=== PATIENT | male | born 1950 | race Caucasian/White ===

== ENCOUNTER 2022-08-19 10:56 | Inpatient (IN) | payer MEDICARE, OTHER, SELFPAY ==
[2022-08-19] VITALS (10 sets, daily range): BP systolic 89–125; BP diastolic 50–84; PULSE 59–83; RESP 6–23; TEMP 36.6–36.7; O2SAT 89–95; BMI 33.5; BMI 33.0
--- NOTE | 2022-08-19 11:04 | XR_ITS ---
The [address] [address] Patient Name: KYLIE RUEDA MRN: [id number] date: 1950 Sex: M Assigned Patient Location: ER Current Patient Location: ER Accession/Order Number: [id number] Exam Date: 08/19/2022 11:10 Report Date: 08/19/2022 11:40 At the request of: DAVON ORTIZ Procedure: XR chest 1V EXAM: XR chest 1V HISTORY: possible CVA COMPARISON: None. TECHNIQUE: Chest X-ray AP, 1 view FINDINGS: Support devices: None. Lungs/pleura: No consolidation, effusion, or pneumothorax. Heart and mediastinum: Normal contours. Bones: No acute abnormality identified. Impression: No radiographic evidence of acute cardiopulmonary process. Electronically authenticated by: XAVIER SLOAN Date: 08/19/2022 11:40
--- NOTE | 2022-08-19 11:04 | ECG_ITS ---
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
--- NOTE | 2022-08-19 11:04 | CT_ITS ---
The [address] [address] Patient Name: KYLIE RUEDA MRN: [id number] date: 1950 Sex: M Assigned Patient Location: ER Current Patient Location: ED.MAIN Accession/Order Number: [id number] Exam Date: 08/19/2022 11:10 Report Date: 08/19/2022 11:32 At the request of: DAVON ORTIZ Procedure: CT stroke head/brain wo con EXAM: CT stroke head/brain wo con HISTORY: speech difficulty since last night COMPARISON: 01/24/2022 TECHNIQUE: CT images were obtained of the head without intravenous contrast. Images were reformatted in the coronal and sagittal planes. FINDINGS: No acute intracranial hemorrhage. No acute loss of alanis/white differentiation. The ventricles and sulci are normal in appearance. The osseous structures are unremarkable. No soft tissue abnormality identified. There is a small amount of mucus in the right sphenoid sinus. Otherwise the paranasal sinuses are clear. IMPRESSION: 1. No acute intracranial abnormality. 2. Mild acute sphenoid sinusitis. Findings were reported to Dr. Ortiz at 1131 hours on 08/19/2022. Electronically authenticated by: BHARAT NEGRON Date: 08/19/2022 11:32
--- NOTE | 2022-08-19 11:06 | ED.NEUROSD1 ---
HPI - Neuro Symptoms/Deficit General Chief Complaint: Neuro Symptoms/Deficit Stated Complaint: STROKE LIKE SYMPTOMS Time Seen by Provider: 08/19/22 10:57 Source: patient and family Mode of arrival: Wheelchair History of Present Illness HPI Narrative: 71-year-old male presents for weakness. Since last night he's been dropping things with both hands and he's had trouble with his speech. He had a headache on the way here but not now. He had a stroke years ago. He fell apparently last night and hit his head. Related Data Home Medications Medication Instructions Recorded Confirmed albuterol sulfate 90 mcg/actuation inhalation 08/19/22 aerosol inhaler atorvastatin 40 mg tablet 40 mg PO DAILY 08/19/22 08/19/22 baclofen 10 mg tablet 10 mg PO TID 08/19/22 08/19/22 carbamazepine 400 mg 400 mg PO Q12H 08/19/22 08/19/22 tablet,extended release,12 hr clopidogrel 75 mg tablet 75 mg PO DAILY 08/19/22 08/19/22 diazepam 5 mg tablet 5 mg PO Q8H PRN anxiety 08/19/22 08/19/22 duloxetine 60 mg capsule,delayed 120 mg PO DAILY 08/19/22 08/19/22 release fluticasone propionate 50 1 spray intranasal DAILY 08/19/22 08/19/22 mcg/actuation nasal spray,suspension furosemide 40 mg tablet 40 mg PO DAILY 08/19/22 08/19/22 levalbuterol tartrate 45 2 puff inhalation Q6H 08/19/22 08/19/22 mcg/actuation aerosol inhaler lisinopril 10 mg tablet 10 mg PO DAILY 08/19/22 08/19/22 loratidine 10 mg PO .morning 08/19/22 08/19/22 magnesium hydroxide 400 mg/5 mL 30 ml PO DAILY PRN constipation 08/19/22 08/19/22 oral suspension montelukast 10 mg tablet 10 mg PO DAILY 08/19/22 08/19/22 omeprazole 40 mg capsule,delayed 40 mg PO DAILY 08/19/22 08/19/22 release oxycodone 5 mg capsule 5 mg PO Q8H 08/19/22 08/19/22 pregabalin 100 mg capsule 100 mg PO Q12H 08/19/22 08/19/22 terazosin 2 mg capsule 2 mg PO Q12H 08/19/22 08/19/22 verapamil 240 mg tablet,extended 240 mg PO DAILY 08/19/22 08/19/22 release Allergies Allergy/AdvReac Type Severity Reaction Status Date / Time contrast AdvReac Unknown Uncoded 08/19/22 11:04 Review of Systems ROS Narrative A ten point review of systems is negative except as noted above. Exam Narrative Exam Narrative: Nurses note and vital signs reviewed and patient is not hypoxic. General: The patient appears in no apparent distress. Patient is resting comfortably on cart. Skin: Warm, dry, no pallor noted. There is no rash noted. Head: Normocephalic, atraumatic Eye: Normal conjunctiva, no drainage, EOMI. PERRL Ears, Nose, Mouth, and Throat: oral mucosa is moist. Nares patent. Cardiovascular: Regular Rate and Rhythm Respiratory: Patient is in no distress, no accessory muscle use, lungs are clear to auscultation, no wheezing, rales or rhonchi Back: non-tender GI: nontender. Morphine pain pump present in the left lower quadrant Musculoskeletal: The patient has no evidence of calf tenderness, no pitting edema, symmetrical pulses noted bilaterally Neurological: A&O x4, speech is slightly slurred. Cranial nerves II through XII intact. Upper and lower extremity strength is symmetric. Psychiatric: Cooperative Constitutional Vital Signs - 24 hr 08/19/22 10:59 08/19/22 11:00 08/19/22 11:00 Temperature 98 F Pulse Rate 62 Pulse Rate [Monitor] 83 Respiratory Rate 22 16 Blood Pressure 123/67 H Blood Pressure [Right Arm] 123/67 H Pulse Oximetry 91 L 92 L 91 L Oxygen Delivery Method Room Air 08/19/22 11:00 Temperature Pulse Rate 59 L Pulse Rate [Monitor] Respiratory Rate 10 L Blood Pressure 123/67 H Blood Pressure [Right Arm] Pulse Oximetry 89 L Oxygen Delivery Method Course Vital Signs Vital signs: Vital Signs Temperature 98 F 08/19/22 10:59 Pulse Rate 83 08/19/22 10:59 Respiratory Rate 22 08/19/22 10:59 Blood Pressure 123/67 H 08/19/22 10:59 Pulse Oximetry 91 L 08/19/22 10:59 Oxygen Delivery Method Room Air 08/19/22 10:59 Temperature 98 F 08/19/22 10:59 Pulse Rate 61 08/19/22 12:39 Respiratory Rate 8 L 08/19/22 12:39 Blood Pressure 91/54 L 08/19/22 12:39 Pulse Oximetry 92 L 08/19/22 12:39 Oxygen Delivery Method Room Air 08/19/22 10:59 MDM - Neuro Symptoms/Deficit MDM Narrative Medical decision making narrative: patient is found to have acute kidney injury with a creatinine of 2.5. It was 1.09 in January. He is given gentle IV fluids and will be admitted. Clinically I do not suspect a stroke. Findings are discussed with the patient and his daughter. Differential Diagnosis Differential diagnosis: Likely other (stroke, electrolyte imbalance, acute kidney injury, hypoglycemia) Lab Data Attestation: I reviewed the patient's lab results. Labs: Lab Results 08/19/22 08/19/22 Range/Units 11:05 11:49 WBC 8.8 (4.0-11.0) 10^3/uL RBC 3.83 L (4.70-6.10) 10^6/uL Hgb 11.6 L (14.0-18.0) g/dL Hct 34.9 L (42.0-54.0) % MCV 91.1 (80.0-94.0) fL MCH 30.3 (25.9-34.0) pg MCHC 33.2 (29.9-35.2) g/dL RDW 13.6 (11.0-15.0) % Plt Count 295 (150-450) 10^3/uL MPV 9.0 L (9.5-13.5) fL Neut % (Auto) 56.2 (43.0-75.0) % Lymph % (Auto) 30.7 (20.5-60.0) % [place] % (Auto) 9.4 (1.7-12.0) % Eos % (Auto) 2.8 (0.9-7.0) % Baso % (Auto) 0.6 (0.2-2.0) % Neut # (Auto) 4.9 (1.4-6.5) 10^3/uL Lymph # (Auto) 2.7 (1.2-3.8) 10^3/uL [place] # (Auto) 0.8 (0.3-0.8) 10^3/uL Eos # (Auto) 0.3 (0.0-0.7) 10^3/uL Baso # (Auto) 0.1 (0.0-0.1) 10^3/uL Abs Immat Gran (auto) 0.03 (0.00-0.03) 10^3/uL Imm/Tot Granulo (auto) 0.3 (0.0-0.5) % PT 10.3 (9.0-11.6) sec INR 0.97 APTT 21.6 L (22.3-36.2) sec Sodium 140 (136-145) mmol/L Potassium 3.6 (3.5-5.1) mmol/L Chloride 101 (98-107) mmol/L Carbon Dioxide 29.8 (21.0-32.0) mmol/L Anion Gap 12.8 BUN 27.0 H (7.0-18.0) mg/dL Creatinine 2.50 H (0.70-1.30) mg/dL Est GFR ( Amer) 31 L (>=60) Est GFR (Non-Af Amer) 25 L (>=60) BUN/Creatinine Ratio 10.8 Glucose 126 H (74-106) mg/dL Calcium 8.9 (8.5-10.1) mg/dL Total Bilirubin 0.4 (0.2-1.0) mg/dL AST 18 (15-37) U/L ALT 24 (16-63) U/L Alkaline Phosphatase 90 (46-116) U/L Total Protein 7.5 (6.4-8.2) g/dL Albumin 3.8 (3.4-5.0) g/dL Globulin 3.7 g/dL Albumin/Globulin Ratio 1.0 POC Glucose 124 H (74-106) mg/dL ECG Data Attestation: I personally reviewed and interpreted this ECG as follows: (EKG on my interpretation shows sinus rhythm with a rate of 74) Discharge Plan Discharge Chief Complaint: Neuro Symptoms/Deficit Clinical Impression: Acute kidney injury Patient Disposition: Admitted as Observation Time of Disposition Decision: 12:32 Condition: Good
[2022-08-19 11:26] LABS: Basophils Absolute Auto 0.1 10^3/uL (0.0-0.1); Basophils Percent Auto 0.6 % (0.2-2.0); Eosinophils Absolute Auto 0.3 10^3/uL (0.0-0.7); Eosinophils Percent Auto 2.8 % (0.9-7.0); Hematocrit 34.9 % (42.0-54.0); Hemoglobin 11.6 g/dL (14.0-18.0); Immature Granulocytes Abs Auto 0.03 10^3/uL (0.00-0.03); Immature Granulocytes Pct Auto 0.3 % (0.0-0.5); Lymphocytes Absolute Auto 2.7 10^3/uL (1.2-3.8); Lymphocytes Percent Auto 30.7 % (20.5-60.0); Mean Corpuscular HGB Conc 33.2 g/dL (29.9-35.2); Mean Corpuscular Hemoglobin 30.3 pg (25.9-34.0); Mean Corpuscular Volume 91.1 fL (80.0-94.0); Monocytes Absolute Auto 0.8 10^3/uL (0.3-0.8); Monocytes Percent Auto 9.4 % (1.7-12.0); Neutrophils Absolute Auto 4.9 10^3/uL (1.4-6.5); Neutrophils Percent Auto 56.2 % (43.0-75.0); Platelet Count 295 10^3/uL (150-450); Red Blood Count 3.83 10^6/uL (4.70-6.10); Red Cell Distribution Width 13.6 % (11.0-15.0); White Blood Count 8.8 10^3/uL (4.0-11.0)
[2022-08-19 11:39] LABS: Alanine Aminotransferase 24 U/L (16-63); Albumin Level 3.8 g/dL (3.4-5.0); Alkaline Phosphatase 90 U/L (46-116); Anion Gap 12.8; Aspartate Amino Transferase 18 U/L (15-37); BUN Creatinine Ratio 10.8; Bilirubin Total 0.4 mg/dL (0.2-1.0); Calcium 8.9 mg/dL (8.5-10.1); Carbon Dioxide 29.8 mmol/L (21.0-32.0); Chloride 101 mmol/L (98-107); Estimated GFR (African America 31 (>=60); Estimated GFR (Non-African Ame 25 (>=60); Globulin 3.7 g/dL; Glucose 126 mg/dL (74-106); Potassium 3.6 mmol/L (3.5-5.1); Sodium 140 mmol/L (136-145); Total Protein 7.5 g/dL (6.4-8.2)
[2022-08-19 11:49] LABS: INR 0.97; Partial Thromboplastin Time 21.6 sec (22.3-36.2); Prothrombin Time 10.3 sec (9.0-11.6)
[2022-08-19 11:50] LABS: Glucometer 124 mg/dL (74-106)
[2022-08-19] MEDS: 0.9 % SODIUM CHLORIDE 1,000 ML 100 ML IV ×2 (13:02→21:05)
[2022-08-19] MEDS: ENOXAPARIN SODIUM 30 MG/0.3 ML SYRINGE SUBQ (18:27)
[2022-08-19] MEDS: DIAZEPAM 5 MG TABLET PO ×2 (18:27→23:37)
[2022-08-19] MEDS: OXYCODONE HCL 5 MG TABLET PO (18:27)
[2022-08-19] MEDS: PREGABALIN 100 MG CAPSULE PO (18:27)
[2022-08-19] MEDS: MONTELUKAST SODIUM 10 MG TABLET PO (19:47)
[2022-08-19] MEDS: ATORVASTATIN CALCIUM 40 MG TABLET PO (19:47)
[2022-08-19] MEDS: BACLOFEN 10 MG TABLET PO (21:04)
[2022-08-19] MEDS: TERAZOSIN HCL 1 MG CAPSULE 2 MG PO (21:04)
[2022-08-19] MEDS: CARBAMAZEPINE 200 MG TABLET 400 MG PO (21:04)
[2022-08-19] MEDS: LEVALBUTEROL HCL 1.25 MG/3 ML VIAL NEB IH (22:38)
[2022-08-20] VITALS (8 sets, daily range): BP systolic 102–143; BP diastolic 60–72; PULSE 59–71; RESP 16–18; TEMP 36.6–36.8; O2SAT 92–97; BMI 33.0
[2022-08-20] MEDS: LEVALBUTEROL HCL 1.25 MG/3 ML VIAL NEB IH (04:20)
[2022-08-20] MEDS: BACLOFEN 10 MG TABLET PO ×3 (05:11→21:34)
[2022-08-20] MEDS: OXYCODONE HCL 5 MG TABLET PO ×3 (05:11→21:34)
[2022-08-20] MEDS: DIAZEPAM 5 MG TABLET PO ×3 (05:11→19:50)
[2022-08-20] MEDS: OMEPRAZOLE 40 MG CAPSULE.DR PO (05:11)
[2022-08-20] MEDS: PREGABALIN 100 MG CAPSULE PO ×2 (05:12→21:34)
[2022-08-20] MEDS: 0.9 % SODIUM CHLORIDE 1,000 ML 100 ML IV (05:13)
[2022-08-20 05:55] LABS: Anion Gap 13.7; BUN Creatinine Ratio 14.7; Calcium 8.3 mg/dL (8.5-10.1); Carbon Dioxide 26.6 mmol/L (21.0-32.0); Chloride 105 mmol/L (98-107); Estimated GFR (African America 51 (>=60); Estimated GFR (Non-African Ame 42 (>=60); Glucose 126 mg/dL (74-106); Potassium 3.3 mmol/L (3.5-5.1); Sodium 142 mmol/L (136-145)
--- NOTE | 2022-08-20 08:38 | SWNOTE1 ---
SW met with pt to discuss dc needs. Pt live at home by himself. His daughter does stop and check on him as needed. Pt has walker, wheelchair, and cane at home. He will use whatever device he needs. Pt does still drive and go to grocery store, but stated it depends how he feels. He did voice he has some depression and anxiety. He does take medication for it. SW asked if he spoke with his PCP about adjusting his meds, he stated no. SW asked if he went to any kind of counseling? Pt stated he does not, but he would take resources. SW to give pt list of counseling in area. Pt let SW know that his daughter would like him to have home health come in to do medication education. SW did show pt star rating list from medicare.gov, pt does not have a preference. SW to send referral to [facility]. HEBERT did ask permission to call pt's daughter as well. SW to call daughter to see if she has preference on home health company.
[2022-08-20] MEDS: CARBAMAZEPINE 200 MG TABLET 400 MG PO ×2 (08:58→21:41)
[2022-08-20] MEDS: VERAPAMIL HCL ER 240 MG TABLET PO (08:59)
[2022-08-20] MEDS: DULOXETINE HCL 60 MG CAPSULE.DR PO (08:59)
[2022-08-20] MEDS: CLOPIDOGREL BISULFATE 75 MG TABLET PO (08:59)
[2022-08-20] MEDS: CETIRIZINE HCL 10 MG TABLET PO (09:01)
[2022-08-20] MEDS: FLUTICASONE PROPIONATE 50 MCG NASAL SPRAY 1 SPRAY NS (09:02)
--- NOTE | 2022-08-20 09:02 | SWNOTE1 ---
HEBERT spoke with pt's daughter, Kathy, about dc plans for pt. She did voice that pt does not take his meds and also has a fall once a week at home. SW let her know we will see how he does with therapy and what their recommendations are. HEBERT asked daughter about home health and if she had a preference, she stated they would like [facility] as he has had them in past. HEBERT to send referral.
--- NOTE | 2022-08-20 11:32 | CM.NOTE ---
Rounds made with Dr. Black, no discharge today. PT and OT will evaluate pt and we will follow for discharg needs.
--- NOTE | 2022-08-20 12:27 | PM.HP ---
H&P: HPI History of Present Illness Chief complaint: Weakness Narrative: 71 y/o male to ER with weakness x 2 days. Reports decreased appetite and not eating or drinking much. Started to drop things and had a fall. Continued to have weakness and to ER. Afebrile and normal WBC. No focal deficits in ER and urine normal. Labs showed acute renal failure with estimated GFR 25. Review of records show normal GFR >60 in January of 2022. Admitted for treatment. Started IV fluids. Labs improved overnight but still abnormal. Strength improved but continues to have weakness. Review of Systems ROS Constitutional Denies: fever, chills or night sweats Cardiovascular Denies: chest pain, palpitations or edema Respiratory Denies: shortness of breath, cough or wheezing Gastrointestinal Denies: abdominal pain, nausea, vomiting or diarrhea Genitourinary Denies: painful urination [facility] Medical History (Updated 08/20/22 @ 12:32 by Phan Black MD) Surgical History (Updated 08/19/22 @ 14:33 by Sandra Brooks RN) Family History (Updated 08/19/22 @ 14:16 by Sandra Brooks RN) Sister Family history of cancer Social History (Updated 08/19/22 @ 14:18 by Sandra Brooks RN) Within the past year, how often did you have a drink containing alcohol: never Score interpretation: A score less than 4 is consistent with normal alcohol consumption. Smoking status: Never smoker Non-prescribed substance use: denies use Little interest or pleasure in doing things: several days Feeling down, depressed, or hopeless: several days Feel stressed/tense/nervous/anxious/difficulty sleeping: to some extent Gender Identity: male Meds Home Medications and Allergies Home Medications Medication Instructions Recorded Confirmed Type albuterol sulfate 90 mcg/actuation 1 inh inhalation Q4H PRN shortness 08/19/22 08/19/22 History aerosol inhaler of breath or wheezing atorvastatin 40 mg tablet 40 mg PO DAILY 08/19/22 08/19/22 History baclofen 10 mg tablet 10 mg PO TID 08/19/22 08/19/22 History carbamazepine 400 mg 400 mg PO Q12H 08/19/22 08/19/22 History tablet,extended release,12 hr clopidogrel 75 mg tablet 75 mg PO DAILY 08/19/22 08/19/22 History diazepam 5 mg tablet 5 mg PO Q6H anxiety 08/19/22 08/19/22 History duloxetine 60 mg capsule,delayed 60 mg PO DAILY 08/19/22 08/19/22 History release fluticasone propionate 50 1 spray intranasal DAILY 08/19/22 08/19/22 History mcg/actuation nasal spray,suspension furosemide 40 mg tablet 40 mg PO DAILY 08/19/22 08/19/22 History levalbuterol tartrate 45 2 puff inhalation Q6H 08/19/22 08/19/22 History mcg/actuation aerosol inhaler lisinopril 10 mg tablet 10 mg PO DAILY 08/19/22 08/19/22 History loratadine 10 mg PO DAILY 08/19/22 08/19/22 History magnesium hydroxide 400 mg/5 mL 30 ml PO DAILY PRN constipation 08/19/22 08/19/22 History oral suspension montelukast 10 mg tablet 10 mg PO DAILY 08/19/22 08/19/22 History omeprazole 40 mg capsule,delayed 40 mg PO DAILY 08/19/22 08/19/22 History release oxycodone 5 mg capsule 5 mg PO Q8H PRN pain 08/19/22 08/19/22 History pregabalin 100 mg capsule 100 mg PO Q12H 08/19/22 08/19/22 History terazosin 2 mg capsule 2 mg PO DAILY 08/19/22 08/19/22 History verapamil 240 mg tablet,extended 240 mg PO DAILY 08/19/22 08/19/22 History release Allergies Allergy/AdvReac Type Severity Reaction Status Date / Time contrast AdvReac Unknown Uncoded 08/19/22 11:04 Exam Constitutional Vital Signs - 24 hr 08/19/22 12:39 08/19/22 12:39 08/19/22 13:00 Temperature Pulse Rate 61 59 L 61 Pulse Rate [Monitor] Respiratory Rate 8 L 6 L 21 Blood Pressure 91/54 L 91/54 L 89/50 L Blood Pressure [Right Arm] Pulse Oximetry 92 L 95 95 Oxygen Delivery Method 08/19/22 13:31 08/19/22 14:27 08/19/22 14:43 Temperature 98.1 F Pulse Rate 60 60 Pulse Rate [Monitor] Respiratory Rate 23 18 Blood Pressure 98/52 L Blood Pressure [Right Arm] 125/84 H Pulse Oximetry 93 L 93 L Oxygen Delivery Method Room Air Room Air 08/19/22 19:33 08/19/22 21:03 08/19/22 22:38 Temperature 98.0 F Pulse Rate 70 62 Pulse Rate [Monitor] 83 Respiratory Rate 18 18 18 Blood Pressure Blood Pressure [Right Arm] 118/61 Pulse Oximetry 90 L 92 L Oxygen Delivery Method Room Air 08/19/22 22:50 08/20/22 04:20 08/20/22 04:33 Temperature Pulse Rate 60 59 L 63 Pulse Rate [Monitor] Respiratory Rate 18 18 18 Blood Pressure Blood Pressure [Right Arm] Pulse Oximetry 95 92 L 95 Oxygen Delivery Method Room Air Room Air 08/20/22 04:20 08/20/22 05:02 08/20/22 08:00 Temperature 98.0 F Pulse Rate 59 L 70 Pulse Rate [Monitor] Respiratory Rate 18 18 16 Blood Pressure Blood Pressure [Right Arm] Pulse Oximetry 92 L 97 Oxygen Delivery Method Room Air Room Air 08/20/22 08:59 Temperature Pulse Rate Pulse Rate [Monitor] Respiratory Rate Blood Pressure 102/60 Blood Pressure [Right Arm] Pulse Oximetry Oxygen Delivery Method Documenting provider has reviewed patient's vital signs: yes Common normals: no apparent distress, oriented x3 and alert HENMT Common normals: normocephalic Eye Common normals: PERRL and EOMs intact bilaterally Respiratory Common normals: clear to auscultation bilaterally Cardio Common normals: regular rate, regular rhythm, no gallops, no murmurs and no rub Extremity General: no edema Results Labs Labs: [facility] 08/20/22 05:10 Sodium 142 Potassium 3.3 L Chloride 105 Carbon Dioxide 26.6 BUN 24.0 H Creatinine 1.63 H Glucose 126 H Calcium 8.3 L Assessment and Plan Assessment and Plan (1) Acute renal failure: (2) Dehydration: (3) Generalized weakness: (4) Hypertension: (5) Paroxysmal atrial fibrillation: (6) COPD (chronic obstructive pulmonary disease): Plan Presented with acute renal failure as evidenced by reduction of GFR >50% from baseline. Continue IV fluids and monitor labs. Resume home medication. Start PT/OT for weakness. Patient will need at least 2 midnights in the hospital.
--- NOTE | 2022-08-20 14:37 | SWNOTE1 ---
HEBERT called and spoke with Nilda at [facility] health and they are able to accept. SW let her know he may need to go to SNF, but if he does not and is discharged, SW will leave information for nursing to fax dc orders.
[2022-08-20] MEDS: 0.9 % SODIUM CHLORIDE 1,000 ML 1000 ML IV (16:31)
[2022-08-20] MEDS: ENOXAPARIN SODIUM 30 MG/0.3 ML SYRINGE SUBQ (17:52)
[2022-08-20] MEDS: ATORVASTATIN CALCIUM 40 MG TABLET PO (19:50)
[2022-08-20] MEDS: MONTELUKAST SODIUM 10 MG TABLET PO (19:50)
[2022-08-20 20:40] LABS: Glucometer 123 mg/dL (74-106)
[2022-08-20] MEDS: TERAZOSIN HCL 1 MG CAPSULE 2 MG PO (21:34)
[2022-08-21] MEDS: DIAZEPAM 5 MG TABLET PO ×3 (00:57→19:56)
[2022-08-21] MEDS: 0.9 % SODIUM CHLORIDE 1,000 ML 100 ML IV ×3 (00:57→22:53)
[2022-08-21] MEDS: ACETAMINOPHEN 500 MG TABLET 1000 MG PO ×2 (00:57→19:51)
[2022-08-21] MEDS: BACLOFEN 10 MG TABLET PO ×3 (05:49→21:12)
[2022-08-21] MEDS: OMEPRAZOLE 40 MG CAPSULE.DR PO (05:49)
[2022-08-21] MEDS: PREGABALIN 100 MG CAPSULE PO ×2 (05:53→17:49)
[2022-08-21 06:00] VITALS: BP 91/53; PULSE 56; RESP 18; TEMP 36.7; O2SAT 93
[2022-08-21 06:21] LABS: Anion Gap 7.8; BUN Creatinine Ratio 16.1; Carbon Dioxide 28.3 mmol/L (21.0-32.0); Chloride 112 mmol/L (98-107); Estimated GFR (African America >60 (>=60); Estimated GFR (Non-African Ame >60 (>=60); Glucose 137 mg/dL (74-106); Potassium 4.1 mmol/L (3.5-5.1); Sodium 144 mmol/L (136-145)
[2022-08-21 06:22] LABS: Calcium 8.1 mg/dL (8.5-10.1)
[2022-08-21] MEDS: CARBAMAZEPINE 200 MG TABLET 400 MG PO ×2 (08:57→20:47)
[2022-08-21] MEDS: FLUTICASONE PROPIONATE 50 MCG NASAL SPRAY 1 SPRAY NS (08:57)
[2022-08-21] MEDS: CLOPIDOGREL BISULFATE 75 MG TABLET PO (08:57)
[2022-08-21] MEDS: VERAPAMIL HCL ER 240 MG TABLET PO (08:57)
[2022-08-21] MEDS: CETIRIZINE HCL 10 MG TABLET PO (08:58)
[2022-08-21] MEDS: DULOXETINE HCL 60 MG CAPSULE.DR PO (08:59)
[2022-08-21] MEDS: OXYCODONE HCL 5 MG TABLET PO ×2 (09:04→17:46)
[2022-08-21 09:38] LABS: Basophils Absolute Auto 0.1 10^3/uL (0.0-0.1); Basophils Percent Auto 0.9 % (0.2-2.0); Eosinophils Absolute Auto 0.3 10^3/uL (0.0-0.7); Eosinophils Percent Auto 5.9 % (0.9-7.0); Hematocrit 34.8 % (42.0-54.0); Hemoglobin 10.8 g/dL (14.0-18.0); Immature Granulocytes Abs Auto 0.01 10^3/uL (0.00-0.03); Immature Granulocytes Pct Auto 0.2 % (0.0-0.5); Lymphocytes Absolute Auto 2.4 10^3/uL (1.2-3.8); Lymphocytes Percent Auto 45.6 % (20.5-60.0); Mean Corpuscular Hemoglobin 29.8 pg (25.9-34.0); Mean Corpuscular Volume 95.9 fL (80.0-94.0); Mean Platelet Volume 9.3 fL (9.5-13.5); Monocytes Absolute Auto 0.5 10^3/uL (0.3-0.8); Monocytes Percent Auto 10.2 % (1.7-12.0); Neutrophils Percent Auto 37.2 % (43.0-75.0); Platelet Count 248 10^3/uL (150-450); Red Blood Count 3.63 10^6/uL (4.70-6.10); Red Cell Distribution Width 13.5 % (11.0-15.0); White Blood Count 5.3 10^3/uL (4.0-11.0)
--- NOTE | 2022-08-21 10:12 | P.DS_ITS ---
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 Reason for consult:: Home health 08/19/22 17:37 Occupational Therapy Eval and Treat Routine Physical Therapy Eval and Treat Routine DS: Diagnosis Discharge Diagnosis (1) Acute renal failure: (2) Dehydration: (3) Generalized weakness: (4) Hypertension: (5) Paroxysmal atrial fibrillation: (6) COPD (chronic obstructive pulmonary disease): DS: Summary Time Spent with Patient Time attestation: Total time spent providing and/or coordinating discharge services: Exam Constitutional Vital Signs, click to edit/add: Last Vital Signs Temp 98.1 F 08/21/22 06:00 Pulse 56 L 08/21/22 06:00 Resp 18 08/21/22 06:00 BP 91/53 L 08/21/22 06:00 Pulse Ox 93 L 08/21/22 06:00 O2 Del Method Room Air 08/21/22 06:00 DS: Data Data Completed and Pending Labs on day of discharge: Labs from last 24 hours 08/21/22 08/21/22 08/20/22 09:23 04:00 20:16 WBC 5.3 RBC 3.63 L Hgb 10.8 L Hct 34.8 L MCV 95.9 H MCH 29.8 MCHC 31.0 RDW 13.5 Plt Count 248 MPV 9.3 L Neut % (Auto) 37.2 L Lymph % (Auto) 45.6 [place] % (Auto) 10.2 Eos % (Auto) 5.9 Baso % (Auto) 0.9 Neut # (Auto) 2.0 Lymph # (Auto) 2.4 [place] # (Auto) 0.5 Eos # (Auto) 0.3 Baso # (Auto) 0.1 Abs Immat Gran (auto) 0.01 Imm/Tot Granulo (auto) 0.2 Sodium 144 Potassium 4.1 Chloride 112 H Carbon Dioxide 28.3 Anion Gap 7.8 BUN 18.0 Creatinine 1.12 Est GFR ( Amer) >60 Est GFR (Non-Af Amer) >60 BUN/Creatinine Ratio 16.1 Glucose 137 H Calcium 8.1 L POC Glucose 123 H Discharge Plan Discharge Condition: Good Discharge Medications: No Action atorvastatin 40 mg tablet 40 mg PO DAILY baclofen 10 mg tablet 10 mg PO TID carbamazepine 400 mg tablet extended release 12 hr 400 mg PO Q12H clopidogrel 75 mg tablet 75 mg PO DAILY diazepam 5 mg tablet 5 mg PO Q6H duloxetine 60 mg capsule,delayed release(DR/EC) 60 mg PO DAILY furosemide 40 mg tablet 40 mg PO DAILY levalbuterol tartrate 45 mcg/actuation HFA aerosol inhaler 2 puff INHALATION Q6H lisinopril 10 mg tablet 10 mg PO DAILY montelukast 10 mg tablet 10 mg PO DAILY pregabalin 100 mg capsule 100 mg PO Q12H terazosin 2 mg capsule 2 mg PO DAILY albuterol sulfate 90 mcg/actuation HFA aerosol inhaler 1 inh INHALATION Q4H PRN (Reason: shortness of breath or wheezing) fluticasone propionate 50 mcg/actuation spray,suspension 1 spray INTRANASAL DAILY loratadine 10 mg PO DAILY magnesium hydroxide 400 mg/5 mL suspension 30 ml PO DAILY PRN (Reason: constipation) omeprazole 40 mg capsule,delayed release(DR/EC) 40 mg PO DAILY oxycodone 5 mg capsule 5 mg PO Q8H PRN (Reason: pain) verapamil 240 mg tablet extended release 240 mg PO DAILY
[2022-08-21 11:30] LABS: Glucometer 166 mg/dL (74-106)
--- NOTE | 2022-08-21 11:31 | PT.DAILY ---
Physical Therapy Daily Note PT Daily Note/Assess Start: 08/21/22 11:25 Freq: Status: Active Protocol: Document 08/21/22 10:25 GABRIEL (Rec: 08/21/22 11:31 GABRIEL [id number]) Physical Therapy Daily Note/Assessment Time In/Time Out Time In 10:26 Time Out 10:50 Pain In Pain N/A Pain Out Pain N/A Subjective Subjective Patient reports feeling better today, not as shaky. On fence if we wants to go home with home health or to SNF. Therapeutic Exercise Time Therapeutic Exercise Minutes (minutes) 10 Therapeutic Exercise Units 1 Therapeutic Exercise Treatment Therapeutic Exercise Treatment Seated exercises B LE with AROM sitting EOB 15 reps each plane to promote improved strength. Therapeutic Activity Time Therapeutic Activity Minutes (minutes) 14 Therapeutic Activity Units 1 Therapeutic Activity Treatment Bed Mobility Ability Modified Independent Chair Transfer Ability Standby Assistance Therapeutic Activity Comments Patient also ambulates 50 ft. with RW SBA. Cues for safety. Total Physical Therapy Time Total Therapy Minutes 24 Total Physical Therapy Units 2 Summary Daily Note Summary Patient does demonstrate improved ability with transfers and gait today. Does get dizzy post RX requiring patient to lay down. Patient does requires cues for safety and continues to demonstrate B LE weakness. Would benefit more from short SNF stay vs HH at this time. This was discussed with patient and he agrees.
[2022-08-21 13:16] VITALS: BP 158/89; PULSE 59; RESP 20; TEMP 36.7; O2SAT 94
--- NOTE | 2022-08-21 15:09 | P.PN_ITS ---
Progress Note: Subjective Subjective Interval history: Patient is ambulating somewhat better. But when working with physical therapy he had a near syncopal episode Exam Constitutional Vital Signs, click to edit/add: Last Vital Signs Temp 98.1 F 08/21/22 13:16 Pulse 59 L 08/21/22 13:16 Resp 20 08/21/22 13:16 BP 158/89 H 08/21/22 13:16 Pulse Ox 94 L 08/21/22 13:16 O2 Del Method Room Air 08/21/22 13:16 [facility] Common normals: normocephalic Chest Common normals: inspection of chest normal Respiratory Common normals: normal respiratory effort, no retractions and clear to auscultation bilaterally Cardio Common normals: regular rate, regular rhythm and no murmurs GI Common normals: Normal to inspection, nondistended, normoactive bowel sounds present, soft to palpation, non-tender and no masses Progress Note: Objective Labs Labs: Short CBC 08/21/22 Range/Units 09:23 WBC 5.3 (4.0-11.0) 10^3/uL Hgb 10.8 L (14.0-18.0) g/dL Hct 34.8 L (42.0-54.0) % Plt Count 248 (150-450) 10^3/uL BMP 08/21/22 04:00 Sodium 144 Potassium 4.1 Chloride 112 H Carbon Dioxide 28.3 BUN 18.0 Creatinine 1.12 Glucose 137 H Calcium 8.1 L Progress Note: A&P Assessment and Plan (1) Acute renal failure: (2) Dehydration: (3) Generalized weakness: (4) Hypertension: (5) Paroxysmal atrial fibrillation: (6) COPD (chronic obstructive pulmonary disease): Plan Patient was admitted with significant weakness. Hypotension. Hypokalemia. Acute kidney injury. Although symptoms are overall improved today. When he tried ambulating with physical therapy had a near syncopal episode. We will maintain current treatment plan as overall he is better. When maintain patient as an inpatient status. Unable to improve patient's overall physical condition within the first 24 hours. We will required maintaining current medical managementAnd continuous medical management for the next 2 to 3 days.
[2022-08-21] MEDS: ENOXAPARIN SODIUM 30 MG/0.3 ML SYRINGE SUBQ (16:07)
[2022-08-21 16:24] LABS: Glucometer 273 mg/dL (74-106)
[2022-08-21] MEDS: MONTELUKAST SODIUM 10 MG TABLET PO (19:56)
[2022-08-21] MEDS: ATORVASTATIN CALCIUM 40 MG TABLET PO (19:56)
[2022-08-21 19:59] VITALS: RESP 16
[2022-08-21 20:00] VITALS: RESP 16
[2022-08-21 20:15] LABS: Glucometer 127 mg/dL (74-106)
[2022-08-21 21:46] VITALS: BP 172/97; PULSE 75; RESP 18; TEMP 36.7; O2SAT 92
[2022-08-21] MEDS: TERAZOSIN HCL 1 MG CAPSULE 2 MG PO (22:56)
[2022-08-22] VITALS (8 sets, daily range): BP systolic 143–204; BP diastolic 85–112; PULSE 55–66; RESP 12–20; TEMP 36.5–37.1; O2SAT 93–96
[2022-08-22 05:04] LABS: Basophils Absolute Auto 0.1 10^3/uL (0.0-0.1); Basophils Percent Auto 0.9 % (0.2-2.0); Eosinophils Absolute Auto 0.5 10^3/uL (0.0-0.7); Eosinophils Percent Auto 7.6 % (0.9-7.0); Hematocrit 32.9 % (42.0-54.0); Hemoglobin 10.6 g/dL (14.0-18.0); Immature Granulocytes Abs Auto 0.01 10^3/uL (0.00-0.03); Immature Granulocytes Pct Auto 0.1 % (0.0-0.5); Lymphocytes Percent Auto 44.4 % (20.5-60.0); Mean Corpuscular HGB Conc 32.2 g/dL (29.9-35.2); Mean Corpuscular Hemoglobin 29.9 pg (25.9-34.0); Mean Corpuscular Volume 92.9 fL (80.0-94.0); Mean Platelet Volume 9.2 fL (9.5-13.5); Monocytes Absolute Auto 0.7 10^3/uL (0.3-0.8); Neutrophils Absolute Auto 2.5 10^3/uL (1.4-6.5); Platelet Count 260 10^3/uL (150-450); Red Blood Count 3.54 10^6/uL (4.70-6.10); Red Cell Distribution Width 13.3 % (11.0-15.0); White Blood Count 6.8 10^3/uL (4.0-11.0)
[2022-08-22] MEDS: BACLOFEN 10 MG TABLET PO ×3 (05:06→21:33)
[2022-08-22 05:30] LABS: BUN Creatinine Ratio 11.8; Calcium 8.6 mg/dL (8.5-10.1); Carbon Dioxide 26.8 mmol/L (21.0-32.0); Chloride 110 mmol/L (98-107); Estimated GFR (African America >60 (>=60); Estimated GFR (Non-African Ame >60 (>=60); Glucose 143 mg/dL (74-106); Potassium 4.8 mmol/L (3.5-5.1); Sodium 141 mmol/L (136-145)
[2022-08-22] MEDS: OMEPRAZOLE 40 MG CAPSULE.DR PO (05:36)
[2022-08-22] MEDS: PREGABALIN 100 MG CAPSULE PO ×2 (05:37→19:18)
[2022-08-22] MEDS: LEVALBUTEROL HCL 1.25 MG/3 ML VIAL NEB IH ×2 (06:39→22:01)
[2022-08-22] MEDS: DULOXETINE HCL 60 MG CAPSULE.DR PO (08:31)
[2022-08-22] MEDS: CLOPIDOGREL BISULFATE 75 MG TABLET PO (08:31)
[2022-08-22] MEDS: FLUTICASONE PROPIONATE 50 MCG NASAL SPRAY 1 SPRAY NS (08:31)
[2022-08-22] MEDS: CARBAMAZEPINE 200 MG TABLET 400 MG PO ×2 (08:31→21:33)
[2022-08-22] MEDS: OXYCODONE HCL 5 MG TABLET PO ×2 (08:31→19:53)
[2022-08-22] MEDS: CETIRIZINE HCL 10 MG TABLET PO (08:32)
[2022-08-22] MEDS: VERAPAMIL HCL ER 240 MG TABLET PO (08:32)
--- NOTE | 2022-08-22 11:09 | P.PN_ITS ---
Progress Note: Subjective Subjective Interval history: Still light headed with ambulation and walkin just in the room - bp stable - some Dyspnea as well wiht ambulation Exam Constitutional Vital Signs, click to edit/add: Last Vital Signs Temp 97.7 F 08/22/22 06:00 Pulse 55 L 08/22/22 06:40 Resp 12 08/22/22 06:40 BP 158/92 H 08/22/22 06:00 Pulse Ox 96 08/22/22 06:40 O2 Del Method Room Air 08/22/22 06:40 [facility] Common normals: normocephalic Chest Common normals: inspection of chest normal Respiratory Common normals: normal respiratory effort, no retractions and clear to auscultation bilaterally Cardio Common normals: regular rate, regular rhythm and no murmurs GI Common normals: Normal to inspection, nondistended, normoactive bowel sounds present, soft to palpation, non-tender and no masses Progress Note: Objective Labs Labs: Short CBC 08/22/22 Range/Units 04:45 WBC 6.8 (4.0-11.0) 10^3/uL Hgb 10.6 L (14.0-18.0) g/dL Hct 32.9 L (42.0-54.0) % Plt Count 260 (150-450) 10^3/uL BMP 08/22/22 04:45 Sodium 141 Potassium 4.8 Chloride 110 H Carbon Dioxide 26.8 BUN 11.0 Creatinine 0.93 Glucose 143 H Calcium 8.6 Progress Note: A&P Assessment and Plan (1) Acute renal failure: (2) Dehydration: (3) Generalized weakness: (4) Hypertension: (5) Paroxysmal atrial fibrillation: (6) COPD (chronic obstructive pulmonary disease): Plan Patient was admitted with significant weakness. Hypotension. Hypokalemia. [place] kidney injury. Although symptoms are overall again improved today. When he tried ambulating with physical therapy had a near syncopal episode. We will maintain current treatment plan as overall he is better. When maintain patient as an inpatient status. may need rehab - eval by PT recommended rehab
[2022-08-22] MEDS: ACETAMINOPHEN 500 MG TABLET 1000 MG PO (11:39)
[2022-08-22] MEDS: ENOXAPARIN SODIUM 30 MG/0.3 ML SYRINGE SUBQ (16:10)
[2022-08-22 16:13] LABS: Glucometer 162 mg/dL (74-106)
[2022-08-22 16:55] LABS: Glucometer 212 mg/dL (74-106)
[2022-08-22] MEDS: ATORVASTATIN CALCIUM 40 MG TABLET PO (19:53)
[2022-08-22] MEDS: MONTELUKAST SODIUM 10 MG TABLET PO (19:53)
[2022-08-22] MEDS: TERAZOSIN HCL 1 MG CAPSULE 2 MG PO (21:33)
[2022-08-23 02:16] LABS: Glucometer 147 mg/dL (74-106)
[2022-08-23 04:09] VITALS: BP 169/93; PULSE 75; RESP 18; TEMP 37; O2SAT 92
--- NOTE | 2022-08-23 06:05 | PC.NURSE ---
estimated amount, bloody
[2022-08-23] MEDS: PREGABALIN 100 MG CAPSULE PO (06:24)
[2022-08-23] MEDS: BACLOFEN 10 MG TABLET PO ×2 (06:24→14:00)
[2022-08-23] MEDS: OMEPRAZOLE 40 MG CAPSULE.DR PO (06:24)
[2022-08-23 07:50] LABS: Glucometer 140 mg/dL (74-106)
[2022-08-23] MEDS: DULOXETINE HCL 60 MG CAPSULE.DR PO (09:11)
[2022-08-23] MEDS: VERAPAMIL HCL ER 240 MG TABLET PO (09:11)
[2022-08-23] MEDS: FLUTICASONE PROPIONATE 50 MCG NASAL SPRAY 1 SPRAY NS (09:11)
[2022-08-23] MEDS: CLOPIDOGREL BISULFATE 75 MG TABLET PO (09:11)
[2022-08-23] MEDS: LISINOPRIL 10 MG TABLET 20 MG PO (09:11)
[2022-08-23] MEDS: CETIRIZINE HCL 10 MG TABLET PO (09:11)
[2022-08-23] MEDS: CARBAMAZEPINE 200 MG TABLET 400 MG PO (09:13)
--- NOTE | 2022-08-23 09:26 | P.DS_ITS ---
DS: Providers Provider Date of admission: 08/20/22 11:14 Primary care physician: NU HERNANDEZ Consults: 08/19/22 Consult to Loss Prevention Associate Routine Reason for consult:: Home health 08/19/22 17:37 Occupational Therapy Eval and Treat Routine Physical Therapy Eval and Treat Routine DS: Diagnosis Discharge Diagnosis (1) Acute renal failure: (2) Dehydration: (3) Generalized weakness: (4) Hypertension: (5) Paroxysmal atrial fibrillation: (6) COPD (chronic obstructive pulmonary disease): Plan Patient was admitted with significant weakness.? Hypotension.? Hypokalemia.? Acute kidney injury.? Although symptoms are overall again improved today.? When he tried ambulating with physical therapy had a near syncopal episode.? We will maintain current treatment plan as overall he is better.? When maintain patient as an inpatient status.? may need rehab - eval by PT recommended rehab DS: Summary Hospital Course Hospital Course: Pt admited with increawsing weakness, dehydration, near syncope - Hydrated the pt, weakness and near syncope persisted, recommended short rehab stay. Cleared for transfer to rehab, meds see list - follow up with [facility] at [place] from [facility] Status at Discharge Functional status at discharge: uses cane/walker Time Spent with Patient Time attestation: Total time spent providing and/or coordinating discharge services: Exam Constitutional Vital Signs, click to edit/add: Last Vital Signs Temp 98.6 F 08/23/22 04:09 Pulse 75 08/23/22 04:09 Resp 18 08/23/22 04:09 BP 169/93 H 08/23/22 04:09 Pulse Ox 92 L 08/23/22 04:09 O2 Del Method Room Air 08/23/22 04:09 Chest Common normals: inspection of chest normal Respiratory Common normals: normal respiratory effort and no retractions Cardio Common normals: no JVD, regular rate and regular rhythm GI Common normals: Normal to inspection, nondistended, normoactive bowel sounds present Neuro Common normals: oriented x3 and CN's II-XII intact bilaterally DS: Data Data Completed and Pending Labs on day of discharge: Labs from last 24 hours 08/23/22 08/22/22 08/22/22 07:34 20:37 16:54 POC Glucose 140 H 147 H 212 H 08/22/22 11:34 POC Glucose 162 H Discharge Plan Discharge Disposition: er SNF Condition: Good Discharge Medications: Continued atorvastatin 40 mg tablet 40 mg PO DAILY baclofen 10 mg tablet 10 mg PO TID carbamazepine 400 mg tablet extended release 12 hr 400 mg PO Q12H clopidogrel 75 mg tablet 75 mg PO DAILY diazepam 5 mg tablet 5 mg PO Q6H duloxetine 60 mg capsule,delayed release(DR/EC) 60 mg PO DAILY levalbuterol tartrate 45 mcg/actuation HFA aerosol inhaler 2 puff INHALATION Q6H lisinopril 10 mg tablet 10 mg PO DAILY montelukast 10 mg tablet 10 mg PO DAILY pregabalin 100 mg capsule 100 mg PO Q12H terazosin 2 mg capsule 2 mg PO DAILY albuterol sulfate 90 mcg/actuation HFA aerosol inhaler 1 inh INHALATION Q4H PRN (Reason: shortness of breath or wheezing) fluticasone propionate 50 mcg/actuation spray,suspension 1 spray INTRANASAL DAILY loratadine 10 mg PO DAILY magnesium hydroxide 400 mg/5 mL suspension 30 ml PO DAILY PRN (Reason: constipation) omeprazole 40 mg capsule,delayed release(DR/EC) 40 mg PO DAILY oxycodone 5 mg capsule 5 mg PO Q8H PRN (Reason: pain) verapamil 240 mg tablet extended release 240 mg PO DAILY Discontinued furosemide 40 mg tablet 40 mg PO DAILY 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 Forms: Portal Instructions Discharge Date/Time: 08/23/22 16:15
--- NOTE | 2022-08-23 09:32 | CM.NOTE ---
Rounds made with Dr. Fair, discussed with pt about skilled rehab. Pt in agreement for skilled rehab and wishes are to go to [place], will see how pt does with PT today. Notified SW of pt's wishes.
--- NOTE | 2022-08-23 09:38 | CM.NOTE ---
Important Message From Medicare discussed with pt, pt verbalizes understanding and signs paper. Original given to pt and copy placed on pt's chart.
--- NOTE | 2022-08-23 10:39 | SWNOTE1 ---
SW spoke with case management and pt/family would like him to go to rehab at SNF. SW spoke with pt and he is agreeable. Pt would like [facility] first choice and [facility] as second choice. SW sent referral. SW called and spoke with daughter and she is in agreement with plan.
[2022-08-23 11:25] VITALS: PULSE 88; O2SAT 96
[2022-08-23] MEDS: LEVALBUTEROL HCL 1.25 MG/3 ML VIAL NEB IH (11:25)
[2022-08-23 11:26] LABS: Glucometer 139 mg/dL (74-106)
--- NOTE | 2022-08-23 12:54 | SWNOTE1 ---
HEBERT received a call from [facility] and they are able to accept. HEBERT sent message to doctor to make sure pt is medically stable for dc.
--- NOTE | 2022-08-23 14:00 | SWNOTE1 ---
Pt is medically stable for dc. SW sent dc orders to [facility] and completed HENS. SW spoke with daughter, Kathy, and she is able to transport. She gets off work at 3:30 and will be here after to transport. HEBERT notified nursing, pt, and [facility] of time. Pt is going to [facility] skilled.
[2022-08-23 14:01] VITALS: BP 144/73; PULSE 79; RESP 18; TEMP 37.3; O2SAT 90
== END 2022-08-23 16:15 | DRG 684 ==
LOC: ER 12:32 → MS 12:39
PROVIDERS: Family Medicine; Admitting Provider Family Medicine; Emergency Provider Emergency Medicine; PCP Family Medicine; Visit Provider Family Medicine
DX: N17.9 Acute kidney failure, unspecified (principal); E86.0 Dehydration; R53.1 Weakness; I10 Essential (primary) hypertension; I48.0 Paroxysmal atrial fibrillation; J44.9 Chronic obstructive pulmonary disease, unspecified; E87.6 Hypokalemia; I95.9 Hypotension, unspecified; Z86.73 Personal history of transient ischemic attack (TIA), and cerebral infarction without residual deficits; W19.XXXA Unspecified fall, initial encounter; Z79.02 Long term (current) use of antithrombotics/antiplatelets; Z79.899 Other long term (current) drug therapy; Z91.041 Radiographic dye allergy status; Z80.9 Family history of malignant neoplasm, unspecified
CPT/HCPCS: 36415; 70450; 71045; 80048; 80053; 81003; 82948; 85025; 85610; 85730; 93005; 94640; 96360; 96361; 96372; 97110; 97163; 97165; 97530; 97535; 99285; G0378

== ENCOUNTER 2022-11-01 06:00 | Outpatient (OUT) | payer MEDICARE, OTHER, SELFPAY ==
--- NOTE | 2022-11-01 11:51 | RESP.RT ---
Patients heart rate 69 blood pressure 150/92
--- NOTE | 2022-11-01 12:45 | W.PM.PROCNOT ---
Date of procedure: 11/01/22 Procedure: 6-Minute Walk Test Indication: Hypoxemia Baseline data: Initial blood pressure: 143/82 Initial heart rate: 89 Initial oxygenation: SpO2 94% on room air. Initial Eliseo score: 2 MMRC: Not provided Procedure: A 6-Minute Walk Test was initiated according to standard protocol. The patient ambulated with the assistance of a walker for a total of 4 minutes with the lowest documented SpO2 measured at 92% on room air with a maximum heart rate of 74. The maximum Eliseo score was 5. The patient voiced he could not continue after 4 minutes and the study was aborted. Symptoms reported: Dizziness followed by severe dyspnea. The patient was seated, and the patient claimed that his vision blacked out. Vitals obtained at the end of testing included a blood pressure of 150/92 with a heart rate of 69. SpO2 was 94% on room air, with Eliseo score 5. Total number of stops: 1. Total distance walked was 122m, which was 36.6% of predicted walk distance. Impressions: No ambulatory desaturates noted. Decreased walk distance despite only ambulating for 4 minutes. Symptomatic with dyspnea and dizziness despite adequate saturations and normal heart rate on room air. Recommendations: No supplemental oxygen required. Clinical correlation required. Note: Due to the patient's severe dyspnea and episode of vision blacking out , he was transported to the ER for further examination.
== END 2022-11-01 16:06 | disposition home or self-care (01) ==
LOC: CARD 01-05 16:05
PROVIDERS: PCP Family Medicine; Visit Provider Internal Medicine
DX: R09.02 Hypoxemia (principal); Z53.8 Procedure and treatment not carried out for other reasons

== ENCOUNTER 2022-11-01 07:00 | Outpatient (OUT) | payer MEDICARE, OTHER, SELFPAY | END 2022-11-01 07:01 | disposition home or self-care (01) | LOC: CARD 01-05 16:03 | PROVIDERS: PCP Family Medicine; Visit Provider Internal Medicine | DX: Z53.9 Procedure and treatment not carried out, unspecified reason (principal) ==

== ENCOUNTER 2022-11-01 11:24 | Emergency (ER) | payer MEDICARE, OTHER, SELFPAY ==
[2022-11-01 11:33] VITALS: BP 164/82; PULSE 83; RESP 16; TEMP 36.9; O2SAT 92; BMI 33.9
--- NOTE | 2022-11-01 11:40 | XR_ITS ---
The [address] [address] Patient Name: KYLIE RUEDA MRN: [id number] date: 1950 Sex: M Assigned Patient Location: ER Current Patient Location: CARD Accession/Order Number: [id number] Exam Date: 11/01/2022 11:45 Report Date: 11/01/2022 12:07 At the request of: DAVON ORTIZ Procedure: XR chest 1V EXAM: XR chest 1V HISTORY: Shortness of breath. COMPARISON: 08/19/2022. TECHNIQUE: AP erect portable chest radiograph performed. FINDINGS: The trachea is midline. The cardiac mediastinal silhouette and hilar shadows are unremarkable. There is no consolidation or infiltrates. There is no pleural effusion or pulmonary vascular congestion. There is no pneumothorax. The bony structures are osteopenic. There is no acute osseous abnormality. Partially imaged spinal fixation hardware cervical spine. XR/XR chest 1V IMPRESSION: There is no acute cardiopulmonary process. Electronically authenticated by: ROSALIO GRIGGS Date: 11/01/2022 12:07
--- NOTE | 2022-11-01 11:40 | ECG_ITS ---
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
[2022-11-01 11:43] LABS: Glucometer 106 mg/dL (74-106)
[2022-11-01 11:51] LABS: Basophils Absolute Auto 0.1 10^3/uL (0.0-0.1); Eosinophils Absolute Auto 0.4 10^3/uL (0.0-0.7); Eosinophils Percent Auto 4.9 % (0.9-7.0); Hematocrit 34.1 % (42.0-54.0); Hemoglobin 11.4 g/dL (14.0-18.0); Immature Granulocytes Abs Auto 0.01 10^3/uL (0.00-0.03); Immature Granulocytes Pct Auto 0.1 % (0.0-0.5); Lymphocytes Absolute Auto 2.3 10^3/uL (1.2-3.8); Lymphocytes Percent Auto 32.7 % (20.5-60.0); Mean Corpuscular HGB Conc 33.4 g/dL (29.9-35.2); Mean Corpuscular Volume 89.7 fL (80.0-94.0); Mean Platelet Volume 9.1 fL (9.5-13.5); Monocytes Absolute Auto 0.7 10^3/uL (0.3-0.8); Monocytes Percent Auto 10.4 % (1.7-12.0); Neutrophils Absolute Auto 3.6 10^3/uL (1.4-6.5); Neutrophils Percent Auto 50.9 % (43.0-75.0); Platelet Count 256 10^3/uL (150-450); Red Cell Distribution Width 12.7 % (11.0-15.0); White Blood Count 7.1 10^3/uL (4.0-11.0)
--- NOTE | 2022-11-01 11:55 | ED.SYNCOPE1 ---
HPI - Syncope General Chief Complaint: Dizziness Stated Complaint: DIZZY Time Seen by Provider: 11/01/22 11:55 Source: patient Mode of arrival: Wheelchair Limitations: no limitations History of Present Illness HPI narrative: 72-year-old male presents for near syncopal episode. He was having an outpatient oxygen test just before coming into the emergency department to determine his need for home oxygen. He became dizzy and lightheaded and sat down in his vision started going dark. He didn't pass out completely. She feels a little bit short of breath now. No chest pain or palpitations. He states he had a heart catheterization told him everything was okay. No fever or productive cough recently. Related Data Home Medications Medication Instructions Recorded Confirmed albuterol sulfate 90 mcg/actuation 1 inh inhalation Q4H PRN shortness 08/19/22 08/19/22 aerosol inhaler of breath or wheezing atorvastatin 40 mg tablet 40 mg PO DAILY 08/19/22 08/19/22 baclofen 10 mg tablet 10 mg PO TID 08/19/22 08/19/22 carbamazepine 400 mg 400 mg PO Q12H 08/19/22 08/19/22 tablet,extended release,12 hr clopidogrel 75 mg tablet 75 mg PO DAILY 08/19/22 08/19/22 diazepam 5 mg tablet 5 mg PO Q6H anxiety 08/19/22 08/19/22 duloxetine 60 mg capsule,delayed 60 mg PO DAILY 08/19/22 08/19/22 release fluticasone propionate 50 1 spray intranasal DAILY 08/19/22 08/19/22 mcg/actuation nasal spray,suspension levalbuterol tartrate 45 2 puff inhalation Q6H 08/19/22 08/19/22 mcg/actuation aerosol inhaler lisinopril 10 mg tablet 10 mg PO DAILY 08/19/22 08/19/22 loratadine 10 mg PO DAILY 08/19/22 08/19/22 magnesium hydroxide 400 mg/5 mL 30 ml PO DAILY PRN constipation 08/19/22 08/19/22 oral suspension montelukast 10 mg tablet 10 mg PO DAILY 08/19/22 08/19/22 omeprazole 40 mg capsule,delayed 40 mg PO DAILY 08/19/22 08/19/22 release oxycodone 5 mg capsule 5 mg PO Q8H PRN pain 08/19/22 08/19/22 pregabalin 100 mg capsule 100 mg PO Q12H 08/19/22 08/19/22 terazosin 2 mg capsule 2 mg PO DAILY 08/19/22 08/19/22 verapamil 240 mg tablet,extended 240 mg PO DAILY 08/19/22 08/19/22 release Allergies Allergy/AdvReac Type Severity Reaction Status Date / Time contrast AdvReac Unknown Uncoded 08/19/22 11:04 Review of Systems ROS Narrative A ten point review of systems is negative except as noted above. [facility] Medical History (Updated 11/01/22 @ 13:52 by Arturo Álvarez MD) Surgical History (Updated 08/19/22 @ 14:33 by Sandra Brooks, RN) Family History (Updated 08/19/22 @ 14:16 by Sandra Brooks RN) Sister Family history of cancer Social History (Updated 08/19/22 @ 14:18 by Sandra Brooks RN) Within the past year, how often did you have a drink containing alcohol: never Score interpretation: A score less than 4 is consistent with normal alcohol consumption. Smoking status: Former smoker Non-prescribed substance use: denies use Little interest or pleasure in doing things: several days Feeling down, depressed, or hopeless: several days Feel stressed/tense/nervous/anxious/difficulty sleeping: to some extent Gender Identity: male Exam Narrative Exam Narrative: Nurses note and vital signs reviewed and patient is not hypoxic. General: The patient appears well and in no apparent distress. Patient is resting comfortably on cart. Skin: Warm, dry, no pallor noted. There is no rash noted. Head: Normocephalic, atraumatic Eye: Normal conjunctiva, no drainage Ears, Nose, Mouth, and Throat: oral mucosa is moist. Nares patent. Cardiovascular: Regular Rate and Rhythm Respiratory: Patient is in no distress, no accessory muscle use, lungs are clear to auscultation, no wheezing, rales or rhonchi Back: non-tender GI: Normal bowel sounds, no tenderness to palpation, no masses appreciated. No rebound, guarding, or rigidity noted. Musculoskeletal: The patient has no evidence of calf tenderness, symmetrical pulses noted bilaterally Neurological: A&O, normal speech Psychiatric: Cooperative Constitutional Vital Signs, click to edit/add: Last Vital Signs Temp 98.4 F 11/01/22 11:33 Pulse 83 11/01/22 11:33 Resp 16 11/01/22 11:33 BP 164/82 H 11/01/22 11:33 Pulse Ox 95 11/01/22 11:57 O2 Del Method Nasal Cannula 11/01/22 11:57 O2 Flow Rate 2 11/01/22 11:57 Course Vital Signs Vital signs: Vital Signs Temperature 98.4 F 11/01/22 11:33 Pulse Rate 83 11/01/22 11:33 Respiratory Rate 16 11/01/22 11:33 Blood Pressure 164/82 H 11/01/22 11:33 Pulse Oximetry 92 L 11/01/22 11:33 Oxygen Delivery Method Room Air 11/01/22 11:33 Temperature 98.4 F 11/01/22 11:33 Pulse Rate 83 11/01/22 11:33 Respiratory Rate 16 11/01/22 11:33 Blood Pressure 164/82 H 11/01/22 11:33 Pulse Oximetry 95 11/01/22 11:57 Oxygen Delivery Method Nasal Cannula 11/01/22 11:57 Oxygen Delivery Flow Rate 2 11/01/22 11:57 MDM - Syncope MDM Narrative Medical decision making narrative: the patient had a near syncopal event. He feels fine now and is asymptomatic. He's been ambulatory without symptoms and is able to be discharged home. Case discussed with Dr. Johnson. the patient has had no dysrhythmia here. Differential Diagnosis Differential diagnosis: Likely syncope due to orthostatic hypotension, vasovagal syncope and dehydration Lab Data Attestation: I reviewed the patient's lab results. Labs: Lab Results 11/01/22 11/01/22 Range/Units 11:40 11:43 WBC 7.1 (4.0-11.0) 10^3/uL RBC 3.80 L (4.70-6.10) 10^6/uL Hgb 11.4 L (14.0-18.0) g/dL Hct 34.1 L (42.0-54.0) % MCV 89.7 (80.0-94.0) fL MCH 30.0 (25.9-34.0) pg MCHC 33.4 (29.9-35.2) g/dL RDW 12.7 (11.0-15.0) % Plt Count 256 (150-450) 10^3/uL MPV 9.1 L (9.5-13.5) fL Neut % (Auto) 50.9 (43.0-75.0) % Lymph % (Auto) 32.7 (20.5-60.0) % [place] % (Auto) 10.4 (1.7-12.0) % Eos % (Auto) 4.9 (0.9-7.0) % Baso % (Auto) 1.0 (0.2-2.0) % Neut # (Auto) 3.6 (1.4-6.5) 10^3/uL Lymph # (Auto) 2.3 (1.2-3.8) 10^3/uL [place] # (Auto) 0.7 (0.3-0.8) 10^3/uL Eos # (Auto) 0.4 (0.0-0.7) 10^3/uL Baso # (Auto) 0.1 (0.0-0.1) 10^3/uL Abs Immat Gran (auto) 0.01 (0.00-0.03) 10^3/uL Imm/Tot Granulo (auto) 0.1 (0.0-0.5) % Sodium 137 (136-145) mmol/L Potassium 4.1 (3.5-5.1) mmol/L Chloride 100 (98-107) mmol/L Carbon Dioxide 28.1 (21.0-32.0) mmol/L Anion Gap 13.0 BUN 10.0 (7.0-18.0) mg/dL Creatinine 1.07 (0.70-1.30) mg/dL Est GFR ( Amer) >60 (>=60) Est GFR (Non-Af Amer) >60 (>=60) BUN/Creatinine Ratio 9.3 Glucose 102 (74-106) mg/dL Calcium 8.8 (8.5-10.1) mg/dL Total Bilirubin 0.2 (0.2-1.0) mg/dL AST 18 (15-37) U/L ALT 27 (16-63) U/L Alkaline Phosphatase 73 (46-116) U/L Troponin I High Sens 6.2 (4.0-76.1) pg/mL NT-Pro-B Natriuret Pep 165.0 (<=900.0) pg/mL Total Protein 6.9 (6.4-8.2) g/dL Albumin 3.3 L (3.4-5.0) g/dL Globulin 3.6 g/dL Albumin/Globulin Ratio 0.9 POC Glucose 106 (74-106) mg/dL Imaging Data Chest x-ray: Radiologist's impression: Procedure: XR chest 1V EXAM: XR chest 1V HISTORY: Shortness of breath. COMPARISON: 08/19/2022. TECHNIQUE: AP erect portable chest radiograph performed. FINDINGS: The trachea is midline. The cardiac mediastinal silhouette and hilar shadows are unremarkable. There is no consolidation or infiltrates. There is no pleural effusion or pulmonary vascular congestion. There is no pneumothorax. The bony structures are osteopenic. There is no acute osseous abnormality. Partially imaged spinal fixation hardware cervical spine. IMPRESSION: There is no acute cardiopulmonary process. Electronically authenticated by: ROSALIO GRIGGS Date: 11/01/2022 ECG Data Attestation: I personally reviewed and interpreted this ECG as follows: (EKG on my interpretation shows sinus rhythm with a rate of eighty-two) Discharge Plan Discharge Chief Complaint: Dizziness Clinical Impression: Near syncope Time of Disposition Decision: 13:52 Condition: Good Mode of Transportation: Private Vehicle Prescriptions / Home Meds: No Action atorvastatin 40 mg tablet 40 mg PO DAILY baclofen 10 mg tablet 10 mg PO TID carbamazepine 400 mg tablet extended release 12 hr 400 mg PO Q12H clopidogrel 75 mg tablet 75 mg PO DAILY diazepam 5 mg tablet 5 mg PO Q6H duloxetine 60 mg capsule,delayed release(DR/EC) 60 mg PO DAILY levalbuterol tartrate 45 mcg/actuation HFA aerosol inhaler 2 puff INHALATION Q6H lisinopril 10 mg tablet 10 mg PO DAILY montelukast 10 mg tablet 10 mg PO DAILY pregabalin 100 mg capsule 100 mg PO Q12H terazosin 2 mg capsule 2 mg PO DAILY albuterol sulfate 90 mcg/actuation HFA aerosol inhaler 1 inh INHALATION Q4H PRN (Reason: shortness of breath or wheezing) fluticasone propionate 50 mcg/actuation spray,suspension 1 spray INTRANASAL DAILY loratadine 10 mg PO DAILY magnesium hydroxide 400 mg/5 mL suspension 30 ml PO DAILY PRN (Reason: constipation) omeprazole 40 mg capsule,delayed release(DR/EC) 40 mg PO DAILY oxycodone 5 mg capsule 5 mg PO Q8H PRN (Reason: pain) verapamil 240 mg tablet extended release 240 mg PO DAILY Instructions: Near Syncope (ED) Stand Alone Forms: Portal Instructions Referrals: NU HERNANDEZ [Primary Care Provider] - 1 week
[2022-11-01 11:57] VITALS: O2SAT 95
--- NOTE | 2022-11-01 11:57 | PC.NURSE ---
patien t86% on room air. patient placed on 2 l Nc
[2022-11-01 12:09] LABS: Alanine Aminotransferase 27 U/L (16-63); Albumin Globulin Ratio 0.9; Albumin Level 3.3 g/dL (3.4-5.0); Alkaline Phosphatase 73 U/L (46-116); Aspartate Amino Transferase 18 U/L (15-37); BUN Creatinine Ratio 9.3; Bilirubin Total 0.2 mg/dL (0.2-1.0); Calcium 8.8 mg/dL (8.5-10.1); Carbon Dioxide 28.1 mmol/L (21.0-32.0); Chloride 100 mmol/L (98-107); Estimated GFR (African America >60 (>=60); Estimated GFR (Non-African Ame >60 (>=60); Globulin 3.6 g/dL; Glucose 102 mg/dL (74-106); Potassium 4.1 mmol/L (3.5-5.1); Sodium 137 mmol/L (136-145); Total Protein 6.9 g/dL (6.4-8.2)
[2022-11-01 12:15] LABS: Troponin I High Sensitivity 6.2 pg/mL (4.0-76.1)
== END 2022-11-01 14:28 | disposition home or self-care (01) ==
PROVIDERS: Emergency Provider Emergency Medicine; PCP Family Medicine
DX: R55 Syncope and collapse (principal); R06.02 Shortness of breath; Z79.899 Other long term (current) drug therapy; Z87.891 Personal history of nicotine dependence
CPT/HCPCS: 36415; 71045; 80053; 83880; 84484; 85025; 93005; 99285

== ENCOUNTER 2022-12-14 08:43 | Outpatient (OUT) | payer MEDICARE, OTHER, SELFPAY ==
[2022-12-14 08:51] LABS: Hemoglobin 11.9 g/dL (14.0-18.0)
[2022-12-14 10:03] LABS: Allen Test POSITIVE (POSITIVE); Oxygen Saturation ABG 90.9 %; PO2 ABG 60.2 mmHg (80.0-100.0); pH ABG 7.381 (7.350-7.450)
[2022-12-14 10:04] LABS: O2 Mode ROOM AIR; Puncture Site L RADIAL
[2022-12-14 10:10] LABS: ABG PCO2 50.7 mmHg (35.0-45.0)
--- NOTE | 2022-12-14 10:18 | RT_ITS ---
The [facility] Test Date: 2022-12-14 Pat Name: KYLIE RUEDA Department: Room: - Gender: Male Prison Guard: Angel Adkins RRT : 1950 Requested By: Parker Johnson Order Number: [id number] Reading MD: Parker Johnson Interpretive Statements Pulmonary function testing was completed according to ATS criteria. Findings were considered accurate and reproducible. Both pre- and post-bronchodilator values utilized for spirometry. Due to software limitations, no prior studies (if performed previously) are currently available for comparison. Spirometry (based on pre-bronchodilator values): -FEV1/FVC: Normal @ 75% -FEV1: Normal @ 105% -FVC: Normal @ 101% -There is no significant bronchodilator response. Lung volumes by plethysmography (based on pre-bronchodilator values): -RV: Normal @ 117% -TLC: Normal @ 107% Diffusion capacity: -DLCO: Mild reduction @ 75% Flow-volume loop: -Normal shape Impressions: -Essentially normal spirometry without a bronchodilator response, normal lung volumes, and mild diffusion impairment. This pattern can be seen in, but not restricted to, cardiopulmonary vascular disorders, early interstitial lung disease, and early emphysema. Clinical correlation required. Electronically Signed On 12-14-2022 11:09:51 EDT by Parker Johnson
[2022-12-14] MEDS: ALBUTEROL SULFATE 2.5 MG/3 ML VIAL NEB IH (10:20)
== END 2022-12-14 08:44 | disposition home or self-care (01) ==
LOC: CARD 08:43
PROVIDERS: PCP Family Medicine; Visit Provider Internal Medicine
DX: R09.02 Hypoxemia (principal); J44.9 Chronic obstructive pulmonary disease, unspecified
CPT/HCPCS: 36415; 36600; 82805; 85018; 94060; 94726; 94729

== ENCOUNTER 2023-03-14 07:55 | Inpatient (IN) | payer MEDICARE, OTHER, SELFPAY ==
[2023-03-14] VITALS (30 sets, daily range): BP systolic 95–150; BP diastolic 49–93; PULSE 54–78; RESP 11–25; TEMP 36.6–36.9; O2SAT 85–99; BMI 32.5; BMI 33.3
--- OUTSIDE RECORDS SUMMARY | 2023-03-14 08:02 | XMS_ITS | CCD ---
Author Name Unknown Address [address] [facility] [address] [place] [address] Organization [facility] Care Team Providers Care Software Security Consultant Name Role Phone CARLOS EVANS Admitting Unavailable CARLOS EVANS Attending Unavailable CAST, JENNY Referring Unavailable CAST, JENNY Primary Care Unavailable CARLOS EVANS Admitting Unavailable CARLOS EVANS Attending Unavailable CAST, JENNY Referring Unavailable CAST, JENNY Primary Care Unavailable Maira Shah Admitting Unavailable Maira Shah Attending Unavailable CAST, JENNY Referring Unavailable CAST, JENNY Primary Care Unavailable TONJA HERNANDEZ Admitting Unavailable TONJA HERNANDEZ Attending Unavailable CAST, JENNY Referring Unavailable CAST, JENNY Primary Care Unavailable JAYESH LAZO Admitting Unavailable JAYESH LAZO Attending Unavailable CAST, JENNY Referring Unavailable CAST, JENNY Primary Care Unavailable CARLOS EVANS Admitting Unavailable CARLOS EVANS Attending Unavailable CAST, JENNY Referring Unavailable CAST, JENNY Primary Care Unavailable CARLOS EVANS Admitting Unavailable CARLOS EVANS Attending Unavailable CARLOS EVANS Referring Unavailable CAST, JENNY Primary Care Unavailable EBRAHEIM, KRISHNA Admitting Unavailable EBRAHEIM, KRISHNA Attending Unavailable CAST, JENNY Referring Unavailable CAST, JENNY Primary Care Unavailable OR Procedure Practitioner Unavailab SHELLI AmosIL Surgeon Unavailable OR Procedure Practitioner Unavailab JOANNA Rose Surgeon Unavailable HEMA VILCHIS Admitting Unavailable HEMA VILCHIS Attending Unavailable CAST, JENNY Referring Unavailable CAST, JENNY Primary Care Unavailable Cast, Jenny A Primary Care Provider [phone] AZUCENA EVANS Referring Unavailable CAST, JENNY A Primary Care Unavailable AZUCENA EVANS Referring Unavailable CAST, JENNY A Primary Care Unavailable JENNY CAST Primary Care Unavailable AZUCENA EVANS Referring Unavailable JENNY CAST Primary Care Physician Cintia Alves Attending Unavailable Alves, Cintia L Attending Unavailable Alves, Cintia L Attending Unavailable Alves, Cintia L Attending Unavailable Alves, Cintia L Attending Unavailable Alves, Cintia L Referring Unavailable Alves, Cintia L Admitting Unavailable Alves, Cintia L Attending Unavailable Alves, Cintia L Admitting Unavailable Alves, Cintia L Attending Unavailable Alves, Cintia L Referring Unavailable SAMSA, VERNELL P Admitting Unavailable SAMSA, VERNELL P Attending Unavailable Alves, Cintia L Admitting Unavailable Alves, Cintia L Attending Unavailable Alves, Cintia L Referring Unavailable LETTY, DR BECK Waddell Admitting Unavailabl e DAVID, DR JENNY Young Primary Care Unavailable LETTY, DR BECK Waddell Attending Unavailabl e LETTY, DR BECK Waddell Consulting Unavailabl e LALITO SHOOK Consulting Unavaila beau CAST, DR JENNY Young Primary Care Unavailable BRAYDEN ., SELENA ADAMS Consulting Unavailabl e DAVON ORTIZ Attending Unavailable DAVON ORTIZ Admitting Unavailable JESSA ADAM Consulting Unavailable ZIEBER, DR KAY Baltazar Consulting Unavailable DAVID, DR JENNY Young Primary Care Unavailable SAMSA ., VERNELL Admitting Unavailable SAMSA ., VERNELL Attending Unavailable SAMSA ., VERNELL Consulting Unavailable SAMSA ., VERNELL Attending Unavailable SAMSA ., VERNELL Consulting Unavailable DAVID, DR JENNY Young Primary Care Unavailable SAMSA ., VERNELL Admitting Unavailable SHAWN Banuelos, DR CINTIA eHrnandez Admitting Unavaila beau CAST, DR JENNY Young Primary Care Unavailable SHAWN Banuelos, DR CINTIA Hernandez Attending Unavailmaria d Banuelos, DR CINTIA Hernandez Consulting Unavaila JESSA Sena Consulting Unavailable JENNY CAST Referring Unavailable JENNY CAST Primary Care Unavailable Allergies Allergy Classification Reported Allergen(s) Allergy Type Date of Onset Reaction(s) Facility (3 sources) Barium-Containin g Compounds Propensity to adverse reactions to drug 0 [place] (5 sources) Contrast media; Translations: [contrast media (iodine-based)] Drug allergy Anaphylaxis (disorder) [facility] (1 source) Iodine (And Iodine Containting Drugs) Drug allergy (disorder) [facility] (1 source) Pneumovax 23 Drug allergy (disorder) 5 [facility] (1 source) Sulfonamides (Antibiotic); Translations: [SULFA (SULFONAMIDE ANTIBIOTICS)] Propensity to adverse reactions to drug (disorder) 0 [facility] (1 source) IODINATED CONTRAST MEDIA; Translations: [IODINATED CONTRAST MEDIA] Propensity to adverse reactions to drug (disorder) 8 [facility] Medications Current Medications Medication Drug Class(es) Dates Sig (Normalized) Sig (Original) Acetaminophen (3 sources) Start: 12-03-2019 acetaminophen (TYLENOL) tablet 650 mg take 1 tablet by caio th every six hours as needed for pain acetaminophen (TYLENOL) 500 MG tablet Ta ke 500 mg by mouth every 6 hours as needed for Pain 0 Suspended acetaminophen 325 mg / oxyCODONE hydrochloride 5 mg oral tablet (4 sources) Opioid Agonist Start: 05-21-2021 take 1 tablet by mouth every six hours Percocet 5 mg-325 mg oral tablet 1 tab(s), Oral, q6hr Pain 8-10, 210 tab(s), Refill(s) 0, [facility] [facility] [address] [address], 175.5, cm, 05/12/21 9:10:00 EDT, Height/Length Dosing, 107.6, kg, 05/12/21 9:10:00 EDT, Weight Dosing Start Date: 05/21/21 Status: Ordered End: 12-04-2019 take 1 tablet by mouth every eight hours oxyCODONE-acetaminophen (PERCOCET) 5-325 MG per tablet Take 1 tablet by mouth every 8 hours. 0 12/04/2019 Discontinued (Stop Taking at Discharge) Albuterol (Eqv-ProAir HFA) 90 mcg/inh inhalation aerosol (4 sources) Start: 04-28-2021 take 1 puff(s) by inhalation every six hours as needed for wheezing Albuterol (Eqv-ProAir HFA) 90 mcg/inh inhalation aerosol 1 puff(s), Inhalation, q6hr as needed for wheezing, Refill(s) 0 Start Date: 04/28/21 Status: Ordered albuterol 0.833 mg/ml / ipratropium bromide 0.167 mg/ml inhalant solution (4 sources) Anticholinergic, beta2-Adrenergic Agonist Start: 12-03-2019 take 3 mL by inhalation every four hours as needed 3 mL (1 vial), Inhalation, EVERY 4 HOURS PRN, Shortness of Breath, Starting Tue12/03/19 at 1717 atorvastatin 40 mg oral tablet (8 sources) HMG-CoA Reductase Inhibitor Start: 02-24-2021 take 1 tablet by mouth once daily atorvastatin 40 mg Tab 40 mg = 1 tab(s), Oral, Daily, Refills(s) 0, High cholesterol Start Date: 02/24/21 Status: Ordered Start: 12-03-2019 take 40 mg by mouth once daily 40 mg, Oral, DAILY, First dose on Tue12/03/19 at 1745 baclofen 10 mg oral tablet (8 sources) gamma-Aminobutyric Acid-ergic Agonist Start: 02-24-2021 take 1 tablet by mouth three times daily baclofen 10 mg Tab 10 mg = 1 tab(s), Oral, TID, Refills(s) 0, Other (see comment) Start Date: 02/24/21 Status: Ordered Start: 12-03-2019 take 10 mg by mouth three times daily 10 mg, Oral, 3 TIMES DAILY, First dose on Tue12/03/19 at 2100 calcium chloride 0.0014 meq/ml / potassium chloride 0.004 meq/ml / sodium chloride 0.103 meq/ml / sodium lactate 0.028 meq/ml injectable solution (1 source) Start: 12-03-2019 lactated ringe rs infusion carBAMazepine 100 mg chewable tablet (8 sources) Mood Stabilizer Start: 02-24-2021 carBAMazepine 100 mg Chew Tab 100 mg = 1 tab(s), Chewed, BID, Refills(s) 0 Start Date: 02/24/21 Status: Ordered Start: 12-03-2019 take 400 mg by mouth twice daily 400 mg, Oral, 2 TIMES DAILY, First dose on Tue12/03/19 at 2100 Do not crush or break. take 1 tablet by caio th twice daily carBAMazepine (TEGRETOL XR) 400 MG extended release tablet Take 400 mg by mouth 2 times daily 0 Suspended ceFAZolin (ANCEF) 1 g in dextrose 5 % 50 mL IVPB (mini-bag) (1 source) Start: 12-03-2019 ceFAZolin (ANC EF) 1 g in dextrose 5 % 50 mL IVPB (mini-bag) clopidogrel 75 mg oral tablet (6 sources) P2Y12 Platelet Inhibitor Start: 02-24-2021 take 75 mg by mouth once daily clopidogrel 75 mg, Oral, Daily, Refills(s) 0, Blood Thinner Start Date: 02/24/21 Status: Ordered take 1 tablet by mouth once ramin y clopidogrel (PLAVIX) 75 MG tablet Take 75 mg by mouth daily 0 Suspended diazePAM 5 mg oral tablet (8 sources) Benzodiazepine Start: 02-24-2021 take 1 tablet by mouth four times daily diazepam 5 mg Tab 5 mg = 1 tab(s), Oral, QID, Refills(s) 0, Anxiety Start Date: 02/24/21 Status: Ordered Start: 12-03-2019 take 5 mg by mouth f our times daily 5 mg, Oral, 4 TIMES DAILY, First dose on Tue12/03/19 at 2100 doxazosin 1 mg oral tablet (1 source) alpha-Adrenergic Laura Start: 12-03-2019 take 2 mg by mouth once daily 2 mg, Oral, DAILY, First dose on Tue12/03/19 at 1745 Substituted for Terazosin (HYTRIN). doxycycline hyclate 100 mg oral tablet (4 sources) Tetracycline-class Drug Start: 02-24-2021 take 100 mg by mouth twice daily doxycycline 100 mg, Oral, BID, for 10 days for sinuses, Refills(s) 0, Infection or prophylaxis for antibiotics Start Date: 02/24/21 Status: Ordered DULoxetine 30 mg delayed release oral capsule (6 sources) Serotonin and Norepinephrine Reuptake Inhibitor Start: 02-24-2021 take 1 capsule by mouth once daily duloxetine 30 mg Cap-DR 30 mg, Oral, Daily, Refills(s) 0, Depression Start Date: 02/24/21 Status: Ordered Start: 12-03-2019 take 1 capsule by [facility] once daily 30 mg, Oral, DAILY, First dose on Tue12/03/19 at 1745 Do not crush or break. May add contents of capsule to apple juice or apple sauce, but not chocolate. duloxetine 30 mg Cap-DR (2 sources) Start: 02-24-2021 take 1 capsule by mouth once daily duloxetine 30 mg Cap-DR 30 mg, Oral, Daily, Refills(s) 0, Depression Start Date: 02/24/21 Status: Ordered famotidine 20 mg oral tablet (4 sources) Histamine-2 Receptor Antagonist Start: 02-24-2021 take 1 tablet by mouth twice daily famotidine 20 mg Tab 20 mg = 1 tab(s), Oral, BID, Refills(s) 0, Control of stomach acid Start Date: 02/24/21 Status: Ordered fluticasone (8 sources) Corticosteroid Start: 02-24-2021 take 50 ug by inhalation at bedtime fluticasone propionate 50 mcg, Inhalation, Bedtime, Refills(s) 0, Allergy symptoms Start Date: 02/24/21 Status: Ordered Start: 12-03-2019 take 1 spray(s) nasa l route once daily 1 spray, Each Nostril, DAILY, First dose on 12/03/19 at 1745 take 1 spray(s) nasa l route once daily fluticasone (FLONASE) 50 MCG/ACT nasal spray 1 spray by Each Nostril route daily 0 Suspended furosemide 20 mg oral tablet (4 sources) Loop Diuretic Start: 02-24-2021 take 1 tablet by mouth once daily furosemide 20 mg Tab 20 mg = 1 tab(s), Oral, Daily, Refills(s) 0, diuretic/water pill Start Date: 02/24/21 Status: Ordered 0.5 ml HYDROmorphone hydrochloride 1 mg/ml prefilled syringe (1 source) Opioid Agonist Start: 12-03-2019 HYDROmorphone HCl PF (DILAUDID) injection 1 mg lisinopril 10 mg oral tablet (4 sources) Angiotensin Converting Enzyme Inhibitor Start: 05-12-2021 take 1 tablet by mouth once daily as needed lisinopril 10 mg Tab 10 mg = 1 tab(s), Oral, Daily, PRN Other (see comment), Refills(s) 0 Start Date: 05/12/21 Status: Ordered loratadine 10 mg oral tablet (7 sources) Start: 02-24-2021 take 10 mg by mouth once daily Claritin 10 mg, Oral, Daily, Refills(s) 0, Allergy symptoms Start Date: 02/24/21 Status: Ordered take 1 capsule by mouth once skyler ly loratadine (CLARITIN) 10 MG capsule Take 10 mg by mouth daily 0 Suspended 100 ml magnesium sulfate 10 mg/ml injection (1 source) Start: 12-03-2019 magnesium sulf ate 1 g in dextrose 5% 100 mL IVPB montelukast 10 mg oral tablet (8 sources) Leukotriene Receptor Antagonist Start: 04-28-2021 take 10 mg by mouth once daily montelukast 10 mg, Oral, Daily, Refills(s) 0, Allergy symptoms Start Date: 04/28/21 Status: Ordered Start: 12-03-2019 take 10 mg by mouth once daily 10 mg, Oral, NIGHTLY, First dose on Tue12/03/19 at 2100 24 hr nicotine 0.875 mg/hr transdermal system (1 source) Cholinergic Nicotinic Agonist Start: 12-03-2019 nicotine (NICODERM CQ) 21 MG/24HR 1 patch omeprazole 40 mg delayed release oral capsule (5 sources) Proton Pump Inhibitor Start: 04-28-2021 omeprazo le 40 mg Cap-DR 40 mg = 1 cap(s), Oral, Daily, Refills(s) 0, Control of stomach acid Start Date: 04/28/21 Status: Ordered take 1 capsule by [facility] once daily as needed omeprazole (PRILOSEC) 40 MG delayed rele ase capsule Take 40 mg by mouth daily as needed 0 Suspended omeprazole 40 mg Cap-DR (2 sources) Start: 04-28-2021 omeprazole 40 mg Cap-DR 40 mg = 1 cap(s), Oral, Daily, Refills(s) 0, Control of stomach acid Start Date: 04/28/21 Status: Ordered oxyCODONE hydrochloride 5 mg oral capsule (5 sources) Opioid Agonist Start: 02-24-2021 take 1 capsule by mouth three times daily oxyCODONE 5 mg Cap 5 mg = 1 cap(s), Oral, TID, Refills(s) 0, Pain Start Date: 02/24/21 Status: Ordered Start: 12-03-2019 oxyCODONE (AMARI ICODONE) immediate release tablet 10 mg polyethylene glycol 3350 [id number] mg powder for oral solution (1 source) Osmotic Laxative Start: 12-03-2019 polyethylene glycol (GLYCOLAX) packet 17 g Potassium Chloride (1 source) Start: 12-03-2019 potassium chlo ride (KLOR-CON M) extended release tablet 40 mEq pregabalin 100 mg oral capsule (8 sources) Start: 02-24-2021 take 100 mg by mouth twice daily Lyrica 100 mg, Oral, BID, Refills(s) 0, Pain Start Date: 02/24/21 Status: Ordered Start: 12-03-2019 take 100 mg by mouth twice skyler ly 100 mg, Oral, 2 TIMES DAILY, First dose on Tue12/03/19 at 2100 Promethazine (1 source) Phenothiazine Start: 12-03-2019 promethazine (PHENERGAN) tablet 12.5 mg 3 ml sodium chloride 9 mg/ml injection (2 sources) Start: 12-03-2019 sodium chloride flush 0.9 % injection 10 mL Spiriva Respimat 60 ACT 2.5 mcg/inh inhalation aerosol (2 sources) Start: 05-12-2021 take 2 puff(s) by inhalation once daily as needed for wheezing Spiriva Respimat 60 ACT 2.5 mcg/inh inhalation aerosol = 2 puff(s), Inhalation, Daily, PRN Shortness of breath or wheezing, Refills(s) 0 Start Date: 05/12/21 Status: Ordered spironolactone 25 mg oral tablet (8 sources) Aldosterone Antagonist Start: 04-28-2021 take 1 tablet by mouth once daily spironolactone 25 mg Tab 25 mg = 1 tab(s), Oral, Daily, Refills(s) 0, diuretic/water pill Start Date: 04/28/21 Status: Ordered Start: 12-03-2019 take 25 mg by mouth once daily 25 mg, Oral, DAILY, First dose on Tue12/03/19 at 1745 terazosin 5 mg oral capsule (6 sources) alpha-Adrenergic Laura Start: 04-28-2021 take 1 capsule by mouth once daily at bedtime terazosin 5 mg Cap 5 mg = 1 cap(s), Oral, Once a day (at bedtime), # 30 cap(s), Refills(s) 6, Pharmacy: [address], 181, cm, 04/28/21 12:55:00 EDT, Height/Length Dosing, 115, kg, 04/28/21 12:55:00 EDT, Weight Dosing Start Date: 04/28/21 Status: Ordered take 1 capsule by mouth once skyler ly terazosin (HYTRIN) 2 MG capsule Take 2 mg by mouth nightly 0 Suspended 60 actuat tiotropium 0.0025 mg/actuat inhalation spray (2 sources) Anticholinergic Start: 05-12-2021 take 2 puff(s) by inhalation once daily as needed for wheezing Spiriva Respimat 60 ACT 2.5 mcg/inh inhalation aerosol = 2 puff(s), Inhalation, Daily, PRN Shortness of breath or wheezing, Refills(s) 0 Start Date: 05/12/21 Status: Ordered verapamil hydrochloride 240 mg extended release oral tablet (8 sources) Calcium Channel Laura Start: 04-28-2021 take 1 tablet by mouth once daily in the morning verapamil 240 mg ER Tab 240 mg = 1 tab(s), Oral, qAM, Refills(s) 0, Other (see comment) Start Date: 04/28/21 Status: Ordered Start: 12-03-2019 take 240 mg by mouth once ramin y 240 mg, Oral, NIGHTLY, First dose on 12/03/19 at 2100 Do not crush or break. take 1 capsule by mo uth once daily verapamil (VERELAN) 240 MG extended release capsule Take 240 mg by mouth nightly 0 Suspended Completed/Discontinued Medications Medication Drug Class(es) Dates Sig (Normalized) Sig (Original) Magnesium Hydroxide (3 sources) Magnesium Hydrox nohelia (MILK OF MAGNESIA PO) Take by mouth every other day 0 Suspended Magnesium Hydrox nohelia (MILK OF MAGNESIA PO) Take by mouth every other day 0 Active predniSONE 20 mg oral tablet (3 sources) predniSONE (DELT ASONE) 20 MG tablet Take 20 mg by mouth as needed 0 Suspended Problems Active Problems Problem Classification Problem Date Documented Date Episodic/Chronic Abdominal hernia (1 source) Diaphragmatic hernia without obstruction or gangrene; Translations: [DIAPH HERNIA W/O OBST/GANGRENE] Onset: 04-20-2022 Episodic Acute cerebrovascular disease (4 sources) Cerebrovascular accident 05-12-2021 Chronic Anxiety disorders (1 source) Anxiety disorder, unspecified; Translations: [ANXIETY DISORDER UNSPECIFIED] Onset: 04-20-2022 Chronic Calculus of urinary tract (1 source) Personal history of urinary calculi; Translations: [PERSONAL HISTORY OF URINARY CALCULI] Onset: 04-20-2022 Episodic Cardiac dysrhythmias (1 source) Unspecified atrial fibrillation; Translations: [UNSPECIFIED ATRIAL FIBRILLATION] Onset: 04-20-2022 Chronic Chronic obstructive pulmonary disease and bronchiectasis (3 sources) Chronic obstructive lung disease; Translations: [COPD (chronic obstructive pulmonary disease)] 12-03-2019 Chronic Disorders of lipid metabolism (5 sources) Hypercholesterolemia; Translations: [Pure hypercholesterolemia, unspecified] Onset: 04-20-2022 05-12-2021 Chronic Disorders of lipid metabolism (1 source) Pure hypercholesterolemia, unspecified; Translations: [PURE HYPERCHOLESTEROLEMIA, UNSPECIFIED] Onset: 11-18-2017 E Codes: Fall (1 source) Fall from bed, initial encounter; Translations: [FALL FROM BED INITIAL ENCOUNTER] Onset: 04-20-2022 Episodic Esophageal disorders (6 sources) Gastro-esophageal reflux disease without esophagitis; Translations: [Gastroesophageal reflux disease] Onset: 11-18-2017 05-12-2021 Chronic Essential hypertension (2 sources) Essential (primary) hypertension; Translations: [ESSENTIAL (PRIMARY) HYPERTENSION] Onset: 11-18-2017 Chronic External cause codes: Fall (2 sources) Unspecified fall, subsequent encounter; Translations: [Unspecified fall, initial encounter] Onset: 11-18-2017 Fracture of upper limb (9 sources) Other intraarticular fracture of lower end of right radius, initial encounter for closed fracture; Translations: [Alves's fracture of right radius, subsequent encounter for closed fracture with routine healing] Onset: 11-18-2017 Episodic Genitourinary symptoms and ill-defined conditions (7 sources) Urge incontinence of urine; Translations: [Urge incontinence] Onset: 05-20-2021 02-24-2021 Chronic Hyperplasia of prostate (9 sources) Benign prostatic hyperplasia without lower urinary tract symptoms; Translations: [Benign prostatic hypertrophy with outflow obstruction] Onset: 11-18-2017 02-24-2021 Chronic Mood disorders (1 source) Mood disorders; Translations: [DEPRESSION UNSPECIFIED] Onset: 04-20-2022 Osteoarthritis (2 sources) Polyosteoarthritis, unspecified; Translations: [Unspecified osteoarthritis, unspecified site] Onset: 01-26-2018 Chronic Osteoporosis (1 source) Age-related osteoporosis without current pathological fracture; Translations: [AGE-RELATED OSTEOPOROSIS W/O CURRENT PATHOLOGICAL FRACTURE] Onset: 01-26-2018 Chronic Other aftercare (1 source) 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 terminal (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) drug therapy; Translations: [OTH HALFWAY CURRENT DRUG THERAPY] Onset: 04-20-2022 Episodic Other aftercare (1 source) custodial (current) use of antithrombotics/antip latelets; Translations: [HALFWAY ANTITHROMBOT/ANTIPLAT LETS] Onset: 04-20-2022 Episodic Other aftercare (1 source) supervisor intermediates (current) use of aspirin; Translations: [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 OF ASPIRIN] Onset: 04-20-2022 Episodic Other circulatory disease (1 source) Personal history of transient ischemic attack (TIA), and cerebral infarction without residual deficits; Translations: [PERS HX TIA AND CI NO RESID DEFICIT] Onset: 03-01-2022 Episodic Other connective tissue disease (1 source) Arthrodesis status; Translations: [ARTHRODESIS STATUS] Onset: 04-20-2022 Episodic Other diseases of kidney and ureters (1 source) Urinary tract obstruction; Translations: [Other obstructive and reflux uropathy] Onset: 06-09-2021 Episodic Other hereditary and degenerative nervous system conditions (1 source) Restless legs syndrome; Translations: [RESTLESS LEGS SYNDROME] Onset: 04-20-2022 Chronic Other hereditary and degenerative nervous system conditions (1 source) Blepharospasm; 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] Onset: 09-27-2019 Chronic Other male genital disorders (1 source) Secondary erectile dysfunction; Translations: [Erectile dysfunction due to diseases classified elsewhere] Onset: 08-18-2021 Chronic Other male genital disorders (6 sources) Phimosis; Translations: [Phimosis] Onset: 06-09-2021 02-24-2021 Episodic Other nervous system disorders (1 source) Polyneuropathy, unspecified; Translations: [POLYNEUROPATHY, UNSPECIFIED] Onset: 11-18-2017 Chronic Other nervous system disorders (3 sources) Postoperative pain ; Translations: [Post-op pain] Onset: 12-03-2019 12-03-2019 Episodic Other non-traumatic joint disorders (3 sources) Pain in left knee; Translations: [PAIN IN LEFT KNEE] Onset: 04-19-2022 Episodic Other screening for suspected conditions (not mental disorders or infectious disease) (4 sources) Abnormal findings on diagnostic imaging of other specified body structures; Translations: [ABNORML FIND DX IMG OTH BODY STRUC] Onset: 11-09-2021 Chronic Pulmonary heart disease (3 sources) Pulmonary hypertension, unspecified; Translations: [Mild pulmonary hypertension] 12-03-2019 Residual codes; unclassified (1 source) Presence of other specified functional implants; Translations: [PRESENCE OF OTHER SPECIFIED FUNCTIONAL IMPLANTS] Onset: 11-18-2017 Chronic Residual codes; unclassified (1 source) Sleep apnea, unspecified; Translations: [SLEEP APNEA UNSPECIFIED] Onset: 04-20-2022 Chronic Residual codes; unclassified (4 sources) Insomnia 05-12-2021 Episodic Residual codes; unclassified (3 sources) Disorientation, unspecified; Translations: [DISORIENTATION UNSPECIFIED] Onset: 01-24-2022 Episodic Screening and history of mental health and substance abuse codes (2 sources) Personal history of nicotine dependence; Translations: [PERSONAL HISTORY OF NICOTINE DEPENDENCE] Onset: 11-18-2017 Episodic Sprains and strains (2 sources) Sprain of unspecified site of left knee, initial encounter; Translations: [Sprain of unspecified ligament of left ankle, initial encounter] Onset: 04-20-2022 Episodic Superficial injury; contusion (1 source) Contusion of left upper arm, initial encounter; Translations: [CONTUSION LEFT UPPER ARM INITIAL] Onset: 04-20-2022 Episodic Transient cerebral ischemia (5 sources) Amaurosis fugax; Translations: [Transient cerebral ischemic attack, unspecified] Onset: 05-27-2017 Chronic Unclassified (2 sources) DX Onset: 12-29-2017 Unclassified (3 sources) Patient encounter status; Translations: [Pain management] Onset: 12-03-2019 12-03-2019 Unclassified (3 sources) Injury of back of trunk 05-21-2021 Past or Other Problems Problem Classification Problem Date Documented Da te Episodic/Chronic Other aftercare (2 sources) custodial (current) use of anticoagulants; Translations: [HALFWAY (CURRENT) USE OF ANTICOAGULANTS] Onset: 11-15-2017 Episodic Other aftercare (1 source) Encounter for therapeutic drug level monitoring; Translations: [ENCOUNTER FOR THERAPEUTIC DRUG LEVEL MONITORING] Onset: 11-15-2017 Episodic Other connective tissue disease (1 source) Other specified soft tissue disorders; Translations: [OTHER SPECIFIED SOFT TISSUE DISORDERS] Onset: 12-01-2017 Episodic Other lower respiratory disease (5 sources) Shortness of breath; Translations: [SHORTNESS OF BREATH] Onset: 11-11-2021 Episodic Other male genital disorders (4 sources) Phimosis; Translations: [PHIMOSIS] Onset: 05-16-2021 Episodic Other nervous system disorders (1 source) Clonic hemifacial spasm, bilateral; Translations: [Clonic hemifacial spasm, bilateral] Onset: 03-06-2018 Episodic Rehabilitation care; fitting of prostheses; and adjustment of devices (4 sources) Encounter for adjustment and management of infusion pump; Translations: [ENCOUNTER FOR ADJUSTMENT AND MANAGEMENT OF INFUSION PUMP] Onset: 07-25-2017 Episodic Spondylosis; intervertebral disc disorders; other back problems (5 sources) Radiculopathy, lumbosacral region; Translations: [Radiculopathy, lumbar region] Onset: 05-04-2017 Episodic Unclassified (4 sources) History of clinical finding in subject 05-12-2021 Results Test Name Value Interpretation Reference Range Facility FERRITINon 01-31-2023 Ferritin [Mass/Vol] 74 ng/mL Normal 24-336 [facility] Comment on above: Performed By: #### F EPR, 75079-9, 2857-1, 2276-4, 2284-8, 2131-10 #### [facility] ([id number]) [address], [address] [place] [address] Folate [Mass/Vol]on 02-01-20 23 FOLIC ACID 6.9 ng/mL Normal >5.[address] [facility] Comment on above: Result Comment: NEW REFERENCE RANGE Performed By: #### F EPR, 73724-2, 2857-1, 2276-4, 2284-8, 2131-10 #### [facility] ([id number]) [address], [address] [place] [address] IRON PROFILEon 01-31-2023 Iron [Mass/Vol] 64 ug/dL Normal 50-[address] [facility] Comment on above: Performed By: #### F EPR, 14361-0, 2857-1, 2276-4, 2284-8, 2131-10 #### [facility] ([id number]) [address], [address] [place] [address] IRON BINDING 290 ug/dL Normal 250-[address] [facility] Comment on above: Performed By: #### F EPR, 33308-8, 2857-1, 2276-4, 2284-8, 9 #### [facility] ([id number]) [address], [address] [place] [address] IRON SATURATION 22 % SATURATION Normal 20-50 [facility] Comment on above: Performed By: #### F EPR, 50659-6, 2857-1, 2276-4, 2284-8, 2131-10 #### [facility] ([id number]) [address], [address] [place] [address] Lipid 1996 panelon 3 Cholesterol [Mass/Vol] 144 mg/dL Low 150-[address] [facility] Comment on above: Performed By: #### F EPR, 76985-6, 2857-1, 2276-4, 2284-8, 9 #### [facility] ([id number]) [address], [address] [place] [address] Cholesterol in HDL [Mass/Vol] 58 mg/dL Normal >[address] [facility] Comment on above: Result Comment: HDL <40 mg/dL - High Risk HDL > or = 40mg/dL- Desirable HDL >60 mg/dL - Negative Risk Performed By: #### F EPR, 92551-4, 2857-1, 2276-4, 2284-8, 9 #### [facility] ([id number]) [address], [address] [place] [address] Cholesterol in LDL [Mass/Vol] 57 mg/dL Normal <[address] [facility] Comment on above: Result Comment: LDL <100 mg/dL - Desirable LDL >160 mg/dL - High Risk Performed By: #### F EPR, 91617-6, 2857-1, 2276-4, 2284-8, 9 #### [facility] ([id number]) [address] [place] [address] Cholesterol in VLDL [Mass/Vol] 29 mg/dL Normal 0-[address] [facility] Comment on above: Performed By: #### F EPR, 28935-8, 2857-1, 2276-4, 2284-8, 2131-9 #### [facility] ([id number]) [address] [place] [address] CHOLESTEROL:HDL 2.5 Normal 1.0-5.[address] [facility] Comment on above: Performed By: #### F EPR, 79400-4, 2857-1, 2276-4, 2284-8, 9 #### [facility] ([id number]) [address] [place] [address] Triglyceride [Mass/Vol] 147 mg/dL Normal 27-[address] [facility] Comment on above: Performed By: #### F EPR, 24079-3, 2857-1, 2276-4, 2284-8, 9 #### [facility] ([id number]) [address] [place] [address] Prostate specific Ag [Mass/V ol]on 01-31-2023 PSA SCREEN 0.17 ng/mL Normal 0.00-4.[address] [facility] Comment on above: Result Comment: The method used for this test is Camron Cecile DXI chemiluminescent immunoassay. Values obtained by different assay methods cannot be used interchangeably. Performed By: #### F EPR, 48831-0, 2857-1, 2276-4, 2284-8, 2131-9 #### [facility] ([id number]) [address] [place] [address] VITAMIN B12on 01-31-2023 Cobalamin (Vitamin B12) [Mass/Vol] 273 pg/mL Normal 180-[address] [facility] Comment on above: Performed By: #### F EPR, 50416-9, 2857-1, 2276-4, 2284-8, 2132-9 #### [facility] ([id number]) [address], [address] [place] [address] DRUG SCREEN, UR-RFLEX CONFIR 09-29-2022 ALCOHOL, UR. Negative Normal (< 10 - Cut[facility]) [facility] Comment on above: Order Comment: FACIL ITY: [facility] [id number] Performed By: #### D S-M+ #### [facility] [address] [facility], [address] AMPHETAMINES, UR. Negative Normal (< 500 - Cutof) [facility] Comment on above: Order Comment: FACIL ITY: [facility] [id number] Performed By: #### D S-M+ #### [facility] [address] [facility], [address] BARBITURATES, UR. Negative Normal (< 300 - Cutof) [facility] Comment on above: Order Comment: FACIL ITY: [facility] [id number] Performed By: #### D S-M+ #### [facility] [address] [facility], [address] BENZODIAZEPINES, UR. Positive High (< 100 - Cutof) [facility] Comment on above: Order Comment: FACIL ITY: [facility] [id number] Result Comment: DAMIR ODIAZEPINES URINE SCREEN = POSITIVE Specimen sent for confirmation testing for benzodiazepines - [facility] test # [id number] Performed By: #### D S-M+ #### [facility] [address] [facility], [address] COCAINE METAB. UR. Negative Normal (< 150 - Cutof) [facility] Comment on above: Order Comment: FACIL ITY: [facility] [id number] Performed By: #### D S-M+ #### [facility] [address] [facility], [address] CREAT, URINE 120.53 MG/DL Normal (20.00 - 370.0) [facility] Comment on above: Order Comment: FACIL ITY: [facility] [id number] Performed By: #### D S-M+ #### [facility] [address] [facility], [address] FENTANYL, UR SCREEN Negative Normal (< 1.0 - Cutof) [facility] Comment on above: Order Comment: FACIL ITY: [facility] [id number] Performed By: #### Emmanuel S-M+ #### [facility] [address] [facility], [address] HEROIN METAB. UR. Negative Normal (< 10 - Cutof) [facility] Comment on above: Order Comment: FACIL ITY: [facility] [id number] Performed By: #### Emmanuel S-M+ #### [facility] [address] [facility], [address] METHADONE METAB. UR. Negative Normal (< 100 - Cutof) [facility] Comment on above: Order Comment: FACIL ITY: [facility] [id number] Performed By: #### D S-M+ #### [facility] [address] [facility], [address] OPIATES, UR. Positive High (< 100 - Cutof) [facility] Comment on above: Order Comment: FACIL ITY: [facility] [id number] Result Comment: OPIA UDAY URINE SCREEN = POSITIVE Specimen sent for confirmation testing for opiates to include oxycodone - [facility] test # [id number] Performed By: #### D S-M+ #### [facility] [address] [place], [address] OXYCODONE, UR. Positive High (< 100 - Cutof) [facility] Comment on above: Order Comment: FACIL ITY: [facility] [id number] Result Comment: OXYC ODONE URINE SCREEN = POSITIVE Specimen sent for confirmation testing for opiates to include oxycodone - [facility] test # [id number] Performed By: #### D S-M+ #### [facility] [address] [facility], [address] pH (U) 5.0 [pH] Normal (5.0 - 9.0) [facility] Comment on above: Order Comment: FACIL ITY: [facility] [id number] Performed By: #### D S-M+ #### [facility] [address] [facility], [address] PHENCYCLIDINE, UR. Negative Normal (< 25 - Cutof) [facility] Comment on above: Order Comment: FACIL ITY: [facility] [id number] Performed By: #### D S-M+ #### [facility] [address] [facility], [address] THC METABOLITE, UR. Negative Normal (< 20 - Cutof) [facility] Comment on above: Order Comment: FACIL ITY: [facility] [id number] Performed By: #### D S-M+ #### [facility] [address] [place], [address] TRAMADOL, UR SCREEN Negative Normal (< 200 - Cutof) [facility] Comment on above: Order Comment: FACIL ITY: [facility] [id number] Result Comment: This drug testing is for medical treatment only. Analysis was performed as non-forensic testing and the results should be used only by healthcare providers to render diagnosis or treatment, or to monitor the progress of medical conditions. Performed By: #### D S-M+ #### [facility] [address] [place], [address] BASIC MET PANEL W/GFRon 07-3 Calcium [Mass/Vol] 8.8 mg/dL Normal (8.6 - 10.6) [facility] Comment on above: Performed By: #### C BC/D, CHEM-B #### [facility] [address] [place], [address] Chloride [Moles/Vol] 98 mmol/L Normal (98 - 107) [facility] Comment on above: Performed By: #### C BC/D, CHEM-B #### [facility] [address] [place], [address] CO2 [Moles/Vol] 34 mmol/L High (22 - 30) [facility] Comment on above: Performed By: #### C BC/D, CHEM-B #### [facility] [address] [place], [address] Creatinine [Mass/Vol] 0.75 mg/dL Normal (0.66 - 1.25) [facility] Comment on above: Performed By: #### C BC/D, CHEM-B #### [facility] [address] [place], [address] GFR- AMER 123.2 ML/M1.7 Normal (60.0 - 161.8) [facility] Comment on above: Performed By: #### C BC/D, CHEM-B #### [facility] [address] [place], [address] GFR-NON AFRIC-AMER 101.8 ML/M1.7 Normal (60.0 - 133.8) [facility] Comment on above: Performed By: #### C BC/D, CHEM-B #### [facility] [address] [place], [address] Glucose [Mass/Vol] 132 mg/dL High (74 - 106) [facility] Comment on above: Performed By: #### C BC/D, CHEM-B #### [place] [facility] [address] [place], [address] Potassium [Moles/Vol] 4.1 mmol/L Normal (3.5 - 5.1) [facility] Comment on above: Performed By: #### C BC/D, CHEM-B #### [facility] [address] [place], [address] Sodium [Moles/Vol] 140 mmol/L Normal (137 - 145) [facility] Comment on above: Performed By: #### C BC/D, CHEM-B #### [facility] [address] [place], [address] Urea nitrogen [Mass/Vol] 13 mg/dL Normal (9 - 20) [facility] Comment on above: Performed By: #### Aries BC/D, CHEM-B #### [facility] [address] [place], [address] CBC WITH DIFFon 09-13-2022 ABS BASOPHIL 0.07 x10^3ul Normal (0.00 - 0.16) [facility] Comment on above: Order Comment: FACIL ITY: DR CAST - OFFICE [id number] Performed By: #### C BC/Emmanuel, CHEM-B #### [facility] [facility] [address] [place], [address] ABS EOSINOPHIL 0.23 x10^3ul Normal (0.00 - 0.40) [facility] Comment on above: Order Comment: FACIL ITY: DR CAST - OFFICE [id number] Performed By: #### C BC/D, CHEM-B #### [facility] [address] [place], [address] ABS IMMATURE GRANS 0.02 x10^3ul Normal (0.00 - 0.11) [facility] Comment on above: Order Comment: FACIL ITY: DR CAST - OFFICE [id number] Performed By: #### C BC/D, CHEM-B #### [facility] [address] [place], [address] ABS LYMPHOCYTE 1.95 x10^3ul Normal (0.96 - 5.40) [facility] Comment on above: Order Comment: FACIL ITY: DR CAST - OFFICE [id number] Performed By: #### C BC/D, CHEM-B #### [facility] [address] [place], [address] ABS MONOCYTE 0.63 x10^3ul Normal (0.10 - 1.00) [facility] Comment on above: Order Comment: FACIL ITY: DR CAST - OFFICE [id number] Performed By: #### C BC/D, CHEM-B #### [place] [facility] [address] [place], [address] ABS NEUTROPHIL 2.41 x10^3ul Normal (1.50 - 7.00) [facility] Comment on above: Order Comment: FACIL ITY: DR CAST - OFFICE [id number] Performed By: #### C BC/D, CHEM-B #### [facility] [address] [place], [address] Basophils/100 WBC (Bld) 1.3 % Normal () [facility] Comment on above: Order Comment: FACIL ITY: DR CAST - OFFICE [id number] Performed By: #### C BC/D, CHEM-B #### [facility] [address] [place], [address] Eosinophils/100 WBC (Bld) 4.3 % Normal () [facility] Comment on above: Order Comment: FACIL ITY: DR CAST - OFFICE [id number] Performed By: #### C BC/D, CHEM-B #### [place] [facility] [address] [place], [address] Hematocrit (Bld) [Volume fraction] 33.1 % Low (42.0 - 52.0) [facility] Comment on above: Order Comment: FACIL ITY: DR CAST - OFFICE [id number] Performed By: #### C BC/D, CHEM-B #### [facility] [address] [place], [address] Hemoglobin (Bld) [Mass/Vol] 10.6 g/dL Low (14.0 - 18.0) [facility] Comment on above: Order Comment: FACIL ITY: DR CAST - OFFICE [id number] Performed By: #### C BC/D, CHEM-B #### [place] [facility] [address] [place], [address] IMMATURE GRANS (IG) 0.4 % Normal () [facility] Comment on above: Order Comment: FACIL ITY: DR CAST - OFFICE [id number] Performed By: #### C BC/D, CHEM-B #### [facility] [address] [place], [address] LYMPS 36.7 % Normal () [facility] Comment on above: Order Comment: FACIL ITY: DR CAST - OFFICE [id number] Performed By: #### C BC/D, CHEM-B #### [place] [facility] [address] [place], [address] MCH (RBC) [Entitic mass] 29.8 pg Normal (27.0 - 33.0) [facility] Comment on above: Order Comment: FACIL ITY: DR CAST - OFFICE [id number] Performed By: #### C BC/D, CHEM-B #### [place] [facility] [address] [place], [address] MCHC (RBC) [Mass/Vol] 32.0 g/dL Normal (30.0 - 37.0) [facility] Comment on above: Order Comment: FACIL ITY: DR CAST - OFFICE [id number] Performed By: #### C BC/D, CHEM-B #### [place] [facility] [address] [place], [address] MCV (RBC) [Entitic vol] 93.0 fL Normal (80.0 - 94.0) [facility] Comment on above: Order Comment: FACIL ITY: DR CAST - OFFICE [id number] Performed By: #### C BC/D, CHEM-B #### [place] [facility] [address] [place], [address] MONOS 11.9 % Normal () [facility] Comment on above: Order Comment: FACIL ITY: DR CAST - OFFICE [id number] Performed By: #### C BC/D, CHEM-B #### [place] [facility] [address] [place], [address] PLT 292 x10^3ul Normal (130 - 400) [facility] Comment on above: Order Comment: FACIL ITY: DR CAST - OFFICE [id number] Performed By: #### C BC/D, CHEM-B #### [place] [facility] [address] [place], [address] RBC 3.56 x10^6ul Low (4.70 - 6.10) [facility] Comment on above: Order Comment: FACIL ITY: DR CAST - OFFICE [id number] Performed By: #### C BC/D, CHEM-B #### [place] [facility] [address] [place], [address] RDW-SD 45.2 fl Normal (37.0 - 49.0) [facility] Comment on above: Order Comment: FACIL ITY: DR CAST - OFFICE [id number] Performed By: #### C BC/D, CHEM-B #### [place] [facility] [address] [place], [address] SEGS 45.4 % Normal () [facility] Comment on above: Order Comment: FACIL ITY: DR CAST - OFFICE [id number] Performed By: #### C BC/D, CHEM-B #### [place] [facility] [address] [place], [address] WBC 5.31 x10^3ul Normal (3.80 - 10.60) [facility] Comment on above: Order Comment: FACIL ITY: DR CAST - OFFICE [id number] Performed By: #### C BC/D, CHEM-B #### [facility] [address] [facility], [address] DRUG SCREEN, UR-RFLEX CONFIR 06-29-2022 ALCOHOL, UR. Negative Normal (< 10 - Cutof) [facility] Comment on above: Order Comment: FACIL ITY: [facility] [id number] Performed By: #### D S-M+ #### [facility] [address] [facility], [address] AMPHETAMINES, UR. Negative Normal (< 500 - Cutof) [facility] Comment on above: Order Comment: FACIL ITY: [facility] [id number] Performed By: #### D S-M+ #### [facility] [address] [facility], [address] BARBITURATES, UR. Negative Normal (< 300 - Cutof) [facility] Comment on above: Order Comment: FACIL ITY: [facility] [id number] Performed By: #### D S-M+ #### [facility] [address] [facility], [address] BENZODIAZEPINES, UR. Positive High (< 100 - Cutof) [facility] Comment on above: Order Comment: FACIL ITY: [facility] [id number] Result Comment: DAMIR ODIAZEPINES URINE SCREEN = POSITIVE Specimen sent for confirmation testing for benzodiazepines - [facility] test # [id number] Performed By: #### D S-M+ #### [facility] [address] [facility], [address] COCAINE METAB. UR. Negative Normal (< 150 - Cutof) [facility] Comment on above: Order Comment: FACIL ITY: [facility] [id number] Performed By: #### D S-M+ #### [place] [facility] [address] [place], [address] CREAT, URINE 75.27 MG/DL Normal (20.00 - 370.0) [facility] Comment on above: Order Comment: FACIL ITY: [facility] [id number] Performed By: #### D S-M+ #### [place] [facility] [address] [place], [address] FENTANYL, UR SCREEN Negative Normal (< 1.0 - Cutof) [facility] Comment on above: Order Comment: FACIL ITY: [facility] [id number] Performed By: #### D S-M+ #### [facility] [address] [place], [address] HEROIN METAB. UR. Negative Normal (< 10 - Cutof) [facility] Comment on above: Order Comment: FACIL ITY: [facility] [id number] Performed By: #### D S-M+ #### [facility] [address] [place], [address] METHADONE METAB. UR. Negative Normal (< 100 - Cutof) [facility] Comment on above: Order Comment: FACIL ITY: [facility] [id number] Performed By: #### D S-M+ #### [facility] [address] [place], [address] OPIATES, UR. Positive High (< 100 - Cutof) [facility] Comment on above: Order Comment: FACIL ITY: [facility] [id number] Result Comment: OPIA UDAY URINE SCREEN = POSITIVE Specimen sent for confirmation testing for opiates to include oxycodone - [facility] test # [id number] Performed By: #### D S-M+ #### [facility] [facility] [address] [place], [address] OXYCODONE, UR. Positive High (< 100 - Cutof) [facility] Comment on above: Order Comment: FACIL ITY: [facility] [id number] Result Comment: OXYC ODONE URINE SCREEN = POSITIVE Specimen sent for confirmation testing for opiates to include oxycodone - [facility] test # [id number] Performed By: #### D S-M+ #### [facility] [address] [facility], [address] pH (U) 6.0 [pH] Normal (5.0 - 9.0) [facility] Comment on above: Order Comment: FACIL ITY: [facility] [id number] Performed By: #### D S-M+ #### [facility] [address] [facility], [address] PHENCYCLIDINE, UR. Negative Normal (< 25 - Cutof) [facility] Comment on above: Order Comment: FACIL ITY: [facility] [id number] Performed By: #### D S-M+ #### [facility] [address] [facility], [address] THC METABOLITE, UR. Negative Normal (< 20 - Cutof) [facility] Comment on above: Order Comment: FACIL ITY: [facility] [id number] Performed By: #### D S-M+ #### [facility] [address] [place], [address] TRAMADOL, UR SCREEN Negative Normal (< 200 - Cutof) [facility] Comment on above: Order Comment: FACIL ITY: [facility] [id number] Result Comment: This drug testing is for medical treatment only. Analysis was performed as non-forensic testing and the results should be used only by healthcare providers to render diagnosis or treatment, or to monitor the progress of medical conditions. Performed By: #### D S-M+ #### [facility] [address] [place], [address] XR FOOT LT MIN 3 VIEWSon XR FOOT LT MIN 3 VIEWS EXAM: XR FOOT LT MIN 3 VIEWS Please see tibia-fibula x-rays of same day Electronically authenticated by: JESSA ADAM Date: 2022-04-19 17:08 Normal [facility] XR HUMERUS LT MIN 2Von 04-19 XR HUMERUS LT MIN 2V EXAM: XR HUMERUS LT MIN 2V, XR FOREARM LT 2 VIEWS HISTORY: Pain following fall COMPARISON: None. TECHNIQUE: 2 views of the humerus and 2 views of the forearm. FINDINGS: No osseous lesion, fracture, dislocation or subluxation. Age-related changes of the acromioclavicular, glenohumeral, elbow and wrist joints. No visualized effusion. No visualized soft tissue edema. IMPRESSION: No acute irregularity Electronically authenticated by: JESSA ADAM Date: 2022-04-19 16:58 Normal [facility] XR TIB_FIB LT 2Von 3 XR TIB_FIB LT 2V EXAM: XR TIB_FIB LT 2V, XR FEMUR LT HISTORY: Unspecified fall COMPARISON: None. TECHNIQUE: 5 views of the lower leg 4 views of the femur and 3 views of the foot FINDINGS: No fracture, dislocation, subluxation or osseous lesion. However, evaluation of the lateral malleolus is nondiagnostic on this study. Joint spaces are unremarkable for patient's age. Scattered vascular calcifications. Soft tissue edema of the dorsal aspect of the foot and surrounding the ankle. IMPRESSION: Soft tissue edema. No gross visualized osseous abnormality, however, evaluation of the ankle joint is limited on these images Electronically authenticated by: JESSA ADAM Date: 2022-04-19 17:07 Normal [facility] CBC AUTO DIFFon 01-24-2022 BASO # 0.1 103/ul Normal 0.0-0.1 [facility] Comment on above: Performed By: #### C BC #### [facility] [address] [place] [address] Dr. Terence Hilario Basophils/100 WBC (Bld) 0.5 % Normal 0.2-2.0 [facility] Comment on above: Performed By: #### C BC #### [facility] [address] [place] [address] Dr. Terence Hilario EO # 0.2 103/ul Normal 0.0-0.7 [facility] Comment on above: Performed By: #### C BC #### [facility] [address] [place] [address] Dr. Terence Hilario Eosinophils/100 WBC (Bld) 1.8 % Normal 0.9-7.0 [facility] Comment on above: Performed By: #### C BC #### [facility] [address] [place] [address] Dr. Terence Hilario Erythrocyte distribution width (RBC) [Ratio] 13.4 % Normal 11.0-15.0 [facility] Comment on above: Performed By: #### C BC #### [facility] [address] [place] [address] Dr. Terence Hilario Hematocrit (Bld) [Volume fraction] 34.4 % Critically low 42.0-54.0 [facility] Comment on above: Performed By: #### C BC #### [facility] [address] [place] [address] Dr. Terence Hilario Hemoglobin (Bld) [Mass/Vol] 11.4 g/dL Critically low 14.0-18.0 [facility] Comment on above: Performed By: #### C BC #### [facility] [address] [place] [address] Dr. Terence Hilario IG # 0.04 10e3/ul Critically high 0.00-0.03 [facility] Comment on above: Performed By: #### C BC #### [facility] [address] [place] [address] Dr. Terence Hilario IG % 0.3 % Normal 0.0-0.5 [facility] Comment on above: Performed By: #### C BC #### [facility] [address] [place] [address] Dr. Terence Hilario LYMPH # 1.6 103/ul Normal 1.2-3.8 [facility] Comment on above: Performed By: #### C BC #### [facility] [address] [place] [address] Dr. Terence Hilario Lymphocytes/100 WBC (Bld) 12.6 % Critically low 20.5-60.0 [facility] Comment on above: Performed By: #### C BC #### [facility] [address] [place] [address] Dr. Terence Hilario MANUAL DIFF REQ NO Normal [facility] Comment on above: Performed By: #### C BC #### [facility] [address] [place] [address] Dr. Terence Hilario MCH (RBC) [Entitic mass] 30.5 pg Normal 25.9-34.0 [facility] Comment on above: Performed By: #### C BC #### [facility] [address] [place] [address] Dr. Terence Hilario MCHC (RBC) [Mass/Vol] 33.1 g/dL Normal 29.9-35.2 [facility] Comment on above: Performed By: #### C BC #### [facility] [address] [place] [address] Dr. Terence Hilario MCV (RBC) [Entitic vol] 92.0 fL Normal 80.0-94.0 [facility] Comment on above: Performed By: #### C BC #### [facility] [address] [place] [address] Dr. Terence Hilario MONO # 1.0 103/ul Critically high 0.3-0.8 [facility] Comment on above: Performed By: #### C BC #### [facility] [address] [place] [address] Dr. Terence Hilario Monocytes/100 WBC (Bld) 7.7 % Normal 1.7-12.0 [facility] Comment on above: Performed By: #### C BC #### [facility] [address] [place] [address] Dr. Terence Hilario NEUT # 9.5 103/ul Critically high 1.4-6.5 [facility] Comment on above: Performed By: #### C BC #### [facility] [address] [place] [address] Dr. Terence Hilario Neutrophils/100 WBC (Bld) 77.1 % Critically high 43.0-75.0 [facility] Comment on above: Performed By: #### C BC #### [facility] [address] [address] [address] Terence Hilario Platelet mean volume (Bld) [Entitic vol] 8.6 fL Critically low 9.5-13.5 [facility] Comment on above: Performed By: #### C BC #### [facility] [id number] Terence Hilario PLT 241 103/ul Normal 150-450 [facility] Comment on above: Performed By: #### C BC #### [facility] [address] [address] [address] Terence Hilario RBC 3.74 106/ul Critically low 4.70-6.10 [facility] Comment on above: Performed By: #### C BC #### [facility] [address] [address] [address] Terence Hilario WBC 12.3 103/ul Critically high 4.0-11.0 [facility] Comment on above: Performed By: #### C BC #### [facility] [address] [place], [place] [address] HEAD WO CONon 01-24-2022 CT HEAD WO CON EXAMINATION: CT HEAD WO CON HISTORY: Confusion, dizziness COMPARISON: CT of head 05/18/2013. TECHNIQUE: CT examination of the head without IV contrast. Dose reduction techniques were achieved by using automated exposure control and/or adjustment of mA and/or kV according to patient size and/or use of iterative reconstruction technique. FINDINGS: Calvarium/skull base: No evidence of acute fracture or destructive lesion. Mastoids and middle ears demonstrate no substantial mucosal disease. Paranasal sinuses: Mild paranasal sinus mucosal thickening with mucosal retention cysts involving the bilateral maxillary sinus. Brain: No acute intracranial hemorrhage. Query extremely subtle hypodensity involving the cortical left frontal white matter anteriorly with questionable loss of alanis-white differentiation concerning for recent left frontal lobe infarct. No mass lesion or mass effect. No hydrocephalus. IMPRESSION: 1. No acute intracranial hemorrhage. 2. Questionable extremely subtle hypodensity involving the cortical left frontal white matter anteriorly with questionable loss of alanis-white differentiation concerning for recent left frontal lobe infarct. Notification of Results Provider/Agent notified: Dr. Beck Saenz Time/Date notified: 01/24/2022 8:19 AM MST Notifying Staff: Dr. Shook Electronically authenticated by: LALITO SHOOK Date: 2022-01-24 10:20 Normal [facility] PROF 14(COMP METB)on 022 Albumin [Mass/Vol] 3.4 g/dL Normal 3.4-5.0 [facility] Comment on above: Performed By: #### H GB #### [facility] [address] [place] [address] Dr. Terence Hilario Albumin/Globulin [Mass ratio] 0.9 {ratio} Normal [facility] Comment on above: Performed By: #### H GB #### [facility] [address] [place] [address] Dr. Terence Hilario ALP [Catalytic activity/Vol] 73 U/L Normal 46-116 [facility] Comment on above: Performed By: #### H GB #### [facility] [address] [address] [address] Terence Hilario ALT [Catalytic activity/Vol] 24 U/L Normal 16-63 [facility] Comment on above: Performed By: #### H GB #### [facility] [address] [place] [address] Dr. Terenec Hilario Anion gap [Moles/Vol] 12.4 mmol/L Normal [facility] Comment on above: Performed By: #### H GB #### [facility] [address] [address] [address] Terence Hilario AST [Catalytic activity/Vol] 21 U/L Normal 15-37 [facility] Comment on above: Performed By: #### H GB #### [facility] [address] [address] [address] Terence Hilario Bilirubin [Mass/Vol] 0.3 mg/dL Normal 0.2-1.0 [facility] Comment on above: Performed By: #### H GB #### [facility] [address] [address] [address] Terence Hilario Calcium [Mass/Vol] 8.7 mg/dL Normal 8.5-10.1 [facility] Comment on above: Performed By: #### H GB #### [facility] [address] [address] [address] Terence Hilario Chloride [Moles/Vol] 102 mmol/L Normal 98-107 [facility] Comment on above: Performed By: #### H GB #### [facility] [address] [address] [address] Terence Hilario CO2 [Moles/Vol] 31.5 mmol/L Normal 21.0-32.0 [facility] Comment on above: Performed By: #### H GB #### [facility] [address] [place] [address] Dr. Terence Hilario Creatinine [Mass/Vol] 1.09 mg/dL Normal 0.70-1.30 [facility] Comment on above: Performed By: #### H GB #### [facility] [address] [place] [address] Dr. Terence Hilario EGFR-AF POLISH >60 Normal >=60 [facility] Comment on above: Performed By: #### H GB #### [facility] [address] [place] [address] Dr. Terence Hilario EGFR-NON AF POLISH >60 Normal >=60 [facility] Comment on above: Performed By: #### H GB #### [facility] [address] [address] [address] Terence Hilario Globulin (S) [Mass/Vol] 3.8 g/dL Normal [facility] Comment on above: Performed By: #### H GB #### [facility] [address] [place] [address] Dr. Terence Hilario Glucose [Mass/Vol] 158 mg/dL Critically high 74-106 [facility] Comment on above: Performed By: #### H GB #### [facility] [address] [address] [address] Terence Hilario Potassium [Moles/Vol] 3.9 mmol/L Normal 3.5-5.1 [facility] Comment on above: Performed By: #### H GB #### [facility] [address] [address] [address] Terence Hilario Protein [Mass/Vol] 7.2 g/dL Normal 6.4-8.2 [facility] Comment on above: Performed By: #### H GB #### [facility] [address] [address] [address] Terence Hilario Sodium [Moles/Vol] 142 mmol/L Normal 136-145 [facility] Comment on above: Performed By: #### H GB #### [facility] [address] [place] [address] Dr. Terence Hilario Urea nitrogen [Mass/Vol] 12.0 mg/dL Normal 7.0-18.0 [facility] Comment on above: Performed By: #### H GB #### [facility] [address] [place] [address] Dr. Terence Hilario Urea nitrogen/Creatinine [Mass ratio] 11.0 mg/mg Normal [facility] Comment on above: Performed By: #### H GB #### [facility] [address] [place] [address] Dr. Terence Hilario DRUG SCREEN, UR-RFLEX CONFIR [facility] 12-30-2021 ALCOHOL, UR. Negative Normal (< 10 - Cutof) [facility] Comment on above: Order Comment: FACIL ITY: [facility] [id number] Performed By: #### D S-M+ #### [facility] [address] [place], [address] AMPHETAMINES, UR. Negative Normal (< 500 - Cutof) [facility] Comment on above: Order Comment: FACIL ITY: [facility] [id number] Performed By: #### D S-M+ #### [facility] [address] [place], [address] BARBITURATES, UR. Negative Normal (< 300 - Cutof) [facility] Comment on above: Order Comment: [facility]IL [facility]Y: [facility] [id number] Performed By: #### D S-M+ #### [facility] [address] [place], [address] BENZODIAZEPINES, UR. Positive High (< 100 - Cutof) [facility] Comment on above: Order Comment: FACIL ITY: [facility] [id number] Result Comment: DAMIR ODIAZEPINES URINE SCREEN = POSITIVE Specimen sent for confirmation testing for benzodiazepines - [facility] test # [id number] Performed By: #### D S-M+ #### [facility] [address] [place], [address] COCAINE METAB. UR. Negative Normal (< 150 - Cutof) [facility] Comment on above: Order Comment: FACIL ITY: [facility] [id number] Performed By: #### D S-M+ #### [facility] [address] [facility], [address] CREAT, URINE 80.50 MG/DL Normal (20.00 - 370.0) [facility] Comment on above: Order Comment: FACIL ITY: [facility] [id number] Performed By: #### D S-M+ #### [facility] [address] [place], [address] FENTANYL, UR SCREEN Negative Normal (< 1.0 - Cutof) [facility] Comment on above: Order Comment: FACIL ITY: [facility] [id number] Performed By: #### D S-M+ #### [facility] [address] [place], [address] HEROIN METAB. UR. Negative Normal (< 10 - Cutof) [facility] Comment on above: Order Comment: FACIL ITY: [facility] [id number] Performed By: #### D S-M+ #### [facility] [address] [place], [address] METHADONE METAB. UR. Negative Normal (< 100 - Cutof) [facility] Comment on above: Order Comment: FACIL ITY: [facility] [id number] Performed By: #### D S-M+ #### [facility] [address] [facility], [address] OPIATES, UR. Positive High (< 100 - Cutof) [facility] Comment on above: Order Comment: FACIL ITY: [facility] [id number] Result Comment: OPIA UDAY URINE SCREEN = POSITIVE Specimen sent for confirmation testing for opiates to include oxycodone - [facility] test # [id number] Performed By: #### D S-M+ #### [facility] [address] [place] [address] Rd. [facility], [address] OXYCODONE, UR. Positive High (< 100 - Cutof) [facility] Comment on above: Order Comment: FACIL ITY: [facility] [id number] Result Comment: OXYC ODONE URINE SCREEN = POSITIVE Specimen sent for confirmation testing for opiates to include oxycodone - [facility] test # [id number] Performed By: #### D S-M+ #### [facility] [address] [place] [address] Rd. [facility], [address] pH (U) 5.0 [pH] Normal (5.0 - 9.0) [facility] Comment on above: Order Comment: FACIL ITY: [facility] [id number] Performed By: #### D S-M+ #### [facility] [address] [place], [place] [address]or Rd. [facility], [address] PHENCYCLIDINE, UR. Negative Normal (< 25 - Cutof) [facility] Comment on above: Order Comment: FACIL ITY: [facility] [id number] Performed By: #### D S-M+ #### [facility] [place], [address] THC METABOLITE, UR. Negative Normal (< 20 - Cutof) [facility] Comment on above: Order Comment: FACIL ITY: [facility] [id number] Performed By: #### D S-M+ #### [facility] [address] [facility], [address] TRAMADOL, UR SCREEN Negative Normal (< 200 - Cutof) [facility] Comment on above: Order Comment: FACIL ITY: [facility] [id number] Result Comment: This drug testing is for medical treatment only. Analysis was performed as non-forensic testing and the results should be used only by healthcare providers to render diagnosis or treatment, or to monitor the progress of medical conditions. Performed By: #### D S-M+ #### [facility] [address] [facility], [address] Coding Summary.on 12-09-2021 Coding Summary. CD:[id number] Gh 0bWw+PGhlYWQ+SL9BMAQtU 96hnSQsoQ9ZI8yEPL8IAUB EJREXKR9CWV1pzXP9CLxkJ 2VybiAv TduegTJnWM07IQu5QJD5zC keASiwbS6ewSUyL5v3KqNf NK29uV14ULevSVDkSlU7Ed ZpbjsgbWFy X5zxCdLctSSoCxz+PHRhYm xlIHdpZHRoPScxMDAlJyBz pBdeAK1sDh8dGFZeGNPpkF xhcHNlOiBj m8piNKMeUBlhZS6bcZtlV6 CpsYZ9XKCxz2v2Hm07uAC+ GDLmLPT3aOsyJXmyn771Cv Bfe3udZYN2 iEYpFAqiBJG1G76dw3Z7QD KgVRWsHNV0oVU2wF5zuVbu whotO1FuvKZqXwS0IUA7pU BtpM8sfRdw wqrorQ7zXhj+Q52NSJ3LHF YNGN3IMvj4G1NxFxrzuVJ+ WE52YPVqTI47nMOalOUau7 jcaDl8XxOb QTBeBRM7dIaqVZshk9UuOP ZgB69yaMSgh1N2LOVfpXgs lHPmZrAmnQO0fU4qVVfguj wje6mcyqkz Uklzi7wmie19qI83V36wQF vlTDMcEYZ6RYWjIPBrcWug kq1gwE0vKb2+RRgtu7bpk9 chsQb1KnNl MXHtvfTqyGqiZJK1j6GlLt 11R9UxjHpzq6KmRlt5nl81 uAIhp0F6fMJ9VSgxIQGwlT 7eHEfrNrI8 TNXgUvHrsC68tNYuMLfhXm 5zyYgyrIkwTY1nWTRfwzuj JBDmwS9xZELvjLUycFctVX 4wNTBpbjtm s800QqHqOOI0YYTnqAXrU5 ZumV3aPjUkXNFxZNEvW2Mv kPZeNYjcZ900GNbrFlX7ZD FivxXjX0An ECTlnFiwCvU0w7R9Gt6Vs7 UzvafxPES6PHxuRGMbSpX2 XkVsNaG7W1YcTga8XGZnqV hkLN9sC1Xm LFYvsrhxnhboaJN0RJRlUM VmvB46yBUrZJyhRy6pq9E1 b574IQRlVGUocN77Hg2ykX ogMTBwdCBU uR0ptngal6adbuocJjKiUT CtIRe4LUa1MNAfeLjfFqRv IQT8BjY0YFK7kHJurM9avL uugwdocO6e Oyc+C02yjE7mYMV1VEZ3uf clAJGmddFrIY93NB15Z9Bp PjwvdGFibGU+PGRpdiBzdH brTH5mPtXq i8qbc9VsYRksJ5LcGNJpVD lyMup1ZCIqLBK1bSU7qX8o UCOwTShgh3S1yIA9Y0Yonx Kbng6tp2gq ZGTgNBnsQ64vzCYtl9U3TB AyjKV6XJCikWfdCaGrqV01 Oyc+KALvhZlty6NqAubpc5 myl6wxtRe1 LpYySKHnttEndXqnHPW0f2 ElZo85M41cLZtuVPZmGOBj LWSzAMBigChely8rzP4qOh 8+PGNvbCB3 wKH7rF6bBMDgLhE3KUmhO3 21XqLnlLSzMjrpk0gbg0ob vIq3CzOlAGAksiMyhFskCV J0h3UgXj61 O76gHDfxILWjPENaTHKxMA KhkXduqn7fqO0sQd2+PC9j q2pims08hA08sES+PHRkIH X6aKdmATcj EBVysU1kAQsfUoK5GLGhMf AtjO63wHJgJBoqYp0clJhm yRumBF0eEZFodtrll351Sr Zah1gdVYIj xOTyHRkdWQM6A54yu6A3BI SjUHUtLKT8kOI8gE6bwCnp bjogbGVmdDsgdmVydGljYW dkYEsxI527 IHRvcDsnPlBhdGllbnQgTm YfUKi7O8OiAan1AWEdmFsr WE4ktWNvVHmsZg4kzGqhxC jaGX8tGYVz lxmla892WcArv7cnLVOeeC UlJVjmCLW9K54uh7K4SVQz KWNwTXI2tTU2mN3feXerun ogbGVmdDsg lcRjjUhyZIbzECgcF646YB RvcDsnPkJpcnRoIERhdGU6 PT17VL33xIGzi8H0oOJ8A7 BhZGRpbmct ugahpZF9BUOgRODuyD51Of 7naVdyXn0pBWDxXTS3DVZx eQAaP4MtqJ5jXzEoABHdWW MmL1FpiSXq AUymD321QYgqJtF7JWHxxa ZsC3NaQIWktGziNoD5t2S7 Xr4BK0D3KB86MZ79eLNlp4 E0cAF4X4Aa CSIjezvwnhbibYQ7CJRgWQ UqpY52Al4gaKgkRn3vHQLv HPM9MYUnyGGoM0JmhR9fOi AjMDAwMDAw T0IknUGsBHmxN115ZVabMz F7VHKetxYrP0HrILAidUqp RqJ3x5D5Kg8YTHn8SP81LK 92nAIox1G9 rTF4K5KeTMBvkwrkpigyvZ V5GWDoIFTijW38Jn3owPqt Sy9sUDWeHUZ8HJQzuBZcU6 SnsT9sWsTj DFLwGSSoJ0NtuIPoUYyaG8 32IYerSqM5CYZojhPnI8Dn PTHjePjmNbU2a6S4Yr7FQI KrJG58OLB2 wAV2NO63WI12D8UpZkngyW FibGU+PHRhYmxlIHdpZHRo SVwwZRJcBdZmcIioOJ1oUi 9yZGVyLWNv yXjssOUzIoPuo0rtFJToJK mnCE9yjMdwH3BsdBG0RYOv k9q5Uu84J63uM1VrrOO+PG ItjOX9mBO1 sZ3nLmRlTuH1AZakN708Oj GttXVxSdkuz3nuf5ijaGp1 CqD1GGRansViyHucQHU8x7 IcKb95O62z IHdpZHRoPSIxNSUiIHZhbG zlhw7xyG6lNe1+PGNvbCB3 dAK4iP6hVbSqNdJ3OSjtZ2 49InRvcCIv Fjyjn2hkv9laxPy6EsRnPG LcvvWdgTteOEG0p9WeJo93 C7SesMsta2PpBml1ov81fK Lan8B3aIJ2 U1WiRBFqfctgbSQqcLhqRN 1uPHPvvlhbPGSkvN1oFSSs F0h8DkBuFeI1OZhsY2Cwjh K7SLDgbGWy CQmgTJA6Y21cr5Q8HCKcWX VqSRC8gAL0jP1xlShozvce bGVmdDsgdmVydGljYWwtYW voE139HRYj fFpfGPLyoG3wROSkcIYczH doRL9hQGKmhppvVkIHAdvV HhSzNJJUEa3PUM12OB75lV Fcl5N5dRJ6 A2YsWGOdodgyjlgmaEY2XM JpUMXmhH59qMWsYTdsYm4v u5Q6o593ROBsRBAdzC55Lx 9udDogMTBw aOVWqT0lhesyp8bjuszyIw HgFCBwXCj5LGb4UIRaxNjr PiPoVZV3YlF5TXN4pHWtnC 1hbGlnbjog sE7mQft+ZSjiKPLyLNy9HW wvdGQ+CHTbNPW1qVquURzj YHMfsY2tKJCzK8j5SuUwEn M6DSsfQ8Ne OBYwioatZt13dV8oIwRlYd J2MTwlE0EmamC1RLHooHRo KXbiFOW0I81du7Z8BRCwIF NmZPI3cHA5 bP8vtEccwubvhZJegBnpim BfzLlzAHyjOPslU268CNPl lOhpCwfaYEwqSKJjOQ28SV 47rSIyy2K9 qFI9W5IqVQSobxrmhfydfN R1TGWyHURqfG80lTWrQXli Lw1nv3A8b195UWSgSLFfqL 05Mu8khTyv AIYutISWbD7bqvcpb6ljng qiPtMsOYQwRSe9DVn9HJRo yJjzRpTjDPX7QgX5NSG5qU WtnI4fvXdl jaecsK4fOje+TWFsZTwvdG Q+TDKlSHK0rTlbHDjhRYLq jW9yMEVyP8g0HzGeBaU7WA jhP3VaXLKj zjcqEe65kG7wVjJeVvN1WN pbQ7JgjbS4KRTxnNCiTSdz AVS6U31hw0Q8IRUuUFAxOH I6pUA1iG5c bGlnbjogbGVmdDsgdmVydG osKEodJRlxC958QGXomBtx GrzwMeOFfw1pRW9jShahxU Q+ZW49mi68 I9NvEtaoWjv3AMJmDPL4nP J6vG8wPEOuIRcik0M2bTI0 A7ClucJsmn5bv5xyYKVnLI evG75uzSMz a2W3GOAhlHN9RFGhaYrhNj NfmS80Ibj+YGEdxPpmn1Ho Yaozj8joo3cibAr8DwNsED IgdmFsaWdu ZSZ6q9TxOb52L23hYYvaTA UjSGSqMZDyJDDchTilaq5u nG9vNk7+PWJjmSN7rRJ8vT 6bBoPzTyO5 UPceK778PxMxsBBiLkpmo6 kvo6eafBj2KtMoTUMughHf nPklQOE3n9UjFl26L9VmfJ wvt8GgJbp7 dd16kVOjr1W9sAS0J1KnLZ VrgqjelSFfoIjgNR8aWKMx umzdIRZcgQ1iABJeM5l0Za VlSbO3NEqm K0AbrfB1TXVagCTrPALkwT ILsO0yuhyjw0ougdmqPlGa PUSfJOf8UNh9LGYibXjcBv OiDCK9MbQ2 MRT6cZFczG8ohNhvbfzmaM 9wOyc+JIc9k6qgaZEkYV3a gTH8HC59FB42jUJuc9Z6iZ K2V6HdIXNr htgwmxqdmZE3FQOwEDBpqN 26Ba9kbWliYq2vPDIzZNJ5 WLDczMXsB5SovN9gReJcYV QyUGHeT8Ia uEWdHXipG204WUdsMrS9YG GhntLiI5HjJMBotCwzDpT0 p9H2Fu6SIK57JH75TQ74qB Vfo4C7zQQ2 U9EfAPQvoefbrqrndPR7YD XyZCUwrC34Ow7jtWzwOi3f LDLeCOG0UNBerAOrF8CarP 9yOiAjMDAw NGAgI3MmvTKjUEprR291HO ncAuI4AIIyfiEkM9NiAOIu aJvmWaA1y1T3Nl6LSy77PI 69BO11tHUa a1P9cVI6P2JeTUTmxtwtju mvqLO0NDRlYDSlhE94Uq0q sBtnXk0aKSNwGHH7SXZuwI UzB7CpbE0x XsFfHUNbSXMtH4WvtZEoZO lmO476BCsgLvX9HIUmspGe D5DgFUMuyVjcQbA6u9A1Sz 3RTIqygmu2 R6YeNdwklWG+SV62VOJhMU 49lCCtsDTlg8fptQu3SwYj LYDtJBT0rAtgEFfew3VlZH OyV91xyZCw c2U6 (more content not included)... Normal [facility] Blood Gas Art, with Lytes, G joseline, [place] 12-01-2021 a/A Ratio Art 64.70 % Normal >=0.80 [facility] Comment on above: Performed By: #### 4 [id number] ####[facility] [address] [place] [address] AaDO2 Art 30.4 mmHg High 5.0-15.0 [facility] Comment on above: Performed By: #### 4 [id number] ####[facility] [address] [place] [address] Allens Test Not Applicable Normal [facility] Comment on above: Performed By: #### 4 [id number] ####[facility] [address] [place] [address] Base Excess Arterial 2.8 mmol/L Normal >=2.8 [facility] Comment on above: Performed By: #### 4 [id number] ####[facility] [address] [place] [address] cCa2+ Art 4.83 mg/dL Normal 4.40-5.30 [facility] Comment on above: Performed By: #### 4 [id number] ####[facility] [address] [place] [address] cCl- Art 103.0 mmol/L Normal 101.0-111.0 [facility] Comment on above: Performed By: #### 4 [id number] ####[facility] [address] [place] [address] cGlu Art 110 mg/dL High 55-99 [facility] Comment on above: Performed By: #### 4 [id number] ####[address] [address] cK+ Art 4.3 mmol/L Normal 3.5-5.3 [facility] Comment on above: Performed By: #### 4 [id number] ####[address] [address] cLac Art 1.6 mmol/L Normal .5-2.2 [facility] Comment on above: Performed By: #### 4 [id number] ####[address] [place] [address] paper roller+ Art 140.0 mmol/L Normal 135.0-145.0 [facility] Comment on above: Performed By: #### 4 [id number] ####[facility] [address] [place] [address] Drawn by MAGALIE Invalid Interpretation Code [facility] Comment on above: Performed By: #### 4 [id number] ####[facility] [address] [place] [address] FCOHb Art 1.1 % Low 1.5-4.9 [facility] Comment on above: Result Comment: Refe rence range Nonsmoker <1.5% Smoker <5.0% Heavy Smoker <9.0% Performed By: #### 4 [id number] ####[address] [place] [address] FIO2 BG 21 Invalid Interpretation Code [facility] Comment on above: Performed By: #### [id number] ####[address] [place] [address] FMetHb Art 0.2 % Normal 0.0-1.9 [facility] Comment on above: Performed By: #### 4 [id number] ####[address] [address] FO2Hb Art 88.7 % Low 93.0-100.0 [facility] Comment on above: Performed By: #### 4 [id number] ####[address] [address] HCO3 (Bld) [Moles/Vol] 26.7 mmol/L High 22.0-26.0 [facility] Comment on above: Performed By: #### 4 [id number] ####[address] [address] Hemoglobin (Bld) [Mass/Vol] 11.1 g/dL Low 12.0-17.0 [facility] Comment on above: Performed By: #### 4 [id number] ####[address] [address] Oxygen saturation in Blood 89.9 % Low 95.0-100.0 [facility] Comment on above: Performed By: #### 4 [id number] ####[address] [address] P CO2 Arterial 51.4 mmHg High 35.0-45.0 [facility] Comment on above: Performed By: #### 4 [id number] ####[address] [address] P O2 Arterial 55.7 mmHg Low 80.0-100.0 [facility] Comment on above: Performed By: #### 4 [id number] ####[facility] [address] [place] [address] pH Arterial 7.361 Normal 7.350-7.450 [facility] Comment on above: Performed By: #### 4 [id number] ####[facility] [address] [place] [address] Sample Site R Radial Normal [facility] Comment on above: Performed By: #### 4 [id number] ####[facility] [address] [place] [address] Sample Type Arterial Draw Normal [facility] Comment on above: Performed By: #### 4 [id number] ####[facility] [address] [place] [address] FT Blood GasesOrdered By: Ra eliseo Herrera on 12-01-2021 a/A Ratio Art 64.70 % Normal >=0.80% [facility] Resp Auto SS AaDO2 Art 30.4 mm[Hg] High 5.0 - 15.0 mmHg [facility] Resp Auto SS Allens Test Not Applicable (12/01/21 2:28 PM) Normal [facility] Resp Auto SS Base Excess Arterial 2.8 mmol/L Normal >=2.8mmol/L [facility] C Resp Auto SS cCa2+ Art 4.83 mg/dL Normal 4.40 - 5.30 mg/dL [facility] Resp Auto SS cCl- Art 103.0 mmol/L Normal 101.0 - 111.0 mmol/L [facility] Resp Auto SS cGlu Art 110 mg/dL High 55 - 99 mg/dL [facility] Resp Auto SS cK+ Art 4.3 mmol/L Normal 3.5 - 5.3 mmol/L [facility] Resp Auto SS cLac Art 1.6 mmol/L Normal 0.5 - 2.2 mmol/L [facility] Resp Auto SS paper roller+ Art 140.0 mmol/L Normal 135.0 - 145.0 mmol/L [facility] Resp Auto SS Drawn by MAGALIE Invalid Interpretation Code [facility] Resp Auto SS FCOHb Art 1.1 % Low 1.5 - 4.9 % [facility] Resp Auto SS FIO2 BG 21 Invalid Interpretation Code [facility] Resp Auto SS FMetHb Art 0.2 % Normal 0.0 - 1.9 % [facility] [place] FO2Hb Art 88.7 % Low 93.0 - 100.0 % [facility] [place] SS HCO3 (Bld) [Moles/Vol] 26.7 mmol/L High 22.0 - 26.0 mmol/L [facility] [place] Auto SS Hemoglobin (Bld) [Mass/Vol] 11.1 g/dL Low 12.0 - 17.0 gm/dL [facility] [place] Auto SS P CO2 Arterial 51.4 mm[Hg] High 35.0 - 45.0 mmHg [facility] [place] Auto SS P O2 Arterial 55.7 mm[Hg] Low 80.0 - 100.0 mmHg [facility] [place] Auto SS pH Arterial 7.361 Normal 7.350 - 7.450 [facility] [place] Auto [place] Sample Site R Radial (12/01/21 2:28 PM) Normal [facility] [facility] [place] Auto SS Sample Type Arterial Draw (12/01/21 2:28 PM) Normal [facility] [place] SS HEMOGLOBINon 12-01-2021 Hemoglobin (Bld) [Mass/Vol] 11.1 g/dL Critically low 14.0-18.0 [facility] Comment on above: Performed By: #### H GB #### [facility] [address] [place] [address] Dr. Terence Hilario LAB TESTINGon 12-01-2021 RECV HEADER SEE SCANNED REPORT I N HPF [facility] Comment on above: Performed By: #### H GB #### [facility] [address] [place] [address] Dr. Terence Hilario REV FROM REF LAB 12/01/21 [facility] Comment on above: Performed By: #### H GB #### [facility] [address] [place] [address] Dr. Terence Hilario SENT TO REF LAB 12/01/21 [facility] Comment on above: Performed By: #### H GB #### [facility] [address] [place] [address] Dr. Terence Hilario Physician Orderon 12-01-2021 Physician Order [id number] Normal [facility] CT CHEST WO CONon 11-11-2021 CT CHEST WO CON EXAMINATION: CT CHES T WO CON HISTORY: Imaging result abnormal ; chronic shortness breath, cough, follow-up infiltrates COMPARISON: CT chest 05/16/2021, 04/15/2015 TECHNIQUE: Axial, Coronal, and Sagittal images were created without the administration of IV contrast material. Dose reduction techniques were achieved by using automated exposure control and/or adjustment of mA and/or kV according to patient size and/or use of iterative reconstruction technique. FINDINGS: LUNGS: Clearing of previously seen infiltrates. Trace amount of atelectasis, or less likely infiltrates, within left posterior costophrenic angle which are new since prior study. Stable chronic calcified granuloma within posterior right lung base, and small 5 mm nodule within posterior lateral left lung base. PLEURA: No mass, effusion, or pneumothorax. VASCULATURE: No abnormality. LINO: Calcified lymph nodes. MEDIASTINUM: Calcified lymph nodes compatible with chronic granulomatous disease. CARDIAC: No enlargement or pericardial thickening. AORTA: No aneurysm or dissection. CHEST WALL: No mass or axillary adenopathy. BONES: No bone lesion or fracture. LIMITED ABDOMEN: No suspicious findings. Limited images of the upper abdomen. OTHER: Negative. IMPRESSION: 1. Clearing of previously seen pulmonary infiltrates. 2. No suspicious lymphadenopathy. 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 Phimosis Urge incontinence Your Care Team Attending Physician - Shawn Allen MD, Cinita Hernandez Primary Care Physician - JENNY CAST MD This Is Your Medications List Contact prescribing physician if questions or concerns albuterol (Albuterol (Eqv-ProAir HFA) 90 mcg/inh inhalation aerosol) atorvastatin (atorvastatin 40 mg Tab) baclofen (baclofen 10 mg Tab) carbamazepine (carBAMazepine 100 mg Chew Tab) clopidogrel diazepam (diazepam 5 mg Tab) doxycycline duloxetine (duloxetine 30 mg Cap-DR) famotidine (famotidine 20 mg Tab) fluticasone (fluticasone propionate) furosemide (furosemide 20 mg Tab) lisinopril (lisinopril 10 mg Tab) loratadine (Claritin) montelukast omeprazole (omeprazole 40 mg Cap-DR) oxycodone (oxyCODONE 5 mg Cap) pregabalin (Lyrica) spironolactone (spironolactone 25 mg Tab) terazosin (terazosin 5 mg Cap) tiotropium (Spiriva Respimat 60 ACT 2.5 mcg/inh inhalation aerosol) verapamil (verapamil 240 mg ER Tab) Procedures Performed Circumcision (05/21/2021), Arthroscopy of knee, Cardiac catheterization, combined right and left heart, Complex reconstruction operations on wrist and hand(excluding arthroplasty), History of hernia repair, Pain management medication delivery system pump. Discharge Vitals Height 175.0 cm Height 175 cm Weight 107.0 kg Weight 107 kg BMI 34.94 What to do next Scheduled Follow-Up Appointments Tuesday 10:45 AM EDT With: Shawn Allen MD, Cintia Hernandez Where: [facility] Patient Educationon 08-19-19 Patient Education Urology Benign Prostatic Hyperplasia Benign prostatic hyperplasia (BPH) is an enlarged prostate gland that is caused by the normal aging process and not by cancer. The prostate is a walnut-sized gland that is involved in the production of semen. It is located in front of the rectum and below the bladder. The bladder stores urine and the urethra is the tube that carries the urine out of the body. The prostate may get bigger as a man gets older. An enlarged prostate can press on the urethra. This can make it harder to pass urine. The build-up of urine in the bladder can cause infection. Back pressure and infection may progress to bladder damage and kidney (renal) failure. What are the causes? This condition is part of a normal aging process. However, not all men develop problems from this condition. If the prostate enlarges away from the urethra, urine flow will not be blocked. If it enlarges toward the urethra and compresses it, there will be problems passing urine. What increases the risk? This condition is more likely to develop in men over the age of 50 years. What are the signs or symptoms? Symptoms of this condition include: ? Getting up often during the night to urinate. ? Needing to urinate frequently during the day. ? Difficulty starting urine flow. ? Decrease in size and strength of your urine stream. ? Leaking (dribbling) after urinating. ? Inability to pass urine. This needs immediate treatment. ? Inability to completely empty your bladder. ? Pain when you pass urine. This is more common if there is also an infection. ? Urinary tract infection (UTI). How is this diagnosed? This condition is diagnosed based on your medical history, a physical exam, and your symptoms. Tests will also be done, such as: ? A post-void bladder scan. This measures any amount of urine that may remain in your bladder after you finish urinating. ? A digital rectal exam. In a rectal exam, your health care provider checks your prostate by putting a lubricated, gloved finger into your rectum to feel the back of your prostate gland. This exam detects the size of your gland and any abnormal lumps or growths. ? An exam of your urine (urinalysis). ? A prostate specific antigen (PSA) screening. This is a blood test used to screen for prostate cancer. ? An ultrasound. This test uses sound waves to electronically produce a picture of your prostate gland. Your health care provider may refer you to a specialist in kidney and prostate diseases (urologist). How is this treated? Once symptoms begin, your health care provider will monitor your condition (active surveillance or watchful waiting). Treatment for this condition will depend on the severity of your condition. Treatment may include: ? Observation and yearly exams. This may be the only treatment needed if your condition and symptoms are mild. ? Medicines to relieve your symptoms, including: ? Medicines to shrink the prostate. ? Medicines to relax the muscle of the prostate. ? Surgery in severe cases. Surgery may include: ? Prostatectomy. In this procedure, the prostate tissue is removed completely through an open incision or with a laparoscope or robotics. ? Transurethral resection of the prostate (TURP). In this procedure, a tool is inserted through the opening at the tip of the penis (urethra). It is used to cut away tissue of the inner core of the prostate. The pieces are removed through the same opening of the penis. This removes the blockage. ? Transurethral incision (TUIP). In this procedure, small cuts are made in the prostate. This lessens the prostate's pressure on the urethra. ? Transurethral microwave thermotherapy (TUMT). This procedure uses microwaves to create heat. The heat destroys and removes a small amount of prostate tissue. ? Transurethral needle ablation (TUNA). This procedure uses radio frequencies to destroy and remove a small amount of prostate tissue. ? Interstitial laser coagulation (ILC). This procedure uses a laser to destroy and remove a small amount of prostate tissue. ? Transurethral electrovaporization (TUVP). This procedure uses electrodes to destroy and remove a small amount of prostate tissue. ? Prostatic urethral lift. This procedure inserts an implant to push the lobes of the prostate away from the urethra. Follow these instructions at home: ? Take [id number] and prescription medicines only as told by your health care provider. ? Monitor your symptoms for any changes. Contact your health care provider with any changes. ? Avoid drinking large amounts of liquid before going to bed or out in public. ? Avoid or reduce how much caffeine or alcohol you drink. ? Give yourself time when you urinate. ? Keep all follow-up visits as told by your health care provider. This is important. Contact a health care provider if: ? You have unexplained back pain. ? Your symptoms do not get better with treatment. ? You d (more content not included)... Normal [facility] Urology Office/Clinic Noteon 08-18-2021 Urology Office/Clinic Note Chief Complaint Pt is here for 2 month follow up to circumcision HPI Staff Kylie is a 70 y.o. male here for 2 month follow up. Previous Dx: BPH w/ urinary obstruction, phimosis, urge incontinence. S/P circumcision done on 05/21/21, cysto/UD done on 04/02/21. Pt states he notices skin going over the top again. Dysuria: denies Incomplete bladder emptying: denies Hematuria: denies Frequency: yes every 1-2 hours Urgency: denies Nocturia: denies Stream: steady stream Leaking: denies Post void dripping: denies Wearing pads/ Depends: denies Urge incontinence: denies Stress incontinence: denies Incontinence without Sensory Awareness: denies Abdominal pain: denies Flank pain: denies Sexual complaints: _ History of Present Illness I have reviewed and verified the staff HPI to be accurate for this encounter. Review of Systems PHQ Score Initial Depression Screen Score: 0 ROS - Provider Constitutional: denies weight loss, denies hot flashes. Eyes: denies eye problems. Gastrointestinal: denies nausea, denies vomiting. Cardiovascular: denies chest pain or angina. Integumentary: no dryness Musculoskeletal: denies musculoskeletal symptoms. ENMT: denies otolaryngeal symptoms. Respiratory: no shortness of breath. Heme/Lymph: denies easy bleeding tendency, denies easy bruising tendency. Psychiatric: no confusion, no anxiety. Genitourinary: denies dysuria, denies hematuria, denies discharge, denies urinary frequency, denies urinary hesitancy, denies nocturia, denies incontinence, denies genital sores, denies decreased libido, and denies erectile dysfunction. Physical Exam Vitals & Measurements HT: 175.0 cm HT: 175 cm WT: 107.0 kg WT: 107 kg BMI: 34.94 General Appearance: alert, no distress, well nourished, well developed male. Genitourinary: normal scrotum, normal testes, normal urethra, normal epididymis, normal vas deferens/spermatic cord. Flank Pain: none. Bladder: nonpalpable. Penis is healed nicely. No evidence of infection. All stitches are now gone. Complete resolution of phimosis. Assessment/Plan Patient status post circumcision. He is healed nicely. He does complain of erectile dysfunction and wants information about a vacuum erection device. This device in the past but states that the device he has now is malfunctioning. We will collect information and for the main information to the patient so he may order a new device. At the follow-up visit in 1 year with PSA blood test. 1. BPH with urinary obstruction (N40.1: Benign prostatic hyperplasia with lower urinary tract symptoms) Patient is taking Terazosin 2mg therapy. Ordered: PSA Total 2. Erectile disorder due to medical condition in male (N52.1: Erectile dysfunction due to diseases classified elsewhere) Patient would like to try another vacuum erection device. We will plan to send him any information we have related to this and order a device if he like. 3. Phimosis (N47.1: Phimosis) Pt had a circumcision on 05/21/21. No urinary complaints at this time. Ordered: PSA Total 4. Urge incontinence (N39.41: Urge incontinence) Mild, Patient does take a diuretic Ordered: PSA Total Orders: acetaminophen-oxycodon e, 1 tab(s), Oral, q6hr Pain 8-10, 210 tab(s), Refill(s) 0, [facility] 175.5, cm, 05/12/21 9:10:00 EDT, Height/Length Dosing, 107.6, kg, 05/12/21 9:10:00 EDT, Weight Dosing Follow-up With When Contact Information Shawn Allen MD, Cintia Hernandez, [facility] [address], [place] [address]- [phone] Additional Instructions: Patient Education Benign Prostatic Hyperplasia I, Liliane Blake _, personally scribed for Dr. Alves on 08/18/2021 11:54:11. . Documentation recorded by the scribe, Liliane Blake, accurately reflects the services(s) I performed and decisions made by me. Authenticated by Dr. Alves on 08/18/2021 12:02:11. Problem List/Past Medical History Ongoing BPH with urinary obstruction Phimosis Urge incontinence Historical No qualifying data Procedure/Surgical History Circumcision (05/21/2021), Arthroscopy of knee, Cardiac catheterization, combined right and left heart, Complex reconstruction operations on wrist and hand(excluding arthroplasty), History of hernia repair, Pain management medication delivery system pump. Medications Albuterol (Eqv-ProAir HFA) 90 mcg/inh inhalation aerosol, 1 puff(s), Inhalation, q6hr, PRN atorvastatin 40 mg Tab, 40 mg= 1 tab(s), Oral, Daily baclofen 10 mg Tab, 10 mg= 1 tab(s), Oral, TID carBAMazepine 100 mg Chew Tab, 100 mg= 1 tab(s), Chewed, BID Claritin, 10 mg, Oral, Daily clopidogrel, 75 mg, Oral, Daily diazepam 5 mg Tab, 5 mg= 1 tab(s), Oral, QID doxycycline, 100 mg, Oral, BID duloxetine 30 mg Cap-DR, 30 mg, Oral, Daily famotidine 20 mg Tab, 20 mg= 1 tab(s), Oral, BID fluticasone propionate, 50 mcg, Inhalation, Bedtime furosemide 20 mg Tab, 20 mg= 1 tab(s), Oral (more content not included)... Normal [facility] Comment on above: Result Comment: Elec tronically Signed By: Cintia Alves Jr., MD\.br\Date and Time Signed: 08/18/21 12:02 EDT\.br\Electronically Co-Signed By: Liliane Blake MA\.br\Date and Time Co-Signed: 08/18/21 11:54 EDT Main OR Intraoperative Recor don 06-10-2021 Main OR Intraoperative Record IntraOp Document Type FT Summary Primary Physician: Cintia Alves Jr., MD Finalized Date/Time: 06/10/21 11:39:18 Pt. Name: KYLIE RUEDA./Sex: 1950 Male Med Rec #: [id number] Physician: Cintia Alves Jr., MD Financial #: [id number] Pt. Type: A Room/Bed: [place] [address] Admit/Disch: 05/21/21 08:27:49 - 05/21/21 13:00:00 Institution: Case Times FT Entry 1 Patient Times In Room 05/21/21 10:02:00 Out Room 05/21/21 10:47:00 Procedure Times Start 05/21/21 10:19:00 Stop 05/21/21 10:44:00 Anesthesia Times Start 05/21/21 10:02:00 Stop 05/21/21 10:47:00 Last Modified By: Marifer Rodriguez RN 05/21/21 10:47:51 General Comments: 05/22/21 Chart opened to review and send charges [facility]oth CSFA Case Attendance FT Entry 1 Entry 2 Entry 3 Case Attendee Darian JOE, Tommy Alves Jr., MD, Cintia Rangel RN, Maira Salazar Role Performed HEATH Surgeon - Primary Bending Shed Worker - Primary Time In 05/21/21 10:02:00 05/21/21 10:02:00 05/21/21 10:02:00 Time Out 05/21/21 10:47:00 05/21/21 10:45:00 05/21/21 10:47:00 Procedure CIRCUMCISION ADULT(.) CIRCUMCISION ADULT(.) CIRCUMCISION ADULT(.) Comments DR SALAZAR SUPERVISING Last Modified By: Michael RN, Marifer Rodriguez RN, Marifer Rodriguez RN, Marifer Young 05/21/21 10:47:53 05/21/21 10:47:53 05/21/21 10:47:53 Entry 4 Entry 5 Entry 6 Case Attendee Michael REED, Marifer Esteves CST, Mimi Alicea CST, Merlyn Baltazar Role Performed Bending Shed Worker - Primary Staff - Other Scrub - Primary Time In 05/21/21 10:02:00 05/21/21 10:02:00 05/21/21 10:02:00 Time Out 05/21/21 10:47:00 05/21/21 10:47:00 05/21/21 10:47:00 Procedure CIRCUMCISION ADULT(.) CIRCUMCISION ADULT(.) CIRCUMCISION ADULT(.) Comments 2nd scrub Last Modified By: Michael RN, Marifer Rodriguez RN, Marifer Rodriguez RN, Marifer Young 05/21/21 10:47:53 05/21/21 10:47:53 05/21/21 10:47:53 Perioperative Protocols FT Pre-Care Text: Implements protective measures prior to operative or invasive procedure, confirms identity before the operative or invasive procedure, verifies operative procedure, surgical site, and laterality Entry 1 Procedure(s) CIRCUMCISION ADULT(.) Patient Identity Birthday, ID Band Verified (select at Check, Patient least 2): Participation Consents / H and P Anesthesia Consent, Operative Site N/A Verified HandP, Surgery/Procedure Marking Verified Consent Surgical Site Yes Laterality Verified n/a Verified Procedure Verified Yes Correct Patient Yes Position Verified Availability Equipment, Medication Prep Dry n/a Verified (If Applicable) PreOp Antibiotic Yes Time Out Tommy Farmer CRNA, Given Participants Shawn Allen MD, Juan Carlos Mccabe RN, Michael Paniagua RN, Danielito Shelton CST, Nixon Leija CST, Merlyn R Time Out Complete 05/21/21 10:08:00 Outcomes Met? Yes Last Modified By: Marifer Rodriguez RN 05/21/21 10:15:31 Post-Care Text: The patient is free from signs and symptoms of injury caused by extraneous objects Allergy Information FT Pre-Care Text: Verifies allergies Entry 1 Allergies Reviewed? Yes Allergies Reviewed Self/Patient With Outcomes Met? Yes Last Modified By: Marifer Rodriguez RN 05/21/21 09:43:31 Post-Care Text: The patient received appropriate medication(s) safely administered during the perioperative period Surgical Procedures FT Entry 1 Procedure Description Procedure CIRCUMCISION ADULT Modifiers . Surgeon Description CIRCUMCISION ADULT Primary Procedure Yes Primary Surgeon Shawn Allen MD, Cintia Hernandez Start 05/21/21 10:19:00 Stop 05/21/21 10:44:00 Anesthesia Type General Surgical Service Urology Wound Class 2 - Clean-Contaminated Last Modified By: Marifer Rodriguez RN 05/21/21 10:47:52 General Case Data FT Pre-Care Text: Classifies surgical wound, implements aseptic technique, initiates traffic control Entry 1 Case Information OR OR 5 FT Case Level Level 2 Wound Class 2 - Clean-Contaminated Specialty Urology ASA Class 3 Preop Diagnosis PHIMOSIS Postop Same As Preop Yes Postop Diagnosis PHIMOSIS Outcomes Met? Yes Last Modified By: Alize Rush CST 05/22/21 09:08:20 Post-Care Text: The patient is free from signs and symptoms of infection Skin Assessment (Pre Procedure) FT Pre-Care Text: Implements protective measures to prevent skin/ tissue injury due to thermal or mechanical sources Evaluates for signs and symptoms of physical injury to skin and tissue Entry 1 Skin Integrity Intact, [place], Warm, and Skin Abnormality No Dry Outcomes Met? Yes Last Modified By: Marifer Rodriguez RN 05/21/21 10:15:51 Post-Care Text: The patient is free from signs and symptoms of injury caused by extraneous objects Patient Positioning FT Pre-Care Text: Identifies physical alterations that require additional precautions for procedure-specific positioning, verifies presence of prosthetics or corrective devices, positions the patient, evaluates the patient for signs and symptoms of injury as a result of positioning Entry 1 Procedure CIRCUMCISION A (more content not included)... Normal [facility] Patient Educationon 06-10-19 Patient Education Urology Circumcision Information Boys are born with a fold of skin that covers the head of the penis (foreskin). This fold of skin is often removed shortly after with a surgery that is called circumcision. A circumcision may be done by health care providers who are involved in care. It may also be done by a specialist who cares for the urinary tract (urologist). Who should be circumcised? The decision to leave the foreskin on or to have it removed is a personal one. It is often based on congregation, social, or cultural beliefs. Circumcision is most often done in the first few days of life, but it may also be done later in life. In general: ? All healthy boys with a normal penis formation can be circumcised in the first few days after . ? Boys who are born early (prematurely) or who are ill should not be circumcised until they are older and stronger. ? Boys with certain deformities of the penis or deformities of the opening of the penis (urethra) should not be circumcised. How is circumcision done? ? The penis and the area around it are cleansed well. ? An injection is given to numb the area. A numbing cream may be applied to the area. ? A special clamp or ring is attached to the penis and used to remove the foreskin. ? The area is then cleansed well again. ? Medicine and gauze are applied to it. What are the benefits of circumcision? When the foreskin is removed: ? The head of the penis is easier to wash. This lowers the risk for odors, swelling, and infection. ? Some men are less likely to: ? Carry the virus that causes genital warts (human papillomavirus or HPV). ? Contract HIV (human immunodeficiency virus). ? Develop cancer of the penis. ? Get urinary infections. ? Develop inflammation of the penis. What are the risks of circumcision? Circumcision is a safe procedure. However, problems may occur, including: ? Infection. ? Bleeding. ? Removal of too much or too little foreskin. This affects the appearance of the penis. ? Irritation and narrowing of the urinary opening. This is usually temporary. ? Scarring of the penis. This may affect the way the penis functions. Summary ? Boys are born with a fold of skin that covers the head of the penis (foreskin). This fold of skin is often removed shortly after with a surgery that is called circumcision. ? When the foreskin is removed, the head of the penis is easier to wash and keep clean. ? Some men who are circumcised are less likely to carry viruses, get urinary infections, or develop cancer of the penis. ? Circumcision is a safe procedure. However, problems may occur, including infection, bleeding, scarring, and irritation and narrowing of the opening of the penis. This information is not intended to replace advice given to you by your health care provider. Make sure you discuss any questions you have with your health care provider. Document Released: 01/28/2001 Document Revised: 07/17/2018 Document Reviewed: 07/17/2018 [employer] Patient Education ? 2019 [employer] [facility] Urology Office/Clinic Noteon 06-09-2021 Urology Office/Clinic Note Chief Complaint 70-year-old male status post recent circumcision on 05/21/2021. He had no postoperative complications and states he is doing quite well at this point. HPI Staff Kylie is here today for a follow up to circumcision done on 05/21/21. Previous DX: BPH with urinary obstruction,Phimosis, urge incontinence. Pt states he has had no problem. Pt is currently taking terazosin 5mg qd. Dysuria: _Denies Incomplete bladder emptying: _Denies Hematuria: _Denies Frequency: _1-2 hours Urgency: _varies on water intake Nocturia: _Denies Stream: _steady stream Leaking: _Yes Post void dripping: _Denies Wearing pads/ Depends: _Not at the moment Urge incontinence: _yes sometimes Stress incontinence: _Denies Incontinence without Sensory Awareness: _Denies Abdominal pain: _Denies Flank pain: _Denies Sexual complaints: _ History of Present Illness I have reviewed and verified the staff HPI to be accurate for this encounter. Review of Systems PHQ Score Initial Depression Screen Score: 0 ROS - Provider Constitutional: denies weight loss, denies hot flashes. Eyes: denies eye problems. Gastrointestinal: denies nausea, denies vomiting. Cardiovascular: denies chest pain or angina. Integumentary: no dryness Musculoskeletal: denies musculoskeletal symptoms. ENMT: denies otolaryngeal symptoms. Respiratory: no shortness of breath. Heme/Lymph: denies easy bleeding tendency, denies easy bruising tendency. Psychiatric: no confusion, no anxiety. Genitourinary: denies dysuria, denies hematuria, denies discharge, denies urinary frequency, denies urinary hesitancy, denies nocturia, denies incontinence, denies genital sores, denies decreased libido, and denies erectile dysfunction. Physical Exam Vitals & Measurements HR: 63(Peripheral) RR: 16 BP: 120/76 HT: 175.5 cm HT: 175.5 cm WT: 107.6 kg WT: 107.6 kg BMI: 34.93 General Appearance: alert, no distress, well nourished, well developed male. Genitourinary: normal scrotum, normal testes, normal urethra, normal epididymis, normal vas deferens/spermatic cord. The circumcision is healing nicely. The foreskin pulled back easily. There is a stitch is in place. There is no evidence of infection, drainage or dehiscence. Flank Pain: none. Bladder: nonpalpable. Assessment/Plan Postoperative circumcision doing well. No evidence of infection is noted. The foreskin retracts easily. The stitches are still in place. There is no erythema, drainage or evidence of infection. Patient has been instructed continue with showers or he may use a tub bath if he prefers. We will plan to see him back in the office in 2 months. He has been instructed to contact office if he has any problems healing in this area. 1. Phimosis (N47.1: Phimosis) Pt had a circumcision on 05/21/21. No urinary complaints at this time. 2. BPH with urinary obstruction (N40.1: Benign prostatic hyperplasia with lower urinary tract symptoms) Patient is taking Terazosin 2mg therapy. Patient unable to give UA sample today. 3. Urge incontinence (N39.41: Urge incontinence) Mild, Patient does take a diuretic. 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 Alves on 06/09/2021 11:48:51. . Documentation recorded by the Billy qureshi, accurately reflects the services(s) I performed and decisions made by me. Authenticated by Dr. Alves on 06/09/2021 11:51:34. Problem List/Past Medical History Ongoing BPH with urinary obstruction Phimosis Urge incontinence Historical No qualifying data Procedure/Surgical History Circumcision (05/21/2021), Arthroscopy of knee, Cardiac catheterization, combined right and left heart, Complex reconstruction operations on wrist and hand(excluding arthroplasty), History of hernia repair, Pain management medication delivery system pump. Medications Albuterol (Eqv-ProAir HFA) 90 mcg/inh inhalation aerosol, 1 puff(s), Inhalation, q6hr, PRN atorvastatin 40 mg Tab, 40 mg= 1 tab(s), Oral, Daily baclofen 10 mg Tab, 10 mg= 1 tab(s), Oral, TID carBAMazepine 100 mg Chew Tab, 100 mg= 1 tab(s), Chewed, BID Claritin, 10 mg, Oral, Daily clopidogrel, 75 mg, Oral, Daily diazepam 5 mg Tab, 5 mg= 1 tab(s), Oral, QID doxycycline, 100 mg, Oral, BID duloxetine 30 mg Cap-DR, 30 mg, Oral, Daily famotidine 20 mg Tab, 20 mg= 1 tab(s), Oral, BID fluticasone propionate, 50 mcg, Inhalation, Bedtime furosemide 20 mg Tab, 20 mg= 1 tab(s), Oral, Daily lisinopril 10 mg Tab, 10 mg= 1 tab(s), Oral, Daily, PRN Lyrica, 100 mg, Oral, BID montelukast, 10 mg, Oral, Daily omeprazole 40 mg Cap-DR, 40 mg= 1 cap(s), Oral, Daily o (more content not included)... Normal [facility] Comment on above: Result Comment: Elec tronically Signed By: Shawn Allen MD, Cintia Hernandez\.br\Date and Time Signed: 06/09/21 11:51 EDT\.br\Electronically Co-Signed By: Billy Bell\.br\Date and Time Co-Signed: 06/09/21 11:49 EDT IntraOperative Documentson 0 06-02-2021 IntraOperative Documents [id number] 0CD:127 Normal [facility] Coding Summary.on 05-28-2021 Coding Summary. CD:[id number] Gh 0bWw+PGhlYWQ+PV9VVISgM 42uaOZfuF8KK0jWBY6GYMK VPZXHWC4PXJ8uzVS0JDsjR 2VybiAv XbrztWFuLG69VOa0VXA3cE igVHdifP4yxFFkR0i6ZqTs LU13vB39PCxoFRWyYqX1Ky ZpbjsgbWFy Z8nyEeMhhBSyDzx+PHRhYm xlIHdpZHRoPScxMDAlJyBz iMcrWL2sVq2qFWFaRSSwkQ xhcHNlOiBj k5kyKNGiCYssSN1eoUfjD3 TkxGC2IVClf3p5Jl65ySK+ VXWrHKB7gQxbPBkir159Lu Vdx7jbAQA5 bKLoAOywANB8T12xb2F6LV XbBXAhCEC9wOA9bD0mtQvs viblO6WpkIJhTeY4LYP7tG BzbH5hxJiz myxnuA4eNqw+I64LBO7EDS ILAI6QNrh5R9ZgLrnqrZK+ JB19KMIlSL46bSEkgPWxp0 dtbMz6OdRm DTThNKG0fQqgUTepi1VoZU YhP88hmUYiz0E4RBNduVmn sCMfPmBgvRQ3dW8qJNvrpl mjo4gjoigc Cnhey4jrqb86iA11Y75lWR huQNNnXAM9HZQsQROchRaa fq4cjA1cAn0+XCskp9kif5 oyqQi7VhSk RDZfgiBsjQnoQNA8y4XzNd 16J4CzdCqfn6XvUzt5iz63 wXTyt1W8bCJ5ULovUATuqM 7oGVtiJiP0 HYGfWdGbwK97rJRcKAjoFb 8yaQnvoKmgMM1cQTVvxwbw QEKzmP1dIIAfzNYuvPkpGP 4wNTBpbjtm a188BkBsOBU7HNIceITbH6 XbjY1jNzXlQBQxLEZkM7Lg bDApNGhcY137MQjpHpG2SW KqpwWzB8Ez BAAhjGlzZwK5k7B6Lt6Kn1 NytdnqOPY2UJjaCBS3DmY5 WyEnOfB7L8RzHon7VIYfsJ viRJ6xW8Et KGTuxocgafuqnDM2ILFnVN FipQ90oZTsYTjsXt9mk4F8 r055TNCcGHTlgA69Gy0qpE ogMTBwdCBU tT7cpzaqs6aicteaAdZrLC WoJIy3IFt6WJFwvFyiTvMp EPA1LqJ1EAD9kQLnhQ0dlZ zivllryJ0b Oyc+G29kjZ7bJQE6AVA7uf gxPYDurhLkNG71VT52R2Br PjwvdGFibGU+PGRpdiBzdH rlFZ6nCiTy q6jtg2XeQKtaU3QrAYXrLT qpKtf1HPWvWTA3hFG0qA4o KALtPDcii7H7hZA3V1Vfxf Ktsi6hg9bb EWOcFNubC78naRGsk3R6JF CekIH2KUOiwSvaLcTxrN62 Oyc+TXWqqXyor8TiRqdsn1 tfh0vcsOm7 ZsWrNOPbjbLrdJghVOB7q3 IxLm42P90ePFnxBJDeVRZe JNHwFHTqhKjket9pxR6dRl 8+PGNvbCB3 kUY6dQ4iJWBcQjH0AVyzS7 88RgBtaRZvNyvua0cam5es bDo2LcJzNSXnygGhwEisCU B5j6PfNs11 F70wPMukOOPsINYcEHNlRD DqhNpuip0wkC2cIj7+PC9j g9uyml31gN82tZR+PHRkIH C8zEmrRYgb TXTxoD3gNOajVlW5OVGhCa BuaE22nZEqJDstMh2npEuv mBofKF4lCDZohilgw029Qt Amn2ykFERz hUNtKUunTFX8K99iu3B0BW XqCTAqMSZ2rIJ1dD2cnJnl bjogbGVmdDsgdmVydGljYW zhEMuhJ205 IHRvcDsnPlBhdGllbnQgTm PaVAd7H5PzRgo6FYMpeTqv OD7gsUHaZCocWp5djOmobS peOK2uHUZu ftayf758PaDfy5wnKQOftK ZgUNtwHQM0Y11wf3W0FWYr PPBfTOH0sGY8cA5faNebjg ogbGVmdDsg ekGihKynMZrkQWgvD308YH RvcDsnPkJpcnRoIERhdGU6 AU93KL37cOEsc3U1hIH5P5 BhZGRpbmct esjpgJH1ANLeVCFtiY98Vz 3evAnhKh4oBOLpZOW3KAXi yTUxI5OphC0fTuHvCLRdFB CzB1DipRGv TJwcI933XTuwAmC2WWUqbu WcV4PnDZQnlBlsEgT2x7P0 Pe4NE4K7VS51HH06wWQfb9 O9ePM4C5Mc ZWMtdvlbnigabXE9KJUjQL IvsX48Sp3hpKsgCo7xMVRx USJ6PWJtlIYsQ2NzwG0rKu AjMDAwMDAw P5ObdCWcAVygR783GZqxLh S4KGNubbInJ7ZoSQPyqPjd RgJ5f1R4Ur1LEVm0IM11NQ 92hFZte5I1 wMW1N8FhMXNzuanamnccjF P5AHDzIAOnmC19Ki9epBnt Sq2lNDPrMYF9DKQwyAKhP8 ZgxM0kUtTp TFKyWFOaY7HwkCBsCUohB7 67NByuWhF3THQdleDbM4Zx PMXytBmsEeT4t4G8Gw1HAH HzQZ09SHZ6 rEV6PV47JT07Y6KbJkopdK FibGU+PHRhYmxlIHdpZHRo HBduOGDbRrHcfOpvQB2jLc 9yZGVyLWNv zPkhtMYjIcHlr2idNCYpTD wyPP5dcEwtJ3KkcGF8BUSh n1g2Es04Z52cD6ZtyPC+PG UjbRM9rEX3 mM4gKcOqVeJ9CCltX255Ly DnvSLbWyfbx1evc0ehpCx5 VqJ6XQVzgwAogYfdKTT2b1 MkDh08I82q IHdpZHRoPSIxNSUiIHZhbG fkwn4pxE0jMl5+PGNvbCB3 tNZ5kH4fVoFeOcR9ZUtmX5 49InRvcCIv Mrtof7mdy1bwsMl7NxDkOQ MghiXflYzsOBM6i8AmSh70 G4IcwOohk5EvFed6gc02cI Xvk5X0tLD2 C5IuLHGdepnikCVowPovDK 6uFYYoiciyAWHtzQ8oYDGt W7w4GpJgYkB1YEneI7Ajya G9ZVLhhCPe GPfnCRH9E65cz1X1MMPdSF IsKKD6zFQ0hH8teXxmuxsk bGVmdDsgdmVydGljYWwtYW gjA969YIHa jSnrWLMxpN7wJYIaqQJnpQ aaML4yIYAmoajnFbFPNknK LhAgEPAKKn2FNS29HD15kH Fci2G7yUA9 G4MwAXQzdliiqfkqvCJ6MA MgUUSxyS48mUIqPNxgAt8j e2F0h758RVHaXLTkiC39Mk 9udDogMTBw kZUIlD0eiqgwt0cvfmstGu AuNBGwFOa2MSp3UJBbiEsh WcIzAKX2UbG7ZXM7lOFsiU 1hbGlnbjog uC2yDhd+EMuqJPKfTZo8QR wvdGQ+RYWnKXS0cEwgZEqk WMKluO1uYOSiB8n7FhOiWl S2MEsfK2Ho KSXsvobgPc10lU0zGsJmZt O3XBnsO2HumcJ5FXJhwOYs YEbaAYP4S50vy1S4FUTeGG EgGLX6xUU4 uL5fwMagpjywdPAbuXoxyz SzwFnbBOmfLZyuE364CCMr xCdkIccvOLlfSXHbRL52SE 96kNJkv2Q8 wZM4N0OjOURtitogrjuzpA Y5KABzXPCeaF36dMBjBSkg Cg9gu3Q8t567OLGxFUAwtN 01Am3tmPne QFMmvGTPoU4cwyorf1ziqe cbMlSpEYNyWNe0QBe0NKVx jUekCrEoNYI3JfJ6QCZ0fX FgtD7ghWum ivhbxO9jNxz+TWFsZTwvdG Q+VFDiBNA5sCfgQYryDSIa dT6rSWBaS0n2JhOkJaX0GO fjV8WbEKVl lpyxNu33mL6mOkVuQxT1HG hgK0MkuuB7PKZsxUBcJTwd CVH5Q02ad1G5SASvGKCoSP A1sCU6nS2g bGlnbjogbGVmdDsgdmVydG ylHDrgHSbtT680WQJrlUxw MtEnXyAnKWPmxukxP3WtPQ ZBUBurG9Fl R6XbwCxkeZR+EU14ls05A1 TiUbvtNqy8JXScMMH9gBL3 sP7gSLVuCGnsf6E2eVB5A9 SvvaUykb7v f3gqDWEgNFbdQ96ysGFir9 O5DLJbpOE9TCDcyTmgIzYr bU41Uch+GPHrwXrec0TxRk dsy9ycz7xn iSe2CdAoEPSvcaUjjIgwUD Y6k6QuBz33Y86tXWhbMXVe IGBxUGYfFUCckNfmez9wnJ 9wIi8+PGNv rCU6zNC0yR5rHeQsRqJ2AD vyP802LdSbsJMpWabxg1gp a4uetGa5IuUmGTRrwqHjjE haUJJ9l9Ie It49O1ZafEudv9TfPle7by 95eFVmk5G3bKM9L3RyXMAv zzkngOBaaGreLU9bTFSfgo byKDLifY7d UACvE6y9DeIzWeW3LQikR1 GrzbM4GGZmcZIwWFDleQAO gW6gxvgml0jrvaqgEdVcAM MuDIc6LOv5 SFIqiEdqVrXxTUQ7JjU5JC H2mYOynI8qnLrgfdvxmJ6g Oyc+IZb7j2txsFHqXG3ngO Q7VR20FN46 wUIjv8S3gTZ1I2XuAWVuud vexqdovCZ8TCIwADSzwP30 Yz9ntOmwVo9iGPHqWIV3RJ DdcQDdR3Ne pW7lJzJqZDRcWCBeQ9EyiX EdBPwyL328ZXjiWvS4JMNz ayOlU3UvEWAyvBerXhX1x4 Q2Sy9FRQ84 ZX64JN03yMQvz7U1tUQ2B9 LcTNZwzmbwpjqxkFD6HXJt ZUEvzR28Tx0diWvlUa1xNL IfESD4XZLo kAMwJ0IczS0uKqCgNNJeNK AlD5CctJBlGYjfW760MLfh OxA5LLTsrvNeB6XlOEMduE rgSwJ6r1F4 Ol7ZCj94HH91XT37fFRnr2 S4yZJ8C1MxLIVkdricqtzj aOQ6DLFqFCXdxZ32Nl3olF mbBr0rCSVv KUJ7LVGmaEQzG6HnqZ1wGs GxXZEyXKQpD3ItxRJyMGwm W765KTwfVeU7VBBtknPiZ0 FsLWFsaWdu HqP8k7G1Gf4YNOwxgny4H4 RkPjwvdHI+MU46CLGtNU58 cDSbhHRcv3mheGb3HyMaMB YsIEL1hQiz PSdi (more content not included)... Normal [facility] Progress Note-Physicianon Progress Note-Physician Patient: KYLIE RUEDA Age: 70 years Sex: Male : 1950 Associated Diagnoses: None Author: Rhys Salazar Jr, DO Postoperative Information Post Operative Note: Post Anesthesia Care Unit. Anesthetic utilized: General. Health Status Allergies: Allergic Reactions (Selected) Severity Not Documented Contrast media (iodine-based)- Anaphylaxis. Problem list: All Problems BPH with urinary obstruction / SNOMED CT 4329109790 / Confirmed Back injury / SNOMED CT 8555795354 / Confirmed Complaint of insomnia / SNOMED CT 712246080 / Confirmed Phimosis / SNOMED CT 7164885849 / Confirmed Urge incontinence / SNOMED CT 455929043 / Confirmed Resolved: CVA (cerebrovascular accident) / SNOMED CT 150548458 Resolved: Acid reflux / SNOMED CT 855184106 Resolved: Hx of shortness of breath / SNOMED CT 7324082434 Resolved: High blood cholesterol level / SNOMED CT 09727610 Physical Examination Vital Signs 05/21/2021 11:25 EDT Heart Rate Monitored 73 bpm Respiratory Rate 18 br/min Systolic Blood Pressure 147 mmHg HI Diastolic Blood Pressure 74 mmHg Blood Pressure Location Right arm Mean Arterial Pressure, Monitered 99 mmHg SpO2 95 % BP/Pulse Patient Position Supine 05/21/2021 11:14 EDT Temperature Axillary In Error DegC (In Error) Temperature Temporal Artery 36.8 DegC Heart Rate Monitored 74 bpm Respiratory Rate Monitored 14 br/min Systolic Blood Pressure 142 mmHg HI Diastolic Blood Pressure 85 mmHg Blood Pressure Location Right arm SpO2 94 % 05/21/2021 11:04 EDT Heart Rate Monitored 78 bpm Respiratory Rate Monitored 12 br/min Systolic Blood Pressure 146 mmHg HI Diastolic Blood Pressure 80 mmHg Blood Pressure Location Right arm SpO2 93 % 05/21/2021 10:59 EDT Heart Rate Monitored 80 bpm Respiratory Rate Monitored 15 br/min Systolic Blood Pressure 146 mmHg HI Diastolic Blood Pressure 80 mmHg Blood Pressure Location Right arm SpO2 95 % 05/21/2021 10:54 EDT Heart Rate Monitored 80 bpm Respiratory Rate Monitored 13 br/min Systolic Blood Pressure 137 mmHg Diastolic Blood Pressure 85 mmHg Blood Pressure Location Right arm SpO2 95 % 05/21/2021 10:49 EDT Temperature Axillary 36.4 DegC Heart Rate Monitored 74 bpm Respiratory Rate Monitored 15 br/min Systolic Blood Pressure 138 mmHg Diastolic Blood Pressure 77 mmHg Blood Pressure Location Right arm SpO2 99 % 05/21/2021 10:45 EDT Heart Rate Monitored 76 bpm bpm Respiratory Rate 17 br/min br/min SpO2 100 % % 05/21/2021 10:44 EDT Systolic Blood Pressure 121 mmHg mmHg Diastolic Blood Pressure 77 mmHg mmHg 05/21/2021 10:40 EDT Heart Rate Monitored 62 bpm bpm Respiratory Rate 11 br/min br/min Systolic Blood Pressure 104 mmHg mmHg Diastolic Blood Pressure 61 mmHg mmHg SpO2 99 % % 05/21/2021 10:36 EDT Systolic Blood Pressure 103 mmHg mmHg Diastolic Blood Pressure 62 mmHg mmHg 05/21/2021 10:35 EDT Heart Rate Monitored 59 bpm bpm Respiratory Rate 11 br/min br/min SpO2 99 % % 05/21/2021 10:32 EDT Systolic Blood Pressure 100 mmHg mmHg Diastolic Blood Pressure 61 mmHg mmHg 05/21/2021 10:30 EDT Heart Rate Monitored 58 bpm bpm Respiratory Rate 11 br/min br/min SpO2 99 % % 05/21/2021 10:28 EDT Systolic Blood Pressure 101 mmHg mmHg Diastolic Blood Pressure 61 mmHg mmHg 05/21/2021 10:25 EDT Heart Rate Monitored 56 bpm bpm Respiratory Rate 12 br/min br/min SpO2 99 % % 05/21/2021 10:24 EDT Systolic Blood Pressure 105 mmHg mmHg Diastolic Blood Pressure 62 mmHg mmHg 05/21/2021 10:20 EDT Heart Rate Monitored 55 bpm bpm Respiratory Rate 12 br/min br/min Systolic Blood Pressure 101 mmHg mmHg Diastolic Blood Pressure 62 mmHg mmHg SpO2 99 % % 05/21/2021 10:16 EDT Systolic Blood Pressure 90 mmHg mmHg Diastolic Blood Pressure 56 mmHg mmHg 05/21/2021 10:15 EDT Heart Rate Monitored 50 bpm bpm Respiratory Rate 11 br/min br/min SpO2 99 % % 05/21/2021 10:12 EDT Systolic Blood Pressure 90 mmHg mmHg Diastolic Blood Pressure 56 mmHg mmHg 05/21/2021 10:10 EDT Heart Rate Monitored 53 bpm bpm Respiratory Rate 7 br/min br/min SpO2 94 % % 05/21/2021 10:08 EDT Systolic Blood Pressure 105 mmHg mmHg Diastolic Blood Pressure 70 mmHg mmHg 05/21/2021 10:05 EDT Heart Rate Monitored 66 bpm bpm Respiratory Rate 1 br/min br/min SpO2 93 % % 05/21/2021 10:03 EDT Systolic Blood Pressure 147 mmHg mmHg Diastolic Blood Pressure 82 mmHg mmHg 05/21/2021 9:50 EDT Respiratory Rate 2 br/min br/min 05/21/2021 8:47 EDT Temperature Oral 36.8 DegC Heart Rate Monitored 80 bpm Systolic Blood Pressure 153 mmHg HI Diastolic Blood Pressure 77 mmHg Mean Arterial Pressure, Monitered 102 mmHg SpO2 99 % 05/21/2021 8:47 EDT Apical Heart Rate 84 bpm 05/21/2021 8:45 EDT Heart Rate Monitored 80 bpm Respiratory Rate 18 br/min Systolic Blood Pressure 172 mmHg HI Diastolic Blood Pressure 89 mmHg Blood Pressure Location Right arm Mean Arterial Pressure, Monitered 116 mmHg SpO2 99 % BP/Pulse Patient Position Supine Vital Signs (last 24 hr (more content not included)... Normal [facility] Comment on above: Result Comment: Elec tronically Signed By: Rhys Slaazar Jr, DO\.br\Date and Time Signed: 05/27/21 09:35 EDT Progress Note-Physician Patient: KYLIE RUEDA Age: 70 years Sex: Male : 1950 Associated Diagnoses: None Author: Rhys Salazar Jr, DO Preoperative Information Time patient last ate or drank:=== (npo 8 hours) Anesthesia history: Patient history: No prior anesthesia problems. Re-evaluation prior to induction: Completed, Initial evaluation reviewed. Review of Systems Respiratory: No shortness of breath. Cardiovascular: No chest pain. Hematology/Lymphatics: No bruising tendency, No bleeding tendency. Health Status Allergies: Allergic Reactions (All) Severity Not Documented Contrast media (iodine-based)- Anaphylaxis. Current medications: (Selected) Inpatient Medications Ordered Lactated Ringers IV Abbey 1000 mL 1,000 mL: 1,000 mL, IV, 150 mL/hr, Routine, Start date 05/21/21 9:00:00 EDT, 6.7 hour(s), Total volume (mL): 1,000, 107.6 kg, 2.29, m2 cefazolin additive + premix generic diluent 100 mL: 2 gram = 100 mL, Soln-IV, IV Piggyback, Once, Stop date 05/21/21 9:00:00 EDT, Routine, Start date 05/21/21 9:00:00 EDT, 200 mL/hr, Infuse over 30 minute(s) Prescriptions Prescribed terazosin 5 mg Cap: 5 mg = 1 cap(s), Oral, Once a day (at bedtime), # 30 cap(s), Refills(s) 6, Pharmacy: [facility], 181, cm, 04/28/21 12:55:00 EDT, Height/Length Dosing, 115, kg, 04/28/21 12:55:00 EDT, Weight Dosing Documented Medications Documented Albuterol (Eqv-ProAir HFA) 90 mcg/inh inhalation aerosol: 1 puff(s), Inhalation, q6hr as needed for wheezing, Refill(s) 0 Claritin: 10 mg, Oral, Daily, Refills(s) 0, Allergy symptoms Lyrica: 100 mg, Oral, BID, Refills(s) 0, Pain Spiriva Respimat 60 ACT 2.5 mcg/inh inhalation aerosol: = 2 puff(s), Inhalation, Daily, PRN Shortness of breath or wheezing, Refills(s) 0 atorvastatin 40 mg Tab: 40 mg = 1 tab(s), Oral, Daily, Refills(s) 0, High cholesterol baclofen 10 mg Tab: 10 mg = 1 tab(s), Oral, TID, Refills(s) 0, Other (see comment) carBAMazepine 100 mg Chew Tab: 100 mg = 1 tab(s), Chewed, BID, Refills(s) 0 clopidogrel: 75 mg, Oral, Daily, Refills(s) 0, Blood Thinner diazepam 5 mg Tab: 5 mg = 1 tab(s), Oral, QID, Refills(s) 0, Anxiety doxycycline: 100 mg, Oral, BID, for 10 days for sinuses, Refills(s) 0, Infection or prophylaxis for antibiotics duloxetine 30 mg Cap-DR: 30 mg, Oral, Daily, Refills(s) 0, Depression famotidine 20 mg Tab: 20 mg = 1 tab(s), Oral, BID, Refills(s) 0, Control of stomach acid fluticasone propionate: 50 mcg, Inhalation, Bedtime, Refills(s) 0, Allergy symptoms furosemide 20 mg Tab: 20 mg = 1 tab(s), Oral, Daily, Refills(s) 0, diuretic/water pill lisinopril 10 mg Tab: 10 mg = 1 tab(s), Oral, Daily, PRN Other (see comment), Refills(s) 0 montelukast: 10 mg, Oral, Daily, Refills(s) 0, Allergy symptoms omeprazole 40 mg Cap-DR: 40 mg = 1 cap(s), Oral, Daily, Refills(s) 0, Control of stomach acid oxyCODONE 5 mg Cap: 5 mg = 1 cap(s), Oral, TID, Refills(s) 0, Pain spironolactone 25 mg Tab: 25 mg = 1 tab(s), Oral, Daily, Refills(s) 0, diuretic/water pill verapamil 240 mg ER Tab: 240 mg = 1 tab(s), Oral, qAM, Refills(s) 0, Other (see comment) Problem list: All Problems BPH with urinary obstruction / SNOMED CT 7996988339 / Confirmed Back injury / SNOMED CT 8727378786 / Confirmed Complaint of insomnia / SNOMED CT 988529402 / Confirmed Phimosis / SNOMED CT 9958565989 / Confirmed Urge incontinence / SNOMED CT 315406421 / Confirmed Resolved: CVA (cerebrovascular accident) / SNOMED CT 613479640 Resolved: Acid reflux / SNOMED CT 410173844 Resolved: Hx of shortness of breath / SNOMED CT 6063820802 Resolved: High blood cholesterol level / SNOMED CT 20351608 Histories Past Medical History: No active or resolved past medical history items have been selected or recorded. Family History: No family history items have been selected or recorded. Procedure history: History of hernia repair (4794311697). Arthroscopy of knee (549474624). Complex reconstruction operations on wrist and hand(excluding arthroplasty) (221170229). Cardiac catheterization, combined right and left heart (91960644). Pain management medication delivery system pump (3814646557). Social History Social & Psychosocial Habits Alcohol 05/12/2021 Risk Assessment: Denies Alcohol Use Substance Abuse 05/12/2021 Risk Assessment: Denies Substance Abuse Tobacco 02/24/2021 Tobacco Use: Former smoker, quit more Type: Cigarettes 05/12/2021 Risk Assessment: Denies Tobacco Use . Physical Examination Vital Signs 05/21/2021 8:47 EDT Temperature Oral 36.8 DegC Heart Rate Monitored 80 bpm Systolic Blood Pressure 153 mmHg HI Diastolic Blood Pressure 77 mmHg Mean Arterial Pressure, Monitered 102 mmHg SpO2 99 % 05/21/2021 8:47 EDT Apical Heart Rate 84 bpm 05/21/2021 8:45 EDT Heart Rate Monitored 80 bpm Respiratory Rate 18 br/min Systolic Blood Pressure 172 mmHg HI Diastolic Blood Pressure 89 mmHg Blood Pressure Location Right arm Mean Arterial (more content not included)... [facility] Comment on above: Result Comment: Elec tronically Signed By: Rhys Salazar Jr, DO\.br\Date and Time Signed: 05/27/21 09:32 EDT Postoperative Documentson Postoperative Documents [id number]#1. 00CD:127 [facility] Consent for Anesthesiaon Consent for Anesthesia [id number]#1. 00CD:127 [facility] Consent for Procedure/Surger yon 05-22-2021 Consent for Procedure/Surgery [id number]#1. 00CD:127 [facility] Discharge Instructionson Discharge Instructions [id number]#1. 00CD:127 [facility] IntraOperative Documentson 0 05-22-2021 IntraOperative Documents [id number]#1. 00CD:127 [facility] IntraOperative Documents [id number]#1. 00CD:127 Normal [facility] Preoperative Documentson Preoperative Documents [id number]#1. 00CD:127 Normal [facility] Preoperative Documents [id number]#1. 00CD:127 [facility] Consent for Treatmenton Consent for Treatment [id number]#1.0 0CD:127 Normal [facility] H&P Updateon 05-21-2021 H&P Update [id number]#1 .00CD:127 Normal [facility] Inpatient Patient Summaryon 05-21-2021 Inpatient Patient Summary [address] [address] [facility] Clinical Discharge Instructions PERSON INFORMATION Name: KYLIE RUEDA PHYSICIANS Admitting Physician: Shawn Allen MD, Cintia Hernandez Attending Physician: Cintia Alves Jr., MD PCP: DAVID GARCIA, JENNY Discharge Diagnosis: Phimosis Comment: PATIENT EDUCATION INFORMATION Instructions: Circumcision, Adult, Care After, Bfib-ul-Ogcx; Post Op Patient Instructions - FT (Custom) (CUSTOM) Medication Leaflets: Follow up: With: Address: When: MAURICE MEDINA [address] [place] [address] Qing Haynes. [place], [place] [id number] [facility] () Within 2 to 4 weeks Comments: Postop visit wound check. MEDICATION LIST New Medications [facility], [address] [place], [place] [id number], [phone] acetaminophen-oxycodon e (Percocet 5 mg-325 mg oral tablet) 1 Tablets By Mouth every 6 hours as needed Pain 8-10. Refills: 0. cephalexin (Keflex 500 mg Cap) 1 Capsules By Mouth every 12 hours for 5 Days. Refills: 0. Medications to Continue with No Changes Other Medications albuterol (Albuterol (Eqv-ProAir HFA) 90 mcg/inh inhalation aerosol) 1 Puffs Inhalation every 6 hours as needed as needed for wheezing. atorvastatin (atorvastatin 40 mg Tab) 1 Tablets By Mouth every day. baclofen (baclofen 10 mg Tab) 1 Tablets By Mouth 3 times a day., muscle relaxer carbamazepine (carBAMazepine 100 mg Chew Tab) 1 Tablets Chewed 2 times a day. clopidogrel 75 Milligram By Mouth every day. diazepam (diazepam 5 mg Tab) 1 Tablets By Mouth 4 times a day. doxycycline 100 Milligram By Mouth 2 times a day. for 10 days for sinuses. duloxetine (duloxetine 30 mg Cap-DR) 30 Milligram By Mouth every day. famotidine (famotidine 20 mg Tab) 1 Tablets By Mouth 2 times a day. fluticasone (fluticasone propionate) 50 Microgram Inhalation at bedtime. furosemide (furosemide 20 mg Tab) 1 Tablets By Mouth every day. lisinopril (lisinopril 10 mg Tab) 1 Tablets By Mouth every day as needed Other (see comment)., bp loratadine (Claritin) 10 Milligram By Mouth every day. montelukast 10 Milligram By Mouth every day. omeprazole (omeprazole 40 mg Cap-DR) 1 Capsules By Mouth every day. oxycodone (oxyCODONE 5 mg Cap) 1 Capsules By Mouth 3 times a day. pregabalin (Lyrica) 100 Milligram By Mouth 2 times a day. spironolactone (spironolactone 25 mg Tab) 1 Tablets By Mouth every day. terazosin (terazosin 5 mg Cap) 1 Capsules By Mouth once a day (at bedtime). Refills: 6. tiotropium (Spiriva Respimat 60 ACT 2.5 mcg/inh inhalation aerosol) 2 Puffs Inhalation every day as needed Shortness of breath or wheezing. verapamil (verapamil 240 mg ER Tab) 1 Tablets By Mouth once a day (in the morning)., heart Comment: Normal [facility] Main OR PACU I Recordon 040 Main OR PACU I Record PACU Phase I Docum ent Type FT Summary Primary Physician: Shawn Allen MD, Cintia Hernandez Finalized Date/Time: 05/21/21 11:29:49 Pt. Name: KYLIE RUEDA /Sex: 1950 Male Med Rec #: [id number] Physician: Cintia Alves Jr., MD Financial #: [id number] Pt. Type: A Room/Bed: [place] [address] Admit/Disch: 05/21/21 08:27:49 - Institution: Case Times PACU I FT Pre-Care Text: Identifies barriers to communication and implements measures to provide psychological support Develops individualized plan of care, and ensures continuity of care Maintains patient's dignity and privacy, and maintains patient confidentiality Identifies and reports philosophical, cultural, and spiritual beliefs and values Identifies individual values and wishes concerning care Implements aseptic technique, and administers prescribed antibiotic therapy and immunizing agents as ordered Evaluates postoperative tissue perfusion Implements thermoregulation measures, and monitors body temperature Evaluates postoperative respiratory status Evaluates postoperative cardiac status Evaluates postoperative neurological status Assesses pain control, collaborated in initiating patient-controlled analgesia and implements alternative methods of pain control Verifies allergies, administers prescribed medications and solutions, evaluates response to medications Entry 1 In PACU I 05/21/21 10:49:00 Discharge from PACU 05/21/21 11:19:00 I Outcomes Met? Yes Last Modified By: Tonja Gómez RN 05/21/21 11:29:28 Post-Care Text: The patient demonstrates knowledge of the expected response to the operative or invasive procedure The patient's care is consistent with the individualized perioperative plan of care The patient's right to privacy is maintained The patient's value system, lifestyle, ethnicity, and culture are considered, respected, and incorporated into the perioperative plan of care The patient participates in decisions affecting his or her perioperative plan of care The patient is free from signs and symptoms of infection The patient has wound/tissue perfusion consistent with or improved from baseline levels established preoperatively The patient is at or returning to normothermia at the conclusion of the immediate postoperative period The patient's respiratory function is consistent with or improved from baseline levels established preoperatively The patient's cardiovascular status is consistent with or improved from baseline levels established preoperatively The patient's cardiovascular status is consistent with or improved from baseline levels established preoperatively The patient demonstrates and/or reports adequate pain control throughout the perioperative period The patient received appropriate medication(s), safely administered during the perioperative period Acuity Level PACU I FT Entry 1 Start Time 05/21/21 10:49:00 Stop Time 05/21/21 11:19:00 Acuity Level Acuity Level I Last Modified By: Tonja Gómez RN 05/21/21 11:29:45 Finalized By: Tonja Gómez RN Document Signatures Signed By: Tonja Gómze RN 05/21/21 11:29 Normal [facility] Main OR PACU II Recordon Main OR PACU II Record PACU Phase II Document Type FT Summary Primary Physician: Cintia Alves Jr., MD Finalized Date/Time: 05/21/21 12:59:05 Pt. Name: RUEDAKYLIE/Sex: 1950 Male Med Rec #: [id number] Physician: Cintia Alves Jr., MD Financial #: [id number] Pt. Type: A Room/Bed: [facility] Admit/Disch: 05/21/21 08:27:49 - Institution: Case Times PACU II FT Pre-Care Text: Identifies barriers to communication and implements measures to provide psychological support and determines knowledge level Develops individualized plan of care, and ensures continuity of care Maintains patient's dignity and privacy, and maintains patient confidentiality Identifies and reports philosophical, cultural, and spiritual beliefs and values Identifies individual values and wishes concerning care administers prescribed antibiotic therapy and immunizing agents as ordered, Evaluates postoperative tissue perfusion Implements thermoregulation measures, and monitors body temperature Evaluates postoperative respiratory status Evaluates postoperative cardiac status Evaluates postoperative neurological status Assesses pain control, collaborated in initiating patient-controlled analgesia and implements alternative methods of pain control Verifies allergies, administers prescribed medications and solutions, evaluates response to medications Entry 1 In PACU II 05/21/21 11:25:00 Discharge from PACU 05/21/21 13:00:00 II Outcomes Met? Yes Last Modified By: Iesha Majano RN 05/21/21 12:59:03 Post-Care Text: The patient demonstrates knowledge of the expected response to the operative or invasive procedure The patient's care is consistent with the individualized perioperative plan of care The patient's right to privacy is maintained The patient's value system, lifestyle, ethnicity, and culture are considered, respected, and incorporated into the perioperative plan of care The patient participates in decisions affecting his or her perioperative plan of care. The patient is free from signs and symptoms of infection The patient has wound/tissue perfusion consistent with or improved from baseline levels established preoperatively The patient is at or returning to normothermia at the conclusion of the immediate postoperative period The patient's respiratory function is consistent with or improved from baseline levels established preoperatively The patient's cardiovascular status is consistent with or improved from baseline levels established preoperatively The patient's neurological status is consistent with or improved from baseline levels established preoperatively The patient demonstrates and/or reports adequate pain control throughout the perioperative period The patient received appropriate medication(s), safely administered during the perioperative period Finalized By: Iesha Majano RN Document Signatures Signed By: Iesha Majano RN 05/21/21 12:59 Normal [facility] Main OR Preoperative Recordo n 05-21-2021 Main OR Preoperative Record PreOp Document Type FT Summary Primary Physician: Cintia Alves Jr., MD Finalized Date/Time: 05/21/21 10:19:02 Pt. Name: KYLIE RUEDA/Sex: 1950 Male Med Rec #: [id number] Physician: Cintia Alves Jr., MD Financial #: [id number] Pt. Type: A Room/Bed: [place] [address] Admit/Disch: 05/21/21 08:27:49 - Institution: Case Times PreOp FT Pre-Care Text: Verifies consent for planned procedure, identifies individual values and wishes concerning care, includes family members in perioperative teaching Entry 1 Patient Times. In Pre Surgery 05/21/21 08:30:00 Out Pre Surgery 05/21/21 10:00:00 Outcomes Met? Yes Last Modified By: Marifer Rodriguez RN 05/21/21 10:18:58 Post-Care Text: The patient participates in decisions affecting his or her perioperative plan of care Finalized By: Marifer Rodriguez RN Document Signatures Signed By: Marifer Rodriguez RN 05/21/21 10:19 [facility] Monitor Recordon 05-21-2021 Monitor Record [id number]#1. 00CD:127 Normal [facility] Monitor Record [id number]#1. 00CD:127 Normal [facility] Operative Reporton 2 Operative Report Patient: KYLIE RUEDA Age: 70 years Sex: Male : 1950 Associated Diagnoses: None Author: Cintia Alves Jr., MD Postoperative Information Procedure: Elective circumcision Date/ Time: 05/21/2021 10:55:00 Preoperative Diagnosis: Phimosis (EKF47-NQ N47.1, Discharge, Medical). Postoperative Diagnosis: Phimosis (QHG10-GQ N47.1, Discharge, Medical). Performed by: Cintia Alves Jr., MD. Findings: This patient is a 70-year-old male with a history of phimosis. He is being brought to the operating suite today for elective circumcision. The procedure, risk, alternatives and potential complications have been discussed with the patient preoperatively. These include but are not limited to bleeding, pain, infection, swelling, anesthetic or cardiovascular problems among others. This patient was brought to the operating suite where he was placed under general anesthesia. He was carefully positioned in the supine manner on the operating table. All pressure points were padded. SCDs were in place and were used throughout the case. After routine prep and drape the base of the penis was infiltrated with a 1% Xylocaine solution for local anesthesia. A marking pen was used to demarcate the line of incision on the shaft of the penis with the foreskin extended. A Bovie with the needle tip was used to make a circumscribing incision. The foreskin was then retracted and another circumscribing incision was made below the berkowitz of the glans on the shaft. Sleeve of skin was raised with both blunt and sharp dissection. The cut ends within reapproximated using simple 3-0 Vicryl stitches. At the conclusion the skin edges were approximated properly. There was minimal bleeding. Dressing consisted of bacitracin ointment Telfa pad and a Anny dressing with tape. Patient was aroused from anesthesia and transported to recovery in good condition. He will be discharged home with instructions to limit his physical activity for the next 2 to 3 days. He may resume his normal activities after that. He may shower but not take a bath for the next week. Home-going medications will include an oral antibiotic and oral pain medication. He will follow up in the office for postop visit in 2 to 4 weeks. Final diagnosis: Phimosis Procedure: Elective circumcision Estimated blood loss: 0 cc Complications: None Cintia Alves Jr., MD, FACS. . Specimens Removed: Foreskin. Estimated Blood Loss: 00 ml. Complications Anesthesia type: General. Normal [facility] Comment on above: Result Comment: Elec tronically Signed By: Shawn Allen MD, Cinita Hernandez\.br\Date and Time Signed: 05/21/21 11:00 EDT Outpatient Surgery Discharge Instructionon 05-21-2021 Outpatient Surgery Discharge Instruction [place] [id number] Patient Discharge Instructions PERSON INFORMATION Name: KYLIE RUEDA Date of : 1950 Current Date: 05/21/2021 10:56:51 PHYSICIANS Admitting Physician: Shawn Allen MD, Cintia Hernandez Discharge Diagnosis: Phimosis KYLIE RUEDA has been given the following list of follow-up instructions, prescriptions, and patient education materials: PATIENT FOLLOW-UP INFORMATION Diet: Regular Discharge Activity: Ambulate as tolerated, Expect mild pain, Activity as tolerated Discharge Restrictions: No driving for 24 hrs Call Your Doctor For: Persistent or heavy bleeding Wound Care Instructions: Remove dressing as instructed Remove Your Dressing In 24 Days Additional Instructions: Use antibiotic ointment at the incision twice a day for the next 3 days. Patient may shower. No tub baths for 1 week. IF UNABLE TO CONTACT YOUR PHYSICIAN AND YOU FEEL IT IS AN EMERGENCY, GO TO THE NEAREST EMERGENCY ROOM OR CALL 911 I MOHIT KYLIE, have received the attached patient education materials/instructions and have verbalized understanding: May we do a follow up call? Yes No I was present when discharge instructions were given Patient Signature Date Clinican/Nurse Signature ___ Date Follow up: With: Address: When: MAUR[facility] [address] [place], [place] [id number] [facility] (1) Within 2 to 4 weeks Comments: Postop visit wound check. Pharmacy Information: You may receive a survey from [employer] asking you to rate your care experience. Your feedback is important and will help us understand what we do well and how we can improve the quality of care we provide to you, your loved ones and our community. It?s an honor to serve you. Thank you for choosing [facility] HERE ARE THE MEDICATION CHANGES THAT OCCURRED DURING YOUR HOSPITAL STAY New Medications [facility], [address] [facility], [place] [id number], [phone] acetaminophen-oxycodon e (Percocet 5 mg-325 mg oral tablet) 1 Tablets By Mouth every 6 hours as needed Pain 8-10. Refills: 0. cephalexin (Keflex 500 mg Cap) 1 Capsules By Mouth every 12 hours for 5 Days. Refills: 0. Medications to Continue with No Changes Other Medications albuterol (Albuterol (Eqv-ProAir HFA) 90 mcg/inh inhalation aerosol) 1 Puffs Inhalation every 6 hours as needed as needed for wheezing. atorvastatin (atorvastatin 40 mg Tab) 1 Tablets By Mouth every day. baclofen (baclofen 10 mg Tab) 1 Tablets By Mouth 3 times a day., muscle relaxer carbamazepine (carBAMazepine 100 mg Chew Tab) 1 Tablets Chewed 2 times a day. clopidogrel 75 Milligram By Mouth every day. diazepam (diazepam 5 mg Tab) 1 Tablets By Mouth 4 times a day. doxycycline 100 Milligram By Mouth 2 times a day. for 10 days for sinuses. duloxetine (duloxetine 30 mg Cap-DR) 30 Milligram By Mouth every day. famotidine (famotidine 20 mg Tab) 1 Tablets By Mouth 2 times a day. fluticasone (fluticasone propionate) 50 Microgram Inhalation at bedtime. furosemide (furosemide 20 mg Tab) 1 Tablets By Mouth every day. lisinopril (lisinopril 10 mg Tab) 1 Tablets By Mouth every day as needed Other (see comment)., bp loratadine (Claritin) 10 Milligram By Mouth every day. montelukast 10 Milligram By Mouth every day. omeprazole (omeprazole 40 mg Cap-DR) 1 Capsules By Mouth every day. oxycodone (oxyCODONE 5 mg Cap) 1 Capsules By Mouth 3 times a day. pregabalin (Lyrica) 100 Milligram By Mouth 2 times a day. spironolactone (spironolactone 25 mg Tab) 1 Tablets By Mouth every day. terazosin (terazosin 5 mg Cap) 1 Capsules By Mouth once a day (at bedtime). Refills: 6. tiotropium (Spiriva Respimat 60 ACT 2.5 mcg/inh inhalation aerosol) 2 Puffs Inhalation every day as needed Shortness of breath or wheezing. verapamil (verapamil 240 mg ER Tab) 1 Tablets By Mouth once a day (in the morning)., heart PATIENT EDUCATION INFORMATION Instructions: Circumcision, Adult, Care After This sheet gives you information about how to care for yourself after your procedure. Your doctor may also give you more specific instructions. If you have problems or questions, contact your doctor. Follow these instructions at home: Cut care ? Follow instructions from your doctor about how to take care of your cut from surgery (incision). Make sure you: ? Wash your hands with soap and water before you change your bandage (dressing). If you cannot use soap and water, use hand signalman. ? Change your bandage as told by your doctor. ? Leave stitches (sutures), s (more content not included)... Normal [facility] Patient Education - Texton 0 05-21-2021 Patient Education - Text Urology Circumcision, Adult, Care After This sheet gives you information about how to care for yourself after your procedure. Your doctor may also give you more specific instructions. If you have problems or questions, contact your doctor. Follow these instructions at home: Cut care ? Follow instructions from your doctor about how to take care of your cut from surgery (incision). Make sure you: ? Wash your hands with soap and water before you change your bandage (dressing). If you cannot use soap and water, use hand signalman. ? Change your bandage as told by your doctor. ? Leave stitches (sutures), skin glue, or skin tape (adhesive) strips in place. They may need to stay in place for 2 weeks or longer. If tape strips get loose and curl up, you may trim the loose edges. Do not remove tape strips completely unless your doctor says it is okay ? Check your cut area every day for signs of infection. Check for: ? More redness, swelling, or pain. ? More fluid or blood. ? Warmth. ? Pus or a bad smell. Bathing ? Do not take baths, swim, or use a hot tub until your doctor says it is okay. Ask your doctor if you can take showers. You may only be allowed to take sponge baths for bathing. ? Do not get your cut area wet during the 24 hours after the procedure, or as long as told by your doctor. ? When you can shower, do not rub the cut area. Gently pat it dry. General instructions ? Avoid heavy lifting, contact sports, biking, or swimming until your doctor says it is okay. ? Do not have sex until your doctor says it is okay. ? Take or apply xmfn-rbj-fbkhjpt and prescription medicines only as told by your doctor. ? Keep all follow-up visits as told by your doctor. This is important. Contact a doctor if: ? Medicine does not help your pain. ? You have more redness, swelling, or pain around your cut. ? You have more fluid or blood coming from your cut. ? Your cut feels warm to the touch. ? You have pus or a bad smell coming from your cut. ? You have a fever. Get help right away if: ? You cannot pee (urinate). ? It hurts to pee. ? Your pain is not helped by medicines. ? There is redness, swelling, and soreness that spreads up the shaft of your penis, your thighs, or your lower belly (abdomen). ? You have bleeding that does not stop when you press on it. Summary ? Follow instructions from your doctor about how to take care of your cut from surgery (incision). ? Check your cut area every day for signs of infection. ? Do not have sex until your doctor says it is okay. This information is not intended to replace advice given to you by your health care provider. Make sure you discuss any questions you have with your health care provider. Document Released: 07/19/2008 Document Revised: 01/13/2018 Document Reviewed: 02/08/2017 [employer] Patient Education ? 2019 [employer] [facility] Consultation Noteon 05-21-19 22 Consultation Note [id number]#1.00 CD:127 [facility] Outside Recordson 05-20-2021 Outside Records [id number]#1. 00CD:127 [facility] RAD - CT Reporton 05-19-2021 RAD - CT Report [id number]#1.00 CD:127 [facility] Coding Summary.on 05-14-2021 Coding Summary. CD:[id number] Gh 0bWw+PGhlYWQ+BU2YXJFoK 75xpJLekF8OQ5pDXY5RHCE LBERQVM2VAK9xlHN6AShyV 2VybiAv AfmyfKWfEK22HWx8WIS6oS leNDcszA6pnWDvM4p2PtRb GQ40mS32CEbeZYQfXwZ6Ca ZpbjsgbWFy A2gwXwMbpRBbYyb+PHRhYm xlIHdpZHRoPScxMDAlJyBz sPdbNL1aWj3nOUGnUVSuuZ xhcHNlOiBj n1htCVIaDVqwGH5xmMmjH8 XywOM3PCUne0i9Wi57wQV+ MKZwMZG7dTnjETtdf513Ba Nuo5mdFVY1 cXCgUNcmBMY0V39fw2H1CJ VgBXGjXLW5nOF9kP6jrQni xrwhP0BysQVkYnA0GDR2nG SzbO9uxZkm uhxoiY0qHyx+Q25XGV7YZJ MFGT9TLwk6G5VtBgaztSH+ ZH31VFLaME94nNHyrMAcs1 oodRu1CiDv WYVwUCX0iFiiCEsor1NdCQ MgP45hoWNlf9N7HDGctNnl hLJbBhCtlFM0lD8hCNfscq tpe5njqbkw Blggg8ddom35aM98B43cGM qtKDJfGGU9FQQuNRWcnNga ff2leE3pSa7+LEutw5ttz4 ettIf8QqEq GBKfqcDolEolPAX0h8WcKr 86R7IfvJzci6OcLla8nc89 pMFho4Z0eSV4LMeiMFKnwN 2dGMwoWdB2 BEJaFqXexP73jFXbUZmcBr 7aeNezsEtyVK2dYPSuliyi XKQlhW2zOUGcbJQreRfvKQ 4wNTBpbjtm u258JhLrKKI4ABNjcMJuT1 GdoW0tQrVyATRkNDJwZ9On wADrTEooV302KQjuCuQ9SV HmgyKgT9Yp KPFnrYtnZxL0a2W6Jl2Qd5 UjyzpaGRH4IGjsVXUvNcMc LeSdBmN2S7CoAaq0PQGcxK kaMG0hB6Cq CYWphissgyqogIF4GOOyRM BjdM63gEAcKRqvHv4iu5V8 r945UGHyNVFceG12Nt6vxG ogMTBwdCBU lY6lvxfnc7kujhirClNyDT NpZMd5UOn7NGOhhIlvObKm POZ6SsH0VKP5zPDyfZ8awG vyrsyatL7u Oyc+V67auC7oCGJ4VYF1wo uoHENdnpPpDE30HZ58F9Vl PjwvdGFibGU+PGRpdiBzdH odAA8sSfOr o0ijf8OfJHriI0QvRUGtYL uiAzx8IABcPKL6mIF5qS1x LLGvZOuzu7Z3jWF9U5Uddh Wdug1wz3ku OZZgMXdbV85blWEfa9L3SB JghPB1XOUnkIogKtWdbL06 Oyc+BFGadVmhq0JgNwlds8 hmb2ggwWo3 DdQhTTJhfzVdjGlhZOT4o2 AsZa29U24gKQjcNRRyGEUc IXBzPKUmvUsfit1npF0xGu 8+PGNvbCB3 jCW7jR4rNBIyBtD9ONyqH0 67MjVmxIJiKjoaf8uqn6vt qNb2ZlCbSPKjphMtsDbaOU S4i7XrSv68 G73lMRavRIBbTOPpVKMrFQ IldWowxw3xiP7lIz9+PC9j y6tnue21hK33bIX+PHRkIH Z7rSsrYYog ITXfaI8sUGueHtC4JRLaBy PlnW04iWVvCCrmTo7cuEiv aKonUA9lHQDoigubx679Wj Ugw6alGDJw fWOoWFdsCSL3E58de4T5MY FaQAHuRJS4bPU7hR9vkQce bjogbGVmdDsgdmVydGljYW qsQRgvE814 IHRvcDsnPlBhdGllbnQgTm ZgMVv9K6MtNql0ZVMbuYgz WF0zxFGqIOrnFv7anTjnvT ggDF9vMKZi kmctd882RvCdb0hqVXRsiF QwFBytHKP9F62mh5P4KIZo ZOUhTYT4dNY0dK1tpJkivf ogbGVmdDsg hoRldEruTEkuXUqnG450CW RvcDsnPkJpcnRoIERhdGU6 GI42MR90nUEdh5N0zCZ6J2 BhZGRpbmct kaygeHC8HWViHGSxjQ32Rl 1quAvbXj0hKAKlTAD3GDBz eJXkW6OjsY3yYiJqRROmML XzJ4KbaTLa DPftT301CGrrScQ2PJFohv AkE9BiTFNfyYedLvZ8c8Q0 Va9WL2Q6ZV44MI96jTEah5 N8nPI2L0Lb PBHeenqjldbgmXU0BPRuJV VffU15Ck7zkFteFu0kWRJi UNO8GUOtsDAiS9WpuR8xPe AjMDAwMDAw Z2RoxZLrNYnyU137TYeaQo N9IYYcsgGnG6FjUNRvzVfz IbY1s4P5Aa0JQVq6LM15LU 53hHYix7L8 dEJ0K6BdUSQrdfztlunlcI I8BPIiPSKeeL17Rc0tbNfs Rv3wIDTzXAP2MEHsaXWvQ6 DceK5qUaBr NKUcHUEdO6EzpPUsGOggT2 09FZnlTtL6MTImctRaJ8Eg MOTjeLhfIsL2z0T0Qm4RXW PgIX36OPU4 fXO4LW45YO93Q1VbEeeohV FibGU+PHRhYmxlIHdpZHRo LHfgEETgXiRzaMloES1xJr 9yZGVyLWNv cJzvaJPuGgVik8fxVKCcGI tcXL8olIxrA6KnyGT5JQEs e3u8Hy88B38eL8CchME+PG UvbCF7wXZ0 hQ5pGuMtCyP5NZlaQ936Vf OuePImPrsrx4vva0eliYf2 QbW9CICznuLbrVqdRHG7x8 AcKp98F75g IHdpZHRoPSIxNSUiIHZhbG osay7czF2lIb6+PGNvbCB3 rVV0oE7wNqLnHtR5LCrgA9 49InRvcCIv Ygqyy6rct1zsrSw0SlEkLX RkprDhzVonLVQ6d9DsUg14 G0YeeWhnx3AeNoc8al52dV Byj1N4dCR5 S3FkNMDqoxtxiSQmqLclXZ 6lNXHstkgtTDFznI3iGEMx K6s7KuBvMiQ3ELxdL4Vtoj I0RHUemTAt FMtoJUB9D10wv5L1SBSkPG LuYBG9lIH2aM8vvJrsjwzo bGVmdDsgdmVydGljYWwtYW leH016VJCj yKeiHWItcH7lNCFowCLpcO mdUO3lIOJvuaptUlKKQdsQ WaUdTRADQv5OPZ54DE36fA Jxv5L7uFQ6 J8QdKSLmwsehumhvdKO4CF WoFCDixB42dBAqYLiyCm9l c2M5d690UVTmIYQphX28Gz 9udDogMTBw fCTPhZ2ejpyix8yluqvkTe TuSSXzMSe9AOu1GFQxjMwj XqLdBVX4WxM6RNB8tKNugD 1hbGlnbjog eU0xXkt+QEumHRVjZJc0JC wvdGQ+HQQbBFA6vNhyXBuy FOUizI0eGTWnR2r3JdUrVh G5ROzpQ2Ql ZSGsbrjiVl98xR8kWhUoTb G9WOnyX3QqmsX9DJQfiXOg OTfvREF3K85tf0A4IXSgZG BxEJZ7aPY0 vQ7wuEvfalzzhIQukAbtgl DjaWtuWKzhYTiuN120GRBw sQfnXhrkUBdaSOHdDR77TT 29uNGqk4P2 uSF4K6CjYDDbmbfiddndlO U0EQIgATDkqL70iIQiYDmc Fc0dy2W1c518JZAtESPbzT 23Wd0trJaf LSXngMUSmO2xxwtgr5udvn rrJfDoWWIsDJp7NNo9YRGt pWymQvVnHHA4QmY6OIJ2xP LhaW3ebBwy gqcsxL4zTye+TWFsZTwvdG Q+SZSoLJJ7tKnvBPdqIKKp iW6gZYVmZ2n2BiAdHkQ6HL buH0RmPZGf mjypPl66sS7gIkZzKgZ4QE vwF1WbgqD4RJYscEZxGUsm KSF1Q86fw4G7OUMhLCJpGA K3jZJ7vC1d bGlnbjogbGVmdDsgdmVydG htCWbuAZmjH608KUDnkUlr Fg29yQXoiRremgK3L8VuIw wvdHI+PC90 AKYfYA47nCYvpOYym9pnvH p6HhAwHBCoKHP0wWdxVOkr z9RjALGaJ16rpVZus3P4KC NvbGxhcHNl MgUvmLA1tN3iKMbrfeucn3 qbwmsyRedzg0tlkz94tA79 L39oWOhcLOJhTMYnHNMzSL SpgDilyx6z kB3kHc3+AOAcaBH1bPV2bT 7kZfMrGsH4AEmqT416GaFh zMIqQrjyv3iiv2xqkOm8Xx IwJSIgdmFs dFdsBSU8h9RxOm78V61dTZ dpZHRoPSIyMCUiIHZhbGln zn2hzY8aDk8+RU7ed2fjrd 28yK43fHO+ RKEeMHR4nMguABfmTRDkxE 9rXPpdUsT2WEDwUnQkgS79 nFBiTLpmOw7atRdehHdxNS 4wNTBpbjtm a389PmAhc6ocJSTkpMSxDU soBWM7G53vj7U4AFHeVXKx TXA7cKJ8rY7fxOtozpcmjG VmdDsgdmVy bFlvIAcjGFibI455AFSxwC olMxHhnRZrG2unahXFFR1e OjwvdGQ+ITPgAIO4vQclPY wpTGTuoG9q FBSiU5c9NkUtXnY0VLauA0 JpujS7OUFykRNeWTYtjNFU iO2kdtwcl1nvwebgLfEgHM WdHNq0GOp5 WOZioRdtTpNtJCX9LgC9CD O0dHOrfN3itDbgxstuzH6z Oyc+RklOOjwvdGQ+PHRkIH P7oQmqSIpx TSNatC7rGMJiS3b8UxYyTn B9YUykA3WjvvC5LNPjhJOx GTWuaOQBoE5jlppnn2rtck ogIzAwMDAw VRd4NFt7MYUwzHfcEuGcDG K6UcE2HNE4hLZreF0smTuf ryziuO9iPbq+TVJOOjwvdG Q+PHRkIHN0 kBjgQVszBQBhfK0uBALpW9 a1SjWdJiC6POygJ5GuvyX6 DOCouCHuNNTaiOJBkC1aba bwo8icdudw IoKvLZVfJJh6XVw7UDQouI qgBfFuGVK6PvR1JUR3jNMt iM8hqCxmudmsxO2iFjn+UG E2KHP9FN37 AJ09N5DuEjvtaFWojUQ+PH RhYmxlIHdpZHRoPScxMDAl PqHhtQgdVF0vIo4zBISiCE NvbGxhcHNl OiBj (more content not included)... Normal [facility] XR Chest 2 Viewson XR Chest 2 Views Exam Date/Time: 05/12/2021 09:39 EDT Reason for Exam: PRE OP Report IMPRESSION: Patchy opacity right upper lobe. Recommend further evaluation with CT of the chest. EXAMINATION: XR Chest 2 Views Clinical History: PRE OP. Comparison: None RESULT: Patchy opacity in the right upper lobe. Bibasilar atelectasis. No pleural effusion. No pneumothorax. Normal pulmonary vascular pattern. Normal cardiomediastinal silhouette. No acute osseous findings. FINAL REPORT Dictated: 05/13/2021 10:08 am Hal Diggs MD Signed (Electronic Signature): 05/13/2021 10:08 am Signed by: Hal Diggs MD Transcribed by: SENA Technologist: WILFRIDO Normal [facility] Auto Diffon 05-12-2021 Basophils/100 WBC (Bld) 0.4 % Normal 0.0-2.0 [facility] Comment on above: Order Comment: Order Added by Discern Expert. Performed By: #### 1 [id number] ####[facility] [id number] [place] [address] Basophils/Leukocytes Auto (Bld) [Pure # fraction] 0.0 E9/L Normal 0.0-0.2 [facility] Comment on above: Order Comment: Order Added by Discern Expert. Performed By: #### 1 [id number] ####[facility] [id number] [place] [address] Eosinophils/100 WBC (Bld) 0.2 % Normal 0.0-8.0 [facility] Comment on above: Order Comment: Order Added by Discern Expert. Performed By: #### 1 [id number] ####[facility] [address] [place] [address] Eosinophils/Leukocyte s Auto (Bld) [Pure # fraction] 0.0 E9/L Normal 0.0-0.5 [facility] Comment on above: Order Comment: Order Added by Discern Expert. Performed By: #### 1 [id number] ####[id number] [place] [address] Lymphocytes/100 WBC (Bld) 15.1 % Normal 14.0-50.0 [facility] Comment on above: Order Comment: Order Added by Discern Expert. Performed By: #### 1 [id number] ####[address] [place] [address] Lymphocytes/Leukocyte s Auto (Bld) [Pure # fraction] 1.8 E9/L Normal 1.0-4.0 [facility] Comment on above: Order Comment: Order Added by Emma Expert. Performed By: #### 1 [id number], [id number] ####[address] [address] Monocytes/100 WBC (Bld) 11.7 % Normal 4.0-14.0 [facility] Comment on above: Order Comment: Order Added by Emma Expert. Performed By: #### 1 [id number], 5901188, 7143511, 2990580, [id number] ####[address] [place] [address] Monocytes/Leukocytes Auto (Bld) [Pure # fraction] 1.4 E9/L High 0.2-1.0 [facility] Comment on above: Order Comment: Order Added by Emma Expert. Performed By: #### 1 [id number], 0364519, 1765911, 8068551, [id number] ####[address] [place] [address] Neutrophils/100 WBC (Bld) 72.6 % Normal 36.0-75.0 [facility] Comment on above: Order Comment: Order Added by Emma Expert. Performed By: #### 1 [id number], 7158177, 8708876, 0762199, [id number] ####[facility] [address] [place] [address] Neutrophils/Leukocyte s Auto (Bld) [Pure # fraction] 8.8 E9/L High 2.0-7.5 [facility] Comment on above: Order Comment: Order Added by Discern Expert. Performed By: #### 1 [id number], 4828974, 5119646, 1164126, 38806231 ####[facility] [address] [place] [address] BMPon 05-12-2021 Anion gap [Moles/Vol] 12 mmol/L Normal 6-16 [facility] Comment on above: Performed By: #### 1 2726228, 9730962, 2768087, 5268601, 28076831 ####[facility] [address] [place] [address] Calcium [Mass/Vol] 9.0 mg/dL Normal 8.9-11.1 [facility] Comment on above: Performed By: #### 1 8156672, 7077288, 5385411, 5935749, 27300846 ####[facility] [address] [place] [address] Chloride [Moles/Vol] 101 mmol/L Normal 101-111 [facility] Comment on above: Performed By: #### 1 7573005, 6560132, 5440006, 0544519, 00936316 ####[facility] [address] [place] [address] CO2 [Moles/Vol] 27 mmol/L Normal 21-31 [facility] Comment on above: Performed By: #### 1 4459532, 7756157, 6924466, 3558760, 44514838 ####[facility] [address] [place] [address] Creatinine [Mass/Vol] 0.9 mg/dL Normal 0.5-1.3 [facility] Comment on above: Performed By: #### 1 8993791, 2872649, 7775769, 4032569, 21838972 ####[facility] [address] [place] [address] Glucose [Mass/Vol] 140 mg/dL Normal 55-199 [facility] Comment on above: Result Comment: If t his glucose result represents a fasting glucose, interpretation should refer to the following reference range: 55-99 mg/dL Performed By: #### 1 3272589, 3693213, 2837311, 5891939, 28206409 ####[facility] [address] [place] [address] Potassium [Moles/Vol] 3.8 mmol/L Normal 3.5-5.3 [facility] Comment on above: Performed By: #### 1 7459659, 5417231, 1026822, 3277417, 13473383 ####[facility] [address] [place] [address] Sodium [Moles/Vol] 136 mmol/L Normal 135-145 [facility] Comment on above: Performed By: #### 1 6382779, 4147608, 5538112, 1442868, 16185737 ####[facility] [address] [place] [address] Urea nitrogen [Mass/Vol] 13 mg/dL Normal 5-21 [facility] Comment on above: Performed By: #### 1 7393979, 2357625, 1146795, 1663331, 43091506 ####[facility] [address] [place] [address] Urea nitrogen/Creatinine [Mass ratio] 14 No Units Normal 10-20 [facility] Comment on above: Performed By: #### 1 4668334, 1998498, 7099615, 8068856, 53319891 ####[facility] [address] [place] [address] CBC w/ Auto Diffon 2 Erythrocyte distribution width (RBC) [Ratio] 13.3 % Normal 10.9-14.2 [facility] Comment on above: Performed By: #### 1 7690660, 1574830, 9470620, 0842773, 85047507 ####[facility] [address] [place] [address] Hematocrit (Bld) [Volume fraction] 31.7 % Low 37.7-49.0 [facility] Comment on above: Performed By: #### 1 4499526, 1951048, 0408184, 5415661, 60853379 ####[address] [place] [address] Hemoglobin (Bld) [Mass/Vol] 11.1 g/dL Low 13.5-17.5 [facility] Comment on above: Performed By: #### 1 7146827, 4532566, 4569132, 1917933, 56482887 ####[address] [address] MCH (RBC) [Entitic mass] 29.9 pg Normal 27.0-34.0 [facility] Comment on above: Performed By: #### 1 5531951, 9636107, 8490811, 2218431, 21107019 ####[address] [address] MCHC (RBC) [Mass/Vol] 34.9 g/dL Normal 31.4-36.0 [facility] Comment on above: Performed By: #### 1 1394783, 2924383, 6002791, 4997049, 57427907 ####[address] [address] MCV (RBC) [Entitic vol] 85.5 fL Normal 80.0-100.0 [facility] Comment on above: Performed By: #### 1 8115192, 0030903, 7055463, 6789675, 67669081 ####[address] [address] Platelet mean volume (Bld) [Entitic vol] 7.5 fL Normal 6.4-10.8 [facility] Comment on above: Performed By: #### 1 1960283, 9289616, 8248563, 8986179, 39466968 ####[facility] [address] [place] [address] Platelets (Bld) [#/Vol] 295.0 E9/L Normal 150.0-500.0 [facility] Comment on above: Performed By: #### 1 6155899, 0096669, 5326901, 0645685, 14724615 ####[facility] [address] [place] [address] RBC (Bld) [#/Vol] 3.7 E12/L Low 4.3-5.9 [facility] Comment on above: Performed By: #### 1 2579494, 9313184, 2074818, 7977894, 96187477 ####[facility] [address] [place] [address] WBC corrected for nucl RBC Auto (Bld) [#/Vol] 12.2 E9/L High 4.0-11.0 [facility] Comment on above: Performed By: #### 1 0932446, 9951448, 2532990, 7869634, 61931819 ####[facility] [address] [place] [address] CHEMISTRYOrdered By: SYSTEM SYSTEM on 05-12-2021 Anion gap [Moles/Vol] 12 mmol/L Normal 6 - 16 mEq/L [facility] Calcium [Mass/Vol] 9.0 mg/dL Normal 8.9 - 11. 1 mg/dL [facility] Chloride [Moles/Vol] 101 mmol/L Normal 101 - 1 11 mmol/L [facility] CO2 [Moles/Vol] 27 mmol/L Normal 21 - 31 mmol/L [facility] Creatinine [Mass/Vol] 0.9 mg/dL Normal 0.5 - 1.3 mg/dL [facility] GFR/1.73 sq M.predicted among blacks MDRD (S/P/Bld) [Vol rate/Area] mL/min/1.73 m2 Normal >=59mL/min/1. 73 m2 [facility] Chem S GFR/1.73 sq M.predicted among non-blacks MDRD (S/P/Bld) [Vol rate/Area] mL/min/1.73 m2 Normal >=59mL/min/1. 73 m2 [facility] [place] S Glucose [Mass/Vol] 140 mg/dL Normal 55 - 199 mg/dL [facility] Potassium [Moles/Vol] 3.8 mmol/L Normal 3.5 - 5.3 mmol/L [facility] Sodium [Moles/Vol] 136 mmol/L Normal 135 - 145 mmol/L [facility] Urea nitrogen [Mass/Vol] 13 mg/dL Normal 5 - 21 mg/dL [facility] Urea nitrogen/Creatinine [Mass ratio] 14 mg/mg Normal 10 - 20 [facility] COAGULATIONOrdered By: Ravi Eric on 05-12-2021 aPTT Coag (PPP) [Time] 31.1 s Normal 25.1 - 36.5 second(s) [facility] [place] Coag INR Coag (PPP) [Relative time] 1.2 {INR} Invalid Interpretation Code [facility] Auto Coag PT Coag (PPP) [Time] 14.9 s High 10.2 - 12.9 second(s) [facility] [place] Coag Consent for Treatmenton 04-15 Consent for Treatment [id number] 0CD:127 Normal [facility] HEMATOLOGYOrdered By: SYSTEM SYSTEM on 05-12-2021 Basophils/100 WBC (Bld) 0.4 % Normal 0.0 - 2.0 % [facility] HemeAutoSS Basophils/Leukocytes Auto (Bld) [Pure # fraction] 0.0 E9/L Normal 0.0 - 0.2 E9/L [facility] HemeAutoSS Eosinophils/100 WBC (Bld) 0.2 % Normal 0.0 - 8.0 % [facility] HemeAutoSS Eosinophils/Leukocyte s Auto (Bld) [Pure # fraction] 0.0 E9/L Normal 0.0 - 0.5 E9/L [facility] HemeAutoSS Lymphocytes/100 WBC (Bld) 15.1 % Normal 14.0 - 50.0 % [facility] HemeAutoSS Lymphocytes/Leukocyte s Auto (Bld) [Pure # fraction] 1.8 E9/L Normal 1.0 - 4.0 E9/L [facility] HemeAutoSS Monocytes/100 WBC (Bld) 11.7 % Normal 4.0 - 14.0 % [facility] HemeAutoSS Monocytes/Leukocytes Auto (Bld) [Pure # fraction] 1.4 E9/L High 0.2 - 1.0 E9/L [facility] HemeAutoSS Neutrophils/100 WBC (Bld) 72.6 % Normal 36.0 - 75.0 % [facility] HemeAutoSS Neutrophils/Leukocyte s Auto (Bld) [Pure # fraction] 8.8 E9/L High 2.0 - 7.5 E9/L [facility] HemeAutoSS HEMATOLOGYOrdered By: Whitley pires on 05-12-2021 Erythrocyte distribution width (RBC) [Ratio] 13.3 % Normal 10.9 - 14.2 % [facility] HemeAutoSS Hematocrit (Bld) [Volume fraction] 31.7 % Low 37.7 - 49.0 % [facility] HemeAutoSS Hemoglobin (Bld) [Mass/Vol] 11.1 g/dL Low 13.5 - 17.5 gm/dL [facility] HemeAutoSS MCH (RBC) [Entitic mass] 29.9 pg Normal 27.0 - 34.0 pg [facility] HemeAutoSS MCHC (RBC) [Mass/Vol] 34.9 g/dL Normal 31.4 - 36.0 gm/dL [facility] HemeAutoSS MCV (RBC) [Entitic vol] 85.5 fL Normal 80.0 - 100.0 fL [facility] HemeAutoSS Platelet mean volume (Bld) [Entitic vol] 7.5 fL Normal 6.4 - 10.8 fL [facility] HemeAutoSS Platelets (Bld) [#/Vol] 295.0 E9/L Normal 150.0 - 500.0 E9/L [facility] HemeAutoSS RBC (Bld) [#/Vol] 3.7 E12/L Low 4.3 - 5.9 E12/L [facility] HemeAutoSS WBC corrected for nucl RBC Auto (Bld) [#/Vol] 12.2 E9/L High 4.0 - 11.0 E9/L [facility] HemeAutoSS PT & PTTon 05-12-2021 aPTT Coag (PPP) [Time] 31.1 second(s) Normal 25.1-36.5 [facility] Comment on above: Result Comment: Hepa rin therapeutic range (represented by Anti-Factor Xa activity of 0.2 - 0.4 U/mL) corresponds to PTT of 56.6 - 109.0 sec. Performed By: #### 1 [id number], 9154588, 9872306, 6519670, 96025641 ####[facility] [address] [place] [address] INR Coag (PPP) [Relative time] 1.2 {INR} Invalid Interpretation Code [facility] Comment on above: Result Comment: INR results are specifically intended to assess patients stabilized on long-term Anticoagulation therapy suggested INR?s ?Less Intensive Anticoagulation? 2.0 ? 3.0 Conventional Range 3.0 ? 4.5 Performed By: #### 1 [id number], 7450223, 9891050, 5255124, 00938965 ####[facility] [address] [place] [address] PT Coag (PPP) [Time] 14.9 second(s) High 10.2-12.9 [facility] Comment on above: Performed By: #### 1 4670346, 8864052, 0373297, 7769228, 56099795 ####[facility] [address] [place] [address] eGFRon 05-12-2021 GFR/1.73 sq M.predicted among blacks MDRD (S/P/Bld) [Vol rate/Area] mL/min/{1.73_m2} Normal >=59 [facility] Comment on above: Order Comment: Order added by Discern Expert. Result Comment: eGFR is race adjusted. AA=. Performed By: #### 1 1333699, 8111822, 5833552, 2831931, 48424078 ####[facility] [address] [place] [address] GFR/1.73 sq M.predicted among non-blacks MDRD (S/P/Bld) [Vol rate/Area] mL/min/{1.73_m2} Normal >=59 [facility] Comment on above: Order Comment: Order added by Discern Expert. Result Comment: Software Integration Developer theron kidney disease could be indicated at eGFR's of less than 60 mL/min/1.73m2. Kidney failure is indicated at less than 15 mL/min/1.73m2. Performed By: #### 1 5121766, 7863295, 2397925, 7990856, 24983527 ####[facility] [address] [place] [address] Ambulatory Visit Summaryon 0 04-28-2021 Ambulatory Visit Summary KYLIE RUEDA :1950 Visit Date:04/28/2021 Ambulatory Visit Instructions Your Diagnosis BPH with urinary obstruction Phimosis Urge incontinence Other obstructive and reflux uropathy Your Care Team Attending Physician - Shawn Allen MD, Cintia Hernandez Primary Care Physician - JENNY CAST MD This Is Your Medications List tamsulosin (tamsulosin 0.4 mg Cap) terazosin (terazosin 2 mg Cap) Contact prescribing physician if questions or concerns albuterol (Albuterol (Eqv-ProAir HFA) 90 mcg/inh inhalation aerosol) atorvastatin (atorvastatin 40 mg Tab) baclofen (baclofen 10 mg Tab) carbamazepine (carBAMazepine 100 mg Chew Tab) ciprofloxacin (Cipro 500 mg Tab) clopidogrel diazepam (diazepam 5 mg Tab) doxycycline duloxetine (duloxetine 30 mg Cap-DR) famotidine (famotidine 20 mg Tab) fluticasone (fluticasone propionate) furosemide (furosemide 20 mg Tab) influenza virus vaccine, inactivated (Fluad Quadrivalent PF ) loratadine (Claritin) montelukast omeprazole (omeprazole 40 mg Cap-DR) oxycodone (oxyCODONE 5 mg Cap) pregabalin (Lyrica) spironolactone (spironolactone 25 mg Tab) tetanus/diphtheria/per tussis, acel (Tdap) (Boostrix (Tdap)) verapamil (verapamil 240 mg ER Tab) Procedures Performed Arthroscopy of knee, History of hernia repair. Discharge Vitals Heart Rate (Peripheral) 82 Respiratory Rate 16 Blood Pressure 130/79 Height 181 cm Height 181.0 cm Weight 115 kg Weight 115.0 kg BMI 35.1 What to do next You Need to Schedule the Following Appointments Follow Up with Shawn Allen MD, Cintia Hernandez, URO When: Why: Will schedule Circumcision Where: [facility] [address], [place] [address]- Medications What How Much When Instructions Unchanged tamsulosin (tamsulosin 0.4 mg Cap) 1 Capsules By Mouth Every day Unchanged terazosin (terazosin 2 mg Cap) By Mouth Once a day (at bedtime) Unchanged albuterol (Albuterol (Eqv-ProAir HFA) 90 mcg/ inh inhalation aerosol) Inhalation Every 6 hours Contact prescribing physician if questions or concerns Unchanged atorvastatin (atorvastatin 40 mg Tab) By Mouth Every day Contact prescribing physician if questions or concerns Unchanged baclofen (baclofen 10 mg Tab) By Mouth 3 times a day Contact prescribing physician if questions or concerns Unchanged carbamazepine (carBAMazepine 100 mg Chew Tab) Chewed 4 times a day Contact prescribing physician if questions or concerns Unchanged ciprofloxacin (Cipro 500 mg Tab) 1 Tablets By Mouth As Directed Contact prescribing physician if questions or concerns Unchanged clopidogrel By Mouth Contact prescribing physician if questions or concerns Unchanged diazepam (diazepam 5 mg Tab) By Mouth 3 times a day Contact prescribing physician if questions or concerns Unchanged doxycycline Contact prescribing physician if questions or concerns Unchanged duloxetine (duloxetine 30 mg Cap-DR) By Mouth 2 times a day Contact prescribing physician if questions or concerns Unchanged famotidine (famotidine 20 mg Tab) By Mouth 2 times a day Contact prescribing physician if questions or concerns Unchanged fluticasone (fluticasone propionate) Inhalation Contact prescribing physician if questions or concerns Unchanged furosemide (furosemide 20 mg Tab) By Mouth Every day Contact prescribing physician if questions or concerns Unchanged influenza virus vaccine, inactivated (Fluad Quadrivalent PF [id number]) Intramuscular Once Contact prescribing physician if questions or concerns Unchanged loratadine (Claritin) Every day Contact prescribing physician if questions or concerns Unchanged montelukast Every day Contact prescribing physician if questions or concerns Unchanged omeprazole (omeprazole 40 mg Cap-DR) By Mouth Every day Contact prescribing physician if questions or concerns Unchanged oxycodone (oxyCODONE 5 mg Cap) By Mouth Every 6 hours Contact prescribing physician if questions or concerns Unchanged pregabalin (Lyrica) By Mouth Contact prescribing physician if questions or concerns Unchanged spironolactone (spironolactone 25 mg Tab) By Mouth Every day Contact prescribing physician if questions or concerns Unchanged tetanus/ diphtheria/ pertussis, acel (Tdap) (Boostrix (Tdap)) Intramuscular Once Contact prescribing physician if questions or concerns Unchanged verapamil (verapamil 240 mg ER Tab) By Mouth Once a day (in the morning) Contact prescribing physician if questions or concerns Allergies contrast media (iodine-based) (Anaphylaxis) Problems Ongoing - Any problem that you are currently receiving treatment for. BPH with urinary obstruction Phimosis Urge incontinence Education Materials Calorie Counting for Weight Loss Calories are units of energy. Your body needs a certain amount of calories from food to keep you going throughout the day. When you eat more calories than your body needs, your body store (more content not included)... Normal [facility] Patient Educationon 04-29-19 Patient Education Nutrition Calorie Counting for Weight Loss Calories are units of energy. Your body needs a certain amount of calories from food to keep you going throughout the day. When you eat more calories than your body needs, your body stores the extra calories as fat. When you eat fewer calories than your body needs, your body german fat to get the energy it needs. Calorie counting means keeping track of how many calories you eat and drink each day. Calorie counting can be helpful if you need to lose weight. If you make sure to eat fewer calories than your body needs, you should lose weight. Ask your health care provider what a healthy weight is for you. For calorie counting to work, you will need to eat the right number of calories in a day in order to lose a healthy amount of weight per week. A dietitian can help you determine how many calories you need in a day and will give you suggestions on how to reach your calorie goal. ? A healthy amount of weight to lose per week is usually 1?2 lb (0.5?0.9 kg). This usually means that your daily calorie intake should be reduced by 500?750 calories. ? Eating 1,200 ? 1,500 calories per day can help most women lose weight. ? Eating 1,500 ? 1,800 calories per day can help most men lose weight. What is my plan? My goal is to have calories per day. If I have this many calories per day, I should lose around pounds per week. What do I need to know about calorie counting? In order to meet your daily calorie goal, you will need to: ? Find out how many calories are in each food you would like to eat. Try to do this before you eat. ? Decide how much of the food you plan to eat. ? Write down what you ate and how many calories it had. Doing this is called keeping a food log. To successfully lose weight, it is important to balance calorie counting with a healthy lifestyle that includes regular activity. Aim for 150 minutes of moderate exercise (such as walking) or 75 minutes of vigorous exercise (such as running) each week. Where do I find calorie information? The number of calories in a food can be found on a Nutrition Facts label. If a food does not have a Nutrition Facts label, try to look up the calories online or ask your dietitian for help. Remember that calories are listed per serving. If you choose to have more than one serving of a food, you will have to multiply the calories per serving by the amount of servings you plan to eat. For example, the label on a package of bread might say that a serving size is 1 slice and that there are 90 calories in a serving. If you eat 1 slice, you will have eaten 90 calories. If you eat 2 slices, you will have eaten 180 calories. How do I keep a food log? Immediately after each meal, record the following information in your food log: ? What you ate. Don't forget to include toppings, sauces, and other extras on the food. ? How much you ate. This can be measured in cups, ounces, or number of items. ? How many calories each food and drink had. ? The total number of calories in the meal. Keep your food log near you, such as in a small notebook in your pocket, or use a mobile santy or website. Some programs will calculate calories for you and show you how many calories you have left for the day to meet your goal. What are some calorie counting tips? ? Use your calories on foods and drinks that will fill you up and not leave you hungry: ? Some examples of foods that fill you up are nuts and nut butters, vegetables, lean proteins, and high-fiber foods like whole grains. High-fiber foods are foods with more than 5 g fiber per serving. ? Drinks such as sodas, specialty coffee drinks, alcohol, and juices have a lot of calories, yet do not fill you up. ? Eat nutritious foods and avoid empty calories. Empty calories are calories you get from foods or beverages that do not have many vitamins or protein, such as candy, sweets, and soda. It is better to have a nutritious high-calorie food (such as an avocado) than a food with few nutrients (such as a bag of chips). ? Know how many calories are in the foods you eat most often. This will help you calculate calorie counts faster. ? Pay attention to calories in drinks. Low-calorie drinks include water and unsweetened drinks. ? Pay attention to nutrition labels for low fat or fat free foods. These foods sometimes have the same amount of calories or more calories than the full fat versions. They also often have added sugar, starch, or salt, to make up for flavor that was removed with the fat. ? Find a way of tracking calories that works for you. Get creative. Try different apps or programs if writing down calories does not work for you. What are some portion control tips? ? Know how many calories are in a serving. This will help you know how many servings of a certain food you can have. ? Use a measuring cup to measure serving sizes. You could (more content not included)... Normal [facility] Urology Office/Clinic Noteon 04-28-2021 Urology Office/Clinic Note Chief Complaint Bph with obstruction. This 70-year-old male has a history of phimosis. He wants to discuss circumcision. He had noted that his voiding pattern has stabilized but not significantly improved on Terazosin. He wants to know if we can increase the dose. HPI Staff Kylie is a 70 year old male here today for BPH with obstruction 1 month follow up cystoscopy done on 04/02/21. Previous DX: BPH with urinary obstruction, urge incontinence, phimosis. Pt could not give UA sample. Dysuria: _Denies Incomplete bladder emptying: _Denies Hematuria: _Denies Frequency: 1-2 hours Urgency: _varies on water intake Nocturia: _Denies Stream: _Steady stream Leaking: _Yes Post void dripping: _Denies Wearing pads/ Depends: _Yes Urge incontinence: _Yes Stress incontinence: _Denies Incontinence without Sensory Awareness: _Denies Abdominal pain: _Denies Flank pain: _Denies Sexual complaints: _ History of Present Illness I have reviewed and verified the staff HPI to be accurate for this encounter. Review of Systems PHQ Score Initial Depression Screen Score: 0 ROS - Provider Constitutional: denies weight loss, denies hot flashes. Eyes: denies eye problems. Gastrointestinal: denies nausea, denies vomiting. Cardiovascular: denies chest pain or angina. Integumentary: no dryness Musculoskeletal: denies musculoskeletal symptoms. ENMT: denies otolaryngeal symptoms. Respiratory: no shortness of breath. Heme/Lymph: denies easy bleeding tendency, denies easy bruising tendency. Psychiatric: no confusion, no anxiety. Genitourinary: denies dysuria, denies hematuria, denies discharge, denies urinary frequency, denies urinary hesitancy, denies nocturia, denies incontinence, denies genital sores, denies decreased libido, and denies erectile dysfunction. Physical Exam Vitals & Measurements HR: 82(Peripheral) RR: 16 BP: 130/79 HT: 181 cm HT: 181.0 cm WT: 115 kg WT: 115.0 kg BMI: 35.1 General Appearance: alert, no distress, well nourished, well developed male. Head: normocephalic . Eyes: normal orbit and globe. ENMT: normal examination of external ears. Chest: Lungs CTA, respirations non labored. Cardiovascular: regular rate and rhythm. Abdomen: soft, non distended, no tenderness, no mass or organomegaly, no hernia. Genitourinary: normal scrotum, normal testes, normal urethra, normal epididymis, normal vas deferens/spermatic cord. Flank Pain: none. Bladder: nonpalpable. Penis: normal shaft, normal glans. Phimosis is noted. I was unable to retract the foreskin. Prostate: normal prostate, estimated weight 45 gms, no hard nodule observed. Lymph Nodes: unremarkable palpation of the cervical area. Skin: warm, dry, no bruising. Psychiatric: cooperative, affect appropriate for age, normal judgement, euthymic mood. Assessment/Plan This patient is being scheduled for elective circumcision. The procedure, risk, alternatives and potential complications have been discussed with the patient. All of his questions were answered. Informed consent has been obtained. We did increase the dose of Terazosin from 2 mg to 5 mg nightly. A new prescription has been sent. We discussed the increased dose and the potential complications from doing this. Has been instructed to take it once a day and to stop the medication if he has any unexpected effects from this medication. 1. Phimosis (N47.1: Phimosis) Patient is still having problems with foreskin. Patient discussed with his daughters having circumcision done at his age. Patient wishes to have circumcision done. Will schedule Circumcision. The procedure risks, benefits, and details have been discussed with the patient. These include bleeding, infection, potential separation of the skin edges (which will heal in), change in penile sensation which may affect sexual intercourse and erections, as well as the need for additional procedures, among others. Full informed consent has been obtained. Will order General anesthesia. Ordered: Urology Procedure Order 2. BPH with urinary obstruction (N40.1: Benign prostatic hyperplasia with lower urinary tract symptoms) Good stream. Patient is taking Terazosin 2mg therapy. Patient unable to give UA sample today. Cysto/UD done 04/02/21, shows prostate obstruction. Patient will increase Terazosin from 2mg to 5 mg. New script is sent today with refills. Will continue to monitor BPH after Circumcision is completed. Will reevaluate if pt needs prostate procedure. Ordered: Urology Procedure Order 3. Urge incontinence (N39.41: Urge incontinence) Mild, Patient does take a diuretic. Ordered: Urology Procedure Order Other obstructive and reflux uropathy (N13.8: Other obstructive and reflux uropathy) Orders: terazosin, 5 mg = 1 cap(s), Oral, Once a day (at bedtime), # 30 cap(s), Refills(s) 6, Pharmacy: [address], 181, cm, 04/28/21 12:55:00 EDT, Height/Length Dosing, 115, kg, 04/28/21 12:55:00 EDT, Weight Dosing Efrem (more content not included)... Normal [facility] Comment on above: Result Comment: Elec tronically Signed By: Shawn Allen MD, Cintia Hernandez\.br\Date and Time Signed: 04/28/21 13:54 EDT\.br\Electronically Co-Signed By: Mayra Orta\.br\Date and Time Co-Signed: 04/28/21 13:09 EDT MRI LUMBAR SPINE WO CONTRAST on 04-10-2021 MRI LUMBAR SPINE WO CONTRAST EXAMINATION: MRI OF THE LUMBAR SPINE WITHOUT CONTRAST, 04/10/2021 11:35 am TECHNIQUE: Multiplanar multisequence MRI of the lumbar spine was performed without the administration of intravenous contrast. COMPARISON: None. HISTORY: ORDERING SYSTEM PROVIDED HISTORY: Lumbosacral radiculopathy TECHNOLOGIST PROVIDED HISTORY: Reason for Exam: chronic and worsening low back pain Additional signs and symptoms: pain after injury 1979 with two surgeries to follow-1979 and 1980 Relevant Medical/Surgical History: bilateral king leg pain and numbness FINDINGS: BONES/ALIGNMENT: The vertebral body heights are maintained. There is age-appropriate bone marrow signal. There is multilevel degenerative disc disease with loss of disc signal. There is disc space narrowing at L5-S1. There is no significant spondylolisthesis. SPINAL CORD: The conus is normal in caliber and signal and terminates at L1. The cauda equina is unremarkable. SOFT TISSUES: The posterior paraspinal soft tissues are unremarkable. The visualized abdominal structures are unremarkable. L1-L2: There is a mild circumferential disc bulge with facet hypertrophy. There is no canal stenosis or foraminal narrowing. L2-L3: There is a circumferential disc bulge. There is no canal stenosis or foraminal narrowing. L3-L4: There is a circumferential disc bulge with facet and ligamentous hypertrophy. There is no canal stenosis or foraminal narrowing. L4-L5: There is a circumferential disc bulge with facet and ligamentous hypertrophy. There is canal stenosis measuring 8 mm in AP dimension. There is mild right foraminal narrowing and no significant left foraminal narrowing. L5-S1: There is evidence of prior discectomy and posterior laminectomy. There is no canal stenosis or significant foraminal narrowing. IMPRESSION: Multilevel degenerative disc disease with associated facet and ligamentous hypertrophy with canal stenosis at L4-5. Mild right foraminal narrowing at L4-5. Interpreted by: Charlie Farmer MD Signed by: Charlie Farmer MD 04/10/21 Final result Normal [facility] Coding Summary.on 04-06-2021 Coding Summary. CD:[id number] Gh 0bWw+PGhlYWQ+ZK6PEELwK 67ufXHxcH5XS8fCRW7LRAZ VHZDHRE6FHF1urIR2LBwsM 2VybiAv DldqnZCmJS83KTb8TPC1sF uwMJduyT0dyTMlW7u1VhAr EA32nJ14BAsvJSDyWfR4Ps ZpbjsgbWFy J6xvLiPlbHRjItg+PHRhYm xlIHdpZHRoPScxMDAlJyBz jGpeXE7eSh6mMLCsNHOtyF xhcHNlOiBj p6upOWNvCFwkXS3jkZwrW0 JwgIC3CDZmn6k7Wa11mJU+ EKGpCFX0iYyrLXriw385Dn Xyb7fbQZB6 cHMhRRzjWTR9N41jz3U3QU OcWIQlTLV0fCI0vD0uhTcz cdmsE0XngPScPlN8ALL3sK GzcX4qkFho lfwraQ4sQgl+M25NCQ9GTU UFBY5WMjl4S0UsMgaprRY+ HC36CGBvFS96mSXnmYNov8 dgyWt9FpHc SBWiMAB9oMnqJJelh5VnII DgX08mxEVgk6V6EZRpmAfz uSCjTsUkaLX2rT4aDLhbnn hcp2vzlruq Rrznq3yzhg69dP50F50cAC vxCSUeLZR7EGMcHAWauLvq ms5nlC8qOn2+MAhmh8uzv8 fpdLj8YoHt CXIpdrVpdIxeTPW9e2UiRy 93G7SfaLpbi4JlYyl3vj66 sOUjs5Z6aEK6ANztYLQfdL 8cKAslGpL5 TGInZwPmsR26uTTgDKtbKg 2ckPrjoXkqXZ9sIXKqqdaa QQGjuF4jNQYrsUTlpGyoGX 4wNTBpbjtm x718CfHsSCC1HIDjfZPkY6 DayA9tGmVpDDTuLPXpM7Wa pDIlQHglA997VNwgNmH3UO CawiFkE3Th ECJjlPabHfT4e0W0Gx9Qd5 CctcfpGSH6MJzjWYFyOlWu RoNrHzL2Y7MzCey2ETGmhK upBZ9hU2Aj USZomfxpmclvqKW3TMWzXI LduN69qWGwOOdzOm9ig5M8 b932RPQnYCEchW65Oy5icT ogMTBwdCBU gY2wknvsc1askinkHjYfXP JuKRx6LDq3YGKiqDtqNzXb QHV2WwA2NRJ2tTSoxK6fiI jkcdpoyW4p Oyc+Q51cnB5vEID2TVT0eo wqNSDhwyIuXA66LX86B1Mc PjwvdGFibGU+PGRpdiBzdH zdMV6eEsDt y2ygi7McHQxhE4QuSFQbEB uoMob8TLUsGME2tSS8pF1r XNPtRGyjs8Y7iQN9F1Getq Nlia3ic5nu PPFyFAzdU99qxOCog1D9OH DlpQC8PRRwdRflYoAqvK59 Oyc+HPKloLevs3KuLwvvm0 ihg4jrxMe3 XjSnMBWdpdArzQmlFLI4m6 VfBl38G89pNAdsPFHrMPAd BODtPTTobNjsia4pxO4oSq 8+PGNvbCB3 bDG4fB1tSJGsKjG1ACevO0 00RaVuiCBqHndcy2aai8yp aXk0FcAaQEMqmgHqmRysZK C4m5QmGt11 S23kRXyoCRGxORQsIEQcLB NfjXaijj0ltI2nWh6+PC9j p4grsk12xO59cPL+PHRkIH W3sOnkUJrn RUAbrS8qPZlhGsF9OWOyJv IiuD23aRQuIFlsZh3fjGux pEjeTZ5jCJBorohan790Ay Puw9xxGVGh xVFwQBzzRSW5P14ge8A8AT GfKNYhEXE4fSQ0dR0agEbn bjogbGVmdDsgdmVydGljYW xxOAimU156 IHRvcDsnPlBhdGllbnQgTm HfARj5S1VaCbz2CZQbqDwo EJ2frYLtFCplId8vsOeyrZ siJH3eMFAt yyzeu111FzUhw8nyNYKucO IwRVjkVPR9K13rx7I1SQVk GSIcXLD5nZC5eR0tkLtlnd ogbGVmdDsg ktAllXcjHOsmWZmmK757FX RvcDsnPkJpcnRoIERhdGU6 UC58AF05eHUah8P6eHD0U8 BhZGRpbmct oepmpUE0PNHkSVDlqY56Jp 0sqYytUj3aAPWfSUA0VOWc mZJhA8AgmJ4zSeRfTCFuHB HaI8NezHLd KPuoY687LYrlZgS4IVPsgd LgY7UvABXiuZlpZrO6w4R8 Bg9TY4V4JJ68LU21yOWuv9 Y3eNL5B9Ev OIQmjdnpyurgnEL8QZPzFB HuxM95Wo7ipEzuZj0gSLKe BVX9QOEqjPXrP7JlbM0uJz AjMDAwMDAw W4DtiFCdCXrnN308AMryKp J7UEIyofFqF7HtASWsqSgz LoJ4y3L2Ez5YSWj7YJ10DQ 03jMWpr4L4 aIM1L0QvRFGrbnltcngeeK Z4CRMsWZEgfS30Po4kdNht Kk2pGLEtBRA4CSStzVYkY5 WzaT2wSxIa OCZnYUOvT5NljZVcTOihT1 24WJedHpR8TMCbsqNtC5Bq FRSshPqfTsR4p9Q3Dz2SRR EvFZ96QKN0 tIH4BC74WH10A3SpBowhvO FibGU+PHRhYmxlIHdpZHRo KNvnJPCcAdXnlCtvFN5gEg 9yZGVyLWNv lVbkyLBrIqQnd4leTKDnSD ifFK4kyIopC4WjvED5IFWm q8m2Fr30U35eU8UwjYD+PG AysGK9wUM3 jG1hCoObUdC3TIhiV451Ri LigJTuGpqlm4pak6mjnXg4 JzC2UZEykgQdbOsnCRR2u0 BfCm48H04a IHdpZHRoPSIxNSUiIHZhbG gdqs9owK3vGr2+PGNvbCB3 fXP6fR8cVqYcGwM3HVkmQ6 49InRvcCIv Fhwdf3ang6nfwUr4HjFfXC MbwpXcgGxrXZV0h8JlRh03 U6LebJmpi9ZbIei4fq18xV Sny0F6eJS2 K6IrSIZszcuscTSwbBdnPG 4iSDYchgecTBTlzI6cMRAp N9d0SuXsIyH1UAnhF0Rpjr E0UZEtuJWi GFzaIRH6Y56ob1Y2QAJrHE VbOAE1tYA2aO3pcNaxcvux bGVmdDsgdmVydGljYWwtYW lkL955OHVv tOidNOJifH3kBHSqwLMvcX atFT6iIXYaxehxFpPNVwiQ EmGvKEFAQu2IPI31YV19qG Wnt3K7iEY5 U9FbFPDfrjxoiggwzHO7EU KiNBExbA58sCLjTMvuEr0j s3I3j533JHEzJPBajB04Hg 9udDogMTBw uTOOeI9lcqrzq7rpjovnKf ImPPHvNFl9IJz2RUXetYyg XjZpRBD1DxQ0TFR7eHCjzA 1hbGlnbjog lZ4xTjy+TEusDWQwHJc8JW wvdGQ+SNYvNEY0xAxzLOms KHAibH2oWPZvA9d8FyUqRy X6TAoxA4Sy TCMzxcsyCh62uE3hAzAjSb O3WZwkM9MhipI5AJAhzYFp WZpeEPD2V80bq4T6SFIrSH QxPYS5bKP6 vS0mxXqamkuagZHldEbgnz IepGrrGNhtWWgsG554EKWw gLxnRlvkEDrgHLQjHQ18QE 32lYWpy8Y2 hEW3H3MhHMTosqqqfurpbD V7KZYwLVJelY72qLRyVWnr Cp6yq2V3e644IPUbHHEkuM 68Rm3icEdj CPWvdMVLcX0zzynvd4syjl fqRmBuIAHhFOz9BGj5CAZl lAgnDvCcYSY1GcG2NPF9uA BmdN4jmYqe qgjmwA5kUoa+TWFsZTwvdG Q+USLoKFN8dKlwTJnpVGMf oV4mWZWpP0j6LdSzIqX3PO mtU9WoWMCh zlqyRj92uN2mRlLiSzY0WS aaJ2RlauH1EXBjyAJdAAfi AUE3R50lr8A2YWGhPEFfXP Z6bGQ3xU8l bGlnbjogbGVmdDsgdmVydG qzWNfuREsoE950QHMswOly Mq14sIIscLqyjgL4Q2GrBw wvdHI+PC90 IUDhYC54iAZjuMEkc5yjjM g8RfVkJWNmTMP5qMuaYVet e6EsGCMhY40apSXko2M7UG NvbGxhcHNl LmLuwMT6cH6eAGcscoawj9 gsvkxbAvqai5rhpw79jP85 X40eWUhuQESnFFHuPFHvTZ IjcVjurc4k uJ3yPc1+FLThiEW7hST7uN 8bIaInZaE4OUasW115QrNb oQYpUisqt2zyx5izbIa9Nv IwJSIgdmFs vSptKOZ5b7SdHe64X73wPQ dpZHRoPSIyMCUiIHZhbGln zf3vuJ7iSq7+MV3ba4qfdm 39tS45oNW+ KASrABB6jXdzOUkmTODdgO 8cUXcaMjT1ROTvOdVsbZ63 vDIgLNsjXe4egGdkhLylRL 4wNTBpbjtm i661GyVna2ozTPDloPHpQS otRYX1D11um9A9QHMsSNRu KAU3sPF4jM2wvNaipwpahZ VmdDsgdmVy lWpuWMafMOrjY001PNLjgU ecIyCpxKJiM3alkkHFCF5w OjwvdGQ+BXJsJEH5hFdtVA hxMQZskM5b XMVsM9l4AcHgEnL9QMfyE8 IhrhZ1DABraGAhYZUxeBZA aZ7cjqxtv1fosvjcBsUdCH SiDIa1IGu4 ZSEgiFbmWvAgUQP0HoS2VC Q8yIFteY6dpZsltogxuJ0d Oyc+RklOOjwvdGQ+PHRkIH Y3zVzrFVqc IURciC9kUOHoP1r7PoIgOz G5UIrxZ1VcdxZ5HLLogMBi XMYcvYJOhB5urpmrt4cgsi ogIzAwMDAw AOw8IHj1BILgdSikKiCePV H6MpZ1DEL4dIVmuS8muYnl hudxcI0nChs+TVJOOjwvdG Q+PHRkIHN0 dAizHKzrPWXzxW1yHMGvE6 h9RyKnKeK5SCibJ4IbviU0 UMOfaLCpAEWmcOYOoW6ntu rwc0ktyqxj PxRfPVXpUUd4DVy7QZYfnR eoQmAvVOG5BtA8IOW6fTLl rA0uqTsyfevshF1nKic+UG W4IHA7DD96 LX16H0WcKtbjoEIkeLT+PH RhYmxlIHdpZHRoPScxMDAl YzToqPukGA4tBq6pIHXbEV NvbGxhcHNl OiBj (more content not included)... Normal [facility] Consent for Procedure/Surger yon 04-06-2021 Consent for Procedure/Surgery [id number]. 00CD:127 Normal [facility] IntraOperative Documentson 0 04-06-2021 IntraOperative Documents [id number]#1. 00CD:127 [facility] Consent for Treatmenton 03-17 Consent for Treatment [id number]#1.0 0CD:127 [facility] Main OR Intraoperative Recor don 04-02-2021 Main OR Intraoperative Record IntraOp Document Type FTURO Summary Primary Physician: Cintia Alves Jr., MD Finalized Date/Time: 04/02/21 08:45:09 Pt. Name: KYLIE RUEDA/Sex: 1950 Male Med Rec #: [id number] Physician: Cintia Alves Jr., MD Financial #: [id number] Pt. Type: O Room/Bed: / Admit/Disch: 04/02/21 08:04:57 - Institution: Case Times FTURO Entry 1 Patient Times In Room 04/02/21 08:25:00 Out Room 04/02/21 08:49:00 Procedure Times Start 04/02/21 08:41:00 Stop 04/02/21 08:45:00 Anesthesia Times Last Modified By: Pankaj REED, Racquel MCKEON 04/02/21 08:44:58 Case Attendance FTURO Entry 1 Entry 2 Entry 3 Case Attendee Shawn Allen MD, Cintia Lira RN, BREANNOR, Marya Tidwell CST Role Performed Surgeon - Primary Bending Shed Worker - Primary Scrub - Primary Time In 04/02/21 08:25:00 04/02/21 08:25:00 04/02/21 08:25:00 Time Out 04/02/21 08:49:00 04/02/21 08:49:00 04/02/21 08:49:00 Procedure CYSTOSCOPY LOCAL WITH CYSTOSCOPY LOCAL WITH CYSTOSCOPY LOCAL WITH URETHRAL DILATION(.) URETHRAL DILATION(.) URETHRAL DILATION(.) Comments Last Modified By: Pankaj REED, BREANNOR, Pankaj REED, BREANNOR, Pankaj REED, BREANNOR, Racquel 04/02/21 Racquel 04/02/21 Racquel 04/02/21 08:45:00 08:45:00 08:45:00 General Comments: dannielle juarez res with dr alves in room for procedure Surgical Procedures FTURO Entry 1 Procedure Description Procedure CYSTOSCOPY LOCAL WITH Modifiers . URETHRAL DILATION Surgeon Description cysto with UD Primary Procedure Yes Primary Surgeon Shawn Allen MD, Cintia Hernandez Start 04/02/21 08:41:00 Stop 04/02/21 08:45:00 Anesthesia Type Local Surgical Service Urology Wound Class 2 - Clean-Contaminated Last Modified By: MIKE Lira RN, Racquel 04/02/21 08:45:01 General Case Data FTURO Pre-Care Text: Classifies surgical wound, implements aseptic technique, initiates traffic control Entry 1 Case Information OR URO 1 FT Case Level None Wound Class 2 - Clean-Contaminated Specialty Urology Preop Diagnosis BPH W URINARY Postop Same As Preop Yes OBSTRUCTION and urethral stricture Postop Diagnosis BPH W URINARY Outcomes Met? Yes OBSTRUCTION and urethral stricture Last Modified By: Pankaj REED, MIKE, Racquel 04/02/21 08:44:47 Post-Care Text: The patient is free from signs and symptoms of infection EU IntraOp - FTURO Pre-Care Text: Implements protective measures prior to operative or invasive procedure, confirms identity before the operative or invasive procedure, verifies operative procedure, surgical site, and laterality Entry 1 EU Perioperative Protocols Procedure(s) CYSTOSCOPY LOCAL WITH Patient Identity Birthday, ID Band URETHRAL DILATION(.) Verified (select at Check, Patient least 2): Participation Consents / H and P HandP, Surgery/Procedure Operative Site N/A Verified Consent Marking Verified Surgical Site Yes Laterality Verified n/a Verified Procedure Verified Yes Correct Patient Yes Position Verified Availability Equipment, Medication Time Out Shawn Allen MD, Cintia Hernandez, Verified (If Participants Pankaj REED, CNOR, Applicable) Diann Clement CST, Kimberly A Time Out Complete 04/02/21 08:30:00 Allergies Reviewed? Yes Allergies Reviewed Self/Patient With Body Position Supine Prep Area penis Prep Agents Betadine Solution Skin. Condition Unable to Visualize Additional None Specimens Collected Vitals - EU Blood Pressure 146/96 Pulse 66 bpm Respirations SPO2 EBL 0 IandO - EU Total Intake 0 mL Total Output 0 mL Outcomes Met? Yes Last Modified By: MIKE Lira RN, Ruthann 04/02/21 08:31:55 Post-Care Text: The patient is free from signs and symptoms of injury caused by extraneous objects Sign Out FTURO Entry 1 Before Patient Leaves OR Nurse verbally Yes Nurse verbally n/a confirms with the confirms with the team the name of team that the procedure(s) instrument, sponge, recorded and needle counts are correct (or N/A) Nurse verbally n/a Nurse verbally n/a confirms with the confirms with the team how the team whether there specimen is labeled are any equipment (including patient problems to be name), if applicable addressed Sign Out Complete 04/02/21 08:47:00 Last Modified By: MIKE Lira RN, Ruthann 04/02/21 08:45:06 Case Comments Finalized By: MIKE Lira RN, Ruthann Document Signatures Signed By: MIKE Lira RN, Ruthann 04/02/21 08:45 Normal [facility] Main OR Preoperative Recordo n 04-02-2021 Main OR Preoperative Record Holding Area Document Type FTURO Summary Primary Physician: Cintia Alves Jr., MD Finalized Date/Time: 04/02/21 08:26:32 Pt. Name: KYLIE RUEDA/Sex: 1950 Male Med Rec #: [id number] Physician: Cintia Alves Jr., MD Financial #: [id number] Pt. Type: O Room/Bed: / Admit/Disch: 04/02/21 08:04:57 - Institution: Case Times Holding FTURO Pre-Care Text: Verifies consent for planned procedure, identifies individual values and wishes concerning care, includes family members in perioperative teaching Secures patient's records' belongings, and valuables, maintains patient's dignity and privacy, and maintains patient confidentiality Entry 1 In Holding 04/02/21 08:16:00 Outcomes Met? Yes Last Modified By: Arpan Campuzano LPN 04/02/21 08:16:18 Post-Care Text: The patient participates in decisions affecting his or her perioperative plan of care The patient's right to privacy is maintained Surgery Checklist FTURO Entry 1 Patient Birthday, ID Band Procedure History and Physical, Identification: Check, Patient Verification: Surgical Consent, With Participation Patient NPO after Midnight: n/a Personal Items: Glasses Limitations: uses cane Complaints of Pain: No Skin Integrity Unable to Visualize Vitals - EU Blood Pressure 146/96 Pulse 66 bpm Respirations 16 br/min SPO2 RN Reviewed Yes Last Modified By: MIKE Lira RN, Ruthann 04/02/21 08:26:30 General Comments: Temp 36.1 Finalized By: MIKE Lira RN, Ruthann Document Signatures Signed By: Arpan Campuzano LPN 04/02/21 08:18 Arpan Campuzano LPN 04/02/21 08:18 MIKE Lira RN, Ruthann 04/02/21 08:26 Normal [facility] Operative Reporton 2 Operative Report Patient: KYLIE RUEDA Age: 70 years Sex: Male : 1950 Associated Diagnoses: None Author: Shawn Allen MD, Cintia Julian This patient is a 70-year-old male with a history of outlet obstruction symptoms. He underwent cystoscopic examination today. Initially was concerned about phimosis but that is not the case. He does have evidence of an enlarging prostate. Cystoscopic evidence showed prostatic hyperplasia with outlet obstruction. Health Status Allergies: Allergic Reactions (Selected) Severity Not Documented Contrast media (iodine-based)- Anaphylaxis. Current medications: (Selected) Prescriptions Prescribed Cipro 500 mg Tab: 500 mg = 1 tab(s), Oral, As Directed, # 2 tab(s), Refills(s) 0, Pharmacy: [facility], 181, cm, 03/26/21 9:56:00 EST, Height/Length Dosing, 115, kg, 02/24/21 11:35:00 EST, Weight Dosing tamsulosin 0.4 mg Cap: 0.4 mg = 1 cap(s), Oral, Daily, # 30 cap(s), Refills(s) 1, Pharmacy: [facility], 181, cm, 03/26/21 9:56:00 EST, Height/Length Dosing, 115, kg, 02/24/21 11:35:00 EST, Weight Dosing Documented Medications Documented Boostrix (Tdap): IntraMuscular, Once, Refill(s) 0 Claritin: Daily, Refills(s) 0 Fluad Quadrivalent PF : IntraMuscular, Once, Refill(s) 0 Lyrica: Oral, Refills(s) 0 atorvastatin 40 mg Tab: mg tab(s), Oral, Daily, Refills(s) 0 baclofen 10 mg Tab: mg tab(s), Oral, TID, Refills(s) 0 carBAMazepine 100 mg Chew Tab: mg tab(s), Chewed, QID, Refills(s) 0 clopidogrel: Oral, Refills(s) 0 diazepam 5 mg Tab: mg tab(s), Oral, TID, Refills(s) 0 doxycycline: Refills(s) 0 duloxetine 30 mg Cap-DR: mg, Oral, BID, Refills(s) 0 famotidine 20 mg Tab: mg tab(s), Oral, BID, Refills(s) 0 fluticasone propionate: Inhalation, Refills(s) 0 furosemide 20 mg Tab: mg tab(s), Oral, Daily, Refills(s) 0 oxyCODONE 5 mg Cap: mg cap(s), Oral, q6hr, Refills(s) 0 Problem list: All Problems BPH with urinary obstruction / SNOMED CT 8732462376 / Confirmed Phimosis / SNOMED CT 6095309150 / Confirmed Urge incontinence / SNOMED CT 407104183 / Confirmed, Active Problems (3) BPH with urinary obstruction Phimosis Urge incontinence History of Present Illness Cystoscopy shows evidence of prostatic hyperplasia with bladder outlet obstruction. The bladder shows trabeculation with cellule formation. Also noted was a mid urethral stricture which has been dilated. Objective Prostatic hyperplasia with bladder outlet obstruction. Impression and Plan This patient will be started on tamsulosin 0.4 mg a day. He has a prescription for 30 tablets with 1 refill. He did undergo urethral dilation in the office today. He will follow up in the office for PVR in 1 month. Is been instructed to contact our office if he has any problems using this medication. He may stop it at any time. Normal [facility] Comment on above: Result Comment: Elec tronically Signed By: Cintia Alves Jr., MD\.br\Date and Time Signed: 04/02/21 08:56 EST Operative Report Patient: KYLIE RUEDA Age: 70 years Sex: Male : 1950 Associated Diagnoses: None Author: Cintia Alves Jr., MD Procedure Operative Information Details: Date/ Time: 04/02/2021 08:51:00. Pre-Op Dx: BPH w/ LUTS - N40.1, Urethral Stricture - Male Post Trauma Membranous - N35.012. Post-Op Dx: Same. Anesthesia Type: Local. Procedure: Local Cystoscopy with Urethral Dilation. Complications: None. Risks/Benefits/Informe d Consent: Surgical risks, benefits, details of the procedure have been explained to the patient, Full informed consent has been obtained. Intraoperative Information Prepped: Patient is brought back to the endoscopy suite, Patient is placed in supine position, Patient prepped in the usual fashion with Betadine solution, 2% Xylocaine Jelly is placed per Urethra, After waiting several minutes the Cystoscope is introduced. The Urethra is: Tight. The Prostatic Urethra is: Obstructed, The prostate was enlarged and obstructing. The lateral lobes met in the midline. There was no specific enlargement of the middle lobe.. The Bladder is: Abnormal, Trabeculated (Severe (3), Cellule formation was noted with severe trabeculation. No mucosal lesions were identified. There were no diverticuli. ). The ureteral orifices: Show efflux of clear urine. The Urethra was dilated to: 24 Greenlandic w/ sounds. Devices Implanted: None. Removal: Cystoscope is removed, The patient tolerated it well. Postoperative Information Discharge: Patient is discharged home with antibiotic coverage, Follow up arranged, This patient was started on a trial of tamsulosin 0.4 mg daily. A new prescription was sent to the pharmacy. We will plan follow-up with PVR in the office in 1 month.. [facility] Comment on above: Result Comment: Elec tronically Signed By: Cintia Alves Jr., MD\.br\Date and Time Signed: 04/02/21 08:52 EST [employer] 02-24-2021 Forms [id number] 0CD:127 Normal [facility] Patient Educationon 02-24-19 Patient Education BMI for Adults Body mass index (BMI) is a number that is calculated from a person's weight and height. BMI may help to estimate how much of a person's weight is composed of fat. BMI can help identify those who may be at higher risk for certain medical problems. How is BMI used with adults? BMI is used as a screening tool to identify possible weight problems. It is used to check whether a person is obese, overweight, healthy weight, or underweight. How is BMI calculated? BMI measures your weight and compares it to your height. This can be done either in [place] or metric measurements. Note that charts are available to help you find your BMI quickly and easily without having to do these calculations yourself. To calculate your BMI in [place] measurements, your health care provider will: 1. Measure your weight in pounds (lb). 2. Multiply the number of pounds by 703. ? For example, for a person who weighs 180 lb, multiply that number by 703, which equals 126,540. 3. Measure your height in inches (in). Then multiply that number by itself to get a measurement called inches squared. ? For example, for a person who is 70 in tall, the inches squared measurement is 70 in x 70 in, which equals 4900 inches squared. 4. Divide the total from Step 2 (number of lb x 703) by the total from Step 3 (inches squared): 126,540 ? 4900 = 25.8. This is your BMI. To calculate your BMI in metric measurements, your health care provider will: 1. Measure your weight in kilograms (kg). 2. Measure your height in meters (m). Then multiply that number by itself to get a measurement called meters squared. ? For example, for a person who is 1.75 m tall, the meters squared measurement is 1.75 m x 1.75 m, which is equal to 3.1 meters squared. 3. Divide the number of kilograms (your weight) by the meters squared number. In this example: 70 ? 3.1 = 22.6. This is your BMI. How is BMI interpreted? To interpret your results, your health care provider will use BMI charts to identify whether you are underweight, normal weight, overweight, or obese. The following guidelines will be used: ? Underweight: BMI less than 18.5. ? Normal weight: BMI between 18.5 and 24.9. ? Overweight: BMI between 25 and 29.9. ? Obese: BMI of 30 and above. Please note: ? Weight includes both fat and muscle, so someone with a muscular build, such as an athlete, may have a BMI that is higher than 24.9. In cases like these, BMI is not an accurate measure of body fat. ? To determine if excess body fat is the cause of a BMI of 25 or higher, further assessments may need to be done by a health care provider. ? BMI is usually interpreted in the same way for men and women. Why is BMI a useful tool? BMI is useful in two ways: ? Identifying a weight problem that may be related to a medical condition, or that may increase the risk for medical problems. ? Promoting lifestyle and diet changes in order to reach a healthy weight. Summary ? Body mass index (BMI) is a number that is calculated from a person's weight and height. ? BMI may help to estimate how much of a person's weight is composed of fat. BMI can help identify those who may be at higher risk for certain medical problems. ? BMI can be measured using [place] measurements or metric measurements. ? To interpret your results, your health care provider will use BMI charts to identify whether you are underweight, normal weight, overweight, or obese. This information is not intended to replace advice given to you by your health care provider. Make sure you discuss any questions you have with your health care provider. Document Released: 10/12/2004 Document Revised: 01/13/2018 Document Reviewed: 12/14/2017 [employer] Patient Education ? 2020 [employer] Nutrition BMI for Adults Body mass index (BMI) is a number that is calculated from a person's weight and height. BMI may help to estimate how much of a person's weight is composed of fat. BMI can help identify those who may be at higher risk for certain medical problems. How is BMI used with adults? BMI is used as a screening tool to identify possible weight problems. It is used to check whether a person is obese, overweight, healthy weight, or underweight. How is BMI calculated? BMI measures your weight and compares it to your height. This can be done either in [place] or metric measurements. Note that charts are available to help you find your BMI quickly and easily without having to do these calculations yourself. To calculate your BMI in [place] measurements, your health care provider will: 1. Measure your weight in pounds (lb). 2. Multiply the number of pounds by 703. ? For example, for a person who weighs 180 lb, multiply that number by 703, which equals 126,540. 3. Measure your height in inches (in). Then multiply that number by itself to get a measurement called inches sq (more content not included)... Normal [facility] Urology Office/Clinic Noteon 02-24-2021 Urology Office/Clinic Note Chief Complaint Tuan smith for foreskin issues HPI Staff Kylie is a 70 y/o male here for foreskin problems Dysuria: _denies Incomplete bladder emptying: _yes Hematuria: _denies Frequency: _yes Urgency: _yes Nocturia: _x2-3 Stream: _sprays Leaking: _yes Post void dripping: _yes Wearing pads/ Depends: _yes Urge incontinence: _yes Stress incontinence: _denies Incontinence without Sensory Awareness: _denies Abdominal pain: _denies Flank pain: _denies Sexual complaints: _ History of Present Illness Tests Reviewed: Reviewed UA. I have reviewed the previous health record information and history for this patient from Dr. Jenny Cast I have reviewed and verified the staff HPI to be accurate for this encounter. There have been no associated fever, chills, flank pain, or blood in the urine. Denies any urinary infections since last encounter. Review of Systems ROS - Provider Constitutional: denies weight loss, denies hot flashes. Eyes: denies eye problems. Gastrointestinal: denies nausea, denies vomiting. Cardiovascular: denies chest pain or angina. Integumentary: no dryness Musculoskeletal: denies musculoskeletal symptoms. ENMT: denies otolaryngeal symptoms. Respiratory: no shortness of breath. Heme/Lymph: denies easy bleeding tendency, denies easy bruising tendency. Psychiatric: no confusion, no anxiety. Genitourinary: denies dysuria, denies hematuria, denies discharge, denies urinary frequency, denies urinary hesitancy, denies nocturia, denies incontinence, denies genital sores, denies decreased libido, and denies erectile dysfunction. Physical Exam Vitals & Measurements HR: 83(Peripheral) BP: 132/76 HT: 181.0 cm HT: 181 cm WT: 115.0 kg WT: 115 kg BMI: 35.1 General Appearance: alert, no distress, well nourished, well developed male. Head: normocephalic . Eyes: normal orbit and globe. ENMT: normal examination of external ears. Chest: Lungs CTA, respirations non labored. Cardiovascular: regular rate and rhythm. Abdomen: soft, non distended, no tenderness, no mass or organomegaly, no hernia. Genitourinary: normal scrotum, normal testes, normal urethra, normal epididymis, normal vas deferens/spermatic cord. Flank Pain: none. Bladder: nonpalpable. Penis: normal shaft, normal glans. The foreskin was examined. There is actually no phimosis present. It retracts easily. There are no adhesions. Prostate: normal prostate, estimated weight 40 gms, no hard nodule observed. Lymph Nodes: unremarkable palpation of the cervical area. Skin: warm, dry, no bruising. Psychiatric: cooperative, affect appropriate for age, normal judgement, euthymic mood. Assessment/Plan This 70-year-old gentleman has a multitude of medical problems including anxiety, hypertension, congestive heart failure and presents today because of urinary frequency, urgency and some urgency incontinence. He relates some of these issues to having to retract the foreskin but on closer questioning he really has urgency with urgency incontinence. He has been scheduled for cystoscopy and dilation of a suspected urethral stricture. We will also get a plan to begin management with avoiding any additional oral medications if possible. Presently takes Terazosin 2 mg nightly. Although this is not a very big dose I do not want to increase it given the polypharmacy that he is already dealing with. The cystoscopic examination should hopefully improve our ability to suggest treatment options. I did be happy if he was a candidate for UroLift or resume office-based procedure. We will discuss this in more detail after his cystoscopic exam. The procedure, risk, alternatives and potential complications have been discussed with the patient. Preop antibiotics have been ordered and informed consent has been obtained. 1. Phimosis (N47.1: Phimosis) New patient referred by Dr. Jenny Cast. Suspected Phimosis Uncircumcised. He doesn't have difficulty to pull back foreskin. Exam is normal no 2. BPH with urinary obstruction (N40.1: Benign prostatic hyperplasia with lower urinary tract symptoms) No BPH medication. He does have bothersome night time awakenings to void, stream sprays, leaking. CATARINA is 40 gms and benign. Discussed cystoscopy. Patient is agreeable. The risks and benefits for cystoscopy have been discussed. The risks include bleeding, infection, and irritation of the bladder and urinary channel, among others. The patient, after being informed of procedural details and after questions have been answered, wishes to proceed. Full informed consent has been obtained. Will order Local anesthesia. 3. Urge incontinence (N39.41: Urge incontinence) He does take an diuretic. Other obstructive and reflux uropathy (N13.8: Other obstructive and reflux uropathy) Orders: ciprofloxacin, 500 mg = 1 tab(s), Oral, Daily, Take 1 tab day prior to cysto and 1 tab after cysto, X 2 day(s), # 2 tab(s), Refills(s) 0, Pharmacy: [facility], 02/24 (more content not included)... Normal [facility] Comment on above: Result Comment: Elec tronically Signed By: Shawn Allen MD, Cintia Hernandez\.br\Date and Time Signed: 02/24/21 12:54 EST\.br\Electronically Co-Signed By: Vanessa Herring MA\.br\Date and Time Co-Signed: 02/24/21 12:11 EST Basic Metabolic Panel w/ Ref gee to MGon 12-04-2019 Anion gap [Moles/Vol] 7 mmol/L Low 9 - 17 mmol/L [place] Bun/Cre Ratio 12 [place] Calcium [Mass/Vol] 8.8 mg/dL 8.6 - 10. 4 mg/dL [place] Chloride [Moles/Vol] 100 mmol/L 98 - 10 7 mmol/L [place] CO2 [Moles/Vol] 28 mmol/L 20 - 31 mmol/L [place] Creatinine [Mass/Vol] 0.68 mg/dL Low 0.7 - 1.2 mg/dL [place] GFR >60 >60 mL/min [place] GFR Non- >60 >60 mL/min [place] GFR/1.73 sq M predicted among non-blacks MDRD (S/P/Bld) [Vol rate/Area] NOT REPORTED [place] GFR/1.73 sq M predicted among non-blacks MDRD (S/P/Bld) [Vol rate/Area] [place] Comment on above: Average GFR for 70 o r more years old: 75 mL/min/1.73sq m Chronic Kidney Disease: <60 mL/min/1.73sq m Kidney failure: <15 mL/min/1.73sq m eGFR calculated using average adult body mass. Additional eGFR calculator available at: http://www.AVA.ai/multiple_crcl_2012.htm Glucose [Mass/Vol] 120 mg/dL High 70 - 99 mg/dL [place] Interpretation and review of laboratory results Abnormal [place] Potassium [Moles/Vol] 4.0 mmol/L 3.7 - 5.3 mmol/L [place] Sodium [Moles/Vol] 135 mmol/L 135 - 144 mmol/L [place] Urea nitrogen [Mass/Vol] 8 mg/dL 8 - 23 mg/dL [place] CBCon 12-04-2019 Erythrocyte distribution width (RBC) [Ratio] 12.1 % 11.8 - 14.4 % [place] Hematocrit (Bld) [Volume fraction] 33.1 % Low 40.7 - 50.3 % [place] Hemoglobin (Bld) [Mass/Vol] 10.9 g/dL Low 13 - 17 g/dL [place] Interpretation and review of laboratory results Abnormal [place] MCH (RBC) [Entitic mass] 29.5 pg 25.2 - 33.5 pg [place] MCHC (RBC) [Mass/Vol] 32.9 g/dL 28.4 - 34.8 g/dL [place] MCV (RBC) [Entitic vol] 89.5 fL 82.6 - 102.9 fL [place] Platelet mean volume (Bld) [Entitic vol] 8.7 fL 8.1 - 13.5 fL [place] Platelets (Bld) [#/Vol] 253 10*3/uL [place] RBC (Bld) [#/Vol] 3.70 10*6/uL Low 4.21 - 5.7 7 m/uL [place] WBC (Bld) [#/Vol] 7.9 10*3/uL [place] WBC (Bld) [#/Vol] 0.0 10*3/uL 0.0 per 10 0 WBC [place] Protime-INRon 12-04-2019 INR Coag (PPP) [Relative time] 1.1 {INR} [place] Comment on above: Non-therapeutic Range: INR = 0.9-1.2 Therapeutic Range: Moderate Anticoagulant Intensity: INR = 2.0-3.0 High Anticoagulant Intensity: INR = 2.5-3.5 PT Coag (PPP) [Time] 13.8 s [place] FLUORO FOR SURGICAL PROCEDUR ESon 12-03-2019 Radiology exam is complete. No Radiologist dictation. Please follow up with ordering provider. [place] XR LUMBAR SPINE (2-3 VIEWS)o n 12-03-2019 [place], [facility] Incoming Radiant Results From [facility] - 12/03/2019 8:59 AM EDT EXAMINATION: SPOT FLUOROSCOPIC IMAGES 12/03/2019 8:39 am TECHNIQUE: Fluoroscopy was provided by the radiology department for procedure. Radiologist was not present during examination. FLUOROSCOPY DOSE AND TYPE OR TIME AND EXPOSURES: 4 images 44.2 seconds 13.37 mGy COMPARISON: None HISTORY: Intraprocedural imaging. Pain pump placement. FINDINGS: 4 spot images of the lumbar spine were obtained. Intraoperative fluoroscopy demonstrates pain pump catheter projecting over spine.. IMPRESSION: Intraprocedural fluoroscopic spot images as above. See separate procedure report for more information. [facility] spot images as above. See separate procedure report for more information. [facility]: SPOT FLUOROSCOPIC IMAGES 12/03/2019 8:39 am TECHNIQUE: Fluoroscopy was provided by the radiology department for procedure. Radiologist was not present during examination. FLUOROSCOPY DOSE AND TYPE OR TIME AND EXPOSURES: 4 images 44.2 seconds 13.37 mGy COMPARISON: None HISTORY: Intraprocedural imaging. Pain pump placement. FINDINGS: 4 spot images of the lumbar spine were obtained. Intraoperative fluoroscopy demonstrates pain pump catheter projecting over spine.. [facility] 2019 SARS-CoV-2, [place] Not Detected Not Detected [facility] [place] Comment on above: (NOTE) This nucleic acid amplification test was developed and its performance characteristics determined by [employer]. Nucleic acid amplification tests include PCR and TMA. This test has not been FDA cleared or approved. This test has been authorized by FDA under an Emergency Use Authorization (EUA). This test is only authorized for the duration of time the declaration that circumstances exist justifying the authorization of the emergency use of in vitro diagnostic tests for detection of SARS-CoV-2 virus and/or diagnosis of COVID-19 infection under section 564(b)(1) of the Act, 21 U.S.C. 360bbb-3(b) (1), unless the authorization is terminated or revoked sooner. When diagnostic testing is negative, the possibility of a false negative result should be considered in the context of a patient's recent exposures and the presence of clinical signs and symptoms consistent with COVID-19. An individual without symptoms of COVID- 19 and who is not shedding SARS-CoV-2 virus would expect to have a negative (not detected) result in this assay. Performed At: [facility] [address] [facility], [place] [id number] Carlos Young MD Ph:[phone] MRSA DNA Probe, Nasalon MRSA, DNA, Nasal NEGATIVE: MRSA DNA n ot detected by nucleic acid amplification. NEGATIVE: MRSA DNA not detected by nucleic acid amplificati [place] Comment on above: Results should be used as an adjunct to nosocomial control efforts to identify patients needing enhanced precautions. The test is not intended to identify patients with staphylococcal infections. Results should not be used to guide or monitor treatment for MRSA infections. Specimen Description .NASAL SWAB [place] APTTon 11-19-2019 aPTT Coag (Bld) [Time] 26.3 s [place] Comment on above: IV Heparin Therapy Range: 62.0-94.0 Hemoglobin A1Con 11-19-2019 Glucose [Mass/Vol] 114 mg/dL [place] Comment on above: The ADA and AACC rec ommend providing the estimated average glucose result to permit better patient understanding of their HBA1c result. HbA1c (Bld) [Mass fraction] 5.6 % 4 - 6 % [place] PTon 11-19-2019 INR Coag (PPP) [Relative time] 1.0 {INR} [place] Comment on above: Non-therapeutic Range: INR = 0.9-1.2 Therapeutic Range: Moderate Anticoagulant Intensity: INR = 2.0-3.0 High Anticoagulant Intensity: INR = 2.5-3.5 PT Coag (PPP) [Time] 12.7 s [place] URINALYSISon 11-19-2019 Bilirubin Urine Negative NEGATIVE [place] Color, UA YELLOW YELLOW [place] Glucose, Ur Negative NEGATIVE [place] Ketones Ql (U) Negative NEGATIVE [place] Leukocyte esterase Test strip Ql (U) Negative NEGATIVE [place] Nitrite, Urine Negative NEGATIVE [place] pH, UA 6.5 [place] Protein (U) [Mass/Vol] Negative NEGATIVE [place] Specific [place], UA 1.010 [place] Turbidity UA CLEAR CLEAR [place] Urinalysis Comments Microscopic exam not performed based on chemical results unless requested in original order. [place] Urine Hgb Negative NEGATIVE [place] Urobilinogen, Urine Normal Normal [place] WRIST RIGHT 3 VWSon 03-09-19 19 WRIST RIGHT 3 VWS [facility] Department of Radiology [address] [place] [address] ======== Patient Name: KYLIE RUEDA : 1950 Sex: M Age: Race: White Pt. Location: Patient Status: O Ordered Date: 03/09/2018 12:55:00 PM Completed Date: 03/09/2018 12:54 PM Requesting Provider: CARLOS EVANS Attending Provider: CARLOS EVANS Report Copy To: JENNY CAST Signs & Symptoms: S52.541D Alves's fracture of r radius, subs for clos fx w routn heal I10 History: Stephanie Comments: , , , Ordering Provider - CARLOS EVANS PA-C , Exam: WRIST RIGHT 3 [facility] ======== WRIST RIGHT 3 S 03/09/2018 12:54 PM EST SIGNS AND SYMPTOMS: S52.541D Alves's fracture of r radius, subs for clos fx w routn heal I10 TECHNOLOGIST COMMENTS: right wrist surgery x 3 months ago follow up QUESTION FOR THE RADIOLOGIST: , , , Ordering Provider - CARLOS EVANS PA-C , PROTOCOL: AP,Lateral and Oblique views were obtained. COMPARISON: January 26, 2018 FINDINGS: Soft tissues: No change Bones: No change Joints: No change IMPRESSION: Healing or healed distal radial fracture with volar plate in good alignment, superimposed upon osteoporotic skeleton with minor degenerative change similar to prior study Electronically signed by:Savannah Mark. Transcribed by: [email or web address], User Resident: Electronically Signed by: SAVANNAH MARK @ 03/09/2018 02:08 PM Normal [facility] Comment on above: Order Comment: , , = ========= , Ordering Provider - CARLOS EVANS PA-C , WRIST RIGHT 2 VWSon 01-27-20 18 WRIST RIGHT 2 VWS [facility] Department of Radiology [address] [place] [id number] ======== Patient Name: KYLIE RUEDA : 1950 Sex: M Age: Race: White Pt. Location: Patient Status: Ordered Date: 01/26/2018 1:00:00 PM Completed Date: 01/26/2018 01:02 PM Requesting Provider: CARLOS EVANS Attending Provider: Report Copy To: Signs & Symptoms: S52.541A Alves's fracture of right radius, init for clos fx I10 History: Stephanie Comments: , Views (X-RAY, WRIST): PA, Lateral , Views (X-RAY, WRIST): PA, Lateral , , , Ordering Provider - CARLOS EVANS PA-C , Exam: WRIST RIGHT 2 VWS ======== WRIST RIGHT 2 VWS 01/26/2018 1:02 PM EST SIGNS AND SYMPTOMS: S52.546O Alves's fracture of right radius, init for clos fx I10 TECHNOLOGIST COMMENTS: follow/up surgery 11/18/17 to right wrist QUESTION FOR THE RADIOLOGIST: , Views (X-RAY, WRIST): PA, Lateral , Views (X-RAY, WRIST): PA, Lateral , , , Ordering Alisha EVANS PA-C , PROTOCOL: AP,Lateral and Oblique views were obtained. COMPARISON: December 29, 2017 FINDINGS: Soft tissues: Splint removed with improved swelling Bones: Fall plating of healing distal radial fracture superimposed upon osteoporotic bone Joints: Mild wrist and thumb arthritis IMPRESSION: Healing distal radial fracture Electronically signed by:Savannah Mark. Transcribed by: [email or web address], User Resident: Electronically Signed by: SAVANNAH MARK @ 01/26/2018 01:07 PM Normal [facility] Comment on above: Order Comment: , Yany ws (X-RAY, WRIST): PA, Lateral , Views (X-RAY, WRIST): PA, Lateral , , , Ordering Provider Kathie EVANS PA-C , WRIST RIGHT 3 [facility] 12-30-19 18 WRIST RIGHT 3 S [facility] Department of Radiology [address] [place] [id number] ======== Patient Name: KYLIE RUEDA : 1950 Sex: M Age: Race: White Pt. Location: Patient Status: O Ordered Date: 12/29/2017 12:55:00 PM Completed Date: 12/29/2017 12:53 PM Requesting Provider: CARLOS EVANS Attending Provider: CARLOS EVANS Report Copy To: JENNY CAST Signs & Symptoms: S52.541A Alves's fracture of right radius, init for clos fx I10 History: Stephanie Comments: , Views (X-RAY, WRIST): PA, Lateral , Views (X-RAY, WRIST): PA, Lateral , , , Ordering Alisha EVANS PA-C , Exam: WRIST RIGHT 3 [facility] ======== WRIST RIGHT 3 [facility] 12/29/2017 12:53 PM EST SIGNS AND SYMPTOMS: S52.541A Alves's fracture of right radius, init for clos fx I10 TECHNOLOGIST COMMENTS: surgery Nov 18 2017 ortho check right wrist QUESTION FOR THE RADIOLOGIST: , Views (X-RAY, WRIST): PA, Lateral , Views (X-RAY, WRIST): PA, Lateral , , , Ordering Alisha - CARLOS EVANS PA-C , PROTOCOL: AP,Lateral and Oblique views were obtained. COMPARISON: December 01, 2017 FINDINGS: Soft tissues: Overlying volar splint Bones: Volar plating of slightly volar impacted distal radial fracture Joints: Minor scattered arthritis IMPRESSION: Healing distal radial fracture with volar plating in good alignment Electronically signed by:Savannah Mark. Transcribed by: [email or web address], User Resident: Electronically Signed by: SAVANNAH MARK @ 12/29/2017 02:02 PM Normal [facility] Comment on above: Order Comment: , Yany ws (X-RAY, WRIST): PA, Lateral , Views (X-RAY, WRIST): PA, Lateral , , , Ordering Alisha - CARLOS EVANS PA-C , WRIST RIGHT 3 [facility] 12-02-19 18 WRIST RIGHT 3 [facility] Department of Radiology [address] [place] [id number] ======== Patient Name: KYLIE RUEDA : 1950 Sex: M Age: Race: White Pt. Location: Patient Status: O Ordered Date: 12/01/2017 10:20:00 AM Completed Date: 12/01/2017 10:20 AM Requesting Provider: HEMA VILCHIS Attending Provider: HEMA VILCHIS Report Copy To: JENNY CAST Signs & Symptoms: S52.578B Oth intartic fracture of lower end of right radius, init I10 History: Stephanie Comments: , Views (X-RAY, WRIST): Radiologic Protocol , Weight Bearing?: N , With or Without Brace/Cast/Collar: With , Views (X-RAY, WRIST): Radiologic Protocol , Weight Bearing?: N , With or Without Brace/Cast/Collar: With , , , Ordering Provider - HEMA VILCHIS PA-C , Exam: WRIST RIGHT 3 VWS ======== WRIST RIGHT 3 VWS 12/01/2017 10:20 AM EDT SIGNS AND SYMPTOMS: S52.571A Oth intartic fracture of lower end of right radius, init I10 TECHNOLOGIST COMMENTS: fx 3 weeks ago from fall, surgery 2 weeks ago QUESTION FOR THE RADIOLOGIST: , Views (X-RAY, WRIST): Radiologic Protocol , Weight Bearing?: N , With or Without Brace/Cast/Collar: With , Views (X-RAY, WRIST): Radiologic Protocol , Weight Bearing?: N , ...More In Sending System PROTOCOL: AP,Lateral and Oblique views were obtained. COMPARISON: November 18, 2017 FINDINGS: Soft tissues: Swelling and volar splint Bones: Volar plating of distal radial fracture in good alignment Joints: Minor arthritis IMPRESSION: Volar plate fixation of distal radial fracture in good alignment Electronically signed by:Savannah Mark. Transcribed by: [email or web address], User Resident: Electronically Signed by: SAVANNAH MARK @ 12/01/2017 04:09 PM Normal [facility] Comment on above: Order Comment: , Vie ws (X-RAY, WRIST): Radiologic Protocol , Weight Bearing?: N , With or Without Brace/Cast/Collar: With , Views (X-RAY, WRIST): Radiologic Protocol , Weight Bearing?: N , With or Without Brace/Cast/Collar: With , , , Ordering Provider - HEMA VILCHIS PA-C , Operative Reporton 8 Operative Report MR#: [id number] S [facility] Pt. Name: Kylie Rueda Room #: 0C Discharge Date: Birthdate: 1950 OPERATIVE REPORT DATE OF SURGERY: 11/18/2017 SURGEON: Krishna Christian M.D. ASSISTANTS: Mian Colón M.D.; Robin Beatty M.D. PREOPERATIVE DIAGNOSIS: Right comminuted displaced 3 part intra-articular distal radius fracture. POSTOPERATIVE DIAGNOSIS: Right comminuted displaced 3 part intra-articular distal radius fracture. PROCEDURE PERFORMED: Open reduction and internal fixation of right distal radius fracture. SPECIMENS: None. BLOOD LOSS: Minimal. IMPLANTS: One standard Synthes distal radius volar plate with 6 distal locking screws and 1 proximal locking screw with 2 proximal cortical screws. TOURNIQUET: Applied during the case. X-RAYS: Intraoperative fluoroscopy was used throughout the case to confirm fracture reduction and hardware placement. ANESTHESIA: General. INDICATIONS FOR PROCEDURE: Mr. Rueda is a 67-year-old male, who fell 2-3 days ago while visiting his daughter. He reported immediate severe pain in the right wrist. X-rays at the outside facility demonstrated displaced distal radius fracture. He was closed reduced and placed in a sugar-tong splint. Upon outpatient followup, there was noted to be unacceptable volar angulation and radial shortening. He was therefore offered surgical intervention. DESCRIPTION OF PROCEDURE: The patient was met in the preoperative holding area. Informed consent was reviewed. He was transferred to the operating room in stable condition. He was placed supine on the table. Preoperative antibiotics were given per protocol. A surgical time-out was performed confirming the correct patient and correct site after the right upper extremity had been sterilely prepped and draped. A standard volar approach to the distal radius was used. A longitudinal incision was made over the FCR tendon. Blunt dissection was carried out using Danny scissors. The tendon sheath was incised longitudinally. The tendon was then retracted ulnarly and the dissection was carried out bluntly through the floor of the FCR tendon sheath. The FPL and FDS tendons were then gently retracted revealing a robust pronator quadratus muscle. The pronator quadratus was then incised sharply off the radial aspect of the radius. A holliday elevator was used to further peel back the pronator quadratus. Once the fracture was well visualized, both proximally and distally. A curette was used to remove any fracture hematoma as well as a [place]. Irrigation was then used. The fracture was then reduced and noted to be in acceptable alignment on fluoroscopy. We then applied the Synthes volar distal radius plate. Once we achieved excellent positioning, we fastened the plate to the bone using a single cortical screw in the shaft. We then sequentially drilled, measured and filled the distal locking screws in standard fashion, confirming screw placement on x-ray. The fracture reduction was maintained and we returned to the shaft to place 1 additional locking and 1 additional cortical screw for a total of 3 proximal screws. The wound was then copiously irrigated with Betadine, normal saline followed by plain normal saline and closed the subcutaneous tissue with 3-0 Vicryl followed by 3-0 Novafil in horizontal mattress fashion. A sterile dressing was applied. A well-padded volar slab splint was applied. The patient was then awoken from general anesthesia. The patient will be nonweightbearing on the right upper extremity. He will follow up with Dr. Christian in 10-14 days. He was provided a prescription for [place] to be taken for pain. He may resume all other home medications. All questions and concerns were addressed with the patient and his family prior to their discharge from PACU. There were no complications during this case. Dr. Christian was present for all critical portions of the case and made all decisions regarding this patient's care. Electronically Signed by: Krishna Christian M.D. 11/20/2017 11:09 A Krishna Christian M.D. I was present for the holliday and critical portions and I was otherwise immediately available to assist. Date Dict: 11/18/2017/10:54 A/Mian Colón MD Date Trans: 11/18/2017 09:15 P/imanio [id number] cc: Jenny Cast M.D. [address] [facility] [address] Normal [facility] POC GLUCOSE LABon 11-18-2017 Glucose mass conc 118 mg/dL High 70-100 [facility] Comment on above: Performed By: #### 8 [id number] #### [address] WRIST RIGHT 2 VWSon 11-19-19 18 WRIST RIGHT 2 S [facility] Department of Radiology [address] [place] [id number] ======== Patient Name: KYLIE RUEDA : 1950 Sex: M Age: Race: White Pt. Location: OUTP Patient Status: O Ordered Date: 11/18/2017 10:15:00 AM Completed Date: 11/18/2017 10:52 AM Requesting Provider: KRISHNA CHRISTIAN Attending Provider: KRISHNA CHRISTIAN Report Copy To: Signs & Symptoms: ORIF RIGHT DISTAL RADIUS History: ORIF RIGHT DISTAL RADIUS Comments: ORIF RIGHT DISTAL RADIUS Exam: WRIST RIGHT 2 VWS ======== WRIST RIGHT 2 VWS 11/18/2017 10:52 AM EDT SIGNS AND SYMPTOMS: ORIF RIGHT DISTAL RADIUS TECHNOLOGIST COMMENTS: RT WRIST ORIF 29 SECS OF FLUORO USED BY DR CHRISTIAN QUESTION FOR THE RADIOLOGIST: ORIF RIGHT DISTAL RADIUS PROTOCOL: AP(PA) and Lateral views were obtained. COMPARISON: None FINDINGS: Soft tissues: Bones: Joints: IMPRESSION: Documentation Electronically signed by:Savannah Mark. Transcribed by: [email or web address], User Resident: Electronically Signed by: SAVANNAH MARK @ 11/18/2017 12:08 PM Normal [facility] Comment on above: Order Comment: ORIF RIGHT DISTAL RADIUS APTTon 11-15-2017 aPTT Coag time (Bld) 29.2 s Normal 25.0-35.0 [facility] Comment on above: Order Comment: patie nt made aware may not be covered by insurance patient made aware may not be covered by insurance patient made aware may not be covered by insurance patient made aware may not be covered by insurance patient made aware may not be covered by insurance patient made aware may not be covered by insurance Result Comment: ALL RESULTS MUST BE INTERPRETED WITH RESPECT TO BLOOD DRAWING ARTIFACT OR DILUTION ERROR OF ANTICOAGULANT AT THE TIME OF SAMPLING. THE APTT SHOULD NOT BE USED TO MONITOR UNFRACTIONATED HEPARIN THERAPY, THIS LABORATORY NO LONGER HAS AN ESTABLISHED THERAPEUTIC RANGE BASED ON THE APTT. IT IS RECOMMENDED THAT THE [facility] - HEPARIN ASSAY (ANTI-XA ACTIVITY) BE USED FOR THIS PURPOSE. Performed By: #### 5 6101, [id number] #### [facility] [address] BASIC METABOLIC PANELon 10-0 Calcium mass conc 9.4 mg/dL Normal 8.6-10.3 [facility] Comment on above: Performed By: #### 0 0071 #### [facility] [address] [place] [address], [facility] Chloride molar conc 99 mmol/L Normal 98-107 [facility] Comment on above: Performed By: #### 0 0071 #### [facility] [address] [place] [address], [place] CO2 molar conc 32 mmol/L High 21-31 [facility] Comment on above: Performed By: #### 0 0071 #### [facility] [address] [place] [address], [facility] Creatinine mass conc 0.88 mg/dL Normal 0.70-1.30 [facility] Comment on above: Performed By: #### 0 0071 #### [facility] [address] [place] [address], [place] GFR/1.73 sq M predicted among blacks MDRD vol rate/area (S/P/Bld) mL/min/{1.73_m2} Normal >60 [facility] Comment on above: Performed By: #### 0 0071 #### [facility] [address] [place] [address], [facility] GFR/1.73 sq M predicted among non-blacks MDRD vol rate/area (S/P/Bld) mL/min/{1.73_m2} Normal >60 [facility] Comment on above: Performed By: #### 0 0071 #### [facility] [address] [place] [address], [place] Glucose mass conc 109 mg/dL High 70-100 [facility] Comment on above: Performed By: #### 0 0071 #### [facility] [address] [place] [address], [place] Potassium molar conc 4.7 mmol/L Normal 3.5-5.1 [facility] Comment on above: Performed By: #### 0 0071 #### [facility] [address] Sodium molar conc 136 mmol/L Normal 136-145 [facility] Comment on above: Performed By: #### 0 0071 #### [facility] [address] Urea nitrogen mass conc 14 mg/dL Normal 7-25 [facility] Comment on above: Performed By: #### 0 0071 #### [facility] [address] CBC W/DIFFon 11-15-2017 ABS BASOPHILS 0.1 10*3/uL Normal 0.0-0.2 [facility] Comment on above: Performed By: #### 5 0103 #### [facility] [address] ABS IMM GRANS 0.0 10*3/uL Normal 0.0-0.2 [facility] Comment on above: Performed By: #### 5 0103 #### [facility] [address] ABS NEUTROPHILS 4.6 10*3/uL Normal 1.6-7.6 [facility] Comment on above: Performed By: #### 5 0103 #### [facility] [address] Basophils #/vol (Bld) 0.7 % Normal 0.0-1.0 [facility] Comment on above: Performed By: #### 5 0103 #### [facility] [address] Eosinophils #/vol (Bld) 0.4 10*3/uL Normal 0.0-0.5 [facility] Comment on above: Performed By: #### 5 0103 #### [facility] [address] Eosinophils/100 WBC (Bld) 4.1 % Normal 0.0-6.0 [facility] Comment on above: Performed By: #### 5 0103 #### [facility] [address] Erythrocyte distribution width Ratio (RBC) 12.3 % Normal 11.5-15.0 [facility] Comment on above: Performed By: #### 5 0103 #### [facility] [address] Hematocrit Volume Fraction (Bld) 34.9 % Low 39.0-50.0 [facility] Comment on above: Performed By: #### 5 0103 #### [facility] [address] Hemoglobin mass conc (Bld) 11.7 g/dL Low 13.0-17.0 [facility] Comment on above: Performed By: #### 5 0103 #### [facility] [address] IMMATURE GRANS 0.2 % Normal 0.0-1.0 [facility] Comment on above: Performed By: #### 5 0103 #### [facility] [address] Lymphocytes #/vol (Bld) 2.5 10*3/uL Normal 1.2-4.0 [facility] Comment on above: Performed By: #### 5 0103 #### [facility] [address] Lymphocytes/100 WBC (Bld) 29.0 % Normal 20.0-45.0 [facility] Comment on above: Performed By: #### 5 3 #### [facility] [address] MCH Entitic mass (RBC) 29.3 pg Normal 27.0-33.0 [facility] Comment on above: Performed By: #### 5 0103 #### [facility] [address] MCHC mass conc (RBC) 33.5 g/dL Normal 32.0-35.0 [facility] Comment on above: Performed By: #### 102 #### [facility] [address] MCV Entitic volume (RBC) 87.3 fL Normal 82.0-98.0 [facility] Comment on above: Performed By: #### 102 #### [facility] [address] Monocytes #/vol (Bld) 1.0 10*3/uL Normal 0.1-1.0 Th [facility] Comment on above: Performed By: #### 102 #### [facility] [address] MONOS 12.0 % Normal 5.0-12.0 [facility] Comment on above: Performed By: #### 102 #### [facility] [address] Neutrophils/100 WBC (Bld) 54.0 % Normal 40.0-72.0 [facility] Comment on above: Performed By: #### 102 #### [facility] [address] Nucleated RBC/100 WBC Ratio (Bld) 0 % Normal 0-0 [facility] Comment on above: Performed By: #### 5 3 #### [facility] [address] PLAT CNT 288 10*3/uL Normal 150-400 [facility] Comment on above: Performed By: #### 102 #### [facility] [address] [place] [address], [place] RBC #/vol (Bld) 4.00 10*6/uL Low 4.20-5.70 [facility] Comment on above: Performed By: #### 5 0103 #### [facility] [address] [facility]. [address] WBC #/vol (Bld) 8.53 10*3/uL Normal 4.00-10.60 [facility] Comment on above: Performed By: #### 5 0103 #### [facility] [address] PROTHROMBIN TIMEon 8 INR Coag RelTime (PPP) 1.01 {INR} Normal 0.91-1.16 [facility] Comment on above: Order Comment: Patie nt made aware may not be covered by insurance Patient made aware may not be covered by insurance Patient made aware may not be covered by insurance Patient made aware may not be covered by insurance Patient made aware may not be covered by insurance Patient made aware may not be covered by insurance Result Comment: ACCC P RECOMMENDED INR FOR WARFARIN THERAPY -------- ------- CONDITION INR PROPHYLAXIS OF VENOUS THROMBOSIS 2-3 (HIGH-RISK SURGERY) TREATMENT OF VENOUS THROMBOSIS 2-3 TREATMENT OF PULMONARY EMBOLISM 2-3 PREVENTION OF SYSTEMIC EMBOLISM: 2-3 ACUTE MYOCARDIAL INFARCTION TISSUE HEART VALVES VALVULAR HEART DISEASE ATRIAL FIBRILLATION RECURRENT SYSTEMIC EMBOLISM MECHANICAL HEART VALVE 2.5-3.5 FROM: ORAL ANTICOAGULANTS. MECHANISM OF ACTION, CLINICAL EFFECTIVENESS, AND OPTIMAL THERAPEUTIC RANGE. CHEST 1995;108:[id number]. Performed By: #### 5 6101, [id number] #### [facility] [address] [place] [address], [facility] Prothrombin time (PT) Coag time (PPP) 13.3 s Normal 12.3-14.8 [facility] Comment on above: Order Comment: Patie nt made aware may not be covered by insurance Patient made aware may not be covered by insurance Patient made aware may not be covered by insurance Patient made aware may not be covered by insurance Patient made aware may not be covered by insurance Patient made aware may not be covered by insurance Result Comment: ALL RESULTS MUST BE INTERPRETED WITH RESPECT TO BLOOD DRAWING ARTIFACT OR DILUTION ERROR OF ANTICOAGULANT AT THE TIME OF SAMPLING. Performed By: #### 5 6101, [address]6086 #### [facility] [address] PAIN MANAGEMENT DRUG PANEL 2 [id number] 05-04-2017 6-ACETYLMORPHINE Not Detected Normal [facility] Comment on above: Order Comment: Please call [facility] at [phone] for Supervisor Electronic Coils consultation or assistance with interpretation if needed. 7-AMINOCLONAZEPAM Not Detected Normal [facility] Comment on above: Order Comment: Please call [facility] at [phone] for Supervisor Electronic Coils consultation or assistance with interpretation if needed. ALPRAZOLAM Not Detected Normal [facility] Comment on above: Order Comment: Please call [facility] at [phone] for Supervisor [employer] consultation or assistance with interpretation if needed. AMPHETAMINE Not Detected Normal [facility] Comment on above: Order Comment: Please call [facility] at [phone] for Supervisor Electronic Coils consultation or assistance with interpretation if needed. XZGKL-QF-PAITIFFTZY Not Detected Normal [facility] Comment on above: Order Comment: Please call [facility] at [phone] for Supervisor Electronic Coils consultation or assistance with interpretation if needed. BARITURATES Not Detected Normal [facility] Comment on above: Order Comment: Please call [facility] at [phone] for Supervisor Electronic Coils consultation or assistance with interpretation if needed. Benzoylecgonine Ql (U) Not Detected Normal [facility] Comment on above: Order Comment: Please call [facility] at [phone] for Supervisor Electronic Coils consultation or assistance with interpretation if needed. BUPRENORPHINE Not Detected Normal [facility] Comment on above: Order Comment: Please call [facility] at [phone] for Supervisor Electronic Coils consultation or assistance with interpretation if needed. CLONAZEPAM Not Detected Normal [facility] Comment on above: Order Comment: Please call [facility] at [phone] for Supervisor Electronic Coils consultation or assistance with interpretation if needed. CODEINE URINE Not Detected Normal [facility] Comment on above: Order Comment: Please call [facility] at [phone] for Supervisor Electronic Coils consultation or assistance with interpretation if needed. CREATININE URINE 102.9 mg/dL Normal 20.0-400.0 [facility] Comment on above: Order Comment: Please call [facility] at [phone] for Supervisor Electronic Coils consultation or assistance with interpretation if needed. DIAZEPAM Not Detected Normal [facility] Comment on above: Order Comment: Please call [facility] at [phone] for Supervisor Electronic Coils consultation or assistance with interpretation if needed. EER PAIN MGT DRUG PANEL, HIGH RES See Note Normal [facility] Comment on above: Order Comment: Please call [facility] at [phone] for Supervisor Electronic Coils consultation or assistance with interpretation if needed. Result Comment: Acce ss [employer] Enhanced Report using either link below: -Direct access: [email or web address] -Enter Username, Password: [email or web address] Username: [email or web address] Password: [email or web address] Performed by [facility] [employer] [facility], [address] [place] [id number] [email or web address], Vinayak Marin MD - Lab. Director ETHYL GLUCURONIDE Not Detected Normal [facility] Comment on above: Order Comment: Please call [facility] [employer] [facility] [facility] at [phone] for Supervisor Electronic Coils consultation or assistance with interpretation if needed. FENTANYL Not Detected Normal [facility] Comment on above: Order Comment: Please call [facility] at [phone] for Supervisor Electronic Coils consultation or assistance with interpretation if needed. HYDROCODONE Not Detected Normal [facility] Comment on above: Order Comment: Please call [facility] at [phone] for Supervisor Electronic Coils consultation or assistance with interpretation if needed. HYDROMORPHONE Present Normal [facility] Comment on above: Order Comment: Please call [facility] at [phone] for Supervisor Electronic Coils consultation or assistance with interpretation if needed. LORAZEPAM Not Detected Normal [facility] Comment on above: Order Comment: Please call [facility] at [phone] for Supervisor Electronic Co[employer] consultation or assistance with interpretation if needed. MARIJUANA METABOLITE Not Detected Normal e [facility] Comment on above: Order Comment: Please call [facility] at [phone] for Supervisor Electronic Co[employer] consultation or assistance with interpretation if needed. MDA Not Detected Normal [facility] Comment on above: Order Comment: Please call [facility] at [phone] for Supervisor Electronic Coils consultation or assistance with interpretation if needed. MDEA- SHEEBA Not Detected Normal [facility] Comment on above: Order Comment: Please call [facility] at [phone] for Supervisor Electronic Coils consultation or assistance with interpretation if needed. MDMA- ECSTASY Not Detected Normal [facility] Comment on above: Order Comment: Please call [facility] at [phone] for Supervisor Electronic Coils consultation or assistance with interpretation if needed. MEPERIDINE Not Detected Normal [facility] Comment on above: Order Comment: Please call [facility] at [phone] for Supervisor Electronic Coils consultation or assistance with interpretation if needed. Methadone Ql (U) Not Detected Normal [facility] Comment on above: Order Comment: Please call [facility] at [phone] for Supervisor Electronic Coils consultation or assistance with interpretation if needed. METHAMPHETAMINE Not Detected Normal [facility] Comment on above: Order Comment: Please call [facility] at [phone] for Supervisor Electronic Coils consultation or assistance with interpretation if needed. METHYLPHENIDATE Not Detected Normal [facility] Comment on above: Order Comment: Please call [facility] at [phone] for Supervisor Electronic Coils consultation or assistance with interpretation if needed. MIDAZOLAM Not Detected Normal [facility] Comment on above: Order Comment: Please call [facility] at [phone] for Supervisor Electronic Coils consultation or assistance with interpretation if needed. MORPHINE Not Detected Normal [facility] Comment on above: Order Comment: Please call [facility] at [phone] for Supervisor Electronic Co[employer] consultation or assistance with interpretation if needed. NORBUPRENORPHINE Not Detected Normal [facility] Comment on above: Order Comment: Please call [facility] at [phone] for Supervisor Electronic Coils consultation or assistance with interpretation if needed. NORDIAZEPAM Present Normal [facility] Comment on above: Order Comment: Please call [facility] at [phone] for Supervisor Electronic Co[employer] consultation or assistance with interpretation if needed. NORFENTANYL Not Detected Normal [facility] Comment on above: Order Comment: Please call [facility] at [phone] for Supervisor Electronic Coils consultation or assistance with interpretation if needed. NORHYDROCODONE Not Detected Normal [facility] Comment on above: Order Comment: Please call [facility] at [phone] for Supervisor Electronic Coils consultation or assistance with interpretation if needed. NOROXYCODONE Present Normal [facility] Comment on above: Order Comment: Please call [facility] at [phone] for Supervisor Electronic Coils consultation or assistance with interpretation if needed. NOROXYMORPHONE Not Detected Normal [facility] Comment on above: Order Comment: Please call [facility] at [phone] for Supervisor Electronic Coils consultation or assistance with interpretation if needed. OXAZEPAM Present Normal [facility] Comment on above: Order Comment: Please call [facility] at [phone] for Supervisor Electronic Coils consultation or assistance with interpretation if needed. OXYCODONE Present Normal [facility] Comment on above: Order Comment: Please call [facility] at [phone] for Supervisor Electronic Coils consultation or assistance with interpretation if needed. OXYMORPHONE Not Detected Normal [facility] Comment on above: Order Comment: Please call [facility] at [phone] for Supervisor Electronic Coils consultation or assistance with interpretation if needed. PAIN MANAGEMENT DRUG PANEL See Below Normal [facility] Comment on above: Order Comment: Please call [facility] at [phone] for Supervisor Electronic Coils consultation or assistance with interpretation if needed. Result Comment: Meth odology: Qualitative Enzyme Immunoassay and Qualitative Liquid Chromatography-Time of Flight-Mass Spectrometry or Tandem Mass Spectrometry, Quantitative Spectrophotometry The absence of expected drug(s) and/or drug metabolite(s) may indicate non-compliance, inappropriate timing of specimen collection relative to drug administration, poor drug absorption, diluted/adulterated urine, or limitations of testing. The concentration must be greater than or equal to the cutoff to be reported as present. If specific drug concentrations are required, contact the laboratory within two weeks of specimen collection to request quantification by a second analytical technique. Interpretive questions should be directed to the laboratory. Results based on immunoassay detection that do not match clinical expectations should be interpreted with caution. Confirmatory testing by mass spectrometry for immunoassay-based results is available, if ordered within two weeks of specimen collection. Additional charges apply. For medical purposes only; not valid for forensic use. This test was developed and its performance characteristics determined by [facility] [employer] [facility]. The U.S. Food and Drug Administration has not approved or cleared this test; however, FDA clearance or approval is not currently required for clinical use. The results are not intended to be used as the sole means for clinical diagnosis or patient management decisions. PCP Not Detected Normal [facility] Comment on above: Order Comment: Please call [facility] at [phone] for Supervisor Electronic Coils consultation or assistance with interpretation if needed. PHENTERMINE Not Detected Normal [facility] Comment on above: Order Comment: Please call [facility] at [phone] for Supervisor Electronic Coils consultation or assistance with interpretation if needed. Protein mass conc Not Detected Normal [facility] Comment on above: Order Comment: Please call [facility] at [phone] for Supervisor Electronic Coils consultation or assistance with interpretation if needed. Result Comment: The carisoprodol immunoassay has cross-reactivity to carisoprodol and meprobamate. TAPENTADOL Not Detected Normal [facility] Comment on above: Order Comment: Please call [facility] at [phone] for Supervisor Electronic Coils consultation or assistance with interpretation if needed. VUXHYOLCIT-Y-WRXM Not Detected Normal [facility] Comment on above: Order Comment: Please call [facility] at [phone] for Supervisor Electronic Coils consultation or assistance with interpretation if needed. TEMAZEPAM Present Normal [facility] Comment on above: Order Comment: Please call [facility] at [phone] for Supervisor Electronic Coils consultation or assistance with interpretation if needed. TRAMADOL Not Detected Normal [facility] Comment on above: Order Comment: Please call [facility] at [phone] for Supervisor Electronic Coils consultation or assistance with interpretation if needed. ZOLPIDEM Not Detected Normal [facility] Comment on above: Order Comment: Please call [facility] at [phone] for [employer]visor [employer] consultation or assistance with interpretation if needed. Vital Signs Date Time Vital Sign Value Performing Clinician Facility 12-01-2021 14:28-0400 SaO2% (BldA) [Mass fraction] 89.9 % [facility] [place] Auto SS 06-09-2021 11:04-0400 Blood Pressure Location Cintia Alves Jr. [facility] 06-09-2021 11:04-0400 Diastolic blood pressure 76 mm[Hg] Cintia Alves Jr. [facility] 06-09-2021 11:04-0400 Heart rate 63 /min Cintia Alves Jr. [facility] 06-09-2021 11:04-0400 Respiratory rate 16 /min Cintia Alves Jr. [facility] 06-09-2021 11:04-0400 Systolic blood pressure 120 mm[Hg] Cintia Alves Jr. [facility] [place] 05-12-2021 08:37-0400 Blood Pressure Location Cintia Alves Jr. [facility] 05-12-2021 08:37-0400 Body temperature 97.52 [degF] Cintia Alves Jr. [facility] 05-12-2021 08:37-0400 Diastolic blood pressure 73 mm[Hg] Cintia Alves Jr. [facility] 05-12-2021 08:37-0400 Heart rate 79 /min Cintia Alves Jr. [facility] 05-12-2021 08:37-0400 Mean blood pressure 87 mm[Hg] Cintia Alves Jr. [facility] 05-12-2021 08:37-0400 Systolic blood pressure 115 mm[Hg] Cintia Alves Jr. [facility] 05-12-2021 08:36-0400 Blood Pressure Location Cintia Alves Jr. [facility] 05-12-2021 08:36-0400 Diastolic blood pressure 74 mm[Hg] Cintia Alves Jr. [facility] 05-12-2021 08:36-0400 Heart rate 78 /min Cintia Alves Jr. [facility] 05-12-2021 08:36-0400 Mean blood pressure 93 mm[Hg] Cintia Alves Jr. [facility] 05-12-2021 08:36-0400 Respiratory rate 18 /min Cintia Alves Jr. [facility] 05-12-2021 08:36-0400 SaO2% (BldA) [Mass fraction] 94 % Cintia Alves Jr. [facility] 05-12-2021 08:36-0400 Systolic blood pressure 132 mm[Hg] Cintia Alves Jr. [facility] 12-04-2019 07:25-0400 Body Temperature 98.6 [degF] [facility], [place] 12-04-2019 07:25-0400 BP Diastolic 86 mm[Hg] [facility] [place] 12-04-2019 07:25-0400 BP Systolic 158 mm[Hg] [facility] [place] 12-04-2019 07:25-0400 Pulse (Heart Rate) 63 /min [facility] 12-04-2019 07:25-0400 Pulse Oximetry 94 % [facility] [place] 12-04-2019 07:25-0400 Respiratory Rate 16 /min [facility] 12-04-2019 04:00-0400 BMI (Body Mass Index) 34.07 kg/m2 [facility], [place] 12-04-2019 04:00-0400 Body weight 110.81 kg [facility] [place] 12-03-2019 06:32-0400 Height 180.3 cm [facility] [place] 11-19-2019 13:41-0400 BP Diastolic 95 mm[Hg] [address] , [place] 11-19-2019 13:41-0400 BP Systolic 151 mm[Hg] [address] , [place] 11-19-2019 12:18-0400 BMI (Body Mass Index) 32.62 kg/m2 [address], [place] 11-19-2019 12:18-0400 Body Temperature 98.1 [degF] [address], [place] 11-19-2019 12:18-0400 Body weight 106.[address] , [place] 11-19-2019 12:18-0400 Height 180.[address]- [place] , [place] 11-19-2019 12:18-0400 Pulse (Heart Rate) 67 /min [facility] [place], [place] 11-19-2019 12:18-0400 Pulse Oximetry 98 % [facility] [place] , [place] 11-19-2019 12:18-0400 Respiratory Rate 18 /min [facility] [place] Encounters Encounter Date Encounter Type Care Provider Facility Start: 02-10-2023 End: 02-11-2023 ambulatory JENNY CAST [facility] Start: 04-19-2022 End: 04-19-[address] JENNY CAST Facility:[facility] Start: 01-24-2022 End: 01-24-[address] BECK SAENZ Facility: Start: 12-01-2021 End: 12-02-2021 ambulatory VERNELL WILKERSON [facility] Start: 12-01-2021 End: 12-02-2021 ambulatory VERNELL WILKERSON . Facility: Start: 12-01-2021 End: 12-01-2021 Lab Drop off VERNELL WILKERSON [facility] Start: 11-09-2021 End: 11-10-[address] KAY MARROQUIN Facility: Start: 08-18-2021 End: 08-19-2021 ambulatory Cintia Alves Facility:[facility] Start: 08-18-2021 End: 08-18-2021 Patient encounter procedure Cintia Alves Jr. [facility] Start: 06-09-2021 ambulatory Cintia Alves Facility:[facility] Start: 06-09-2021 End: 06-10-2021 ambulatory Cintia Alves Facility:[facility] Start: 06-09-2021 End: 06-09-2021 Patient encounter procedure Cintia Alves Jr. [facility] Start: 05-21-2021 End: 05-21-2021 ambulatory Cintia Alves [facility] Start: 05-20-2021 Encounter for preprocedural cardiovascular examination DR CINTIA Banuelos [facility] Start: 05-16-2021 End: 05-17-[address] CINTIA Banuelos Facility: Start: 05-15-2021 ambulatory Cintia Alves Facility:[facility] Start: 05-12-2021 End: 05-13-2021 ambulatory Cintia Alves [facility] Start: 05-12-2021 End: 05-12-2021 Patient encounter procedure Cintia Alves Jr. [facility] Start: 04-30-2021 ambulatory Cintia Alves Facility:[facility] Start: 04-28-2021 End: 04-29-2021 ambulatory Cintia Alves Facility:[facility] Start: 04-10-2021 End: 04-13-2021 ambulatory JENNY Young [facility] Start: 04-02-2021 End: 04-03-2021 ambulatory Cintia Alves Facility:[facility] Start: 03-31-2021 End: 04-03-2021 ambulatory AZUCENA EVANS [facility] Start: 02-25-2021 ambulatory Cintia Alves Facility:[facility] Start: 02-24-2021 End: 02-25-2021 ambulatory Cintia Alves Facility:[facility] Start: 01-13-2021 ambulatory Cintia Alves Facility:[facility] Start: 12-03-2019 End: 12-04-2019 Subsequent hospital visit by physician Boy Polk Work Phone: [facility] Start: 11-29-2019 End: 12-03-2019 Subsequent hospital visit by physician Kathya Hurley Rm 4 [facility] PRE[facility]ADMIT [facility] Start: 11-19-2019 End: 11-23-2019 Subsequent hospital visit by physician Kathya Hurley Rm 1 [facility] Start: 03-09-2018 End: 03-10-2018 Patient encounter procedure CARLOS EVANS Facility:[facility] Start: 01-26-2018 End: 01-27-2018 Patient encounter procedure CARLOS EVANS Facility:[facility] Start: 12-29-2017 End: 12-30-2017 Patient encounter procedure CARLOS EVANS Facility:[facility] Start: 12-01-2017 End: 12-02-2017 Patient encounter procedure HEMA VILCHIS Facility:[facility] Start: 11-18-2017 End: 11-19-2017 Patient encounter procedure KRISHNA CHRISTIAN Facility:[facility] Start: 11-15-2017 Encounter for other specified special examinations CARLOS EVANS [facility] Start: 11-15-2017 End: 11-16-2017 Patient encounter procedure CARLOS EVANS Facility:[facility] Start: 07-25-2017 End: 07-26-2017 Patient encounter procedure JAYESH LAZO Facility:[facility] Start: 05-27-2017 End: 05-28-2017 Patient encounter procedure TONJA MARY Facility:[facility] Start: 05-04-2017 End: 05-05-2017 Patient encounter procedure Maira Alyssa Facility:[facility] Encounter for other specified special examinations CARLOS EVANS [facility] Procedures Date Procedure Procedure Detail Performing Clinician Start: 05-21-2021 Circumcision Cintia tomlin Jr. Start: 12-04-2019 BASIC METABOLIC PANE L W/ REFLEX TO MG FOR LOW K Showkat Ahmad Start: 12-04-2019 Blood count complete automated Showkat Ahmad Start: 12-04-2019 Prothrombin time Showka t Ahmad Start: 12-03-2019 Radex spine lumbosac ral 2/3 views Boy Polk Work Phone: Start: 12-03-2019 Fluoroscopy during operation Boy Polk Work Phone: Start: 12-03-2019 End: 12-03-2019 Njx dx/ther sbst intrlmnr crv/thrc w/img gdn Boy Polk Work Phone: Start: 11-29-2019 COVID-19 AMBULATORY Andi s E Bishop Work Phone: Start: 11-19-2019 Hemoglobin glycosylated a1c Boy Polk Work Phone: Start: 11-19-2019 Prothrombin time Boy Polk Work Phone: Start: 11-19-2019 Thromboplastin time partial plasma/whole blood Boy Buffy Polk Work Phone: Start: 11-19-2019 Urnls dip stick/tabl et rgnt auto w/o microscopy Boy Buffy Polk Work Phone: Start: 11-19-2019 Iadna s aureus methi cillin resist amp probe tq Boy Buffy Polk Work Phone: Start: 11-18-2017 ANESTH LOWER ARM SURGERY JOANNA KELLY Start: 11-18-2017 TREAT FX RAD EXTRA-ARTICUL KRISHNA EBRAHEIM Arthroscopy of knee Cintia ashby Jr. Catheterization of b oth left and right heart Cintia Alves Jr. Complex reconstructi on operations on wrist and hand(excluding arthroplasty) Cintia Alves Jr. History of hernia repair Mahesh Alves Jr. Pain management medi cation delivery system pump (physical object) Cintia Alves Jr. Plan of Treatment Date Care Activity Detail Author Start: 10-31-2029 DTaP/Tdap/Td vaccine (2 - Td) DTaP/Tdap/Td vaccine (2 - Td) [place] Start: 08-24-2022 ambulatory Ambulatory Facility:[facility] Start: 12-03-2019 End: 12-03-2019 Hospital Encounter [facility] Comment on above: INTRATHECAL PUMP REP LACEMENT AND CATHETER REVISION Start: 11-29-2019 End: 11-29-2019 Appointment 11/29/2019 Appointment Pre-Admission Testing [facility] PRE[facility]MIT [facility] Start: 11-19-2019 Annual Wellness Visi t (AWV) Annual Wellness Visit (AWV) [place] Start: 10-16-2019 Influenza vaccination Flu vaccine (# 1) [place] Start: 1998 Screening for malign ant neoplasm of colon Colon cancer screen colonoscopy [place] Start: 08-29-1967 DTaP/Tdap/Td vaccine (1 - Tdap) DTaP/Tdap/Td vaccine (1 - Tdap) [place] Start: 1958 Lipid panel Lipid screen [place], [place] Start: 1948 Abdominal aortic aneurysm screening AAA screen [place], [place] Start: 1948 Creatinine measurement Creatinine mo nitoring [place], [place] Start: 1948 Hepatitis C screening Hepatitis C sc reen [place], [place] Start: 1948 Potassium monitoring Potassium monit oring [place] Continuous pulse oximetry Pulse oximetry, continuous Respiratory Care Routine Every 4hr until discontinued starting 12/03/2019 [place] Comment on above: Every 4hr until disc ontinued starting 12/03/2019 End: 11-29-2019 COVID- COVID-19 Lab Routine One Time for 1 Occurrences starting 11/29/2019 until 11/29/2019 [place] Comment on above: One Time for 1 Occur rences starting 11/29/2019 until 11/29/2019 Intermittent pulse oximetry Pulse Oximetry Spot Check Respiratory Care Routine As Needed until discontinued starting 12/03/2019 [place] Comment on above: As Needed until disc ontinued starting 12/03/2019 Oxygen therapy [[facility] Data Set] Initiate Oxygen Therapy Protocol Respiratory Care Routine Daily until discontinued starting 12/03/2019 [place] Comment on above: Daily until disconti nued starting 12/03/2019 Immunizations Immunization Date Immunization Notes Care Provider Hallie nixon 07-16-2020 SARS-CoV-2 (COVID-19 ) Ad26 vaccine, recombinant Cintia Alves Jr. [facility] 06-18-2020 SARS-CoV-2 (COVID-19 ) Ad26 vaccine, recombinant Cintia Alves Jr. [facility] 11-01-2019 Influenza, Quadv, adjuvanted, 65 yrs +, IM, PF (Fluad) [address] 11-01-2019 tetanus toxoid, redu rich diphtheria toxoid, and acellular pertussis vaccine, adsorbed [address] 10-26-2017 Seasonal trivalent influenza vaccine, adjuvanted, preservative free [address], [place] 10-26-2017 zoster vaccine recombinant [address], [place] 06-22-2017 zoster vaccine recombinant [address], [place] 09-27-2016 Seasonal trivalent influenza vaccine, adjuvanted, preservative free [address], [place] 11-06-2015 influenza, high dose seasonal, preservative-free [address], [place] 11-06-2015 pneumococcal conjuga te vaccine, [address], [place] 10-31-2015 pneumococcal conjuga te vaccine, [address], [place] 10-28-2014 influenza, high dose seasonal, preservative-free [address], [place] 10-18-2013 pneumococcal polysaccharide vaccine, [address], [place] Payers Date Payer Category Payer Medicare [id number] 1959 Unknown [id number] 1948 Unknown [id number] 2.16.8 40.1.133365.3.579.2. 1948 Unknown [id number] 2.16.8 40.1.034284.3.579.2.647 1948 Unknown [id number] 2.16.8 40.1.148761.3.579.2.647 1948 Unknown [id number] 2.16.8 40.1.016809.3.579.2.647 1948 Unknown [id number] 2.16.8 40.1.898336.3.579.2.647 1948 Unknown [id number] 2.16.8 40.1.982103.3.579.2.647 1948 Unknown [id number] 2.16.8 40.1.731467.3.579.2.647 1948 Unknown [id number] 2.16.8 40.1.099341.3.579.2.647 1948 Unknown [id number] 2.16.8 40.1.530882.3.579.2.647 1948 Unknown [id number] 2.16.8 40.1.896956.3.579.2.177 1948 Unknown [id number] 2.16.8 40.1.272490.3.579.2.177 1948 Unknown [id number] 2.16.8 40.1.733990.3.579.2.177 1948 Unknown [id number] 2.16.8 40.1.564232.3.579.2. 1948 Unknown [id number] 2.16.8 40.1.471330.3.579.2.72 1948 Unknown [id number] 2.16.8 40.1.898781.3.579.2.72 1948 Unknown [id number] 2.16.8 40.1.844534.3.579.2.72 1948 Unknown [id number] 2.16.8 40.1.376168.3.579.2.727 1948 Unknown [id number] 2.16.8 40.1.953283.3.579.2.727 1948 Unknown [id number] 2.16.8 40.1.176052.3.579.2.72 1948 Unknown [id number] 2.16.8 40.1.292457.3.579.2.727 1948 Unknown [id number] 2.16.8 40.1.307233.3.579.2.72 1948 Unknown [id number] 2.16.8 40.1.947192.3.579.2.72 1948 Unknown [id number] 2.16.8 40.1.159714.3.579.2.727 1948 Unknown [id number] 2.16.8 40.1.936625.3.579.2.727 1948 Unknown [id number] 2.16.8 40.1.591825.3.579.2.727 1948 Unknown [id number] 2.16.84 0.1.823967.3.579.2.593 1948 Unknown [id number] 2.16.84 0.1.983754.3.579.2.593 1948 Unknown [id number] 2.16.84 0.1.754848.3.579.2.593 1948 Unknown [id number] 2.16.84 0.1.796896.3.579.2.593 1948 Unknown [id number] 2.16.84 0.1.727059.3.579.2.593 1948 Unknown [id number] 2.16.84 0.1.410348.3.579.2.1286 Medicare [id number] Social History Date Type Detail Facility Start: 11-19-2019 End: 06-09-2021 Tobacco smoking status NHIS Former smoker [place], [place] History of tobacco use Cigarette Smoker M [place], [place] Start: 11-19-2019 End: 12-03-2019 Tobacco use and exposure Never used [place] Start: 11-19-2019 End: 12-03-2019 Alcohol intake Ex-drinker (finding) [facility] Start: 11-19-2019 Tobacco Comment quit smoking 1 2 years ago (written 11/19/2019) [place] Sex Assigned At Not on file [place] Exposure to SARS-CoV -2 (event) Not sure [place] Sex Assigned At Male [facility] Medical Equipment Procedure Code Equipment Code Equipment Origin al Text Equipment Identifier Dates Pump Infuse Pain Synchromed Ii 40ml - [id number] Start: 12-03-2019 Cath Ascenda 114cm [id number] Start: 12-03-2019 Functional Status Date Assessment Result Facility 08-18-2021 Functional Status N/A [facility] Clinical Notes 04-02-2021 to 08-18-2021 Note Date & Type Note Facility 08-18-2021 Hospital Discharge instructions Patient Education 08/18/2021 11:50:12 Benign Prostatic Hyperplasia Benign Prostatic Hyperplasia Benign prostatic hyperplasia (BPH) is an enlarged prostate gland that is caused by the normal aging process and not by cancer. The prostate is a walnut-sized gland that is involved in the production of semen. It is located in front of the rectum and below the bladder. The bladder stores urine and the urethra is the tube that carries the urine out of the body. The prostate may get bigger as a man gets older. An enlarged prostate can press on the urethra. This can make it harder to pass urine. The build-up of urine in the bladder can cause infection. Back pressure and infection may progress to bladder damage and kidney (renal) failure. What are the causes? This condition is part of a normal aging process. However, not all men develop problems from this condition. If the prostate enlarges away from the urethra, urine flow will not be blocked. If it enlarges toward the urethra and compresses it, there will be problems passing urine. What increases the risk? This condition is more likely to develop in men over the age of 50 years. What are the signs or symptoms?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 Neurological: Negative for dizziness, weakness, light-headedness and headaches. Hematological: Does not bruise/bleed easily. Psychiatric/Behavioral: Negative for agitation, behavioral problems, confusion, self-injury, sleep disturbance and suicidal ideas. Objective : Current Vitals : Temp: 98.6 F (37 C), Pulse: 63, Resp: 16, BP: (!) 158/86, SpO2: 94 % Last 24 Hrs Vitals Patient Vitals for the past 24 hrs: BP Temp Temp src Pulse Resp SpO2 Weight 12/04/19 0725 (!) 158/86 98.6 F (37 C) Oral 63 16 94 % 12/04/19 0400 244 lb 4.8 oz (110.8 kg) 12/04/19 0353 (!) 141/77 98.2 F (36.8 C) Oral 69 18 93 % 12/04/19 0020 126/62 98.1 F (36.7 C) Oral 56 18 93 % 12/03/19 2207 (!) 152/86 71 17 12/03/19 1838 (!) 163/81 98.5 F (36.9 C) Oral 68 18 97 % 12/03/19 1656 126/60 59 12/03/19 1532 (!) 175/81 98.5 F (36.9 C) Oral 63 16 97 % 12/03/19 1058 138/74 98.1 F (36.7 C) Oral 57 17 95 % 12/03/19 1030 113/77 98.1 F (36.7 C) Temporal 56 8 94 % 12/03/19 1015 131/71 58 13 97 % 12/03/19 1000 130/81 59 11 95 % 12/03/19 0945 (!) 149/89 67 16 93 % 12/03/19 0930 134/86 60 11 96 % 12/03/19 0915 137/77 65 10 94 % 12/03/19 0900 122/77 70 9 95 % 12/03/19 0859 122/77 97.3 F (36.3 C) Temporal 70 10 95 % Intake / output 12/02 0701 - 12/03 0700 In: 1149 [P.O.:100; I.V.:1049] Out: - Physical Exam: Physical Exam Vitals signs and nursing note reviewed. Constitutional: General: He is not in acute distress. Appearance: He is not diaphoretic. HENT: Head: Normocephalic and atraumatic. Nose: Right Sinus: No maxillary sinus tenderness or frontal sinus tenderness. Left Sinus: No maxillary sinus tenderness or frontal sinus tenderness. Mouth/Throat: Pharynx: No oropharyngeal exudate. Eyes: General: No scleral icterus. Conjunctiva/sclera: Conjunctivae normal. Pupils: Pupils are equal, round, and reactive to light. Neck: Musculoskeletal: Full passive range of motion without pain and neck supple. Thyroid: No thyromegaly. Vascular: No JVD. Cardiovascular: Rate and Rhythm: Normal rate and regular rhythm. Pulses: Dorsalis pedis pulses are 2+ on the right side and 2+ on the left side. Heart sounds: Normal heart sounds. No murmur. Pulmonary: Effort: Pulmonary effort is normal. Breath sounds: Normal breath sounds. No wheezing or rales. Abdominal: Palpations: Abdomen is soft. There is no mass. Tenderness: There is no abdominal tenderness. Lymphadenopathy: Head: Right side of head: No submandibular adenopathy. Left side of head: No submandibular adenopathy. Cervical: No cervical adenopathy. Skin: General: Skin is warm. Neurological: Mental Status: He is alert and oriented to person, place, and time. Motor: No tremor. Psychiatric: Behavior: Behavior is cooperative. Laboratory findings: Recent Labs 12/04/19 0541 WBC 7.9 HGB 10.9* HCT 33.1* PLT 253 INR 1.1 Recent Labs 12/04/19 0541 NA 135 K 4.0 CL 100 CO2 28 GLUCOSE 120* BUN 8 CREATININE 0.68* CALCIUM 8.8 No results for input(s): PROT, LABALBU, LABA1C, G5RADCV, N7OFVMG, FT4, TSH, AST, ALT, LDH, GGT, ALKPHOS, BILITOT, BILIDIR, AMMONIA, AMYLASE, LIPASE, LACTATE, CHOL, HDL, LDLCHOLESTEROL, CHOLHDLRATIO, TRIG, VLDL, BNP, TROPONINI, CKTOTAL, CKMB, CKMBINDEX, RF, WICHO in the last 72 hours. Specific [place], UA Date Value Ref Range Status 11/19/2019 1.010 1.005 - 1.030 Final Protein, UA Date Value Ref Range Status 11/19/2019 NEGATIVE NEGATIVE Final Nitrite, Urine Date Value Ref Range Status 11/19/2019 NEGATIVE NEGATIVE Final Leukocyte Esterase, Urine Date Value Ref Range Status 11/19/2019 NEGATIVE NEGATIVE Final Imaging / Clinical Data :- Xr Lumbar Spine (2-3 Views) Result Date: 12/03/2019 Intraprocedural fluoroscopic spot images as above. See separate procedure report for more information. Clinical Course : stable Assessment and Plan : 1. Chronic back pain secondary DJD -dependent on opioids. Dilated dose has been decreased from 13 mg/h to 4 mg/h. No withdrawal symptoms observed. Percocet every 4 hours as needed. 2. Chronic opioid continuous use- 3. Intrathecal pump malfunction s/p replacement. Monitor for CSF leak. Received Ancef 1 gm every 8 hours prophylactically. Resume Plavix. Discharge home Plan and updates discussed with patient , answers explained to satisfaction. Plan discussed with Staff Di REED (Please note that portions of this note were completed with a voice recognition program. Efforts were made to edit the dictations but occasionally words are mis-transcribed.) Jennifer Nava MD 12/04/2019 * Boy Polk MD - 12/04/2019 6:55 AM EDT No C/O Mild sweating Pain 5-6 S/P intrathecal pump replacement No headache No fever No new weakness Moving both lower legs Dressing on both sites clean and dry No signs of CSF No signs of withdrawal Will D/C home today I will prescribe antibiotic and oral pain medications upon D/C * Sammie Appiah RN - 12/03/2019 1:52 PM EDT Pt sleeping in bed. No distress noted. Continuous pulse 95% on RA. Daughter at bedside. * Tonja Kessler RN - 12/03/2019 10:50 AM EDT transported per cart to room. Pt with personal belongings. No complaints voided. Report to Sammie reed * Tonja Kessler RN - 12/03/2019 10:[address] Mcdowell called. Informed that patient remains very sleepy but will follow commands. Informed pt will be staying the night. New orders received. * Sammie Chilel RN - 12/03/2019 8:37 AM EDT ABDOMINAL BINDER APPLIED TO PT documented in this encounter Assessments Diagnosis Pain management Other specified rehabilitation procedure Mild pulmonary hypertension (HCC) Other chronic pulmonary heart diseases COPD (chronic obstructive pulmonary disease) (HCC) Chronic airway obstruction, not elsewhere classified Post-op pain Other acute postoperative pain Additional Source Comments (unrecognized sect ion and content) No Status Records FoundNo Status Records FoundNo Status Records FoundNo Status Records FoundNo Status Records FoundNo Status Records FoundNo Status Records Found INFORMATION SOURCE (unrecogn ized section and content) DATE CREATED AUTHOR 03/28/2018 [facility] DATE CREATED AUTHOR AUTHOR'S ORGANIZ ATION 04/12/2021 [facility] DATE CREATED AUTHOR AUTHOR'S ORGANIZ ATION 12/10/2021 [facility] DATE CREATED AUTHOR AUTHOR'S ORGANIZ ATION 05/05/2022 [facility] DATE CREATED AUTHOR AUTHOR'S ORGANIZ ATION 09/30/2022 [facility] DATE CREATED AUTHOR AUTHOR'S ORGANIZ ATION 02/04/2023 [facility] DATE CREATED AUTHOR AUTHOR'S ORGANIZ ATION 02/14/2023 [facility] Reason for Visit (unrecogniz ed section and content) Status Reason Specialty Diagnoses / Procedures Referre d By Contact Referred To Contact Diagnoses Lumbar radiculopathy DX LUMBAR RADICULOPATHY Procedures OR NJX DX/THER SBST INTRLMNR CRV/THRC W/IMG GDN INSERT/ REPLACE INFUSN PUMP,PROGRAMMABLE INTRATHECAL PUMP REPLACEMENT AND CATHETER REVISION Boy Polk MD [address] [place] [address] [facility] Care Team (unrecognized sect ion and content) Personnel Name: JENNY CAST MD Address: [address] [place] [address] Personnel Name: JENNY CAST MD Address: Address: [address] [place] [address] FOR RECORDS PERTAINING TO PATIENTS WHO ARE OR HAVE BEEN ENROLLED IN A CHEMICAL DEPENDENCY/SUBSTANCEABUSE PROGRAM, SOME INFORMATION MAY BE OMITTED. This clinical summary was aggregated from multiple sources. Caution should be exercised in using it in the provision of clinical care. This summary normalizes information from multiple sources, and as a consequence, information in this document may materially change the coding, format and clinical context of patient data. In addition, data may be omitted in some cases. CLINICAL DECISIONS SHOULD BE BASED ON THE PRIMARY CLINICAL RECORDS. [facility] [employer] [facility]. provides no warranty or guarantee of the accuracy or completeness of information in this document.
--- NOTE | 2023-03-14 08:10 | ECG_ITS ---
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
--- NOTE | 2023-03-14 08:12 | ED_ITS ---
HPI - General Adult General Chief complaint: Weakness Stated complaint: GENERAL WEAKNESS Time Seen by Provider: 03/14/23 07:59 Source: patient Mode of arrival: ambulance History of Present Illness HPI narrative: 72-year-old male presents to the emergency department for generalized weakness. He would not speak for me but he did speak to the nurses. It's not clear how long he's been feeling this way. There is no history of trauma. He did not have a fever at triage. History is obtained from the paramedics primarily. Related Data Home Medications Medication Instructions Recorded Confirmed albuterol sulfate 90 mcg/actuation 1 inh inhalation Q4H PRN shortness 08/19/22 08/19/22 aerosol inhaler of breath or wheezing atorvastatin 40 mg tablet 40 mg PO DAILY 08/19/22 03/14/23 baclofen 10 mg tablet 10 mg PO TID 08/19/22 03/14/23 carbamazepine 400 mg 400 mg PO Q12H 08/19/22 03/14/23 tablet,extended release,12 hr clopidogrel 75 mg tablet 75 mg PO DAILY 08/19/22 03/14/23 diazepam 5 mg tablet 5 mg PO Q6H anxiety 08/19/22 08/19/22 duloxetine 60 mg capsule,delayed 60 mg PO DAILY 08/19/22 03/14/23 release fluticasone propionate 50 1 spray intranasal DAILY 08/19/22 03/14/23 mcg/actuation nasal spray,suspension levalbuterol tartrate 45 2 puff inhalation Q6H 08/19/22 08/19/22 mcg/actuation aerosol inhaler lisinopril 10 mg tablet 10 mg PO DAILY 08/19/22 03/14/23 loratadine 10 mg PO DAILY 08/19/22 08/19/22 magnesium hydroxide 400 mg/5 mL 30 ml PO DAILY PRN constipation 08/19/22 08/19/22 oral suspension montelukast 10 mg tablet 10 mg PO DAILY 08/19/22 03/14/23 omeprazole 40 mg capsule,delayed 40 mg PO DAILY 08/19/22 03/14/23 release oxycodone 5 mg capsule 5 mg PO Q8H PRN pain 08/19/22 03/14/23 pregabalin 100 mg capsule 100 mg PO Q12H 08/19/22 03/14/23 terazosin 2 mg capsule 2 mg PO DAILY 08/19/22 03/14/23 verapamil 240 mg tablet,extended 240 mg PO DAILY 08/19/22 03/14/23 release aspirin 81 mg tablet,delayed 81 mg PO DAILY 03/14/23 03/14/23 release Allergies Allergy/AdvReac Type Severity Reaction Status Date / Time Iodinated Contrast Media AdvReac Intermediate Verified 12/14/22 10:17 Review of Systems ROS Narrative not obtainable, altered mental status PFSH PFSH Medical History (Updated 03/14/23 @ 10:54 by ) Dehydration ?E86.0 - Dehydration (ICD-10) Acute renal failure ?N17.9 - Acute kidney failure, unspecified (ICD-10) BPH (benign prostatic hyperplasia) ?N40.0 - Benign prostatic hyperplasia without lower urinary tract symptoms (ICD-10) Lumbar degenerative disc disease ?M51.36 - Other intervertebral disc degeneration, lumbar region (ICD-10) Hyperlipidemia ?E78.5 - Hyperlipidemia, unspecified (ICD-10) Congestive heart failure ?I50.9 - Heart failure, unspecified (ICD-10) Neuropathy ?G62.9 - Polyneuropathy, unspecified (ICD-10) Acute kidney injury ?N17.9 - Acute kidney failure, unspecified (ICD-10) Surgical History (Updated 08/19/22 @ 14:33 by Mario Brooks RN) H/O lumbosacral spine surgery ?Z98.890 - Other specified postprocedural states (ICD-10) H/O cervical spine surgery ?Z98.890 - Other specified postprocedural states (ICD-10) Family History (Updated 08/19/22 @ 14:16 by Mario Brooks RN) Sister Family history of cancer Social History (Updated 08/19/22 @ 14:18 by Mario Brooks RN) Within the past year, how often did you have a drink containing alcohol: never Score interpretation: A score less than 4 is consistent with normal alcohol consumption. Smoking status: Former smoker Non-prescribed substance use: denies use Little interest or pleasure in doing things: several days Feeling down, depressed, or hopeless: several days Feel stressed/tense/nervous/anxious/difficulty sleeping: to some extent Gender Identity: male Exam Narrative Exam Narrative: Nurses note and vital signs reviewed and patient is not hypoxic. General: The patient appears in no apparent respiratory distress. Skin: Warm, dry, no pallor noted. There is no rash noted. Head: Normocephalic, atraumatic Eye: Normal conjunctiva, no drainage, EOMI. PERRL Ears, Nose, Mouth, and Throat: oral mucosa is moist. Nares patent. Cardiovascular: Regular Rate and Rhythm Respiratory: Patient is in no distress, no accessory muscle use, lungs are clear to auscultation, no wheezing, rales or rhonchi Back: non-tender, no CVA tenderness bilaterally to percussion. GI: soft and not apparently tender Musculoskeletal: The patient has no evidence of calf tenderness, no pitting edema, symmetrical pulses noted bilaterally Neurological: nonverbal for me but he followed simple commands such as opening his eyes and wiggling his toes Psychiatric: Cooperative Constitutional Vital Signs, click to edit/add: Last Vital Signs Temp 97.9 F 03/14/23 08:00 Pulse 68 03/14/23 10:45 Resp 15 03/14/23 10:45 BP 97/57 03/14/23 10:45 Pulse Ox 96 03/14/23 10:45 O2 Del Method Nasal Cannula 03/14/23 08:00 O2 Flow Rate 4 03/14/23 08:00 Course Vital Signs Vital signs: Vital Signs Blood Pressure 130/74 03/14/23 07:58 Temperature 97.9 F 03/14/23 08:00 Pulse Rate 68 03/14/23 10:45 Respiratory Rate 15 03/14/23 10:45 Blood Pressure 97/57 03/14/23 10:45 Pulse Oximetry 96 03/14/23 10:45 Oxygen Delivery Method Nasal Cannula 03/14/23 08:00 Oxygen Delivery Flow Rate 4 03/14/23 08:[address] [facility] Narrative Medical decision making narrative: the patient's workup including CAT scan of the head is negative. Consideration is given to overmedication. He is on oxycodone and the pain pump. No obvious evidence of stroke on his CAT scan. Findings are discussed with his family and he is being admitted. Differential Diagnosis Differential Diagnosis: stroke, urinary tract infection, pneumonia, dehydration Lab Data Lab results reviewed: Yes I reviewed the patient's lab results Labs: Lab Results 03/14/23 03/14/23 03/14/23 Range/Units 08:28 08:38 09:07 WBC 7.7 (4.0-11.0) 10^3/uL RBC 3.54 L (4.70-6.10) 10^6/uL Hgb 10.4 L (14.0-18.0) g/dL Hct 32.0 L (42.0-54.0) % MCV 90.4 (80.0-94.0) fL MCH 29.4 (25.9-34.0) pg MCHC 32.5 (29.9-35.2) g/dL RDW 12.8 (11.0-15.0) % Plt Count 284 (150-450) 10^3/uL MPV 9.1 L (9.5-13.5) fL Neut % (Auto) 58.3 (43.0-75.0) % Lymph % (Auto) 27.6 (20.5-60.0) % Cassia % (Auto) 8.6 (1.7-12.0) % Eos % (Auto) 4.8 (0.9-7.0) % Baso % (Auto) 0.6 (0.2-2.0) % Neut # (Auto) 4.5 (1.4-6.5) 10^3/uL Lymph # (Auto) 2.1 (1.2-3.8) 10^3/uL Cassia # (Auto) 0.7 (0.3-0.8) 10^3/uL Eos # (Auto) 0.4 (0.0-0.7) 10^3/uL Baso # (Auto) 0.1 (0.0-0.1) 10^3/uL Abs Immat Gran (auto) 0.01 (0.00-0.03) 10^3/uL Imm/Tot Granulo (auto) 0.1 (0.0-0.5) % Sodium 140 (136-145) mmol/L Potassium 4.7 (3.5-5.1) mmol/L Chloride 105 (98-107) mmol/L Carbon Dioxide 27.8 (21.0-32.0) mmol/L Anion Gap 11.9 BUN 25.0 H (7.0-18.0) mg/dL Creatinine 1.34 H (0.70-1.30) mg/dL Est GFR ( Amer) >60 (>=60) Est GFR (Non-Af Amer) 52 L (>=60) BUN/Creatinine Ratio 18.7 Glucose 110 H (74-106) mg/dL Calcium 8.8 (8.5-10.1) mg/dL Troponin I High Sens 7.4 (4.0-76.1) pg/mL Urine Color Lt. yellow (YELLOW) Urine Clarity Clear (CLEAR) Urine pH 6.0 (5.0-9.0) Ur Specific [place] 1.020 (1.005-1.025) Urine Protein Negative (NEG/TRACE) mg/dL Urine Glucose (UA) Negative (NEGATIVE) mg/dL Urine Ketones Negative (NEGATIVE) mg/dL Urine Occult Blood Negative (NEGATIVE) Urine Nitrite Negative (NEGATIVE) Urine Bilirubin Negative (NEGATIVE) Urine Urobilinogen 0.2 (0.2-1.0) EU/dL Ur Leukocyte Esterase Negative (NEGATIVE) Urine RBC None seen (0-2) #/HPF Urine WBC None seen (NONE SEEN) #/HPF Ur Squamous Epith Cells Few A (NONE/RARE) #/LPF Urine Crystals None seen (None Seen) #/HPF Urine Bacteria None seen (NONE SEEN) #/HPF Urine Casts Seen A (NONE SEEN) #/LPF Hyaline Casts Few Urine Mucus None seen (NONE SEEN) Influenza Type A Ag Negative Influenza Type B Ag Negative SARS-CoV-2 Ag (CV2AG) Negative (NEGATIVE) Imaging Data Chest x-ray: Radiologist's impression: ITS Impressions Chest X-Ray 03/14/23 09:00 IMPRESSION: No acute process seen in the chest. Electronically authenticated by: GORDY GAYTAN Date: 03/14/2023 09:[address] 03/14/23 09:00 IMPRESSION: No acute intracranial process. No substantial change since 08/19/2022. Electronically authenticated by: MARIO MATUTE Date: 03/14/2023 09:08 ECG Data Attestation: I personally reviewed and interpreted this ECG as follows: Discharge Plan Discharge Chief Complaint: Weakness Clinical Impression: Altered mental status Patient Disposition: Admitted as Observation Time of Disposition Decision: 10:53 Condition: Fair Prescriptions / Home Meds: No Action atorvastatin 40 mg tablet 40 mg PO DAILY baclofen 10 mg tablet 10 mg PO TID carbamazepine 400 mg tablet extended release 12 hr 400 mg PO Q12H clopidogrel 75 mg tablet 75 mg PO DAILY diazepam 5 mg tablet 5 mg PO Q6H duloxetine 60 mg capsule,delayed release(DR/EC) 60 mg PO DAILY levalbuterol tartrate 45 mcg/actuation HFA aerosol inhaler 2 puff INHALATION Q6H lisinopril 10 mg tablet 10 mg PO DAILY montelukast 10 mg tablet 10 mg PO DAILY pregabalin 100 mg capsule 100 mg PO Q12H terazosin 2 mg capsule 2 mg PO DAILY albuterol sulfate 90 mcg/actuation HFA aerosol inhaler 1 inh INHALATION Q4H PRN (Reason: shortness of breath or wheezing) fluticasone propionate 50 mcg/actuation spray,suspension 1 spray INTRANASAL DAILY loratadine 10 mg PO DAILY magnesium hydroxide 400 mg/5 mL suspension 30 ml PO DAILY PRN (Reason: constipation) omeprazole 40 mg capsule,delayed release(DR/EC) 40 mg PO DAILY oxycodone 5 mg capsule 5 mg PO Q8H PRN (Reason: pain) verapamil 240 mg tablet extended release 240 mg PO DAILY aspirin 81 mg tablet,delayed release (DR/EC) 81 mg PO DAILY Referrals: NU HERNANDEZ [Primary Care Provider] - 1 week
[2023-03-14 08:37] LABS: Basophils Absolute Auto 0.1 10^3/uL (0.0-0.1); Basophils Percent Auto 0.6 % (0.2-2.0); Eosinophils Absolute Auto 0.4 10^3/uL (0.0-0.7); Eosinophils Percent Auto 4.8 % (0.9-7.0); Hemoglobin 10.4 g/dL (14.0-18.0); Immature Granulocytes Abs Auto 0.01 10^3/uL (0.00-0.03); Immature Granulocytes Pct Auto 0.1 % (0.0-0.5); Lymphocytes Absolute Auto 2.1 10^3/uL (1.2-3.8); Lymphocytes Percent Auto 27.6 % (20.5-60.0); Mean Corpuscular HGB Conc 32.5 g/dL (29.9-35.2); Mean Corpuscular Hemoglobin 29.4 pg (25.9-34.0); Mean Corpuscular Volume 90.4 fL (80.0-94.0); Mean Platelet Volume 9.1 fL (9.5-13.5); Monocytes Absolute Auto 0.7 10^3/uL (0.3-0.8); Monocytes Percent Auto 8.6 % (1.7-12.0); Neutrophils Absolute Auto 4.5 10^3/uL (1.4-6.5); Neutrophils Percent Auto 58.3 % (43.0-75.0); Platelet Count 284 10^3/uL (150-450); Red Blood Count 3.54 10^6/uL (4.70-6.10); Red Cell Distribution Width 12.8 % (11.0-15.0); White Blood Count 7.7 10^3/uL (4.0-11.0)
[2023-03-14 08:54] LABS: Anion Gap 11.9; BUN Creatinine Ratio 18.7; Calcium 8.8 mg/dL (8.5-10.1); Carbon Dioxide 27.8 mmol/L (21.0-32.0); Chloride 105 mmol/L (98-107); Estimated GFR (African America >60 (>=60); Estimated GFR (Non-African Ame 52 (>=60); Glucose 110 mg/dL (74-106); Potassium 4.7 mmol/L (3.5-5.1); Sodium 140 mmol/L (136-145); Troponin I High Sensitivity 7.4 pg/mL (4.0-76.1)
--- NOTE | 2023-03-14 09:00 | CT_ITS ---
The [address] [address] Patient Name: KYLIE RUEDA MRN: [id number] date: 1950 Sex: M Assigned Patient Location: ED.MAIN Current Patient Location: ER Accession/Order Number: [id number] Exam Date: 03/14/2023 08:43 Report Date: 03/14/2023 09:08 At the request of: DAVON ORTIZ Procedure: CT head/brain wo con EXAM: CT head/brain wo con CLINICAL INDICATION: altered MS COMPARISON: CT head 08/19/2022 TECHNIQUE: Axial CT images of the brain were obtained without contrast. Coronal and sagittal reformats were obtained. Dose reduction techniques were achieved by using automated exposure control and/or adjustment of mA and/or kV according to patient size and/or use of iterative reconstruction technique. FINDINGS: No intracranial hemorrhage, extra-axial fluid collection, hydrocephalus, midline shift, or acute large vessel territory infarction. No other mass effect. Minimal periventricular hypoattenuation is likely on the basis of chronic microvascular angiopathic changes. Mild to moderate symmetric global volume loss without lobar predominance. Commensurate prominence of the ventricular system. Basal cisterns are patent. No calvarial fracture. Normal soft tissues. Mild scattered paranasal sinus mucosal thickening. Mastoid air cells are well aerated. CT/CT head/brain wo con IMPRESSION: No acute intracranial process. No substantial change since 08/19/2022. Electronically authenticated by: MARIO MATUTE Date: 03/14/2023 09:08
--- NOTE | 2023-03-14 09:00 | XR_ITS ---
The [address] [address] Patient Name: KYLIE RUEDA MRN: [id number] date: 1950 Sex: M Assigned Patient Location: ED.MAIN Current Patient Location: ER Accession/Order Number: [id number] Exam Date: 03/14/2023 08:43 Report Date: 03/14/2023 09:07 At the request of: DAVON ORTIZ Procedure: XR chest 1V EXAM: XR chest 1V HISTORY: altered MS COMPARISON: Chest study dated 11/01/2022 TECHNIQUE: AP view of the chest was obtained with portable technique at 0846 hours. FINDINGS: Heart and mediastinal contours are unremarkable in appearance. No acute infiltrate or consolidations are seen. Mild elevation right hemidiaphragm. No obvious pneumothorax. Mild convexity of the dorsal spine to the right. Stabilizing opacities partially visualized at the cervical level. XR/XR chest 1V IMPRESSION: No acute process seen in the chest. Electronically authenticated by: GORDY GAYTAN Date: 03/14/2023 09:07
[2023-03-14] MEDS: MORPHINE SULFATE 4 MG/ML VIAL IV (09:12)
[2023-03-14 09:26] LABS: Bilirubin Urine NEGATIVE (NEGATIVE); Blood Urine NEGATIVE (NEGATIVE); Clarity Urine CLEAR (CLEAR); Color Urine LT. YELLOW (YELLOW); Glucose Urine UA NEGATIVE (NEGATIVE); Ketones Urine NEGATIVE (NEGATIVE); Leukocyte Esterase Urine NEGATIVE (NEGATIVE); Nitrite Urine NEGATIVE (NEGATIVE); Protein Urine NEGATIVE (NEG/TRACE); Urobilinogen Urine 0.2 EU/dL (0.2-1.0)
--- NOTE | 2023-03-14 09:30 | ECG_ITS ---
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
[2023-03-14 09:34] LABS: Influenza Virus A Antigen Negative; Influenza Virus B Antigen Negative; Internal Control Within Normal Limits; SARS-CoV-2 Ag NEGATIVE (NEGATIVE)
[2023-03-14 09:45] LABS: Bacteria Urine NONE SEEN #/HPF (NONE SEEN); Cast Seen? SEEN #/LPF (NONE SEEN); Crystals Seen? None Seen #/HPF (None Seen); Hyaline Casts Urine FEW; Mucus Urine NONE SEEN (NONE SEEN); RBC Urine NONE SEEN #/HPF (0-2); Squamous Epithelial Cell Urine FEW #/LPF (NONE/RARE); WBC Urine NONE SEEN #/HPF (NONE SEEN)
--- NOTE | 2023-03-14 11:05 | CA_ITS ---
Patient Name: KYLIE RUEDA MR#: [id number] : 1950 Exam Date: 03/14/2023 Ordering Doctor: RITA MILLER . ECHOCARDIOGRAM REPORT PROCEDURE: CA ECHO DOPPLER COMPLETE INDICATIONS: CVA/AMS COMPARISON: None. DESCRIPTION: COMPLETE ECHOCARDIOGRAM Real-time transthoracic echocardiography with 2D, M-mode, spectral and color flow Doppler performed. QUALITY: Technical quality was good. LEFT VENTRICLE: Normal chamber size. Normal left ventricular wall thickness. Global left ventricular systolic function is normal. LV EF: Visual estimation of left ventricular ejection fraction is 65-70% DIASTOLIC: ATRIAL SEPTUM: LEFT ATRIUM: Moderate dilatation. RIGHT ATRIUM: Moderate dilatation. RIGHT VENTRICLE: Mild dilatation. Normal right ventricular systolic function. TRICUSPID VALVE: Normal mobility and thickness. No stenosis with mild regurgitation. No evidence of pulmonary hypertension. RVSP 27 mmHg MITRAL VALVE: Normal mobility and thickness. No evidence of mitral valve stenosis. There is no mitral annular calcification. Mild mitral regurgitation. AORTIC VALVE: Normal trileaflet appearance. Mildly calcified aortic valve. Normal leaflet mobility. No evidence of aortic valve stenosis. Trivial aortic regurgitation. AORTIC ROOT: Normal diameter and appearance. Mild dilatation of the aortic arch measuring 3.7cm. PULMONIC VALVE: Normal thickness and mobility. No stenosis. Trivial regurgitation. PERICARDIUM: No evidence of pericardial effusion. IVC: Collapses with inspirations. Normal size. PLEURA: CONCLUSION: 1. Normal left ventricular systolic function. Estimated LVEF is 65 to 70%. 2. Mildly dilated right ventricle with normal systolic function. 3. Moderate biatrial dilatation. 4. Mild mitral and tricuspid regurgitation. 5. Normal right-sided pressures. Adult Echocardiography Procedure Report Left Ventricle LVEDD (3.7 - 5.6 cm): 4.72 cm LVESD (2.2 - 4.0 cm): 3.20 cm LVIVS thickness (0.6 - 1.2 cm): 1.01 cm LVPW thickness (0.5 - 1.0 cm): 0.94 cm LVOT Max Gradient: 6.39 mm[Hg] LVOT Area (cm2): 1.26 m/s Peak Velocity (LVOT): 1.26 m/s Mean Velocity (LVOT): 0.80 m/s LVOT Diameter 2.24 cm Left Ventricular Ejection Fraction: 65-70 % Left Atrium LA Volume Index (2D A2C): 52.21 ml/m2 Left Atrium Systolic Dimension: 4.17 cm Mitral Valve MV E to A Ratio: 1.08 Mitral Valve A-Wave Peak Velocity: 0.57 m/s Mitral Valve E-Wave Peak Velocity: 0.61 m/s Right Ventricle RV Internal Diastolic Dimension: 4.23 cm Aorta AO Root Diam: 3.36 cm Ascending Ao Diam: 3.24 cm Aortic Valve AoV Area (Peak Ryan): 3.41 cm2, 3.41 cm2 AoV Area (VTI): 3.10 cm2, 3.10 cm2 Peak Velocity(Antegrade Flow): 1.46 m/s Peak Gradient(Antegrade Flow): 8.54 mm[Hg] Mean Velocity(Antegrade Flow): 0.97 m/s Mean Gradient(Antegrade Flow): 4.36 mm[Hg] Velocity Time Integral: 33.36 cm Tricuspid Valve Peak Velocity (Regurgitant Flow): 1.93 m/s, 2.44 m/s, 2.14 m/s Pulmonic Valve Mean Gradient: 5.39 mm[Hg] Mean Velocity: 1.10 m/s Peak Velocity: 1.56 m/s, 1.83 m/s Peak Gradient: 9.69 mm[Hg], 13.33 mm[Hg] Right Atrium Right Atrium Systolic Pressure: 150.03 ml, 150.03 ml Dictated by: James Arthur M.D. on 03/15/2023 at 18:30 Approved by: James Arthur M.D. on 03/15/2023 at 18:34
--- OUTSIDE RECORDS SUMMARY | 2023-03-14 11:05 | XMS_ITS | CCD ---
Author Name Unknown Address [address] [place] [address] Organization [facility] Care Team Providers Care Biomedical Equipment Support Specialist Name Role Phone CARLOS EVANS Admitting Unavailable [...] Referring Unavailable CAST, JENNY Primary Care Unavailable [place] Procedure Practitioner Unavailab SHELLI AmosIL Surgeon Unavailable MO Procedure Practitioner Unavailab JOANNA Rose Surgeon Unavailable HEMA VILCHIS Admitting Unavailable HEMA VILCHIS Attending Unavailable CAST, JENNY Referring Unavailable CAST, JENNY Primary Care Unavailable Cast, Jenny A Primary Care Provider AZUCENA EVANS Referring Unavailable CAST, JENNY A Primary Care Unavailable AZUCENA VEANS Referring Unavailable CAST, JENNY A Primary Care Unavailable JENNY CAST Primary Care Unavailable AZUCENA EAVNS Referring Unavailable JENNY CAST Primary Care Physician [phone] Cintia Alves Attending Unavailable Alves, Cintia L Attending Unavailable Alves, Cintia L Attending Unavailable Alves, Cintia L Attending Unavailable Alves, Cintia L Attending Unavailable Alves, Cintia L Referring Unavailable Alves, Cintia L Admitting Unavailable Alves, Cintia L Attending Unavailable Alves, Cintia L Admitting Unavailable Alves, Cintia L Attending Unavailable Alves, Cintia L Referring Unavailable SAMSA, EVRNELL P Admitting Unavailable SAMSA, VERNELL P Attending [...] VERNELL Admitting Unavailable SHAWN Banuelos, DR CINTIA Hernandez Admitting Unavaila beau CAST, DR JENNY Young Primary Care Unavailable SHAWN Banuelos, DR CINTIA Hernandez Attending Unavailmaria d Banuelos, DR CINTIA Hernandez Consulting Unavaila JESSA Sena Consulting Unavailable JENNY CAST Referring Unavailable JENNY CAST Primary Care Unavailable Allergies Allergy Classification Reported Allergen(s) Allergy Type Date of Onset Reaction(s) Facility (3 sources) Barium-Containin g Compounds Propensity to adverse reactions to drug 0 [place], [place] (5 sources) Contrast media; Translations: [contrast media (iodine-based)] Drug allergy Anaphylaxis (disorder) [facility] (1 source) Iodine (And Iodine Containting Drugs) Drug allergy (disorder) [facility] (1 source) Pneumovax 23 Drug allergy (disorder) 5 [facility] (1 source) Sulfonamides (Antibiotic); Translations: [SULFA [...] 210 tab(s), Refill(s) 0, [facility], 175.5, cm, 05/12/21 9:10:00 EDT, Height/Length [...] Ordered Start: 12-03-2019 take 1 capsule by [facility] once daily 30 mg, Oral, DAILY, First [...] 04/28/21 Status: Ordered take 1 capsule by [facility] once daily as needed omeprazole (PRILOSEC) 40 [...] release tablet 10 mg polyethylene glycol 3350 26785 mg powder for oral solution (1 source) [...] bedtime), # 30 cap(s), Refills(s) 6, Pharmacy: [address], 181, cm, 04/28/21 12:55:00 EDT, Height/Length [...] 01-26-2018 Chronic Other aftercare (1 source) 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; Translations: [OTH RESIDENTIAL CURRENT DRUG THERAPY] Onset: 04-20-2022 Episodic Other aftercare (1 source) retirement (current) use of antithrombotics/antip latelets; Translations: [RESIDENTIAL ANTITHROMBOT/ANTIPLAT LETS] Onset: 04-20-2022 Episodic Other aftercare (1 source) 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; Translations: [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 CURRENT USE OF ASPIRIN] Onset: 04-20-2022 Episodic [...] Da te Episodic/Chronic Other aftercare (2 sources) retirement (current) use of anticoagulants; Translations: [RESIDENTIAL (CURRENT) USE OF ANTICOAGULANTS] Onset: 11-15-2017 Episodic [...] 01-31-2023 Ferritin [Mass/Vol] 74 ng/mL Normal 24-336 [facility] Comment on above: Performed By: #### F EPR, 31894-6, 2857-1, 2276-4, 2284-8, 2131-10 #### [facility] ([id number]) [address] [place] [address] Folate [Mass/Vol]on 02-01-20 23 FOLIC ACID 6.9 ng/mL Normal >5.8 [facility] Comment on above: Result Comment: NEW REFERENCE RANGE Performed By: #### F EPR, 13484-2, 2857-1, 2276-4, 2284-8, 2131-10 #### [facility] ([id number]) [address], [address] [place] [address] IRON PROFILEon 01-31-2023 Iron [Mass/Vol] 64 ug/dL Normal 50-212 [facility] Comment on above: Performed By: #### F EPR, 28903-1, 2857-1, 2276-4, 2284-8, 2131-10 #### [facility] ([id number]) [address] [place] [address] IRON BINDING 290 ug/dL Normal 250-425 [facility] Comment on above: Performed By: #### F EPR, 43211-6, 2857-1, 2276-4, 2284-8, 9 #### [facility] ([id number]) [address] [place] [address] IRON SATURATION 22 % SATURATION Normal 20-[address] [facility] Comment on above: Performed By: #### F EPR, 10634-6, 2857-1, 2276-4, 2284-8, 2131-10 #### [facility] ([id number]) [address] [place] [address] Lipid 1996 panelon 3 Cholesterol [Mass/Vol] 144 mg/dL Low 150-200 [facility] Comment on above: Performed By: #### F EPR, 19955-6, 2857-1, 2276-4, 2284-8, 9 #### [facility] ([id number]) [address] [place] [address] Cholesterol in HDL [Mass/Vol] 58 mg/dL Normal >39 [facility] Comment on above: Result Comment: HDL <40 mg/dL - High Risk HDL > or = 40mg/dL- Desirable HDL >60 mg/dL - Negative Risk Performed By: #### F EPR, 54889-4, 2857-1, 2276-4, 2284-8, 9 #### [facility] ([id number]) [address] [place] [address] Cholesterol in LDL [Mass/Vol] 57 mg/dL Normal <130 [facility] Comment on above: Result Comment: LDL <100 mg/dL - Desirable LDL >160 mg/dL - High Risk Performed By: #### F EPR, 44279-5, 2857-1, 2276-4, 2284-8, 9 #### [facility] ([id number]) [address] [place] [address] Cholesterol in VLDL [Mass/Vol] 29 mg/dL Normal 0-30 [facility] Comment on above: Performed By: #### F EPR, 83201-5, 2857-1, 2276-4, 2284-8, 2131-9 #### [facility] ([id number]) [address] [place] [address] CHOLESTEROL:HDL 2.5 Normal 1.0-5.0 [facility] Comment on above: Performed By: #### F EPR, 90795-4, 2857-1, 2276-4, 2284-8, 9 #### [facility] ([id number]) [address] [place] [address] Triglyceride [Mass/Vol] 147 mg/dL Normal 27-150 [facility] Comment on above: Performed By: #### F EPR, 55870-4, 2857-1, 2276-4, 2284-8, 9 #### [facility] ([id number]) [address] [place] [address] Prostate specific Ag [Mass/V ol]on 01-31-2023 PSA SCREEN 0.17 ng/mL Normal 0.00-4.00 [facility] Comment on above: Result Comment: The method used for this test is Camron Cecile DXI chemiluminescent immunoassay. Values obtained by different assay methods cannot be used interchangeably. Performed By: #### F EPR, 30098-7, 2857-1, 2276-4, 2284-8, 2131-9 #### [facility] ([id number]) [address] [address] [place] [address] VITAMIN B12on 01-31-2023 Cobalamin (Vitamin B12) [Mass/Vol] 273 pg/mL Normal 180-914 [facility] Comment on above: Performed By: #### F EPR, 12829-7, 2857-1, 2276-4, 2284-8, 2132-9 #### [facility] ([id number]) [address] [place] [address] DRUG SCREEN, UR-RFLEX CONFIR 09-29-2022 ALCOHOL, UR. Negative Normal (< 10 - Cutof) [facility] Comment on above: Order Comment: FACIL ITY: [facility] [id number] Performed By: #### D S-M+ #### [facility] [address] [facility], [address] AMPHETAMINES, UR. Negative Normal (< 500 - Cutof) [facility] Comment on above: Order Comment: FACIL ITY: [facility] [id number] Performed By: #### D S-M+ #### [facility] [address] [facility], [address] BARBITURATES, UR. Negative Normal (< 300 - Cutof) [facility] Comment on above: Order Comment: FACIL ITY: [facility] [id number] Performed By: #### D S-M+ #### [facility] [address] [facility], [address] BENZODIAZEPINES, UR. Positive High (< 100 - Cutof) [facility] Comment on above: Order Comment: FACIL ITY: [facility] [id number] Result Comment: DAMIR ODIAZEPINES URINE SCREEN = POSITIVE Specimen sent for confirmation testing for benzodiazepines - [facility] test # [id number] Performed By: #### D S-M+ #### [facility] [address] [facility], [address] COCAINE METAB. UR. Negative Normal (< 150 - Cutof) [facility] Comment on above: Order Comment: FACIL ITY: [facility] [id number] Performed By: #### D S-M+ #### [facility] [address] [facility], [address] CREAT, URINE 120.53 MG/DL Normal (20.00 - 370.0) [facility] Comment on above: Order Comment: FACIL ITY: [facility] [id number] Performed By: #### D S-M+ #### [facility] [address] [facility], [address] FENTANYL, UR SCREEN Negative Normal (< 1.0 - Cutof) [facility] Comment on above: Order Comment: FACIL ITY: [facility] [id number] Performed By: #### Emmanuel S-M+ #### [facility] [address] [facility], [address] HEROIN METAB. UR. Negative Normal (< 10 - Cutof) [facility] Comment on above: Order Comment: FACIL ITY: [facility] [id number] Performed By: #### Emmanuel S-M+ #### [facility] [address] [facility], [address] METHADONE METAB. UR. Negative Normal (< 100 - Cutof) [facility] Comment on above: Order Comment: FACIL ITY: [facility] [id number] Performed By: #### D S-M+ #### [facility] [address] [facility], [address] OPIATES, UR. Positive High (< 100 - Cutof) [facility] Comment on above: Order Comment: FACIL ITY: [facility] [id number] Result Comment: OPIA UDAY URINE SCREEN = POSITIVE Specimen sent for confirmation testing for opiates to include oxycodone - [facility] test # [id number] Performed By: #### D S-M+ #### [facility] [address] [place], [address] OXYCODONE, UR. Positive High (< 100 - Cutof) [facility] Comment on above: Order Comment: FACIL ITY: [facility] [id number] Result Comment: OXYC ODONE URINE SCREEN = POSITIVE Specimen sent for confirmation testing for opiates to include oxycodone - [facility] test # [id number] Performed By: #### D S-M+ #### [facility] [address] [facility], [address] pH (U) 5.0 [pH] Normal (5.0 - 9.0) [facility] Comment on above: Order Comment: FACIL ITY: [facility] [id number] Performed By: #### D S-M+ #### [facility] [address] [facility], [address] PHENCYCLIDINE, UR. Negative Normal (< 25 - Cutof) [facility] Comment on above: Order Comment: FACIL ITY: [facility] [id number] Performed By: #### D S-M+ #### [facility] [address] [facility], [address] THC METABOLITE, UR. Negative Normal (< 20 - Cutof) [facility] Comment on above: Order Comment: FACIL ITY: [facility] [id number] Performed By: #### D S-M+ #### [facility] [address] [place], [address] TRAMADOL, UR SCREEN Negative Normal (< 200 - Cutof) [facility] Comment on above: Order Comment: FACIL ITY: [facility] [id number] Result Comment: This drug testing is for medical treatment only. Analysis was performed as non-forensic testing and the results should be used only by healthcare providers to render diagnosis or treatment, or to monitor the progress of medical conditions. Performed By: #### D S-M+ #### [facility] [address] [place], [address] BASIC MET PANEL W/GFRon 07-3 Calcium [Mass/Vol] 8.8 mg/dL Normal (8.6 - 10.6) [facility] Comment on above: Performed By: #### C BC/D, CHEM-B #### [facility] [address] [place], [address] Chloride [Moles/Vol] 98 mmol/L Normal (98 - 107) [facility] Comment on above: Performed By: #### C BC/D, CHEM-B #### [facility] [address] [place], [address] CO2 [Moles/Vol] 34 mmol/L High (22 - 30) [facility] Comment on above: Performed By: #### C BC/D, CHEM-B #### [facility] [address] [place], [address] Creatinine [Mass/Vol] 0.75 mg/dL Normal (0.66 - 1.25) [facility] Comment on above: Performed By: #### C BC/D, CHEM-B #### [facility] [address] [place], [address] GFR- AMER 123.2 ML/M1.7 Normal (60.0 - 161.8) [facility] Comment on above: Performed By: #### C BC/D, CHEM-B #### [facility] [address] [place], [address] GFR-NON AFRIC-AMER 101.8 ML/M1.7 Normal (60.0 - 133.8) [facility] Comment on above: Performed By: #### C BC/D, CHEM-B #### [facility] [address] [place], [address] Glucose [Mass/Vol] 132 mg/dL High (74 - 106) [facility] Comment on above: Performed By: #### C BC/D, CHEM-B #### [facility] [address] [place], [address] Potassium [Moles/Vol] 4.1 mmol/L Normal (3.5 - 5.1) [facility] Comment on above: Performed By: #### C BC/D, CHEM-B #### [facility] [address] [place], [address] Sodium [Moles/Vol] 140 mmol/L Normal (137 - 145) [facility] Comment on above: Performed By: #### C BC/D, CHEM-B #### [facility] [address] [place], [address] Urea nitrogen [Mass/Vol] 13 mg/dL Normal (9 - 20) [facility] Comment on above: Performed By: #### Aries BC/D, CHEM-B #### [facility] [address] [place], [address] CBC WITH DIFFon 09-13-2022 ABS BASOPHIL 0.07 x10^3ul Normal (0.00 - 0.16) [facility] Comment on above: Order Comment: FACIL ITY: DR CAST - OFFICE [id number] Performed By: #### C BC/Emmanuel, CHEM-B #### [facility] [address] [place], [address] ABS EOSINOPHIL 0.23 x10^3ul Normal (0.00 - 0.40) [facility] Comment on above: Order Comment: FACIL ITY: DR CAST - OFFICE [id number] Performed By: #### C BC/D, CHEM-B #### [facility] [address] [place], [address] ABS IMMATURE GRANS 0.02 x10^3ul Normal (0.00 - 0.11) [facility] Comment on above: Order Comment: FACIL ITY: DR CAST - OFFICE [id number] Performed By: #### C BC/D, CHEM-B #### [facility] [address] [place], [address] ABS LYMPHOCYTE 1.95 x10^3ul Normal (0.96 - 5.40) [facility] Comment on above: Order Comment: FACIL ITY: DR CAST - OFFICE [id number] Performed By: #### C BC/D, CHEM-B #### [facility] [address] [place], [address] ABS MONOCYTE 0.63 x10^3ul Normal (0.10 - 1.00) [facility] Comment on above: Order Comment: FACIL ITY: DR CAST - OFFICE [id number] Performed By: #### C BC/D, CHEM-B #### [facility] [address] [place], [address] ABS NEUTROPHIL 2.41 x10^3ul Normal (1.50 - 7.00) [facility] Comment on above: Order Comment: FACIL ITY: DR CAST - OFFICE [id number] Performed By: #### C BC/D, CHEM-B #### [facility] [address] [place], [address] Basophils/100 WBC (Bld) 1.3 % Normal () [facility] Comment on above: Order Comment: FACIL ITY: DR CAST - OFFICE [id number] Performed By: #### C BC/D, CHEM-B #### [facility] [address] [place], [address] Eosinophils/100 WBC (Bld) 4.3 % Normal () [facility] Comment on above: Order Comment: FACIL ITY: DR CAST - OFFICE [id number] Performed By: #### C BC/D, CHEM-B #### [place] [facility] [address] [place], [address] Hematocrit (Bld) [Volume fraction] 33.1 % Low (42.0 - 52.0) [facility] Comment on above: Order Comment: FACIL ITY: DR CAST - OFFICE [id number] Performed By: #### C BC/D, CHEM-B #### [facility] [address] [place], [address] Hemoglobin (Bld) [Mass/Vol] 10.6 g/dL Low (14.0 - 18.0) [facility] Comment on above: Order Comment: FACIL ITY: DR CAST - OFFICE [id number] Performed By: #### C BC/D, CHEM-B #### [facility] [address] [place], [address] IMMATURE GRANS (IG) 0.4 % Normal () [facility] Comment on above: Order Comment: FACIL ITY: DR CAST - OFFICE [id number] Performed By: #### C BC/D, CHEM-B #### [facility] [address] [place], [address] LYMPS 36.7 % Normal () [facility] Comment on above: Order Comment: FACIL ITY: DR CAST - OFFICE [id number] Performed By: #### C BC/D, CHEM-B #### [place] [facility] [address] [place], [address] MCH (RBC) [Entitic mass] 29.8 pg Normal (27.0 - 33.0) [facility] Comment on above: Order Comment: FACIL ITY: DR CAST - OFFICE [id number] Performed By: #### C BC/D, CHEM-B #### [facility] [facility] [address] [place], [address] MCHC (RBC) [Mass/Vol] 32.0 g/dL Normal (30.0 - 37.0) [facility] Comment on above: Order Comment: FACIL ITY: DR CAST - OFFICE [id number] Performed By: #### C BC/D, CHEM-B #### [place] [facility] [address] [place], [address] MCV (RBC) [Entitic vol] 93.0 fL Normal (80.0 - 94.0) [facility] Comment on above: Order Comment: FACIL ITY: DR CAST - OFFICE [id number] Performed By: #### C BC/D, CHEM-B #### [place] [facility] [address] [place], [address] MONOS 11.9 % Normal () [facility] Comment on above: Order Comment: FACIL ITY: DR CAST - OFFICE [id number] Performed By: #### C BC/D, CHEM-B #### [place] [facility] [address] [place], [address] PLT 292 x10^3ul Normal (130 - 400) [facility] Comment on above: Order Comment: FACIL ITY: DR CAST - OFFICE [id number] Performed By: #### C BC/D, CHEM-B #### [place] [facility] [address] [place], [address] RBC 3.56 x10^6ul Low (4.70 - 6.10) [facility] Comment on above: Order Comment: FACIL ITY: DR CAST - OFFICE [id number] Performed By: #### C BC/D, CHEM-B #### [place] [facility] [address] [place], [address] RDW-SD 45.2 fl Normal (37.0 - 49.0) [facility] Comment on above: Order Comment: FACIL ITY: DR CAST - OFFICE [id number] Performed By: #### C BC/D, CHEM-B #### [place] [facility] [address] [place], [address] SEGS 45.4 % Normal () [facility] Comment on above: Order Comment: FACIL ITY: DR CAST - OFFICE [id number] Performed By: #### C BC/D, CHEM-B #### [place] [facility] [address] [place], [address] WBC 5.31 x10^3ul Normal (3.80 - 10.60) [facility] Comment on above: Order Comment: FACIL ITY: DR CAST - OFFICE [id number] Performed By: #### C BC/D, CHEM-B #### [facility] [address] [facility], [address] DRUG SCREEN, UR-RFLEX CONFIR 06-29-2022 ALCOHOL, UR. Negative Normal (< 10 - Cutof) [facility] Comment on above: Order Comment: FACIL ITY: [facility] [id number] Performed By: #### D S-M+ #### [facility] [address] [facility], [address] AMPHETAMINES, UR. Negative Normal (< 500 - Cutof) [facility] Comment on above: Order Comment: FACIL ITY: [facility] [id number] Performed By: #### D S-M+ #### [facility] [address] [facility], [address] BARBITURATES, UR. Negative Normal (< 300 - Cutof) [facility] Comment on above: Order Comment: FACIL ITY: [facility] [id number] Performed By: #### D S-M+ #### [facility] [address] [facility], [address] BENZODIAZEPINES, UR. Positive High (< 100 - Cutof) [facility] Comment on above: Order Comment: FACIL ITY: [facility] [id number] Result Comment: DAMIR ODIAZEPINES URINE SCREEN = POSITIVE Specimen sent for confirmation testing for benzodiazepines - [facility] test # [id number] Performed By: #### D S-M+ #### [facility] [address] [facility], [address] COCAINE METAB. UR. Negative Normal (< 150 - Cutof) [facility] Comment on above: Order Comment: FACIL ITY: [facility] [id number] Performed By: #### D S-M+ #### [place] [facility] [address] [place], [address] CREAT, URINE 75.27 MG/DL Normal (20.00 - 370.0) [facility] Comment on above: Order Comment: FACIL ITY: [facility] [id number] Performed By: #### D S-M+ #### [facility] [facility] [address] [place], [address] FENTANYL, UR SCREEN Negative Normal (< 1.0 - Cutof) [facility] Comment on above: Order Comment: FACIL ITY: [facility] [id number] Performed By: #### D S-M+ #### [facility] [address] [place], [address] HEROIN METAB. UR. Negative Normal (< 10 - Cutof) [facility] Comment on above: Order Comment: FACIL ITY: [facility] [id number] Performed By: #### D S-M+ #### [facility] [address] [place], [address] METHADONE METAB. UR. Negative Normal (< 100 - Cutof) [facility] Comment on above: Order Comment: FACIL ITY: [facility] [id number] Performed By: #### D S-M+ #### [facility] [address] [place], [address] OPIATES, UR. Positive High (< 100 - Cutof) [facility] Comment on above: Order Comment: FACIL ITY: [facility] [id number] Result Comment: OPIA UDAY URINE SCREEN = POSITIVE Specimen sent for confirmation testing for opiates to include oxycodone - [facility] test # [id number] Performed By: #### D S-M+ #### [facility] [facility] [address] [place], [address] OXYCODONE, UR. Positive High (< 100 - Cutof) [facility] Comment on above: Order Comment: FACIL ITY: [facility] [id number] Result Comment: OXYC ODONE URINE SCREEN = POSITIVE Specimen sent for confirmation testing for opiates to include oxycodone - [facility] test # [id number] Performed By: #### D S-M+ #### [facility] [address] [facility], [address] pH (U) 6.0 [pH] Normal (5.0 - 9.0) [facility] Comment on above: Order Comment: FACIL ITY: [facility] [id number] Performed By: #### D S-M+ #### [facility] [address] [facility], [address] PHENCYCLIDINE, UR. Negative Normal (< 25 - Cutof) [facility] Comment on above: Order Comment: FACIL ITY: [facility] [id number] Performed By: #### D S-M+ #### [facility] [address] [facility], [address] THC METABOLITE, UR. Negative Normal (< 20 - Cutof) [facility] Comment on above: Order Comment: FACIL ITY: [facility] [id number] Performed By: #### D S-M+ #### [facility] [address] [place], [address] TRAMADOL, UR SCREEN Negative Normal (< 200 - Cutof) [facility] Comment on above: Order Comment: FACIL ITY: [facility] [id number] Result Comment: This drug testing is for medical treatment only. Analysis was performed as non-forensic testing and the results should be used only by healthcare providers to render diagnosis or treatment, or to monitor the progress of medical conditions. Performed By: #### D S-M+ #### [facility] [facility] [address] [place], [address] XR FOOT LT MIN 3 VIEWSon XR FOOT LT MIN 3 VIEWS EXAM: XR FOOT LT MIN 3 VIEWS Please see tibia-fibula x-rays of same day Electronically authenticated by: JESSA ADAM Date: 2022-04-19 17:08 Normal [facility] XR HUMERUS LT MIN 2Von 04-19 XR [...] by: JESSA ADAM Date: 2022-04-19 16:58 Normal [facility] XR TIB_FIB LT 2Von 3 XR [...] JESSA ADAM Date: 2022-04-19 17:07 Normal [facility] CBC AUTO DIFFon 01-24-2022 BASO # 0.1 103/ul Normal 0.0-0.1 [facility] Comment on above: Performed By: #### C BC #### [facility] [address] [place] [address] Dr. Terence Hilario Basophils/100 WBC (Bld) 0.5 % Normal 0.2-2.0 [facility] Comment on above: Performed By: #### C BC #### [facility] [address] [place] [address] Dr. Terence Hilario EO # 0.2 103/ul Normal 0.0-0.7 [facility] Comment on above: Performed By: #### C BC #### [facility] [address] [place] [address] Dr. Terence Hilario Eosinophils/100 WBC (Bld) 1.8 % Normal 0.9-7.0 [facility] Comment on above: Performed By: #### C BC #### [facility] [address] [place] [address] Dr. Terence Hilario Erythrocyte distribution width (RBC) [Ratio] 13.4 % Normal 11.0-15.0 [facility] Comment on above: Performed By: #### C BC #### [facility] [address] [place] [address] Dr. Terence Hilario Hematocrit (Bld) [Volume fraction] 34.4 % Critically low 42.0-54.0 [facility] Comment on above: Performed By: #### C BC #### [facility] [address] [place] [address] Dr. Terence Hilario Hemoglobin (Bld) [Mass/Vol] 11.4 g/dL Critically low 14.0-18.0 [facility] Comment on above: Performed By: #### C BC #### [facility] [address] [place] [address] Dr. Terence Hilario IG # 0.04 10e3/ul Critically high 0.00-0.03 [facility] Comment on above: Performed By: #### C BC #### [facility] [address] [place] [address] Dr. Terence Hilario IG % 0.3 % Normal 0.0-0.5 [facility] Comment on above: Performed By: #### C BC #### [facility] [address] [place] [address] Dr. Terence Hilario LYMPH # 1.6 103/ul Normal 1.2-3.8 [facility] Comment on above: Performed By: #### C BC #### [facility] [address] [place] [address] Dr. Terence Hilario Lymphocytes/100 WBC (Bld) 12.6 % Critically low 20.5-60.0 [facility] Comment on above: Performed By: #### C BC #### [facility] [address] [place] [address] Dr. Terence Hilario MANUAL DIFF REQ NO Normal [facility] Comment on above: Performed By: #### C BC #### [facility] [address] [place] [address] Dr. Terence Hilario MCH (RBC) [Entitic mass] 30.5 pg Normal 25.9-34.0 [facility] Comment on above: Performed By: #### C BC #### [facility] [address] [place] [address] Dr. Terence Hilario MCHC (RBC) [Mass/Vol] 33.1 g/dL Normal 29.9-35.2 [facility] Comment on above: Performed By: #### C BC #### [facility] [address] [place] [address] Dr. Terence Hilario MCV (RBC) [Entitic vol] 92.0 fL Normal 80.0-94.0 [facility] Comment on above: Performed By: #### C BC #### [facility] [address] [place] [address] Dr. Terence Hilario MONO # 1.0 103/ul Critically high 0.3-0.8 [facility] Comment on above: Performed By: #### C BC #### [facility] [address] [place] [address] Dr. Terence Hilario Monocytes/100 WBC (Bld) 7.7 % Normal 1.7-12.0 [facility] Comment on above: Performed By: #### C BC #### [facility] [address] [place] [address] Dr. Terence Hilario NEUT # 9.5 103/ul Critically high 1.4-6.5 [facility] Comment on above: Performed By: #### C BC #### [facility] [address] [place] [address] Dr. Terence Hilario Neutrophils/100 WBC (Bld) 77.1 % Critically high 43.0-75.0 [facility] Comment on above: Performed By: #### C BC #### [facility] [address] [address] [address] Terence Hilario Platelet mean volume (Bld) [Entitic vol] 8.6 fL Critically low 9.5-13.5 [facility] Comment on above: Performed By: #### C BC #### [facility] [id number] Terence Hilario PLT 241 103/ul Normal 150-450 [facility] Comment on above: Performed By: #### C BC #### [facility] [address] [address] [address] Terence Hilario RBC 3.74 106/ul Critically low 4.70-6.10 [facility] Comment on above: Performed By: #### C BC #### [facility] [address] [address] [address] Terence Hilario WBC 12.3 103/ul Critically high 4.0-11.0 [facility] Comment on above: Performed By: #### C BC #### [facility] [address] [place], [place] [address] HEAD WO CONon [...] by: LALITO SHOOK Date: 2022-01-24 10:20 Normal [facility] PROF 14(COMP METB)on 022 Albumin [Mass/Vol] 3.4 g/dL Normal 3.4-5.0 [facility] Comment on above: Performed By: #### H GB #### [facility] [address] [place] [address] Dr. Terence Hilario Albumin/Globulin [Mass ratio] 0.9 {ratio} Normal [facility] Comment on above: Performed By: #### H GB #### [facility] [address] [place] [address] Dr. Terence Hilario ALP [Catalytic activity/Vol] 73 U/L Normal 46-116 [facility] Comment on above: Performed By: #### H GB #### [facility] [address] [address] [address] Terence Hilario ALT [Catalytic activity/Vol] 24 U/L Normal 16-63 [facility] Comment on above: Performed By: #### H GB #### [facility] [address] [place] [address] Dr. Terence Hilario Anion gap [Moles/Vol] 12.4 mmol/L Normal [facility] Comment on above: Performed By: #### H GB #### [facility] [address] [address] [address] Terence Hilario AST [Catalytic activity/Vol] 21 U/L Normal 15-37 [facility] Comment on above: Performed By: #### H GB #### [facility] [address] [address] [address] Terence Hilario Bilirubin [Mass/Vol] 0.3 mg/dL Normal 0.2-1.0 [facility] Comment on above: Performed By: #### H GB #### [facility] [address] [address] [address] Terence Hilario Calcium [Mass/Vol] 8.7 mg/dL Normal 8.5-10.1 [facility] Comment on above: Performed By: #### H GB #### [facility] [address] [address] [address] Terence Hilario Chloride [Moles/Vol] 102 mmol/L Normal 98-107 [facility] Comment on above: Performed By: #### H GB #### [facility] [address] [address] [address] Terence Hilario CO2 [Moles/Vol] 31.5 mmol/L Normal 21.0-32.0 [facility] Comment on above: Performed By: #### H GB #### [facility] [address] [place] [address] Dr. Terence Hilario Creatinine [Mass/Vol] 1.09 mg/dL Normal 0.70-1.30 [facility] Comment on above: Performed By: #### H GB #### [facility] [address] [place] [address] Dr. Terence Hilario EGFR-AF UGANDAN >60 Normal >=60 [facility] Comment on above: Performed By: #### H GB #### [facility] [address] [place] [address] Dr. Terence Hilario EGFR-NON AF UGANDAN >60 Normal >=60 [facility] Comment on above: Performed By: #### H GB #### [facility] [address] [address] [address] Terence Hilario Globulin (S) [Mass/Vol] 3.8 g/dL Normal [facility] Comment on above: Performed By: #### H GB #### [facility] [address] [place] [address] Dr. Terence Hilario Glucose [Mass/Vol] 158 mg/dL Critically high 74-106 [facility] Comment on above: Performed By: #### H GB #### [facility] [address] [address] [address] Terence Hilario Potassium [Moles/Vol] 3.9 mmol/L Normal 3.5-5.1 [facility] Comment on above: Performed By: #### H GB #### [facility] [address] [address] [address] Terence Hilario Protein [Mass/Vol] 7.2 g/dL Normal 6.4-8.2 [facility] Comment on above: Performed By: #### H GB #### [facility] [address] [address] [address] Terence Hilario Sodium [Moles/Vol] 142 mmol/L Normal 136-145 [facility] Comment on above: Performed By: #### H GB #### [facility] [address] [place] [address] Dr. Terence Hilario Urea nitrogen [Mass/Vol] 12.0 mg/dL Normal 7.0-18.0 [facility] Comment on above: Performed By: #### H GB #### [facility] [address] [place] [address] Dr. Terence Hilario Urea nitrogen/Creatinine [Mass ratio] 11.0 mg/mg Normal [facility] Comment on above: Performed By: #### H GB #### [facility] [address] [place] [address] Dr. Terence Hilario DRUG SCREEN, UR-RFLEX CONFIR [facility] 12-30-2021 ALCOHOL, UR. Negative Normal (< 10 - Cutof) [facility] Comment on above: Order Comment: FACIL ITY: [facility] [id number] Performed By: #### D S-M+ #### [facility] [facility] [address] [place], [address] AMPHETAMINES, UR. Negative Normal (< 500 - Cutof) [facility] Comment on above: Order Comment: FACIL ITY: [facility] [id number] Performed By: #### D S-M+ #### [facility] [address] [place], [address] BARBITURATES, UR. Negative Normal (< 300 - Cutof) [facility] Comment on above: Order Comment: FACIL ITY: [facility] [id number] Performed By: #### D S-M+ #### [facility] [address] [place], [address] BENZODIAZEPINES, UR. Positive High (< 100 - Cutof) [facility] Comment on above: Order Comment: FACIL ITY: [facility] [id number] Result Comment: DAMIR ODIAZEPINES URINE SCREEN = POSITIVE Specimen sent for confirmation testing for benzodiazepines - [facility] test # [id number] Performed By: #### D S-M+ #### [facility] [address] [place], [address] COCAINE METAB. UR. Negative Normal (< 150 - Cutof) [facility] Comment on above: Order Comment: FACIL ITY: [facility] [id number] Performed By: #### D S-M+ #### [facility] [address] [facility], [address] CREAT, URINE 80.50 MG/DL Normal (20.00 - 370.0) [facility] Comment on above: Order Comment: FACIL ITY: [facility] [id number] Performed By: #### D S-M+ #### [facility] [facility] [address] [place], [address] FENTANYL, UR SCREEN Negative Normal (< 1.0 - Cutof) [facility] Comment on above: Order Comment: FACIL ITY: [facility] [id number] Performed By: #### D S-M+ #### [facility] [address] [place], [address] HEROIN METAB. UR. Negative Normal (< 10 - Cutof) [facility] Comment on above: Order Comment: FACIL ITY: [facility] [id number] Performed By: #### D S-M+ #### [facility] [address] [place], [address] METHADONE METAB. UR. Negative Normal (< 100 - Cutof) [facility] Comment on above: Order Comment: FACIL ITY: [facility] [id number] Performed By: #### D S-M+ #### [facility] [address] [facility], [address] OPIATES, UR. Positive High (< 100 - Cutof) [facility] Comment on above: Order Comment: FACIL ITY: [facility] [id number] Result Comment: OPIA UDAY URINE SCREEN = POSITIVE Specimen sent for confirmation testing for opiates to include oxycodone - [facility] test # [id number] Performed By: #### D S-M+ #### [facility] [address] [place] [address] Rd. [facility], [address] OXYCODONE, UR. Positive High (< 100 - Cutof) [facility] Comment on above: Order Comment: FACIL ITY: [facility] [id number] Result Comment: OXYC ODONE URINE SCREEN = POSITIVE Specimen sent for confirmation testing for opiates to include oxycodone - [facility] test # [id number] Performed By: #### D S-M+ #### [facility] [address] [place] [address] Rd. [facility], [address] pH (U) 5.0 [pH] Normal (5.0 - 9.0) [facility] Comment on above: Order Comment: FACIL ITY: [facility] [id number] Performed By: #### D S-M+ #### [facility] [address] [place], [place] [address]or Rd. [facility], [address] PHENCYCLIDINE, UR. Negative Normal (< 25 - Cutof) [facility] Comment on above: Order Comment: FACIL ITY: [facility] [id number] Performed By: #### D S-M+ #### [facility] [place], [address] THC METABOLITE, UR. Negative Normal (< 20 - Cutof) [facility] Comment on above: Order Comment: FACIL ITY: [facility] [id number] Performed By: #### D S-M+ #### [facility] [address] [facility], [address] TRAMADOL, UR SCREEN Negative Normal (< 200 - Cutof) [facility] Comment on above: Order Comment: FACIL ITY: [facility] [id number] Result Comment: This drug testing is for medical treatment only. Analysis was performed as non-forensic testing and the results should be used only by healthcare providers to render diagnosis or treatment, or to monitor the progress of medical conditions. Performed By: #### D S-M+ #### [facility] [address] [facility], [address] Coding Summary.on 12-09-2021 Coding Summary. CD:[id number] Gh 0bWw+PGhlYWQ+YB7TJQWjU 79xxCKzeL4DA4jPLF1RJRT XTVHPWC8UVC6wyIN6LYbiR 2VybiAv EyeeqYEyPG09QFo8RCR3lW vpALwbiX3keBCqK8j6PxYp WU55tI43ADfbMFDnVbI7Kx ZpbjsgbWFy K1nrWcUqkSUzLxb+PHRhYm xlIHdpZHRoPScxMDAlJyBz nCquYU7wMr4fUXIkTRSwbE xhcHNlOiBj w3pmGDLqFIaiUP6krDklA4 ClaZP3RTCwn8n6Sj74gJK+ JZXsFEO9yCffQVdsf678Hf Boi5tpPRD3 gGVnVThnSAM4S61qr5W9WQ WwBNTxTXY7yYC0aM2yrSmk ncdwG7PhpZGmKcO9YWN1kE DaiS8fePfn kbgcoV0mDvm+X35JTN1BFH TWTV6YVpy0T2TwWbnisAY+ SS54SRRtFI49yHIpxKOlp9 rhjLi6WmEj LBLbJDX7yYyaLPmsr7HtMP BzN46yoVUeu9I3CZGvxUox nUTeOsDqnFJ7fG9iTLjnek lhw5jojewx Evfbc6teju51oL87A73eZO vyXAYtYUX9EUKfSHTwzTsb rd1lkW7vEg1+AEpcl8tlw7 hguUf8IuNk EXXtrvPijKfjNRT8n3DgZh 67V5PcnCuva8QlQkm0vg63 hJHus1R8rFT8IKtpTZQljR 3fKRmaPlF4 NOJcIdGmoB74kEPbROfaCw 1bpRsabSpdTP3jRCFqkdey GTAyhM1jXOXveLSkiIwoQL 4wNTBpbjtm h960JsAmVZX0CCUqySSwW7 QvbJ4kKlDcPKZtMVOfI1Nu oLQhVFrlF299ZAukFrT4FV IpsoLmY3Ho ZFAleNsxFoF0m9J8Wh6Uq6 QyptjyNKH3MLskHSUhIcC2 UfTkQwO8O2HoUux2TPDvcB ftRX7fF1Dm UBYfyovvrnxhiRA1RMXqSO RflL25aKHgMQgwSu3gl4Y7 h977DNNxXZQpuA43Fv4vjA ogMTBwdCBU oE5svitnp2gdberoRqBuCB RzCHl3CSz0VIQuoNimBzGn IPC8VrQ1UAW7uCIdqH0chC dydeboeR5b Oyc+C21woD0qTKN6POO2uq vqRUVrbfIzTU50BC42F4Mz PjwvdGFibGU+PGRpdiBzdH wxRA4vKyEm t8smb4MdNJlyG9VaYFDlRE mdLya5UYVhUDJ2vZK3cZ0n GOMxHUcsi2C0cPW5B1Oevd Dohb3jw0be EHHkUAajF17emWJic3F6WT TmyKF0IULmbShsZfXvpZ58 Oyc+LPGohPpcg3WwTspxu8 juf2wjoLq0 RgElEAXeytSsiSgyNFB8t6 NkBi82G92vQSjuEYNrNQPh PNNzXQXxgRhxrg0vmP0eNh 8+PGNvbCB3 gCX2bD9sAQYgIwG5KWkeZ5 62RmObpNJuEzsne0edl8ce aHq0HmSzBONucmEejHshIM V3b7MhXp24 F30dCArmMLEcGJGaTXOyFC TrxShmpm7xfD1gPm5+PC9j p4wdex96bV31yAM+PHRkIH Y3iYbtZNcp LBJswI8aJEugTeK9LTWqKw EduP91nRSaCIoaLe2kmMxb lQdqZR1eCLJeaweqi848Xz Ica6roJDRc uTGiWGapRGX6J38fn6O5CR LbQJObBVN3jER4mM2giRwa bjogbGVmdDsgdmVydGljYW vuFFiiE419 IHRvcDsnPlBhdGllbnQgTm WmKKu0H7AhNza8MWDnzLxk UC0bhBJaUPecFz0hhBjfkB waAV2tNNBg ftmin473CiWcx5onKTMhsC OfEShiQAV3I66rh6H1BCCn ZNHeWXD1qLD1xB2flCyvuu ogbGVmdDsg kgHilJbaWWckYEdeA279GP RvcDsnPkJpcnRoIERhdGU6 LU83XX38zEHnu6D7zMI7H2 BhZGRpbmct aywvdDW1ZXNtOZMydH65Og 7raKpxVi4eEKKmKRM1YMEd uTEyC5VylY2iPoNjTHQaNQ IjX5XsfEPr UPupS810MDkxRaG4SPOlcw JwC6WoBCIceZqaIpY5r6J1 Ow3HA3Q2MT80LI45eHJoq5 K1gCS6N5Pt AXYucjhngxhpbXR5QUUnLF AjtV15Cu9fdQuaGr5rWBUn UAO3LQQftUBdY6VlvZ2iCv AjMDAwMDAw Q6CjzLWcSTraY354JTglYd W5CJLuimJnW8CvMOVvqIkt DtW7q2J9Ll2RXOb8CY40CI 47uOVgq7B1 lCE4S4DlDNIouobuskxtdZ N5NJXyRLFmlO53Ph9sfSmc Mw4oHDXvWGS3BEMgkNNgN0 JfjI0vKaBf NXMaBBMlD4CzrHJnJUlpL1 76JTbrQoI9BXNuchSyB8Id FASktLscSuQ1r8S5Ua2CBH JwGL87DHK1 rWT3SM25DZ30B1HrXciwhF FibGU+PHRhYmxlIHdpZHRo VKwhQGEmEuNmaDvpKZ4jMq 9yZGVyLWNv eTjnjIGtNtDgz0ocHEKdXD lcZD3pzMimN7BkoHJ5YIMl w8k5Vv44R33gI4ZugOL+PG EdaLH5qYI8 bN2eJuKdEqW1ADpmM961Cs YmjBGlHepmo3wos4tmjOy4 UaF9JYCvwbMkaZsiBNZ2m4 NqIs65K28s IHdpZHRoPSIxNSUiIHZhbG yqvq0xzQ1lVo5+PGNvbCB3 qCH1rN8yVrSyYpR9PGphC3 49InRvcCIv Fvgvg4kws0bovMz1LtTtET QtrtPzeDuhKFP5f2NjWl29 L2GsrXund2RqOjk1vl27pU Eff2F7wNI3 H8PxWAAjfltucAGhgUilIE 0dINFwvamqAEPhvS0cWKNu A7w8YyXsMtM7RJnpE0Kpov C1ZKQrrHRv CWpiCEV4T76zl4T4JSNpMB TiLML9zNW0wG7taFwgumir bGVmdDsgdmVydGljYWwtYW uiL345WBCj cNdzARYcaL2lLFCufRQewO sbNJ4sKKAmfnxyZqWOZqcK FaIwLQZXId0YQV20AT18rL Uqd7J8uNK6 B6RoDCXdeqbpppkmzQA0EA StDCWyfN74kTScWBvqOg2l h6B4b426ZLZcDRBobL29Px 9udDogMTBw zSAIgL1gczrsc1mrwhndYt XiTMScYSb0ICx5PZMocWby JtKbFXB0VpZ6IRA1pJQbfJ 1hbGlnbjog cY2oFxy+ZXgkBLOsZZv5NP wvdGQ+SZEaOOV0nQzxTVog LQFymQ7wMBQpX3u4IxNaTs B5NIqjK7Pb HRMtuolqGc28pY6sJvMgGo T5NPdtG4HltgN7VKJmgBAm IDjxVNB0R29ae8U7GYZwBF UmRYI0zED5 zO6ktEsotishiUFxwMtuht RlrFxjWXboFVpvX699SKSn iXhoNmlaLQixCWOaAB61LG 52fXKwf3I2 xGN6F7ClFSOqohhgfowbfC C4JXYdXMOdxD38nGXtTCsf Js4mu7Z8h800NNTbPNHvcR 05Fl6lwAmy MDJvrIUVcV1qzlszg9dyys jsJcQdUABeUIk8VCy0CSQs oFmdQgIkPDA2TxG4SIO0jL ZmsY1meDav ulgokR1tDsf+TWFsZTwvdG Q+WVLaZXB9bEewDUzwEQDm rX3zXBAqE1w3DbWmCrE7EB nwL2FwXXRk hwayFg79sI6eBxZdLcZ2LB kbK0NnhbZ4QLJnmONeKRvt YRO9M33mt2T8DNHnKSIvVT T6iXI2gU7v bGlnbjogbGVmdDsgdmVydG lpRAeoRSmxZ663YPHrmWfm EzrgKtOVsx7cVJ0zXhhvwT Q+ON92sr01 E4ErLcptEhd7ZNUwJRR3pR M2pG0xPYQxAQsdb3Z2mYC7 Z7WihsDhbc3mn4uwNBQqUW obT74ajWJe s1D1ITZgxYH7ONTriGzbQa QysI58Ezo+IGHubFvmt4Uj Extdj8raz5cvhOu7FsNnNK IgdmFsaWdu TFF3a0JdNw33H22fUEfsSK ShABZiPZOnMSWbyGecku5d nV9kFy6+YUGzeBT8cLM2rP 4tVsHzFeO4 CRzsB751YcEbnUQwLzkzy6 kgr2watYs0YtEaWSOfdkLz iRbhNEP2l6ZzQy42M9ZcmW wcu4WwHhd9 pm29qOObe1C6tAC4X4RuME LfilrccVSapMtrBU3sFZZc myqoPKKcoG3iLAAaC2a6Vw KoFxC6AJnr X6JdzzJ0UVXsuSYyRRSdrH COcW0ubfjvg1jikgrxYhSt DXNqJLz8CVq2LYJnoOzwLw JoSCQ0EjM0 FIC7dZMriI3ysTvsuhuzuV 9wOyc+WIn8m2hhfOMmUT0d vLG7NV16PW18zOFtx8L2fE H3G6KfOVEf chrtpbyzwOS6GEVuQSJqkP 13Gr7xfEalOc5lBXTfUUM8 QTTbjAPbA7VxkL1fGsHjXO DiSKQoP9Do vFRxKZsqC028BFonWeC1JK KvlyPeI3FkQUTwcOldFoO9 a0D1Eo2FZH25DF74HI59sY Qaw3N1fCB2 P4ZfAFFhuxypczufaEN0JZ FkNMXbxR29Iq1ezMibDz5h CGUrWZV8WYRzcTObC0SdkL 9yOiAjMDAw ZLTmE3KxhUEhJQqeK907EY qkHyR9NOUktdTwN7ToDEQq zWjrIyC8k0K3Fh7FGn04TC 93TP57lKZn o7S2kXB8T7HwKCGufwcfgt lygPY2MCQaFSJlzF10Rd1u wHlcTk6yIIGyHMA0MJTkxX HkQ2NiqC8k OxYtXBJyBAVwJ3DsqUDyNW yuQ851TArhDmN3NXBgnmTn P0EtLSMqiCalZgQ3e9G6Wf 0VZCgxqjx9 R6SoRylcnES+EF69HKMaEN 46jJJbwYAyi8rqqCs5XtEm CSQaNHZ2bDxsPNzxd4KrNK WlO66coELb c2U6 (more content not included)... Normal [facility] Blood Gas Art, with Lytes, G joseline, [place] 12-01-2021 a/A Ratio Art 64.70 % Normal >=0.80 [facility] Comment on above: Performed By: #### 4 [id number] ####[facility] [id number] [place] [address] AaDO2 Art 30.4 mmHg High 5.0-15.0 [facility] Comment on above: Performed By: #### 4 [id number] ####[facility] [id number] [place] [address] Allens Test Not Applicable Normal [facility] Comment on above: Performed By: #### 4 [id number] ####[facility] [id number] [place] [address] Base Excess Arterial 2.8 mmol/L Normal >=2.8 [facility] Comment on above: Performed By: #### 4 [id number] ####[facility] [id number] [place] [address] cCa2+ Art 4.83 mg/dL Normal 4.40-5.30 [facility] Comment on above: Performed By: #### 4 [id number] ####[facility] [id number] [place] [address] cCl- Art 103.0 mmol/L Normal 101.0-111.0 [facility] Comment on above: Performed By: #### 4 [id number] ####[facility] [id number] [place] [address] cGlu Art 110 mg/dL High 55-99 [facility] Comment on above: Performed By: #### 4 [id number] ####[address] [address] cK+ Art 4.3 mmol/L Normal 3.5-5.3 [facility] Comment on above: Performed By: #### 4 [id number] ####[address] [address] cLac Art 1.6 mmol/L Normal .5-2.2 [facility] Comment on above: Performed By: #### 4 [id number] ####[id number] [place] [address] cat scan tech+ Art 140.0 mmol/L Normal 135.0-145.0 [facility] Comment on above: Performed By: #### 4 [id number] ####[facility] [address] [place] [address] Drawn by MAGALIE Invalid Interpretation Code [facility] Comment on above: Performed By: #### 4 [id number] ####[facility] [address] [place] [address] FCOHb Art 1.1 % Low 1.5-4.9 [facility] Comment on above: Result Comment: Refe rence range Nonsmoker <1.5% Smoker <5.0% Heavy Smoker <9.0% Performed By: #### 4 [id number] ####[id number] [place] [address] FIO2 BG 21 Invalid Interpretation Code [facility] Comment on above: Performed By: #### 4 [id number] ####[id number] [place] [address] FMetHb Art 0.2 % Normal 0.0-1.9 [facility] Comment on above: Performed By: #### 4 [id number] ####[address] [address] FO2Hb Art 88.7 % Low 93.0-100.0 [facility] Comment on above: Performed By: #### 4 [id number] ####[address] [address] HCO3 (Bld) [Moles/Vol] 26.7 mmol/L High 22.0-26.0 [facility] Comment on above: Performed By: #### 4 [id number] ####[address] [address] Hemoglobin (Bld) [Mass/Vol] 11.1 g/dL Low 12.0-17.0 [facility] Comment on above: Performed By: #### 4 [id number] ####[address] [address] Oxygen saturation in Blood 89.9 % Low 95.0-100.0 [facility] Comment on above: Performed By: #### 4 [id number] ####[address] [address] P CO2 Arterial 51.4 mmHg High 35.0-45.0 [facility] Comment on above: Performed By: #### 4 [id number] ####[address] [address] P O2 Arterial 55.7 mmHg Low 80.0-100.0 [facility] Comment on above: Performed By: #### 4 [id number] ####[facility] [address] [place] [address] pH Arterial 7.361 Normal 7.350-7.450 [facility] Comment on above: Performed By: #### [id number] ####[facility] [id number] [place] [address] Sample Site R Radial Normal [facility] Comment on above: Performed By: #### [id number] ####[facility] [id number] [place] [address] Sample Type Arterial Draw Normal [facility] Comment on above: Performed By: #### [id number] ####[facility] [id number] [place] [address] FT Blood GasesOrdered By: Ra eliseo Herrera [...] - 2.2 mmol/L [facility] Resp Auto SS cat scan tech+ Art 140.0 mmol/L Normal 135.0 - 145.0 mmol/L [facility] Resp Auto SS Drawn by MAGALIE Invalid Interpretation Code [facility] Resp Auto SS FCOHb Art 1.1 % Low 1.5 - 4.9 % [facility] Resp Auto SS FIO2 BG 21 Invalid Interpretation Code [facility] Resp Auto SS FMetHb Art 0.2 % Normal 0.0 - 1.9 % [facility] Resp Auto SS FO2Hb Art 88.7 % Low 93.0 - 100.0 % [facility] Resp Auto SS HCO3 (Bld) [Moles/Vol] 26.7 mmol/L High 22.0 - 26.0 mmol/L [facility] Resp Auto SS Hemoglobin (Bld) [Mass/Vol] 11.1 g/dL Low 12.0 - 17.0 gm/dL [facility] Resp Auto SS P CO2 Arterial 51.4 mm[Hg] High 35.0 - 45.0 mmHg [facility] Resp Auto SS P O2 Arterial 55.7 mm[Hg] Low 80.0 - 100.0 mmHg [facility] Resp Auto SS pH Arterial 7.361 Normal 7.350 - 7.450 [facility] Resp Auto SS Sample Site R Radial (12/01/21 2:28 PM) Normal [facility] Resp Auto SS Sample Type Arterial Draw (12/01/21 2:28 PM) Normal [facility] Resp Auto SS HEMOGLOBINon 12-01-2021 Hemoglobin (Bld) [Mass/Vol] 11.1 g/dL Critically low 14.0-18.0 [facility] Comment on above: Performed By: #### H GB #### [facility] [address] [place] [address] Dr. Terence Hilario LAB TESTINGon 12-01-2021 RECV HEADER SEE SCANNED REPORT I N [facility] Comment on above: Performed By: #### H GB #### [facility] [address] [place] [address] Dr. Terence Hilario REV FROM REF LAB 12/01/21 [facility] Comment on above: Performed By: #### H GB #### [facility] [address] [place] [address] Dr. Terence Hilario SENT TO REF LAB 12/01/21 [facility] Comment on above: Performed By: #### H GB #### [facility] [address] [place] [address] Dr. Terence Hilario Physician Orderon 12-01-2021 Physician Order [id number]#1.0 0CD:127 Normal [facility] CT CHEST WO CONon 11-11-2021 CT CHEST [...] by: KAY MARROQUIN Date: 2021-11-11 06:41 Normal [facility] Ambulatory Visit Summaryon 0 08-18-2021 Ambulatory [...] MD, Cintia Hernandez Where: [facility] Patient Educationon 08-19-19 Patient Education Urology Benign [...] Follow these instructions at home: ? Take vnnl-hln-yuuwnnc and prescription medicines only as told by [...] You d (more content not included)... Normal [facility] Urology Office/Clinic Noteon 08-18-2021 Urology Office/Clinic Note [...] [facility] [address], [place] [address] [phone] Additional Instructions: Patient Education Benign Prostatic Hyperplasia [...] tab(s), Oral (more content not included)... Normal [facility] Comment on above: Result Comment: Elec tronically [...] KYLIE RUEDA./Sex: 1950 Male Med Rec #: [id number] Physician: Cintia Alves Jr., MD Financial #: [id number] Pt. Type: A Room/Bed: [place] [address] Admit/Disch: 05/21/21 08:27:49 - 05/21/21 13:00:00 Institution: [...] Salazar Role Performed HEATH Surgeon - Primary Nursing Program Coordinator - Primary Time In 05/21/21 10:02:00 05/21/21 [...] Mimi Alicea CST, Merlyn Baltazar Role Performed Nursing Program Coordinator - Primary Staff - Other Scrub - Primary Time In 05/21/21 10:02:00 05/21/21 10:02:00 05/21/21 10:02:00 Time Out 05/21/21 10:47:00 05/21/21 10:47:00 05/21/21 10:47:00 Procedure CIRCUMCISION ADULT(.) CIRCUMCISION ADULT(.) CIRCUMCISION ADULT(.) Comments 2nd scrub Last Modified By: Michael RN, Marifer Rodriguez RN, Marfier Rodriguez RN, Marifer Young 05/21/21 10:47:53 05/21/21 [...] and tissue Entry 1 Skin Integrity Intact, Emily, Warm, and Skin Abnormality No Dry Outcomes [...] CIRCUMCISION A (more content not included)... Normal [facility] Patient Educationon 06-10-19 Patient Education Urology Circumcision [...] personal one. It is often based on mormonism, social, or cultural beliefs. Circumcision is most [...] 01/28/2001 Document Revised: 07/17/2018 Document Reviewed: 07/17/2018 [employer] Patient Education ? 2019 [employer]. [facility] Urology Office/Clinic Noteon 06-09-2021 Urology Office/Clinic Note [...] 08/09/2021 EDT [facility] [address] [place] [address]- Additional Instructions: Patient Education Circumcision Information Billy [...] Daily o (more content not included)... Normal [facility] Comment on above: Result Comment: Elec tronically Signed By: Shawn Allen MD, Cintia Hernandez\.br\Date and Time Signed: 06/09/21 11:51 EDT\.br\Electronically Co-Signed By: Billy Bell\.br\Date and Time Co-Signed: 06/09/21 11:49 EDT IntraOperative Documentson 0 06-02-2021 IntraOperative Documents [id number]#1.0 0CD:127 Normal [facility] Coding Summary.on 05-28-2021 Coding Summary. CD:[id number] Gh 0bWw+PGhlYWQ+FW8GELXcF 42reMEytW2TO2bVTD4RDPK DNXACNN9FIM2vhCS8NRfeJ 2VybiAv SpomiJBsCL64EUn0LSK9vH usVBxifG2vyKKzJ2c9ClPr PO41aL68MNzrHYYnNiH1Lf ZpbjsgbWFy H1pqXtDgkVUaNuf+PHRhYm xlIHdpZHRoPScxMDAlJyBz mOieCT2pQg2tUFIiAAIefO xhcHNlOiBj j9qySSHiHAyoGA7pxBwxI9 YdsGO8QCEmy1v0Sm41sMK+ QHToXWS6hRdvLGsqo891Mx Apy1ycNLI8 vURaAWxaHVL2E10kf1O3FX IoDWNmTSH6wKX0hM7wwQld qrbqW1HuzEQnWqL2VKU9tI VftV7lkWtd eugzkG4hHux+P09NTQ9QBJ AMPY7WZnk8P0WkOcqkoZF+ TV45PENuUP41kXSxaFDld8 kmkVw0BiZe MWZbRBK9nVruTIacz6NzDH EjJ53viCJtz2R5SPOmsOof hRVoSlLxhOT5sR6wWPpokh ttk3dwobyj Efjvy8fndt00qQ70S63vHU kjCLHbXKX6XVItRQCldXvx cs5owR3oXt6+JQsdf3nlc8 npmDa9XpLj JEEcxbFqbLeoUUL2c9CaZt 23I7WuiXhlt3ErQgw6er31 oRFhz7O6lBI7UZghAMSspJ 9jQTxiTlJ6 MINtSwOdvI52gTJfVOwiBm 3jgDuejYjjFG7lALPmwpdb BSWjpY5pTHNljAAsvJnbFU 4wNTBpbjtm f687ErFbGOK7KOFltQDzN6 XwlJ0bAkKtZADiNHDqM2Rm vEVvBZovD697UYgjYlM1OF JeqbThK9Cy KITxpUruMzC4h4S5Jk6Jx6 JavedjXNU6OZljCJZ0CiL8 LgLtOzU7Q3EwOye0VNRueI uyFM7lA8Bc WBQytcdwhsmblUR4QQLxIA CukA29yVRqVXewFd5ei7Z9 g324FEHuPTOauT36Pt2deD ogMTBwdCBU eZ0qewnxr9wpqlkqHoFyRS NdYKg2KAb6JYQwzRodSoDq XPB5PzD3GGY7bUWcjA4ijT ipkzzllU6g Oyc+U84wyS3pPDS9JUV0ns beBFRfgdLiRD90QP44X9Og PjwvdGFibGU+PGRpdiBzdH ngEQ8jGkUs g5qti0HsZFmuZ4SsDXWzOZ gbFap9MCJdFHE8uZZ4rF2b KNZrRFbqi0D8xZV0L0Fwjv Bwrw1yg1ge SVUgPCxiM42xyMZjg8B8NI JmjKN9YNTjpFlpPpWgcG18 Oyc+TIUknDvbn9IdDlzwv3 qbo3pvdOd1 QzWyBGIvioYhuJbeBDM6t9 RsOy50U43oDNamVUTfNXBz WQEuITSadSyeiz8vgU0mJg 8+PGNvbCB3 aWH4yU0iOHKeYvX0ZIucV4 34JkTizVIiHcmte6ots0wo yOb4FxTpAXXkyhBytDwjDA L4o8VhQt95 P02gEOfqEOKnWILsRNTiZA GayUpkik1tkU1oCz1+PC9j w8gykd58sM02sHU+PHRkIH H6bHumNRny MCMkgW8yVNviHsD3NZJsTs UmqD21gZZhWXunRh1vaYgr bDqmOB4eIPPemfzhw731Og Vcq5nkELRz vJFnEJjyVVL2P70gs1P1DC GkSLOtUID5aTX9zX1rmLyc bjogbGVmdDsgdmVydGljYW fvTLhsZ731 IHRvcDsnPlBhdGllbnQgTm IoNIt0V0KkBbt6AJQgaRik QJ9yhGVzNTuzIw4krCmgfN diNC7sQKHq baxdy595QdJpw3eeRIOhwL EuIKauAPG4J28gb2M6HMUy YHUuBQE1jPE8cG6gqTmemg ogbGVmdDsg yvIxnLoxYZxlKXmmY018NE RvcDsnPkJpcnRoIERhdGU6 VS01MW09tKVmg0K0gTF3Z0 BhZGRpbmct uzepoQN8DFBuULZpuJ52Vk 8pfKqmKw4cBBMkDCN8HVSm qRJpM7VgqF6ePoFfBQFqXD LqM5UerZCm TRtnL632CJtdYsZ3ADAkps NuQ5OeCERqwXquMrD0w9I0 Iv8NE1Z1UD78GA07sYRps8 B4tBD9S7Ma YJCaugfcvvaiwWL3WCBaAU WpqF26Vw0oqMpqRs4jLLWk BKR2AUQldDGrS9XetZ6iEy AjMDAwMDAw T2BbrCMpLYhtG006CFwtRt G3ZMGgcgAhQ3VxENIrfSmu GrH3e4K5Ek5JZRh1AX49NY 50rXDft5F0 dSD9S6CgJKKmiwjcleftnO G1PHNiWPSlzZ35Kl9hxQel Zn7fDHIqMUH0CAOsaSXxV3 RudO7mWcSe CVAqYGQvT3UzsWDpSAtpV4 82JZrePsJ4DQHahcLgQ5Zs ZEPoeXegBtD8h5U8Zx5DFG AmDT04BDN6 cTE1RY33IP92F2WfEskhbS FibGU+PHRhYmxlIHdpZHRo ZJdnXUKhOkHclVkpGE3hSp 9yZGVyLWNv bNoirAVkDdSsa4yxFGInSW raCC2ytWrhI1RplRT0PRXm w2m4Ld81Q08bR0DueEJ+PG FjuXP1fPF9 cU9kYaNnZkU2ZMsuB950Jb HitGRoLeurf8snn8amqWy6 TcH1JAEuluQgpJauURK6h4 GmAd38M92l IHdpZHRoPSIxNSUiIHZhbG ljhi9nnB4jEy3+PGNvbCB3 rXC8aG7zNcGwKeZ1MQfgL7 49InRvcCIv Ozfkh2xka4owpCb6ScYtIF VfgcKujCtjEAE2h8NxIl65 H4KznTght7BjDqh6ej66oC Qtv4Y0oIS2 W2LnZZVdneqvmKQbeKlzUE 3sUTWnxgscMHXniG8pYBNb P8o0MbCnGwC6HQfzH3Thnk R7BLApeZMv HKpgIZK1R40nf5U5QEBbSR NbZGL7aMG5zV1ogRmqouig bGVmdDsgdmVydGljYWwtYW odM006YOIu zBylRGHhnA0rWTGpsLRbiM tcTX3qGZUskqqpBtCOAjkT LaMcBSBGNg1BHN07GA86gD Pbs9P5dFV3 J2FzJUQpkufvpluwrAT4HK YtXIQlrB17jERkLIkeLr0q z7K6o767NELkNDXwpE24Km 9udDogMTBw qXZAhS0ezxfsr7agdklyIm BzRIPxUNz0BGd2TCIkeBvp GcMlKNS4JpF7NSK8fGPniT 1hbGlnbjog kR7hVma+JJwyPJBoTEu6CA wvdGQ+HEHnHGX9tNbtFXda ORAvzB6bMSAuI6m0VnTgRj S2YWmlH0Qb HJQytxnrUv37pC4iDbTeMp Y7HImzI9VwflO1AQFjaLDo YGpkRCV4P49az9O7VUDxVI JyDJI8ePZ9 wW3hxMeigfuvsPPiqPohqy OysFajCYcpCHcqV751HHHp yUeqAtmlOQhfAVLuNX61LO 99qZSyl4V0 nHJ2E6OhLIAzbwmjsgyqaU X3CBDmSRTqaW90nLKeDKwp Dz4lw9E7v072AAWcEACbkZ 69Uj6elDlr QWDtlUVHpS4rrobhg8lycs xmDzNsHHZvWBh4JDc3WSVg fSfrZkIkHEM5UrZ3YEU0vQ EeiS3etFhk fmhdoC3hBfr+TWFsZTwvdG Q+AQZrKKQ3zCqzRLkhQZGe vL4dPADpJ0e0DhXtOvF7JR pyJ3FaOXDf mpgeRx34uL8gOpBeLoQ7QN jrY4KbbtN9MHDmfOSdJCli IZS8O91ut2R2FLDjADMcOL K5vOZ8hO4a bGlnbjogbGVmdDsgdmVydG pfBBsxBHoiD187DMZcjUxb FyQdGtKfDPPargxsK8VhDP LIBXjzO4Ii Q0VsyXnrfRA+QG78gk26I1 MeHkyiHfk3IRAoSHU5eKW0 uA3tXTDeGDpwz0H6jFN4Z4 XldvRfip1n e0myXKLyKWyuM72itLHys9 G2CMCvwWT8TZBjwCqkRnQd dE02Hdy+RXQygAzov5NlUj sxk7zut9of hYm6WoTdMPFagaFtxTpzWN D6r2LoMs84H08oXYeoXAJa UBJbYVPvKIBpyRbcki3zwS 9wIi8+PGNv jMB2nOV0yA1iJyLfMhW4DI geB653GjAtuUTbTzecc2ij a3qxgZz3EvLhJBSwmoLntB viUMX1w6Fv Zx12T1NfbThsg0AqQml2qq 79tNFjv6B4oST4J5LhLXAa dzyqiQMmoAfpZI1pGDVget tvIZJswT4w MIRiM6u8XiTzAuU4WEuaS7 XhcuN0ROXgzWGeXGDvvPDO hA7uxzors5mvaeawCqAhHV LxPCw9FAm6 KNWddPofUkBkIKI0LwA9BU Q3iRCqaI0zlUlzzojhwC4y Oyc+LQo3x0pgkDKnNZ3hzH X2LZ77ZD44 cSMsw9X9lYS1S5OaVYIzbk jsnhhqqST5FZSvHGFayK59 Vx3vmGqwNi5rUQVkVDF4YG VdpURuG8Rn eD8cSeElIAWbJHEuS4LofX OqMSqsR016GPzeXmX4QMAo mlYsL6UwJVOxnCorEvA3k2 J4Ft7KMV28 ZC68NA44dQGmz9U5fET2O8 AkLRDlvyukqdshlWI0QZMo SPBkjC99Ce8xpYwoYd7gDC TaOIX4FXJt zDRtN3LrzG0jXfTtUIUhDY QuJ7WgsTIhXBqiP163XAug ThB2SPKjjdSeJ3FuITKoiK ntSyN5g0V8 Qg8IMu14AY98MV32jGCwd4 F8vMT5H3SnZYHkdiklltab xWU0FEOaPUKubV65Hh2neN cnYj0nVQFx YRK2JTAuyTXeJ1CmdD0kTm SuNWWgVWHjT4QmyCVrPNki L761PMgdYcR5VCUbdoAlY4 FsLWFsaWdu EkV2j7A1Gn1FFSdfiiy7X5 RkPjwvdHI+PK08CEOoZD71 nNGacIWby4bjrDs2SyCpZS JyOXJ3bIox PSdi (more content not included)... Normal [facility] Progress Note-Physicianon Progress Note-Physician Patient: KYLIE RUEDA Age: 70 years Sex: Male : 1950 Associated Diagnoses: None Author: Rhys Salazar Jr, DO Postoperative Information Post Operative Note: Post Anesthesia Care Unit. Anesthetic utilized: General. Health Status Allergies: Allergic Reactions (Selected) Severity Not Documented Contrast media (iodine-based)- Anaphylaxis. Problem list: All Problems BPH with urinary obstruction / SNOMED CT 7914424771 / Confirmed Back injury / SNOMED CT 8054812402 / Confirmed Complaint of insomnia / SNOMED CT 131863586 / Confirmed Phimosis / SNOMED CT 8830225775 / Confirmed Urge incontinence / SNOMED CT 902504953 / Confirmed Resolved: CVA (cerebrovascular accident) / SNOMED CT 067641653 Resolved: Acid reflux / SNOMED CT 818786155 Resolved: Hx of shortness of breath / SNOMED CT 6171764557 Resolved: High blood cholesterol level / SNOMED CT 25761695 Physical Examination Vital Signs 05/21/2021 11:25 EDT [...] 24 hr (more content not included)... Normal [facility] Comment on above: Result Comment: Elec tronically Signed By: Rhys Salazar Jr, DO\.br\Date and Time Signed: 05/27/21 09:35 [...] bedtime), # 30 cap(s), Refills(s) 6, Pharmacy: [facility], 181, cm, 04/28/21 12:55:00 EDT, Height/Length Dosing, [...] BPH with urinary obstruction / SNOMED CT 6470732493 / Confirmed Back injury / SNOMED CT 8146350584 / Confirmed Complaint of insomnia / SNOMED CT 648756003 / Confirmed Phimosis / SNOMED CT 0385505954 / Confirmed Urge incontinence / SNOMED CT 769109671 / Confirmed Resolved: CVA (cerebrovascular accident) / SNOMED CT 910268361 Resolved: Acid reflux / SNOMED CT 419894759 Resolved: Hx of shortness of breath / SNOMED CT 9686853612 Resolved: High blood cholesterol level / SNOMED CT 84988940 Histories Past Medical History: No active or resolved past medical history items have been selected or recorded. Family History: No family history items have been selected or recorded. Procedure history: History of hernia repair (8101291536). Arthroscopy of knee (307009812). Complex reconstruction operations on wrist and hand(excluding arthroplasty) (125788875). Cardiac catheterization, combined right and left heart (80742352). 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 Social History Social & Psychosocial Habits Alcohol [...] arm Mean Arterial (more content not included)... [facility] Comment on above: Result Comment: Elec tronically Signed By: Rhys Salazar Jr, DO\.br\Date and Time Signed: 05/27/21 09:32 EDT Postoperative Documentson Postoperative Documents [id number]#1. 00CD:127 [facility] Consent for Anesthesiaon Consent for Anesthesia [id number]#1. 00CD:127 [facility] Consent for Procedure/Surger yon 05-22-2021 Consent for Procedure/Surgery [id number]#1. 00CD:127 [facility] Discharge Instructionson Discharge Instructions [id number]#1. 00CD:127 [facility] IntraOperative Documentson 0 05-22-2021 IntraOperative Documents [id number]#1. 00CD:127 [facility] IntraOperative Documents [id number]#1. 00CD:127 Normal [facility] Preoperative Documentson Preoperative Documents [id number]#1. 00CD:127 Normal [facility] Preoperative Documents [id number]#1. 00CD:127 [facility] Consent for Treatmenton Consent for Treatment [id number]#1.0 0CD:127 Normal [facility] H&P Updateon 05-21-2021 H&P Update [id number]#1 .00CD:127 Normal [facility] Inpatient Patient Summaryon 05-21-2021 Inpatient Patient Summary [address] [address] [facility] Clinical Discharge Instructions PERSON INFORMATION Name: KYLIE RUEDA PHYSICIANS Admitting Physician: Shawn Allen MD, Cintia Hernandez Attending Physician: Cintia Alves Jr., MD PCP: DAVID GARCIA, JENNY Discharge Diagnosis: Phimosis Comment: PATIENT EDUCATION INFORMATION Instructions: Circumcision, Adult, Care After, Udlz-cl-Auwv; Post Op Patient Instructions - FT (Custom) (CUSTOM) Medication Leaflets: Follow up: With: Address: When: MAURICE MEDINA [address] [place] [address] [address]. [place], [place] [id number] [facility] () Within 2 to 4 weeks Comments: Postop visit wound check. MEDICATION LIST New Medications [facility], [address] [place], [place] [id number], [phone] acetaminophen-oxycodon e (Percocet 5 mg-325 mg oral [...] day (in the morning)., heart Comment: Normal [facility] Main OR PACU I Recordon 040 Main OR PACU I Record PACU Phase I Docum ent Type FT Summary Primary Physician: Shawn Allen MD, Cintia Hernandez Finalized Date/Time: 05/21/21 11:29:49 Pt. Name: KYLIE RUEDA /Sex: 1950 Male Med Rec #: [id number] Physician: Cintia Alves Jr., MD Financial #: [id number] Pt. Type: A Room/Bed: [place] [address] Admit/Disch: 05/21/21 08:27:49 - Institution: Case Times [...] Gómez RN Document Signatures Signed By: Tonja Gómez RN 05/21/21 11:29 Normal [facility] Main OR PACU II Recordon Main OR PACU II Record PACU Phase II Document Type FT Summary Primary Physician: Cintia Alves Jr., MD Finalized Date/Time: 05/21/21 12:59:05 Pt. Name: RUEDAKYLIE/Sex: 1950 Male Med Rec #: [id number] Physician: Cintia Alves Jr., MD Financial #: [id number] Pt. Type: A Room/Bed: [facility] Admit/Disch: 05/21/21 08:27:49 - Institution: Case Times [...] By: Iesha Majano RN 05/21/21 12:59 Normal [facility] Main OR Preoperative Recordo n 05-21-2021 Main OR Preoperative Record PreOp Document Type FT Summary Primary Physician: Cintia Alves Jr., MD Finalized Date/Time: 05/21/21 10:19:02 Pt. Name: KYLIE RUEDA/Sex: 1950 Male Med Rec #: [id number] Physician: Cintia Alves Jr., MD Financial #: [id number] Pt. Type: A Room/Bed: [place] [address] Admit/Disch: 05/21/21 08:27:49 - Institution: Case Times [...] Signed By: Marifer Rodriguez RN 05/21/21 10:19 [facility] Monitor Recordon 05-21-2021 Monitor Record [id number]#1. 00CD:127 Normal [facility] Monitor Record [id number]#1. 00CD:127 Normal [facility] Operative Reporton 2 Operative Report Patient: KYLIE RUEDA Age: 70 years Sex: Male : 1950 Associated Diagnoses: None Author: Cintia Alves Jr., MD Postoperative Information Procedure: Elective circumcision Date/ Time: 05/21/2021 10:55:00 Preoperative Diagnosis: Phimosis (CTG81-CX N47.1, Discharge, Medical). Postoperative Diagnosis: Phimosis (KHP09-DZ N47.1, Discharge, Medical). Performed by: Cintia Alves [...] 00 ml. Complications Anesthesia type: General. Normal [facility] Comment on above: Result Comment: Elec tronically Signed By: Shawn Allen MD, Cintia Hernandez\.br\Date and Time Signed: 05/21/21 11:00 EDT Outpatient Surgery Discharge Instructionon 05-21-2021 Outpatient Surgery Discharge Instruction [place] [id number] Patient Discharge Instructions PERSON INFORMATION Name: KYLIE [...] When: MAUR[facility] MEDINA [address] [place] [id number] [facility] (1) Within 2 to 4 [...] to serve you. 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 ? Change your bandage as told by your doctor. ? Leave stitches (sutures), s (more content not included)... 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 ? Change your bandage as told by [...] it is okay. ? Take or apply awzk-ctt-zrfutra and prescription medicines only as told by [...] 07/19/2008 Document Revised: 01/13/2018 Document Reviewed: 02/08/2017 [employer] Patient Education ? 2019 [employer] [facility] Consultation Noteon 05-21-19 22 Consultation Note [id number]#1.00 CD:127 [facility] Outside Recordson 05-20-2021 Outside Records [id number]#1. 00CD:127 [facility] RAD - CT Reporton 05-19-20[address] RAD - CT Report [id number]#1.00 CD:127 [facility] Coding Summary.on 05-14-2021 Coding Summary. CD:[id number] Gh 0bWw+PGhlYWQ+XK1BYHSzE 88ooRBuuJ7DE4qLYJ5AUSA ZSZQTYW3HLP2xkJS9UMpoV 2VybiAv VtvzvAWnTM62NZu1EZZ5nX dwSHyofQ9akFTnY2f1MwKk YG19hW57TTkqNOZwCdK8Jq ZpbjsgbWFy R2xvDeIpsZBfEht+PHRhYm xlIHdpZHRoPScxMDAlJyBz vLdrRQ8fUt4yNROsMSPxgK xhcHNlOiBj n6ewYHMlFPqkDO5isKhrY6 FnuJI3GXLds4d4Xp52wKR+ TPYkFFE6hKifXUwfw377Vw Zfe2wkBLN1 aRAwWBvoPSX2Q12gs8S1ES ShFASiNRR3oZH0aW1mwJgm bbesM2JewAXbPpJ5SWI0eD OmjD8zaYkf lwuesH5hSce+S13EMW0NHD RDHI3OUms9N7VgCdjpmLR+ GT73UTUcQM10qIKacWTtu1 ildNl9HaHo SGThQHH9iQttTYoku5NrCZ MxX47rhJTov0L3DRQpeJqn zTUwTsHfvPY6kZ7oYTvxlb wjt9wwstly Rulji9ftkc02dO52W80nVZ qlOHDoXRE6HTYoLQUucLgt cp1fiA6pWh9+AEcyf8tby4 banKl5RiSw ODDjboXqkDnxAZA9d7AaYx 04S2YkmKwqf7SjXan2vo43 aYUxf5A1sNL4YFfxOFDqpL 4sRRurDuX8 YXSyZgMexK47jWQiULupPy 8smGcfqDnsMJ3fWXHbqgwq LCKwrI9hLZNliQGdzIkzGA 4wNTBpbjtm j767DkQaXSY5BMPjxDMwE0 JguS5gTlFlJEKdIYRuU6Sg qMIbMOggT445TGsqVcQ5PF YafzVjF9Sm YSZedYxlItT2c0Z3Te0Vs0 KnljwsPTJ2NXxgBQTpTrJx RcEzVcE2Q1DkGtm7ZJFtiZ mwJS4vY4Yo UJKpusdoxxnvkQT7NGVpBK LvlT11fQNpWQtsHk1fi3C9 m362QTAiABLkeZ97Cn7caO ogMTBwdCBU tN5jxpoxq9kgpiviExHdEA RbGFx6CUa8QUMmkFzhWlMt SNG5FnS2CCD6lFHaaH0vhE kswpcadJ7u Oyc+U15nlW1dPOX4IYJ3it yuKUVekvBpQD77RG07V2Xq PjwvdGFibGU+PGRpdiBzdH hvKJ9vYeMf z7kfb6IeFTgiD0ElCJDcIS epKfg4FFLbYYY1jEW3iC5l YRFeLNvnt7B7iXE0N3Ifsm Zexx3ty7jc GLMhAVydI07kjQKfw6A4PI UehAI2QNJigMfkFfKepO73 Oyc+SLYjmLkxd1KxZgder0 vzq7jhkIz0 TyJsCTPqtgUftAzxNBN7m8 CwLw50B97iGOhmXQMaAVXp IDKoLGElvGgjdj8zyG0iIc 8+PGNvbCB3 zHI3fH0iLIEoZuF9VHiiG7 13DkDirRCyTewka3jql1ym eMf4BaNtURKvgzOhfTrsZZ L1v2PkAt94 H44nEOlhYCXtPTYdXSSmEQ NgrKynws0yiF2fIu2+PC9j a5jdzi88dI28yXE+PHRkIH S5aOydGNcr WASnqG6nUKnaNlK7RCXwNy RadM35aGLhZTsdVy7szKov uWrlXL8zSJWfresyt466Lw Jlp6obEUVp oDKmSLnuVXR0B21bn4I5MX NuTGBgSNO8xSG7zB0puQvc bjogbGVmdDsgdmVydGljYW xbCQkcH087 IHRvcDsnPlBhdGllbnQgTm MzOCe4E4AwEui4ODVokWxo ML2tfYJoBKkeKb1zuXkceD prRE2zTIJa ioyos696JzXav7zeSVDayR FmDWqtAIG9K00uu9X3YRSc KEXcXQT4wJC9hS6xsCdfpx ogbGVmdDsg wqYacSbrFMveUYnfI486QR RvcDsnPkJpcnRoIERhdGU6 HE41SL52wTUzk1O3rRP5R4 BhZGRpbmct tnivuMO1GVAhHHFoaY78Fb 6lyZsaUo8wEXLbARM0WIFm yFWrA7YpqQ0rYvTmVCWlFB BpG4TsiRUq SQueN530UOzpIoY4USMezo HqI8NgRVDqqNyqXnI1h1L6 Ab6CY4K5GY70PE87mIZvq9 Z5gTZ3T7Jt ZBXboduyruamoAG8QPKpBD MizC06Tf1kvJxmUq4bTLMs WBU9UBXauKXqD4EnrV2cMa AjMDAwMDAw F8IplUHoTReiP508XYtqAu M0HZXevnYkQ8HiPXNrhXgj GzT5q8W9Wi5EZZw3JH90BJ 09kSUhc9Z2 qWV7C7OoODWamcbvfphguI R8JNTvQCTszS18Tz5jnWre Im5hVTBcQYQ8BEYnuMJcU9 CaxF6yLmRh TYXgQFIvW4XchPMsXNesF1 86LVojWpR7WYJvbaXqO5Ds BSWtxOquUeE6l2B9Ou2JYH LsQX81BXJ2 iFV6VS87YA44X7QrZzsysI FibGU+PHRhYmxlIHdpZHRo HKqiOFIiOzZdmXtpYT4bJu 9yZGVyLWNv hOqhwICeKmMgy2ktLYBnQA huDQ9gvNyqG8SujGB1HPBg t0x9Ar98O39fK1AgcRQ+PG WdsUM0iVU9 gG9hBlYgOaK2TRqsZ922Ve EujHZrHpiue3mwv3uyzGw2 ZlO6CWEizeBrqAriPGG1n3 EiCs67W17o IHdpZHRoPSIxNSUiIHZhbG snoj2iwE0xMa2+PGNvbCB3 qIH0oD2yYpDjCuC4RUyeW6 49InRvcCIv Pxiod6ujc7afkGh6ScViMQ FowyQjtAwbMUC0h9GoYs38 V9JkfPivy3AbXed9xt54vN Dcv0V6yVG0 J5PdKPXpfjvleURgsEvlOO 4zZBAiggxzTLEtiW8tIJSj D1b3OrTnQbP9DCujI7Tvxy V4XPUpvSCb SIrbBPB6U57rz5E2WIVaZM QjRQQ7gBK3qL7fmZodipys bGVmdDsgdmVydGljYWwtYW vtP845OLRh nRdqIZEjuP6eAOUwkNRjlO zoSX7lOKToqixgAlKOHmuK VkPbJNEBRl0MIJ30HW51gC Vft0P3kJR7 D6KkGYUxzntjhhmetLO2TS ApLWVbpK16aNZbHLimLb7z u3Q5n195MAAoURRcaQ45Yg 9udDogMTBw gZVOmG9eibdfm7qiargsRc PxAISlBJz0ADg4WPGbpHbd EtSsSFP1PwL7OJU9hRTmtQ 1hbGlnbjog tT6qXou+YWiiOUYlVUy5RP wvdGQ+MWDlSBE0lGquHRnv CMEnfJ1fNQKoN3c6VqVaFa L3UOrdI7Zb DPNyhjtzIp26eC2mBsEhGf L1SMkrL4LquuH0IEWspGSh MIgoYKI4I10yy9F0NXAqRX GeHJR8wZB7 fB8egIqricgglRKbaFprzc BdfGjsSCodNOcoS407XGZc wYlhOkgmEXjuMNSqON23YE 00hDUiw4Q0 tBR4F3FvPPFsnmemgzhxaB W4VHIgENKnvI07sFFkBJkp Of6qx7C4l315PHUtEWUsyZ 65Tl9kjQby SWRcvLYNjK1fprdjt7yuxn tlYtBsKRBhMMa0WUn0WLRd eJxlSrBvSIX3JsD1XFH7vJ VwvV1hzInm fmixxP8aKkg+TWFsZTwvdG Q+QVDyJOG3eNozFQuxDXOq hB7dBBYeW5q4PiRaBlF1FI txQ9XjJAYv rrlwEo91tU9zCzZqJjM0IU tcC5PrawI8FITwfCXwUEzl UVJ0S18gy3W5NNNlDPQbNO M7rRF2tM6u bGlnbjogbGVmdDsgdmVydG vjPQwvJMsoI306WUMwtGub Jm76vATkvQelmcJ3S4JiWz wvdHI+PC90 GOHwJN01cZKarITjs0oqgB e3AzDqGGJhQVJ9aUnpOAgn y6DeDDSsF09dwVKzx3M1KU NvbGxhcHNl TeUyvOO6lG7iOTizlvxjy8 ycitffZssod9dwtw09vH95 O23gUEwtHSLnRFJmEUOcLN QwzWlfoe0q nR9xGj6+RSNkmTM3tAG1kB 8qEsTyXvI2CYueS753GwYs fDAuWpvpv7cdd0gniVa3Lo IwJSIgdmFs vDliIAT1d6BwZi16M41mZA dpZHRoPSIyMCUiIHZhbGln zd5pvN5wTt1+JW1gi1goti 97fD21vIG+ WYJtMVJ3xNrwARrrVRFfhH 5lMIjiDlX6CTQuCjBsrM47 yQOuPIrdPw2ylEtjrGgtXF 4wNTBpbjtm s531ZkSku7eyWACaxGTyUX pwSLC3X76nx1Z3XIOpYVQd LNQ0pZY1oZ3etFjxitmbfT VmdDsgdmVy tAwgDDmuBTikT437KWCcdK yxCvUkdXOhE2abltDDBV1e OjwvdGQ+DZHuEWU1iMnrNK xiEIUqeK5l XTVeR2j5HcUzQrW6FYtbQ6 NksvC8GQAdhNHwGRXqrOIW bU9iagdvj9ajkkrmCpPwTE LoYVp7SOm5 REMtlIcnDwVwQMW7FwJ5RQ L9nCWdkD8tvVlmldtivH9x Oyc+RklOOjwvdGQ+PHRkIH K4eArfGDez TQEvmX9cVGHgT5i0IwNvUx A4HUcdR3NaswV8KNLemWYt UNIpuUNVlP5vuolrq8yzjg ogIzAwMDAw DKp2IGw1ZUAksErlJpVtSW D6WlG1EZG0zQFxjJ6ohFwt haydxB6qMnp+TVJOOjwvdG Q+PHRkIHN0 kQupTCpbVANfaV7lMHAzI6 z1RpVhSgG3KMsbM9KhpbS5 GVZmoHQsDGKcdTXPaY2hpz oor3csveiw CzZrWKStTHf0BWd2JIQanH adDpArOXP5AiL3SAE6vWKk fX4pgFfnnrccqE2jRnv+UG O9QTM2NB94 RL80U5NuPxdeaYAzsQA+PH RhYmxlIHdpZHRoPScxMDAl YyDjfSglMK7dMc2pLCFkPY NvbGxhcHNl OiBj (more content not included)... Normal [facility] XR Chest 2 Viewson XR Chest 2 [...] MD Transcribed by: SENA Technologist: WILFRIDO Normal [facility] Auto Diffon 05-12-2021 Basophils/100 WBC (Bld) 0.4 % Normal 0.0-2.0 [facility] Comment on above: Order Comment: Order Added by Discern Expert. Performed By: #### 1 [id number], 4175818, 1457371, 6262166, [id number] ####[facility] [address] [place] [address] Basophils/Leukocytes Auto (Bld) [Pure # fraction] 0.0 E9/L Normal 0.0-0.2 [facility] Comment on above: Order Comment: Order Added by Discern Expert. Performed By: #### 1 [id number], 3258490, 6233332, 3689889, 35897892 ####[facility] [address] [place] [address] Eosinophils/100 WBC (Bld) 0.2 % Normal 0.0-8.0 [facility] Comment on above: Order Comment: Order Added by Discern Expert. Performed By: #### 1 [id number], 3501414, 9896012, 9233033, [id number] ####[facility] [address] [place] [address] Eosinophils/Leukocyte s Auto (Bld) [Pure # fraction] 0.0 E9/L Normal 0.0-0.5 [facility] Comment on above: Order Comment: Order Added by Discern Expert. Performed By: #### 1 0886946, 1149711, 0376254, 7353605, 40834442 ####[address] [place] [address] Lymphocytes/100 WBC (Bld) 15.1 % Normal 14.0-50.0 [facility] Comment on above: Order Comment: Order Added by Discern Expert. Performed By: #### 1 8920745, 7471631, 2864002, 7326287, 26375630 ####[address] [place] [address] Lymphocytes/Leukocyte s Auto (Bld) [Pure # fraction] 1.8 E9/L Normal 1.0-4.0 [facility] Comment on above: Order Comment: Order Added by Emma Expert. Performed By: #### 1 7502425, 6632438, 9385793, 7403334, 11406344 ####[address] [address] Monocytes/100 WBC (Bld) 11.7 % Normal 4.0-14.0 [facility] Comment on above: Order Comment: Order Added by Emma Expert. Performed By: #### 1 6785167, 6565341, 0370038, 1624689, 69341486 ####[address] [place] [address] Monocytes/Leukocytes Auto (Bld) [Pure # fraction] 1.4 E9/L High 0.2-1.0 [facility] Comment on above: Order Comment: Order Added by Emma Expert. Performed By: #### 1 6972057, 0457570, 3946488, 5391709, 14002419 ####[address] [place] [address] Neutrophils/100 WBC (Bld) 72.6 % Normal 36.0-75.0 [facility] Comment on above: Order Comment: Order Added by Emma Expert. Performed By: #### 1 1197502, 6606202, 2516433, 5289626, 46594865 ####[facility] [address] [place] [address] Neutrophils/Leukocyte s Auto (Bld) [Pure # fraction] 8.8 E9/L High 2.0-7.5 [facility] Comment on above: Order Comment: Order Added by Discern Expert. Performed By: #### 1 6426681, 6982620, 9114113, 7376165, 17048284 ####[facility] [address] [place] [address] BMPon 05-12-2021 Anion gap [Moles/Vol] 12 mmol/L Normal 6-16 [facility] Comment on above: Performed By: #### 1 1614859, 6590406, 0474559, 3747297, 89694678 ####[facility] [address] [place] [address] Calcium [Mass/Vol] 9.0 mg/dL Normal 8.9-11.1 [facility] Comment on above: Performed By: #### 1 3996506, 8496465, 6693234, 2509829, 47462135 ####[facility] [address] [place] [address] Chloride [Moles/Vol] 101 mmol/L Normal 101-111 [facility] Comment on above: Performed By: #### 1 1497078, 6014023, 2711258, 3149142, 75795897 ####[facility] [address] [place] [address] CO2 [Moles/Vol] 27 mmol/L Normal 21-31 [facility] Comment on above: Performed By: #### 1 2666010, 4406984, 6258433, 5036770, 20154234 ####[facility] [address] [place] [address] Creatinine [Mass/Vol] 0.9 mg/dL Normal 0.5-1.3 [facility] Comment on above: Performed By: #### 1 1095882, 3818455, 9119343, 9476803, 22180634 ####[facility] [address] [place] [address] Glucose [Mass/Vol] 140 mg/dL Normal 55-199 [facility] Comment on above: Result Comment: If t his glucose result represents a fasting glucose, interpretation should refer to the following reference range: 55-99 mg/dL Performed By: #### 1 7850831, 1765165, 1247121, 0176287, 04669246 ####[facility] [address] [place] [address] Potassium [Moles/Vol] 3.8 mmol/L Normal 3.5-5.3 [facility] Comment on above: Performed By: #### 1 7342599, 9533571, 6082805, 2787913, 84157701 ####[facility] [address] [place] [address] Sodium [Moles/Vol] 136 mmol/L Normal 135-145 [facility] Comment on above: Performed By: #### 1 1120541, 6502869, 5049840, 9190532, 52486485 ####[facility] [address] [place] [address] Urea nitrogen [Mass/Vol] 13 mg/dL Normal 5-21 [facility] Comment on above: Performed By: #### 1 7263671, 6319410, 2194290, 7501383, 36698437 ####[facility] [address] [place] [address] Urea nitrogen/Creatinine [Mass ratio] 14 No Units Normal 10-20 [facility] Comment on above: Performed By: #### 1 0918945, 8747053, 4374689, 0412764, 18765205 ####[facility] [address] [place] [address] CBC w/ Auto Diffon 2 Erythrocyte distribution width (RBC) [Ratio] 13.3 % Normal 10.9-14.2 [facility] Comment on above: Performed By: #### 1 3007260, 1161289, 2234477, 7332468, 52013706 ####[facility] [address] [place] [address] Hematocrit (Bld) [Volume fraction] 31.7 % Low 37.7-49.0 [facility] Comment on above: Performed By: #### 1 7329963, 1158809, 9263878, 5429166, 18897159 ####[address] [place] [address] Hemoglobin (Bld) [Mass/Vol] 11.1 g/dL Low 13.5-17.5 [facility] Comment on above: Performed By: #### 1 5934228, 0763727, 3011872, 5752378, 96390650 ####[address] [address] MCH (RBC) [Entitic mass] 29.9 pg Normal 27.0-34.0 [facility] Comment on above: Performed By: #### 1 0747166, 1947716, 9696851, 7437123, 19798685 ####[address] [address] MCHC (RBC) [Mass/Vol] 34.9 g/dL Normal 31.4-36.0 [facility] Comment on above: Performed By: #### 1 0249818, 8254761, 7897652, 1614843, 40203820 ####[address] [address] MCV (RBC) [Entitic vol] 85.5 fL Normal 80.0-100.0 [facility] Comment on above: Performed By: #### 1 5255678, 4508621, 8351544, 4184832, 90163805 ####[address] [address] Platelet mean volume (Bld) [Entitic vol] 7.5 fL Normal 6.4-10.8 [facility] Comment on above: Performed By: #### 1 2866230, 5557253, 7142574, 7373620, 46578242 ####[facility] [address] [place] [address] Platelets (Bld) [#/Vol] 295.0 E9/L Normal 150.0-500.0 [facility] Comment on above: Performed By: #### 1 4201224, 2939768, 0847402, 5532375, 34543827 ####[facility] [address] [place] [address] RBC (Bld) [#/Vol] 3.7 E12/L Low 4.3-5.9 [facility] Comment on above: Performed By: #### 1 9944610, 5741609, 4832952, 6917236, 04230994 ####[facility] [address] [place] [address] WBC corrected for nucl RBC Auto (Bld) [#/Vol] 12.2 E9/L High 4.0-11.0 [facility] Comment on above: Performed By: #### 1 6621733, 5946709, 3742922, 8458820, 37530795 ####[facility] [address] [place] [address] CHEMISTRYOrdered By: SYSTEM SYSTEM on 05-12-2021 Anion gap [Moles/Vol] 12 mmol/L Normal 6 - 16 mEq/L [facility] Remisol Calcium [Mass/Vol] 9.0 mg/dL Normal 8.9 [...] rate/Area] mL/min/1.73 m2 Normal >=59mL/min/1. 73 m2 [facility] Chem S Glucose [Mass/Vol] 140 mg/dL Normal [...] 31.1 s Normal 25.1 - 36.5 second(s) [facility] Auto Coag INR Coag (PPP) [Relative time] 1.2 {INR} Invalid Interpretation Code [facility] Auto Coag PT Coag (PPP) [Time] 14.9 s High 10.2 - 12.9 second(s) [facility] Auto Coag Consent for Treatmenton 04-15 Consent for Treatment [id number]#1.0 0CD:127 Normal [facility] HEMATOLOGYOrdered By: SYSTEM SYSTEM on 05-12-2021 Basophils/100 [...] Coag (PPP) [Time] 31.1 second(s) Normal 25.1-36.5 [facility] Comment on above: Result Comment: Hepa rin therapeutic range (represented by Anti-Factor Xa activity of 0.2 - 0.4 U/mL) corresponds to PTT of 56.6 - 109.0 sec. Performed By: #### 1 8467587, 5594303, 4810011, 9655500, 31660067 ####[facility] [address] [place] [address] INR Coag (PPP) [Relative time] 1.2 {INR} Invalid Interpretation Code [facility] Comment on above: Result Comment: INR results are specifically intended to assess patients stabilized on long-term Anticoagulation therapy suggested INR?s ?Less Intensive Anticoagulation? 2.0 ? 3.0 Conventional Range 3.0 ? 4.5 Performed By: #### 1 1773634, 3797701, 2026517, 1010173, 92197420 ####[facility] [address] [place] [address] PT Coag (PPP) [Time] 14.9 second(s) High 10.2-12.9 [facility] Comment on above: Performed By: #### 1 8070255, 6471696, 9642773, 2837529, 93474701 ####[facility] [address] [place] [address] eGFRon 05-12-2021 GFR/1.73 sq M.predicted among blacks MDRD (S/P/Bld) [Vol rate/Area] mL/min/{1.73_m2} Normal >=59 [facility] Comment on above: Order Comment: Order added by Discern Expert. Result Comment: eGFR is race adjusted. AA=. Performed By: #### 1 1206108, 0145506, 4226419, 0050759, 38946980 ####[facility] [address] [place] [address] GFR/1.73 sq M.predicted among non-blacks MDRD (S/P/Bld) [Vol rate/Area] mL/min/{1.73_m2} Normal >=59 [facility] Comment on above: Order Comment: Order added by Discern Expert. Result Comment: Utility Operator theron kidney disease could be indicated at eGFR's of less than 60 mL/min/1.73m2. Kidney failure is indicated at less than 15 mL/min/1.73m2. Performed By: #### 1 9144425, 1626474, 7309786, 9439181, 01516554 ####[facility] [address] [place] [address] Ambulatory Visit Summaryon 0 04-28-2021 Ambulatory Visit [...] [facility] [address], [place] [address]- Medications What How Much When Instructions Unchanged [...] influenza virus vaccine, inactivated (Fluad Quadrivalent PF [id number]) Intramuscular Once Contact prescribing physician if questions [...] body store (more content not included)... Normal [facility] Patient Educationon 04-29-19 Patient Education Nutrition Calorie [...] You could (more content not included)... Normal [facility] Urology Office/Clinic Noteon 04-28-2021 Urology Office/Clinic Note [...] bedtime), # 30 cap(s), Refills(s) 6, Pharmacy: [address], 181, cm, 04/28/21 12:55:00 EDT, Height/Length Dosing, 115, kg, 04/28/21 12:55:00 EDT, Weight Dosing Efrem (more content not included)... Normal [facility] Comment on above: Result Comment: Elec tronically [...] Charlie Farmer MD 04/10/21 Final result Normal [facility] Coding Summary.on 04-06-2021 Coding Summary. CD:[id number] Gh 0bWw+PGhlYWQ+YD9NYEXqQ 66elWKqjQ2HP1cETC0BAXA SWGDHUO9YSS4mrHH2IMimT 2VybiAv ZrkriDOjDU67LKr8JVC8pW tuUXwamY3slBMyF2m6JuUx JA37yS85FDcdHVYvAmD3Of ZpbjsgbWFy Q6cdHaDljQSyUzy+PHRhYm xlIHdpZHRoPScxMDAlJyBz bZgbJD5tUd0kHXOzCQRssV xhcHNlOiBj n7cxRDTkHWztNW4mlRgfN7 OmvQH2XFRxj8g7Cc33fTE+ FZMuZYN2lEpnPAqqw502Ha Kzm4hwNTT9 tMTaAJeeBOW6U71za7P2UW UdYMNvAKK2kGD5jW9uqKjx xeubN0PjoERvRdT3MXT7jI HgpJ3bjNio hyvbfK8tOub+O93RYW2XEV FAHH4RRpm9V6HvMfrtpFL+ BE12IIUdEC64bCLubTRwl9 vdwIb4IzXz YYUmAHS5eVgbTExjd2GvBS DoD22bsJLmv6Z3OYHaePcr tLNaUhPxqCQ2lV7rCNzyjr ejt4pnbnjr Wvgjk4kejc35yM08D25rTX ipYWUcFSV9DVVxOUKznArl pn7buK3gQj0+ERgsu6rsq0 sbaIp4BnNa VBAlqrPlkUqzROL8n4ToOn 33S3RmcPsmq7HrKkh2un95 nTZpp4G1wMY4EPigDMKcdK 7qQVkbDfJ1 UGSgAgLfkU19pGBbTIrzYm 4diSoqwGsrVO8eWEJjcynm PKRefD6cBLMkpWTayOxbIE 4wNTBpbjtm b960NtYwVPD4LUTqtDCgV3 NhfC2zIiHdTFTfPCSwR3Pi lWBcKKpuT340ZBksChG7FO UsgpItF1Pm TJXanYscWxW7i6J5Vj3Wy7 CwxowiSSS9TXxsYBIhYyYu GmXnLwF4V5AcThk2MIPklR dwEX4nE7Ao RSVhjxxhhvhehAE5YJUxOC UzkK16nJTfVRbhLj6zl1S5 o905VUDeYCPdkE79Vz0kdM ogMTBwdCBU aQ2ukblzm3czrivdLgPxFG KcFDs2WIl6PSQudSbzAhPu VGP8VbR9MCC9zSBzqL8vuL dwixwfnV1s Oyc+A54neL6sOQG2IEU1dy nbWGJkxrEoFT39VG11Z7Sm PjwvdGFibGU+PGRpdiBzdH qgOP5eXjSi i0pon0AbTCkaH2YaUEFwDU ewFsl6ZNHaTEH8vEA9hI5i FTJtOGtip0M0wGV1G7Luus Ynnk4ou5nl GMXqFCloQ98vaIWct2C9BR KdgZQ8NQAquVfeFxBwqK71 Oyc+WFRwcJsbs5VtSdkrg5 qeo4fszRl3 YzLjYJAuttKwnTseGHR1o8 HtMb42Y73dFKhzLKOlUPJx SYXmYPCmrKmjaf7juZ3vDe 8+PGNvbCB3 zDA0lP8uBDQfUvR3SJmoE9 77RkWrfNCdPloig2xak9af mZf4PmKaUELrwiWibKptFN Y0f6KlCm27 K59hPUizTBGcNPJaMOHsIY AxmLczkj4qsF3sIp8+PC9j j4xoxr61hR84yOA+PHRkIH W6mUieYGfd KXIraX1oURbuByQ6IHLpNx CqzI46lRXcTXpyTc1axWpe qZjmRT4uXHJherwve902Dz Wfi3hgOVXj yRAzDDdcPVO0D25cj6S8ZZ CnLQBbUKR0dVL1kS1ugGjn bjogbGVmdDsgdmVydGljYW xuCUlzA923 IHRvcDsnPlBhdGllbnQgTm KvUZn3W0QtHja5UEByqVie RH7xiKLmGJukFs0ioAuvhD djPK3aRWXc tscks413OnCyt8vtUVPsxR HkKPknKWM5D68cn5L4JQPp QWUyUEM6mYP7vH2yzLiknn ogbGVmdDsg lfHwuOfvMMycJRgvA842AV RvcDsnPkJpcnRoIERhdGU6 HE21IW15iIFcf9R2rRQ4O4 BhZGRpbmct zrhitXZ5NNCgXJTbvK50Cy 8wiJmuOj0rHOIzWFI7VNTk xODpQ0IliN4gWlDiSFRmGP XdS6OclKVk ACdeM542INcaQuE6EBWoub XsG9EjRKAyrDbeTuS4h6A5 Ah1BJ3Z7XF30FA09bTRuo7 F8hBL3Q7Am CFDcsobjtxpcvCI1TJLuRV MijP75To5mjPveNk5pONGo XRU9ZACxbTKlR2WzcF0dRu AjMDAwMDAw W4HhoOVqVPsiR026RKnpVv S5DNCqfwUfB5ZxLHHddPbv RqV1s8D0Pd9NUHo2CK49SD 22gFZmm9X1 wRT1L1DaOMObhmdcyrvcvX N1VUJjHMPewI77Lq0hkOiz Ys3tRTCsIKU7LVQljFDzK3 OqvB5yAvNf JXMrYQOmZ0HxkHAqVZxfB6 57ZZndRnM2RIDliwKfV4Cc AUWyyTrdXuX5o0T5Po1TIW ByJD15UHN8 iNA9PR27JU37Z2DeIaveuX FibGU+PHRhYmxlIHdpZHRo RRusDNUoZcHimVgkXT0iEn 9yZGVyLWNv dTxmnZWtJqFhn8hgJCSxZY qlBL3xrVdyL9AvyCZ5ICTl i5x4Tb70Z93wW6YpiPF+PG OcnQR8hEU2 hK7bLiWuEwI5UAqpY694Xj CwaSGqRdkxl7wzb3gboEk0 GfL3YBQsedCaqRewNWG8g3 YqYa01L21g IHdpZHRoPSIxNSUiIHZhbG xsdq2lmP4dXr1+PGNvbCB3 rXJ4wC4qPvEwNpZ9PHxdJ9 49InRvcCIv Lxuwl0ozj4xesRp6YcLaTP LbtoZcoAqaLSZ9b6ZgXx86 K5AhkQpki5LaPgg4mz14fI Gic3K7kHJ2 N8ErTKBwbukhaIOqtTjcJL 7rSGEvvyyhTZNbeW2jXHXn O8o4UgUoNvO0BJpuP1Etjg P0QPHfeLBg TRumOJT4V42zo6O2LKNvSV IzFFG2rYS1aQ2mfAmsyaqm bGVmdDsgdmVydGljYWwtYW njL162ZBEj tObyCQYinO6wCXZzzSUjpZ asSZ5sWDLjegggZvHUFjsT PyKqHDDYQz3FZX76CC53vT Ahp8K9gBX3 M4PvDFSnuojbeugfkBE9DV JuELFplB82wVMzZEzmBz5r a6D6t742THRqQWWnbL04Sj 9udDogMTBw dGIXyG1vvoviq2tjvnufVp XlWPLkSOs0CJl9TTWnfYul QwGePXH4CoK1WVS6mQMtiC 1hbGlnbjog bA0rLhj+NYnpJLDvBWe7BP wvdGQ+XYBwNTV4wTtbPMqw YSVmfT9lKDCfC6b8LsUkRc V0USdkY4Gz QVNlliiaWo23mP0cRuNfBb C6HSiiO4HfktB4BJRasMHw JSknQZN9K04gx9R4UIHhEW IbOZX9tKY5 fJ4dwUxydkhjuHZdpPzihv UwlIukZZlsPXmcV113GCSv cUyjNlsoGEvhIHNvDG74TV 61kVVnz9L4 iOF9Y7UnUDOiaqfwvoqrmC M6ILIqFUAkqZ95dXTiBGyv Zr0ic7N1f506DXNdVKPwxG 07Yz5toLya KUXlkREImU1brmgsu5aqqw izGjEhHWJrRLz7QRk3PRFj zHydQtLvZFK3MhW6UDY8gN VajP0ewNpy jyvqkI5uQjr+TWFsZTwvdG Q+OYSvEPO6kBnnQLaqFLKq yM9bVDUnL4s0BmGhOpW4UY wtA2PwZGHw mpbuSe87nS1eHlLeReG5KX yuW9QeqhY9JNCqrXFwRGzx FKA9A96rc4Y4HGXzVUEvCV T9bTN2rO2b bGlnbjogbGVmdDsgdmVydG tcTVqzTAluC424ZFHqyDna Bf11aNDhfBougzO4T9YcJg wvdHI+PC90 WMUaZM01lNEjvRNbl2yfsO m6IiZfHNRbXSH0ySzxYUgo y3EdYTKaT49wzEAse6K4AT NvbGxhcHNl GgEosLB5iN3uKQbfrpten0 tjbkvqQqfcl4vljc95tU40 V43jGJctOQBlNPQrIVDkVR BboAjdfj2v oT9hQc4+OFXiqVC5wMG3iC 2bIgVnLaE6WUahR746EvOn sYIgRgdkr1nus7ziiVx7Ty IwJSIgdmFs zRugSBJ3m2CsMw03H53bES dpZHRoPSIyMCUiIHZhbGln fk3ucD7iEq7+VK5vc6tbjb 20oN75yJK+ NVGaEZC1kIrhORzgURFjtO 3tEYhsLiH6ZTMoDnBfrO94 jJKkQTagJe2vdYujxJeaEX 4wNTBpbjtm h072MrMyd2sdARLrvEAnYR vdXTB4P76cd4N0BLBrTHGg XFI1aRC9dX6xhIatqumneU VmdDsgdmVy sQotINidAFnyT139XUIzfJ rsHlBygXZzW0rmtkMIEB5w OjwvdGQ+ZQOfRTO7oQsxOM srZZGwfA5y WAMkV7z4AyRhZoS0XLviC7 BgjnZ1KUBjaSXrMEHduYNJ vY8hsffoz0ypqeweUwPiBM KsNVe4AJe7 GAOzeMqqQjNyBRC0AmE5HR A2zNZcrE4eiSfvjazqkK9k Oyc+RklOOjwvdGQ+PHRkIH I4lQwrLVoh EPMvfG6aJWWzH3v3PxSxWz S6AZzuA6GtljM9WDTgqDKk AVLozHOAnQ7iijqwb9igjt ogIzAwMDAw YCx1RXn4QETikFwgJkImHV G8GoK9YTJ4cPFjjZ0taWcv brvylD1wRdn+TVJOOjwvdG Q+PHRkIHN0 eHhvEQsfIODebL9pQMZeT8 l4GyKmVmY7AMcqT4ZjboK4 XXBgiPOhIGGnyVGJxE0tpv aye5fgxohs YlXyFOTiAPv1RKh7QAIanC ttLvClDWB5XjU1FEC1hPSi nR6rkYrliwfjuP8eWme+UG G1BLJ7AP46 TA08U3MrMdwjrAPjfXP+PH RhYmxlIHdpZHRoPScxMDAl XuRzxJrdIL0aAn3mTZLeOX NvbGxhcHNl OiBj (more content not included)... Normal [facility] Consent for Procedure/Surger yon 04-06-2021 Consent for Procedure/Surgery [id number]#1. 00CD:127 Normal [facility] IntraOperative Documentson 0 04-06-2021 IntraOperative Documents [id number]. 00CD:127 [facility] Consent for Treatmenton 03-17 Consent for Treatment [id number] 0CD:127 [facility] Main OR Intraoperative Recor don 04-02-2021 Main OR Intraoperative Record IntraOp Document Type FTURO Summary Primary Physician: Cintia Alves Jr., MD Finalized Date/Time: 04/02/21 08:45:09 Pt. Name: KYLIE RUEDA/Sex: 1950 Male Med Rec #: [id number] Physician: Cintia Alves Jr., MD Financial #: [id number] Pt. Type: O Room/Bed: / Admit/Disch: 04/02/21 [...] [place] CST Role Performed Surgeon - Primary Nursing Program Coordinator - Primary Scrub - Primary Time In [...] MIKE Lira RN, Ruthann 04/02/21 08:45 Normal [facility] Main OR Preoperative Recordo n 04-02-2021 Main OR Preoperative Record Holding Area Document Type FTURO Summary Primary Physician: Cintia Alves Jr., MD Finalized Date/Time: 04/02/21 08:26:32 Pt. Name: KYLIE RUEDA/Sex: 1950 Male Med Rec #: [id number] Physician: Cintia Alves Jr., MD Financial #: [id number] Pt. 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 Normal [facility] Comment on above: Result Comment: Elec tronically [...] urine. The Urethra was dilated to: 24 Hebrew w/ sounds. Devices Implanted: None. Removal: Cystoscope is removed, The patient tolerated it well. Postoperative Information Discharge: Patient is discharged home with antibiotic coverage, Follow up arranged, This patient was started on a trial of tamsulosin 0.4 mg daily. A new prescription was sent to the pharmacy. We will plan follow-up with PVR in the office in 1 month.. [facility] Comment on above: Result Comment: Elec tronically Signed By: Cintia Alves Jr., MD\.br\Date and Time Signed: 04/02/21 08:52 EST [employer] 02-24-2021 Forms [id number] 0CD:127 Normal [facility] Patient Educationon 02-24-19 Patient Education BMI for [...] height. This can be done either in [place] or metric measurements. Note that charts are available to help you find your BMI quickly and easily without having to do these calculations yourself. To calculate your BMI in [place] measurements, your health care provider will: [...] problems. ? BMI can be measured using [place] measurements or metric measurements. ? To interpret [...] 10/12/2004 Document Revised: 01/13/2018 Document Reviewed: 12/14/2017 [employer] [place] Patient Education ? 2020 [employer]. Nutrition BMI for Adults Body mass index [...] height. This can be done either in [place] ([place] or metric measurements. Note that charts are available to help you find your BMI quickly and easily without having to do these calculations yourself. To calculate your BMI in [place] measurements, your health care provider will: [...] inches sq (more content not included)... Normal [facility] Urology Office/Clinic Noteon 02-24-2021 Urology Office/Clinic Note [...] day(s), # 2 tab(s), Refills(s) 0, Pharmacy: [facility], 02/24 (more content not included)... Normal [facility] Comment on above: Result Comment: Elec tronically Signed By: Shawn Allen MD, Cintia Hernandez\.br\Date and Time Signed: 02/24/21 12:54 EST\.br\Electronically Co-Signed By: Vanessa Herring MA\.br\Date and Time Co-Signed: 02/24/21 12:11 EST Basic Metabolic Panel w/ Ref gee to [facility] 12-04-2019 Anion gap [Moles/Vol] 7 mmol/L Low 9 - 17 mmol/L [place] Bun/Cre Ratio 12 [place] Calcium [Mass/Vol] 8.8 mg/dL 8.6 - 10. 4 mg/dL [place] Chloride [Moles/Vol] 100 mmol/L 98 - 10 7 mmol/L [place] CO2 [Moles/Vol] 28 mmol/L 20 - 31 mmol/L [place] Creatinine [Mass/Vol] 0.68 mg/dL Low 0.7 - 1.2 mg/dL [place] GFR >60 >60 mL/min [place] GFR Non- >60 >60 mL/min [place] GFR/1.73 sq M predicted among non-blacks MDRD (S/P/Bld) [Vol rate/Area] NOT REPORTED [place] GFR/1.73 sq M predicted among non-blacks MDRD (S/P/Bld) [Vol rate/Area] [place] Comment on above: Average GFR for 70 o r more years old: 75 mL/min/1.73sq m Chronic Kidney Disease: <60 mL/min/1.73sq m Kidney failure: <15 mL/min/1.73sq m eGFR calculated using average adult body mass. Additional eGFR calculator available at: http://www.[employer]/multiple_crcl_2012.htm Glucose [Mass/Vol] 120 mg/dL High 70 - 99 mg/dL [place], [place] Interpretation and review of laboratory results Abnormal [place] Potassium [Moles/Vol] 4.0 mmol/L 3.7 - 5.3 mmol/L [place] Sodium [Moles/Vol] 135 mmol/L 135 - 144 mmol/L [place] Urea nitrogen [Mass/Vol] 8 mg/dL 8 - 23 mg/dL [place] CBCon 12-04-2019 Erythrocyte distribution width (RBC) [Ratio] 12.1 % 11.8 - 14.4 % [place] Hematocrit (Bld) [Volume fraction] 33.1 % Low 40.7 - 50.3 % [place] Hemoglobin (Bld) [Mass/Vol] 10.9 g/dL Low 13 - 17 g/dL [place] Interpretation and review of laboratory results Abnormal [place] MCH (RBC) [Entitic mass] 29.5 pg 25.2 - 33.5 pg [place] MCHC (RBC) [Mass/Vol] 32.9 g/dL 28.4 - 34.8 g/dL [place] MCV (RBC) [Entitic vol] 89.5 fL 82.6 - 102.9 fL [place] Platelet mean volume (Bld) [Entitic vol] 8.7 fL 8.1 - 13.5 fL [place] Platelets (Bld) [#/Vol] 253 10*3/uL [place] RBC (Bld) [#/Vol] 3.70 10*6/uL Low 4.21 - 5.7 7 m/uL [place] WBC (Bld) [#/Vol] 7.9 10*3/uL [place] WBC (Bld) [#/Vol] 0.0 10*3/uL 0.0 per 10 0 WBC [place] Protime-INRon 12-04-2019 INR Coag (PPP) [Relative time] 1.1 {INR} [place] Comment on above: Non-therapeutic Range: INR = 0.9-1.2 Therapeutic Range: Moderate Anticoagulant Intensity: INR = 2.0-3.0 High Anticoagulant Intensity: INR = 2.5-3.5 PT Coag (PPP) [Time] 13.8 s [place] FLUORO FOR SURGICAL PROCEDUR ESon 12-03-2019 Radiology exam is complete. No Radiologist dictation. Please follow up with ordering provider. [place] XR LUMBAR SPINE (2-3 VIEWS)o n 12-03-2019 Yam[place], M[facility]pn Incoming Radiant Results From [facility] - 12/03/2019 8:59 AM EDT EXAMINATION: SPOT [...] See separate procedure report for more information. [facility] spot images as above. See separate procedure report for more information. [facility] EX[facility]INATION: SPOT FLUOROSCOPIC IMAGES 12/03/2019 8:39 [...] demonstrates pain pump catheter projecting over spine.. [facility] Cov[facility]-19 Ambulatoryon 2019 SARS-CoV-2, [place] Not Detected Not Detected [facility] [place] Comment on above: (NOTE) This nucleic acid amplification test was developed and its performance characteristics determined by [employer]. Nucleic acid amplification tests include PCR and [...] detected) result in this assay. Performed At: [facility] [address] [facility], [place] [id number] Carlos Young MD Ph:[phone] MRSA DNA Probe, Nasalon MRSA, DNA, Nasal NEGATIVE: MRSA DNA n ot detected by nucleic acid amplification. NEGATIVE: MRSA DNA not detected by nucleic acid amplificati [place], [place] Comment on above: Results should be used as an adjunct to nosocomial control efforts to identify patients needing enhanced precautions. The test is not intended to identify patients with staphylococcal infections. Results should not be used to guide or monitor treatment for MRSA infections. Specimen Description .NASAL SWAB [place] APTTon 11-19-2019 aPTT Coag (Bld) [Time] 26.3 s [place] Comment on above: IV Heparin Therapy Range: 62.0-94.0 Hemoglobin A1Con 11-19-2019 Glucose [Mass/Vol] 114 mg/dL [place], [place] Comment on above: The ADA and AACC rec ommend providing the estimated average glucose result to permit better patient understanding of their HBA1c result. HbA1c (Bld) [Mass fraction] 5.6 % 4 - 6 % [place] PTon 11-19-2019 INR Coag (PPP) [Relative time] 1.0 {INR} [place] Comment on above: Non-therapeutic Range: INR = 0.9-1.2 Therapeutic Range: Moderate Anticoagulant Intensity: INR = 2.0-3.0 High Anticoagulant Intensity: INR = 2.5-3.5 PT Coag (PPP) [Time] 12.7 s [place] URINALYSISon 11-19-2019 Bilirubin Urine Negative NEGATIVE [place] Color, UA YELLOW YELLOW [place] Glucose, Ur Negative NEGATIVE [place] Ketones Ql (U) Negative NEGATIVE [place] Leukocyte esterase Test strip Ql (U) Negative NEGATIVE [place] Nitrite, Urine Negative NEGATIVE [place] pH, UA 6.5 [place] Protein (U) [Mass/Vol] Negative NEGATIVE [place] Specific [place], UA 1.010 [place], [place] Turbidity UA CLEAR CLEAR [place] Urinalysis Comments Microscopic exam not performed based on chemical results unless requested in original order. [place] Urine Hgb Negative NEGATIVE [place] Urobilinogen, Urine Normal Normal [place] WRIST RIGHT 3 VWSon 03-09-19 19 WRIST RIGHT 3 VWS [facility] Department of Radiology [address] [place] [address] ======== Patient Name: KYLIE RUEDA [...] EVANS PA-C , Exam: WRIST RIGHT 3 [facility] ======== WRIST RIGHT 3 S 03/09/2018 12:54 [...] study Electronically signed by:Savannah Mark. Transcribed by: [email or web address], User Resident: Electronically Signed by: SAVANNAH MARK @ 03/09/2018 02:08 PM Normal [facility] Comment on above: Order Comment: , , = ========= , Ordering Provider - CARLOS EVANS PA-C , WRIST RIGHT 2 VWSon 01-27-20 18 WRIST RIGHT 2 VWS [facility] Department of Radiology [address] [place] [id number] ======== Patient Name: KYLIE RUEDA : [...] 01/26/2018 1:02 PM EST SIGNS AND SYMPTOMS: S52.540L Alves's fracture of right radius, init for [...] fracture Electronically signed by:Savannah Mark. Transcribed by: [email or web address], User Resident: Electronically Signed by: SAVANNAH MARK @ 01/26/2018 01:07 PM Normal [facility] Comment on above: Order Comment: , Yany ws (X-RAY, WRIST): PA, Lateral , Views (X-RAY, WRIST): PA, Lateral , , , Ordering Provider Kathie EVANS PA-C , WRIST RIGHT 3 [facility] 12-30-19 18 WRIST RIGHT 3 S [facility] Department of Radiology [address] [place] [id number] ======== Patient Name: KYLIE RUEDA : [...] EVANS PA-C , Exam: WRIST RIGHT 3 [facility] ======== WRIST RIGHT 3 [facility] 12/29/2017 12:53 PM EST SIGNS AND SYMPTOMS: [...] alignment Electronically signed by:Savannah Mark. Transcribed by: [email or web address], User Resident: Electronically Signed by: SAVANNAH MARK @ 12/29/2017 02:02 PM Normal [facility] Comment on above: Order Comment: , Yany ws (X-RAY, WRIST): PA, Lateral , Views (X-RAY, WRIST): PA, Lateral , , , Ordering Alisha - CARLOS EVANS PA-C , WRIST RIGHT 3 [facility] 12-02-19 18 WRIST RIGHT 3 [facility] Department of Radiology [address] [place] [id number] ======== Patient Name: KYLIE RUEDA : 1950 Sex: M Age: Race: White Pt. Location: Patient Status: O Ordered Date: 12/01/2017 10:20:00 AM Completed Date: 12/01/2017 10:20 AM Requesting Provider: HEMA VILCHIS Attending Provider: HEMA VILCHIS Report Copy To: JENNY CAST Signs & Symptoms: S52.574C Oth intartic fracture of lower end of [...] alignment Electronically signed by:Savannah Mark. Transcribed by: [email or web address], User Resident: Electronically Signed by: SAVANNAH MARK @ 12/01/2017 04:09 PM Normal [facility] Comment on above: Order Comment: , Vie ws (X-RAY, WRIST): Radiologic Protocol , Weight Bearing?: N , With or Without Brace/Cast/Collar: With , Views (X-RAY, WRIST): Radiologic Protocol , Weight Bearing?: N , With or Without Brace/Cast/Collar: With , , , Ordering Provider - HEMA VILCHIS PA-C , Operative Reporton 8 Operative Report MR#: [id number] S [facility] Pt. Name: Kylie Rueda Room #: 0C [...] any fracture hematoma as well as a [place]. Irrigation was then used. The fracture was [...] days. He was provided a prescription for [place] to be taken for pain. He may [...] Colón MD Date Trans: 11/18/2017 09:15 P/imanio [id number] cc: Jenny Cast M.D. [address] [facility] [address] Normal [facility] POC GLUCOSE LABon 11-18-2017 Glucose mass conc 118 mg/dL High 70-100 [facility] Comment on above: Performed By: #### 8 5499 #### [address] WRIST RIGHT 2 VWSon 11-19-19 18 WRIST RIGHT 2 S [facility] Department of Radiology [address] [place] [id number] ======== Patient Name: KYLIE RUEDA : [...] Documentation Electronically signed by:Savannah Mark. Transcribed by: [email or web address], User Resident: Electronically Signed by: SAVANNAH MARK @ 11/18/2017 12:08 PM Normal [facility] Comment on above: Order Comment: ORIF RIGHT DISTAL RADIUS APTTon 11-15-2017 aPTT Coag time (Bld) 29.2 s Normal 25.0-35.0 [facility] Comment on above: Order Comment: patie nt [...] THIS PURPOSE. Performed By: #### 5 6101, [id number] #### [facility] [address] BASIC METABOLIC PANELon 10-0 Calcium mass conc 9.4 mg/dL Normal 8.6-10.3 [facility] Comment on above: Performed By: #### 0 0071 #### [facility] [address] [place] [address], [facility] Chloride molar conc 99 mmol/L Normal 98-107 [facility] Comment on above: Performed By: #### 0 0071 #### [facility] [address] [place] [address], [place] CO2 molar conc 32 mmol/L High 21-31 [facility] Comment on above: Performed By: #### 0 0071 #### [facility] [address] [place] [address], [facility] Creatinine mass conc 0.88 mg/dL Normal 0.70-1.30 [facility] Comment on above: Performed By: #### 0 0071 #### [facility] [address] [place] [address], [place] GFR/1.73 sq M predicted among blacks MDRD vol rate/area (S/P/Bld) mL/min/{1.73_m2} Normal >60 [facility] Comment on above: Performed By: #### 0 0071 #### [facility] [address] [place] [address], [facility] GFR/1.73 sq M predicted among non-blacks MDRD vol rate/area (S/P/Bld) mL/min/{1.73_m2} Normal >60 [facility] Comment on above: Performed By: #### 0 0071 #### [facility] [address] [place] [address], [place] Glucose mass conc 109 mg/dL High 70-100 [facility] Comment on above: Performed By: #### 0 0071 #### [facility] [address] [place] [address], [place] Potassium molar conc 4.7 mmol/L Normal 3.5-5.1 [facility] Comment on above: Performed By: #### 0 0071 #### [facility] [address] Sodium molar conc 136 mmol/L Normal 136-145 [facility] Comment on above: Performed By: #### 0 0071 #### [facility] [address] Urea nitrogen mass conc 14 mg/dL Normal 7-25 [facility] Comment on above: Performed By: #### 0 0071 #### [facility] [address] CBC W/DIFFon 11-15-2017 ABS BASOPHILS 0.1 10*3/uL Normal 0.0-0.2 [facility] Comment on above: Performed By: #### 5 0103 #### [facility] [address] ABS IMM GRANS 0.0 10*3/uL Normal 0.0-0.2 [facility] Comment on above: Performed By: #### 5 0103 #### [facility] [address] ABS NEUTROPHILS 4.6 10*3/uL Normal 1.6-7.6 [facility] Comment on above: Performed By: #### 5 0103 #### [facility] [address] Basophils #/vol (Bld) 0.7 % Normal 0.0-1.0 [facility] Comment on above: Performed By: #### 5 0103 #### [facility] [address] Eosinophils #/vol (Bld) 0.4 10*3/uL Normal 0.0-0.5 [facility] Comment on above: Performed By: #### 5 0103 #### [facility] [address] Eosinophils/100 WBC (Bld) 4.1 % Normal 0.0-6.0 [facility] Comment on above: Performed By: #### 5 0103 #### [facility] [address] Erythrocyte distribution width Ratio (RBC) 12.3 % Normal 11.5-15.0 [facility] Comment on above: Performed By: #### 5 0103 #### [facility] [address] Hematocrit Volume Fraction (Bld) 34.9 % Low 39.0-50.0 [facility] Comment on above: Performed By: #### 5 0103 #### [facility] [address] Hemoglobin mass conc (Bld) 11.7 g/dL Low 13.0-17.0 [facility] Comment on above: Performed By: #### 5 0103 #### [facility] [address] IMMATURE GRANS 0.2 % Normal 0.0-1.0 [facility] Comment on above: Performed By: #### 5 0103 #### [facility] [address] Lymphocytes #/vol (Bld) 2.5 10*3/uL Normal 1.2-4.0 [facility] Comment on above: Performed By: #### 5 0103 #### [facility] [address] Lymphocytes/100 WBC (Bld) 29.0 % Normal 20.0-45.0 [facility] Comment on above: Performed By: #### 5 3 #### [facility] [address] MCH Entitic mass (RBC) 29.3 pg Normal 27.0-33.0 [facility] Comment on above: Performed By: #### 5 0103 #### [facility] [address] MCHC mass conc (RBC) 33.5 g/dL Normal 32.0-35.0 [facility] Comment on above: Performed By: #### 102 #### [facility] [address] MCV Entitic volume (RBC) 87.3 fL Normal 82.0-98.0 [facility] Comment on above: Performed By: #### 102 #### [facility] [address] Monocytes #/vol (Bld) 1.0 10*3/uL Normal 0.1-1.0 [facility] Comment on above: Performed By: #### 102 #### [facility] [address] MONOS 12.0 % Normal 5.0-12.0 [facility] Comment on above: Performed By: #### 102 #### [facility] [address] Neutrophils/100 WBC (Bld) 54.0 % Normal 40.0-72.0 [facility] Comment on above: Performed By: #### 102 #### [facility] [address] Nucleated RBC/100 WBC Ratio (Bld) 0 % Normal 0-0 [facility] Comment on above: Performed By: #### 5 3 #### [facility] [address] PLAT CNT 288 10*3/uL Normal 150-400 [facility] Comment on above: Performed By: #### 102 #### [facility] [address] [place] [address], [place] RBC #/vol (Bld) 4.00 10*6/uL Low 4.20-5.70 [facility] Comment on above: Performed By: #### 5 0103 #### [facility] [address] [facility]. [address] WBC #/vol (Bld) 8.53 10*3/uL Normal 4.00-10.60 [facility] Comment on above: Performed By: #### 5 0103 #### [facility] [address] PROTHROMBIN TIMEon 8 INR Coag RelTime (PPP) 1.01 {INR} Normal 0.91-1.16 [facility] Comment on above: Order Comment: Patie nt [...] CHEST 1995;108:231S-246S. Performed By: #### 5 6101, 08527 #### [facility] [address] [place] [address], [facility] Prothrombin time (PT) Coag time (PPP) 13.3 s Normal 12.3-14.8 [facility] Comment on above: Order Comment: Patie nt [...] OF SAMPLING. Performed By: #### 5 6101, 66269 #### [facility] [address] PAIN MANAGEMENT DRUG PANEL 2 [id number] 05-04-2017 6-ACETYLMORPHINE Not Detected Normal [facility] Comment on above: Order Comment: Please call [facility] at [phone] for Technical Document Writer consultation or assistance with interpretation if needed. 7-AMINOCLONAZEPAM Not Detected Normal [facility] Comment on above: Order Comment: Please call [facility] at [phone] for Technical Document Writer consultation or assistance with interpretation if needed. ALPRAZOLAM Not Detected Normal [facility] Comment on above: Order Comment: Please call [facility] at [phone] for Technical Document Writer consultation or assistance with interpretation if needed. AMPHETAMINE Not Detected Normal [facility] Comment on above: Order Comment: Please call [facility] at [phone] for Technical Document Writer consultation or assistance with interpretation if needed. [id number] Not Detected Normal [facility] Comment on above: Order Comment: Please call [facility] at [phone] for Technical Document Writer consultation or assistance with interpretation if needed. BARITURATES Not Detected Normal [facility] Comment on above: Order Comment: Please call [facility] at [phone] for Technical Document Writer consultation or assistance with interpretation if needed. Benzoylecgonine Ql (U) Not Detected Normal [facility] Comment on above: Order Comment: Please call [facility] at [phone] for Technical Document Writer consultation or assistance with interpretation if needed. BUPRENORPHINE Not Detected Normal [facility] Comment on above: Order Comment: Please call [facility] at [phone] for Technical Document Writer consultation or assistance with interpretation if needed. CLONAZEPAM Not Detected Normal [facility] Comment on above: Order Comment: Please call [facility] at [phone] for Technical Document Writer consultation or assistance with interpretation if needed. CODEINE URINE Not Detected Normal [facility] Comment on above: Order Comment: Please call [facility] at [phone] for Technical Document Writer consultation or assistance with interpretation if needed. CREATININE URINE 102.9 mg/dL Normal 20.0-400.0 [facility] Comment on above: Order Comment: Please call [facility] at [phone] for Technical Document Writer consultation or assistance with interpretation if needed. DIAZEPAM Not Detected Normal [facility] Comment on above: Order Comment: Please call [facility] at [phone] for Technical Document Writer consultation or assistance with interpretation if needed. EER PAIN MGT DRUG PANEL, HIGH RES See Note Normal [facility] Comment on above: Order Comment: Please call [facility] at [phone] for Technical Document Writer consultation or assistance with interpretation if needed. Result Comment: Acce ss [employer] Enhanced Report using either link below: -Direct access: [email or web address] -Enter Username, Password: https://Site Lock Username: [email or web address] Password: [email or web address] Performed by [employer], [address] [place] [id number] [email or web address], Vinayak Marin MD - Lab. Director ETHYL GLUCURONIDE Not Detected Normal [facility] Comment on above: Order Comment: Please call [employer] at [phone] for Technical Document Writer consultation or assistance with interpretation if needed. FENTANYL Not Detected Normal [facility] Comment on above: Order Comment: Please call [facility] at [phone] for Technical Document Writer consultation or assistance with interpretation if needed. HYDROCODONE Not Detected Normal [facility] Comment on above: Order Comment: Please call [facility] at [phone] for Technical Document Writer consultation or assistance with interpretation if needed. HYDROMORPHONE Present Normal [facility] Comment on above: Order Comment: Please call [facility] at [phone] for Technical Document Writer consultation or assistance with interpretation if needed. LORAZEPAM Not Detected Normal [facility] Comment on above: Order Comment: Please call [facility] at [phone] for Technical Document Writer consultation or assistance with interpretation if needed. MARIJUANA METABOLITE Not Detected Normal e [facility] Comment on above: Order Comment: Please call [facility] at [phone] for Technical Document Writer consultation or assistance with interpretation if needed. MDA Not Detected Normal [facility] Comment on above: Order Comment: Please call [facility] at [phone] for Technical Document Writer consultation or assistance with interpretation if needed. MDEA- SHEEBA Not Detected Normal [facility] Comment on above: Order Comment: Please call [facility] at [phone] for Technical Document Writer consultation or assistance with interpretation if needed. MDMA- ECSTASY Not Detected Normal [facility] Comment on above: Order Comment: Please call [facility] at [phone] for Technical Document Writer consultation or assistance with interpretation if needed. MEPERIDINE Not Detected Normal [facility] Comment on above: Order Comment: Please call [facility] at [phone] for Technical Document Writer consultation or assistance with interpretation if needed. Methadone Ql (U) Not Detected Normal [facility] Comment on above: Order Comment: Please call [facility] at [phone] for Technical Document Writer consultation or assistance with interpretation if needed. METHAMPHETAMINE Not Detected Normal [facility] Comment on above: Order Comment: Please call [facility] at [phone] for Technical Document Writer consultation or assistance with interpretation if needed. METHYLPHENIDATE Not Detected Normal [facility] Comment on above: Order Comment: Please call [facility] at [phone] for Technical Document Writer consultation or assistance with interpretation if needed. MIDAZOLAM Not Detected Normal [facility] Comment on above: Order Comment: Please call [facility] at [phone] for Technical Document Writer consultation or assistance with interpretation if needed. MORPHINE Not Detected Normal [facility] Comment on above: Order Comment: Please call [facility] at [phone] for Technical Document Writer consultation or assistance with interpretation if needed. NORBUPRENORPHINE Not Detected Normal [facility] Comment on above: Order Comment: Please call [facility] at [phone] for Technical Document Writer consultation or assistance with interpretation if needed. NORDIAZEPAM Present Normal [facility] Comment on above: Order Comment: Please call [facility] at [phone] for Technical Document Writer consultation or assistance with interpretation if needed. NORFENTANYL Not Detected Normal [facility] Comment on above: Order Comment: Please call [facility] at [phone] for Technical Document Writer consultation or assistance with interpretation if needed. NORHYDROCODONE Not Detected Normal [facility] Comment on above: Order Comment: Please call [facility] at [phone] for Technical Document Writer consultation or assistance with interpretation if needed. NOROXYCODONE Present Normal [facility] Comment on above: Order Comment: Please call [facility] at [phone] for Technical Document Writer consultation or assistance with interpretation if needed. NOROXYMORPHONE Not Detected Normal [facility] Comment on above: Order Comment: Please call [facility] at [phone] for Technical Document Writer consultation or assistance with interpretation if needed. OXAZEPAM Present Normal [facility] Comment on above: Order Comment: Please call [facility] at [phone] for Technical Document Writer consultation or assistance with interpretation if needed. OXYCODONE Present Normal [facility] Comment on above: Order Comment: Please call [facility] at [phone] for Technical Document Writer consultation or assistance with interpretation if needed. OXYMORPHONE Not Detected Normal [facility] Comment on above: Order Comment: Please call [facility] [employer] at [phone] for Technical Document Writer consultation or assistance with interpretation if needed. PAIN MANAGEMENT DRUG PANEL See Below Normal [facility] Comment on above: Order Comment: Please call [facility] [employer] at [phone] for Technical Document Writer consultation or assistance with interpretation if needed. [...] developed and its performance characteristics determined by [employer]. The U.S. Food and Drug Administration has not approved or cleared this test; however, FDA clearance or approval is not currently required for clinical use. The results are not intended to be used as the sole means for clinical diagnosis or patient management decisions. PCP Not Detected Normal [facility] Comment on above: Order Comment: Please call [facility] [employer] at [phone] for Technical Document Writer consultation or assistance with interpretation if needed. PHENTERMINE Not Detected Normal [facility] Comment on above: Order Comment: Please call [facility] [employer] at [phone] for Technical Document Writer consultation or assistance with interpretation if needed. Protein mass conc Not Detected Normal [facility] Comment on above: Order Comment: Please call [facility] [employer] at [phone] for Technical Document Writer consultation or assistance with interpretation if needed. Result Comment: The carisoprodol immunoassay has cross-reactivity to carisoprodol and meprobamate. TAPENTADOL Not Detected Normal [facility] Comment on above: Order Comment: Please call [facility] at [phone] for Technical Document Writer consultation or assistance with interpretation if needed. KEESJIJIXK-S-MVQY Not Detected Normal [facility] Comment on above: Order Comment: Please call [facility] at [phone] for Technical Document Writer consultation or assistance with interpretation if needed. TEMAZEPAM Present Normal [facility] Comment on above: Order Comment: Please call [facility] at [phone] for Technical Document Writer consultation or assistance with interpretation if needed. TRAMADOL Not Detected Normal [facility] Comment on above: Order Comment: Please call [facility] at [phone] for Technical Document Writer consultation or assistance with interpretation if needed. ZOLPIDEM Not Detected Normal [facility] Comment on above: Order Comment: Please call [facility] at [phone] for Technical Document Writer consultation or assistance with interpretation if needed. Vital Signs Date Time Vital Sign Value Performing Clinician Facility 12-01-2021 14:28-0400 SaO2% (BldA) [Mass fraction] 89.9 % [facility] Resp Auto SS 06-09-2021 11:04-0400 Blood Pressure Location Cintia Alves Jr. [facility] [place] 06-09-2021 11:04-0400 Diastolic blood pressure 76 mm[Hg] Cintia Alves Jr. [facility] [place] 06-09-2021 11:04-0400 Heart rate 63 /min Cintia Alves Jr. [facility] 06-09-2021 11:04-0400 Respiratory rate 16 /min Cintia Alves Jr. [facility] 06-09-2021 11:04-0400 Systolic blood pressure 120 mm[Hg] Cintia Alves Jr. [facility] [place] 05-12-2021 08:37-0400 Blood Pressure Location Cintia Alves Jr. [facility] 05-12-2021 08:37-0400 Body temperature 97.52 [degF] Cintia Alves Jr. [facility] 05-12-2021 08:37-0400 Diastolic blood pressure 73 mm[Hg] Cintia Alves Jr. [facility] 05-12-2021 08:37-0400 Heart rate 79 /min Cintia Alves Jr. [facility] 05-12-2021 08:37-0400 Mean blood pressure 87 mm[Hg] Cintia Alves Jr. [facility] 05-12-2021 08:37-0400 Systolic blood pressure 115 mm[Hg] Cintia Alves Jr. [facility] 05-12-2021 08:36-0400 Blood Pressure Location Cintia Alves Jr. [facility] 05-12-2021 08:36-0400 Diastolic blood pressure 74 mm[Hg] Cintia Alves Jr. [facility] 05-12-2021 08:36-0400 Heart rate 78 /min Cintia Alves Jr. [facility] 05-12-2021 08:36-0400 Mean blood pressure 93 mm[Hg] Cintia Alves Jr. [facility] 05-12-2021 08:36-0400 Respiratory rate 18 /min Cintia Alves Jr. [facility] 05-12-2021 08:36-0400 SaO2% (BldA) [Mass fraction] 94 % Cintia Alves Jr. [facility] 05-12-2021 08:36-0400 Systolic blood pressure 132 mm[Hg] Cintia Alves Jr. [facility] 12-04-2019 07:25-0400 Body Temperature 98.6 [degF] [facility] 12-04-2019 07:25-0400 BP Diastolic 86 mm[Hg] [facility] , [place] 12-04-2019 07:25-0400 BP Systolic 158 mm[Hg] [facility] [place] 12-04-2019 07:25-0400 Pulse (Heart Rate) 63 /min [facility] 12-04-2019 07:25-0400 Pulse Oximetry 94 % [facility] [place] 12-04-2019 07:25-0400 Respiratory Rate 16 /min [facility] 12-04-2019 04:00-0400 BMI (Body Mass Index) 34.07 kg/m2 [facility], [place] 12-04-2019 04:00-0400 Body weight 110.81 kg [facility] [place] 12-03-2019 06:32-0400 Height 180.3 cm [facility] [place] 11-19-2019 13:41-0400 BP Diastolic 95 mm[Hg] [address] , [place] 11-19-2019 13:41-0400 BP Systolic 151 mm[Hg] [address] , [place] 11-19-2019 12:18-0400 BMI (Body Mass Index) 32.62 kg/m2 [address], [place] 11-19-2019 12:18-0400 Body Temperature 98.1 [degF] [address], [place] 11-19-2019 12:18-0400 Body weight 106.[address] , [place] 11-19-2019 12:18-0400 Height 180.[address]- [place] , [place] 11-19-2019 12:18-0400 Pulse (Heart Rate) 67 /min Sta 1 [facility] [place], [place] 11-19-2019 12:18-0400 Pulse Oximetry 98 % Sta 1 [facility] [place] , [place] 11-19-2019 12:18-0400 Respiratory Rate 18 /min Sta 1 [facility] Encounters Encounter Date Encounter Type Care Provider Facility Start: 02-10-2023 End: 02-11-2023 ambulatory JENNY CAST [facility] Start: 04-19-2022 End: 04-19-[address] JENNY CAST Facility:[facility] Start: 01-24-2022 End: 01-24-[address] BECK SAENZ Facility: Start: 12-01-2021 End: 12-02-2021 ambulatory VERNELL WILKERSON Facility:[facility] Start: 12-01-2021 End: 12-02-2021 ambulatory VERNELL WILKERSON . Facility: Start: 12-01-2021 End: 12-01-2021 Lab Drop off VERNELL WILKERSON [facility] Start: 11-09-2021 End: 11-10-[address] KAY MARROQUIN Facility: Start: 08-18-2021 End: 08-19-2021 ambulatory Cintia Alves Facility:[facility] [place] Start: 08-18-2021 End: 08-18-2021 Patient encounter procedure Cintia Alves Jr. [facility] Start: 06-09-2021 ambulatory Cintia Alves Facility:[facility] Start: 06-09-2021 End: 06-10-2021 ambulatory Cintia Alves Facility:[facility] [place] Start: 06-09-2021 End: 06-09-2021 Patient encounter procedure Cintia Alves Jr. [facility] Start: 05-21-2021 End: 05-21-2021 ambulatory Cintia Alves Facility:[facility] Start: 05-20-2021 Encounter for preprocedural cardiovascular examination DR CINTIA Banuelos [facility] Start: 05-16-2021 End: 05-17-[address] CINTIA Banuleos Facility: Start: 05-15-2021 ambulatory Cintia Alves Facility:[facility] Start: 05-12-2021 End: 05-13-2021 ambulatory Cintia Alves Facility:[facility] Start: 05-12-2021 End: 05-12-2021 Patient encounter procedure Cintia Alves Jr. [facility] Start: 04-30-2021 ambulatory Cintia Alves Facility:[facility] Start: 04-28-2021 End: 04-29-2021 ambulatory Cintia Alves Facility:[facility] Start: 04-10-2021 End: 04-13-2021 ambulatory JENNY Young [facility] Start: 04-02-2021 End: 04-03-2021 ambulatory Cintia Alves Facility:[facility] Start: 03-31-2021 End: 04-03-2021 ambulatory AZUCENA EVANS [facility] Start: 02-25-2021 ambulatory Cintia Alves Facility:[facility] Start: 02-24-2021 End: 02-25-2021 ambulatory Cintia Alves Facility:[facility] Start: 01-13-2021 ambulatory Cintia Alves Facility:[facility] [place] Start: 12-03-2019 End: 12-04-2019 Subsequent hospital visit by physician Boy Polk Work Phone: [facility] Start: 11-29-2019 End: 12-03-2019 Subsequent hospital visit by physician Kathya Hurley Rm 4 [facility] Start: 11-19-2019 End: 11-23-2019 Subsequent hospital visit by physician Kathya Hurley Rm 1 [facility] Start: 03-09-2018 End: 03-10-2018 Patient encounter procedure CARLOS EVANS Facility:[facility] Start: 01-26-2018 End: 01-27-2018 Patient encounter procedure CARLOS EVANS Facility:[facility] Start: 12-29-2017 End: 12-30-2017 Patient encounter procedure CARLOS EVANS Facility:[facility] Start: 12-01-2017 End: 12-02-2017 Patient encounter procedure HEMA VILCHIS Facility:[facility] Start: 11-18-2017 End: 11-19-2017 Patient encounter procedure KRISHNA CHRISTIAN Facility:[facility] Start: 11-15-2017 Encounter for other specified special examinations CARLOS EVANS [facility] Start: 11-15-2017 End: 11-16-2017 Patient encounter procedure CARLOS EVANS Facility:[facility] Start: 07-25-2017 End: 07-26-2017 Patient encounter procedure JAYESH LAZO Facility:[facility] Start: 05-27-2017 End: 05-28-2017 Patient encounter procedure TONJA MARY Facility:[facility] Start: 05-04-2017 End: 05-05-2017 Patient encounter procedure Maira Alyssa Facility:[facility] Encounter for other specified special examinations CARLOS EVANS [facility] Procedures Date Procedure Procedure Detail Performing [...] - Td) DTaP/Tdap/Td vaccine (2 - Td) [place], [place] Start: 08-24-2022 ambulatory Ambulatory Facility:[facility] Start: 12-03-2019 End: 12-03-2019 Hospital Encounter [facility] Comment on above: INTRATHECAL PUMP REP LACEMENT AND CATHETER REVISION Start: 11-29-2019 End: 11-29-2019 Appointment 11/29/2019 Appointment Pre-Admission Testing [facility] Start: 11-19-2019 Annual Wellness Visi t (AWV) Annual Wellness Visit (AWV) [place], [place] Start: 10-16-2019 Influenza vaccination Flu vaccine (# 1) [place], [place] Start: 1998 Screening for malign ant neoplasm of colon Colon cancer screen colonoscopy [place], [place] Start: 08-29-1967 DTaP/Tdap/Td vaccine (1 - Tdap) DTaP/Tdap/Td vaccine (1 - Tdap) [place], [place] Start: 1958 Lipid panel Lipid screen [place], [place] Start: 1948 Abdominal aortic aneurysm screening AAA screen [place], [place] Start: 1948 Creatinine measurement Creatinine mo nitoring [place], [place] Start: 1948 Hepatitis C screening Hepatitis C sc reen [place], [place] Start: 1948 Potassium monitoring Potassium monit oring [place] Continuous pulse oximetry Pulse oximetry, continuous Respiratory Care Routine Every 4hr until discontinued starting 12/03/2019 [place] Comment on above: Every 4hr until disc ontinued starting 12/03/2019 End: 11-29-2019 COVID- COVID-19 Lab Routine One Time for 1 Occurrences starting 11/29/2019 until 11/29/2019 [place] Comment on above: One Time for 1 Occur rences starting 11/29/2019 until 11/29/2019 Intermittent pulse oximetry Pulse Oximetry Spot Check Respiratory Care Routine As Needed until discontinued starting 12/03/2019 [place] Comment on above: As Needed until disc ontinued starting 12/03/2019 Oxygen therapy [[facility] Data Set] Initiate Oxygen Therapy Protocol Respiratory Care Routine Daily until discontinued starting 12/03/2019 [place] Comment on above: Daily until disconti nued starting 12/03/2019 Immunizations Immunization Date Immunization Notes Care Provider Hallie nixon 07-16-2020 SARS-CoV-2 (COVID-19 ) Ad26 vaccine, recombinant Cintia Alves Jr. [facility] 06-18-2020 SARS-CoV-2 (COVID-19 ) Ad26 vaccine, recombinant Cintia Alves Jr. [facility] 11-01-2019 Influenza, Quadv, adjuvanted, 65 yrs +, IM, PF (Fluad) [address] 11-01-2019 tetanus toxoid, redu rich diphtheria toxoid, and acellular pertussis vaccine, adsorbed [address] 10-26-2017 Seasonal trivalent influenza vaccine, adjuvanted, preservative free [address], [place] 10-26-2017 zoster vaccine recombinant [address], [place] 06-22-2017 zoster vaccine recombinant [address] 09-27-2016 Seasonal trivalent influenza vaccine, adjuvanted, preservative free [address], [place] 11-06-2015 influenza, high dose seasonal, preservative-free [address], [place] 11-06-2015 pneumococcal conjuga te vaccine, [address], [place] 10-31-2015 pneumococcal conjuga te vaccine, [address] 10-28-2014 influenza, high dose seasonal, preservative-free [address], [place] 10-18-2013 pneumococcal polysaccharide vaccine, [address], [place] Payers Date Payer Category Payer Medicare [id number] 1959 Unknown [id number] 1948 Unknown [id number] 2.16.8 40.1.507480.3.579.2. 1948 Unknown [id number] 2.16.8 40.1.566836.3.579.2.647 1948 Unknown [id number] 2.16.8 40.1.289160.3.579.2.647 1948 Unknown [id number] 2.16.8 40.1.277098.3.579.2.647 1948 Unknown [id number] 2.16.8 40.1.488263.3.579.2.647 1948 Unknown [id number] 2.16.8 40.1.194446.3.579.2.647 1948 Unknown [id number] 2.16.8 40.1.371602.3.579.2.647 1948 Unknown [id number] 2.16.8 40.1.133877.3.579.2.647 1948 Unknown [id number] 2.16.8 40.1.198365.3.579.2.647 1948 Unknown [id number] 2.16.8 40.1.864078.3.579.2.177 1948 Unknown [id number] 2.16.8 40.1.146626.3.579.2.177 1948 Unknown [id number] 2.16.8 40.1.188926.3.579.2.177 1948 Unknown [id number] 2.16.8 40.1.943865.3.579.2. 1948 Unknown [id number] 2.16.8 40.1.041400.3.579.2.72 1948 Unknown [id number] 2.16.8 40.1.897140.3.579.2.72 1948 Unknown [id number] 2.16.8 40.1.760014.3.579.2.72 1948 Unknown [id number] 2.16.8 40.1.407734.3.579.2.727 1948 Unknown [id number] 2.16.8 40.1.563615.3.579.2.727 1948 Unknown [id number] 2.16.8 40.1.574562.3.579.2.72 1948 Unknown [id number] 2.16.8 40.1.906687.3.579.2.727 1948 Unknown [id number] 2.16.8 40.1.470193.3.579.2.72 1948 Unknown [id number] 2.16.8 40.1.113615.3.579.2.72 1948 Unknown [id number] 2.16.8 40.1.268287.3.579.2.727 1948 Unknown [id number] 2.16.8 40.1.224496.3.579.2.727 1948 Unknown [id number] 2.16.8 40.1.737104.3.579.2.727 1948 Unknown [id number] 2.16.84 0.1.402360.3.579.2.593 1948 Unknown [id number] 2.16.84 0.1.913725.3.579.2.593 1948 Unknown [id number] 2.16.84 0.1.392183.3.579.2.593 1948 Unknown [id number] 2.16.84 0.1.428188.3.579.2.593 1948 Unknown [id number] 2.16.84 0.1.995140.3.579.2.593 1948 Unknown [id number] 2.16.84 0.1.941794.3.579.2.1286 Medicare [id number] Social History Date Type Detail Facility Start: 11-19-2019 End: 06-09-2021 Tobacco smoking status NHIS Former smoker [place], [place] History of tobacco use Cigarette Smoker [place] Start: 11-19-2019 End: 12-03-2019 Tobacco use and exposure Never used [place], [place] Start: 11-19-2019 End: 12-03-2019 Alcohol intake Ex-drinker (finding) [facility] Start: 11-19-2019 Tobacco Comment quit smoking 1 2 years ago (written 11/19/2019) [place], [place] Sex Assigned At Not on file [place] Exposure to SARS-CoV -2 (event) Not sure [place] Sex Assigned At Male [facility] Medical Equipment Procedure Code Equipment Code Equipment Origin al Text Equipment Identifier Dates Pump Infuse Pain Synchromed Ii 40ml - [id number] Start: 12-03-2019 Cath Ascenda 114cm [id number] Start: 12-03-2019 Functional Status Date Assessment Result Facility 08-18-2021 Functional Status N/A [facility] Clinical Notes 04-02-2021 to 08-18-2021 Note [...] urethra. Follow these instructions at home: Take plhq-kpo-ciqvypy and prescription medicines only as told by [...] Document Reviewed: 03/07/2017 Elsevier Patient Education 2019 Emida. Follow Up Care 06/09/2021 11:49:23 With:Shawn Allen MD, SHAMA Mccabe Address: [facility] [address], [place] [address] [phone] When: Unknown [facility] 06-09-2021 Hospital Discharge instructions Patient Education 06/09/2021 [...] personal one. It is often based on mormonism, social, or cultural beliefs. Circumcision is most [...] 01/28/2001 Document Revised: 07/17/2018 Document Reviewed: 07/17/2018 [employer] [place] Patient Education 2020 Ambassador Follow Up Care 06/03/2021 11:02:25 With:Shawn Allen MD, Cintia Hernandez, URO Address: [facility] [address], [place] [address]- When:08/09/2021 [facility] 05-17-[address] CHEST WO CON CLINICAL: [...] authenticated by: JESSA FISHMAN Date: 2021-05-17 09:46 [facility] 05-01-2021 Note [id number]:127 [facility] 04-06-2021 Note [id number]:127 [facility] 04-02-2021 Note Cystoscopy ? Voiding after the [...] you have a fever over 100 degrees. [facility] Evaluation + Plan note Future Appointments Appointment Date:05/21/2021 11:00:00 AM Scheduled Provider: Location:[facility] Appointment Type:Surgery [facility] Evaluation + Plan note Future Appointments Appointment Date:08/18/2021 10:15:00 AM Scheduled Provider:Cintia Alves Jr., MD Location:[facility] Appointment Type:URO Office Visit [facility] [place] Evaluation + Plan note Future Appointments Appointment Date:08/24/2022 10:45:00 AM Scheduled Provider:Cintia Alves Jr., MD Location:[facility] Appointment Type:URO Office Visit Diagnostic Tests PendingPSA Total 08/18/21 [facility] Evaluation + Plan note Future Appointments Appointment Date:08/24/2022 10:45:00 AM Scheduled Provider:Shawn Allen MD, Cintia Hernandez Location:[facility] Appointment Type:URO Office Visit [facility] Hospital course Narrative No data available for this section [facility] Hospital Discharge instructions No data available for this section [facility] Progress note No data available for this section [facility] Summary Purpose Family History No Family [...] Nava MD - 12/04/2019 1:44 PM EDT [facility] Office: [phone] Segun Andino DO, Edvin Park DO, Durga [...] Shanks MD, Jorge Sauceda MD, Gina Gross OUTPATIENT CASE MANAGER, Vale Hazel OUTPATIENT CASE MANAGER, Susy Villalta OUTPATIENT CASE MANAGER, Marily Wade LINER INSTALLER, Ayo Mcnair OUTPATIENT CASE MANAGER, Joselito OUTPATIENT CASE MANAGER, Lulú Campa OUTPATIENT CASE MANAGER, Ruthie Lizarraga OUTPATIENT CASE MANAGER, Boy Craven OUTPATIENT CASE MANAGER, Paul Estrada PA-C, Florence Ni OUTPATIENT CASE MANAGER, Lyssa Rich OUTPATIENT CASE MANAGER, Lali Burciaga OUTPATIENT CASE MANAGER, Narcisa Benitez OUTPATIENT CASE MANAGER, Vanessa Isabel CNP, Reema Quintana CNP [facility] Discharge Summary Patient ID: Kylie Rueda : 1950 ACCOUNT: [id number] Patient Location : Patient's PCP: Jenny Cast [...] Home Physician Follow Up: Boy Polk MD [address] [facility] [address] Go on 12/10/2019 Appointment 12-10-19 at 1:45pm Jenny Cast [facility] [address] In 1 week Requiring Further Evaluation/Follow Up [...] Everywhere. * Acute Pain Management: General Info (Qatari) * Surgery Post-op: General Info (Qatari) documented in this encounter History of Present Illness * Sammie Appiah RN - 12/04/2019 2:02 PM EDT Pt discharged to home per wc with dgt. No scripts at this time. Pt to f/u with dr polk if pain continues or worsens on 12/04 * Jennifer Nava MD - 12/04/2019 8:04 AM EDT [facility] Office: [phone] Segun Andino DO, Edvin Park DO, Durga White DO, Yoan Kamara DO, Anjelica Cornelius MD, Luda Rm MD, Jennifer Nava MD, Jess Pollard MD, Mikal Stevens MD, Aria Fowler MD, MD [place], Valente Dawn MD, Chey Aceves MD, Yobany Zazueta DO, Jac Curiel MD, Ramo Gee MD, Gerardo Gates DO, Smita May MD, Carlos Early DO, Pietro Shanks MD, MD Christian, Gina Gross, OUTPATIENT CASE MANAGER, Vale Hazel, OUTPATIENT CASE MANAGER, Susy Villalta, OUTPATIENT CASE MANAGER, Marily Wade, [facility],Ayo Mcnair, OUTPATIENT CASE MANAGER, Claribel Salmon, OUTPATIENT CASE MANAGER, Lulú Campa, OUTPATIENT CASE MANAGER, Ruthie Lizarraga, OUTPATIENT CASE MANAGER, Boy [place], OUTPATIENT CASE MANAGER, Paul Estrada PA-C, Florence Ni, HERMELINDO, Lyssa Rich, OUTPATIENT CASE MANAGER, Lali Burciaga, OUTPATIENT CASE MANAGER, Narcisa Benitez, OUTPATIENT CASE MANAGER, Vanessa Isabel, OUTPATIENT CASE MANAGER, Reema Quintana, OUTPATIENT CASE MANAGER [facility] Daily Progress Note Admit Date: 12/03/2019 [...] TIA x 1) CHF (congestive heart failure) ([facility]) Chronic back pain COPD (chronic obstructive pulmonary disease) ([facility]) History of cardiac cath 09/21/2019 [...] No results for input(s): PROT, LABALBU, LABA1C, M4YXDON, U9UQSKB, FT4, TSH, AST, ALT, LDH, GGT, ALKPHOS, BILITOT, BILIDIR, AMMONIA, AMYLASE, LIPASE, LACTATE, CHOL, HDL, LDLCHOLESTEROL, CHOLHDLRATIO, TRIG, VLDL, BNP, TROPONINI, CKTOTAL, CKMB, CKMBINDEX, RF, WICHO in the last 72 hours. Specific [place], [place] Date Value Ref Range Status 11/19/2019 [...] section and content) DATE CREATED AUTHOR 03/28/2018 [facility] DATE CREATED AUTHOR AUTHOR'S ORGANIZ ATION 04/12/2021 [facility] DATE CREATED AUTHOR AUTHOR'S ORGANIZ ATION 12/10/2021 [facility] DATE CREATED AUTHOR AUTHOR'S ORGANIZ ATION 05/05/2022 [facility] DATE CREATED AUTHOR AUTHOR'S ORGANIZ ATION 09/30/[address] [facility] DATE CREATED AUTHOR AUTHOR'S ORGANIZ ATION 02/04/2023 [facility] DATE CREATED AUTHOR AUTHOR'S ORGANIZ ATION 02/14/2023 [facility] Reason for Visit (unrecogniz ed section and content) Status Reason Specialty Diagnoses / Procedures Referre d By Contact Referred To Contact Diagnoses Lumbar radiculopathy DX LUMBAR RADICULOPATHY Procedures MO NJX DX/THER SBST INTRLMNR CRV/THRC W/IMG GDN INSERT/ REPLACE INFUSN PUMP,PROGRAMMABLE INTRATHECAL PUMP REPLACEMENT AND CATHETER REVISION Boy Polk MD [address] [place] [address] [facility] Care Team (unrecognized sect ion and content) Personnel Name: JENNY CAST MD Address: [address] [place] [address] Personnel Name: JENNY CAST MD Address: Address: [address] [place] [address] FOR RECORDS PERTAINING TO PATIENTS WHO ARE [...] BE BASED ON THE PRIMARY CLINICAL RECORDS. [facility] [employer] [facility]. provides no warranty or guarantee of the accuracy or completeness of information in this document.
--- NOTE | 2023-03-14 11:12 | US_ITS ---
[place] [id number] Patient Name: KYLIE RUEDA MRN: [id number] date: 1950 Sex: M Assigned Patient Location: [place] Current Patient Location: [place] Accession/Order Number: [id number] Exam Date: 03/14/2023 13:20 Report Date: 03/14/2023 14:07 At the request of: RITA MILLER Procedure: US carotid duplex BI EXAMINATION: US carotid duplex BI HISTORY: cva/AMS COMPARISON: No relevant comparison available. TECHNIQUE: Duplex Doppler ultrasound analysis of carotid and vertebral arteries. . Bilateral carotid arterial duplex examination was performed using B-mode, color flow and spectral analysis. Carotid stenosis is reported according to validated velocity parameters, similar to NASCET criteria. FINDINGS: RIGHT CAROTID ARTERY Mild atherosclerotic plaque Subclavian: PSV: 106.2 cm/s cm/s EDV: 11.6 cm/s cm/s CCA: Prox: PSV: 106.8 cm/s cm/s EDV: 31.9 cm/s cm/s Mid: PSV: 87.1 cm/s cm/s EDV: 18.1 cm/s cm/s Distal: PSV: 62.4 cm/s cm/s EDV: 18.4 cm/s cm/s BULB: PSV: 61.1 cm/s cm/s EDV: 14.5 cm/s cm/s ICA: Prox: PSV: 65.0 cm/s cm/s EDV: 21.0 cm/s cm/s Mid: PSV: 90.5 cm/s cm/s EDV: 37.4 cm/s cm/s Distal: PSV: 81.4 cm/s cm/s EDV: 33.5 cm/s cm/s ECA: PSV: 85.5 cm/s cm/s EDV: 7.9 cm/s cm/s VERTEBRAL: PSV: 54.8 cm/s cm/s EDV: 15.3 cm/s cm/s, antegrade ICA/CCA ratio: PSV: 0.8 EDV: 1.2 LEFT CAROTID ARTERY Mild atherosclerotic plaque Subclavian: PSV: 150.7 cm/s cm/s EDV: 0.0 cm/s CCA: Prox: PSV: 129.8 cm/s cm/s EDV: 30.0 cm/s Mid: PSV: 106.6 cm/s cm/s EDV: 27.6 cm/s Distal: PSV: 81.1 cm/s cm/s EDV: 16.0 cm/s BULB: PSV: 63.3 cm/s cm/s EDV: 14.1 cm/s ICA: Prox: PSV: 67.2 cm/s cm/s EDV: 18.0 cm/s Mid: PSV: 62.0 cm/s cm/s EDV: 24.5 cm/s Distal: PSV: 69.8 cm/s cm/s EDV: 25.8 cm/s ECA: PSV: 104.8 cm/s cm/s EDV: 6.3 cm/s VERTEBRAL: PSV: 67.7 cm/s cm/s EDV: 22.4 cm/s , antegrade ICA/CCA ratio: PSV: 0.5 EDV: 0.9 Normal size normal morphology left neck lymph nodes measuring up to 1.9 x 1.2 x 0.6 cm US/US carotid duplex BI IMPRESSION: 0-49% flow stenosis bilateral internal carotid arteries Spectral Doppler US Thresholds (Reference: Iván EG, et al. Radiology 2000; 214:247-252) Stenosis (%) PSV (cm/sec) VICA/VCCA 0-49 <150 <2.5 50-69 150-225 2.5-4.0 >70 >225 >4.0 Electronically authenticated by: JESSA MIRANDA Date: 03/14/2023 14:07
--- NOTE | 2023-03-14 11:15 | PM.HP ---
H&P: HPI History of Present Illness Chief complaint: GENERAL WEAKNESS Narrative: patient is a 72-year-old male with past medical history of chronic back pain with a intrathecal Dilaudid pump, hypertension, depression, hypertension, GERD, hyperlipidemia, prior CVA, chronic obstructive pulmonary disease. Patient resides at a skilled nursing facility and [place]. He is accompanied today on admission exam by his three daughters. They note that yesterday he notified them that he wasn't feeling himself and fell out of his wheelchair and struck his head. He said to them he felt like he was having a stroke. He had been experiencing some right leg pain and overall weakness. At the time of admission exam he is not able to vocalize any concerns or answer questions. He will respond to some instructions such as gripping hands. Per his daughters he has had a CVA and 2015.he follows with Dr. Echavarria for his pain management and intrathecal pump needs.Emergency Department workup revealed a normal CBC, normal coagulations,normal electrolytes, hemoglobin A1c was 6.0, normal magnesium normal liver function tests, pro BNP and troponin are both normal and cholesterol panel was within normal limits as well as thyroid studies.CT of the brain without contrast showed no acute intracranial processes.chest x-ray and urinalysis were also within normal limits.carotid artery ultrasounds have resulted and showed no carotid artery stenosis. Discussions with daughters and a DNR CCA status was signed. We also discussed options since we don't have a neurologist on staff the need for transfer for MRI given his intrathecal pump. They're in agreement to transfer to the [facility].patient will not responding to any questions so is difficult to get any review of systems, or a good neurological exam. Review of Systems ROS Status of ROS unobtainable due to mental status [facility] Medical History Dehydration ?E86.0 - Dehydration (ICD-10) Acute renal failure ?N17.9 - Acute kidney failure, unspecified (ICD-10) BPH (benign prostatic hyperplasia) ?N40.0 - Benign prostatic hyperplasia without lower urinary tract symptoms (ICD-10) Lumbar degenerative disc disease ?M51.36 - Other intervertebral disc degeneration, lumbar region (ICD-10) Hyperlipidemia ?E78.5 - Hyperlipidemia, unspecified (ICD-10) Congestive heart failure ?I50.9 - Heart failure, unspecified (ICD-10) Neuropathy ?G62.9 - Polyneuropathy, unspecified (ICD-10) Acute kidney injury ?N17.9 - Acute kidney failure, unspecified (ICD-10) Surgical History H/O lumbosacral spine surgery ?Z98.890 - Other specified postprocedural states (ICD-10) H/O cervical spine surgery ?Z98.890 - Other specified postprocedural states (ICD-10) Family History Sister Family history of cancer Social History Within the past year, how often did you have a drink containing alcohol: never Within the past year, how often did you have six or more drinks on one occasion: never Score interpretation: A score less than 4 is consistent with normal alcohol consumption. Smoking status: Former smoker Second hand tobacco smoke exposure: No Non-prescribed substance use: denies use Previous occupational history: retired Known occupational exposures/hazards: No Highest level of school completed/degree received: high school graduate In a typical week, how many times do you talk on the telephone with family, friends, or neighbors: twice per week How often do you get together with friends or relatives: 3 or more times per week How often do you attend islam or adventism services: never Do you belong to any clubs or organizations such as islam groups unions, fraternal or athletic groups, or school groups: no Little interest or pleasure in doing things: several days Feeling down, depressed, or hopeless: several days Feel stressed/tense/nervous/anxious/difficulty sleeping: to some extent Due to disability, difficulty making decisions: No Do you think of yourself as: straight/heterosexual Gender Identity: male Meds Home Medications and Allergies Home Medications Medication Instructions Recorded Confirmed Type albuterol sulfate 90 mcg/actuation 1 inh inhalation Q4H PRN shortness 08/19/22 03/14/23 History aerosol inhaler of breath or wheezing atorvastatin 40 mg tablet 40 mg PO DAILY 08/19/22 03/14/23 History baclofen 10 mg tablet 10 mg PO TID 08/19/22 03/14/23 History carbamazepine 400 mg 400 mg PO Q12H 08/19/22 03/14/23 History tablet,extended release,12 hr clopidogrel 75 mg tablet 75 mg PO DAILY 08/19/22 03/14/23 History diazepam 5 mg tablet 5 mg PO Q6H anxiety 08/19/22 03/14/23 History duloxetine 60 mg capsule,delayed 60 mg PO DAILY 08/19/22 03/14/23 History release fluticasone propionate 50 1 spray intranasal DAILY 08/19/22 03/14/23 History mcg/actuation nasal spray,suspension levalbuterol tartrate 45 2 puff inhalation Q6H 08/19/22 03/14/23 History mcg/actuation aerosol inhaler lisinopril 10 mg tablet 10 mg PO DAILY 08/19/22 03/14/23 History loratadine 10 mg PO DAILY 08/19/22 03/14/23 History magnesium hydroxide 400 mg/5 mL 30 ml PO DAILY PRN constipation 08/19/22 03/14/23 History oral suspension montelukast 10 mg tablet 10 mg PO DAILY 08/19/22 03/14/23 History omeprazole 40 mg capsule,delayed 40 mg PO DAILY 08/19/22 03/14/23 History release oxycodone 5 mg capsule 5 mg PO Q8H PRN pain 08/19/22 03/14/23 History pregabalin 100 mg capsule 100 mg PO Q12H 08/19/22 03/14/23 History terazosin 2 mg capsule 2 mg PO DAILY 08/19/22 03/14/23 History verapamil 240 mg tablet,extended 240 mg PO DAILY 08/19/22 03/14/23 History release aspirin 81 mg tablet,delayed 81 mg PO DAILY 03/14/23 03/14/23 History release Allergies Allergy/AdvReac Type Severity Reaction Status Date / Time Iodinated Contrast Media AdvReac Intermediate Verified 12/14/22 10:17 Exam Narrative Exam Narrative: Skin: no visible rashes, or ulcers Head: atraumatic, acephalic Eyes: closed but PERRLA Heart: Normal rate and rhythm, no murmurs/rubs/gallops Lungs: no audible wheezes, crackles and normal breath sounds all lung floyd Abdomen: Normal audible bowel sounds, no distension, No palpable masses, no organomegaly, no rebound/guarding/ or rigidity Musculoskeletal: no swelling bilateral lower extremities Neuro: no noticeable facial droop, 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 Constitutional Vital Signs, click to edit/add: Last Vital Signs Temp 97.9 F 03/14/23 08:00 Pulse 68 03/14/23 10:45 Resp 15 03/14/23 10:45 BP 97/57 03/14/23 10:45 Pulse Ox 96 03/14/23 10:45 O2 Del Method Nasal Cannula 03/14/23 08:00 O2 Flow Rate 4 03/14/23 08:00 Exam limitations: altered mental status General appearance: ill appearing Nutritional appearance: obese Orientation/consciousness: Yes lethargic Results Labs Labs: Short CBC 03/14/23 Range/Units 08:28 WBC 7.7 (4.0-11.0) 10^3/uL Hgb 10.4 L (14.0-18.0) g/dL Hct 32.0 L (42.0-54.0) % Plt Count 284 (150-450) 10^3/uL BMP 03/14/23 08:28 Sodium 140 Potassium 4.7 Chloride 105 Carbon Dioxide 27.8 BUN 25.0 H Creatinine 1.34 H Glucose 110 H Calcium 8.8 Urine 03/14/23 Range/Units 09:07 Urine Color Lt. yellow (YELLOW) Urine Clarity Clear (CLEAR) Urine pH 6.0 (5.0-9.0) Ur Specific [place] 1.020 (1.005-1.025) Urine Protein Negative (NEG/TRACE) mg/dL Urine Glucose (UA) Negative (NEGATIVE) mg/dL Assessment and Plan Assessment and Plan (1) Altered mental status: Assessment and Plan: All work up so far has been negative; patient needs MRI of the brain and Neuro work up. Patient will be transferred to [facility] under the Neuro service once bed available, continue aspirin, plavix, statin incase acute stroke. Could also be faulty Pain pump or overmedication. Qualifiers: Altered mental status type: transient alteration of awareness Qualified Code(s): R40.4 - Transient alteration of awareness (2) Generalized weakness: Assessment and Plan: see #1 uncertain etiology (3) COPD (chronic obstructive pulmonary disease): Assessment and Plan: no acute exacerbation, continue prn meds (4) Lumbar degenerative disc disease: Assessment and Plan: hold pain meds, gets intrathecal dilaudid (5) Hyperlipidemia: Assessment and Plan: normal lipids, continue statin (6) Neuropathy: Assessment and Plan: Hold home meds for this Plan patient is a DNRCCA plan for transfer once bed available, Dr. Carrillo [facility], continue work up here until then, neuro checks, echo. patient is likely to surpass 2 midnights given current medical state.
[2023-03-14 11:31] LABS: Amphetamine Screen Urine NEGATIVE (NEGATIVE); Barbiturates Screen Urine NEGATIVE (NEGATIVE); Benzodiazepines Screen Urine POSITIVE (NEGATIVE); Buprenorphine Screen Urine NEGATIVE (NEGATIVE); Cannabinoid Screen Urine NEGATIVE (NEGATIVE); Cocaine Screen Urine NEGATIVE (NEGATIVE); Methadone Screen Urine NEGATIVE (NEGATIVE); Methamphetamines Screen Urine NEGATIVE (NEGATIVE); Opiate Screen Urine POSITIVE (NEGATIVE); Oxycodone Screen Urine POSITIVE (NEGATIVE); Phencyclidine Screen Urine NEGATIVE (NEGATIVE); Tricyclic Antidepressant Urine NEGATIVE (NEGATIVE)
[2023-03-14 11:32] LABS: Estimated Average Glucose 126 mg/dL
[2023-03-14 11:41] LABS: Chol HDL Ratio 2.8; Cholesterol 146 mg/dL (<=200); HDL Cholesterol 52 mg/dL (40-60); LDL Cholesterol Calculated 73.6 mg/dL; Thyroid Stimulating Hormone 0.821 uIU/mL (0.358-3.740); Triglycerides 102 mg/dL (<=150); VLDL CHOLESTEROL 20.4 mg/dL
[2023-03-14] MEDS: LACTATED RINGER'S SOLUTION 1,000 ML 50 ML IV (14:00)
[2023-03-14] MEDS: OXYCODONE HCL 5 MG TABLET PO (20:36)
[2023-03-14] MEDS: CARBAMAZEPINE 200 MG TABLET 400 MG PO (20:36)
[2023-03-14] MEDS: ATORVASTATIN CALCIUM 40 MG TABLET PO (20:36)
[2023-03-15] VITALS (14 sets, daily range): BP systolic 150–154; BP diastolic 75–81; PULSE 56–93; RESP 18; TEMP 37–37.2; O2SAT 92–96
--- NOTE | 2023-03-15 02:22 | PC.NURSE ---
Junie from [facility] called for an update on the patient and currently there is no bed available at this time.
[2023-03-15 05:53] LABS: Basophils Absolute Auto 0.1 10^3/uL (0.0-0.1); Basophils Percent Auto 0.9 % (0.2-2.0); Eosinophils Absolute Auto 0.4 10^3/uL (0.0-0.7); Eosinophils Percent Auto 5.4 % (0.9-7.0); Hematocrit 34.4 % (42.0-54.0); Hemoglobin 10.5 g/dL (14.0-18.0); Immature Granulocytes Abs Auto 0.01 10^3/uL (0.00-0.03); Immature Granulocytes Pct Auto 0.2 % (0.0-0.5); Lymphocytes Absolute Auto 2.1 10^3/uL (1.2-3.8); Lymphocytes Percent Auto 31.5 % (20.5-60.0); Mean Corpuscular HGB Conc 30.5 g/dL (29.9-35.2); Mean Corpuscular Hemoglobin 28.8 pg (25.9-34.0); Mean Corpuscular Volume 94.2 fL (80.0-94.0); Mean Platelet Volume 9.3 fL (9.5-13.5); Monocytes Absolute Auto 0.7 10^3/uL (0.3-0.8); Monocytes Percent Auto 10.9 % (1.7-12.0); Neutrophils Absolute Auto 3.4 10^3/uL (1.4-6.5); Neutrophils Percent Auto 51.1 % (43.0-75.0); Platelet Count 273 10^3/uL (150-450); Red Blood Count 3.65 10^6/uL (4.70-6.10); White Blood Count 6.5 10^3/uL (4.0-11.0)
--- NOTE | 2023-03-15 06:02 | PC.NURSE ---
Case Management Director unable to assess neuro status d/t patient being unresponsive and won't open eyes when asked. Patient will only moan to painful stimuli.
[2023-03-15 06:24] LABS: Alanine Aminotransferase 19 U/L (16-63); Albumin Globulin Ratio 0.7; Albumin Level 2.8 g/dL (3.4-5.0); Alkaline Phosphatase 71 U/L (46-116); Anion Gap 12.1; Aspartate Amino Transferase 30 U/L (15-37); BUN Creatinine Ratio 21.1; Bilirubin Total 0.3 mg/dL (0.2-1.0); Calcium 9.1 mg/dL (8.5-10.1); Carbon Dioxide 25.4 mmol/L (21.0-32.0); Chloride 106 mmol/L (98-107); Estimated GFR (African America >60 (>=60); Estimated GFR (Non-African Ame >60 (>=60); Globulin 3.8 g/dL; Glucose 90 mg/dL (74-106); Potassium 4.5 mmol/L (3.5-5.1); Sodium 139 mmol/L (136-145); Total Protein 6.6 g/dL (6.4-8.2)
[2023-03-15] MEDS: LACTATED RINGER'S SOLUTION 1,000 ML 50 ML IV (08:38)
--- NOTE | 2023-03-15 08:47 | P.PN_ITS ---
Progress Note: Subjective Subjective Interval history: daughter is at bedside and television neurology exam also being performed. I spoke with the neurologist and they recommended restarting home medications of the Valium and muscle relaxer. Still no rooms available [facility]. no acute overnight events. Patient is more alert today and is answering questions in a whisper. He appears to answer his daughter more than myself or nursing staff. He will take oral medications in applesauce today. This is an improvement. Ultrasounds of the carotids were negative for any stenosis. Still needs transferred to higher level of care for MRI of the head and spine. Also awaiting echocardiogram results. Exam Narrative Exam Narrative: Exam limitations: altered mental status General appearance: ill appearing Nutritional appearance: obese Orientation/consciousness: lethargic Skin: no visible rashes, or ulcers Head: atraumatic, acephalic Heart: Normal rate and rhythm, no murmurs/rubs/gallops Lungs: no audible wheezes, crackles and normal breath sounds all lung floyd Abdomen: Normal audible bowel sounds, no distension, No palpable masses, no organomegaly, no rebound/guarding/ or rigidity Musculoskeletal: no swelling bilateral lower extremities Neuro: no noticeable facial droop Constitutional Vital Signs, click to edit/add: Last Vital Signs Temp 98.6 F 03/15/23 08:28 Pulse 80 03/15/23 07:43 Resp 18 03/15/23 07:43 BP 150/81 H 03/15/23 07:43 Pulse Ox 94 L 03/15/23 07:43 O2 Del Method Room Air 03/14/23 20:31 O2 Flow Rate 2 03/14/23 11:53 Progress Note: Objective Labs Labs: Short CBC 03/15/23 Range/Units 04:28 WBC 6.5 (4.0-11.0) 10^3/uL Hgb 10.5 L (14.0-18.0) g/dL Hct 34.4 L (42.0-54.0) % Plt Count 273 (150-450) 10^3/uL BMP 03/14/23 03/15/23 08:28 04:28 Sodium 140 139 Potassium 4.7 4.5 Chloride 105 106 Carbon Dioxide 27.8 25.4 BUN 25.0 H 19.0 H Creatinine 1.34 H 0.90 Glucose 110 H 90 Calcium 8.8 9.1 Liver Function 03/15/23 Range/Units 04:28 Total Bilirubin 0.3 (0.2-1.0) mg/dL AST 30 (15-37) U/L ALT 19 (16-63) U/L Alkaline Phosphatase 71 (46-116) U/L Albumin 2.8 L (3.4-5.0) g/dL Urine 03/14/23 Range/Units 09:07 Urine Color Lt. yellow (YELLOW) Urine Clarity Clear (CLEAR) Urine pH 6.0 (5.0-9.0) Ur Specific [place] 1.020 (1.005-1.025) Urine Protein Negative (NEG/TRACE) mg/dL Urine Glucose (UA) Negative (NEGATIVE) mg/dL Progress Note: A&P Assessment and Plan (1) Altered mental status: Assessment and Plan: All work up so far has been negative; patient needs MRI of the brain and Neuro work up. Patient will be transferred to [facility] under the Neuro service once bed available, continue aspirin, plavix, statin incase acute stroke. Could also be faulty Pain pump or overmedication. Will need spine MRI. After discussion with Tele neurology will add back some medications of valium, baclof en, cymbalta and lyrica. Due to his Altered mental status yesterday I was afraid of over medicating him. Seems to respond much much better when daughter is present? Qualifiers: Altered mental status type: transient alteration of awareness Qualified Code(s): R40.4 - Transient alteration of awareness (2) Generalized weakness: Assessment and Plan: see #1 uncertain etiology (3) COPD (chronic obstructive pulmonary disease): Assessment and Plan: no acute exacerbation, continue prn meds Qualifiers: COPD type: unspecified COPD Qualified Code(s): J44.9 - Chronic obstructive pulmonary disease, unspecified (4) Lumbar degenerative disc disease: Assessment and Plan: continue oxycodone PRN and Valium, gets intrathecal dilaudid (5) Hyperlipidemia: Assessment and Plan: normal lipids, continue statin Qualifiers: Hyperlipidemia type: unspecified Qualified Code(s): E78.5 - Hyperlipidemia, unspecified (6) Neuropathy: Assessment and Plan: continue cymbalta and lyrica Plan patient is a DNRCCA plan for transfer once bed available, Dr. Carrillo accepting of [facility] neurology, continue work up here until then, neuro checks, echo. patient is likely to surpass 2 midnights given current medical state he is inpatient status Urinary Catheter Management Urinary Catheter Management Urethral: Cath placed during this visit: yes Urethral indwelling: No Insertion date: 03/14/23 Insertion time: 20:30
[2023-03-15] MEDS: FLUTICASONE PROPIONATE 50 MCG NASAL SPRAY 1 SPRAY NS (10:36)
[2023-03-15] MEDS: VERAPAMIL HCL ER 240 MG TABLET PO (10:37)
[2023-03-15] MEDS: TERAZOSIN HCL 1 MG CAPSULE 2 MG PO (10:37)
[2023-03-15] MEDS: OXYCODONE HCL 5 MG TABLET PO ×2 (10:37→18:04)
[2023-03-15] MEDS: ASPIRIN 81 MG TABLET.DR PO (10:38)
[2023-03-15] MEDS: CLOPIDOGREL BISULFATE 75 MG TABLET PO (10:38)
[2023-03-15] MEDS: LISINOPRIL 10 MG TABLET PO (10:38)
[2023-03-15] MEDS: CARBAMAZEPINE 200 MG TABLET 400 MG PO (10:40)
--- NOTE | 2023-03-15 12:23 | CM.NOTE ---
Rounds made with Dr. Phelan, teleneuro consult at time of rounding. Awaiting further recommendations from teleneuro and pt awaiting bed for transfer. Daniel from transfer team called and was connecting with trauma for possible transfer of pt d/t fall. Daniel called back and trauma denied pt, will continue as planned for transfer. No bed available at this time.
[2023-03-15] MEDS: PREGABALIN 100 MG CAPSULE PO (13:22)
[2023-03-15] MEDS: BACLOFEN 10 MG TABLET PO (13:22)
--- NOTE | 2023-03-15 17:06 | PC.NURSE ---
called report to amanda juarez at this time. superior machine operator picker @ [phone].
--- NOTE | 2023-03-15 17:23 | P.DS_ITS ---
DS: Providers Provider Date of admission: 03/15/23 12:41 Primary care physician: NU HERNANDEZ Admitting clinician: Lakshmi Phelan Consults: 03/14/23 11:05 Occupational Therapy Eval and Treat Routine Reason for consultation: weakness Has provider been notified: No Physical Therapy Eval and Treat Routine Reason for consultation: weakness Has provider been notified: No 03/14/23 12:22 Consult to Telestroke Routine Reason for consultation: weakness in lower ext, AMS Has provider been notified: No Discharging clinician: Lakshmi Phelan DS: Diagnosis Discharge Diagnosis (1) Altered mental status: Qualifiers: Altered mental status type: transient alteration of awareness Qualified Code(s): R40.4 - Transient alteration of awareness (2) Generalized weakness: (3) COPD (chronic obstructive pulmonary disease): Qualifiers: COPD type: unspecified COPD Qualified Code(s): J44.9 - Chronic obstructive pulmonary disease, unspecified (4) Lumbar degenerative disc disease: (5) Hyperlipidemia: Qualifiers: Hyperlipidemia type: unspecified Qualified Code(s): E78.5 - Hyperlipidemia, unspecified (6) Neuropathy: DS: Summary Hospital Course Hospital Course: please see progress note dated 03/15/23 Time Spent with Patient Time attestation: Total time spent providing and/or coordinating discharge services: Exam Narrative Exam Narrative: please see progress note dated 03/15/23 Constitutional Vital Signs, click to edit/add: Last Vital Signs Temp 98.9 F 03/15/23 13:28 Pulse 67 03/15/23 14:00 Resp 18 03/15/23 13:28 BP 154/75 H 03/15/23 13:28 Pulse Ox 94 L 03/15/23 14:00 O2 Del Method Nasal Cannula 03/15/23 13:28 O2 Flow Rate 2 03/15/23 13:28 DS: Data Data Completed and Pending Labs on day of discharge: Labs from last 24 hours 03/15/23 04:28 WBC 6.5 RBC 3.65 L Hgb 10.5 L Hct 34.4 L MCV 94.2 H MCH 28.8 MCHC 30.5 RDW 13.0 Plt Count 273 MPV 9.3 L Neut % (Auto) 51.1 Lymph % (Auto) 31.5 [place] % (Auto) 10.9 Eos % (Auto) 5.4 Baso % (Auto) 0.9 Neut # (Auto) 3.4 Lymph # (Auto) 2.1 [place] # (Auto) 0.7 Eos # (Auto) 0.4 Baso # (Auto) 0.1 Abs Immat Gran (auto) 0.01 Imm/Tot Granulo (auto) 0.2 Sodium 139 Potassium 4.5 Chloride 106 Carbon Dioxide 25.4 Anion Gap 12.1 BUN 19.0 H Creatinine 0.90 Est GFR ( Amer) >60 Est GFR (Non-Af Amer) >60 BUN/Creatinine Ratio 21.1 Glucose 90 Calcium 9.1 Total Bilirubin 0.3 AST 30 ALT 19 Alkaline Phosphatase 71 Total Protein 6.6 Albumin 2.8 L Globulin 3.8 Albumin/Globulin Ratio 0.7 Discharge Plan Discharge Disposition: [facility] Condition: Fair Discharge location: Transfer to [facility] Dr. Carrillo
== END 2023-03-15 18:23 | disposition short-term general hospital (02) | DRG 884 ==
LOC: ER 10:55 → MS 11:01
PROVIDERS: Admitting Provider Family Medicine; Emergency Provider Emergency Medicine; PCP Family Medicine; Visit Provider Family Medicine
DX: R40.4 Transient alteration of awareness (principal); Z66 Do not resuscitate; R53.1 Weakness; R29.6 Repeated falls; J44.9 Chronic obstructive pulmonary disease, unspecified; M51.36 Other intervertebral disc degeneration, lumbar region; E78.5 Hyperlipidemia, unspecified; G62.9 Polyneuropathy, unspecified; M54.9 Dorsalgia, unspecified; G89.29 Other chronic pain; I10 Essential (primary) hypertension; F32.A Depression, unspecified; K21.9 Gastro-esophageal reflux disease without esophagitis; W05.0XXA Fall from non-moving wheelchair, initial encounter; Y93.9 Activity, unspecified; Y92.129 Unspecified place in nursing home as the place of occurrence of the external cause; Y99.9 Unspecified external cause status; Z86.73 Personal history of transient ischemic attack (TIA), and cerebral infarction without residual deficits; Z97.8 Presence of other specified devices; Z87.891 Personal history of nicotine dependence; Z79.02 Long term (current) use of antithrombotics/antiplatelets; Z79.82 Long term (current) use of aspirin; Z79.899 Other long term (current) drug therapy; Z91.041 Radiographic dye allergy status
CPT/HCPCS: 36415; 51702; 51798; 70450; 71045; 80048; 80053; 80061; 80307; 81001; 83036; 83735; 84443; 84484; 85025; 87804; 87811; 93005; 93306; 93880; 94761; 96361; 96374; 97161; 97165; 99285; G0378; J2270; Q3014

== ENCOUNTER 2023-06-17 19:53 | Inpatient (IN) | payer MEDICARE, OTHER, SELFPAY ==
[2023-06-17] VITALS (15 sets, daily range): BP systolic 107–173; BP diastolic 57–94; PULSE 76–89; TEMP 36.8; O2SAT 92–98; BMI 33.9
--- OUTSIDE RECORDS SUMMARY | 2023-06-17 20:05 | XMS_ITS | CCD ---
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 Care Reconciliation Analyst Name Role Phone CARLOS EVANS Admitting Unavailable CARLOS EVANS Attending Unavailable CAST, JENNY Referring Unavailable CAST, JENNY Primary Care Unavailable CARLOS EVANS Admitting Unavailable CARLOS EVANS Attending Unavailable CAST, JENNY Referring Unavailable CAST, JENNY Primary Care Unavailable Maira Shah Admitting Unavailable Maira Shah Attending Unavailable CAST, JENNY Referring Unavailable CAST, JENNY Primary Care Unavailable TONJA COBURN Admitting Unavailable TONJA COBURN Attending Unavailable CAST, JENNY Referring Unavailable CAST, JENNY Primary Care Unavailable JAYESH LAZO Admitting Unavailable HETRISH MCMULLEND Attending Unavailable CAST, JENNY Referring Unavailable CAST, JENNY Primary Care Unavailable CARLOS EVANS Admitting Unavailable CARLOS EVANS Attending Unavailable CAST, JENNY Referring Unavailable CAST, JENNY Primary Care Unavailable CARLOS EVANS Admitting Unavailable CARLOS EVANS Attending Unavailable CARLOS EVANS Referring Unavailable CAST, JENNY Primary Care Unavailable EBRAHEIM, KRISHNA Admitting Unavailable EBRAHEIM, KRISHNA Attending Unavailable CAST, JENNY Referring Unavailable CAST, JENNY Primary Care Unavailable NH Procedure Practitioner Unavailab SHELLI AmosIL Surgeon Unavailable NH Procedure Practitioner Unavailab JOANNA Rose Surgeon Unavailable HEMA VILCHIS Admitting Unavailable HEMA VILCHIS Attending Unavailable CAST, JENNY Referring Unavailable CAST, JENNY Primary Care Unavailable Cast, Jenny A Primary Care Provider AZUCENA EVANS Referring Unavailable CAST, JENNY A Primary Care Unavailable CRISTINALISAL Referring Unavailable CAST, JENNY A Primary Care Unavailable CAST, JENNY A Primary Care Unavailable AZUCENA EVANS Referring Unavailable JENNY CAST Primary Care Physician [phone] Cintia Alves Attending Unavailable Shawn, Cintia Hernandez Attending Unavailable Alves, Cintia L Attending Unavailable [...] Alves, Cintia L Referring Unavailable LETTY, DR EBCK Waddell Admitting Unavailabl e DAVID, DR JENNY Young Primary Care Unavailable LETTY, DR BECK Waddell Attending Unavailabl e LETTY, DR BECK Waddell Consulting Unavailabl e LALITO SHOOK Consulting Unavaila beau CAST, DR JENNY Young Primary Care Unavailable BRAYDEN ., SELENA ADAMS Consulting Unavailabl DAVON Shi Attending Unavailable DAVON ORTIZ Admitting Unavailable JESSA ADAM Consulting Unavailable CARA, DR KAY Baltazar Consulting Unavailable DAVID, DR [...] Unavailable SHAWN Banuelos, DR CINTIA Hernandez Attending Unavaila beau Banuelos, DR CINTIA Hernandez Consulting Unavaila JESSA Sena Consulting Unavailable Jenny Cast MD Primary Care Provider ROSA MARIA ROME Attending Unavailab CLEVELAND Mcdermott Referring Unavailable JENNY CAST Primary Care Unavailable TONJA COBURN Attending Unavailable JENNY CAST Referring Unavailable JENNY CAST Primary Care Unavailable JENNY CAST Primary Care Unavailable MACIE TREJO Consulting Unavailab le INPATIENT, TELENEUROLOGY Consulting Unavail SOUMYA Milligan Attending Unavailable C[place]AND LINDO T Referring Unavailable CAST, JENNY A Primary Care Unavailable SOUMYA MARIE Referring Unavailable CAST, JENNY A Primary Care Unavailable BOY LANE Attending Unavailable BOY LANE Referring Unavailable CAST, JENNY A Primary Care Unavailable FRANK ROSA MARIA Referring Unavailab le CAST, JENNY A Primary Care Unavailable ANA CANO Attending Unavailable CAST, JENNY A Primary Care Unavailable ANA CANO Attending Unavailable ANA CANO Referring Unavailable CAST, JENNY A Primary Care Unavailable CAST, JENNY A Referring Unavailable CAST, JENNY A Primary Care Unavailable CAST, JENNY A Referring Unavailable CAST, JENNY A Primary Care Unavailable CAST, JENNY A Primary Care Unavailable WOLFGANG SHABAZZ Attending Unavailable JANETTE FLORENTINO Admitting Unavailable CAST, JENNY A Referring Unavailable CAST, JENNY A Primary Care Unavailable ANJELICA LLAMAS Referring Unavailable CAST, JENNY A Primary Care Unavailable IWONA GRANADO Attending Unavailable CAST, JENNY A Primary Care Unavailable CLAUDIA, ELEANOR Admitting Unavailable CLAUDIA, ELEANOR Attending Unavailable CAST, JENNY A Primary Care Unavailable MASSIEL LAUGHLIN Consulting Unavailable ZENON ALANIZ Consulting Unavailable NEELA CARTER Consulting Unavailable RADHA, MOHAMMAD MAHMOUD Referring Unavail able CAST, JENNY A Primary Care Unavailable RADHA, MOHAMNAD MAHMOUD Referring Unavail able CAST, JENNY A Primary Care Unavailable HASEEN, TORIBIO Referring Unavailable HASEEN, TORBIIO Referring Unavailable CAST, JENNY A Primary Care Unavailable LYSSA CARDENAS Referring Unavailable CAST, JENNY A Primary Care Unavailable CAST, JENNY A Referring Unavailable CAST, JENNY A Primary Care Unavailable RADHA, MOHAMNAD MAHMOUD Referring Unavail able HASEEN, TORIBIO Referring Unavailable CAST, JENNY A Primary Care Unavailable RADHA, PRIYANKAD MAHMOUD Referring Unavail able ANGELAWA, CLEVELAND T Referring Unavailable CAST, JENNY A Primary Care Unavailable KRISTIN CLEVELAND T Referring Unavailable CAST, JENNY A Primary Care Unavailable CLAUDIA, ELEANOR Referring Unavailable CAST, JENNY A Primary Care Unavailable Allergies Allergy Classification Reported Allergen(s) Allergy Type Date of Onset Reaction(s) Facility (3 sources) Barium-Containin g Compounds Propensity to adverse reactions to drug 0 [place], [place] (5 sources) Contrast media; Translations: [contrast media (iodine-based)] Drug allergy Anaphylaxis (disorder) [facility] (1 source) Iodine (And Iodine Containting Drugs) Drug allergy (disorder) [facility] (1 source) Pneumovax 23 Drug allergy (disorder) 5 [facility] (9 sources) Sulfonamides (Antibiotic); Translations: [SULFA (SULFONAMIDE ANTIBIOTICS)] Propensity to adverse reactions to drug 0 [employer] (9 sources) Iodinated Contrast Media; Translations: [IODINATED CONTRAST MEDIA] Propensity to adverse reactions to drug 8 Anaphylaxis [facility] Medications Current Medications Medication Drug Class(es) Dates Sig (Normalized) Sig (Original) Acetaminophen (9 sources) Start: 12-03-2019 acetaminophen (TYLENOL) tablet 650 mg take 1 tablet by caio th every four hours as needed acetaminophen (TYLENOL) 500 mg tablet Indications: back pain Take 1 tablet (500 mg total) by mouth every 4 (four) hours as needed Indications: backache. 0 Active take 1 tablet by caio th every [...] Shortness of Breath, Starting Tue12/03/19 at 1717 aspirin 81 mg delayed release oral tablet (4 sources) Platelet Aggregation Inhibitor, Nonsteroidal Anti-inflammatory Drug take 1 tablet by mouth in the morning aspirin 81 mg Take 1 tablet (81 mg total) by mouth in the morning. 0 Active atorvastatin 40 mg oral tablet (14 sources) HMG-CoA Reductase Inhibitor Start: 04-22-2017 take 1 tablet by mouth in the morning atorvastatin (LIPITOR) 40 mg tablet Take 1 tablet (40 mg total) by mouth in the morning. 0 04/22/2017 Active baclofen 10 mg oral tablet (14 sources) gamma-Aminobutyric Acid-ergic Agonist Start: 12-14-2020 take 1 tablet by mouth three times daily as needed for muscle spasms baclofen (LIORESAL) 10 mg tablet Indications: muscle spasticity of spinal origin Take 1 tablet (10 mg total) by mouth 3 (three) times a day as needed Indications: muscle spasms caused by a spinal disease. 0 12/14/2020 Active Start: 12-03-2019 take 10 mg by mouth three times daily 10 mg, Oral, 3 TIMES DAILY, First dose on Tue12/03/19 at 2100 calcium chloride 0.0014 meq/ml / potassium chloride 0.004 meq/ml / sodium chloride 0.103 meq/ml / sodium lactate 0.028 meq/ml injectable solution (1 source) Start: 12-03-2019 lactated ringe rs infusion 12 hr carBAMazepine 400 mg extended release oral tablet (15 sources) Mood Stabilizer Start: 02-02-2023 End: 03-18-2024 take 1 tablet by mouth twice daily carBAMazepine XR (TEGretol XR) 400 mg 12 hr tablet take 1 tablet by mouth twice a day 180 tablet 1 05/02/2023 Active Start: 02-24-2021 carBAMazepine 100 mg Chew Tab [...] dextrose 5 % 50 mL IVPB (mini-bag) cephalexin 500 mg oral capsule (4 sources) Cephalosporin Antibacterial take 1 capsule by mouth three times daily CEPHalexin (KEFLEX) 500 mg capsule Take 1 capsule (500 mg total) by mouth 3 (three) times a day. 0 Active clopidogrel 75 mg oral tablet (12 sources) P2Y12 Platelet Inhibitor Start: 04-02-2022 take 1 tablet by mouth in the morning clopidogreL (PLAVIX) 75 mg tablet Take 1 tablet (75 mg total) by mouth in the morning. 30 tablet 11 04/02/2022 Active Start: 02-24-2021 take 75 mg by mouth once daily clopidogrel 75 mg, Oral, Daily, Refills(s) 0, Blood Thinner Start Date: 02/24/21 Status: Ordered take 1 tablet by caio th once daily clopidogrel (PLAVIX) 75 MG tablet Take 75 mg by mouth daily 0 Suspended dextromethorphan hydrobromide 1.33 mg/ml oral solution (1 source) Uncompetitive E-lftvqj-C-aspartate Receptor Antagonist, Sigma-1 Agonist dextromethorphan HBr (CREOMULSION ADULT FORMULA) 20 mg/15 mL solution Take by mouth. As needed for cough. 0 Active diazePAM 5 mg oral tablet (14 sources) Benzodiazepine Start : 04-16 take 1 tablet by mouth four times daily as needed diazePAM (VALIUM) 5 mg tablet Take 1 tablet (5 mg total) by mouth 4 (four) times a day as needed. 0 04/16/2022 Active Start: 02-24-2021 take 1 tablet by caio four times daily diazepam 5 mg Tab [...] DULoxetine 30 mg delayed release oral capsule (12 sources) Serotonin and Norepinephrine Reuptake Inhibitor Start: 02-24-2021 take 1 capsule by mouth once daily duloxetine 30 mg Cap-DR 30 mg, Oral, Daily, Refills(s) 0, Depression Start Date: 02/24/21 Status: Ordered Start: 12-18-2020 take 2 capsules by m outh in the morning DULoxetine (CYMBALTA) 30 mg capsule Take 2 capsules (60 mg total) by mouth in the morning. 0 12/18/2020 Active Start: 12-03-2019 take 1 capsule by mo tnh once daily 30 mg, Oral, DAILY, First [...] tablet (4 sources) Histamine-2 Receptor Antagonist Start: 01-11-2022 take 1 tablet by mouth twice daily famotidine 20 mg Tab 20 mg = 1 tab(s), Oral, BID, Refills(s) 0, Control of stomach acid Start Date: 02/24/21 Status: Ordered fluticasone (14 sources) Corticosteroid Start: 02-24-2021 take 50 ug by inhalation at bedtime fluticasone propionate 50 mcg, Inhalation, Bedtime, Refills(s) 0, Allergy symptoms Start Date: 02/24/21 Status: Ordered Start: 12-03-2019 take 1 spray(s) nasa l route once daily 1 spray, Each Nostril, DAILY, First dose on 12/03/19 at 1745 Start: 07-27-2019 take 1 spray(s) nasa l route in the morning fluticasone propionate (FLONASE) 50 mcg/actuation nasal spray Administer 1 spray into each nostril in the morning. 0 07/27/2019 Active take 1 spray(s) nasa l route once daily fluticasone (FLONASE) 50 MCG/ACT nasal spray 1 spray by Each Nostril route daily 0 Suspended furosemide 20 mg oral tablet (8 sources) Loop Diuretic Start: 02-24-2021 take 1 tablet by mouth once daily furosemide 20 mg Tab 20 mg = 1 tab(s), Oral, Daily, Refills(s) 0, diuretic/water pill Start Date: 02/24/21 Status: Ordered take 1 tablet by caio th once daily as needed furosemide (LASIX) 40 mg tablet Take 1 tablet (40 mg total) by mouth daily as needed. 0 Active 0.5 ml HYDROmorphone hydrochloride 1 mg/ml prefilled syringe (1 source) Opioid Agonist Start: 12-03-2019 HYDROmorphone HCl PF (DILAUDID) injection 1 mg HYDROMORPHONE HCL/PF (DILAUDID, PF, INJ) (6 sources) HYDROMORPHONE HC L/PF (DILAUDID, PF, INJ) by continuous epidural route. 0 Active 200 actuat levalbuterol 0.045 mg/actuat metered dose inhaler (10 sources) beta2-Adrenergi c Agonist Start: 03-25-2022 take 2 puff(s) by mouth every four hours levalbuterol (XOPENEX HFA) 45 mcg/actuation inhaler inhale 2 puffs by mouth and INTO THE LUNGS every 4 hours if needed for shortness of breath 0 03/25/2022 Active Start: 03-23-2022 End: 04-15-2023 take 1 dose by mouth four times daily levalbuterol (XOPENEX) 0.63 mg/3 mL nebulizer solution inhale orally contents of 1 vial in nebulizer four times a day 0 03/23/2022 04/15/2023 Discontinued take 3 mL by inhalat ion three times daily levalbuterol (XOPENEX) 0.63 mg/3 mL nebulizer solution Inhale 3 mL (0.63 mg total) by nebulization 3 (three) times a day. 0 Active lisinopril 5 mg oral tablet (10 sources) Angiotensin Converting Enzyme Inhibitor Start: 03-22-2023 take 1 tablet by mouth in the morning lisinopriL (PRINIVIL,ZESTRIL) 5 mg tablet Take 1 tablet (5 mg total) by mouth in the morning. 90 tablet 2 03/22/2023 Active Start: 05-12-2021 take 1 tablet by caio th once daily as needed lisinopril 10 mg Tab 10 mg = 1 tab(s), Oral, Daily, PRN Other (see comment), Refills(s) 0 Start Date: 05/12/21 Status: Ordered loratadine 10 mg oral tablet (13 sources) Start: 06-10-2016 take 1 tablet by mouth in the morning loratadine (CLARITIN) 10 mg tablet Take 1 tablet (10 mg total) by mouth in the morning. 0 06/10/2016 Active take 1 capsule by mouth once skyler ly loratadine (CLARITIN) 10 MG capsule Take 10 mg by mouth daily 0 Suspended 100 ml magnesium sulfate 10 mg/ml injection (1 source) Start: 12-03-2019 magnesium sulf ate 1 g in dextrose 5% 100 mL IVPB montelukast 10 mg oral tablet (14 sources) Leukotriene Receptor Antagonist Start: 04-28-2021 take 1 tablet by mouth once daily montelukast (SINGULAIR) 10 mg tablet Indications: Allergic rhinitis, unspecified seasonality, unspecified trigger Take 1 tablet (10 mg total) by mouth nightly. 30 tablet 10 10/01/2021 Active Start: 12-03-2019 take 10 mg by mouth once daily 10 mg, Oral, NIGHTLY, First dose on 12/03/19 at 2100 24 hr nicotine 0.875 mg/hr transdermal system (1 source) Cholinergic Nicotinic Agonist Start: 12-03-2019 nicotine (NICODERM CQ) 21 MG/24HR 1 patch 10 actuat olodaterol 0.0025 mg/actuat / tiotropium 0.0025 mg/actuat inhalation spray (6 sources) Anticholinergic, beta2-Adrenergic Agonist Start: 03-23-2022 STIOLTO RESPIMAT 2.5-2.5 mcg/actuation mist Inhale 2 puffs in the morning. 0 03/23/2022 Active omeprazole 40 mg delayed release oral capsule (11 sources) Proton Pump Inhibitor Start: 02-29-2016 omeprazole (PriLOSEC) 40 mg capsule Take 1 capsule (40 mg total) by mouth as needed. 0 02/29/2016 Active omeprazole 40 mg Cap-DR (2 sources) Start: 04-28-2021 omeprazole 40 mg Cap-DR 40 mg = 1 cap(s), Oral, Daily, Refills(s) 0, Control of stomach acid Start Date: 04/28/21 Status: Ordered oxyCODONE hydrochloride 5 mg oral tablet (11 sources) Opioid Agonist Start: 06-03-2022 take 1 tablet by mouth every eight hours as needed oxyCODONE (ROXICODONE) 5 mg immediate release tablet Take 1 tablet (5 mg total) by mouth every 8 (eight) hours as needed. 0 06/03/2022 Active Start: 02-24-2021 take 1 capsule by [facility] three times daily oxyCODONE 5 mg Cap 5 mg = 1 cap(s), Oral, TID, Refills(s) 0, Pain Start Date: 02/24/21 Status: Ordered Start: 12-03-2019 oxyCODONE (AMARI ICODONE) immediate release tablet 10 mg polyethylene glycol 3350 84060 mg powder for oral solution (1 source) Osmotic Laxative Start: 12-03-2019 polyethylene glycol (GLYCOLAX) packet 17 g Polyethylene Glycols (1 source) polyethylene gly col 3350 (MIRALAX ORAL) Take by mouth. Dissolve 1 capful in liquid and give by mouth daily. 0 Active Potassium Chloride (1 source) Start: 12-03-2019 potassium chlo ride (KLOR-CON M) extended release tablet 40 mEq pregabalin 100 mg oral capsule (14 sources) Start: 03-25-2022 take 1 capsule by mouth in the morning, then take 1 capsule by mouth at bedtime pregabalin (LYRICA) 100 mg capsule Take 1 capsule (100 mg total) by mouth in the morning and 1 capsule (100 mg total) before bedtime. 0 03/25/2022 Active Start: 02-24-2021 take 100 mg by mouth twice daily Lyrica 100 mg, Oral, BID, Refills(s) 0, Pain Start Date: 02/24/21 Status: Ordered Start: 12-03-2019 take 100 mg by mouth twice daily 100 mg, Oral, 2 TIMES DAILY, First [...] at 1745 terazosin 5 mg oral capsule (12 sources) alpha-Adrenergic Laura Start: 04-28-2021 take 1 capsule by mouth once daily at bedtime terazosin 5 mg Cap 5 mg = 1 cap(s), Oral, Once a day (at bedtime), # 30 cap(s), Refills(s) 6, Pharmacy: [facility], [address], cm, 04/28/21 12:55:00 EDT, Height/Length Dosing, 115, kg, 04/28/21 12:55:00 EDT, Weight Dosing Start Date: 04/28/21 Status: Ordered Start: 02-12-2016 take 1 capsule by mo uth once daily terazosin (HYTRIN) 2 mg capsule Indications: benign prostatic hyperplasia with lower urinary tract sx Take 1 capsule (2 mg total) by mouth nightly Indications: enlarged prostate with urination problem. 0 02/12/2016 Active 60 actuat tiotropium 0.0025 mg/actuat inhalation spray (2 sources) Anticholinergic Start: 05-12-2021 take 2 puff(s) by inhalation once daily as needed for wheezing Spiriva Respimat 60 ACT 2.5 mcg/inh inhalation aerosol = 2 puff(s), Inhalation, Daily, PRN Shortness of breath or wheezing, Refills(s) 0 Start Date: 05/12/21 Status: Ordered Completed/Discontinued Medications Medication Drug Class(es) Dates Sig (Normalized) Sig (Original) [id number] 200 actuat albuterol 0.09 mg/actuat metered dose inhaler (6 sources) beta2-Adrenergic Agonist Start: 10-01-2021 End: 04-15-2023 take 2 puff(s) by inhalation every six hours as needed for wheezing albuterol (PROVENTIL HFA;VENTOLIN HFA) 90 mcg/actuation inhaler Indications: Chronic obstructive pulmonary disease, unspecified COPD type (CMS-HCC) Inhale 2 puffs every 6 (six) hours as needed for wheezing. 18 g 10/01/2021 04/15/2023 Discontinued Start: 07-11-2018 End: 04-15-2023 take 2.5 mg by inhalation every four hours as needed for wheezing and chronic obstructive pulmonary disease and chronic obstructive pulmonary disease albuterol (PROVENTIL,VENTOLIN) 2.5 mg /3 mL (0.083 %) nebulizer solution Indications: Chronic obstructive pulmonary disease, unspecified COPD type (CMS-HCC) Inhale 3 mL (2.5 mg total) by nebulization every 4 (four) hours as needed for wheezing. 360 mL 11 07/11/2018 04/15/2023 Discontinued magnesium hydroxide 80 mg/ml oral suspension (6 sources) End: 04-15-2023 take 30 mL by mouth once daily as needed magnesium hydroxide (MILK OF MAGNESIA) 400 mg/5 mL suspension Take 30 mL by mouth nightly as needed. 0 04/15/2023 Discontinued Magnesium Hydrox nohelia (MILK OF MAGNESIA PO) Take by mouth every other day 0 Suspended Magnesium Hydrox nohelia (MILK OF MAGNESIA PO) Take by mouth every other day 0 Active polymyxin b 89190 unt/ml / trimethoprim 1 mg/ml ophthalmic solution (3 sources) Dihydrofolate Reductase Inhibitor Antibacterial, Polymyxin-class Antibacterial Start: 05-12-2022 End: 04-15-2023 trimethoprim-polymyxin B (POLYTRIM) 10,000 unit- 1 mg/mL drops predniSONE 20 mg oral tablet (3 sources) predniSONE (DELT ASONE) 20 MG tablet Take 20 mg by mouth as needed 0 Suspended verapamil hydrochloride 180 mg extended release oral tablet (15 sources) Calcium Channel Laura Start: 03-21-2023 End: 04-15-2023 take 1 tablet by mouth in the morning verapamil SR (CALAN-SR) 180 mg CR tablet Take 1 tablet (180 mg total) by mouth in the morning. 90 tablet 2 03/21/2023 04/15/2023 Discontinued Start: 12-03-2019 take 1 tablet by caio th once daily in the morning verapamil 240 mg ER Tab 240 mg = 1 tab(s), Oral, qAM, Refills(s) 0, Other (see comment) Start Date: 04/28/21 Status: Ordered take 1 capsule by mo uth once daily verapamil (VERELAN) 240 MG extended release capsule Take 240 mg by mouth nightly 0 Suspended Problems Active Problems Problem Classification Problem Date Documented Date Episodic/Chronic Abdominal hernia (1 source) Diaphragmatic hernia without obstruction or gangrene; Translations: [DIAPH HERNIA W/O OBST/GANGRENE] Onset: 04-20-2022 Episodic Acute cerebrovascular disease (11 sources) Cerebrovascular accident; Translations: [Cerebral infarction, unspecified] Onset: 06-25-2016 05-12-2021 Chronic Anxiety disorders (13 sources) Anxiety disorder, unspecified; Translations: [Mixed anxiety and depressive disorder] Onset: 06-25-2016 06-25-2016 Chronic Calculus of urinary tract (1 source) Personal history of urinary calculi; Translations: [PERSONAL HISTORY OF URINARY CALCULI] Onset: 04-20-2022 Episodic Cardiac dysrhythmias (1 source) Unspecified atrial fibrillation; Translations: [UNSPECIFIED ATRIAL FIBRILLATION] Onset: 04-20-2022 Chronic Chronic obstructive pulmonary disease and bronchiectasis (15 sources) Chronic obstructive lung disease; Translations: [Chronic obstructive pulmonary disease, unspecified] Onset: 03-31-2016 Resolved: 07-13-2018 12-03-2019 Chronic Congestive heart failure; nonhypertensive (14 sources) Heart failure; Translations: [Unspecified diastolic (congestive) heart failure] Onset: 10-02-2019 Resolved: 08-11-2020 02-04-2022 Chronic Disorders of lipid metabolism (12 sources) Hypercholesterolemia; Translations: [Pure hypercholesterolemia, unspecified] Onset: 02-04-2022 05-12-2021 Chronic Disorders of lipid metabolism (1 source) Pure hypercholesterolemia, unspecified; Translations: [PURE HYPERCHOLESTEROLEMIA, UNSPECIFIED] Onset: 11-18-2017 E Codes: Fall (1 source) Fall from bed, initial encounter; Translations: [FALL FROM BED INITIAL ENCOUNTER] Onset: 04-20-2022 Episodic Esophageal disorders (6 sources) Gastro-esophageal reflux disease without esophagitis; Translations: [Gastroesophageal reflux disease] Onset: 11-18-2017 05-12-2021 Chronic Essential hypertension (10 sources) Essential (primary) hypertension; Translations: [Hypertensive disorder] Onset: 11-18-2017 02-04-2022 Chronic External cause codes: Fall (4 sources) Unspecified fall, subsequent encounter; Translations: [Unspecified fall, initial encounter] Onset: 11-18-2017 Fluid and electrolyte disorders (1 source) Hypo-osmolality and hyponatremia; Translations: [Hypo-osmolality and hyponatremia] Onset: 06-11-2023 Episodic Fracture of neck of femur (hip) (3 sources) Fracture of unspecified part of neck of left femur, initial encounter for closed fracture; Translations: [Fracture of unspecified part of neck of unspecified femur, initial encounter for closed fracture] Onset: 06-11-2023 Episodic Fracture of upper limb (9 sources) Other intraarticular fracture of lower end of right radius, initial encounter for closed fracture; Translations: [Alves's fracture of right radius, subsequent encounter for closed fracture with routine healing] Onset: 11-18-2017 Episodic Genitourinary symptoms and ill-defined conditions (7 sources) Urge incontinence of urine; Translations: [Urge incontinence] Onset: 05-20-2021 02-24-2021 Chronic Headache; including migraine (7 sources) Headache; Translations: [Mixed headache] Onset: 10-10-2017 06-25-2020 Episodic Headache; including migraine (1 source) Headache; including migraine; Translations: [Headache, unspecified] Onset: 06-25-2020 Hyperplasia of prostate (9 sources) Benign prostatic hyperplasia without lower urinary tract symptoms; Translations: [Benign prostatic hypertrophy with outflow obstruction] Onset: 11-18-2017 02-24-2021 Chronic 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; Translations: [Unspecified sequelae of unspecified cerebrovascular disease] Onset: 10-10-2017 10-10-2017 Chronic Mood disorders (6 sources) Depressive disorder; Translations: [Depressive disorder] Onset: 10-10-2017 10-10-2017 Chronic Osteoarthritis (2 sources) Polyosteoarthritis, unspecified; Translations: [Unspecified osteoarthritis, unspecified site] Onset: 01-26-2018 Chronic Osteoporosis (1 source) Age-related osteoporosis without current pathological fracture; Translations: [AGE-RELATED OSTEOPOROSIS W/O CURRENT PATHOLOGICAL FRACTURE] Onset: 01-26-2018 Chronic Other aftercare (1 source) Other half-way (current) drug therapy; Translations: [OTH CERTIFICATION AND SELECTION SPECIALIST CURRENT DRUG THERAPY] Onset: 04-20-2022 Episodic Other aftercare (1 source) house director (current) use of antithrombotics/antip latelets; Translations: [CERTIFICATION AND SELECTION SPECIALIST ANTITHROMBOT/ANTIPLAT LETS] Onset: 04-20-2022 Episodic Other aftercare (1 source) correction (current) use of aspirin; Translations: [CERTIFICATION AND SELECTION SPECIALIST CURRENT USE OF ASPIRIN] Onset: 04-20-2022 Episodic Other circulatory disease (1 source) Personal history of transient ischemic attack (TIA), and cerebral infarction without residual deficits; Translations: [PERS HX TIA AND CI NO RESID DEFICIT] Onset: 03-01-2022 Episodic Other circulatory disease (6 sources) Orthostatic hypotension; Translations: [Orthostatic hypotension] 09-27-2016 Episodic Other connective tissue disease (1 source) Arthrodesis status; Translations: [ARTHRODESIS STATUS] Onset: 04-20-2022 Episodic Other diseases of kidney and ureters (1 source) Urinary tract obstruction; Translations: [Other obstructive and reflux uropathy] Onset: 06-09-2021 Episodic Other endocrine disorders (1 source) Disorder of adrenal gland; Translations: [Disorder of adrenal gland, unspecified] 05-03-2023 Chronic Other endocrine disorders (2 sources) Disorder of adrenal gland, unspecified; Translations: [Disorder of adrenal gland, unspecified] Onset: 05-03-2023 Chronic Other hereditary and degenerative nervous system conditions (1 source) Restless legs syndrome; Translations: [RESTLESS LEGS SYNDROME] Onset: 04-20-2022 Chronic Other hereditary and degenerative nervous system conditions (6 sources) Myoclonus; Translations: [Myoclonus] Onset: 10-10-2017 10-10-2017 Chronic Other hereditary and degenerative nervous system conditions (6 sources) Blepharospasm; 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] Onset: 03-01-2018 03-01-2018 Chronic Other hereditary and degenerative nervous system conditions (7 sources) Blepharospasm of right eyelid; 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] Onset: 09-27-2019 09-27-2019 Chronic Other hereditary and degenerative nervous system conditions (1 source) Isolated cervical dystonia; Translations: [Spasmodic torticollis] Onset: 05-12-2023 05-12-2023 Chronic Other hereditary and degenerative nervous system conditions (1 source) Spasmodic torticollis; Translations: [Spasmodic torticollis] Onset: 05-12-2023 Chronic Other hereditary and degenerative nervous system [...] Onset: 11-18-2017 Chronic Other nervous system disorders (6 sources) Disorder of brain; Translations: [Encephalopathy, unspecified] Onset: 03-16-2023 03-16-2023 Chronic Other nervous system disorders (1 source) Encephalopathy, unspecified; Translations: [Encephalopathy, unspecified] Onset: 03-15-2023 Chronic Other nervous system disorders (3 sources) Postoperative pain ; Translations: [Post-op pain] Onset: 12-03-2019 12-03-2019 Episodic Other nervous system disorders (7 sources) Hemifacial spasm; Translations: [Clonic hemifacial spasm, unspecified] Onset: 03-01-2018 03-06-2018 Episodic Other non-traumatic joint disorders (3 sources) Pain in left knee; Translations: [PAIN IN LEFT KNEE] Onset: 04-19-2022 Episodic Other nutritional; endocrine; and metabolic disorders (6 sources) Severe obesity; Translations: [Morbid (severe) obesity due to excess calories] Onset: 07-02-2020 07-02-2020 Chronic Other nutritional; endocrine; and metabolic disorders (6 sources) Body mass index 30+ - obesity; Translations: [Obesity, unspecified] Onset: 08-11-2020 08-11-2020 Chronic Other screening for suspected conditions (not mental disorders or infectious disease) (4 sources) Abnormal findings on diagnostic imaging of other specified body structures; Translations: [ABNORML FIND DX IMG OTH BODY STRUC] Onset: 11-09-2021 Chronic Other upper respiratory disease (6 sources) Allergic rhinitis; Translations: [Allergic rhinitis, unspecified] Onset: 07-13-2018 07-13-2018 Chronic Pulmonary heart disease (3 sources) Pulmonary [...] unspecified; Translations: [DISORIENTATION UNSPECIFIED] Onset: 01-24-2022 Episodic Spondylosis; intervertebral disc disorders; other back problems (6 sources) Cervical spondylosis; Translations: [Other spondylosis with myelopathy, cervical region] Onset: 03-10-2022 03-10-2022 Chronic Sprains and strains (2 sources) Sprain of unspecified site of left knee, initial encounter; Translations: [Sprain of unspecified ligament of left ankle, initial encounter] Onset: 04-20-2022 Episodic Superficial injury; contusion (1 source) Contusion of left upper arm, initial encounter; Translations: [CONTUSION LEFT UPPER ARM INITIAL] Onset: 04-20-2022 Episodic Transient cerebral ischemia (11 sources) Amaurosis fugax; Translations: [Transient cerebral ischemic attack, unspecified] Onset: 05-27-2017 05-14-2018 Chronic Unclassified (2 sources) DX Onset: 12-29-2017 Unclassified (3 sources) Patient encounter status; Translations: [Pain management] Onset: 12-03-2019 12-03-2019 Unclassified (3 sources) Injury of back of trunk 05-21-2021 Unclassified (1 source) New Patient Onset: 05-03-2023 Unclassified (1 source) Teleneurology Consult [facility] Onset: 03-14-2023 Unclassified (1 source) Hip Injury Onset: 06-11-2023 Unclassified (1 source) Accepting: Dr Gan Onset: 06-11-2023 Past or Other Problems Problem Classification Problem Date Documented Da te Episodic/Chronic Blindness and vision defects (6 sources) Visual disturbance; Translations: [Unspecified visual disturbance] Onset: 10-10-2017 10-10-2017 Episodic Cardiac dysrhythmias (6 sources) Tachycardia; Translations: [Tachycardia, unspecified] Onset: 09-28-2016 09-28-2016 Episodic Coronary atherosclerosis and other heart disease (6 sources) Preinfarction syndrome; Translations: [Unstable angina] Onset: 09-12-2019 Resolved: 08-11-2020 08-11-2020 Chronic Deficiency and other anemia (1 source) Anemia, unspecified; Translations: [Anemia, unspecified] Onset: 01-31-2023 Episodic Mood disorders (7 sources) Mood disorders; Translations: [DEPRESSION UNSPECIFIED] Onset: 03-16-2023 Resolved: 05-11-2023 03-16-2023 Other aftercare (2 sources) correction (current) use of anticoagulants; Translations: [[facility] (CURRENT) USE OF ANTICOAGULANTS] Onset: 11-15-2017 Episodic Other aftercare (1 source) Encounter for therapeutic drug level monitoring; Translations: [ENCOUNTER FOR THERAPEUTIC DRUG LEVEL MONITORING] Onset: 11-15-2017 Episodic Other circulatory disease (6 sources) History of transient ischemic attack; Translations: [Personal history of transient ischemic attack (TIA), and cerebral infarction without residual deficits] Onset: 01-13-2015 09-27-2016 Episodic Other connective tissue disease (1 source) Other specified soft tissue disorders; Translations: [OTHER SPECIFIED SOFT TISSUE DISORDERS] Onset: 12-01-2017 Episodic Other connective tissue disease (6 sources) Neuralgia; Translations: [Neuralgia and neuritis, unspecified] Onset: 10-10-2017 10-10-2017 Episodic Other connective tissue disease (6 sources) Muscle weakness; Translations: [Other symptoms and signs involving the musculoskeletal system] Onset: 11-03-2021 11-03-2021 Episodic Other eye disorders (1 source) Unspecified ptosis of left eyelid; Translations: [Unspecified ptosis of left eyelid] Onset: 03-15-2023 Episodic Other gastrointestinal disorders (6 sources) Dysphagia; Translations: [Dysphagia, unspecified] Onset: 07-13-2018 07-13-2018 Episodic Other lower respiratory disease (5 sources) Shortness of breath; Translations: [SHORTNESS OF BREATH] Onset: 11-11-2021 Episodic Other lower respiratory disease (12 sources) Dyspnea; Translations: [Shortness of breath] Onset: 09-28-2016 Resolved: 07-13-2018 09-28-2016 Episodic Other lower respiratory disease (6 sources) Chronic cough; Translations: [Chronic cough] Onset: 03-31-2016 Resolved: 08-02-2019 08-02-2019 Episodic Other lower respiratory disease (6 sources) Nodule of lung; Translations: [Solitary pulmonary nodule] Onset: 03-31-2016 Resolved: 08-02-2019 08-02-2019 Episodic Other lower respiratory disease (6 sources) Radiologic infiltrate of lung ; Translations: [Other nonspecific abnormal finding of lung field] Onset: 03-01-2019 Resolved: 08-02-2019 08-02-2019 Episodic Other male genital disorders (4 sources) Phimosis; Translations: [PHIMOSIS] Onset: 05-16-2021 Episodic Other nervous system disorders (6 sources) Dysarthria; Translations: [Dysarthria and anarthria] Onset: 06-25-2016 06-25-2016 Episodic Other nervous system disorders (6 sources) Tremor; Translations: [Tremor, unspecified] Onset: 11-03-2021 11-03-2021 Episodic Other nervous system disorders (1 source) Clonic hemifacial spasm, bilateral; Translations: [Clonic hemifacial spasm, bilateral] Onset: 03-06-2018 Episodic Other screening for suspected conditions (not mental disorders or infectious disease) (1 source) Encounter for screening for malignant neoplasm of prostate; Translations: [Encounter for screening for malignant neoplasm of prostate] Onset: 01-31-2023 Episodic Rehabilitation care; fitting of prostheses; and adjustment of devices (4 sources) Encounter for adjustment and management of infusion pump; Translations: [ENCOUNTER FOR ADJUSTMENT AND MANAGEMENT OF INFUSION PUMP] Onset: 07-25-2017 Episodic Screening and history of mental health and substance abuse codes (8 sources) Personal history of nicotine dependence; Translations: [Tobacco use and exposure - finding] Onset: 03-31-2016 06-25-2016 Episodic Spondylosis; intervertebral disc disorders; other back problems (20 sources) Radiculopathy, lumbosacral region; Translations: [Radiculopathy, lumbar region] Onset: 11-15-2016 11-15-2016 Episodic Syncope (9 sources) Syncope and collapse; Translations: [Syncope and collapse] Onset: 03-15-2023 Resolved: 11-15-2017 11-15-2017 Episodic Unclassified (4 sources) History of clinical finding in subject 05-12-2021 Results Test Name Value Interpretation Reference Range Facility CBC AND AUTO DIFFon 06-16-19 24 ABSOLUTE BASOPHIL 0.1 X10E9/L Normal 0.0-0.2 [facility] Comment on above: Performed By: #### P INR, 95612-9, THYR, CMP, 2777-1, 22201-5 #### [facility] ([id number]) [address], [address] [place] [address] ABSOLUTE NEUTROPHIL 4.4 X10E9/L Normal 1.5-6.6 [facility] Comment on above: Performed By: #### P INR, 52201-7, THYR, CMP, 2776-02, #### [facility] ([id number]) [address] [address] Basophils/100 WBC (Bld) 1.1 % Normal [facility] Comment on above: Performed By: #### P INR, 33437-3, THYR, CMP, 2776-02, #### [facility] ([id number]) [address] [address] Eosinophils (Bld) [#/Vol] 0.3 10*3/uL Normal 0.0-0.4 [facility] Comment on above: Performed By: #### P INR, 74150-6, THYR, CMP, 2776-02, #### [facility] ([id number]) [address] [address] Eosinophils/100 WBC (Bld) 4.3 % Normal [facility] Comment on above: Performed By: #### P INR, 73839-0, THYR, CMP, 2776-02, #### [facility] ([id number]) [address] [address] Erythrocyte distribution width (RBC) [Ratio] 13.1 % Normal 11.5-15.0 [facility] Comment on above: Performed By: #### P INR, 06291-8, THYR, CMP, 2776-02, #### [facility] ([id number]) [address] [address] Hematocrit (Bld) [Volume fraction] 22.7 % Low 39-49 [facility] Comment on above: Performed By: #### P INR, 80766-8, THYR, CMP, 2776-02, #### [facility] ([id number]) [address] [address] Hemoglobin (Bld) [Mass/Vol] 7.8 g/dL Low 13.0-17.0 [facility] Comment on above: Performed By: #### P INR, 50685-6, THYR, CMP, 2776-02, #### [facility] ([id number]) [address] [address] Lymphocytes (Bld) [#/Vol] 2.1 10*3/uL Normal 1.0-3.5 [facility] Comment on above: Performed By: #### P INR, 58764-5, THYR, CMP, 2776-02, #### [facility] ([id number]) [address] [address] Lymphocytes/100 WBC (Bld) 26.2 % Normal [facility] Comment on above: Performed By: #### P INR, 63071-9, THYR, CMP, 2776-02, #### [facility] ([id number]) [address] [address] MCH (RBC) [Entitic mass] 30.9 pg Normal 27-34 [facility] Comment on above: Performed By: #### P INR, 90883-5, THYR, CMP, 2776-02, #### [facility] ([id number]) [address] [address] MCHC (RBC) [Mass/Vol] 34.6 g/dL Normal 32-36 [facility] Comment on above: Performed By: #### P INR, 59520-4, THYR, CMP, 2776-02, #### [facility] ([id number]) [address] [address] [place] [address] MCV (RBC) [Entitic vol] 89 fL Normal 80-100 [facility] Comment on above: Performed By: #### P INR, 39004-3, THYR, CMP, 2776-, #### [facility] ([id number]) [address], [address] [place] [address] Monocytes (Bld) [#/Vol] 0.9 10*3/uL Normal 0-0.9 [facility] Comment on above: Performed By: #### P INR, 78326-2, THYR, CMP, 2776-, #### [facility] ([id number]) [address], [address] [place] [address] Monocytes/100 WBC (Bld) 12.0 % Normal [facility] Comment on above: Performed By: #### P INR, 26335-6, THYR, CMP, 2776-, #### [facility] ([id number]) [address], [address] [place] [address] Neutrophils/100 WBC (Bld) 56.4 % Normal [facility] Comment on above: Performed By: #### P INR, 51321-5, THYR, CMP, 2776-02, #### [facility] ([id number]) [address], [address] [place] [address] Platelet mean volume (Bld) [Entitic vol] 7.5 fL Normal 7-12 [facility] Comment on above: Performed By: #### P INR, 80997-2, THYR, CMP, 2776-, #### [facility] ([id number]) [address], [address] [place] [address] Platelets (Bld) [#/Vol] 316 10*3/uL Normal 150-450 [facility] Comment on above: Performed By: #### P INR, 29527-1, THYR, CMP, 2776-, #### [facility] ([id number]) [address], [address] [place] [address] RBC COUNT 2.54 X10E12/L Low 4.10-5.70 [facility] Comment on above: Performed By: #### P INR, 58854-0, THYR, CMP, 2776-, #### [facility] ([id number]) [address], [address] [place] [address] WBC (Bld) [#/Vol] 7.9 10*3/uL Normal 4.0-11.0 [facility] Comment on above: Performed By: #### P INR, 71314-1, THYR, CMP, 2776-, #### [facility] ([id number]) [address], [address] [place] [address] COMPREHENSIVE METABOLIC PANE Reagan 06-16-2023 Albumin [Mass/Vol] 3.3 g/dL Normal 3.2-5.3 [facility] Comment on above: Performed By: #### P INR, 89833-7, THYR, CMP, 2776-, #### [facility] ([id number]) [address], [address] [place] [address] ALP [Catalytic activity/Vol] 56 U/L Normal 39-130 [facility] Comment on above: Performed By: #### P INR, 56247-9, THYR, CMP, 2776-, #### [facility] ([id number]) [address], [address] [place] [address] ALT [Catalytic activity/Vol] 23 U/L Normal 0-40 [facility] Comment on above: Performed By: #### P INR, 46044-9, THYR, CMP, 2776-, #### [facility] ([id number]) [address], [address] [place] [address] Anion gap [Moles/Vol] 7 mmol/L Normal 5-15 [facility] Comment on above: Performed By: #### P INR, 84120-0, THYR, CMP, 2776-02, #### [facility] ([id number]) [address], [address] [place] [address] AST [Catalytic activity/Vol] 35 U/L Normal 0-41 [facility] Comment on above: Performed By: #### P INR, 12293-6, THYR, CMP, 2776-02, #### [facility] ([id number]) [address], [address] [place] [address] Bilirubin [Mass/Vol] 0.4 mg/dL Normal 0.3-1.2 [facility] Comment on above: Performed By: #### P INR, 58099-8, THYR, CMP, 2776-02, #### [facility] ([id number]) [address], [address] [place] [address] Calcium [Mass/Vol] 9.1 mg/dL Normal 8.5-10.5 [facility] Comment on above: Performed By: #### P INR, 50528-0, THYR, CMP, 2776-02, #### [facility] ([id number]) [address], [address] [place] [address] Chloride [Moles/Vol] 101 mmol/L Normal 98-109 [facility] Comment on above: Performed By: #### P INR, 16443-0, THYR, CMP, 2776-02, #### [facility] ([id number]) [address], [address] [place] [address] CO2 [Moles/Vol] 28 mmol/L Normal 22-32 [facility] Comment on above: Performed By: #### P INR, 11342-5, THYR, CMP, 2776-02, #### [facility] ([id number]) [address], [address] [place] [address] Creatinine [Mass/Vol] 0.82 mg/dL Normal 0.60-1.30 [facility] Comment on above: Result Comment: METH OD TRACEABLE TO IDMS STANDARD Performed By: #### P INR, 39390-0, THYR, CMP, 2776-02, #### [facility] ([id number]) [address], [address] [place] [address] eGFR (CKD-EPI) NON-RACE DEPENDENT >90 Normal >59 [facility] Comment on above: Result Comment: Reported eGFR is based on the CKD-EPI 2020 equation that does not use a race coefficient. Performed By: #### P INR, 98945-6, THYR, CMP, 2776-02, #### [facility] ([id number]) [address], [address] [place] [address] Glucose [Mass/Vol] 127 mg/dL High 65-99 [facility] Comment on above: Performed By: #### P INR, 70517-4, THYR, CMP, 2776-02, #### [facility] ([id number]) [address] [address] [place] [address] Potassium [Moles/Vol] 4.6 mmol/L Normal 3.5-5.0 [facility] Comment on above: Performed By: #### P INR, 13006-3, THYR, CMP, 2776-02, #### [facility] ([id number]) [address] [address] [place] [address] Protein [Mass/Vol] 5.9 g/dL Low 6.0-8.0 [facility] Comment on above: Performed By: #### P INR, 62745-7, THYR, CMP, 2776-02, #### [facility] ([id number]) [address], [address] [place] [address] Sodium [Moles/Vol] 136 mmol/L Normal 134-146 [facility] Comment on above: Performed By: #### P INR, 61974-6, THYR, CMP, 2776-02, #### [facility] ([id number]) [address], [address] [place] [address] Urea nitrogen [Mass/Vol] 23 mg/dL Normal 5-27 [facility] Comment on above: Performed By: #### P INR, 54241-1, THYR, CMP, 2776-02, #### [facility] ([id number]) [address], [address] [place] [address] MAGNESIUMon 06-16-2023 Magnesium [Mass/Vol] 1.8 mg/dL Normal 1.8-2.6 [facility] Comment on above: Performed By: #### P INR, 42630-8, THYR, CMP, 2776-02, #### [facility] ([id number]) [address], [address] [place] [address] BASIC METABOLIC PANLon 06-13 Anion gap [Moles/Vol] 7 mmol/L Normal 5-15 [facility] Comment on above: Performed By: #### P INR, 58543-2, THYR, CMP, 2776-02, #### [facility] ([id number]) [address], [address] [place] [address] Calcium [Mass/Vol] 8.6 mg/dL Normal 8.5-10.5 [facility] Comment on above: Performed By: #### P INR, 37981-3, THYR, CMP, 2776-02, #### [facility] ([id number]) [address], [address] [place] [address] Chloride [Moles/Vol] 100 mmol/L Normal 98-109 [facility] Comment on above: Performed By: #### P INR, 34499-8, THYR, CMP, 2776-02, #### [facility] ([id number]) [address], [address] [place] [address] CO2 [Moles/Vol] 28 mmol/L Normal 22-32 [facility] Comment on above: Performed By: #### P INR, 52103-3, THYR, CMP, 2776-02, #### [facility] ([id number]) [address], [facility] [address] [place] [address] Creatinine [Mass/Vol] 0.88 mg/dL Normal 0.60-1.30 [facility] Comment on above: Result Comment: METH OD TRACEABLE TO IDMS STANDARD Performed By: #### P INR, 38742-0, THYR, CMP, 2776-02, #### [facility] ([id number]) [address], [facility] [address] [place] [address] eGFR (CKD-EPI) NON-RACE DEPENDENT >90 Normal >59 [facility] Comment on above: Result Comment: Reported eGFR is based on the CKD-EPI 2020 equation that does not use a race coefficient. Performed By: #### P INR, 88085-6, THYR, CMP, 2776-02, #### [facility] ([id number]) [address] [address] [place] [address] Glucose [Mass/Vol] 110 mg/dL High 65-99 [facility] Comment on above: Performed By: #### P INR, 00291-1, THYR, CMP, 2776-02, #### [facility] ([id number]) [address], [address] [place] [address] Potassium [Moles/Vol] 4.2 mmol/L Normal 3.5-5.0 [facility] Comment on above: Performed By: #### P INR, 56894-2, THYR, CMP, 2776-02, #### [facility] ([id number]) [address], [address] [place] [address] Sodium [Moles/Vol] 135 mmol/L Normal 134-146 [facility] Comment on above: Performed By: #### P INR, 44705-1, THYR, CMP, 2776-02, #### [facility] ([id number]) [address], [address] [place] [address] Urea nitrogen [Mass/Vol] 25 mg/dL Normal 5-27 [facility] Comment on above: Performed By: #### P INR, 15495-0, THYR, CMP, 2776-02, #### [facility] ([id number]) [address], [address] [place] [address] COMPLETE BLOOD COUNTon 06-13 Erythrocyte distribution width (RBC) [Ratio] 13.5 % Normal 11.5-15.0 [facility] Comment on above: Performed By: #### P INR, 04626-4, THYR, CMP, 2776-02, #### [facility] ([id number]) [address], [address] [place] [address] Hematocrit (Bld) [Volume fraction] 23.8 % Low 39-49 [facility] Comment on above: Performed By: #### P INR, 06941-1, THYR, CMP, 2776-02, #### [facility] ([id number]) [address], [address] [place] [address] Hemoglobin (Bld) [Mass/Vol] 8.2 g/dL Low 13.0-17.0 [facility] Comment on above: Performed By: #### P INR, 60301-0, THYR, CMP, 2776-, #### [facility] ([id number]) [address], [address] [place] [address] MCH (RBC) [Entitic mass] 30.8 pg Normal 27-34 [facility] Comment on above: Performed By: #### P INR, 33597-9, THYR, CMP, 2776-, #### [facility] ([id number]) [address], [address] [place] [address] MCHC (RBC) [Mass/Vol] 34.5 g/dL Normal 32-36 [facility] Comment on above: Performed By: #### P INR, 76874-8, THYR, CMP, 2776-, #### [facility] ([id number]) [address], [address] [place] [address] MCV (RBC) [Entitic vol] 89 fL Normal 80-100 [facility] Comment on above: Performed By: #### P INR, 41342-2, THYR, CMP, 2776-02, #### [facility] ([id number]) [address], [facility] [address] [place] [address] Platelet mean volume (Bld) [Entitic vol] 7.5 fL Normal 7-12 [facility] Comment on above: Performed By: #### P INR, 77590-0, THYR, CMP, 2776-, #### [facility] ([id number]) [address] [address] [place] [address] Platelets (Bld) [#/Vol] 234 10*3/uL Normal 150-450 [facility] Comment on above: Performed By: #### P INR, 70505-2, THYR, CMP, 2776-, #### [facility] ([id number]) [address], [address] [place] [address] RBC COUNT 2.67 X10E12/L Low 4.10-5.70 [facility] Comment on above: Performed By: #### P INR, 59462-4, THYR, CMP, 2776-02, #### [facility] ([id number]) [address], [address] [place] [address] WBC (Bld) [#/Vol] 7.4 10*3/uL Normal 4.0-11.0 [facility] Comment on above: Performed By: #### P INR, 67383-9, THYR, CMP, 2776-02, #### [facility] ([id number]) [address], [address] [place] [address] MAGNESIUMon 06-14-2023 Magnesium [Mass/Vol] 2.1 mg/dL Normal 1.8-2.6 [facility] Comment on above: Performed By: #### P INR, 65047-7, THYR, CMP, 2776-02, #### [facility] ([id number]) [address], [address] [place] [address] BASIC METABOLIC PANLon 06-12 Anion gap [Moles/Vol] 8 mmol/L Normal 5-15 [facility] Comment on above: Performed By: #### P INR, 95233-1, THYR, CMP, 2776-02, #### [facility] ([id number]) [address], [address] [place] [address] Calcium [Mass/Vol] 8.1 mg/dL Low 8.5-10.5 [facility] Comment on above: Performed By: #### P INR, 37507-4, THYR, CMP, 2776-02, #### [facility] ([id number]) [address], [address] [place] [address] Chloride [Moles/Vol] 101 mmol/L Normal 98-109 [facility] Comment on above: Performed By: #### P INR, 93765-7, THYR, CMP, 2776-02, #### [facility] ([id number]) [address], [address] [place] [address] CO2 [Moles/Vol] 25 mmol/L Normal 22-32 [facility] Comment on above: Performed By: #### P INR, 85993-0, THYR, CMP, 2776-, #### [facility] ([id number]) [address], [address] [place] [address] Creatinine [Mass/Vol] 1.07 mg/dL Normal 0.60-1.30 [facility] Comment on above: Result Comment: METH OD TRACEABLE TO IDMS STANDARD Performed By: #### P INR, 90708-9, THYR, CMP, 2776-02, #### [facility] ([id number]) [address], [address] [place] [address] GFR/1.73 sq M.predicted among non-blacks MDRD (S/P/Bld) [Vol rate/Area] 73 mL/min/{1.73_m2} Normal >59 [facility] Comment on above: Result Comment: Reported eGFR is based on the CKD-EPI 2020 equation that does not use a race coefficient. Performed By: #### P INR, 02118-9, THYR, CMP, 2776-, #### [facility] ([id number]) [address], [address] [place] [address] Glucose [Mass/Vol] 108 mg/dL High 65-99 [facility] Comment on above: Performed By: #### P INR, 33263-6, THYR, CMP, 2776-, #### [facility] ([id number]) [address], [address] [place] [address] Potassium [Moles/Vol] 4.2 mmol/L Normal 3.5-5.0 [facility] Comment on above: Performed By: #### P INR, 76040-0, THYR, CMP, 2776-02, #### [facility] ([id number]) [address], [address] [place] [address] Sodium [Moles/Vol] 134 mmol/L Normal 134-146 [facility] Comment on above: Performed By: #### P INR, 43722-5, THYR, CMP, 2776-02, #### [facility] ([id number]) [address] [address] [place] [address] Urea nitrogen [Mass/Vol] 23 mg/dL Normal 5-27 [facility] Comment on above: Performed By: #### P INR, 80960-7, THYR, CMP, 2776-02, #### [facility] ([id number]) [address] [address] [place] [address] COMPLETE BLOOD COUNTon 06-12 Erythrocyte distribution width (RBC) [Ratio] 13.4 % Normal 11.5-15.0 [facility] Comment on above: Performed By: #### P INR, 01389-8, THYR, CMP, 2776-02, #### [facility] ([id number]) [address] [address] [place] [address] Hematocrit (Bld) [Volume fraction] 22.3 % Low 39-49 [facility] Comment on above: Performed By: #### P INR, 58881-0, THYR, CMP, 2776-02, #### [facility] ([id number]) [address] [place] [address] Hemoglobin (Bld) [Mass/Vol] 7.7 g/dL Low 13.0-17.0 [facility] Comment on above: Performed By: #### P INR, 71050-7, THYR, CMP, 2776-02, #### [facility] ([id number]) [address], [address] [place] [address] MCH (RBC) [Entitic mass] 30.8 pg Normal 27-34 [facility] Comment on above: Performed By: #### P INR, 34400-6, THYR, CMP, 2776-02, #### [facility] ([id number]) [address], [facility] [address] [place] [address] MCHC (RBC) [Mass/Vol] 34.5 g/dL Normal 32-36 [facility] Comment on above: Performed By: #### P INR, 94900-1, THYR, CMP, 2776-02, #### [facility] ([id number]) [address], [address] [place] [address] MCV (RBC) [Entitic vol] 89 fL Normal 80-100 [facility] Comment on above: Performed By: #### P INR, 60990-8, THYR, CMP, 2776-02, #### [facility] ([id number]) [address], [address] [place] [address] Platelet mean volume (Bld) [Entitic vol] 7.6 fL Normal 7-12 [facility] Comment on above: Performed By: #### P INR, 64051-7, THYR, CMP, 2776-02, #### [facility] ([id number]) [address], [address] [place] [address] Platelets (Bld) [#/Vol] 263 10*3/uL Normal 150-450 [facility] Comment on above: Performed By: #### P INR, 34258-9, THYR, CMP, 2776-02, #### [facility] ([id number]) [address], [address] [place] [address] RBC COUNT 2.50 X10E12/L Low 4.10-5.70 [facility] Comment on above: Performed By: #### P INR, 39946-4, THYR, CMP, 2776-02, #### [facility] ([id number]) [address], [address] [place] [address] WBC (Bld) [#/Vol] 7.4 10*3/uL Normal 4.0-11.0 [facility] Comment on above: Performed By: #### P INR, 25000-7, THYR, CMP, 2776-02, #### [facility] ([id number]) [address] [place] [address] HGB AND HCTon 06-13-2023 Hematocrit (Bld) [Volume fraction] 23.8 % Low 39-49 [facility] Comment on above: Performed By: #### P INR, 70564-0, THYR, CMP, 2776-02, #### [facility] ([id number]) [address], [address] [place] [address] Hemoglobin (Bld) [Mass/Vol] 8.2 g/dL Low 13.0-17.0 [facility] Comment on above: Performed By: #### P INR, 61826-5, THYR, CMP, 2776-02, #### [facility] ([id number]) [address], [address] [place] [address] MAGNESIUMon 06-13-2023 Magnesium [Mass/Vol] 2.2 mg/dL Normal 1.8-2.6 [facility] Comment on above: Performed By: #### P INR, 15848-6, THYR, CMP, 2776-02, #### [facility] ([id number]) [address], [address] [place] [address] BASIC METABOLIC PANLon 06-11 Anion gap [Moles/Vol] 8 mmol/L Normal 5-15 [facility] Comment on above: Performed By: #### P INR, 96029-4, THYR, CMP, 2776-02, #### [facility] ([id number]) [address], [address] [place] [address] Calcium [Mass/Vol] 8.8 mg/dL Normal 8.5-10.5 [facility] Comment on above: Performed By: #### P INR, 48051-2, THYR, CMP, 2776-02, #### [facility] ([id number]) [address], [address] [place] [address] Chloride [Moles/Vol] 97 mmol/L Low 98-109 [facility] Comment on above: Performed By: #### P INR, 39494-5, THYR, CMP, 2776-02, #### [facility] ([id number]) [address], [address] [place] [address] CO2 [Moles/Vol] 27 mmol/L Normal 22-32 [facility] Comment on above: Performed By: #### P INR, 48689-7, THYR, CMP, 2776-02, #### [facility] ([id number]) [address], [address] [place] [address] Creatinine [Mass/Vol] 0.71 mg/dL Normal 0.60-1.30 [facility] Comment on above: Result Comment: METH OD TRACEABLE TO IDMS STANDARD Performed By: #### P INR, 84270-5, THYR, CMP, 2776-02, #### [facility] ([id number]) [address], [address] [place] [address] eGFR (CKD-EPI) NON-RACE DEPENDENT >90 Normal >59 [facility] Comment on above: Result Comment: Reported eGFR is based on the CKD-EPI 2020 equation that does not use a race coefficient. Performed By: #### P INR, 81825-4, THYR, CMP, 2776-02, #### [facility] ([id number]) [address], [facility] [address] [place] [address] Glucose [Mass/Vol] 126 mg/dL High 65-99 [facility] Comment on above: Performed By: #### P INR, 71263-2, THYR, CMP, 2776-02, #### [facility] ([id number]) [address] [address] [place] [address] Potassium [Moles/Vol] 4.1 mmol/L Normal 3.5-5.0 [facility] Comment on above: Performed By: #### P INR, 56612-6, THYR, CMP, 2776-02, #### [facility] ([id number]) [address] [address] [place] [address] Sodium [Moles/Vol] 132 mmol/L Low 134-146 [facility] Comment on above: Performed By: #### P INR, 37233-4, THYR, CMP, 2776-02, #### [facility] ([id number]) [address] [address] [place] [address] Urea nitrogen [Mass/Vol] 13 mg/dL Normal 5-27 [facility] Comment on above: Performed By: #### P INR, 34231-8, THYR, CMP, 2776-02, #### [facility] ([id number]) [address] [address] [place] [address] COMPLETE BLOOD COUNTon 06-11 Erythrocyte distribution width (RBC) [Ratio] 13.4 % Normal 11.5-15.0 [facility] Comment on above: Performed By: #### P INR, 27205-3, THYR, CMP, 2776-02, #### [facility] ([id number]) [address], [address] [place] [address] Hematocrit (Bld) [Volume fraction] 32.3 % Low 39-49 [facility] Comment on above: Performed By: #### P INR, 91967-4, THYR, CMP, 2776-02, #### [facility] ([id number]) [address], [facility] [address] [place] [address] Hemoglobin (Bld) [Mass/Vol] 11.1 g/dL Low 13.0-17.0 [facility] Comment on above: Performed By: #### P INR, 28050-5, THYR, CMP, 2776-02, #### [facility] ([id number]) [address], [facility] [address] [place] [address] MCH (RBC) [Entitic mass] 30.5 pg Normal 27-34 [facility] Comment on above: Performed By: #### P INR, 66411-0, THYR, CMP, 2776-02, #### [facility] ([id number]) [address], [address] [place] [address] MCHC (RBC) [Mass/Vol] 34.4 g/dL Normal 32-36 [facility] Comment on above: Performed By: #### P INR, 74944-3, THYR, CMP, 2776-02, #### [facility] ([id number]) [address], [facility] [address] [place] [address] MCV (RBC) [Entitic vol] 89 fL Normal 80-100 [facility] Comment on above: Performed By: #### P INR, 96325-3, THYR, CMP, 2776-02, #### [facility] ([id number]) [address], [address] [place] [address] Platelet mean volume (Bld) [Entitic vol] 7.5 fL Normal 7-12 [facility] Comment on above: Performed By: #### P INR, 43981-3, THYR, CMP, 2776-02, #### [facility] ([id number]) [address], [address] [place] [address] Platelets (Bld) [#/Vol] 351 10*3/uL Normal 150-450 [facility] Comment on above: Performed By: #### P INR, 65897-5, THYR, CMP, 2776-02, #### [facility] ([id number]) [address], [address] [place] [address] RBC COUNT 3.65 X10E12/L Low 4.10-5.70 [facility] Comment on above: Performed By: #### P INR, 24122-5, THYR, CMP, 2776-02, #### [facility] ([id number]) [address], [address] [place] [address] WBC (Bld) [#/Vol] 7.5 10*3/uL Normal 4.0-11.0 [facility] Comment on above: Performed By: #### P INR, 96094-2, THYR, CMP, 2776-02, #### [facility] ([id number]) [address], [address] [place] [address] MAGNESIUMon 06-12-2023 Magnesium [Mass/Vol] 1.9 mg/dL Normal 1.8-2.6 [facility] Comment on above: Performed By: #### P INR, 61536-1, THYR, CMP, 2777-1, 02586-0 #### [facility] ([id number]) [address], [address] [place] [address] XR HIP LT 2-3 VIEWS W OR WO PELVISon 06-12-2023 XR HIP LT 2-3 VIEWS W OR WO PELVIS XR HIP LT 2-3 VIEWS W OR WO PELVIS History: Postoperative left hip arthroplasty. Exam/Technique: Pelvis AP, AP, crosstable lateral of left] hip. Comparison: Findings: Osseus density: Normal. Left hip joint hemiarthroplasty with cemented femoral component appropriate alignment. Postsurgical changes in the soft tissues. IMPRESSION: No acute abnormality. Left total hip arthroplasty appropriate alignment. Finalized by Sylvester Anthony MD on 06/12/2023 6:[address] [facility] BASIC METABOLIC PANLon 06-10 Anion gap [Moles/Vol] 7 mmol/L Normal 5-15 [facility] Comment on above: Performed By: #### F EPR, 30123-0, 2857-1, 2276-4, 2284-8, 2131-10 #### [facility] ([id number]) [address], [address] [place] [address] Calcium [Mass/Vol] 8.9 mg/dL Normal 8.5-10.5 [facility] Comment on above: Performed By: #### F EPR, 27206-3, 2857-1, 2276-4, 2284-8, 2131-10 #### [facility] ([id number]) [address], [address] [place] [address] Chloride [Moles/Vol] 94 mmol/L Low 98-109 [facility] Comment on above: Performed By: #### F EPR, 42633-0, 2857-1, 2276-4, 2284-8, 2131-10 #### [facility] ([id number]) [address], [address] [place] [address] CO2 [Moles/Vol] 26 mmol/L Normal 22-32 [facility] Comment on above: Performed By: #### F EPR, 27431-9, 2857-1, 2276-4, 2283-8, 2131-10 #### [facility] ([id number]) [address], [address] [place] [address] Creatinine [Mass/Vol] 0.89 mg/dL Normal 0.70-1.20 [facility] Comment on above: Result Comment: METH OD TRACEABLE TO IDMS STANDARD Performed By: #### F EPR, 95904-7, 2857-1, 6-4, 2283-8, 2131-10 #### [facility] ([id number]) [address], [facility] [address] [place] [address] GFR/1.73 sq M.predicted among non-blacks MDRD (S/P/Bld) [Vol rate/Area] 90 mL/min/{1.73_m2} Normal >59 [facility] Comment on above: Result Comment: Reported eGFR is based on the CKD-EPI 2020 equation that does not use a race coefficient. Performed By: #### F EPR, 95794-9, 2857-1, 2275-4, 2283-09, 2131-10 #### [facility] ([id number]) [address], [address] [place] [address] Glucose [Mass/Vol] 112 mg/dL High 65-99 [facility] Comment on above: Performed By: #### F EPR, 59029-5, 2857-1, 6-4, 2283-8, 2131-10 #### [facility] ([id number]) [address], [address] [place] [address] Potassium [Moles/Vol] 4.5 mmol/L Normal 3.5-5.0 [facility] Comment on above: Performed By: #### F EPR, 10374-1, 2857-1, 2276-4, 2283-8, 2131-10 #### [facility] ([id number]) [address], [facility] [address] [place] [address] Sodium [Moles/Vol] 127 mmol/L Low 134-146 [facility] Comment on above: Performed By: #### F EPR, 87054-7, 2857-1, 2276-4, 2283-8, 2131-10 #### [facility] ([id number]) [address], [facility] [address] [place] [address] Urea nitrogen [Mass/Vol] 18 mg/dL Normal 5-27 [facility] Comment on above: Performed By: #### F EPR, 33408-8, 2857-1, 2275-4, 2283-8, 2131-10 #### [facility] ([id number]) [address], [facility] [address] [place] [address] CBC AND AUTO DIFFon 06-11-19 24 ABSOLUTE BASOPHIL 0.1 X10E9/L Normal 0.0-0.2 [facility] Comment on above: Performed By: #### F EPR, 81462-0, 2857-1, 6-4, 2283-09, 2131-10 #### [facility] ([id number]) [address], [facility] [address] [place] [address] ABSOLUTE NEUTROPHIL 3.5 X10E9/L Normal 1.5-6.6 [facility] Comment on above: Performed By: #### F EPR, 88638-0, 2857-1, 2276-4, 2283-8, 2131-10 #### [facility] ([id number]) [address] [address] Basophils/100 WBC (Bld) 1.2 % Normal [facility] Comment on above: Performed By: #### F EPR, 65291-4, 2857-1, 2276-4, 2283-8, 2131-10 #### [facility] ([id number]) [address], [address] [place] [address] Eosinophils (Bld) [#/Vol] 0.3 10*3/uL Normal 0.0-0.4 [facility] Comment on above: Performed By: #### F EPR, 64669-1, 2857-1, 2276-4, 2284-8, 2131-10 #### [facility] ([id number]) [address], [facility] [address] [place] [address] Eosinophils/100 WBC (Bld) 4.4 % Normal [facility] Comment on above: Performed By: #### F EPR, 07419-4, 2857-1, 2276-4, 2283-8, 2131-10 #### [facility] ([id number]) [address], [facility] [address] [place] [address] Erythrocyte distribution width (RBC) [Ratio] 13.3 % Normal 11.5-15.0 [facility] Comment on above: Performed By: #### F EPR, 28979-4, 2857-1, 2276-4, 2283-8, 2131-10 #### [facility] ([id number]) [address], [facility] [address] [place] [address] Hematocrit (Bld) [Volume fraction] 31.1 % Low 39-49 [facility] Comment on above: Performed By: #### F EPR, 52975-1, 2857-1, 2276-4, 2283-8, 2131-10 #### [facility] ([id number]) [address], [facility] [address] [place] [address] Hemoglobin (Bld) [Mass/Vol] 10.9 g/dL Low 13.0-17.0 [facility] Comment on above: Performed By: #### F EPR, 79971-4, 2857-1, 2276-4, 2283-8, 2131-10 #### [facility] ([id number]) [address], [facility] [address] [place] [address] Lymphocytes (Bld) [#/Vol] 2.1 10*3/uL Normal 1.0-3.5 [facility] Comment on above: Performed By: #### F EPR, 62507-6, 2857-1, 2276-4, 2284-8, 2131-10 #### [facility] ([id number]) [address], [facility] [address] [place] [address] Lymphocytes/100 WBC (Bld) 31.2 % Normal [facility] Comment on above: Performed By: #### F EPR, 23733-2, 2857-1, 2276-4, 2283-8, 2131-10 #### [facility] ([id number]) [address] [address] MCH (RBC) [Entitic mass] 30.8 pg Normal 27-34 [facility] Comment on above: Performed By: #### F EPR, 26637-2, 2857-1, 2276-4, 2283-8, 2131-10 #### [facility] ([id number]) [address] [address] MCHC (RBC) [Mass/Vol] 35.1 g/dL Normal 32-36 [facility] Comment on above: Performed By: #### F EPR, 47442-7, 2857-1, 2276-4, 2283-8, 2131-10 #### [facility] ([id number]) [address] [address] MCV (RBC) [Entitic vol] 88 fL Normal 80-100 [facility] Comment on above: Performed By: #### F EPR, 21016-7, 2857-1, 2276-4, 2284-8, 2131-10 #### [facility] ([id number]) [address] [address] [place] [address] Monocytes (Bld) [#/Vol] 0.7 10*3/uL Normal 0-0.9 [facility] Comment on above: Performed By: #### F EPR, 84453-5, 2857-1, 2276-4, 2284-8, 2131-10 #### [facility] ([id number]) [address], [facility] [address] [place] [address] Monocytes/100 WBC (Bld) 10.1 % Normal [facility] Comment on above: Performed By: #### F EPR, 69567-4, 2857-1, 2276-4, 2283-8, 2131-10 #### [facility] ([id number]) [address], [facility] [address] [place] [address] Neutrophils/100 WBC (Bld) 53.1 % Normal [facility] Comment on above: Performed By: #### F EPR, 12226-6, 2857-1, 2276-4, 2283-8, 2131-10 #### [facility] ([id number]) [address], [facility] [address] [place] [address] Platelet mean volume (Bld) [Entitic vol] 7.0 fL Normal 7-12 [facility] Comment on above: Performed By: #### F EPR, 94082-3, 2857-1, 2276-4, 2283-8, 2131-10 #### [facility] ([id number]) [address] [place] [address] Platelets (Bld) [#/Vol] 348 10*3/uL Normal 150-450 [facility] Comment on above: Performed By: #### F EPR, 38976-5, 2857-1, 2276-4, 2284-8, 2131-10 #### [facility] ([id number]) [address], [address] [place] [address] RBC COUNT 3.53 X10E12/L Low 4.10-5.70 [facility] Comment on above: Performed By: #### F EPR, 66033-6, 2857-1, 2276-4, 4-8, 2131-10 #### [facility] ([id number]) [address], [address] [place] [address] WBC (Bld) [#/Vol] 6.6 10*3/uL Normal 4.0-11.0 [facility] Comment on above: Performed By: #### F EPR, 35410-5, 2857-1, 2276-4, 2283-8, 2131-10 #### [facility] ([id number]) [address] [place] [address] IRON PROFILEon 06-11-2023 Iron [Mass/Vol] 48 ug/dL Low 50-212 [facility] Comment on above: Performed By: #### P INR, 03348-6, THYR, CMP, 7-, #### [facility] ([id number]) [address] [place] [address] IRON BINDING 295 ug/dL Normal 250-425 [facility] Comment on above: Performed By: #### P INR, 26592-4, THYR, CMP, 2777-, #### [facility] ([id number]) [address], [address] [place] [address] IRON SATURATION 16 % SATURATION Low 20-50 [facility] Comment on above: Performed By: #### P INR, 29022-7, THYR, CMP, 7-, #### [facility] ([id number]) [address], [address] [place] [address] Natriuretic peptide B [Mass/ Vol]on 06-11-2023 Natriuretic peptide B (Bld) [Mass/Vol] 68 pg/mL Normal <100.0 [facility] Comment on above: Performed By: #### P INR, 86967-6, THYR, CMP, 2776-02, #### [facility] ([id number]) [address], [address] [place] [address] Osmolality (U) [Osmolality]o n 06-11-2023 URINE OSMOLALITY 458 mOsm/kg H2 Normal 300-1300 [facility] Comment on above: Performed By: #### P INR, 24273-2, THYR, CMP, 2776-02, #### [facility] ([id number]) [address], [address] [place] [address] Prealbumin IA [Mass/Vol]on 0 06-11-2023 Prealbumin [Mass/Vol] 24 mg/dL Normal 18-45 [facility] Comment on above: Performed By: #### F EPR, 36568-9, 2857-1, 2276-4, 2284-8, 2131-10 #### [facility] ([id number]) [address], [address] [place] [address] SODIUMon 06-11-2023 Sodium [Moles/Vol] 130 mmol/L Low 134-146 [facility] Comment on above: Performed By: #### P INR, 99835-6, THYR, CMP, 2776-02, #### [facility] ([id number]) [address], [address] [place] [address] URINE SODIUM,RANDOMon 2023 Sodium (U) [Moles/Vol] 84 mmol/L Normal [facility] Comment on above: Performed By: #### P INR, 69318-1, THYR, CMP, 2776-02, #### [facility] ([id number]) [address], [address] [place] [address] Vitamin D+Metabolites [Mass/ Vol]on 04-27-2024 VITAMIN D 25 HYD TOT 19.2 ng/mL Low 30-100 [facility] Comment on above: Result Comment: Vitamin D status 25 [place] Vitamin D Deficiency <20 ng/mL Insufficiency 20-29 ng/mL Sufficiency 30-100 ng/mL Toxicity >100 ng/mL NOTE: A pediatric reference range has not been established by the marker assembler of this kit. The [employer] recommends a Vitamin D level of = or >20ng/mL in infants and children. Performed By: #### F EPR, 83432-1, 2857-1, 2276-4, 2284-8, 2132-9 #### [facility] ([id number]) [address], [address] [place] [address] XR ANKLE LT MIN 3 VWSon 05-16 XR ANKLE LT MIN 3 VWS XR ANKLE LT MIN 3 VWS XR ANKLE LT MIN 3 VWS HISTORY: Fall, ankle pain. COMPARISON: 01/31/2019. IMPRESSION: 1. Remote appearing remodeling distal fibular shaft possibly from remote fracture, no appreciable acute fracture or dislocation. 2. Bimalleolar soft tissue swelling. Finalized by Molina Benitez MD on 06/11/2023 9:[address] [facility] XR CHEST 1 VWon 06-11-2023 XR CHEST 1 VW XR CHEST 1 VW XR CHEST 1 VW 06/11/2023 6:30 AM INDICATION: hip fracture COMPARISON: Priors dating back to 01/22/2020 TECHNIQUE: Supine view of the chest was obtained FINDINGS: The lungs are clear. No pneumothorax within the limitations of the supine technique.There is no pleural effusion. The cardiomediastinal silhouette is unremarkable. No acute osseous abnormalities. IMPRESSION: No acute cardiopulmonary process. Finalized by Anjelica Barros on 06/11/2023 6:42 AM Normal [facility] XR HIP LT 2-3 VIEWS W OR WO PELVISon 06-11-2023 XR HIP LT 2-3 VIEWS W OR WO PELVIS XR HIP LT 2-3 VIEWS W OR WO PELVIS XR HIP LT 2-3 VIEWS W OR WO PELVIS 06/11/2023 6:29 AM INDICATION: fall, shortened ex rotated, left hip pain COMPARISON: None. TECHNIQUE: AP and lateral hip with AP pelvis views obtained. FINDINGS: Osseous: Left comminuted transcervical proximal femoral neck fracture. Joints: No malalignment or dislocation. Bilateral sacroiliac joint degenerative changes. Soft tissues: No soft tissue swelling. IMPRESSION: * Left comminuted transcervical proximal femoral neck fracture. Approved by Resident: Pedro Ho MD on 06/11/2023 6:44 AM IAnjelica have personally reviewed the image(s) and agree with and/or edited the report Finalized by Anjelica Barros on 06/11/2023 7:07 AM Normal [facility] Aldosterone [Mass/Vol]on ALDOSTERONE 8.8 ng/dL Normal [facility] Comment on above: Result Comment: NOTE INTERPRETIVE INFORMATION: Aldosterone, Serum Reference intervals for age 15 and older: Upright ......... 4.0 - 31.0 ng/dL Supine .......... Less than or equal to 16.0 ng/dL Unspecified ..... Less than or equal to 31.0 ng/dL Normal serum levels of aldosterone are dependent on the sodium intake and whether the patient is upright or supine. High sodium intake will tend to suppress serum aldosterone, whereas low sodium intake will elevate serum aldosterone. The reference intervals for serum aldosterone are based on normal sodium intake. Access complete set of age- and/or gender-specific reference intervals for this test in the [facility] ([place]). Performed By: [facility] [address] [place] [address] Equity Research Analyst: Elías Dupree MD, PhD CLIA Number: [id number] Performed By: #### F EPR, 51982-4, 2857-1, 2276-4, 2284-8, 2132-9 #### [facility] ([id number]) [address] [place] [address] COMPREHENSIVE METABOLIC PANE [facility] 05-20-2023 Albumin [Mass/Vol] 4.0 g/dL Normal 3.2-5.3 [facility] Comment on above: Performed By: #### C RIGO BARBOZA METNF #### [facility] ([id number]) [address] [place] [address] ALP [Catalytic activity/Vol] 73 U/L Normal 39-130 [facility] Comment on above: Performed By: #### C RIGO BARBOZA METLIZETTE #### [facility] ([id number]) [address] [place] [address] ALT [Catalytic activity/Vol] 17 U/L Normal 0-40 [facility] Comment on above: Performed By: #### C RIGO BARBOZA METLIZETTE #### [facility] ([id number]) [address] [place] [address] Anion gap [Moles/Vol] 10 mmol/L Normal 5-15 [facility] Comment on above: Performed By: #### C RIGO BARBOZA METLIZETTE #### [facility] ([id number]) [address] [place] [address]75[address] AST [Catalytic activity/Vol] 19 U/L Normal 0-41 [facility] Comment on above: Performed By: #### C RIGO BARBOZA METLIZETTE #### [facility] ([id number]) [address] [place] [address] Bilirubin [Mass/Vol] 0.3 mg/dL Normal 0.3-1.2 [facility] Comment on above: Performed By: #### C RIGO BARBOZA, METLIZETTE #### [facility] ([id number]) [address] [place] [address] Calcium [Mass/Vol] 9.1 mg/dL Normal 8.5-10.5 [facility] Comment on above: Performed By: #### C RIGO BARBOZA METNF #### [facility] ([id number]) [address] [place] [address] Chloride [Moles/Vol] 92 mmol/L Low 98-109 [facility] Comment on above: Performed By: #### C RIGO BARBOZA METNF #### [facility] ([id number]) [address] [place] [address] 23889 CO2 [Moles/Vol] 27 mmol/L Normal 22-32 [facility] Comment on above: Performed By: #### C RIGO BARBOZA METNF #### [facility] ([id number]) [address] [place] [address] Creatinine [Mass/Vol] 0.77 mg/dL Normal 0.70-1.20 [facility] Comment on above: Result Comment: METH OD TRACEABLE TO IDMS STANDARD Performed By: #### C RIGO BARBOZA METNF #### [facility] ([id number]) [address] [place] [address] eGFR (CKD-EPI) NON-RACE DEPENDENT >90 Normal >59 [facility] Comment on above: Result Comment: Reported eGFR is based on the CKD-EPI 1 equation that does not use a race coefficient. Performed By: #### C RIGO BARBOZA METLIZETTE #### [facility] ([id number]) [address] [place] [address] Glucose [Mass/Vol] 100 mg/dL High 65-99 [facility] Comment on above: Performed By: #### C RIGO BARBOZA METLIZETTE #### [facility] ([id number]) [address] [place] [address] Potassium [Moles/Vol] 4.2 mmol/L Normal 3.5-5.0 [facility] Comment on above: Performed By: #### C RIGO BARBOZA METNF #### [facility] ([id number]) [address] [place] [address] Protein [Mass/Vol] 7.2 g/dL Normal 6.0-8.0 [facility] Comment on above: Performed By: #### C RIGO BARBOZA, METNF #### [facility] ([id number]) [address] [place] [address] Sodium [Moles/Vol] 129 mmol/L Low 134-146 [facility] Comment on above: Performed By: #### C JABARI, RENACT, METNF #### [facility] ([id number]) [address] [place] [address] Urea nitrogen [Mass/Vol] 11 mg/dL Normal 5-27 [facility] Comment on above: Performed By: #### C JABARI, RIGO, METNF #### [facility] ([id number]) [address] [place] [address] Corticotropin (P) [Mass/Vol] on 05-20-2023 ACTH 46.4 pg/mL Normal 7.2-63.3 [facility] Comment on above: Result Comment: NOTE ACTH Reference Range: 7-10 am: 7.2 - 63.3 pg/mL Test Performed By: [facility] [address] [place] [address] Equity Research Analyst: Maureen Grace III #[id number] Performed By: #### F EPR, 66015-0, 2857-1, 2276-4, 2284-8, 2132-9 #### [facility] ([id number]) [address] [place] [address] [address] [place] [address] Cortisol [Mass/Vol]on 2023 CORTISOL 10.3 ug/dL Normal [facility] Comment on above: Result Comment: Due to the diurnal variation of cortisol levels in normal subjects, all cortisol measurements should be referenced to the time of day of sample collection. AM Cortisol Age>=6 6.7-22.4 ug/dL PM Cortisol Age>=6 <10 ug/dL Performed By: #### 2 143-6 #### [facility] ([id number]) [address], [address] [place] [address] DHEA-S [Mass/Vol]on 05-20-19 24 DHEA S 19 ug/dL Normal 5-253 [facility] Comment on above: Performed By: #### F EPR, 09190-3, 2857-1, 2276-4, 2284-8, 2132-9 #### [facility] ([id number]) [address], [address] [place] [address] METANEPH FRACT FREEon 2023 METANEPHRINE FREE <15 Normal 12-67 [facility] Comment on above: Result Comment: NOTE Reference Ranges: Hypertensive adult > or = 18 yrs old: 12-72 pg/mL Normotensive adult > or = 18 yrs old: 12-67 pg/mL Normotensive children < 18 yrs old: 10-95 pg/mL Performed By: #### C RIGO BARBOZA, BRIAN #### [facility] ([id number]) [address] [place] [address], [place] [address] NORMETANEPHRINE FREE 91 pg/mL Normal 18-101 [facility] Comment on above: Result Comment: NOTE Reference Ranges: Hypertensive adult > or = 18 yrs old: 24-145 pg/mL Normotensive adult > or = 18 yrs old: 18-101 pg/mL Normotensive children < 18 yrs old: 22-83 pg/mL Methyldopa may cause false elevation of normetanephrine levels in this assay. If patient is on methyldopa, interpret results with caution. Plasma Free Metanephrine test performed by Liquid Chromatography Tandem Mass Spectrometry (LC/MS/MS). Results obtained with different methods or kits cannot be used interchangeably. This test was developed and its performance characteristics determined by [facility]'s Soumya Rodriguez [facility] [place] [facility] It has not been cleared or approved by the FDA. [facility] is regulated under CLIA as qualified to perform high-complexity testing. This test is used for clinical purposes. It should not be regarded as investigational or for research. Test Performed By: [facility] [address] [place] [address] Equity Research Analyst: Lewis Maxwell III, M.D. CLIA #[id number] Performed By: #### C MP, RENACT, METNF #### [facility] ([id number]) [address] [place] [address], [place] [address] RENIN ACTIVITYon 05-20-2023 RENIN ACTIVITY 0.7 ng/mL/hr Normal [facility] Comment on above: Result Comment: NOTE INTERPRETIVE INFORMATION: Renin Activity Adult, Normal sodium diet: Supine ................. 0.2-1.6 ng/mL/hr Upright ................ 0.5-4.0 ng/mL/hr Children, Normal sodium diet, Supine: (1-7 days) ..... 2.0-35.0 ng/mL/hr Cord blood ............. 4.0-32.0 ng/mL/hr 1-12 mos ............... 2.4-37.0 ng/mL/hr 13 mos-3 yrs ........... 1.7-11.2 ng/mL/hr 4-5 yrs ................ 1.0- 6.5 ng/mL/hr 6-10 yrs ............... 0.5- 5.9 ng/mL/hr 11-15 yrs .............. 0.5- 3.3 ng/mL/hr Children, normal sodium diet, Upright: 0-3 yrs ................ Not Available 4-5 yrs ................ Less than or equal to 15 ng/mL/hr 6-10 yrs ............... Less than or equal to 17 ng/mL/hr 11-15 yrs .............. Less than or equal to 16 ng/mL/hr Plasma renin activity measures enzyme ability to convert angiotensinogen to angiotensin I and is limited by the availability of angiotensinogen. Plasma renin activity is not an accurate indicator of enzyme activity when angiotensinogen is decreased. This test was developed and its performance characteristics determined by [facility]. It has not been cleared or approved by the [place] Food and Drug Administration. This test was performed in a CLIA certified laboratory and is intended for clinical purposes. Performed By: [facility] [address] [place] [address] Equity Research Analyst: Elías Dupree MD, PhD CLIA Number: [id number] Performed By: #### C MP, RENACT, METNF #### [facility] ([id number]) [address] [place] [address], [place] [address] BASIC METABOLIC PANLon 03-21 Anion gap [Moles/Vol] 8 mmol/L Normal 5-[address] [facility] Comment on above: Performed By: #### P INR, 47526-9, THYR, CMP, 7-, 38350-1 #### [facility] ([id number]) [address], [address] [place] [address] Calcium [Mass/Vol] 8.9 mg/dL Normal 8.5-10.5 [facility] Comment on above: Performed By: #### P INR, 87548-9, THYR, CMP, 7-, 50222-2 #### [facility] ([id number]) [address], [address] [place] [address] Chloride [Moles/Vol] 106 mmol/L Normal 98-109 [facility] Comment on above: Performed By: #### P INR, 83960-0, THYR, CMP, 2776-02, #### [facility] ([id number]) [address] [address] [place] [address] CO2 [Moles/Vol] 29 mmol/L Normal 22-32 [facility] Comment on above: Performed By: #### P INR, 68941-0, THYR, CMP, 2776-02, #### [facility] ([id number]) [address] [address] Creatinine [Mass/Vol] 0.67 mg/dL Normal 0.60-1.30 [facility] Comment on above: Result Comment: METH OD TRACEABLE TO IDMS STANDARD Performed By: #### P INR, 66161-9, THYR, CMP, 2776-02, #### [facility] ([id number]) [address], [address] [address] eGFR (CKD-EPI) NON-RACE DEPENDENT >90 Normal >59 [facility] Comment on above: Result Comment: Reported eGFR is based on the CKD-EPI 2020 equation that does not use a race coefficient. Performed By: #### P INR, 17441-3, THYR, CMP, 2776-02, #### [facility] ([id number]) [address] [address] Glucose [Mass/Vol] 108 mg/dL High 65-99 [facility] Comment on above: Performed By: #### P INR, 53608-3, THYR, CMP, 2776-02, #### [facility] ([id number]) [address] [address] Potassium [Moles/Vol] 3.9 mmol/L Normal 3.5-5.0 [facility] Comment on above: Performed By: #### P INR, 84761-2, THYR, CMP, 2776-02, #### [facility] ([id number]) [address], [address] [place] [address] Sodium [Moles/Vol] 143 mmol/L Normal 134-146 [facility] Comment on above: Performed By: #### P INR, 30610-2, THYR, CMP, 2776-02, #### [facility] ([id number]) [address], [address] [place] [address] Urea nitrogen [Mass/Vol] 8 mg/dL Normal 5-27 [facility] Comment on above: Performed By: #### P INR, 74859-2, THYR, CMP, 2776-02, #### [facility] ([id number]) [address], [facility] [address] [place] [address] COMPLETE BLOOD COUNTon 03-21 Erythrocyte distribution width (RBC) [Ratio] 13.3 % Normal 11.5-15.0 [facility] Comment on above: Performed By: #### P INR, 26822-2, THYR, CMP, 2776-02, #### [facility] ([id number]) [address], [address] [place] [address] Hematocrit (Bld) [Volume fraction] 29.0 % Low 39-49 [facility] Comment on above: Performed By: #### P INR, 19335-4, THYR, CMP, 2776-02, #### [facility] ([id number]) [address] [address] [place] [address] Hemoglobin (Bld) [Mass/Vol] 10.0 g/dL Low 13.0-17.0 [facility] Comment on above: Performed By: #### P INR, 41149-7, THYR, CMP, 2776-02, #### [facility] ([id number]) [address], [address] [place] [address] MCH (RBC) [Entitic mass] 30.1 pg Normal 27-34 [facility] Comment on above: Performed By: #### P INR, 80245-0, THYR, CMP, 2776-02, #### [facility] ([id number]) [address], [facility] [address] [place] [address] MCHC (RBC) [Mass/Vol] 34.5 g/dL Normal 32-36 [facility] Comment on above: Performed By: #### P INR, 49085-1, THYR, CMP, 2776-02, #### [facility] ([id number]) [address] [address] MCV (RBC) [Entitic vol] 87 fL Normal 80-100 [facility] Comment on above: Performed By: #### P INR, 43583-5, THYR, CMP, 2776-02, #### [facility] ([id number]) [address] [address] [place] [address] Platelet mean volume (Bld) [Entitic vol] 7.4 fL Normal 7-12 [facility] Comment on above: Performed By: #### P INR, 81582-8, THYR, CMP, 2776-02, #### [facility] ([id number]) [address] [address] Platelets (Bld) [#/Vol] 262 10*3/uL Normal 150-450 [facility] Comment on above: Performed By: #### P INR, 35203-6, THYR, CMP, 2776-02, #### [facility] ([id number]) [address] [address] [place] [address] RBC COUNT 3.33 X10E12/L Low 4.10-5.70 [facility] Comment on above: Performed By: #### P INR, 89980-9, THYR, CMP, 2776-02, #### [facility] ([id number]) [address] [facility] [place] [address] WBC (Bld) [#/Vol] 6.4 10*3/uL Normal 4.0-11.0 [facility] Comment on above: Performed By: #### P INR, 43731-0, THYR, CMP, 2776-02, #### [facility] ([id number]) [address] [facility] [facility] [place] [address] Corticotropin (P) [Mass/Vol] on 03-21-2023 ACTH 78.6 pg/mL High 7.2-63.3 [facility] Comment on above: Result Comment: NOTE ACTH Reference Range: 7-10 am: 7.2 - 63.3 pg/mL Test Performed By: [place] [address] Equity Research Analyst: Maureen Grace III #[id number] Cortisol [Mass/Vol]on 2023 CORTISOL 17.0 ug/dL Normal [facility] Comment on above: Result Comment: Due to the diurnal variation of cortisol levels in normal subjects, all cortisol measurements should be referenced to the time of day of sample collection. AM Cortisol Age>=6 6.7-22.4 ug/dL PM Cortisol Age>=6 <10 ug/dL Performed By: #### P INR, 54257-2, THYR, CMP, 2776-02, #### [facility] ([id number]) [address] [facility] [facility] [place] [address] DHEA-S [Mass/Vol]on 03-21-19 24 DHEA S 25 ug/dL Normal 5-253 [facility] Comment on above: Performed By: #### P INR, 43511-3, THYR, CMP, 2776-02, #### [facility] ([id number]) [address], [address] [place] [address] BASIC METABOLIC PANLon 03-20 Anion gap [Moles/Vol] 7 mmol/L Normal 5-15 [facility] Comment on above: Performed By: #### P INR, 76393-1, THYR, CMP, 2776-02, #### [facility] ([id number]) [address], [address] [place] [address] Calcium [Mass/Vol] 8.5 mg/dL Normal 8.5-10.5 [facility] Comment on above: Performed By: #### P INR, 25209-2, THYR, CMP, 2776-02, #### [facility] ([id number]) [address], [address] [place] [address] Chloride [Moles/Vol] 109 mmol/L Normal 98-109 [facility] Comment on above: Performed By: #### P INR, 71799-0, THYR, CMP, 2776-02, #### [facility] ([id number]) [address], [address] [place] [address] CO2 [Moles/Vol] 27 mmol/L Normal 22-32 [facility] Comment on above: Performed By: #### P INR, 68887-4, THYR, CMP, 2776-02, #### [facility] ([id number]) [address], [address] [place] [address] Creatinine [Mass/Vol] 0.71 mg/dL Normal 0.60-1.30 [facility] Comment on above: Result Comment: METH OD TRACEABLE TO IDMS STANDARD Performed By: #### P INR, 30394-1, THYR, CMP, 2776-02, #### [facility] ([id number]) [address], [address] [place] [address] eGFR (CKD-EPI) NON-RACE DEPENDENT >90 Normal >59 [facility] Comment on above: Result Comment: Reported eGFR is based on the CKD-EPI 2020 equation that does not use a race coefficient. Performed By: #### P INR, 85683-0, THYR, CMP, 2776-02, #### [facility] ([id number]) [address], [address] [place] [address] Glucose [Mass/Vol] 101 mg/dL High 65-99 [facility] Comment on above: Performed By: #### P INR, 34295-3, THYR, CMP, 2776-02, #### [facility] ([id number]) [address], [address] [place] [address] Potassium [Moles/Vol] 3.7 mmol/L Normal 3.5-5.0 [facility] Comment on above: Performed By: #### P INR, 50427-0, THYR, CMP, 2776-02, #### [facility] ([id number]) [address], [address] [place] [address] Sodium [Moles/Vol] 143 mmol/L Normal 134-146 [facility] Comment on above: Performed By: #### P INR, 53350-0, THYR, CMP, 2776-02, #### [facility] ([id number]) [address] [address] [place] [address] Urea nitrogen [Mass/Vol] 11 mg/dL Normal 5-27 [facility] Comment on above: Performed By: #### P INR, 06365-9, THYR, CMP, 2776-02, #### [facility] ([id number]) [address], [address] [place] [address] COMPLETE BLOOD COUNTon 03-20 Erythrocyte distribution width (RBC) [Ratio] 13.3 % Normal 11.5-15.0 [facility] Comment on above: Performed By: #### P INR, 38979-6, THYR, CMP, 2776-02, #### [facility] ([id number]) [address], [address] [place] [address] Hematocrit (Bld) [Volume fraction] 27.2 % Low 39-49 [facility] Comment on above: Performed By: #### P INR, 31401-0, THYR, CMP, 2776-02, #### [facility] ([id number]) [address] [address] [place] [address] Hemoglobin (Bld) [Mass/Vol] 9.4 g/dL Low 13.0-17.0 [facility] Comment on above: Performed By: #### P INR, 11870-0, THYR, CMP, 2776-02, #### [facility] ([id number]) [address], [address] [place] [address] MCH (RBC) [Entitic mass] 29.8 pg Normal 27-34 [facility] Comment on above: Performed By: #### P INR, 60686-8, THYR, CMP, 2776-02, #### [facility] ([id number]) [address], [address] [place] [address] MCHC (RBC) [Mass/Vol] 34.7 g/dL Normal 32-36 [facility] Comment on above: Performed By: #### P INR, 44316-7, THYR, CMP, 2776-02, #### [facility] ([id number]) [address], [address] [place] [address] MCV (RBC) [Entitic vol] 86 fL Normal 80-100 [facility] Comment on above: Performed By: #### P INR, 09101-4, THYR, CMP, 2776-02, #### [facility] ([id number]) [address], [address] [address] Platelet mean volume (Bld) [Entitic vol] 7.3 fL Normal 7-12 [facility] Comment on above: Performed By: #### P INR, 85064-2, THYR, CMP, 2776-02, #### [facility] ([id number]) [address] [address] Platelets (Bld) [#/Vol] 241 10*3/uL Normal 150-450 [facility] Comment on above: Performed By: #### P INR, 25167-6, THYR, CMP, 2776-02, #### [facility] ([id number]) [address] [address] RBC COUNT 3.17 X10E12/L Low 4.10-5.70 [facility] Comment on above: Performed By: #### P INR, 89097-0, THYR, CMP, 2776-02, #### [facility] ([id number]) [address] [address] WBC (Bld) [#/Vol] 6.2 10*3/uL Normal 4.0-11.0 [facility] Comment on above: Performed By: #### P INR, 24296-0, THYR, CMP, 2776-02, #### [facility] ([id number]) [address] [address] [place] [address] BASIC METABOLIC PANLon 03-19 Anion gap [Moles/Vol] 8 mmol/L Normal 5-15 [facility] Comment on above: Performed By: #### P INR, 83234-6, THYR, CMP, 2776-02, #### [facility] ([id number]) [address], [address] [place] [address] Calcium [Mass/Vol] 8.4 mg/dL Low 8.5-10.5 [facility] Comment on above: Performed By: #### P INR, 68600-9, THYR, CMP, 2776-02, #### [facility] ([id number]) [address], [address] [place] [address] Chloride [Moles/Vol] 107 mmol/L Normal 98-109 [facility] Comment on above: Performed By: #### P INR, 97985-9, THYR, CMP, 2776-02, #### [facility] ([id number]) [address], [address] [place] [address] CO2 [Moles/Vol] 27 mmol/L Normal 22-32 [facility] Comment on above: Performed By: #### P INR, 87890-2, THYR, CMP, 2776-02, #### [facility] ([id number]) [address], [address] [place] [address] Creatinine [Mass/Vol] 0.90 mg/dL Normal 0.60-1.30 [facility] Comment on above: Result Comment: METH OD TRACEABLE TO IDMS STANDARD Performed By: #### P INR, 66901-0, THYR, CMP, 2776-02, #### [facility] ([id number]) [address], [address] [place] [address] GFR/1.73 sq M.predicted among non-blacks MDRD (S/P/Bld) [Vol rate/Area] 90 mL/min/{1.73_m2} Normal >59 [facility] Comment on above: Result Comment: Reported eGFR is based on the CKD-EPI 2020 equation that does not use a race coefficient. Performed By: #### P INR, 84408-4, THYR, CMP, 2776-02, #### [facility] ([id number]) [address], [address] [place] [address] Glucose [Mass/Vol] 96 mg/dL Normal 65-99 [facility] Comment on above: Performed By: #### P INR, 33694-0, THYR, CMP, 2776-, #### [facility] ([id number]) [address], [facility] [address] [place] [address] Potassium [Moles/Vol] 3.8 mmol/L Normal 3.5-5.0 [facility] Comment on above: Performed By: #### P INR, 19274-4, THYR, CMP, 2776-02, #### [facility] ([id number]) [address], [address] [place] [address] Sodium [Moles/Vol] 142 mmol/L Normal 134-146 [facility] Comment on above: Performed By: #### P INR, 68425-4, THYR, CMP, 2776-02, #### [facility] ([id number]) [address], [facility] [address] [place] [address] Urea nitrogen [Mass/Vol] 21 mg/dL Normal 5-27 [facility] Comment on above: Performed By: #### P INR, 02191-6, THYR, CMP, 2776-, #### [facility] ([id number]) [address], [facility] [address] [place] [address] COMPLETE BLOOD COUNTon 03-19 Erythrocyte distribution width (RBC) [Ratio] 13.3 % Normal 11.5-15.0 [facility] Comment on above: Performed By: #### P INR, 57191-7, THYR, CMP, 2776-02, #### [facility] ([id number]) [address], [address] [place] [address] Hematocrit (Bld) [Volume fraction] 28.8 % Low 39-49 [facility] Comment on above: Performed By: #### P INR, 86626-0, THYR, CMP, 2776-02, #### [facility] ([id number]) [address], [address] [place] [address] Hemoglobin (Bld) [Mass/Vol] 9.7 g/dL Low 13.0-17.0 [facility] Comment on above: Performed By: #### P INR, 15557-2, THYR, CMP, 2776-02, #### [facility] ([id number]) [address], [address] [place] [address] MCH (RBC) [Entitic mass] 29.8 pg Normal 27-34 [facility] Comment on above: Performed By: #### P INR, 49421-5, THYR, CMP, 2776-02, #### [facility] ([id number]) [address], [address] [place] [address] MCHC (RBC) [Mass/Vol] 33.7 g/dL Normal 32-36 [facility] Comment on above: Performed By: #### P INR, 95229-7, THYR, CMP, 2776-02, #### [facility] ([id number]) [address] [address] [place] [address] MCV (RBC) [Entitic vol] 88 fL Normal 80-100 [facility] Comment on above: Performed By: #### P INR, 17699-4, THYR, CMP, 2776-02, #### [facility] ([id number]) [address], [address] [place] [address] Platelet mean volume (Bld) [Entitic vol] 7.3 fL Normal 7-12 [facility] Comment on above: Performed By: #### P INR, 62903-4, THYR, CMP, 2776-02, #### [facility] ([id number]) [address], [facility] [address] [place] [address] Platelets (Bld) [#/Vol] 234 10*3/uL Normal 150-450 [facility] Comment on above: Performed By: #### P INR, 89340-9, THYR, CMP, 2776-, #### [facility] ([id number]) [address], [facility] [address] [place] [address] RBC COUNT 3.26 X10E12/L Low 4.10-5.70 [facility] Comment on above: Performed By: #### P INR, 79487-8, THYR, CMP, 2776-02, #### [facility] ([id number]) [address] [address] [place] [address] WBC (Bld) [#/Vol] 7.6 10*3/uL Normal 4.0-11.0 [facility] Comment on above: Performed By: #### P INR, 49261-3, THYR, CMP, 2776-02, #### [facility] ([id number]) [address], [address] [place] [address] Cortisol [Mass/Vol]on 2023 CORTISOL 6.6 ug/dL Normal [facility] Comment on above: Result Comment: Due to the diurnal variation of cortisol levels in normal subjects, all cortisol measurements should be referenced to the time of day of sample collection. AM Cortisol Age>=6 6.7-22.4 ug/dL PM Cortisol Age>=6 <10 ug/dL Performed By: #### P INR, 62509-1, THYR, CMP, 2776-02, #### [facility] ([id number]) [address], [address] [place] [address] BASIC METABOLIC PANLon 03-18 Anion gap [Moles/Vol] 9 mmol/L Normal 5-15 [facility] Comment on above: Performed By: #### P INR, 54308-7, THYR, CMP, 2776-02, #### [facility] ([id number]) [address], [address] [place] [address] Calcium [Mass/Vol] 8.3 mg/dL Low 8.5-10.5 [facility] Comment on above: Performed By: #### P INR, 52729-7, THYR, CMP, 2776-02, #### [facility] ([id number]) [address], [address] [place] [address] Chloride [Moles/Vol] 105 mmol/L Normal 98-109 [facility] Comment on above: Performed By: #### P INR, 34422-8, THYR, CMP, 2776-02, #### [facility] ([id number]) [address], [address] [place] [address] CO2 [Moles/Vol] 25 mmol/L Normal 22-32 [facility] Comment on above: Performed By: #### P INR, 43382-5, THYR, CMP, 2776-02, #### [facility] ([id number]) [address], [address] [place] [address] Creatinine [Mass/Vol] 1.32 mg/dL High 0.60-1.30 [facility] Comment on above: Result Comment: METH OD TRACEABLE TO IDMS STANDARD Performed By: #### P INR, 21474-6, THYR, CMP, 2776-02, #### [facility] ([id number]) [address], [address] [place] [address] GFR/1.73 sq M.predicted among non-blacks MDRD (S/P/Bld) [Vol rate/Area] 57 mL/min/{1.73_m2} Low >59 [facility] Comment on above: Result Comment: Reported eGFR is based on the CKD-EPI 2020 equation that does not use a race coefficient. Performed By: #### P INR, 85152-1, THYR, CMP, 2776-02, #### [facility] ([id number]) [address], [address] [place] [address] Glucose [Mass/Vol] 85 mg/dL Normal 65-99 [facility] Comment on above: Performed By: #### P INR, 05393-7, THYR, CMP, 2776-02, #### [facility] ([id number]) [address] [address] [place] [address] Potassium [Moles/Vol] 4.1 mmol/L Normal 3.5-5.0 [facility] Comment on above: Performed By: #### P INR, 92825-4, THYR, CMP, 2776-02, #### [facility] ([id number]) [address], [address] [place] [address] Sodium [Moles/Vol] 139 mmol/L Normal 134-146 [facility] Comment on above: Performed By: #### P INR, 67981-6, THYR, CMP, 2776-02, #### [facility] ([id number]) [address], [address] [place] [address] Urea nitrogen [Mass/Vol] 30 mg/dL High 5-27 [facility] Comment on above: Performed By: #### P INR, 98745-8, THYR, CMP, 2776-02, #### [facility] ([id number]) [address], [address] [place] [address] COMPLETE BLOOD COUNTon 03-18 Erythrocyte distribution width (RBC) [Ratio] 14.0 % Normal 11.5-15.0 [facility] Comment on above: Performed By: #### P INR, 42921-4, THYR, CMP, 2776-02, #### [facility] ([id number]) [address], [address] [place] [address] Hematocrit (Bld) [Volume fraction] 29.6 % Low 39-49 [facility] Comment on above: Performed By: #### P INR, 23047-8, THYR, CMP, 2776-02, #### [facility] ([id number]) [address], [address] [place] [address] Hemoglobin (Bld) [Mass/Vol] 10.1 g/dL Low 13.0-17.0 [facility] Comment on above: Performed By: #### P INR, 12594-3, THYR, CMP, 2776-02, #### [facility] ([id number]) [address], [address] [place] [address] MCH (RBC) [Entitic mass] 30.3 pg Normal 27-34 [facility] Comment on above: Performed By: #### P INR, 63973-0, THYR, CMP, 2776-02, #### [facility] ([id number]) [address], [address] [place] [address] MCHC (RBC) [Mass/Vol] 34.3 g/dL Normal 32-36 [facility] Comment on above: Performed By: #### P INR, 19627-4, THYR, CMP, 2776-, #### [facility] ([id number]) [address], [address] [place] [address] MCV (RBC) [Entitic vol] 89 fL Normal 80-100 [facility] Comment on above: Performed By: #### P INR, 05519-4, THYR, CMP, 2776-, #### [facility] ([id number]) [address], [address] [place] [address] Platelet mean volume (Bld) [Entitic vol] 7.3 fL Normal 7-12 [facility] Comment on above: Performed By: #### P INR, 89634-2, THYR, CMP, 2776-, #### [facility] ([id number]) [address], [address] [place] [address] Platelets (Bld) [#/Vol] 252 10*3/uL Normal 150-450 [facility] Comment on above: Performed By: #### P INR, 04908-1, THYR, CMP, 2776-02, #### [facility] ([id number]) [address], [facility] [address] [place] [address] RBC COUNT 3.34 X10E12/L Low 4.10-5.70 [facility] Comment on above: Performed By: #### P INR, 73252-3, THYR, CMP, 2776-, #### [facility] ([id number]) [address], [facility] [address] [place] [address] WBC (Bld) [#/Vol] 9.4 10*3/uL Normal 4.0-11.0 [facility] Comment on above: Performed By: #### P INR, 63840-0, THYR, CMP, 2776-, #### [facility] ([id number]) [address], [address] [place] [address] Creatinine (U) [Mass/Vol]on 03-18-2023 URINE CREATININE,RDM 81.12 mg/dL Normal [facility] Comment on above: Performed By: #### P INR, 60485-1, THYR, CMP, 2777-1, 31154-3 #### [facility] ([id number]) [address], [address] [place] [address] MR CERVICAL SPINE WO CONTon 03-18-2023 MR CERVICAL SPINE WO CONT MR CERVICAL SPINE WO CONT EXAM: MR CERVICAL SPINE WO CONT INDICATION: Myelopathy, acute, cervical spine COMPARISON: 02/16/2022 TECHNIQUE/PROTOCOL: Sagittal T1 and T2 sequences were obtained. Exam was prematurely terminated. FINDINGS: Evaluation is limited due to the sagittal sequences. Vertebral Bodies: Surgical changes related to posterior element fusion of C3-C6. Vertebral body heights are maintained. Heterogenous signal characteristics likely due to degeneration. Modic 1 changes to the opposing endplates of C6 and C7. Laminectomy changes from C3 to C6 Alignment: Loss of normal cervical lordosis. Grade 1 anterolisthesis of C2 on C3. Grade 1/2 anterolisthesis of C7 on T1. Extradural:No definite abnormal fluid collections or masses. Spinal Cord: Normal in caliber and signal. The spinal canal is decompressed from C3 to C6. The neural foramina are suboptimally evaluated on the provided sequences. There is mild narrowing at C2-C3 secondary to disc bulge and mild ligamentum flavum thickening. Mild to moderate narrowing at C5-C6 to disc bulge, ligamentum flavum thickening, and facet arthropathy. Mild to moderate thecal sac narrowing at C7-T1 predominantly due to anterolisthesis superimposed disc bulge and ligamentum flavum thickening. No significant soft tissue abnormalities are identified. IMPRESSION: Evaluation is limited to sagittal planes. No definite acute abnormalities are identified. Posterior element fusion and laminectomies from C3 to C6. Mild to moderate spinal canal stenosis at C2-C3, C6-C7, and C7-T1. No corresponding cord signal abnormality. Neural foramina are not well visualized on the provided sequences Minimal anterolisthesis of C2 on C3. Approximately 4 mm of anterolisthesis of C7 on T1, unchanged. Finalized by Anjelica Barros on 03/18/2023 5:[address] [facility] MR LUMBAR SPINE W WO CONTon 03-18-2023 MR LUMBAR SPINE W WO CONT MR LUMBAR SPINE W WO CONT MR LUMBAR SPINE W WO CONT 03/18/2023 12:35 PM INDICATION: Low back pain, prior surgery, new symptoms; Lumbar radiculopathy COMPARISON: Lumbar spine MRI 04/10/2021, ultrasound kidneys 03/18/2023 TECHNIQUE: Multiplanar multisequence MR images of the lumbar spine with and without contrast were obtained. FINDINGS: NUMBERING/ALIGNMENT: There are 5 lumbar type vertebrae. S1 is partially transitional. There is approximately 3 mm of anterolisthesis of L4 and L5. Facet alignment is appropriate. Vertebral body heights are well-maintained. BONE MARROW: Normal bone marrow signal throughout. Mild intraspinous edema and enhancement as well as mild edema-like signal and enhancement about the lower lumbar facets. There are associated small facet effusions, although no definite facet joint irregularity. SPINAL CORD: Visualized portions of the spinal cord are unremarkable. Conus medullaris tip is at L1. Cauda equina nerve roots are normal in morphology and configuration. No suspicious enhancing lesion. Prominent linear structure within the spinal canal at the L1-L2 level, similar to prior, favored to be related to blood vessel. SACRUM: Visualized portions of the sacrum are unremarkable. SOFT TISSUES: Ill-defined edema and enhancement within the posterior paraspinal musculature, without finding collection. Atrophic kidneys with multiple T1 dark lesions, possibly cysts, although indeterminate, please see ultrasound exam. DEGENERATIVE FINDINGS: Mild degenerative disc disease throughout. Moderate to severe intraspinous degenerative changes. L1-L2: Mild facet degeneration and ligamentum flavum hypertrophy. Minimal bilateral neural foraminal narrowing. L2-L3: Mild disc bulge, facet degeneration, mild ligamentum flavum hypertrophy. There is mild spinal canal stenosis. There is mild to moderate bilateral neural foraminal stenosis. These findings are similar compared to prior. L3-L4: Mild disc bulge, moderate facet degeneration, moderate ligamentum flavum hypertrophy. There is mild to moderate spinal canal stenosis. There is mild to moderate bilateral neural foraminal stenosis. These findings are similar compared to prior. L4-L5: Moderate disc bulge and disc uncovering with small central disc extrusion with caudal migration. There is moderate facet degeneration and moderate to severe ligamentum flavum hypertrophy. There is moderate spinal canal stenosis. There is mild to moderate bilateral neural foraminal stenosis. These findings are similar compared to prior. L5-S1: Moderate disc osteophyte complex with small central disc protrusion or osteophyte. There is mild to moderate facet degeneration. There is mild to moderate bilateral neural foraminal stenosis. Questionable deformity versus postsurgical changes of the posterior elements at this level. These findings are similar compared to prior. IMPRESSION: 1. Multilevel degenerative changes lumbar spine, similar compared to prior, most prominent at L4-L5 where there is moderate spinal canal stenosis.. 2. Nonspecific myositis of the posterior paraspinal musculature. 3. Edema and enhancement about the lower lumbar facets favored to be degenerative. There are associated small facet effusions, although no definite facet joint irregularity. Infection could be considered, although much less likely. 4. Atrophic kidneys with multiple T1 dark lesions, possibly cysts, although indeterminate, please see ultrasound exam. Finalized by Ana Tovar DO on 03/18/2023 1:[address] [facility] MR THORACIC SPINE W WO CONTo n 03-18-2023 MR THORACIC SPINE W WO CONT MR THORACIC SPINE W WO CONT EXAM: MR THORACIC SPINE W WO CONT INDICATION: new deficit rule out myelopathy COMPARISON: None TECHNIQUE/PROTOCOL: Multiplanar multisequence thoracic spine pre and postcontrast MRI performed. CONTRAST: 20mL ProHance IV. FINDINGS: Vertebral Bodies: Small vertebral body hemangioma at T8. The vertebral body heights and signal properties are otherwise normal. Alignment: Normal. Extradural:There are no abnormal extradural fluid collections or masses. Spinal Cord: The spinal cord appears normal. Intervertebral discs: At no level is there more than a minimal disc bulge, nor more than minimal posterior element degeneration. Thoracic level: No significant canal or foraminal stenosis. Paraspinal Soft Tissues: Unremarkable. Visualized Surrounding Organs and Viscera: Unremarkable. IMPRESSION: No significant abnormalities of the thoracic spine. Finalized by Anjelica Barros on 03/18/2023 1:[address] [facility] URINALYSISon 03-18-2023 Bilirubin Ql (U) Negative Normal NEG [facility] BLOOD/HGB Large Abnormal NEG [facility] Color (U) YELLOW Normal YELLOW [facility] Glucose Ql (U) Negative Normal NEG [facility] Ketones Ql (U) Negative Normal NEG [facility] Leukocyte esterase Test strip Ql (U) Large Abnormal NEG [facility] Nitrite Ql (U) Negative Normal NEG [facility] pH (U) 6.0 [pH] Normal 5.0-8.5 [facility] Protein Ql (U) 100 mg/dL Abnormal NEG [facility] R.B.CELLS 131 /hpf High 0-5 [facility] Specific gravity (U) [Rel density] 1.020 Normal 1.003-1.035 [facility] SQUAMOUS EPITHELIUM 1 /hpf Normal 0-5 [facility] TRANSITIONAL EPITH 2 /hpf High 0 [facility] TURBIDITY HAZY Abnormal CLEAR [facility] Urobilinogen (U) [Mass/Vol] mg/dL Normal <1.1 [facility] W.B.CELLS >720 High 0-5 [facility] WBC CLUMPS MODERATE Abnormal NONE [facility] URINE SODIUM,RANDOMon 2023 Sodium (U) [Moles/Vol] 35 mmol/L Normal [facility] Comment on above: Performed By: #### P INR, 15466-4, THYR, CMP, 2777-1, 34233-2 #### [facility] ([id number]) [address] [place] [address] US RETROPERITONEAL LIMITEDon 03-18-2023 US RETROPERITONEAL LIMITED US RETROPERITONEAL LIMITED CLINICAL INFORMATION: Acute kidney injury COMPARISON: None. FINDINGS: RIGHT KIDNEY: Length: 11.6 cm. Cortical Thickness/Echogenicity : Cortical thinning Dilatation: None Calculus: 0.6 cm interpolar calculus Mass: No solid mass. Simple 2.4 cm cyst, not requiring follow-up Other: None LEFT KIDNEY: Length: 10.7 cm. Cortical Thickness/Echogenicity : Normal. Dilatation: None Calculus: None Mass: None Other: Suboptimally visualized due to body habitus/technique URINARY BLADDER: Not imaged IMPRESSION: 1. No demonstrated hydronephrosis (noting suboptimal visualization left kidney). 2. Suspect nonobstructing right nephrolithiasis Finalized by Anjelica Clay MD on 03/18/2023 1:[address] [facility] Acetylcholine receptor qasim ng Ab (S) [Moles/Vol]on 03-17-2023 [facility] BINDING AB 0.0 nmol/L Normal 0.0-0.4 [facility] Comment on above: Result Comment: NOTE INTERPRETIVE INFORMATION: Acetylcholine Binding Ab Negative ....... 0.0 - 0.4 nmol/L Positive ....... 0.5 nmol/L or greater Approximately 85-90 percent of patients with myasthenia gravis (MG) express antibodies to the acetylcholine receptor (AChR), which can be divided into binding, blocking, and modulating antibodies. Binding antibody can activate complement and lead to loss of AChR. Blocking antibody may impair binding of acetylcholine to the receptor, leading to poor muscle contraction. Modulating antibody causes receptor endocytosis resulting in loss of AChR expression, which correlates most closely with clinical severity of disease. Approximately 10-15 percent of individuals with confirmed myasthenia gravis have no measurable binding, blocking, or modulating antibodies. This test was developed and its performance characteristics determined by [facility]. It has not been cleared or approved by the [place] Food and Drug Administration. This test was performed in a CLIA certified laboratory and is intended for clinical purposes. Performed By: [facility] [address] [place] [id number] [employer] Analyst: Elías Dupree MD, PhD CLIA Number: [id number] BASIC METABOLIC PANLon 03-17 Anion gap [Moles/Vol] 9 mmol/L Normal 5-15 [facility] Comment on above: Performed By: #### P INR, 24287-2, THYR, CMP, 2777-1, 55020-6 #### [facility] ([id number]) [address] [place] [address] Calcium [Mass/Vol] 9.0 mg/dL Normal 8.5-10.5 [facility] Comment on above: Performed By: #### P INR, 90521-8, THYR, CMP, 2776-02, #### [facility] ([id number]) [address], [address] [place] [address] Chloride [Moles/Vol] 103 mmol/L Normal 98-109 [facility] Comment on above: Performed By: #### P INR, 39662-3, THYR, CMP, 2776-02, #### [facility] ([id number]) [address], [address] [place] [address] CO2 [Moles/Vol] 28 mmol/L Normal 22-32 [facility] Comment on above: Performed By: #### P INR, 71913-7, THYR, CMP, 2776-02, #### [facility] ([id number]) [address], [address] [place] [address] Creatinine [Mass/Vol] 0.76 mg/dL Normal 0.60-1.30 [facility] Comment on above: Result Comment: METH OD TRACEABLE TO IDMS STANDARD Performed By: #### P INR, 05580-4, THYR, CMP, 2776-02, #### [facility] ([id number]) [address], [address] [place] [address] eGFR (CKD-EPI) NON-RACE DEPENDENT >90 Normal >59 [facility] Comment on above: Result Comment: Reported eGFR is based on the CKD-EPI 2020 equation that does not use a race coefficient. Performed By: #### P INR, 91421-6, THYR, CMP, 2776-02, #### [facility] ([id number]) [address], [address] [place] [address] Glucose [Mass/Vol] 100 mg/dL High 65-99 [facility] Comment on above: Performed By: #### P INR, 15104-7, THYR, CMP, 2776-02, #### [facility] ([id number]) [address], [address] [place] [address] Potassium [Moles/Vol] 4.4 mmol/L Normal 3.5-5.0 [facility] Comment on above: Result Comment: SPEC IMEN HEMOLYZED, RESULTS INCREASED MODERATELY HEMOLYZED Performed By: #### P INR, 85563-0, THYR, CMP, 2776-02, #### [facility] ([id number]) [address] [address] Sodium [Moles/Vol] 140 mmol/L Normal 134-146 [facility] Comment on above: Performed By: #### P INR, 28973-8, THYR, CMP, 2776-02, #### [facility] ([id number]) [address] [address] Urea nitrogen [Mass/Vol] 20 mg/dL Normal 5-27 [facility] Comment on above: Performed By: #### P INR, 54294-2, THYR, CMP, 2776-02, #### [facility] ([id number]) [address] [address] COMPLETE BLOOD COUNTon 03-17 Erythrocyte distribution width (RBC) [Ratio] 13.6 % Normal 11.5-15.0 [facility] Comment on above: Performed By: #### P INR, 72772-7, THYR, CMP, 2776-02, #### [facility] ([id number]) [address] [address] Hematocrit (Bld) [Volume fraction] 32.8 % Low 39-49 [facility] Comment on above: Performed By: #### P INR, 01987-1, THYR, CMP, 2776-02, #### [facility] ([id number]) [address] [address] [place] [address] Hemoglobin (Bld) [Mass/Vol] 11.3 g/dL Low 13.0-17.0 [facility] Comment on above: Performed By: #### P INR, 37956-3, THYR, CMP, 2776-02, #### [facility] ([id number]) [address], [facility] [address] [place] [address] MCH (RBC) [Entitic mass] 29.9 pg Normal 27-34 [facility] Comment on above: Performed By: #### P INR, 82768-4, THYR, CMP, 2776-02, #### [facility] ([id number]) [address] [address] [place] [address] MCHC (RBC) [Mass/Vol] 34.4 g/dL Normal 32-36 [facility] Comment on above: Performed By: #### P INR, 65457-7, THYR, CMP, 2776-02, #### [facility] ([id number]) [address] [address] [place] [address] MCV (RBC) [Entitic vol] 87 fL Normal 80-100 [facility] Comment on above: Performed By: #### P INR, 04962-8, THYR, CMP, 2776-02, #### [facility] ([id number]) [address] [address] [place] [address] Platelet mean volume (Bld) [Entitic vol] 8.0 fL Normal 7-12 [facility] Comment on above: Performed By: #### P INR, 94865-3, THYR, CMP, 2776-02, #### [facility] ([id number]) [address] [address] [place] [address] Platelets (Bld) [#/Vol] 297 10*3/uL Normal 150-450 [facility] Comment on above: Performed By: #### P INR, 90478-8, THYR, CMP, 2776-02, #### [facility] ([id number]) [address] [place] [address] RBC COUNT 3.77 X10E12/L Low 4.10-5.70 [facility] Comment on above: Performed By: #### P INR, 96912-7, THYR, CMP, 2776-02, #### [facility] ([id number]) [address], [address] [place] [address] WBC (Bld) [#/Vol] 6.5 10*3/uL Normal 4.0-11.0 [facility] Comment on above: Performed By: #### P INR, 74002-3, THYR, CMP, 2776-02, #### [facility] ([id number]) [address] [place] [address] Calcium.ionized (Bld) [Mass/ Vol]on 03-17-2023 IONIZED CALCIUM 5.0 mg/dL Normal 4.5-5.3 [facility] Comment on above: Performed By: #### P INR, 98241-1, THYR, CMP, 2776-02, #### [facility] ([id number]) [address], [address] [place] [address] Glucose Glucometer (BldC) [M ass/Vol]on 03-17-2023 Glucose [Mass/Vol] 111 mg/dL High 65-99 [facility] MAGNESIUMon 03-17-2023 Magnesium [Mass/Vol] 2.9 mg/dL High 1.8-2.6 [facility] Comment on above: Performed By: #### P INR, 18674-7, THYR, CMP, 2776-02, 64851-5 #### [facility] ([id number]) [address] [facility] [facility] [place] [address] MR BRAIN WO CONTon MR BRAIN WO CONT MR BRAIN WO CONT MRI brain: HISTORY: Neurologic deficit. History of head trauma and syncope. Multisequence multiplanar imaging of the brain was obtained utilizing the routine protocol. There is no cortical signal characteristic abnormality. Gradient echo sequences show no significant susceptibility to suggest hemorrhage or hemosiderin deposition. The diffusion-weighted images show no evidence of diffusion restriction or acute intracranial ischemia. Corresponding ADC map unremarkable. Ventricles are nondilated. Cerebral volume appears age appropriate. Minimal white matter changes noted, age appropriate. Trace fluid present within the right mastoid air cells. Paranasal sinuses appear clear. No flow void abnormality. IMPRESSION: No acute intracranial findings. Finalized by Dominik Hull MD on 03/17/2023 9:[address] [facility] Muscle specific receptor tyr osine kinase Ab (S) [Moles/Vol]on 03-17-2023 MuSK Antibody See Below Normal [facility] Comment on above: Result Comment: NOTE TEST RESULT FLAG UNIT REF.RANGE ------ MuSK Antibody 0.00 nmol/L 0.00-0.02 ADDITIONAL INFORMATION This test was developed using an analyte specific reagent. Its performance characteristics were determined by [facility] in a manner consistent with CLIA requirements. This test has not been cleared or approved by the U.S. Food and Drug Administration. Test Performed by: [facility] - [address] [address] Glass Mould Cleaner: Hari Dejesus M.D. Ph.D.; CLIA# [id number] # NO EXTRA SST TUBES. DRAW Striated muscle Ab (S) [Tite r]on 03-17-2023 STRIATED MUSCLE AB See Below Normal [facility] Comment on above: Result Comment: NOTE TEST RESULT FLAG UNIT REF.RANGE ------ Str Musc IgG Screen <1:40 <1:40 Striated Muscle Antibodies, IgG are not detected. No further testing will be performed. INTERPRETIVE DATA: Striated Muscle Antibodies, IgG Screen In the presence of acetylcholine receptor (AChR) antibody, striated muscle antibodies, which bind in a cross-striational pattern to skeletal and heart muscle tissue sections, are associated with late-onset myasthenia gravis (MG). Striated muscle antibodies recognize epitopes on three major muscle proteins, including: titin, ryanodine receptor (RyR) and Kv1.4 (an alpha subunit of voltage-gated potassium channel [VGKC]). Isolated cases of striated muscle antibodies may be seen in patients with certain autoimmune diseases, rheumatic fever, myocardial infarction, and following some cardiotomy procedures. This test was developed and its performance characteristics determined by [facility]. It has not been cleared or approved by the [place] Food and Drug Administration. This test was performed in a CLIA certified laboratory and is intended for clinical purposes. Performed By: [facility] [address] [place] [id number] Equity Research Analyst: Elías Dupree MD, PhD CLIA Number: [id number] # NO EXTRA SST TUBES. DRAW BASIC METABOLIC PANLon 03-16 Anion gap [Moles/Vol] 7 mmol/L Normal 5-15 [facility] Comment on above: Performed By: #### C GERONIMO, BMP #### [facility] ([id number]) [address] [facility] [facility] [place] [address] Calcium [Mass/Vol] 8.9 mg/dL Normal 8.5-10.5 [facility] Comment on above: Performed By: #### C GERONIMO, BMP #### [facility] ([id number]) [address], [address] [place] [address] Chloride [Moles/Vol] 105 mmol/L Normal 98-109 [facility] Comment on above: Performed By: #### C GERONIMO, BMP #### [facility] ([id number]) [address], [address] [place] [address] CO2 [Moles/Vol] 31 mmol/L Normal 22-32 [facility] Comment on above: Performed By: #### C GERONIMO, BMP #### [facility] ([id number]) [address] [address] [place] [address] Creatinine [Mass/Vol] 0.80 mg/dL Normal 0.60-1.30 [facility] Comment on above: Result Comment: METH OD TRACEABLE TO IDMS STANDARD Performed By: #### C GERONIMO, BMP #### [facility] ([id number]) [address] [place] [address] eGFR (CKD-EPI) NON-RACE DEPENDENT >90 Normal >59 [facility] Comment on above: Result Comment: Reported eGFR is based on the CKD-EPI 2020 equation that does not use a race coefficient. Performed By: #### Aries MELTON, BMP #### [facility] ([id number]) [address] [place] [address] Glucose [Mass/Vol] 86 mg/dL Normal 65-99 [facility] Comment on above: Performed By: #### Aries MELTON, BMP #### [facility] ([id number]) [address], [address] [place] [address] Potassium [Moles/Vol] 4.1 mmol/L Normal 3.5-5.0 [facility] Comment on above: Performed By: #### Aries MELTON, BMP #### [facility] ([id number]) [address], [address] [place] [address] Sodium [Moles/Vol] 143 mmol/L Normal 134-146 [facility] Comment on above: Performed By: #### C GERONIMO, BMP #### [facility] ([id number]) [address], [facility] [address] [place] [address] Urea nitrogen [Mass/Vol] 14 mg/dL Normal 5-27 [facility] Comment on above: Performed By: #### C GERONIMO, BMP #### [facility] ([id number]) [address] [address] [place] [address] COMPLETE BLOOD COUNTon 03-16 Erythrocyte distribution width (RBC) [Ratio] 13.7 % Normal 11.5-15.0 [facility] Comment on above: Performed By: #### C GERONIMO, BMP #### [facility] ([id number]) [address] [address] [place] [address] Hematocrit (Bld) [Volume fraction] 32.1 % Low 39-49 [facility] Comment on above: Performed By: #### Aries MELTON, BMP #### [facility] ([id number]) [address] [address] [place] [address] Hemoglobin (Bld) [Mass/Vol] 11.1 g/dL Low 13.0-17.0 [facility] Comment on above: Performed By: #### Aries MELTON, BMP #### [facility] ([id number]) [address] [address] [place] [address] MCH (RBC) [Entitic mass] 30.1 pg Normal 27-34 [facility] Comment on above: Performed By: #### Aries MELTON, BMP #### [facility] ([id number]) [address] [address] [place] [address] MCHC (RBC) [Mass/Vol] 34.6 g/dL Normal 32-36 [facility] Comment on above: Performed By: #### C GERONIMO, BMP #### [facility] ([id number]) [address], [address] [place] [address] MCV (RBC) [Entitic vol] 87 fL Normal 80-100 [facility] Comment on above: Performed By: #### C BC, BMP #### [facility] ([id number]) [address], [address] [place] [address] Platelet mean volume (Bld) [Entitic vol] 8.0 fL Normal 7-12 [facility] Comment on above: Performed By: #### C GERONIMO, BMP #### [facility] ([id number]) [address], [address] [place] [address] Platelets (Bld) [#/Vol] 275 10*3/uL Normal 150-450 [facility] Comment on above: Performed By: #### C GERONIMO, BMP #### [facility] ([id number]) [address], [address] [place] [address] RBC COUNT 3.68 X10E12/L Low 4.10-5.70 [facility] Comment on above: Performed By: #### C GERONIMO, BMP #### [facility] ([id number]) [address], [address] [place] [address] WBC (Bld) [#/Vol] 7.0 10*3/uL Normal 4.0-11.0 [facility] Comment on above: Performed By: #### C GERONIMO, BMP #### [facility] ([id number]) [address], [address] [place] [address] COMPREHENSIVE METABOLIC PANE Reagan 03-16-2023 Albumin [Mass/Vol] 3.5 g/dL Normal 3.2-5.3 [facility] Comment on above: Performed By: #### P INR, 62817-8, THYR, CMP, 2777-1, 71315-0 #### [facility] ([id number]) [address], [address] [place] [address] ALP [Catalytic activity/Vol] 70 U/L Normal 39-130 [facility] Comment on above: Performed By: #### P INR, 03400-6, THYR, CMP, 2776-, #### [facility] ([id number]) [address], [address] [place] [address] ALT [Catalytic activity/Vol] 11 U/L Normal 0-40 [facility] Comment on above: Performed By: #### P INR, 90867-9, THYR, CMP, 2776-, #### [facility] ([id number]) [address], [address] [place] [address] Anion gap [Moles/Vol] 8 mmol/L Normal 5-15 [facility] Comment on above: Performed By: #### P INR, 73160-6, THYR, CMP, 2776-, #### [facility] ([id number]) [address], [address] [place] [address] AST [Catalytic activity/Vol] 19 U/L Normal 0-41 [facility] Comment on above: Performed By: #### P INR, 65638-0, THYR, CMP, 2776-, #### [facility] ([id number]) [address], [address] [place] [address] Bilirubin [Mass/Vol] 0.5 mg/dL Normal 0.3-1.2 [facility] Comment on above: Performed By: #### P INR, 87702-6, THYR, CMP, 2776-, #### [facility] ([id number]) [address], [address] [place] [address] Calcium [Mass/Vol] 8.7 mg/dL Normal 8.5-10.5 [facility] Comment on above: Performed By: #### P INR, 12911-2, THYR, CMP, 2776-02, #### [facility] ([id number]) [address], [address] [place] [address] Chloride [Moles/Vol] 106 mmol/L Normal 98-109 [facility] Comment on above: Performed By: #### P INR, 94378-9, THYR, CMP, 2776-02, #### [facility] ([id number]) [address], [address] [place] [address] CO2 [Moles/Vol] 28 mmol/L Normal 22-32 [facility] Comment on above: Performed By: #### P INR, 17198-8, THYR, CMP, 2776-02, #### [facility] ([id number]) [address], [address] [place] [address] Creatinine [Mass/Vol] 0.78 mg/dL Normal 0.60-1.30 [facility] Comment on above: Result Comment: METH OD TRACEABLE TO IDMS STANDARD Performed By: #### P INR, 83376-0, THYR, CMP, 2776-02, #### [facility] ([id number]) [address], [address] [place] [address] eGFR (CKD-EPI) NON-RACE DEPENDENT >90 Normal >59 [facility] Comment on above: Result Comment: Reported eGFR is based on the CKD-EPI 2021 equation that does not use a race coefficient. Performed By: #### P INR, 96408-5, THYR, CMP, 2776-02, #### [facility] ([id number]) [address], [address] [place] [address] Glucose [Mass/Vol] 87 mg/dL Normal 65-99 [facility] Comment on above: Performed By: #### P INR, 58328-3, THYR, CMP, 2776-02, #### [facility] ([id number]) [address], [address] [place] [address] Potassium [Moles/Vol] 4.2 mmol/L Normal 3.5-5.0 [facility] Comment on above: Performed By: #### P INR, 84458-2, THYR, CMP, 2776-02, #### [facility] ([id number]) [address] [place] [address] Protein [Mass/Vol] 6.2 g/dL Normal 6.0-8.0 [facility] Comment on above: Performed By: #### P INR, 93758-2, THYR, CMP, 2776-02, #### [facility] ([id number]) [address], [address] [place] [address] Sodium [Moles/Vol] 142 mmol/L Normal 134-146 [facility] Comment on above: Performed By: #### P INR, 97308-5, THYR, CMP, 2776-02, #### [facility] ([id number]) [address], [address] [place] [address] Urea nitrogen [Mass/Vol] 15 mg/dL Normal 5-27 [facility] Comment on above: Performed By: #### P INR, 02625-9, THYR, CMP, 2776-02, #### [facility] ([id number]) [address] [place] [address] MAGNESIUMon 03-16-2023 Magnesium [Mass/Vol] 1.9 mg/dL Normal 1.8-2.6 [facility] Comment on above: Performed By: #### P INR, 66226-6, THYR, CMP, 2776-02, #### [facility] ([id number]) [address] [place] [address] PHOSPHORUSon 03-16-2023 Phosphate [Mass/Vol] 3.9 mg/dL Normal 2.4-4.9 [facility] Comment on above: Performed By: #### P INR, 73676-0, THYR, CMP, 2776-02, #### [facility] ([id number]) [address] [facility] [facility] [facility] [address] [place] [address] PROTIME AND INRon 03-16-2023 INR Coag (PPP) [Relative time] 1.0 {INR} Normal 0.8-1.1 [facility] Comment on above: Performed By: #### P INR, 36818-0, THYR, CMP, 2776-02, #### [facility] ([id number]) [address] [facility] [address] [place] [address] PT Coag (PPP) [Time] 11.2 s Normal 9.8-13.2 [facility] Comment on above: Performed By: #### P INR, 68626-7, THYR, CMP, 2776-02, #### [facility] ([id number]) [address] [facility], [facility] [address] [place] [address] THYROID PROFILEon 03-16-2023 Free T4 [Mass/Vol] 0.40 ng/dL Low 0.61-1.60 [facility] Comment on above: Performed By: #### P INR, 66661-0, THYR, CMP, 2776-02, #### [facility] ([id number]) [address] [facility] [address] [place] [address] TSH 0.88 uIU/mL Normal 0.49-4.67 [facility] Comment on above: Performed By: #### P INR, 94874-3, THYR, CMP, 2776-02, #### [facility] ([id number]) [address] [facility], [address] [place] [address] TROPONIN Ion 03-16-2023 Troponin I.cardiac [Mass/Vol] ng/mL Normal 0.00-0.04 [facility] Comment on above: Performed By: #### P INR, 30987-9, THYR, CMP, 2777-1, 95988-0 #### [facility] ([id number]) [address] [facility] [facility] [place] [address] URINALYSISon 03-16-2023 Bilirubin Ql (U) Negative Normal NEG [facility] BLOOD/HGB Large Abnormal NEG [facility] Color (U) YELLOW Normal YELLOW [facility] Glucose Ql (U) Negative Normal NEG [facility] Ketones Ql (U) Negative Normal NEG [facility] Leukocyte esterase Test strip Ql (U) MODERATE Abnormal NEG [facility] MUCOUS PRESENT Abnormal NONE [facility] Nitrite Ql (U) Negative Normal NEG [facility] pH (U) 6.0 [pH] Normal 5.0-8.5 [facility] Protein Ql (U) Trace Abnormal NEG [facility] R.B.CELLS 178 /hpf High 0-5 [facility] Specific gravity (U) [Rel density] 1.016 Normal 1.003-1.035 [facility] TURBIDITY CLEAR Normal CLEAR [facility] Urobilinogen (U) [Mass/Vol] mg/dL Normal <1.1 [facility] W.B.CELLS 58 /hpf High 0-5 [facility] URINE CULTUREon 03-16-2023 Bacteria identified Cx Nom (U) CULTURE RESULTS >100,000 ORGANISMS/mL ENTEROCOCCUS SPECIES Ampicillin or Amoxicillin is the drug of choice for uncomplicated cystitis caused by enterococci. Cephalosporins are inappropriate. [ S = SUSCEPTIBLE R = RESISTANT I = INTERMEDIATE S-DO = Susceptible-dose dependent NS = Non-suscceptible NO = No Interpretation ] Organism: ENTEROCOCCUS SPECIES Antibiotic Interpretation RUBY Status AMPICILLIN S <=2 F LEVOFLOXACIN S 1 F NITROFURANTOIN S <=16 F VANCOMYCIN S [address] [facility] Comment on above: Performed By: #### P INR, 92975-4, THYR, CMP, 2777-1, 91742-5 #### [facility] ([id number]) [address], [address] [place] [address] XR CHEST 1 VWon 03-15-2023 XR CHEST 1 VW XR CHEST 1 VW CHEST 1 VIEW HISTORY: Infection COMPARISON: 03/09/2022 FINDINGS: No focal airspace disease, pulmonary edema, pleural effusions, or pneumothorax. Normal cardiomediastinal silhouette. IMPRESSION: No acute cardiopulmonary disease. Finalized by Vernell Nash MD on 03/15/2023 9:[address] [facility] FERRITINon 01-31-2023 Ferritin [Mass/Vol] 74 ng/mL Normal 24-336 [facility] Comment on above: Performed By: #### F EPR, 17539-2, 2857-1, 2276-4, 2284-8, 2131-10 #### [facility] ([id number]) [address], [address] [place] [address] Folate [Mass/Vol]on 02-01-20 23 FOLIC ACID 6.9 ng/mL Normal >5.8 [facility] Comment on above: Result Comment: NEW REFERENCE RANGE Performed By: #### F EPR, 99052-0, 2857-1, 2276-4, 2284-8, 2131-10 #### [facility] ([id number]) [address] [place] [address] IRON PROFILEon 01-31-2023 Iron [Mass/Vol] 64 ug/dL Normal 50-212 [facility] Comment on above: Performed By: #### F EPR, 41700-8, 2857-1, 2276-4, 2284-8, 2131-10 #### [facility] ([id number]) [address], [address] [place] [address] IRON BINDING 290 ug/dL Normal 250-425 [facility] Comment on above: Performed By: #### F EPR, 95099-5, 2857-1, 2276-4, 2284-8, 9 #### [facility] ([id number]) [address], [address] [place] [address] IRON SATURATION 22 % SATURATION Normal 20-50 [facility] Comment on above: Performed By: #### F EPR, 13181-3, 2857-1, 2276-4, 4-8, 2131-10 #### [facility] ([id number]) [address], [address] [place] [address] Lipid 1996 panelon 3 Cholesterol [Mass/Vol] 144 mg/dL Low 150-200 [facility] Comment on above: Performed By: #### F EPR, 71837-3, 2857-1, 2276-4, 4-8, 2131-10 #### [facility] ([id number]) [address], [address] [place] [address] Cholesterol in HDL [Mass/Vol] 58 mg/dL Normal >39 [facility] Comment on above: Result Comment: HDL <40 mg/dL - High Risk HDL > or = 40mg/dL- Desirable HDL >60 mg/dL - Negative Risk Performed By: #### F EPR, 03224-3, 2857-1, 2276-4, 2284-8, 9 #### [facility] ([id number]) [address] [place] [address] Cholesterol in LDL [Mass/Vol] 57 mg/dL Normal <130 [facility] Comment on above: Result Comment: LDL <100 mg/dL - Desirable LDL >160 mg/dL - High Risk Performed By: #### F EPR, 36119-1, 2857-1, 2276-4, 2284-8, 2131-10 #### [facility] ([id number]) [address], [facility] [address] [place] [address] Cholesterol in VLDL [Mass/Vol] 29 mg/dL Normal 0-30 [facility] Comment on above: Performed By: #### F EPR, 87598-8, 2857-1, 2276-4, 2284-8, 2131-10 #### [facility] ([id number]) [address], [facility] [address] [place] [address] CHOLESTEROL:HDL 2.5 Normal 1.0-5.0 [facility] Comment on above: Performed By: #### F EPR, 61506-7, 2857-1, 2276-4, 4-8, 2131-10 #### [facility] ([id number]) [address], [facility] [address] [place] [address] Triglyceride [Mass/Vol] 147 mg/dL Normal 27-150 [facility] Comment on above: Performed By: #### F EPR, 15959-9, 2857-1, 2276-4, 2284-8, 2131-10 #### [facility] ([id number]) [address], [facility] [address] [place] [address] Prostate specific Ag [Mass/V ol]on 01-31-2023 PSA SCREEN 0.17 ng/mL Normal 0.00-4.00 [facility] Comment on above: Result Comment: The method used for this test is Camron Cecile DXI chemiluminescent immunoassay. Values obtained by different assay methods cannot be used interchangeably. Performed By: #### F EPR, 14422-5, 2857-1, 2276-4, 2284-8, 9 #### [facility] ([id number]) [address] [facility], [address] [place] [address] VITAMIN B12on 01-31-2023 Cobalamin (Vitamin B12) [Mass/Vol] 273 pg/mL Normal 180-914 [facility] Comment on above: Performed By: #### F EPR, 45125-4, 2857-1, 2276-4, 2284-8, 2132-9 #### [facility] ([id number]) [address] [facility], [address] [place] [address] DRUG SCREEN, UR-RFLEX CONFIR 09-29-2022 ALCOHOL, UR. Negative Normal (< 10 - Cutof) [facility] Comment on above: Order Comment: FACIL ITY: [facility] [id number] Performed By: #### D S-M+ #### [facility] [address] [facility], [address] AMPHETAMINES, UR. Negative Normal (< 500 - Cutof) [facility] Comment on above: Order Comment: FACIL ITY: [facility] [id number] Performed By: #### D S-M+ #### [facility] [address] [facility], [address] BARBITURATES, UR. Negative Normal (< 300 - Cutof) [facility] Comment on above: Order Comment: FACIL ITY: [facility] [id number] Performed By: #### D S-M+ #### [facility] [address] [facility], [address] BENZODIAZEPINES, UR. Positive High (< 100 - Cutof) [place] [facility] Comment on above: Order Comment: FACIL ITY: [facility] [id number] Result Comment: DAMIR ODIAZEPINES URINE SCREEN = POSITIVE Specimen sent for confirmation testing for benzodiazepines - [facility] test # [id number] Performed By: #### D S-M+ #### [place] [facility] [address] [facility], [address] COCAINE METAB. UR. Negative Normal (< 150 - Cutof) [facility] Comment on above: Order Comment: FACIL ITY: [facility] [id number] Performed By: #### D S-M+ #### [facility] [facility] [address] [facility], [address] CREAT, URINE 120.53 MG/DL Normal (20.00 - 370.0) [facility] Comment on above: Order Comment: FACIL ITY: [facility] [id number] Performed By: #### D S-M+ #### [facility] [address] [facility], [address] FENTANYL, UR SCREEN Negative Normal (< 1.0 - Cutof) [facility] Comment on above: Order Comment: FACIL ITY: [facility] [id number] Performed By: #### Emmanuel S-M+ #### [facility] [address] [facility], [address] HEROIN METAB. UR. Negative Normal (< 10 - Cutof) [facility] Comment on above: Order Comment: FACIL ITY: [facility] [id number] Performed By: #### Emmanuel S-M+ #### [facility] [address] [facility], [address] METHADONE METAB. UR. Negative Normal (< 100 - Cutof) [facility] Comment on above: Order Comment: FACIL ITY: [facility] [id number] Performed By: #### D S-M+ #### [facility] [address] [facility], [address] OPIATES, UR. Positive High (< 100 - [facility]of) [facility] Comment on above: Order Comment: FACIL ITY: [facility] [id number] Result Comment: OPIA UDAY URINE SCREEN = POSITIVE Specimen sent for confirmation testing for opiates to include oxycodone - [facility] test # [id number] Performed By: #### D S-M+ #### [facility] [address] [place], [address] OXYCODONE, UR. Positive High (< 100 - [facility]of) [facility] Comment on above: Order Comment: FACIL ITY: [facility] [id number] Result Comment: OXYC ODONE URINE SCREEN = POSITIVE Specimen sent for confirmation testing for opiates to include oxycodone - [facility] test # [id number] Performed By: #### D S-M+ #### [facility] [address] [place], [address] pH (U) 5.0 [pH] Normal (5.0 - 9.0) [facility] Comment on above: Order Comment: FACIL ITY: [facility] [id number] Performed By: #### D S-M+ #### [facility] [address] [place], [address] PHENCYCLIDINE, UR. Negative Normal (< 25 - Cutof) [facility] Comment on above: Order Comment: FACIL ITY: [facility] [id number] Performed By: #### D S-M+ #### [facility] [address] [place], [address] THC METABOLITE, UR. Negative Normal (< 20 - Cutof) [facility] Comment on above: Order Comment: FACIL ITY: [facility] [id number] Performed By: #### D S-M+ #### [facility] [address] [place], [address] TRAMADOL, UR SCREEN Negative Normal (< 200 - Cutof) [facility] Comment on above: Order Comment: FACIL ITY: [facility] [id number] Result Comment: This drug testing is for medical treatment only. Analysis was performed as non-forensic testing and the results should be used only by healthcare providers to render diagnosis or treatment, or to monitor the progress of medical conditions. Performed By: #### D S-M+ #### [facility] [address] [place], [address] BASIC MET PANEL W/GFRon 07-3 -2022 Calcium [Mass/Vol] 8.8 mg/dL Normal (8.6 - 10.6) [facility] Comment on above: Performed By: #### C BC/D, CHEM-B #### [place] [facility] [address] [place], [address] Chloride [Moles/Vol] 98 mmol/L Normal (98 - 107) [facility] Comment on above: Performed By: #### C BC/D, CHEM-B #### [facility] [address] [place], [address] CO2 [Moles/Vol] 34 mmol/L High (22 - 30) [facility] Comment on above: Performed By: #### C BC/D, CHEM-B #### [facility] [address] [place], [address] Creatinine [Mass/Vol] 0.75 mg/dL Normal (0.66 - 1.25) [facility] Comment on above: Performed By: #### C BC/D, CHEM-B #### [place] [facility] [address] [place], [address] GFR- AMER 123.2 ML/M1.7 Normal (60.0 - 161.8) [facility] Comment on above: Performed By: #### C BC/D, CHEM-B #### [facility] [address] [place], [address] GFR-NON AFRIC-AMER 101.8 ML/M1.7 Normal (60.0 - 133.8) [facility] Comment on above: Performed By: #### C BC/D, CHEM-B #### [place] [facility] [address] [place], [address] Glucose [Mass/Vol] 132 mg/dL High (74 - 106) [facility] Comment on above: Performed By: #### Aries MELTON/Emmanuel, CHEM-B #### [place] [facility] [address] [place], [address] Potassium [Moles/Vol] 4.1 mmol/L Normal (3.5 - 5.1) [facility] Comment on above: Performed By: #### Aries MELTON/Emmanuel, CHEM-B #### [place] [facility] [address] [place], [address] Sodium [Moles/Vol] 140 mmol/L Normal (137 - 145) [facility] Comment on above: Performed By: #### rAies MELTON/Emmanuel, CHEM-B #### [facility] [address] [place], [address] Urea nitrogen [Mass/Vol] 13 mg/dL Normal (9 - 20) [facility] Comment on above: Performed By: #### Aries MELTON/Emmanuel, CHEM-B #### [facility] [address] [place], [address] CBC WITH DIFFon 09-13-2022 ABS BASOPHIL 0.07 x10^3ul Normal (0.00 - 0.16) [facility] Comment on above: Order Comment: FACIL ITY: DR CAST - OFFICE [id number] Performed By: #### Aries MELTON/Emmanuel, CHEM-B #### [place] [facility] [address] [place], [address] ABS EOSINOPHIL 0.23 x10^3ul Normal (0.00 - 0.40) [facility] on above: Order Comment: FACIL ITY: DR CAST - OFFICE [id number] Performed By: #### Aries MELTON/Emmanuel, CHEM-B #### [facility] [address] [place], [address] ABS IMMATURE GRANS 0.02 x10^3ul Normal (0.00 - 0.11) [facility] Comment on above: Order Comment: FACIL ITY: DR CAST - OFFICE [id number] Performed By: #### C BC/D, CHEM-B #### [facility] [address] [place], [address] ABS LYMPHOCYTE 1.95 x10^3ul Normal (0.96 - 5.40) [facility] Comment on above: Order Comment: FACIL ITY: DR CAST - OFFICE [id number] Performed By: #### C BC/D, CHEM-B #### [facility] [address] [place], [address] ABS MONOCYTE 0.63 x10^3ul Normal (0.10 - 1.00) [place] [facility] Comment on above: Order Comment: FACIL ITY: DR CAST - OFFICE [id number] Performed By: #### C BC/D, CHEM-B #### [place] [facility] [address] [place], [address] ABS NEUTROPHIL 2.41 x10^3ul Normal (1.50 - 7.00) [facility] Comment on above: Order Comment: FACIL ITY: DR CAST - OFFICE [id number] Performed By: #### C BC/D, CHEM-B #### [facility] [address] [place], [address] Basophils/100 WBC (Bld) 1.3 % Normal () [place] [facility] Comment on above: Order Comment: FACIL ITY: DR CAST - OFFICE [id number] Performed By: #### C BC/D, CHEM-B #### [place] [facility] [address] [place], [address] Eosinophils/100 WBC (Bld) 4.3 % Normal () [place] [facility] Comment on above: Order Comment: FACIL ITY: DR CAST - OFFICE [id number] Performed By: #### C BC/D, CHEM-B #### [place] [facility] [address] [place], [address] Hematocrit (Bld) [Volume fraction] 33.1 % Low (42.0 - 52.0) [place] [facility] Comment on above: Order Comment: FACIL ITY: DR CAST - OFFICE [id number] Performed By: #### C BC/D, CHEM-B #### [place] [facility] [address] [place], [address] Hemoglobin (Bld) [Mass/Vol] 10.6 g/dL Low (14.0 - 18.0) [facility] Comment on above: Order Comment: FACIL ITY: DR CAST - OFFICE [id number] Performed By: #### C BC/D, CHEM-B #### [facility] [address] [place], [address] IMMATURE GRANS (IG) 0.4 % Normal () [facility] [facility] Comment on above: Order Comment: FACIL ITY: DR CAST - OFFICE [id number] Performed By: #### C BC/D, CHEM-B #### [facility] [address] [place], [address] LYMPS 36.7 % Normal () [facility] Comment on above: Order Comment: FACIL ITY: DR CAST - OFFICE [id number] Performed By: #### C BC/D, CHEM-B #### [place] [facility] [address] [place], [address] MCH (RBC) [Entitic mass] 29.8 pg Normal (27.0 - 33.0) [facility] Comment on above: Order Comment: FACIL ITY: DR CAST - OFFICE [id number] Performed By: #### C BC/D, CHEM-B #### [facility] [address] [place], [address] MCHC (RBC) [Mass/Vol] 32.0 g/dL Normal (30.0 - 37.0) [facility] Comment on above: Order Comment: FACIL ITY: DR CAST - OFFICE [id number] Performed By: #### C BC/D, CHEM-B #### [place] [facility] [address] [place], [address] MCV (RBC) [Entitic vol] 93.0 fL Normal (80.0 - 94.0) [facility] Comment on above: Order Comment: FACIL ITY: DR CAST - OFFICE [id number] Performed By: #### C BC/D, CHEM-B #### [facility] [address] [place], [address] MONOS 11.9 % Normal () [place] [facility] Comment on above: Order Comment: FACIL ITY: DR CAST - OFFICE [id number] Performed By: #### C BC/D, CHEM-B #### [facility] [address] [place], [address] PLT 292 x10^3ul Normal (130 - 400) [place] [facility] Comment on above: Order Comment: FACIL ITY: DR CAST - OFFICE [id number] Performed By: #### C BC/D, CHEM-B #### [facility] [address] [place], [address] RBC 3.56 x10^6ul Low (4.70 - 6.10) [place] [facility] Comment on above: Order Comment: FACIL ITY: DR CAST - OFFICE [id number] Performed By: #### C BC/D, CHEM-B #### [facility] [address] [place], [address] RDW-SD 45.2 fl Normal (37.0 - 49.0) [place] [facility] Comment on above: Order Comment: FACIL ITY: DR CAST - OFFICE [id number] Performed By: #### C BC/D, CHEM-B #### [facility] [address] [place], [address] SEGS 45.4 % Normal () [place] [facility] Comment on above: Order Comment: FACIL ITY: DR CAST - OFFICE [id number] Performed By: #### C BC/D, CHEM-B #### [facility] [facility] [address] [place], [address] WBC 5.31 x10^3ul Normal (3.80 - 10.60) [facility] Comment on above: Order Comment: FACIL ITY: DR CAST - OFFICE [id number] Performed By: #### C BC/D, CHEM-B #### [facility] [address] [facility], [address] DRUG SCREEN, UR-RFLEX CONFIR 06-29-2022 ALCOHOL, UR. Negative Normal (< 10 - Cutof) [facility] Comment on above: Order Comment: FACIL ITY: [facility] [id number] Performed By: #### D S-M+ #### [facility] [address] [facility], [address] AMPHETAMINES, UR. Negative Normal (< 500 - Cutof) [facility] Comment on above: Order Comment: FACIL ITY: [facility] [id number] Performed By: #### D S-M+ #### [facility] [address] [facility], [address] BARBITURATES, UR. Negative Normal (< 300 - Cutof) [facility] Comment on above: Order Comment: FACIL ITY: [facility] [id number] Performed By: #### D S-M+ #### [facility] [address] [facility], [address] BENZODIAZEPINES, UR. Positive High (< 100 - Cutof) [facility] Comment on above: Order Comment: FACIL ITY: [facility] [id number] Result Comment: DAMIR ODIAZEPINES URINE SCREEN = POSITIVE Specimen sent for confirmation testing for benzodiazepines - [facility] test # [id number] Performed By: #### D S-M+ #### [facility] [address] [facility], [address] COCAINE METAB. UR. Negative Normal (< 150 - Cutof) [facility] Comment on above: Order Comment: FACIL ITY: [facility] [id number] Performed By: #### D S-M+ #### [facility] [address] [place], [address] CREAT, URINE 75.27 MG/DL Normal (20.00 - 370.0) [facility] Comment on above: Order Comment: FACIL ITY: [facility] [id number] Performed By: #### D S-M+ #### [facility] [address] [place], [address] FENTANYL, UR SCREEN Negative Normal (< 1.0 - Cutof) [facility] Comment on above: Order Comment: FACIL ITY: [facility] [id number] Performed By: #### D S-M+ #### [facility] [address] [place], [address] HEROIN METAB. UR. Negative Normal (< 10 - Cutof) [facility] Comment on above: Order Comment: FACIL ITY: [facility] [id number] Performed By: #### D S-M+ #### [facility] [address] [place], [address] METHADONE METAB. UR. Negative Normal (< 100 - Cutof) [facility] Comment on above: Order Comment: FACIL ITY: [facility] [id number] Performed By: #### D S-M+ #### [facility] [address] [place], [address] OPIATES, UR. Positive High (< 100 - Cutof) [facility] Comment on above: Order Comment: FACIL ITY: [facility] [id number] Result Comment: OPIA UDAY URINE SCREEN = POSITIVE Specimen sent for confirmation testing for opiates to include oxycodone - [facility] test # [id number] Performed By: #### D S-M+ #### [facility] [address] [place], [address] OXYCODONE, UR. Positive High (< 100 - Cutof) [facility] Comment on above: Order Comment: FACIL ITY: [facility] [id number] Result Comment: OXYC ODONE URINE SCREEN = POSITIVE Specimen sent for confirmation testing for opiates to include oxycodone - [facility] test # [id number] Performed By: #### D S-M+ #### [place] [facility] [address] [place], [address] pH (U) 6.0 [pH] Normal (5.0 - 9.0) [facility] Comment on above: Order Comment: FACIL ITY: [facility] [id number] Performed By: #### D S-M+ #### [facility] [address] [facility], [address] PHENCYCLIDINE, UR. Negative Normal (< 25 - Cutof) [facility] Comment on above: Order Comment: FACIL ITY: [facility] [id number] Performed By: #### D S-M+ #### [facility] [address] [facility], [address] THC METABOLITE, UR. Negative Normal (< 20 - Cutof) [facility] Comment on above: Order Comment: FACIL ITY: [facility] [id number] Performed By: #### D S-M+ #### [facility] [address] [place], [address] TRAMADOL, UR SCREEN Negative Normal (< 200 - Cutof) [facility] Comment on above: Order Comment: FACIL ITY: [facility] [id number] Result Comment: This drug testing is for medical treatment only. Analysis was performed as non-forensic testing and the results should be used only by healthcare providers to render diagnosis or treatment, or to monitor the progress of medical conditions. Performed By: #### D S-M+ #### [facility] [address] [place], [address] XR FOOT LT MIN 3 VIEWSon XR FOOT LT MIN 3 VIEWS EXAM: XR FOOT LT MIN 3 VIEWS Please see tibia-fibula x-rays of same day Electronically authenticated by: JESSA ADAM Date: 2022-04-19 17:08 Normal [facility] XR HUMERUS LT MIN 2Von 04-19 [...] by: JESSA ADAM Date: 2022-04-19 16:58 Normal [facility] XR TIB_FIB LT 2Von XR TIB_FIB LT 2V EXAM: XR TIB_FIB [...] by: JESSA ADAM Date: 2022-04-19 17:07 Normal [facility] CBC AUTO DIFFon 01-24-2022 BASO # 0.1 103/ul Normal 0.0-0.1 [facility] Comment on above: Performed By: #### C BC #### [facility] [address] [place] [address] Dr. Terence Hilario Basophils/100 WBC (Bld) 0.5 % Normal 0.2-2.0 [facility] Comment on above: Performed By: #### C BC #### [facility] [address] [place] [address] Dr. Terence Hilario EO # 0.2 103/ul Normal 0.0-0.7 [facility] Comment on above: Performed By: #### C BC #### [facility] [address] [place] [address] Dr. Terence Hilario Eosinophils/100 WBC (Bld) 1.8 % Normal 0.9-7.0 [facility] Comment on above: Performed By: #### C BC #### [facility] [address] [place] [address] Dr. Terence Hilario Erythrocyte distribution width (RBC) [Ratio] 13.4 % Normal 11.0-15.0 [facility] Comment on above: Performed By: #### C BC #### [facility] [address] [place] [address] Dr. Terence Hilario Hematocrit (Bld) [Volume fraction] 34.4 % Critically low 42.0-54.0 [facility] Comment on above: Performed By: #### C BC #### [facility] [address] [place] [address] Dr. Terence Hilario Hemoglobin (Bld) [Mass/Vol] 11.4 g/dL Critically low 14.0-18.0 [facility] Comment on above: Performed By: #### C BC #### [facility] [address] [place] [address] Dr. Terence Hilario IG # 0.04 10e3/ul Critically high 0.00-0.[address] [facility] Comment on above: Performed By: #### C BC #### [facility] [address] [place] [address] Dr. Terence Hilario IG % 0.3 % Normal 0.0-0.5 [facility] Comment on above: Performed By: #### C BC #### [facility] [address] [place] [address] Dr. Terence Hilario LYMPH # 1.6 103/ul Normal 1.2-3.8 [facility] Comment on above: Performed By: #### C BC #### [facility] [address] [place] [address] Dr. Terence Hilario Lymphocytes/100 WBC (Bld) 12.6 % Critically low 20.5-60.0 [facility] Comment on above: Performed By: #### C BC #### [facility] [address] [place] [address] Dr. Terence Hilario MANUAL DIFF REQ NO Normal [facility] Comment on above: Performed By: #### C BC #### [facility] [address] [place] [address] Dr. Terence Hilario MCH (RBC) [Entitic mass] 30.5 pg Normal 25.9-34.0 [facility] Comment on above: Performed By: #### C BC #### [facility] [address] [place] [address] Dr. Terence Hilario MCHC (RBC) [Mass/Vol] 33.1 g/dL Normal 29.9-35.2 [facility] Comment on above: Performed By: #### C BC #### [facility] [address] [place] [address] Dr. Ternece Hilario MCV (RBC) [Entitic vol] 92.0 fL Normal 80.0-94.0 [facility] Comment on above: Performed By: #### C BC #### [facility] [address] [place] [address] Dr. Terence Hilario MONO # 1.0 103/ul Critically high 0.3-0.8 [facility] Comment on above: Performed By: #### C BC #### [facility] [address] [place] [address] Dr. Terence Hilario Monocytes/100 WBC (Bld) 7.7 % Normal 1.7-12.0 [facility] Comment on above: Performed By: #### C BC #### [facility] [address] [place] [address] Dr. Terence Hilario NEUT # 9.5 103/ul Critically high 1.4-6.5 [facility] Comment on above: Performed By: #### C BC #### [facility] [address] [place] [address] Dr. Terence Hilario Neutrophils/100 WBC (Bld) 77.1 % Critically high 43.0-75.0 [facility] Comment on above: Performed By: #### C BC #### [facility] [address] [address] [address] Terence Hilario Platelet mean volume (Bld) [Entitic vol] 8.6 fL Critically low 9.5-13.5 [facility] Comment on above: Performed By: #### C BC #### [facility] [address] [address] [address] Terence Hilario PLT 241 103/ul Normal 150-450 [facility] Comment on above: Performed By: #### C BC #### [facility] [id number] Terence Hilario RBC 3.74 106/ul Critically low 4.70-6.10 [facility] Comment on above: Performed By: #### C BC #### [facility] [id number] Terence Hilario WBC 12.3 103/ul Critically high 4.0-11.0 [facility] Comment on above: Performed By: #### C BC #### [facility] [address] [place], [place] [id number] Dr. Terence Hilario CT HEAD WO CONon [...] white matter anteriorly with questionable loss of hawthorne-white differentiation concerning for recent left frontal lobe infarct. No mass lesion or mass effect. No hydrocephalus. IMPRESSION: 1. No acute intracranial hemorrhage. 2. Questionable extremely subtle hypodensity involving the cortical left frontal white matter anteriorly with questionable loss of hawthorne-white differentiation concerning for recent left frontal lobe infarct. Notification of Results Provider/Agent notified: Dr. Beck Saenz Time/Date notified: 01/24/2022 8:19 AM MST Notifying Staff: Dr. Shook Electronically authenticated by: LALITO SHOOK Date: 2022-01-24 10:20 Normal [facility] PROF 14(COMP METB)on 022 Albumin [Mass/Vol] 3.4 g/dL Normal 3.4-5.0 [facility] Comment on above: Performed By: #### H GB #### [facility] [address] [place] [address] Dr. Terence Hilario Albumin/Globulin [Mass ratio] 0.9 {ratio} Normal [facility] Comment on above: Performed By: #### H GB #### [facility] [address] [place] [address] Dr. Terence Hilario ALP [Catalytic activity/Vol] 73 U/L Normal 46-116 [facility] Comment on above: Performed By: #### H GB #### [facility] [address] [address] [address] Terence Hilario ALT [Catalytic activity/Vol] 24 U/L Normal 16-63 [facility] Comment on above: Performed By: #### H GB #### [facility] [address] [address] [address] Terence Hilario Anion gap [Moles/Vol] 12.4 mmol/L Normal [facility] Comment on above: Performed By: #### H GB #### [facility] [address] [address] [address] Terence Hilario AST [Catalytic activity/Vol] 21 U/L Normal 15-37 [facility] Comment on above: Performed By: #### H GB #### [facility] [address] [address] [address] Terence Hilario Bilirubin [Mass/Vol] 0.3 mg/dL Normal 0.2-1.0 [facility] Comment on above: Performed By: #### H GB #### [facility] [address] [address] [address] Terence Hilario Calcium [Mass/Vol] 8.7 mg/dL Normal 8.5-10.1 [facility] Comment on above: Performed By: #### H GB #### [facility] [address] [address] [address] Terence Hilario Chloride [Moles/Vol] 102 mmol/L Normal 98-107 [facility] Comment on above: Performed By: #### H GB #### [facility] [address] [address] [address] Terence Hilario CO2 [Moles/Vol] 31.5 mmol/L Normal 21.0-32.0 [facility] Comment on above: Performed By: #### H GB #### [facility] [address] [place] [address] Dr. Terence Hilario Creatinine [Mass/Vol] 1.09 mg/dL Normal 0.70-1.30 [facility] Comment on above: Performed By: #### H GB #### [facility] [address] [place] [address] Dr. Terence Hilario EGFR-AF BAHAMIAN >60 Normal >=60 [facility] Comment on above: Performed By: #### H GB #### [facility] [address] [place] [address] Dr. Terence Hilario EGFR-NON AF BAHAMIAN >60 Normal >=60 [facility] Comment on above: Performed By: #### H GB #### [facility] [address] [place] [address] Dr. Terence Hilario Globulin (S) [Mass/Vol] 3.8 g/dL Normal [facility] Comment on above: Performed By: #### H GB #### [facility] [address] [place] [address] Dr. Terence Hilario Glucose [Mass/Vol] 158 mg/dL Critically high 74-[address] [facility] Comment on above: Performed By: #### H GB #### [facility] [address] [place] [address] Dr. Terence Hilario Potassium [Moles/Vol] 3.9 mmol/L Normal 3.5-5.1 [facility] Comment on above: Performed By: #### H GB #### [facility] [address] [address] [address] Terence Hilario Protein [Mass/Vol] 7.2 g/dL Normal 6.4-8.2 [facility] Comment on above: Performed By: #### H GB #### [facility] [address] [address] [address] Terence Hilario Sodium [Moles/Vol] 142 mmol/L Normal 136-145 [facility] Comment on above: Performed By: #### H GB #### [facility] [address] [address] [address] Terence Hilario Urea nitrogen [Mass/Vol] 12.0 mg/dL Normal 7.0-18.0 [facility] Comment on above: Performed By: #### H GB #### [facility] [address] [address] [address] Terence Hilario Urea nitrogen/Creatinine [Mass ratio] 11.0 mg/mg Normal [facility] Comment on above: Performed By: #### H GB #### [facility] [address] [address] [address] Terence Hilaroi DRUG SCREEN, UR-RFLEX CONFIR [facility] 12-30-2021 ALCOHOL, UR. Negative Normal (< 10 - Cutof) [facility] Comment on above: Order Comment: FACIL ITY: [facility] [id number] Performed By: #### D S-M+ #### [facility] [address] [place], [id number] AMPHETAMINES, UR. Negative Normal (< 500 - Cutof) [facility] Comment on above: Order Comment: FACIL ITY: [facility] [id number] Performed By: #### D S-M+ #### [facility] [address] [place], [address] BARBITURATES, UR. Negative Normal (< 300 - Cutof) [facility] Comment on above: Order Comment: FACIL ITY: [facility] [id number] Performed By: #### Emmanuel S-M+ #### [facility] [address] [facility], [address] BENZODIAZEPINES, UR. Positive High (< 100 - Cutof) [facility] Comment on above: Order Comment: [facility]IL [facility] [id number] Result Comment: DAMIR ODIAZEPINES URINE SCREEN = POSITIVE Specimen sent for confirmation testing for benzodiazepines - [facility] test # [id number] Performed By: #### D S-M+ #### [facility] [address] [facility], [address] COCAINE METAB. UR. Negative Normal (< 150 - Cutof) [facility] Comment on above: Order Comment: FACIL ITY: [facility] [id number] Performed By: #### Emmanuel S-M+ #### [facility] [address] [facility], [address] CREAT, URINE 80.50 MG/DL Normal (20.00 - 370.0) [facility] Comment on above: Order Comment: FACIL ITY: [facility] [id number] Performed By: #### Emmanuel S-M+ #### [facility] [address] [facility], [address] FENTANYL, UR SCREEN Negative Normal (< 1.0 - Cutof) [facility] Comment on above: Order Comment: FACIL ITY: [facility] [id number] Performed By: #### D S-M+ #### [facility] [address] [facility], [address] HEROIN METAB. UR. Negative Normal (< 10 - Cutof) [facility] Comment on above: Order Comment: FACIL ITY: [facility] [id number] Performed By: #### Emmanuel S-M+ #### [facility] [address] [place], [address] METHADONE METAB. UR. Negative Normal (< 100 - Cutof) [facility] Comment on above: Order Comment: FACIL ITY: [facility] [id number] Performed By: #### D S-M+ #### [facility] [address] [place], [address] OPIATES, UR. Positive High (< 100 - Cutof) [facility] Comment on above: Order Comment: FACIL ITY: [facility] [id number] Result Comment: OPIA UDAY URINE SCREEN = POSITIVE Specimen sent for confirmation testing for opiates to include oxycodone - [facility] test # [id number] Performed By: #### D S-M+ #### [facility] [address] [place], [address] OXYCODONE, UR. Positive High (< 100 - Cutof) [facility] Comment on above: Order Comment: FACIL ITY: [facility] [id number] Result Comment: OXYC ODONE URINE SCREEN = POSITIVE Specimen sent for confirmation testing for opiates to include oxycodone - [facility] test # [id number] Performed By: #### D S-M+ #### [facility] [address] [place], [address] pH (U) 5.0 [pH] Normal (5.0 - 9.0) [facility] Comment on above: Order Comment: FACIL ITY: [facility] [id number] Performed By: #### D S-M+ #### [facility] [address] [place], [address] PHENCYCLIDINE, UR. Negative Normal (< 25 - Cutof) [facility] Comment on above: Order Comment: FACIL ITY: [facility] [id number] Performed By: #### D S-M+ #### [facility] [address] [place], [address] THC METABOLITE, UR. Negative Normal (< 20 - Cutof) [facility] Comment on above: Order Comment: FACIL ITY: [facility] [id number] Performed By: #### D S-M+ #### [facility] [address] [facility], [address] TRAMADOL, UR SCREEN Negative Normal (< 200 - Cutof) [facility] Comment on above: Order Comment: FACIL ITY: [facility] [id number] Result Comment: This drug testing is for medical treatment only. Analysis was performed as non-forensic testing and the results should be used only by healthcare providers to render diagnosis or treatment, or to monitor the progress of medical conditions. Performed By: #### D S-M+ #### [facility] [address] [facility], [address] Coding Summary.on 12-09-2021 Coding Summary. CD:[id number] Gh 0bWw+PGhlYWQ+VM6LBAVxN 29hkXKxiA5JQ1xTVP2MEAM LAJJMGA6RCY0bkYP8DSnvQ 2VybiAv PytiyDWtGP52USk1QBI2hX yfZUxfsB4idLHeP6t8BjDh VD35qR75INhdYUBjLaR1Qa ZpbjsgbWFy Q8rhEfVhzLNkQxv+PHRhYm xlIHdpZHRoPScxMDAlJyBz sOynDP3xDf7fIHIwULKwsA xhcHNlOiBj x3vdAAXfOMplAR8ncDnlT3 DquNR2TXZez8f6He60aII+ BCHcLKK4fIjlKWxvb151Zi Kzn8gpKER9 wPFuGTrkAOI0K21zm7T0IS HcJKKtRBS4jCY9mP9pqAdt sadbJ5CrjEDiNxJ4EUP7jV OybJ2bzVvv ygvlhA4hOxk+O23YDF7LSN KGTI6CJxj4B3PiYxkbuHC+ VZ88NNCmYC42rNUvnZXyw1 lwuCb6XeNh XBMnFZQ8cTwpAAhrt0FwVF TdA47dlYTvd7W9IFUayStx hCIoNjOjwMJ1gC1yXTnlzd vnq9ctujxa Kpdqa3napq29sH74B52fYZ xoVTVzQFH2JEGlZIEdmUqk jr5wpV9xKb5+NGsxd8tkz8 mytPq3TpHe NGZisiJvoYuhHHT1r3FgAt 09Z6NysCpix1WyTac0vs00 kAZsl2F3mHB0CCnlIIVkmN 7pATvjCpQ2 RGUvZdOjiW22hIMrYZijPm 6tyUfjkPynKW9tGDQrwtyn ARQskN0tFYYsnPZjrXaoTO 4wNTBpbjtm q953RxPbJOB8JRXskAXqN4 UkmZ2rUuZiIGOxXGSrB5Cg wSKoLJnuE339SOcnFyT8QZ JcnqDxO7Eh OUEckPfdUzV7e0N6Ec0Uv5 AhzcukSMW5TVtsETPpTfR2 YjFzWxO5S4HbMob3NRHerI ibIW8zY3We LNHlhsativncyPE6GRIgJT ZotJ63sKIySUtaVy7ly2H9 j179CIMhZFWhuK46Ab4gqE ogMTBwdCBU oF5dzcxts6trqfmeReQnEJ YcDJy3PNk0MIUgoVlsZiBo GXR2HgH0PNN1aSMafG2gvF lobsungW4n Oyc+L10vbS7fTQG9DKL8uz wjZOSihzFzDX69YV10E7Tc PjwvdGFibGU+PGRpdiBzdH qbQU2nLoCe r7bsu3XqYRdjA3UhDPHnTG adEmf5NWEdPYU6sXR7gJ7l OQCcTMpuq2U8wEA1F4Smbv Wazm9xq7bz AXBhDMxzS03zpEEbw3Q3BQ ApfQD7YBEqpRkeHbIgyX99 Oyc+TPHbbWudh0QcZvqoc1 sas9tvnMu6 IjIaOEPqbbRlyHswDOO1g6 SsHq18T82iQXzoEPBxBJYa NRFuNLIuuUehcf1tdR9dCh 8+PGNvbCB3 vQW7kR1mCVPfTyA5PNdgZ3 55XpBmgGKdZwhws5qvq8gl aVj0RvUnBSUbbsPdjOprUZ R9j0UtHt37 J74wYFngLRXmJEQiDLEcDO KykVnfzx8swQ7sFg4+PC9j c9ehtc37vA99wGX+PHRkIH W8eGllLVal DDVzxR0mIIasQpC2OZLvMc MtlG19pGCpBHtcYd4hpBvu fVkwAZ8cCNEdssznp101Ws Hrc3zsDQNz bNAcVNwmVOP3U32po9U1FB PdXPUlWJR5oBC0kA9bmIlm bjogbGVmdDsgdmVydGljYW ugEMlzZ653 IHRvcDsnPlBhdGllbnQgTm EkHWr8A5IkQxw7PCIvjOmx WG6ulYQeDQcnBs7upFwnvS gyDX4iCGQf qhvyg940JaCdk6caUKSzzW LjJHjiONZ6W18bh5K6PDMk BBSrOIG5qPJ6nS0icXcuxs ogbGVmdDsg hxPrkOdrMWfwAGvaA784FE RvcDsnPkJpcnRoIERhdGU6 JJ03KK29bJPop1S5jGL3I8 BhZGRpbmct dhywcGV1AFWtJEEctK89Qh 5yoNuwGb3rSWOjFSG0VZIe cADjG5PmqH7tCkGeEAHmQC YhG1ZpgTVo LYxlO497LUsqGrU7CNDfoe CrE5EmFTDrvXfaOiM4u8S4 Yb8OB8F6AK01HS55lFXbt5 G9bZE3Q9Sg XBUwnbuxtdbmeZR0MQKuKK AlyE78St6boIvtVf5eHGUn LBC7CJMgzZIzF0LxmA2kMa AjMDAwMDAw I8OevHUaSJhsH273NUzkCy Z7JCKieaEfD7HeRAEdoGvk NwG0m5W7Dc4OBCa2CS01ID 42lAArf6I9 dQB8C9YkPOYrxvkmvltruQ A0CBUyIWDigA20Sf2qvQql Dt8oAQPiAAF5KSXfzJVmD9 VowU7aYlYe OLZoETTvA0XvwJDuMAktA2 05AKmpNfO5GVCnmuZoU7Zk HECayQxeYmU8c5M9Cw7MRC QpOY02LPV1 cYX1UW52RJ14O8YyKlahqG FibGU+PHRhYmxlIHdpZHRo TQmwZFBeEwQyyJiwBU0aBj 9yZGVyLWNv iLyhkQDzIhWql7cqLEBpLU bsPI4zcApvQ4WjyGD6AXWb s2t8Jj70V22sX4NndCW+PG XppVR2qDI0 pT2aUuTgHiR9XWncZ175Of SouGMjDyxea2igl0kewDj0 VjV4HQIbxgMzaPioBFY2z4 WwSz92C89w IHdpZHRoPSIxNSUiIHZhbG gwam9clE7mOi4+PGNvbCB3 rYN9nB2nUuOwRjJ7AOplR6 49InRvcCIv Fxpdp9faz0ivxSh6WwTyZY DzhsLauSavVJZ8o5NmJq34 X6NnzNcgl4EfEyi9bn04uR Jqk0X2wPH8 R6PtPLFwsaobxDSrwGteYZ 6aDPCkhgkdEPRmsU1rOMJc T3m9AcVaZmH9CAzvF8Cwxh P3WSSasYTo RAjeUUJ2W08rl1T3RNVkHK MiCKZ5zDX8vY9clLnekixq bGVmdDsgdmVydGljYWwtYW aoD553FSIl jFxnKXTdpU8lDGSogTSzkU hbKU1hHPVxctifAfBDMsyC IhVrDOJQYl2ASL39QJ54gH Jef7H6iXE0 A3XgPDZrzfnyiihbpXP7QY XoZBFurC82sMFtOBrwIv5g p5U8z585RNErQXRtkN06Yd 9udDogMTBw hALMpU3pvznck4zpjibeBc SpZXXzXHk6MPr3UJVbjJrq OuKeIKE1WsL6UXZ4kXVioN 1hbGlnbjog yZ8iTjw+WYlsLTNxAJr7GY wvdGQ+TIReYTS7pSjiOLqg NGMxpW3uBSJkA2a6RzHuNg Z4GFgdW8Uq HYZaliytMj65tJ1fMiDhWz S3HUawH7IpfvZ6UXYnfXMu XNwfISB9P19gw8X9MOHxEC RrQCC1xAF2 aW7tcRkpcswiaYWmzJpmiw UosLzcPKgvJXzlE136JBMx tBwpRntjTSkxWXRmLJ63UC 83cDGna9I8 nKN6E4BrXWHmhnoipvdvbE S8RJMsZSSvuW37vDEePPdb Yc3na2X5n385SDXoOLYvoA 28Jr4ygBwx AZDypYOHzL4sfuequ1qntw hgWwRdHZElKHk1KIo0YBLx zRsdBvUfDAF8ZiD0RJX4hC NjfX9pdEct bqayjK8xGsx+TWFsZTwvdG Q+UMCnABD5pXevZTfgRFGr mV4uQXGwE3q9BwVtDpW3KT naU2VoUHXp mpeuLa38fI4wEzVcPlI6LS liY8UjoqQ9NWKdsJXoNMer AJR9T75hk4V4ZRUkQOJdPP S1iLZ2tQ4c bGlnbjogbGVmdDsgdmVydG sdKFrnQVxmS749HNUqzRtq WxycNfPYoz7fOJ5iUlvlvZ Q+PV29wt35 S0WmTdvxNhj7WANwRJC5zD E6lX0nWKEhYDztp6P1rUN2 D6OkfoBnoa9er0rwMVInWO tgW43tbUNi w8K2IVUyhUY6UXJcdFseHh KpaJ34Mqh+LHLctMbww5Os Jkvty1tzt2irqNv5DvAgSR IgdmFsaWdu SZE7v4CmQz93P01zAVgjDV FcBRPbDTSyRJHbiRsnlm3u nD5tLd6+HGRlhAN1kKL1uJ 1lEsAlYaA4 VTmgT206SwQrdZKzFexza2 hif1qgmEf9JlUzUULkxhIt dYmrEYJ3h5HvFn30U3AggR mqc8TiQkv0 je67iVXwr1C2zDW2Y4MkRG DbaauxdHUbfOgqIY6fWXHj lhquPWZnwD3yKHVaI9s3Wo CrBbU0OWwf K0KomtN3BTIkrWSsFKEmyG WRjB7fvsopf2yanuwqYyBe ZRSnHRn8HFm4CZSdeWhxVb LjRJU7HzO0 EAZ9fTJmtR2chGxgzswsfR 9wOyc+UFp0q7aaeVFtOW8t uQW9GP16HR31nLYek4L5mO W5Q5GxYTCi uqewuxvfbPY6HAJbUPBmoK 08Lo0hjEkxPp5vHUTcTHD0 XKEdqRBmG3NrwU5yOeOzOC ZyKBNwX8Kc sSFiYGzbK749WLpjBzD5OI YiujMdI6WpSRZibInrOqL8 m8H6Em0AWM41ZB26LF25rA Btj1B7nVO9 U5OcECBrpofqdhcjzAN6DO XnJSBmeS09Xa1uqAuzDo9o RRFpSRC1CFLlmOJmP1TyvK 9yOiAjMDAw UWFyN9QmkLVdOLfzM056AP ggHjA3PZPqwqHtS7NgJXKv oLyaByT9o7N8Lk9GYg37SM 54NI47vPTh r8V5yHN0Y7QaACFvdsdfjv eahIP6HWDjYMLgiB95Fn2l pWquMt7tIWOjPEU8PUXkzI HeN2JrdM6s EmWkAPDoLOJfH4QxkSLzLB mfK887WZsvJyP3GWRrtvJq H6HdWUHcoIyoRbF1j2T5Ca 6ARLtrclj9 L8FaUdpouIH+AR30USKiDP 79yYOxvYToz3paoKn7JrTi ZOGzDOC7sKtyCJbbc5XdKJ MwF01qpWVc c2U6 (more content not included)... Normal [facility] Blood Gas Art, with Lytes, G joseline, [place] 12-01-2021 a/A Ratio Art 64.70 % Normal >=0.80 [facility] Comment on above: Performed By: #### 4 [id number] ####[facility] [address] [place] [address] AaDO2 Art 30.4 mmHg High 5.0-15.0 [facility] Comment on above: Performed By: #### 4 [id number] ####[facility] [address] [place] [address] Allens Test Not Applicable Normal [facility] Comment on above: Performed By: #### 4 [id number] ####[facility] [address] [place] [address] Base Excess Arterial 2.8 mmol/L Normal >=2.8 [facility] Comment on above: Performed By: #### 4 [id number] ####[facility] [address] [place] [address] cCa2+ Art 4.83 mg/dL Normal 4.40-5.30 [facility] Comment on above: Performed By: #### 4 [id number] ####[facility] [address] [place] [address] cCl- Art 103.0 mmol/L Normal 101.0-111.0 [facility] Comment on above: Performed By: #### 4 [id number] ####[facility] [address] [place] [address] cGlu Art 110 mg/dL High 55-99 [facility] Comment on above: Performed By: #### 4 [id number] ####[address] [address] cK+ Art 4.3 mmol/L Normal 3.5-5.3 [facility] Comment on above: Performed By: #### 4 [id number] ####[address] [address] cLac Art 1.6 mmol/L Normal .5-2.2 [facility] Comment on above: Performed By: #### 4 [id number] ####[address] [address] paralegal instructor+ Art 140.0 mmol/L Normal 135.0-145.0 [facility] Comment on above: Performed By: #### 4 [id number] ####[facility] [address] [place] [address] Drawn by MAGALIE Invalid Interpretation Code [facility] Comment on above: Performed By: #### 4 [id number] ####[facility] [address] [place] [address] FCOHb Art 1.1 % Low 1.5-4.9 [facility] Comment on above: Result Comment: Refe rence range Nonsmoker <1.5% Smoker <5.0% Heavy Smoker <9.0% Performed By: #### 4 [id number] ####[address] [place] [address] FIO2 BG 21 Invalid Interpretation Code [facility] Comment on above: Performed By: #### 4 [id number] ####[address] [address] FMetHb Art 0.2 % Normal 0.0-1.9 [facility] Comment on above: Performed By: #### 4 [id number] ####[address] [address] FO2Hb Art 88.7 % Low 93.0-100.0 [facility] Comment on above: Performed By: #### 4 [id number] ####[address] [address] HCO3 (Bld) [Moles/Vol] 26.7 mmol/L High 22.0-26.0 [facility] Comment on above: Performed By: #### 4 [id number] ####[address] [address] Hemoglobin (Bld) [Mass/Vol] 11.1 g/dL Low 12.0-17.0 [facility] Comment on above: Performed By: #### 4 [id number] ####[address] [address] Oxygen saturation in Blood 89.9 % Low 95.0-100.0 [facility] Comment on above: Performed By: #### 4 [id number] ####[address] [address] P CO2 Arterial 51.4 mmHg High 35.0-45.0 [facility] Comment on above: Performed By: #### 4 [id number] ####[address] [address] P O2 Arterial 55.7 mmHg Low 80.0-100.0 [facility] Comment on above: Performed By: #### 4 [id number] ####[facility] [address] [place] [address] pH Arterial 7.361 Normal 7.350-7.450 [facility] Comment on above: Performed By: #### 4 [id number] ####[facility] [address] [place] [address] Sample Site R Radial Normal [facility] Comment on above: Performed By: #### 4 [id number] ####[facility] [address] [place] [address] Sample Type Arterial Draw Normal [facility] Comment on above: Performed By: #### 4 [id number] ####[facility] [address] [place] [address] FT Blood GasesOrdered By: Ra eliseo Herrera [...] - 2.2 mmol/L [facility] Resp Auto SS paralegal instructor+ Art 140.0 mmol/L Normal 135.0 - 145.0 mmol/L [facility] Resp Auto SS Drawn by MGAALIE Invalid Interpretation Code [facility] Resp Auto SS FCOHb Art 1.1 % Low 1.5 - 4.9 % [facility] Resp Auto SS FIO2 BG 21 Invalid Interpretation Code [facility] Resp Auto SS FMetHb Art 0.2 % Normal 0.0 - 1.9 % [facility] Resp Auto SS FO2Hb Art 88.7 % Low 93.0 - 100.0 % [facility] Resp Auto SS HCO3 (Bld) [Moles/Vol] 26.7 mmol/L High 22.0 - 26.0 mmol/L [facility] Resp Auto SS Hemoglobin (Bld) [Mass/Vol] 11.1 g/dL Low 12.0 - 17.0 gm/dL [facility] Resp Auto SS P CO2 Arterial 51.4 mm[Hg] High 35.0 - 45.0 mmHg [facility] Resp Auto SS P O2 Arterial 55.7 mm[Hg] Low 80.0 - 100.0 mmHg [facility] Resp Auto SS pH Arterial 7.361 Normal 7.350 - 7.450 [facility] Resp Auto SS Sample Site R Radial (12/01/21 2:28 PM) Normal [facility] Resp Auto SS Sample Type Arterial Draw (12/01/21 2:28 PM) Normal [facility] Resp Auto SS HEMOGLOBINon 12-01-2021 Hemoglobin (Bld) [Mass/Vol] 11.1 g/dL Critically low 14.0-18.0 [facility] Comment on above: Performed By: #### H GB #### [facility] [address] [place] [address] Dr. Terence Hilario LAB TESTINGon 12-01-2021 RECV HEADER SEE SCANNED REPORT I N HPF Normal [facility] Comment on above: Performed By: #### H GB #### [facility] [address] [address] [address] Terence Hilario REV FROM REF LAB 12/01/21 [facility] Comment on above: Performed By: #### H GB #### [facility] [address] [address] [address] Terence Hilario SENT TO REF LAB 12/01/21 [facility] Comment on above: Performed By: #### H GB #### [facility] [address] [address] [address] Terence Hilario Physician Orderon 12-01-2021 Physician Order [id number] 0CD:[address] [facility] CT CHEST WO CONon 11-11-2021 CT CHEST [...] by: KAY MARROQUIN Date: 2021-11-11 06:41 Normal [facility] Ambulatory Visit Summaryon 0 08-18-2021 Ambulatory Visit Summary RUEDA, KYLIE :1950 Visit Date:08/18/2021 Ambulatory Visit Instructions Your [...] MD, Cintia Hernandez Where: [facility] Patient Educationon 08-19-19 Patient Education [...] Follow these instructions at home: ? Take arzx-uwc-qeuztie and prescription medicines only as told by [...] You d (more content not included)... Normal [facility] Urology Office/Clinic Noteon 08-18-2021 Urology Office/Clinic Note [...] [facility] [address], [place] [phone] Additional Instructions: Patient Education Benign Prostatic Hyperplasia [...] tab(s), Oral (more content not included)... Normal [facility] Comment on above: Result Comment: Elec tronically Signed By: Cintia Alves Jr., MD\.br\Date and Time Signed: 08/18/21 12:02 EDT\.br\Electronically Co-Signed By: Liliane Blake MA\.br\Date and Time Co-Signed: 08/18/21 11:54 EDT Main OR Intraoperative Recor mahesh 06-10-2021 Main OR Intraoperative Record IntraOp Document Type FT Summary Primary Physician: Cintia Alves Jr., MD Finalized Date/Time: 06/10/21 11:39:18 Pt. Name: KYLIE RUEDA/Sex: 1950 Male Med Rec #: [id number] Physician: Cintia Alves Jr., MD Financial #: [id number] Pt. Type: A Room/Bed: [place] [address] Admit/Disch: 05/21/21 08:27:49 - 05/21/21 13:00:00 Institution: [...] Salazar Role Performed HEATH Surgeon - Primary Line Director - Primary Time In 05/21/21 10:02:00 05/21/21 10:02:00 05/21/21 10:02:00 Time Out 05/21/21 10:47:00 04/07/22 10:45:00 05/21/21 10:47:00 Procedure CIRCUMCISION ADULT(.) CIRCUMCISION ADULT(.) CIRCUMCISION ADULT(.) Comments DR SALAZAR SUPERVISING Last Modified By: Michael RN, Marifer Rodriguez RN, Marifer Rodriguez RN, Marifer Young 05/21/21 10:47:53 05/21/21 10:47:53 05/21/21 10:47:53 Entry 4 Entry 5 Entry 6 Case Attendee Michael REED, Marifer Esteves CST, Mimi Alicea CST, Merlyn Baltazar Role Performed Line Director - Primary Staff - Other Scrub - [...] and tissue Entry 1 Skin Integrity Intact, [place], Warm, and Skin Abnormality No Dry Outcomes [...] CIRCUMCISION A (more content not included)... Normal [facility] Patient Educationon 06-10-19 Patient Education Urology Circumcision [...] personal one. It is often based on buddhist, social, or cultural beliefs. Circumcision is most [...] 01/28/2001 Document Revised: 07/17/2018 Document Reviewed: 07/17/2018 [employer] Patient Education ? 2019 [employer]. [facility] Office/Clinic Noteon 06-09-2021 Urology Office/Clinic Note [...] months 08/09/2021 EDT [facility] [address] [place] [address]- Additional Instructions: Patient Education Circumcision Information Billy [...] Daily o (more content not included)... Normal [facility] Comment on above: Result Comment: Elec tronically Signed By: Shawn Allen MD, Cintia Hernandez\.br\Date and Time Signed: 06/09/21 11:51 EDT\.br\Electronically Co-Signed By: Billy Bell.br\Date and Time Co-Signed: 06/09/21 11:49 EDT IntraOperative Documentson 0 06-02-2021 IntraOperative Documents [id number] 0CD:127 Normal [facility] Coding Summary.on 05-28-2021 Coding Summary. CD:[id number] Gh 0bWw+PGhlYWQ+EH6NKAOnO 15deJDvtI7PE9ePDU7FKUV HPVINSI4XXD9btBV6DSwaK 2VybiAv OtifnOZwUY29TPe6AXV5pP yzNBfjaW8slGAsE5u8NwLa SY46sK69RZlyCFDfXpF2Kq ZpbjsgbWFy K3wiPxXdoBNwIys+PHRhYm xlIHdpZHRoPScxMDAlJyBz tVdwJN4gGr2hNVRbQXRylE xhcHNlOiBj g4urVTAuWViiZT0nbJunF3 WcmSD2YHNjt2m9Bi65rUD+ SYYzODU6bNqpYTazx141Nw Xxi4ehWII1 oDJvJPcfJZA1P18lg9E5ZQ GiOIIzBRO6vTC1iL2yiYyk nclqL9AtsMMpMzK7EWA8pN EjuB6mkWhe wgtpaV3eZsn+R25WGM5OLS JKPT8DIsr7F5WaFmlycDX+ RW35ROIfTR41wKIjqLMyw5 hreGt3KxUf LVZvHUM2hXpxKFhxv7PsLJ WaP36inGYfp3C1NKDbpRfe kPErGiPstDC5vJ2aHYgdnb enn8etwifm Ztwxq2qqmo34xB49O33qEA ddEEFhQSO5QKCnJWJkuQyi cp4daT8vRm7+BFjip8stm2 boaVv5JlRp AMJslgZevNhgYBR4g1EpWa 88Q4DzvOphc6UpXsy5ke10 yOGwn1P8gNH6CMqwUPMyyV 4vTQxoYaK2 MDSaFwDcdL73fXKbMWlxCw 3zsQthnCmkAD2dVJErifhx OMEhuZ3dFMShnTUiwJycTH 4wNTBpbjtm r835WsUsCUC6QXCwyJTxT4 XqzB2jMsLfDQNpZJXuS5Ea bOCgDEqwK867DRxkYrP8XB LioaMcD3Vu FCTmyRjpPwL8v1A4Wy2Ch4 XwrmdxATQ2CAxoIOS8MqC4 JsXuAmJ0V0YjMjn5CCXuiB qqYL6gM4Cm ZZWpqlhksuvmlTO4JBSgZQ BehW08xOLrJJowIv6sc8S1 e965JQBqONHexN94Yj1xwU ogMTBwdCBU kX0jksdgi6fbjbpsOaElFB HvKEb5ZJw5AOYtkMqwXfLv XKV4LkT1LVA6gPYzdE3wtV hqqbmexM7x Oyc+P54hjY3qVLG9EFE2pb xeQXDjxsCzAO14AJ46S3Mb PjwvdGFibGU+PGRpdiBzdH axAR0uJlUj w6vnq1JyWYqaE7BaXMGhUO oyMgr4LPMyDHK5hPH1zL4n FKEkPOahs2W6pUJ0Z0Fqes Htkf8lb4rb TAGjMOrrN95ggTApc7Y2RH IcpLH8NCDmsDxjZpFqhB81 Oyc+AVNirWrev6KaJhjfs9 wtm0jcdWp4 BiMrBPClvpRmsHbuTRD4p8 PzAp21U89nFDyzEKXgJVUd JFNzBYIdwJvrbo7tnK4pXm 8+PGNvbCB3 pPR7vK2fFDAuIsS0SZleY3 40VeIgfPWkJlrdo5sup0fa yIr0UbUdAZZupyElzVcvGR O6h9AvAi71 I46fCDifJQWoDSOpQDBsZG MkoEgsrx2ueM1jCp0+PC9j b4urgj63eE18vSW+PHRkIH J4iCrsUDiu ICEdbN0sQCpgXnU3TAMcSm KyzD91bJGwYMwiNw6orOac zMrzQT7nIRAjlwewb688Ur Qmz6qvFRCl mEEjOJnnEKU9O18gs1M6VD NtFOGvFVY5bWR9kM0kvSiv bjogbGVmdDsgdmVydGljYW mfSChjQ931 IHRvcDsnPlBhdGllbnQgTm SuIBz7R6YhRis8VWDqxKoi JC2nmFMeSXziKm4oiYmzfD xyOE9nEVGy smntg561WqNyf9ivYRYepJ UdTKtnOHV2X88hb1Z7RUPi ERBmAVZ7sJD7bN0ibKurug ogbGVmdDsg fyGxdQzlCVraNUnjI563HE RvcDsnPkJpcnRoIERhdGU6 VZ03RL19lAJkq4H9wFN9A0 BhZGRpbmct mrdkgEW3PEIpWYCppE84Ga 5xpVwsJu1aXSVpTLH6LHTn sUTmE5OeqG1wShSgIBOqZJ JqY7GeyEPa KTqdV465UOhvPaR2MXZjcg QbG9BaZALyxUqkWfJ0a2S1 Bt4QS3N5GU74CN35oSCta3 P9hDK7V0Sj PTZjzgkosnqgrCR5LSIaVO ObuC40Bh9tiBkdJz1mJBEm PZH9YICdeTAeY1WyfO6gLw AjMDAwMDAw I3OveNEcGIujI447AVjvNc F2XZSfxqEiY2DcBCDavLjg EpC9e6Q8La6KMMz6FM42VH 46oVUbn0X6 sJG8Q0GyKQYogjepashpyP X8DXZkTZUtaA39Po6jlTgs Gq3qGVYsQRR0JWIajIZeO8 DbtK7vKwDl QXRxTRMrV3PavOAzZJknE3 27ISfxGzZ8BQZzopYrP6Bk LKQczMmiCpO4m7B6Ox8CGU UbXN07SLM1 hPJ6HZ41NE17V8KvPxmzwU FibGU+PHRhYmxlIHdpZHRo LIduZICzSnVkdGhnYL3kLv 9yZGVyLWNv iJukqJGoDgRcz5agMQDwXD wfWH7syBgsY1OklEQ1NCQp l7y3Xb28X07cW1RerXT+PG SyeCY1uJX7 xE6mUoEoBsC4ABpwC590Cs OpnPGcDqelc7dfx6ljmBi1 FlW2BYXdmkKdzMhgLIO0c3 VdDa19G12f IHdpZHRoPSIxNSUiIHZhbG gtaz9twI3qOw8+PGNvbCB3 mOQ0qO9jOxTfSqF5OOpfG5 49InRvcCIv Joetj3hjl0esqVc1JaEtWE DdtoTwyMgyPDP7z3PkGj92 K1EktKytj7BdBzr1ek62kO Gcc4N7gGE7 O8DcPNRzcxxonPYgoFufXJ 7pPQSicapkFEEwuJ4kSMUz O2q8VeZhYvB3HKwwX0Daua Y5QVVgmEPh RFsfDCV5N24uz1D1LGOgUJ HeFMN2vYC0vE2eaQevpnwj bGVmdDsgdmVydGljYWwtYW kuN965IVBo eHyxIMVuvQ6lSPNuiIMxhM ueAO1vSDIzjddkBqNYQeeO PfHrUUGGEy9NIC65ZX03nV Rxg4Q4aYZ0 G0ImPDKdqwijciruxPM3AS GhMIQsbA50qMKgGLebNc2l y3A6w381CKRkBGUeaY25Ty 9udDogMTBw vBCFrW8bxmlgp8byrlcsZe LlDTBdVRk0DVi8NZMksZxk DuIpAFQ8HkI6VTV8uDXnfA 1hbGlnbjog tE2cNtf+JYqnWKVcXOy0TL wvdGQ+PWJeOOL3wErmUAtz OXItoY2fKLGmX8q4FkYgLs K8RBhuG0So WTDbxopeMc38uG4nKsEjIf S4KSdoF6DiefM0JUEngHOi INorEPY5F87rc3C2NHYmWH AmTQH8sHD5 aF0qlMzxwgjglHFiwWufwj YfkZhhIDhsJJcnR591ZEZt rEthVfqbLRqlCSKbEB73IV 59hCVgz2F7 jEN1M6ErQMXfkruaquiqlZ J3UNDxSWBapK76oIKgFOjc Xd3pm8X0t792VDSgRGTrfR 73Xy0vyZxp NBPzhUVErQ5anhfzx9zwqq dxCrAuGYRpAXy3TAy8AFLu oWwtOlDrHFG7OeC0EZC9mE AaeM3vwMkz epltxX7oGyv+TWFsZTwvdG Q+JRWjKHM3yYbpGXjbIDSb yR3tNTSaE2h1VwYfKtG0RA gfF8MtTJIo zkkhWl47aE2yUpSpKsW1QZ vxV6FyfkZ0KSXmqOTpPMom LUB4L61jj7H4QGFtVGYbUH D1eQO4gB8x bGlnbjogbGVmdDsgdmVydG qpSBhzTXajY312TFCfpNat IpZwLhWlDZDlfgmoA4UcMG CRXUfnZ7Ke B9OwoPviyYY+DS21ii38N6 OwQplfBrf7YYMaSEF7sJJ9 fA3uTTUqXAemi0W7iDS8K6 CzsxBfjk6i q0ujLQPsIBvvV81uoSNqs3 C5WUKwmVH2ODHakNyuVlYq uL23Fdr+QZBqzBdag3FiYp vdn5xpm6tl tUo0JbMzYPMvfqJanIkoSH F9e3UtBe09Z47tVGadHBUl HXKoQQHzDGRbiTqtvo0dsE 9wIi8+PGNv nDT8bBF3eT9nErNrMwI9OV ejW301NwMspGLqNwtnt7hf n7mnqNq7WiHeKHUeraNgdT xdQWH1r7Or Yh43I2VtcUzhq7HeUrc8jp 67xHXtf1T1jSV0W5AzTTXx pvhmaPCjzHvjOB7uKEZyra bcFBLcxN2y DAVdL2v4DtQjRxN6PHbuI2 IyfkG4OGNnfMDcZMBtwALN pJ4dfgdrb1sqpjajAqXoDS HwNQn9GDd5 PWEyoPjjKbIaTYO8NrV0LI Z0yTLveN0wdIzygptpcX8g Oyc+ULb8z3uhfTRaQA2lqK H2XR77RW71 oLSwp7S9wOX5Y9SbXVXbxf bocabbjJS9KSDnWICzpN89 Gb0hiZscSn2mFAOdMBC8CN DquSEuN3Yq cR8dSaAsBAJqIMKgH4PehM MfJQppZ360GAvzJbC8ONTk npLrO8WbJPLwvFmnIhP3b2 W4Dt6FFW80 EJ50FY59iRNqi8Y1pVK0K5 ZyCWLeulbqccdvuFC4BAMb SKJakR06Iw5rzByaCp6kRO MbHUI5QVDx lFBmQ8BmbO6yRbIbPMAaHD VqK0ZwxFKiERttQ976BRck CrO8LUTqfwGeN4EfUMFiaI lgCdI7t6A1 Ni5DJr67SS46DV09mGEbk0 A5sVO9X1MgNUGjjtlktcdh hOY7OQHiCGNwkC89Wm7ptQ beHr9gARSt MPW6CEIfcBYtK6TxnG7uYe GgIPZzPBPjL1LrbTUsEZma A644ALnkIxB9EMToozPiN7 FsLWFsaWdu FmS4e0I8Ih7XIWzwxcd3A0 RkPjwvdHI+ZY64TOIzQT75 wQVpkMRve8pzeKn1DjTsQW SuTRP6wYac PSdi (more content not included)... Normal [facility] Progress Note-Physicianon Progress Note-Physician Patient: KYLIE RUEDA Age: 70 years Sex: Male : 1950 Associated Diagnoses: None Author: Rhys Salazar Jr, DO Postoperative Information Post Operative Note: Post Anesthesia Care Unit. Anesthetic utilized: General. Health Status Allergies: Allergic Reactions (Selected) Severity Not Documented Contrast media (iodine-based)- Anaphylaxis. Problem list: All Problems BPH with urinary obstruction / SNOMED CT [id number] / Confirmed Back injury / SNOMED CT [id number] / Confirmed Complaint of insomnia / SNOMED CT [id number] / Confirmed Phimosis / SNOMED CT [id number] / Confirmed Urge incontinence / SNOMED CT 739165399 / Confirmed Resolved: CVA (cerebrovascular accident) / SNOMED CT 974452870 Resolved: Acid reflux / SNOMED CT 910763470 Resolved: Hx of shortness of breath / SNOMED CT 8820443547 Resolved: High blood cholesterol level / SNOMED CT 85175315 Physical Examination Vital Signs 05/21/2021 11:25 EDT [...] 24 hr (more content not included)... Normal [facility] Comment on above: Result Comment: Elec tronically [...] bedtime), # 30 cap(s), Refills(s) 6, Pharmacy: [facility], [address], cm, 04/28/21 12:55:00 EDT, Height/Length [...] BPH with urinary obstruction / SNOMED CT 8857185337 / Confirmed Back injury / SNOMED CT 7109688347 / Confirmed Complaint of insomnia / SNOMED CT 411519796 / Confirmed Phimosis / SNOMED CT 7578101960 / Confirmed Urge incontinence / SNOMED CT 202881731 / Confirmed Resolved: CVA (cerebrovascular accident) / SNOMED CT 040431805 Resolved: Acid reflux / SNOMED CT 872857139 Resolved: Hx of shortness of breath / SNOMED CT 0730420272 Resolved: High blood cholesterol level / SNOMED CT 51416474 Histories Past Medical History: No active or resolved past medical history items have been selected or recorded. Family History: No family history items have been selected or recorded. Procedure history: History of hernia repair (9058005230). Arthroscopy of knee (561135319). Complex reconstruction operations on wrist and hand(excluding arthroplasty) (102453794). Cardiac catheterization, combined right and left heart (81508135). 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 Social History Social & Psychosocial Habits Alcohol [...] arm Mean Arterial (more content not included)... Normal [facility] Comment on above: Result Comment: Elec tronically Signed By: Rhys Salazar Jr, DO\.br\Date and Time Signed: 05/27/21 09:32 EDT Postoperative Documentson Postoperative Documents [id number]#1. 00CD:127 [facility] Consent for Anesthesiaon Consent for Anesthesia [id number]#1. 00CD:127 [facility] Consent for Procedure/Surger yon 05-22-2021 Consent for Procedure/Surgery [id number]#1. 00CD:127 [facility] Discharge Instructionson Discharge Instructions [id number]#1. 00CD:127 [facility] IntraOperative Documentson 0 05-22-2021 IntraOperative Documents [id number]#1. 00CD:127 [facility] IntraOperative Documents [id number]#1. 00CD:127 Normal [facility] Preoperative Documentson Preoperative Documents [id number]#1. 00CD:127 Normal [facility] Preoperative Documents [id number]#1. 00CD:127 Normal [facility] Consent for Treatmenton Consent for Treatment [id number]#1.0 0CD:127 Normal [facility] H&P Updateon 05-21-2021 H&P Update [id number]#1 .00CD:127 Normal [facility] Inpatient Patient Summaryon 05-21-2021 Inpatient Patient Summary [address] [address] [facility] Clinical Discharge Instructions PERSON INFORMATION Name: KYLIE RUEDA PHYSICIANS Admitting Physician: Shawn Allen MD, Cintia Hernandez Attending Physician: Cintia Alves Jr., MD PCP: DAVID GARCIA, JENNY Discharge Diagnosis: Phimosis Comment: PATIENT EDUCATION INFORMATION Instructions: Circumcision, Adult, Care After, Hvfl-no-Fogc; Post Op Patient Instructions - FT (Custom) (CUSTOM) Medication Leaflets: Follow up: With: Address: When: DESIRAE MEDINA [address] [place], [place] [id number] [facility] () Within 2 to 4 weeks Comments: Postop visit wound check. MEDICATION LIST New Medications [facility], [address] [place] [id number], [phone] acetaminophen-oxycodon e (Percocet 5 mg-325 mg oral [...] day (in the morning)., heart Comment: Normal [facility] Main OR PACU I Recordon Main OR PACU I Record PACU Phase I Docum ent Type FT Summary Primary Physician: Alves Cintia Allen MD Finalized Date/Time: 05/21/21 11:29:49 Pt. Name: KYLIE RUEDA/Sex: 1950 Male Med Rec #: [id number] Physician: Cintia Alves Jr., MD Financial #: [id number] Pt. Type: A Room/Bed: [place] [address] Admit/Disch: 05/21/21 08:27:49 - Institution: Case Times [...] By: Tonja Gómez RN 05/21/21 11:29 Normal [facility] Main OR PACU II Recordon Main OR PACU II Record PACU Phase II Document Type FT Summary Primary Physician: Cintia Alves Jr., MD Finalized Date/Time: 05/21/21 12:59:05 Pt. Name: RUEDAKYLIE/Sex: 1950 Male Med Rec #: [id number] Physician: Cintia Alves Jr., MD Financial #: [id number] Pt. Type: A Room/Bed: / Admit/Disch: 05/21/21 08:27:49 - Institution: Case Times [...] By: Iesha Majano RN 05/21/21 12:59 Normal [facility] Main OR Preoperative Recordo n 05-21-2021 Main OR Preoperative Record PreOp Document Type FT Summary Primary Physician: Cintia Alves Jr., MD Finalized Date/Time: 05/21/21 10:19:02 Pt. Name: MOHIT KYLIE /Sex: 1950 Male Med Rec #: [id number] Physician: Cintia Alves Jr., MD Financial #: [id number] Pt. Type: A Room/Bed: [place] [address] Admit/Disch: 05/21/21 08:27:49 - Institution: Case Times [...] Signed By: Marifer Rodriguez RN 05/21/21 10:19 Normal [facility] Monitor Recordon 05-21-2021 Monitor Record [id number]#1. 00CD:127 Normal [facility] Monitor Record [id number]#1. 00CD:127 Normal [facility] Operative Reporton 2 Operative Report Patient: KYLIE RUEDA Age: 70 years Sex: Male : 1950 Associated Diagnoses: None Author: Cintia Alves Jr., MD Postoperative Information Procedure: Elective circumcision Date/ Time: 05/21/2021 10:55:00 Preoperative Diagnosis: Phimosis (NSC78-KB N47.1, Discharge, Medical). Postoperative Diagnosis: Phimosis (EKF22-WP N47.1, Discharge, Medical). Performed by: Cintia Alves [...] Loss: 00 ml. Complications Anesthesia type: General. [facility] Comment on above: Result Comment: Elec tronically Signed By: Shawn Allen MD, Cintia Hernandez\.br\Date and Time Signed: 05/21/21 11:00 EDT Outpatient Surgery Discharge Instructionon 05-21-2021 Outpatient Surgery Discharge Instruction [place] [id number] Patient Discharge Instructions PERSON INFORMATION Name: KYLIE [...] ___ Date Follow up: With: Address: When: DESIRAE QUINTERORY [address] [place] [id number] [facility] (1) Within 2 to 4 [...] to serve you. Thank you for choosing [facility] HERE ARE THE MEDICATION CHANGES THAT OCCURRED DURING YOUR HOSPITAL STAY New Medications [facility], [address] [facility], [place] [id number], [phone] acetaminophen-oxycodon e (Percocet 5 mg-325 mg oral [...] cannot use soap and water, use hand shipping coordinator. ? Change your bandage as told by your doctor. ? Leave stitches (sutures), s (more content not included)... Normal [facility] Patient Education - Texton 0 05-21-2021 Patient [...] cannot use soap and water, use hand shipping coordinator. ? Change your bandage as told by [...] it is okay. ? Take or apply bzxm-jxq-awqjgup and prescription medicines only as told by [...] 07/19/2008 Document Revised: 01/13/2018 Document Reviewed: 02/08/2017 [employer] Patient Education ? 2019 [employer]. [facility] Consultation Noteon 05-21-19 22 Consultation Note [id number]#1.00 CD:127 [facility] Outside Recordson 05-20-2021 Outside Records [id number]#1. 00CD:127 [facility] RAD - CT Reporton 05-19-2021 RAD - CT Report [id number]#1.00 CD:127 [facility] Coding Summary.on 05-14-2021 Coding Summary. CD:[id number] Gh 0bWw+PGhlYWQ+NB4JTDJaJ 01urUJjjK7KO6xBRW8TJXB AFCNHMM9URI2mpFT6POtxU 2VybiAv JpqqlNIaBJ08YXj6OKX9pI eoYLhntG4stGWpV6n2SsQf ND71sA46DCgcOLXxMcS8Dj ZpbjsgbWFy L2ttVrAdtVCnTod+PHRhYm xlIHdpZHRoPScxMDAlJyBz aOtcSN3oIf6eXSPxIEGnaI xhcHNlOiBj w5ssSDFnSOeyWC0wfDqqX2 KyuKG3GEHtc5h2Zs04eXR+ XQWaIYL0zIuaDAqgs760Fu Epg2gmHRB2 vZXtLQbpLZY7D43fu6Q0MB WmEYKaQAJ9hAS1qX9reXwt kemuK9KkfSOcEuC7LGA2bP VmmL7guAmw oqfzhK5kLsv+T48GQS0UJU GKQQ8CCas2Z5IzChdvyBT+ BA64TVHbGM85uRJwfXHsk5 ukaVg0SdCm KWJrTDH9jYafCBavr8FwGA SeS06faCCkb8K3HFFoqViq rYHgQrKgnEM9pB5xEKaarn hcu7aqhkvn Xxugo1totn24yW96V94cRQ rvEDQvXPD0SAStIRTyiGzv ro4nuD8ePx2+XGelj2lzy7 dabOs3CmQj VMAmimFoiGbeVTP3b5UzTx 61E4XzwPhvt3EdSxn1ju36 yGKwn2W2eNU3UXgkTGEutQ 3nVRanIpO0 YWZfVmTnxI67nVNnQPmfHa 6igWzmbGysBW3jOFMdvdtk UYQjzG3mJNXnbJPbeBnsQK 4wNTBpbjtm y070JhRjOIT5KOFnrZDbR9 BlqO0fOwApURJwFPUeH0Cz sGCuMOmrC885ULjlXmJ6HA IvypLpO8Bq CCZsvUvhAyX0e5N0Rg3En5 OjwcewWYP5BEdpULHaIxVb LnGfTzV7G3EbDpy7AXJibG bxKB0mF4Ha OWDdbtkfqactrAK5KDOcEK CkxO91oZToODopMk8ly6T8 v931LTRrYBPpeR92Ca0hhR ogMTBwdCBU zX9vrtjys4hvedrdKlKjAM JdHFi5LCc6RBJgvZsbWkGe KAM7UiI7LPI4qRMmfF4zsH gfpmxmhX7u Oyc+M40dlB6qICH6DLS5rc veDRPvekKaXI18RV37Q0Gq PjwvdGFibGU+PGRpdiBzdH xcDY6sYdNj h3hel5ClCZelQ5NjMLAsWF syBpu1LZRxLHR2mEK5oX5w HWXrIEnto6U9kME5X4Yxry Flsl4jp6tx VPWvPKfqH13fmHTan1A2XH AeuFE8EZIanOjtMqDvcY89 Oyc+UGNrtBnpw4BfSmnys9 kiv1pngAm3 DpCoWFNahdZtdFedYBM6b9 OiVt33A33tXGgfLIEcHUEn QDQfAHOazVkeih9gxO4lIu 8+PGNvbCB3 iWQ7gZ7vUTEtLsN1FPmeW4 76SmYvzYHhDqakr3qrz7ws eSw6BrWwPWEydrHfrJvlHA Q9e7MhCo21 A45gVAojOEKsLRFfRANfFJ RpxBkxun7wnC3mFm7+PC9j t9jmoh54pV26vEO+PHRkIH R4hDflOZex YTOcjO2iRQfgTlK3NKPaPy VjiQ56nFSeQVadKk9jfVjs cBhjGX4oCZXnqfdfr596Td Ujn7sbOFDm aHCbUTyeXEG1R14mj8N8SM TkYEEyQRM4tTS5jJ8lrCtg bjogbGVmdDsgdmVydGljYW ioGNlmA582 IHRvcDsnPlBhdGllbnQgTm FdNBn8Z6XuMgl2TTVvyTir ZD4itVRqWAvkBd9ttWetjD eoQW5oHWCw cfiga365FuSvm4sqZLPxrF ZdUMncYJM8A42iu4R2PUMq ATFqRQF6iRG0fX8nyPvxum ogbGVmdDsg hsXouKntZVhnXHylU762NE RvcDsnPkJpcnRoIERhdGU6 VF05KJ17tVJjg1F7aAB9U3 BhZGRpbmct kbugaXO5WBCsKULrgO69Xe 9leXftDe9qFSCoUDX3KBYw vVNwN7XapM4qUbEfUJXmSU ShB6UkuVJm KSliA097SFjiKcM1AKSzvt YjG0TlTRYweDeyXuS8y8F6 Zc6PW5U3IU91ID63mXMjj4 R0vZQ6I0Yt IBUqoyjfgelvqXM2EUIhAA TksQ58Fi7yvUkwVy5gNNZu UPT6UUIeiZSoC3VziW8tSj AjMDAwMDAw Y7BroFAnDRvvO825EUzzNl Y2LWUvaiEcA7MtODWdxRjx OyS8g2A8Sz6QTLa6MC49FS 22yLIke7P6 tOA5X0EzFTOmtockyciddX U7WGStFHXzuK62Ij7clXrp Ea2bFWHqZTG3TWYchLHuQ0 TpyS7vMxAi CUZgDPJvC8HklNIsGHdvN1 73JYrqUgE3GOZxpcGlK9Qa HSAidYnsCyP5e8W9Kd2HUO SqVB23FTT1 lPP7OL39HL97O7SfKdyuqK FibGU+PHRhYmxlIHdpZHRo MNwjFHQpCbYhhQxqIU3qJu 9yZGVyLWNv gUptbAWkTgMzn8qmXLXmSA uzTY8swGtjU7DatXR6ORWq i7u0Wx98T86aJ8MnxOV+PG DxqMS4bLA2 pU4rBfZcOjQ7CCttS364Rj LyuZQpTtzjy0wfv9wgcBx7 KiA8CEBcnoIpcUgbOUY4s8 CuKd46P92r IHdpZHRoPSIxNSUiIHZhbG jxep6tfY6cOw1+PGNvbCB3 yUU9xL0uXwCvDwL5MIiwO2 49InRvcCIv Vomdz4onx8ryhUj6TlOuPK RxqzRwcIooZRH3u0HuFj43 J7GngAhug8IbRlt3zh87mV Lab3E2dJP8 O8ZrFDOcpbygnUOlyFzkXF 2cVWMyflrdWWVfiB6gPUEm M2g6TpTaBaD8PHwjT1Ivlo B9FXLeqKCr ZOdqICA1B49ez2X4HFRwYH EuTWB8iVB3kM8cuLmppgma bGVmdDsgdmVydGljYWwtYW yeD665TFMu dEueNJDquR1oDQDjaIGhjH sdSW5rYYMnksytLuMFWicB VhNbHQLYBw6YJX58CH42sI Oqj1V5gUN2 D2KmHRBmkcqxdfdebLB6LB BcHGNzzV28nMRqQEaiFi8w f2Q5w302ZELxMJEdaQ49Qa 9udDogMTBw bPERtL2jjgisn1xngnieWh DaCQBgWQj0BQa3XJDdnNct ZnClSMH5HnK6MJV9eXVpsS 1hbGlnbjog tF3fKtf+JGjhTRThCFn7MO wvdGQ+ECBnBOS6cTpjWRsw YBDkrO6zUQQmS2q2VvOaOk Q6VHbnR3Sy HGLrqriyYr06mR0mHxJqWb U9SZjpL8NfveY4TMJqzMRe GBrhWCQ8X55ll5U3LKHfGU JpZYV6zQF2 qC0vbWvlrxmjrTWxdPlohl WaiNnzQAxqXSreX638TIMx uDkjYafyXVpnVJVnXR28YM 39xPLss6R9 wDH6W4JkQOJxjncynqvyiC Q7DRXjJMGvuA39yKFrDZgm Wh9ia9E8s812RALxYLYiiT 09Iu0jgLcv LQUmcJATwC1yeofwl2njsj xfWgWxGBUoPIu0XPo0JQPc eYkzQjGuWHD2RaY0JSU8tA OmyH0tvXjb iytagR2mXtt+TWFsZTwvdG Q+SAFuFLH0dFgxBSatBRRc sM6lANCoV7s0QzCmIcG5IZ orT2VzIIEc erhoWh77lE8nHgMiSkS5HM czO3PfslG5WXYseDGiYCjq LUE7D86at0W9DCCkWQLcNS B8pJW2qT9o bGlnbjogbGVmdDsgdmVydG cvUQbaZKyfB799VEGrfAmr Vz83aLWqaMgdwlN2V6ErEe wvdHI+PC90 IYHiAJ70hUBjgUVrt6wxhN d3RzWwDUWjFZX1yDcdNJae q3FaQHReX91uhKIrk6H4TD NvbGxhcHNl QsCzoPE7pW6rGZqnliigs3 wufyhcJeikl7wold37jH35 D38dBCdsUEUxRSNyTSPdKN UesSsauc4b jS4sZg8+FDNlaQO8gCT2tU 2pZtMbJpL2GPhzC440PkEy nMQtUdivi0wow2ecaIc9Rb IwJSIgdmFs rZwlSXL2y8VuUd06U40wNN dpZHRoPSIyMCUiIHZhbGln rf2kcU6gLg3+YU4hf9ctdo 21eM29xMY+ XJIyDKO8jZsaQNpvEEEakR 2fOGfoLgZ3BIPjRlGgrO97 qTPwOJzkFp5dpIfeuWmwOM 4wNTBpbjtm y326LmFpz6mfQKBarPLnIW otYGU2Y92qy0C4DQMpLBHh EGC5aBR6nF1vpSojkqjyiI VmdDsgdmVy iJmiDMdgIKqhZ680GFJknP ykZpThbOLyR6wsdbJZZL2f OjwvdGQ+IZZeLLE4rQyeDF luEZFsmI4i FMIcN0e9AaKzCjO8BSbgW2 DhmiK0NWJepTVuKFHzbSMN wI4pnfsmc1rkigkgLgPwBG XdDBh3QNg0 KHWufOynRmBdCTE1CxM2MC U2lZLwlM1xpJkiiifbyK6p Oyc+RklOOjwvdGQ+PHRkIH Q0wVfiKRjv SQYscJ3hOHHuJ4v4UeSzDk Y6XVquU6CzwlA2GVHyiGHu MPExfTNDdR9dzpqoh3damq ogIzAwMDAw GZo7RSj6QBMckNqrDkBeWI R7CnI6JWD7gTJxzX1orSyi viqqhH0iOhd+TVJOOjwvdG Q+PHRkIHN0 mNvsMJwkVKTqjI7sDEDyM0 r0FlExFtE5VVehN8YmlzN0 VHVnzGUrWIUngNOIrX4utr mfw8dgdtio KaGjOWHcOBv7LUw1YSUacM qmNpGgHWB7TnI7HZQ4tRWh iM0dgYzlubyddQ4iVtj+UG Y7WQJ0SV93 SA24X9FcTowsbPTpkMQ+PH RhYmxlIHdpZHRoPScxMDAl XkMlkTmyKF8pWc4nQRNoQI NvbGxhcHNl OiBj (more content not included)... Normal [facility] XR Chest 2 Viewson XR Chest 2 [...] MD Transcribed by: SENA Technologist: WILFRIDO Normal [facility] Auto Diffon 05-12-2021 Basophils/100 WBC (Bld) 0.4 % Normal 0.0-2.0 [facility] Comment on above: Order Comment: Order Added by Discern Expert. Performed By: #### 1 [id number], 0033819, 9097001, 1793372, 90589366 ####[facility] [address] [place] [address] Basophils/Leukocytes Auto (Bld) [Pure # fraction] 0.0 E9/L Normal 0.0-0.2 [facility] Comment on above: Order Comment: Order Added by Discern Expert. Performed By: #### 1 2363044, 0051749, 7805971, 3143735, 08928051 ####[facility] [address] [place] [address] Eosinophils/100 WBC (Bld) 0.2 % Normal 0.0-8.0 [facility] Comment on above: Order Comment: Order Added by Discern Expert. Performed By: #### 1 5679054, 0504022, 4178694, 4777627, 47060969 ####[facility] [address] [place] [address] Eosinophils/Leukocyte s Auto (Bld) [Pure # fraction] 0.0 E9/L Normal 0.0-0.5 [facility] Comment on above: Order Comment: Order Added by Discern Expert. Performed By: #### 1 2715233, 6427780, 1768909, 2510704, 59034497 ####[place] [address] [place] [address] Lymphocytes/100 WBC (Bld) 15.1 % Normal 14.0-50.0 [facility] Comment on above: Order Comment: Order Added by Discern Expert. Performed By: #### 1 8507481, 1476973, 7339980, 1921068, 73877566 ####[place] [address] [place] [address] Lymphocytes/Leukocyte s Auto (Bld) [Pure # fraction] 1.8 E9/L Normal 1.0-4.0 [facility] Comment on above: Order Comment: Order Added by Emma Expert. Performed By: #### 1 1711286, 7409098, 3948799, 6237740, 71869128 ####[place] [address] [place] [address] Monocytes/100 WBC (Bld) 11.7 % Normal 4.0-14.0 [facility] Comment on above: Order Comment: Order Added by Emma Expert. Performed By: #### 1 2591431, 2704357, 8335258, 5436081, 74404145 ####[place] [place] [address] Monocytes/Leukocytes Auto (Bld) [Pure # fraction] 1.4 E9/L High 0.2-1.0 [facility] Comment on above: Order Comment: Order Added by Emma Expert. Performed By: #### 1 5990371, 1745732, 0256260, 4955031, 74594527 ####[place] [address] [place] [address] Neutrophils/100 WBC (Bld) 72.6 % Normal 36.0-75.0 [facility] Comment on above: Order Comment: Order Added by Emma Expert. Performed By: #### 1 2411115, 9665411, 3725763, 4905237, 97524115 ####[facility] [address] [place] [address] Neutrophils/Leukocyte s Auto (Bld) [Pure # fraction] 8.8 E9/L High 2.0-7.5 [facility] Comment on above: Order Comment: Order Added by Discern Expert. Performed By: #### 1 2306255, 2088423, 2566748, 2075229, 23001572 ####[facility] [address] [place] [address] BMPon 05-12-2021 Anion gap [Moles/Vol] 12 mmol/L Normal 6-16 [facility] Comment on above: Performed By: #### 1 9871370, 2390652, 9737346, 6092384, 64546370 ####[facility] [address] [place] [address] Calcium [Mass/Vol] 9.0 mg/dL Normal 8.9-11.1 [facility] Comment on above: Performed By: #### 1 6398853, 7092461, 2858086, 0092344, 55330588 ####[facility] [address] [place] [address] Chloride [Moles/Vol] 101 mmol/L Normal 101-111 [facility] Comment on above: Performed By: #### 1 9781734, 3425320, 5638331, 4445913, 43689940 ####[facility] [address] [place] [address] CO2 [Moles/Vol] 27 mmol/L Normal 21-31 [facility] Comment on above: Performed By: #### 1 9338340, 5388937, 8188263, 9522285, 77399157 ####[facility] [address] [place] [address] Creatinine [Mass/Vol] 0.9 mg/dL Normal 0.5-1.3 [facility] Comment on above: Performed By: #### 1 9889744, 7967882, 1917564, 4492201, 49332398 ####[facility] [address] [place] [address] Glucose [Mass/Vol] 140 mg/dL Normal 55-199 [facility] Comment on above: Result Comment: If t his glucose result represents a fasting glucose, interpretation should refer to the following reference range: 55-99 mg/dL Performed By: #### 1 2567652, 2992966, 9883968, 5765603, 50968466 ####[facility] [address] [place] [address] Potassium [Moles/Vol] 3.8 mmol/L Normal 3.5-5.3 [facility] Comment on above: Performed By: #### 1 6437451, 6590442, 2590772, 2714655, 91939941 ####[facility] [address] [place] [address] Sodium [Moles/Vol] 136 mmol/L Normal 135-145 [facility] Comment on above: Performed By: #### 1 0337955, 1905852, 0178024, 8568748, 99591393 ####[facility] [address] [place] [address] Urea nitrogen [Mass/Vol] 13 mg/dL Normal 5-21 [facility] Comment on above: Performed By: #### 1 7935709, 9478120, 7649276, 6694181, 62149737 ####[facility] [address] [place] [address] Urea nitrogen/Creatinine [Mass ratio] 14 No Units Normal 10-20 [facility] Comment on above: Performed By: #### 1 8303261, 4959872, 0580186, 9154538, 73963556 ####[facility] [address] [place] [address] CBC w/ Auto Diffon 2 Erythrocyte distribution width (RBC) [Ratio] 13.3 % Normal 10.9-14.2 [facility] Comment on above: Performed By: #### 1 3093637, 1796285, 9676893, 0467861, 77850092 ####[facility] [address] [place] [address] Hematocrit (Bld) [Volume fraction] 31.7 % Low 37.7-49.0 [facility] Comment on above: Performed By: #### 1 4212694, 3909887, 2920325, 7140023, 24171664 ####[address] [place] [address] Hemoglobin (Bld) [Mass/Vol] 11.1 g/dL Low 13.5-17.5 [facility] Comment on above: Performed By: #### 1 1555500, 8992771, 8715598, 2672830, 80948231 ####[address] [place] [address] MCH (RBC) [Entitic mass] 29.9 pg Normal 27.0-34.0 [facility] Comment on above: Performed By: #### 1 0175796, 3511746, 3672698, 3743365, 58651175 ####[address] [address] MCHC (RBC) [Mass/Vol] 34.9 g/dL Normal 31.4-36.0 [facility] Comment on above: Performed By: #### 1 5768854, 9660041, 9033253, 2792242, 52433940 ####[address] [address] MCV (RBC) [Entitic vol] 85.5 fL Normal 80.0-100.0 [facility] Comment on above: Performed By: #### 1 [id number], 6156130, 7167495, 7469619, [id number] ####[address] [address] Platelet mean volume (Bld) [Entitic vol] 7.5 fL Normal 6.4-10.8 [facility] Comment on above: Performed By: #### 1 [id number], 0467506, 3345260, 7180197, 12723937 ####[facility] [address] [place] [address] Platelets (Bld) [#/Vol] 295.0 E9/L Normal 150.0-500.0 [facility] Comment on above: Performed By: #### 1 [id number], 7156916, 5963883, 2961752, [id number] ####[facility] [address] [place] [address] RBC (Bld) [#/Vol] 3.7 E12/L Low 4.3-5.9 [facility] Comment on above: Performed By: #### 1 [id number], 2886660, 4457788, 0545660, [id number] ####[facility] [address] [place] [address] WBC corrected for nucl RBC Auto (Bld) [#/Vol] 12.2 E9/L High 4.0-11.0 [facility] Comment on above: Performed By: #### 1 [id number], 8609065, 6859144, 9658007, [id number] ####[facility] [address] [place] [address] CHEMISTRYOrdered By: SYSTEM SYSTEM on 05-12-2021 Anion [...] rate/Area] mL/min/1.73 m2 Normal >=59mL/min/1. 73 m2 [facility] Chem S Glucose [Mass/Vol] 140 mg/dL Normal [...] 31.1 s Normal 25.1 - 36.5 second(s) [facility] Auto Coag INR Coag (PPP) [Relative time] 1.2 {INR} Invalid Interpretation Code [facility] Auto Coag PT Coag (PPP) [Time] 14.9 s High 10.2 - 12.9 second(s) [facility] Auto Coag Consent for Treatmenton 04-15 Consent for Treatment [id number]#1.0 0CD:127 Normal [facility] HEMATOLOGYOrdered By: SYSTEM SYSTEM on 05-12-2021 Basophils/100 WBC (Bld) 0.4 % Normal 0.0 - 2.0 % [facility] Basophils/Leukocytes Auto (Bld) [Pure # fraction] [...] 8.8 E9/L High 2.0 - 7.5 E9/L [facility] HEMATOLOGYOrdered By: Whitley pires on 05-12-2021 Erythrocyte distribution width (RBC) [Ratio] 13.3 % Normal 10.9 - 14.2 % [facility] Hematocrit (Bld) [Volume fraction] 31.7 % Low 37.7 - 49.0 % [facility] Hemoglobin (Bld) [Mass/Vol] 11.1 g/dL Low 13.5 - 17.5 gm/dL [facility] MCH (RBC) [Entitic mass] 29.9 pg Normal 27.0 - 34.0 pg [facility] MCHC (RBC) [Mass/Vol] 34.9 g/dL Normal 31.4 - 36.0 gm/dL [facility] MCV (RBC) [Entitic vol] 85.5 fL Normal 80.0 - 100.0 fL [facility] Platelet mean volume (Bld) [Entitic vol] 7.5 fL Normal 6.4 - 10.8 fL [facility] Platelets (Bld) [#/Vol] 295.0 E9/L Normal 150.0 - 500.0 E9/L [facility] RBC (Bld) [#/Vol] 3.7 E12/L Low 4.3 - 5.9 E12/L [facility] WBC corrected for nucl RBC Auto (Bld) [#/Vol] 12.2 E9/L High 4.0 - 11.0 E9/L [facility] PT & PTTon 05-12-2021 aPTT Coag (PPP) [Time] 31.1 second(s) Normal 25.1-36.5 [facility] Comment on above: Result Comment: Hepa rin therapeutic range (represented by Anti-Factor Xa activity of 0.2 - 0.4 U/mL) corresponds to PTT of 56.6 - 109.0 sec. Performed By: #### 1 [id number], 3291050, 9745277, 1479119, [id number] ####[facility] [address] [place] [address] INR Coag (PPP) [Relative time] 1.2 {INR} Invalid Interpretation Code [facility] Comment on above: Result Comment: INR results are specifically intended to assess patients stabilized on long-term Anticoagulation therapy suggested INR?s ?Less Intensive Anticoagulation? 2.0 ? 3.0 Conventional Range 3.0 ? 4.5 Performed By: #### 1 [id number], 7572729, 6674124, 0175622, 67660310 ####[facility] [address] [place] [address] PT Coag (PPP) [Time] 14.9 second(s) High 10.2-12.9 [facility] Comment on above: Performed By: #### 1 [id number], 8444196, 8472942, 3205792, 13558784 ####[facility] [address] [place] [address] eGFRon 05-12-2021 GFR/1.73 sq M.predicted among blacks MDRD (S/P/Bld) [Vol rate/Area] mL/min/{1.73_m2} Normal >=59 [facility] Comment on above: Order Comment: Order added by Discern Expert. Result Comment: eGFR is race adjusted. AA=. Performed By: #### 1 [id number], 1604743, 5944270, 5651116, 98580514 ####[facility] [address] [place] [address] GFR/1.73 sq M.predicted among non-blacks MDRD (S/P/Bld) [Vol rate/Area] mL/min/{1.73_m2} Normal >=59 [facility] Comment on above: Order Comment: Order added by Discern Expert. Result Comment: Drive In Waiter/Waitress theron kidney disease could be indicated at eGFR's of less than 60 mL/min/1.73m2. Kidney failure is indicated at less than 15 mL/min/1.73m2. Performed By: #### 1 [id number], 2570598, 4497400, 2674134, [id number] ####[facility] [address] [place] [address] Ambulatory Visit Summaryon 0 04-28-2021 Ambulatory Visit [...] influenza virus vaccine, inactivated (Fluad Quadrivalent PF [id number]) loratadine (Claritin) montelukast omeprazole (omeprazole 40 mg [...] Where: [facility] [address], [place] [address]- Medications What How Much When Instructions Unchanged [...] virus vaccine, inactivated (Fluad Quadrivalent PF ) Intramuscular Once Contact prescribing physician if questions [...] body store (more content not included)... Normal [facility] Patient Educationon 04-29-19 Patient Education Nutrition Calorie [...] You could (more content not included)... Normal [facility] Urology Office/Clinic Noteon 04-28-2021 Urology Office/Clinic Note [...] bedtime), # 30 cap(s), Refills(s) 6, Pharmacy: [facility], 181, cm, 04/28/21 12:55:00 EDT, Height/Length Dosing, 115, kg, 04/28/21 12:55:00 EDT, Weight Dosing Efrem (more content not included)... Normal [facility] Comment on above: Result Comment: Elec tronically [...] Charlie Farmer MD 04/10/21 Final result Normal [facility] Coding Summary.on 04-06-2021 Coding Summary. [id number] Gh 0bWw+PGhlYWQ+RU6GVXVxF 81goKHshM7EU5uLLN1VCAM OZBFKEG7GLJ3liSS6TYxnL 2VybiAv AmvpbZXdMZ16TZo0SDU8iH glJEajvH8bnRKdG7w7XjTb OL23nV59KDfgEKQtAnA0Ai ZpbjsgbWFy N9wfNtGsgHLzGqe+PHRhYm xlIHdpZHRoPScxMDAlJyBz qPrxAM6dMj4zZQXoIPIxpR xhcHNlOiBj b4lcFSHpGIdbMA0daPtrD8 JgaZK5CENrm1c0Tj84fJB+ ZXTvVJZ3oAfnBXxdw331Pn Fmb0ncXMK3 nBSzWYquBTS0N59se4Z9PT BhTCGjVNS3dXG1bB0fdNcw jpmwG7QbcLYkRpF7QLQ3eB DteY4cgQti esdtaN4eGwv+V73DGD0OLM ITVZ7XWkw1W1JuVnwuxZH+ WQ43AXFjJH48cRBykUEno5 cnqLc8EnPe DOMtXAP9rAwxIDjxf8OuZF ItN10frZCrr0I0LINvmJvs nYQvWiQxzLE8gR2uSJgjmj out0kkvklb Bvmhg4unfg71pS33A53bOK gsUWJfOQG2JCMgYYTmxYdz qe2bxG7nYp6+KInwr6ibc5 blsDu1PnMi BJJbqrKyxHscORE1j5LdMo 15G0IntAjrx0ZpYjs3hs46 kLSmt6S0oUY5UIpiFKNrjE 8cXIqsYhV0 XDNtSkOqeX35qDHnYKqvGu 4teQxjdNriUC0fUAFvivjj EVJloO6tLUWbeUAorIqcKM 4wNTBpbjtm v056AsYnZOK0YWImnWUvS6 GpbR5iTfAwRYOiVKIvH2Gd eDWiREuoR001SVtrVvW0WL ZrttVfF6Im QTOdjEqjTkZ9i2X2Ye6Lj3 KcwhxhBTI6ZMruHZImYfDb XbPgYlP6A0HyHng1ANOgwC rwZF3hC0Gy NVDqigwscndadOX8HXImXT EuoY15lILhDSpeZr2go2J7 m905RGHtLNEwxR83Xo1vfO ogMTBwdCBU uL0gzxgwh4tjwsxjGiJqIT JtXKg3FSg5KDDfrVwnAhXo NSU7KjD6DZW2jCAxnX2xfR giqhtdnC5c Oyc+Z10mjS5pTON9HCN8xp oeFYIrzbApID89WE84Z4Zn PjwvdGFibGU+PGRpdiBzdH scRV6bKrUy y4ajq5UmQZatN9RwATXrTS hoAiu5NJJsPUW3fXT1nY1y TQRbUZugk9D5yVX7D8Gyex Rxyl5ls0gs KJAtMTksI29mgVWdv8T0JT DbxWT3IKHatMejVuPptJ03 Oyc+HIYgoOgak7HpUhhld5 edg9gfsNe6 KsDdQVBhndRblSceLOH1c3 NcPi89M98eXBcsPCTxEWSy QIFzJYYdtHcckb8raK3gEm 8+PGNvbCB3 iZK2gQ0pJJKtIrM3NWzmN7 88KaXwlDPoGhgyd8ydc3pr sPv8LdOzUKXhnmCaaKwyER Q8z2PbNb76 H92hQDntPNWhKPKlPPKsAY ZkmFdtzr9yvX5lKg4+PC9j a7tpso34bP72hNA+PHRkIH C1zGxuPPfc GXAseI1hSGanRbD3OTBzSp JsbG01aTXcAQnqJf3nyKph oPldYE6dJOIdhfzfj049Ea Tvn4gyIKEn mRBiPDgbQQR1L73il3U1GF ZtBKSaCVX6iQG1kT9acTxh bjogbGVmdDsgdmVydGljYW qxPAmmM252 IHRvcDsnPlBhdGllbnQgTm BcKTt8A2ZuExh5FRCboTpd MU2pjRXvNZjfXq3koFhsnC vvGO4qIHQs vhump405IjJeh0tdPUDwmW ApRGbeVFV9Z47oh1I4FNHo INBdHNB7nNL2vV0vbMwelv ogbGVmdDsg jjKoyXeyUEafPKtiD279IK RvcDsnPkJpcnRoIERhdGU6 VT71JZ35fKBws4F6eWQ9I9 BhZGRpbmct mnzwrHZ7IEUbTKYngL05Fv 7rxEhfVi9oFSSgCPG4ISEx sBIrM7VaxD7yMkSyKJSmSK RiF5NbwZZl HZtgO604YIhaGjN8ILMfwp JmL8QlAXMvlZvlIaE3b1T4 Rg7GV9Y2KI57NP07hVStg2 C7nXY9Y6Cu GWLvkbjzymyuuKK7CCKvIC LliI85Ch1jaKxzIh7lJRWn UJM1IBPogZLxW4HfiU9lOd AjMDAwMDAw G1XtfDZtEQfwH394HPaeRh D8BFYmhmOeB4SnNIShsAhy VhY3f0O5Lk3ALXy6KD87LZ 42iQPex2W9 lNP9O6IvXRPhqqjpbylycH F6CNZzHUFtnG60Ay8xqKfl Yr3cPUXrHYX0CECfvXErE4 EntU7iUkLa IEAfVQMlO5RubOMnIDrdU1 70XXqhOqN2XZZbqsYhO2Eh RJTswZcuYpY3p9G7Oi2ETE AhRJ71EWX4 yWN2DK28OO13K7ZnBtieeE FibGU+PHRhYmxlIHdpZHRo AVphOIKaHqQszFkkJX3cLh 9yZGVyLWNv oVlbjWMpBeVok8jsONBpEX owPZ8weWthK4BydTR7KAYd y8d3Xf02K13fK0GypGM+PG XkcXH3dQR4 mK8kQrVmYtG8IYdkM166Fz ZtdSAwPdlej7adk1ftbYj6 FuQ6LCHlaoTovYxsGSL3i4 XjOl82Y99i IHdpZHRoPSIxNSUiIHZhbG plnf3vnX1tQk2+PGNvbCB3 eCA5cT3yOzEiUmL1MLueK9 49InRvcCIv Kmnbq8qrb6aujYh6PiDoAV TkvxUleSjrAKK5c0RmOk64 V9AweXckm7FvHfa9gw52qG Muu5N5mKX8 X3VjFPZupganaKRcfRwcMZ 8qFWBoezncUYUtwP9aIFAk X0i0PhQhFzS3QQzxH9Iqwq P5BXXxkPVl LOxyIRW3D70fi2Y9SWTqYN FkDRT2kQE4kS2uyYinewza bGVmdDsgdmVydGljYWwtYW jqD924CNMl aRyvWVAqrB2kLZSnyBEzeJ bfPU4aYSUsbpetMkXGQeqL CuSmUSJREf4TUD72YM16iT Bky8B8oAH6 G6LwVHRyrjlldeyszDC2TS EeKCPbuC76wJFkKBiqQk3n i0Z9j310WGWoHISyjX05Bi 9udDogMTBw fIPOfV1zfamqn4xmvrvwLg HeLBTvNKg5CNz3TEOplVla MsOxMZR6DhO5QBX6cTPctN 1hbGlnbjog dK7eOnd+HEzjXNBjOJo4PT wvdGQ+NPSxJKZ5aDzhNZvd IEThxY9fXJKvV0k9FbGhWg V7CDfqE6Pu HBNyjcxyAt83bU1jGkAsHb T5GKhyU0WoikF4ABKfuIUs OBrhVQJ9Z26sw3S7QNMlQR KxUYV9yJW8 rH3wiIzffsyznJQgkBkjrr UyyPdqCTbgYIwlZ595QLOx wVpgMmpxHEwbKQOmDK21GC 02pRRcf4D7 dLZ5O5PwOIJyvfdiisiooG M5MDYtLSMvuU14iFNmPEcr Eh0ca3J0z814GCYaASCeoE 70Xc1ejAfh JEAvkUQYmJ7omxtuf5pqns owPvDiKUQgKHk8ORy0IVSj lSbcKjPjSYP4PfZ8HSF5xL DznH5jzXzw vkaevU6qQub+TWFsZTwvdG Q+KTNcLJJ3hGlgOYogVBYb pU7oGOOiC1z4ZfZwOhV4HC omC8RcNTMx ibepNe91vO8sRiVgEfA7QP reA5IsiaJ0URDuvVHlYUuv NEP7V97xx4Y4OJYyOSIfRE T9lFM2eJ7l bGlnbjogbGVmdDsgdmVydG gyEPqwEPtfY771LRZxwIga Ly74bWCfvTmmrhE8D2MyHt wvdHI+PC90 BCPmFB46mGRhlZOfk5smnV h7HoCuJPJtEGV8kGmcULlc t9RyGRFqW35pbBDqi3E5NO NvbGxhcHNl VhLabJD0uB2aIZxnhayok8 pduzipTfeqp0ljmz42lU11 F11oEMeyMZDmRSSlVAXxEE OndMnuoo3r yY1iWk6+QESvcNS7dQC1pV 5uWkCdCsM0SGrbS879HgBy yISiTspfz8hvm8istJw9Eo IwJSIgdmFs eLydFVI9b1HrMw21S98xWD dpZHRoPSIyMCUiIHZhbGln sl6qdW9rHj7+NC4do3azlt 67nX31kZF+ SGUpVEQ2pMfmAJotLEAdwO 0uQCxwIhB3SQOeQaHypU43 rVQwRQyoKc7ehFophYjgGN 4wNTBpbjtm l807RlJvt1zgXQXlmBBuLY jsSEJ1U53fl4G4PAYjAZCp WRI5hOJ3hA9eaJfpzaokgP VmdDsgdmVy aRmaMYyiCLczH427KRUeqI xbUwJczTPjZ1arfwQVQB9t OjwvdGQ+QXZhJVD3pTifKO pxOXPwqC4y UCKcM9l7CeJoMwQ4ILouC9 SbiaH1YYQglZHdXWApiZJJ wP9iiyvep9mzvybyJcNyGL KeTZu4ROj1 PCIukIxoKjZjQZR0HiQ7MU J2cDPtmI8glNvdxpiqgO0n Oyc+RklOOjwvdGQ+PHRkIH S1tCnlUJfr OEWxxQ7qYOZbN4u0DwNyLs C1JKezP3BqidX6RRAjwBWy MXXimZBJvQ4ijjotr5hdag ogIzAwMDAw XWx2IPv3RUOrvHvjQuYoWI G1LfR3DNU2rAFcrF1mdAgk brxrhN9tKay+TVJOOjwvdG Q+PHRkIHN0 pPsqKGlaQAQvlV4zBMUrF6 w0CyAmBpZ4RAahN8EysmP8 VHKlhFKzDBCrzYOFiH9kbw obn1uuipwh LrIfZUSgORe8DCn0PSItmV fwFfQkRXL1ZwT2JCE8jZUp yC4wgDhplaqjuJ1sDvw+UG P5PII0UG61 FV43P7JhJjiwqOYqwMZ+PH RhYmxlIHdpZHRoPScxMDAl ZjKdlYfzFN9bHt7pRBTiWC NvbGxhcHNl OiBj (more content not included)... Normal [facility] Consent for Procedure/Surger yon 04-06-2021 Consent for Procedure/Surgery [id number]. 00CD:127 [facility] IntraOperative Documentson 0 04-06-2021 IntraOperative Documents [id number]#1. 00CD:127 [facility] Consent for Treatmenton 03-17 Consent for Treatment [id number]#1.0 0CD:127 [facility] Main OR Intraoperative Recor don 04-02-2021 Main OR Intraoperative Record IntraOp Document Type FTURO Summary Primary Physician: Cintia Alves Jr., MD Finalized Date/Time: 04/02/21 08:45:09 Pt. Name: KYLIE RUEDA/Sex: 1950 Male Med Rec #: [id number] Physician: Cintia Alves Jr., MD Financial #: [id number] Pt. Type: O Room/Bed: / Admit/Disch: 04/02/21 [...] T[place]well CST Role Performed Surgeon - Primary Line Director - Primary Scrub - Primary Time In [...] 2 - Clean-Contaminated Last Modified By: MIKE Liar RN, Racquel 04/02/21 08:45:01 General Case Data [...] urethral stricture Last Modified By: Pankaj REED, BREANNOR, Racquel 04/02/21 08:44:47 Post-Care Text: The patient [...] Equipment, Medication Time Out Shawn Allen MD, iCntia Hernandez, Verified (If Participants Pankaj REED, CNOR, [...] MIKE Lira RN, Ruthann 04/02/21 08:45 Normal [facility] Main OR Preoperative Recordo n 04-02-2021 Main OR Preoperative Record Holding Area Document Type FTURO Summary Primary Physician: Cintia Alves Jr., MD Finalized Date/Time: 04/02/21 08:26:32 Pt. Name: KYLIE RUEDA/Sex: 1950 Male Med Rec #: [id number] Physician: Cintia Alves Jr., MD Financial #: [id number] Pt. Type: O Room/Bed: / Admit/Disch: 04/02/21 [...] MIKE Lira RN, Ruthann 04/02/21 08:26 Normal [facility] Operative Reporton 2 Operative Report Patient: KYLIE [...] Directed, # 2 tab(s), Refills(s) 0, Pharmacy: [facility], 181, cm, 03/26/21 9:56:00 EST, Height/Length Dosing, 115, kg, 02/24/21 11:35:00 EST, Weight Dosing tamsulosin 0.4 mg Cap: 0.4 mg = 1 cap(s), Oral, Daily, # 30 cap(s), Refills(s) 1, Pharmacy: [facility], 181, cm, 03/26/21 9:56:00 EST, Height/Length Dosing, [...] BPH with urinary obstruction / SNOMED CT 4288723556 / Confirmed Phimosis / SNOMED CT 2306537302 / Confirmed Urge incontinence / SNOMED CT 021597682 / Confirmed, Active Problems (3) BPH with [...] may stop it at any time. Normal [facility] Comment on above: Result Comment: Elec tronically [...] urine. The Urethra was dilated to: 24 [place] w/ sounds. Devices Implanted: None. Removal: Cystoscope is removed, The patient tolerated it well. Postoperative Information Discharge: Patient is discharged home with antibiotic coverage, Follow up arranged, This patient was started on a trial of tamsulosin 0.4 mg daily. A new prescription was sent to the pharmacy. We will plan follow-up with PVR in the office in 1 month.. Normal [facility] Comment on above: Result Comment: Elec tronically Signed By: Cintia Alves Jr., MD\.br\Date and Time Signed: 04/02/21 08:52 EST [employer] 02-24-2021 Forms [id number] 0CD:127 Normal [facility] Patient Educationon 02-24-19 Patient Education BMI for [...] height. This can be done either in [place]ian ([place] or metric measurements. Note that charts are available to help you find your BMI quickly and easily without having to do these calculations yourself. To calculate your BMI in [place]ian ([place] measurements, your health care provider will: [...] problems. ? BMI can be measured using Panamanian measurements or metric measurements. ? To interpret [...] 10/12/2004 Document Revised: 01/13/2018 Document Reviewed: 12/14/2017 [employer] Patient Education ? 2020 [employer] Nutrition BMI for Adults Body mass index [...] height. This can be done either in [place]ian ([place] or metric measurements. Note that charts are available to help you find your BMI quickly and easily without having to do these calculations yourself. To calculate your BMI in [place]ian ([place] measurements, your health care provider will: [...] inches sq (more content not included)... Normal [facility] Urology Office/Clinic Noteon 02-24-2021 Urology Office/Clinic [...] day(s), # 2 tab(s), Refills(s) 0, Pharmacy: [address], 02/24 (more content not included)... Normal [facility] Comment on above: Result Comment: Elec tronically Signed By: Shawn Allen MD, Cintia Hernandez\.br\Date and Time Signed: 02/24/21 12:54 EST\.br\Electronically Co-Signed By: Vanessa Herring MA\.br\Date and Time Co-Signed: 02/24/21 12:11 EST Basic Metabolic Panel w/ Ref gee to MGon 12-04-2019 Anion gap [Moles/Vol] 7 mmol/L Low 9 - 17 mmol/L [place] Bun/Cre Ratio 12 [place] Calcium [Mass/Vol] 8.8 mg/dL 8.6 - 10. 4 mg/dL [place] Chloride [Moles/Vol] 100 mmol/L 98 - 10 7 mmol/L [place] CO2 [Moles/Vol] 28 mmol/L 20 - 31 mmol/L [place] Creatinine [Mass/Vol] 0.68 mg/dL Low 0.7 - 1.2 mg/dL [place] GFR >60 >60 mL/min [place] GFR Non- >60 >60 mL/min [place] GFR/1.73 sq M predicted among non-blacks MDRD (S/P/Bld) [Vol rate/Area] NOT REPORTED [place] GFR/1.73 sq M predicted among non-blacks MDRD (S/P/Bld) [Vol rate/Area] [place] Comment on above: Average GFR for 70 o r more years old: 75 mL/min/1.73sq m Chronic Kidney Disease: <60 mL/min/1.73sq m Kidney failure: <15 mL/min/1.73sq m eGFR calculated using average adult body mass. Additional eGFR calculator available at: http://www.[employer]/multiple_crcl_2011.htm Glucose [Mass/Vol] 120 mg/dL High 70 - 99 mg/dL [place], [place] Interpretation and review of laboratory results Abnormal [place] Potassium [Moles/Vol] 4.0 mmol/L 3.7 - 5.3 mmol/L [place] Sodium [Moles/Vol] 135 mmol/L 135 - 144 mmol/L [place] Urea nitrogen [Mass/Vol] 8 mg/dL 8 - 23 mg/dL [place] CBCon 12-04-2019 Erythrocyte distribution width (RBC) [Ratio] 12.1 % 11.8 - 14.4 % [place] Hematocrit (Bld) [Volume fraction] 33.1 % Low 40.7 - 50.3 % [place] Hemoglobin (Bld) [Mass/Vol] 10.9 g/dL Low 13 - 17 g/dL [place] Interpretation and review of laboratory results Abnormal [place] MCH (RBC) [Entitic mass] 29.5 pg 25.2 - 33.5 pg [place] MCHC (RBC) [Mass/Vol] 32.9 g/dL 28.4 - 34.8 g/dL [place] MCV (RBC) [Entitic vol] 89.5 fL 82.6 - 102.9 fL [place] Platelet mean volume (Bld) [Entitic vol] 8.7 fL 8.1 - 13.5 fL [place] Platelets (Bld) [#/Vol] 253 10*3/uL [place] RBC (Bld) [#/Vol] 3.70 10*6/uL Low 4.21 - 5.7 7 m/uL [place] WBC (Bld) [#/Vol] 7.9 10*3/uL [place] WBC (Bld) [#/Vol] 0.0 10*3/uL 0.0 per 10 0 WBC [place] Protime-INRon 12-04-2019 INR Coag (PPP) [Relative time] 1.1 {INR} [place] Comment on above: Non-therapeutic Range: INR = 0.9-1.2 Therapeutic Range: Moderate Anticoagulant Intensity: INR = 2.0-3.0 High Anticoagulant Intensity: INR = 2.5-3.5 PT Coag (PPP) [Time] 13.8 s [place] FLUORO FOR SURGICAL PROCEDUR ESon 12-03-2019 Radiology exam is complete. No Radiologist dictation. Please follow up with ordering provider. [place] XR LUMBAR SPINE (2-3 VIEWS)o n 12-03-2019 Yamil, Mhpn Incoming Radiant Results From [facility] - 12/03/2019 8:59 AM EDT EXAMINATION: SPOT [...] See separate procedure report for [facility] information. [facility]oscopic spot images as above. See separate procedure report for more information. [facility] EXAMINATION: SPOT FLUOROSCOPIC IMAGES 12/03/2019 8:39 [...] demonstrates pain pump catheter projecting over spine.. [facility] Covid-19 Ambulatoryon 2019 SARS-CoV-2, [place] Not Detected Not Detected [facility] Comment on above: (NOTE) This nucleic acid amplification test was developed and its performance characteristics determined by [employer]. Nucleic acid amplification tests include PCR and [...] Performed At: [facility] [address] [place], [place] [id number] Carlos Young MD Ph:[phone] MRSA DNA Probe, Nasalon MRSA, DNA, Nasal NEGATIVE: MRSA DNA n ot detected by nucleic acid amplification. NEGATIVE: MRSA DNA not detected by nucleic acid amplificati [place] Comment on above: Results should be used as an adjunct to nosocomial control efforts to identify patients needing enhanced precautions. The test is not intended to identify patients with staphylococcal infections. Results should not be used to guide or monitor treatment for MRSA infections. Specimen Description .NASAL SWAB [place] APTTon 11-19-2019 aPTT Coag (Bld) [Time] 26.3 s [place] Comment on above: IV Heparin Therapy Range: 62.0-94.0 Hemoglobin A1Con 11-19-2019 Glucose [Mass/Vol] 114 mg/dL [place] Comment on above: The ADA and AACC rec ommend providing the estimated average glucose result to permit better patient understanding of their HBA1c result. HbA1c (Bld) [Mass fraction] 5.6 % 4 - 6 % [place] PTon 11-19-2019 INR Coag (PPP) [Relative time] 1.0 {INR} [place] Comment on above: Non-therapeutic Range: INR = 0.9-1.2 Therapeutic Range: Moderate Anticoagulant Intensity: INR = 2.0-3.0 High Anticoagulant Intensity: INR = 2.5-3.5 PT Coag (PPP) [Time] 12.7 s [place] URINALYSISon 11-19-2019 Bilirubin Urine Negative NEGATIVE [place] Color, UA YELLOW YELLOW [place] Glucose, Ur Negative NEGATIVE [place] Ketones Ql (U) Negative NEGATIVE [place] Leukocyte esterase Test strip Ql (U) Negative NEGATIVE [place] Nitrite, Urine Negative NEGATIVE [place] pH, UA 6.5 [place] Protein (U) [Mass/Vol] Negative NEGATIVE [place] Specific [place], UA 1.010 [place] Turbidity UA CLEAR CLEAR [place] Urinalysis Comments Microscopic exam not performed based on chemical results unless requested in original order. [place] Urine Hgb Negative NEGATIVE [place] Urobilinogen, Urine Normal Normal [place] WRIST RIGHT 3 VWSon 03-09-19 19 WRIST RIGHT 3 VWS [facility] Department of Radiology [address] [place] [address] ======== Patient Name: KYLIE RUEDA : 1950 Sex: M Age: Race: White Pt. Location: Patient Status: O Ordered Date: 03/09/2018 12:55:00 PM Completed Date: 03/09/2018 12:54 PM Requesting Provider: CARLOS EVANS Attending Provider: CARLOS EVANS Report Copy To: JENNY CAST Signs & Symptoms: S52.541D Alves's fracture of r radius, subs for cordelia case I10 History: [place] Comments: , , , Ordering Provider - CARLOS WALTERS-C , Exam: WRIST RIGHT 3 [facility] ======== WRIST RIGHT 3 S 03/09/2018 12:54 PM EST SIGNS AND SYMPTOMS: S52.541D Alves's fracture of r radius, subs for clos fx w jaysonn heal I10 TECHNOLOGIST COMMENTS: right wrist surgery x 3 months ago follow up QUESTION FOR THE RADIOLOGIST: , , , Ordering Provider - CARLOS WALTERS-C , PROTOCOL: AP,Lateral and Oblique views were obtained. COMPARISON: January 26, 2018 FINDINGS: Soft tissues: No change Bones: No change Joints: No change IMPRESSION: Healing or healed distal radial fracture with volar plate in good alignment, superimposed upon osteoporotic skeleton with minor degenerative change similar to prior study Electronically signed by:Savannah Mark. Transcribed by: [email or web address], User Resident: Electronically Signed by: SAVANNAH MARK @ 03/09/2018 02:08 PM Normal [facility] Comment on above: Order Comment: , , = ========= , Ordering Provider - CARLOS EVANS PA-C , WRIST RIGHT 2 VWSon 01-27-20 18 WRIST RIGHT 2 S [facility] Department of Radiology [address] [place] [id number] ======== Patient Name: KYLIE RUEDA : [...] 01/26/2018 1:02 PM EST SIGNS AND SYMPTOMS: S52.541A Alves's [...] fracture Electronically signed by:Savannah Mark. Transcribed by: [email or web address], User Resident: Electronically Signed by: SAVANNAH MARK @ 01/26/2018 01:07 PM Normal [facility] Comment on above: Order Comment: , Yany ws (X-RAY, WRIST): PA, Lateral , Views (X-RAY, WRIST): PA, Lateral , , , Ordering Provider - CARLOS EVANS PA-C , WRIST RIGHT 3 [place] 12-30-19 18 WRIST RIGHT 3 [facility] Department of Radiology [address] [place] [id number] ======== Patient Name: KYLIE RUEDA : 1950 Sex: M Age: Race: White Pt. Location: Patient Status: O Ordered Date: 12/29/2017 12:55:00 PM Completed Date: 12/29/2017 12:53 PM Requesting Provider: CARLOS EVANS Attending Provider: CARLOS EVANS Report Copy To: JENNY CAST Signs & Symptoms: S52.541A Alves's fracture of right radius, init for clos fx I10 History: [place] Comments: , Views (X-RAY, WRIST): PA, Lateral , Views (X-RAY, WRIST): PA, Lateral , , , Ordering Alisha - CARLOS EVANS PA-C , Exam: WRIST RIGHT 3 [facility] ======== WRIST RIGHT 3 [facility] 12/29/2017 12:53 PM EST SIGNS AND SYMPTOMS: S52.541A Laves's fracture of right radius, init for clos [...] alignment Electronically signed by:Savannah Mark. Transcribed by: [email or web address], User Resident: Electronically Signed by: SAVANNAH MARK @ 12/29/2017 02:02 PM Normal [facility] Comment on above: Order Comment: , Yany ws (X-RAY, WRIST): PA, Lateral , Views (X-RAY, WRIST): PA, Lateral , , , Ordering Provider - CARLOS CRISTINA PA-C , WRIST RIGHT 3 [place] 12-02-19 18 WRIST RIGHT 3 [facility] Department of Radiology [address] [place] [phone] ======== Patient Name: KYLIE RUEDA : 1950 Sex: M Age: Race: White Pt. Location: Patient Status: O Ordered Date: 12/01/2017 10:20:00 AM Completed Date: 12/01/2017 10:20 AM Requesting Provider: HEMA VILCHIS Attending Provider: HEMA VILCHIS Report Copy To: JENNY CAST Signs & Symptoms: S50.577G Oth intartic fracture of lower end of [...] alignment Electronically signed by:Savannah Mark. Transcribed by: [email or web address], User Resident: Electronically Signed by: SAVANNAH MARK @ 12/01/2017 04:09 PM Normal [facility] Comment on above: Order Comment: , Vie ws (X-RAY, WRIST): Radiologic Protocol , Weight Bearing?: N , With or Without Brace/Cast/Collar: With , Views (X-RAY, WRIST): Radiologic Protocol , Weight Bearing?: N , With or Without Brace/Cast/Collar: With , , , Ordering Provider - HEMA VILCHIS PA-C , Operative Reporton 8 Operative Report MR#: [id number] [facility] Pt. Name: Kylie Rueda Room #: [...] tendon. Blunt dissection was carried out using Una scissors. The tendon sheath was incised longitudinally. [...] any fracture hematoma as well as a [place]. Irrigation was then used. The fracture was [...] days. He was provided a prescription for [place] to be taken for pain. He may [...] A/Mian Colón MD Date Trans: 11/18/2017 09:15 P/shane [id number] cc: Jenny Cast M.D. [address] [facility] [address] Normal [facility] POC GLUCOSE LABon 11-18-2017 Glucose mass conc 118 mg/dL High 70-100 [facility] Comment on above: Performed By: #### [id number] #### [address] WRIST RIGHT 2 VWSon 11-19-19 18 WRIST RIGHT 2 VWS [facility] Department of Radiology [address] [place] [id number] ======== Patient Name: KYLIE RUEDA : 1950 Sex: M Age: Race: White Pt. Location: [facility] Patient Status: O Ordered Date: 11/18/2017 10:15:00 [...] Documentation Electronically signed by:Savannah Mark. Transcribed by: [email or web address], User Resident: Electronically Signed by: SAVANNAH MARK @ 11/18/2017 12:08 PM Normal [facility] Comment on above: Order Comment: ORIF RIGHT DISTAL RADIUS APTTon 11-15-2017 aPTT Coag time (Bld) 29.2 s Normal 25.0-35.0 [facility] Comment on above: Order Comment: patie [...] THIS PURPOSE. Performed By: #### 5 [id number], [id number] #### [facility] [address] BASIC METABOLIC PANELon 10-0 Calcium mass conc 9.4 mg/dL Normal 8.6-10.3 [facility] Comment on above: Performed By: #### 0 [id number] #### [facility] [address] [place] [address], [place] Chloride molar conc 99 mmol/L Normal 98-107 [facility] Comment on above: Performed By: #### 0 0071 #### [facility] [address] [place] [address], [place] CO2 molar conc 32 mmol/L High 21-31 [facility] Comment on above: Performed By: #### 0 0071 #### [facility] [address] [place] [address], [place] Creatinine mass conc 0.88 mg/dL Normal 0.70-1.30 [facility] Comment on above: Performed By: #### 0 0071 #### [facility] [address] [place] [address], [place] GFR/1.73 sq M predicted among blacks MDRD vol rate/area (S/P/Bld) mL/min/{1.73_m2} Normal >60 [facility] Comment on above: Performed By: #### 0 0071 #### [facility] [address] [place] [address], [place] GFR/1.73 sq M predicted among non-blacks MDRD vol rate/area (S/P/Bld) mL/min/{1.73_m2} Normal >60 [facility] Comment on above: Performed By: #### 0 0071 #### [facility] [address] [place] [address], [place] Glucose mass conc 109 mg/dL High 70-100 [facility] Comment on above: Performed By: #### 0 0071 #### [facility] [address] [place] [address], [place] Potassium molar conc 4.7 mmol/L Normal 3.5-5.1 [facility] Comment on above: Performed By: #### 0 0071 #### [facility] [address] Sodium molar conc 136 mmol/L Normal 136-145 [facility] Comment on above: Performed By: #### 0 0071 #### [facility] [address] Urea nitrogen mass conc 14 mg/dL Normal 7-25 [facility] Comment on above: Performed By: #### 0 0071 #### [facility] [address] CBC W/DIFFon 11-15-2017 ABS BASOPHILS 0.1 10*3/uL Normal 0.0-0.2 [facility] Comment on above: Performed By: #### 5 0103 #### [facility] [address] ABS IMM GRANS 0.0 10*3/uL Normal 0.0-0.2 [facility] Comment on above: Performed By: #### 5 0103 #### [facility] [address] ABS NEUTROPHILS 4.6 10*3/uL Normal 1.6-7.6 [facility] Comment on above: Performed By: #### 5 0103 #### [facility] 3000 [facility]. [address] Basophils #/vol (Bld) 0.7 % Normal 0.0-1.0 [facility] Comment on above: Performed By: #### 5 0103 #### [facility] [address] Eosinophils #/vol (Bld) 0.4 10*3/uL Normal 0.0-0.5 [facility] Comment on above: Performed By: #### 5 0103 #### [facility] 3000 [facility]. [address] Eosinophils/100 WBC (Bld) 4.1 % Normal 0.0-6.0 [facility] Comment on above: Performed By: #### 5 0103 #### [facility] 3000 [facility]. [address] Erythrocyte distribution width Ratio (RBC) 12.3 % Normal 11.5-15.0 [facility] Comment on above: Performed By: #### 5 0103 #### [facility] 3000 [facility]. [address] Hematocrit Volume Fraction (Bld) 34.9 % Low 39.0-50.0 [facility] Comment on above: Performed By: #### 5 0103 #### [facility] 3000 [facility]. [address] Hemoglobin mass conc (Bld) 11.7 g/dL Low 13.0-17.0 [facility] Comment on above: Performed By: #### 5 0103 #### [facility] 3000 [facility]. [address] IMMATURE GRANS 0.2 % Normal 0.0-1.0 [facility] Comment on above: Performed By: #### 5 3 #### [facility] [address] Lymphocytes #/vol (Bld) 2.5 10*3/uL Normal 1.2-4.0 [facility] Comment on above: Performed By: #### 5 3 #### [facility] [address] [place] [address], [facility] Lymphocytes/100 WBC (Bld) 29.0 % Normal 20.0-45.0 [facility] Comment on above: Performed By: #### 5 3 #### [facility] 3000 [place] [address], [facility] MCH Entitic mass (RBC) 29.3 pg Normal 27.0-33.0 [facility] Comment on above: Performed By: #### 5 102 #### [facility] [address] MCHC mass conc (RBC) 33.5 g/dL Normal 32.0-35.0 [facility] Comment on above: Performed By: #### 102 #### [facility] [address] MCV Entitic volume (RBC) 87.3 fL Normal 82.0-98.0 [facility] Comment on above: Performed By: #### 5 3 #### [facility] [address] Monocytes #/vol (Bld) 1.0 10*3/uL Normal 0.1-1.0 Th e [facility] Comment on above: Performed By: #### 5 102 #### [facility] [address] MONOS 12.0 % Normal 5.0-12.0 [facility] Comment on above: Performed By: #### 5 102 #### [facility] [address] Neutrophils/100 WBC (Bld) 54.0 % Normal 40.0-72.0 [facility] Comment on above: Performed By: #### 3 #### [facility] [address] Nucleated RBC/100 WBC Ratio (Bld) 0 % Normal 0-0 [facility] Comment on above: Performed By: #### 5 102 #### [facility] [address] PLAT CNT 288 10*3/uL Normal 150-400 [facility] Comment on above: Performed By: #### 5 102 #### [facility] [address] RBC #/vol (Bld) 4.00 10*6/uL Low 4.20-5.70 [facility] Comment on above: Performed By: #### 5 0103 #### [facility] [address] [place] [address], [facility] WBC #/vol (Bld) 8.53 10*3/uL Normal 4.00-10.60 [facility] Comment on above: Performed By: #### 5 0103 #### [facility] 3000 [facility] [address] PROTHROMBIN TIMEon 8 INR Coag RelTime (PPP) 1.01 {INR} Normal 0.91-1.16 [facility] Comment on above: Order Comment: Patie [...] CHEST 1995;[id number]. Performed By: #### 5 6101, [id number] #### [facility] [address] Prothrombin time (PT) Coag time (PPP) 13.3 s Normal 12.3-14.8 [facility] Comment on above: Order Comment: Patie [...] OF SAMPLING. Performed By: #### 5 6101, 20563 #### [facility] [address] PAIN MANAGEMENT DRUG PANEL 2 [id number] 05-04-2017 6-ACETYLMORPHINE Not Detected Normal [facility] Comment on above: Order Comment: Please call [facility] at [phone] for Senior Asic Engineer consultation or assistance with interpretation if needed. 7-AMINOCLONAZEPAM Not Detected Normal [facility] Comment on above: Order Comment: Please call [facility] at [phone] for Senior Asic Engineer consultation or assistance with interpretation if needed. ALPRAZOLAM Not Detected Normal [facility] Comment on above: Order Comment: Please call [facility] at [phone] for Senior Asic Engineer consultation or assistance with interpretation if needed. AMPHETAMINE Not Detected Normal [facility] Comment on above: Order Comment: Please call [facility] at [phone] for Senior Asic Engineer consultation or assistance with interpretation if needed. [id number] Not Detected Normal [facility] Comment on above: Order Comment: Please call [facility] at [phone] for Senior Asic Engineer consultation or assistance with interpretation if needed. BARITURATES Not Detected Normal [facility] Comment on above: Order Comment: Please call [facility] at [phone] for Senior Asic Engineer consultation or assistance with interpretation if needed. Benzoylecgonine Ql (U) Not Detected Normal [facility] Comment on above: Order Comment: Please call [facility] at [phone] for Senior Asic Engineer consultation or assistance with interpretation if needed. BUPRENORPHINE Not Detected Normal [facility] Comment on above: Order Comment: Please call [facility] at [phone] for Senior Asic Engineer consultation or assistance with interpretation if needed. CLONAZEPAM Not Detected Normal [facility] Comment on above: Order Comment: Please call [facility] at [phone] for Senior Asic Engineer consultation or assistance with interpretation if needed. CODEINE URINE Not Detected Normal [facility] Comment on above: Order Comment: Please call [facility] at [phone] for Senior Asic Engineer consultation or assistance with interpretation if needed. CREATININE URINE 102.9 mg/dL Normal 20.0-400.0 [facility] Comment on above: Order Comment: Please call [facility] at [phone] for Senior Asic Engineer consultation or assistance with interpretation if needed. DIAZEPAM Not Detected Normal [facility] Comment on above: Order Comment: Please call [facility] at [phone] for Senior Asic Engineer consultation or assistance with interpretation if needed. EER PAIN MGT DRUG PANEL, HIGH RES See Note Normal [facility] Comment on above: Order Comment: Please call [facility] at [phone] for Senior Asic Engineer consultation or assistance with interpretation if needed. Result Comment: Acce ss Appsee Enhanced Report using either link below: -Direct access: [email or web address] -Enter Username, Password: [email or web address] Username: [email or web address] Password: [email or web address] Performed by [facility], [address] [place] [id number] [email or web address], Vinayak Marin MD - Lab. Director ETHYL GLUCURONIDE Not Detected Normal [facility] Comment on above: Order Comment: Please call [facility] at [phone] for Senior Asic Engineer consultation or assistance with interpretation if needed. FENTANYL Not Detected Normal [facility] Comment on above: Order Comment: Please call [facility] at [phone] for Senior Asic Engineer consultation or assistance with interpretation if needed. HYDROCODONE Not Detected Normal [facility] Comment on above: Order Comment: Please call [facility] at [phone] for Senior Asic Engineer consultation or assistance with interpretation if needed. HYDROMORPHONE Present Normal [facility] Comment on above: Order Comment: Please call [facility] at [phone] for Senior Asic Engineer consultation or assistance with interpretation if needed. LORAZEPAM Not Detected Normal [facility] Comment on above: Order Comment: Please call [facility] at [phone] for Senior Asic Engineer consultation or assistance with interpretation if needed. MARIJUANA METABOLITE Not Detected Normal Th e [facility] Comment on above: Order Comment: Please call [facility] at [phone] for Senior Asic Engineer consultation or assistance with interpretation if needed. MDA Not Detected Normal [facility] Comment on above: Order Comment: Please call [facility] at [phone] for Senior Asic Engineer consultation or assistance with interpretation if needed. MDEA- SHEEBA Not Detected Normal [facility] Comment on above: Order Comment: Please call [facility] at [phone] for Senior Asic Engineer consultation or assistance with interpretation if needed. MDMA- ECSTASY Not Detected Normal [facility] Comment on above: Order Comment: Please call [facility] at [phone] for Senior Asic Engineer consultation or assistance with interpretation if needed. MEPERIDINE Not Detected Normal [facility] Comment on above: Order Comment: Please call [facility] at [phone] for Senior Asic Engineer consultation or assistance with interpretation if needed. Methadone Ql (U) Not Detected Normal [facility] Comment on above: Order Comment: Please call [facility] at [phone] for Senior Asic Engineer consultation or assistance with interpretation if needed. METHAMPHETAMINE Not Detected Normal [facility] Comment on above: Order Comment: Please call [facility] at [phone] for Senior Asic Engineer consultation or assistance with interpretation if needed. METHYLPHENIDATE Not Detected Normal [facility] Comment on above: Order Comment: Please call [facility] at [phone] for Senior Asic Engineer consultation or assistance with interpretation if needed. MIDAZOLAM Not Detected Normal [facility] Comment on above: Order Comment: Please call [facility] at [phone] for Senior Asic Engineer consultation or assistance with interpretation if needed. MORPHINE Not Detected Normal [facility] Comment on above: Order Comment: Please call [facility] at [phone] for Senior Asic Engineer consultation or assistance with interpretation if needed. NORBUPRENORPHINE Not Detected Normal [facility] Comment on above: Order Comment: Please call [facility] at [phone] for Senior Asic Engineer consultation or assistance with interpretation if needed. NORDIAZEPAM Present Normal [facility] Comment on above: Order Comment: Please call [facility] at [phone] for Senior Asic Engineer consultation or assistance with interpretation if needed. NORFENTANYL Not Detected Normal [facility] Comment on above: Order Comment: Please call [facility] at [phone] for Senior Asic Engineer consultation or assistance with interpretation if needed. NORHYDROCODONE Not Detected Normal [facility] Comment on above: Order Comment: Please call [facility] at [phone] for Senior Asic Engineer consultation or assistance with interpretation if needed. NOROXYCODONE Present Normal [facility] Comment on above: Order Comment: Please call [facility] at [phone] for Senior Asic Engineer consultation or assistance with interpretation if needed. NOROXYMORPHONE Not Detected Normal [facility] Comment on above: Order Comment: Please call [facility] at [phone] for Senior Asic Engineer consultation or assistance with interpretation if needed. OXAZEPAM Present Normal [facility] Comment on above: Order Comment: Please call [facility] at [phone] for Senior Asic Engineer consultation or assistance with interpretation if needed. OXYCODONE Present Normal [facility] Comment on above: Order Comment: Please call [facility] at [phone] for Senior Asic Engineer consultation or assistance with interpretation if needed. OXYMORPHONE Not Detected Normal [facility] Comment on above: Order Comment: Please call [facility] at [phone] for Senior Asic Engineer consultation or assistance with interpretation if needed. PAIN MANAGEMENT DRUG PANEL See Below Normal [facility] Comment on above: Order Comment: Please call [facility] at [phone] for Senior Asic Engineer consultation or assistance with interpretation if needed. [...] developed and its performance characteristics determined by [facility]. The U.S. Food and Drug Administration has not approved or cleared this test; however, FDA clearance or approval is not currently required for clinical use. The results are not intended to be used as the sole means for clinical diagnosis or patient management decisions. PCP Not Detected Normal [facility] Comment on above: Order Comment: Please call [facility] at [phone] for Senior Asic Engineer consultation or assistance with interpretation if needed. PHENTERMINE Not Detected Normal [facility] Comment on above: Order Comment: Please call [facility] at [phone] for Senior Asic Engineer consultation or assistance with interpretation if needed. Protein mass conc Not Detected Normal [facility] Comment on above: Order Comment: Please call [facility] at [phone] for Senior Asic Engineer consultation or assistance with interpretation if needed. Result Comment: The carisoprodol immunoassay has cross-reactivity to carisoprodol and meprobamate. TAPENTADOL Not Detected Normal [facility] Comment on above: Order Comment: Please call [facility] at [phone] for Senior Asic Engineer consultation or assistance with interpretation if needed. [id number] Not Detected Normal [facility] Comment on above: Order Comment: Please call [facility] at [phone] for Senior Asic Engineer consultation or assistance with interpretation if needed. TEMAZEPAM Present Normal [facility] Comment on above: Order Comment: Please call [facility] at [phone] for Senior Asic Engineer consultation or assistance with interpretation if needed. TRAMADOL Not Detected Normal [facility] Comment on above: Order Comment: Please call [facility] at [phone] for Senior Asic Engineer consultation or assistance with interpretation if needed. ZOLPIDEM Not Detected Normal [facility] Comment on above: Order Comment: Please call [facility] at [phone] for Senior Asic Engineer consultation or assistance with interpretation if needed. Vital Signs Date Time Vital Sign Value Performing Clinician Didi yepez 05-11-2023 11:13040 Body height 177.8 cm Tonja BAH Work Phone: [facility] 05-11-2023 11:13040 Body mass index (BMI) [Ratio] 36.92 kg/m2 Tonja Coburn APRN-MICHELLE Work Phone: [facility] 05-11-2023 11:13040 Body weight 116.71 kg Tonja BAH Work Phone: [facility] 05-11-2023 11:13-0400 Diastolic blood pressure 78 mm[Hg] Tonja Coburn APRN-MICHELLE Work Phone: [facility] 05-11-2023 11:13040 Heart rate 70 /min Tonja Coburn APRN-MICHELLE Work Phone: [facility] 05-11-2023 11:13-0400 Systolic blood pressure 128 mm[Hg] Tonja Coburn APRN-MICHELLE Work Phone: [facility] 05-03-2023 14:25-0400 Body mass index (BMI) [Ratio] 36.6 kg/m2 Rosa Maria Rome MD Work Phone: [facility] [employer] [facility] 05-03-2023 14:25-0400 Body weight 115.71 kg Rosa Maria infante MD Work Phone: [facility] [employer] 05-03-2023 14:25-0400 Diastolic blood pressure 79 mm[Hg] Rosa Maria Rome MD Work Phone: [facility] [employer] [facility] 05-03-2023 14:25-0400 Heart rate 79 /min Rosa Maria infante MD Work Phone: [facility] [employer] [facility] 05-03-2023 14:25-0400 Systolic blood pressure 132 mm[Hg] Rosa Maria Rome MD Work Phone: [facility] [employer] [facility] 04-15-2023 09:54-0500 Body height 177.8 cm Soumya Marie MD Work Phone: [facility] [employer] 04-15-2023 09:54-0500 Body mass index (BMI) [Ratio] 35.87 kg/m2 Soumya Marie MD Work Phone: [facility] [employer] [facility] 04-15-2023 09:54-0500 Body weight 113.4 kg Soumya Marie MD Work Phone: [facility] [employer] 04-15-2023 09:54-0500 Diastolic blood pressure 88 mm[Hg] Soumya Marie MD Work Phone: [facility] [employer] [facility] 04-15-2023 09:54-0500 Heart rate 73 /min Soumya Marie MD Work Phone: [facility] [employer] [facility] 04-15-2023 09:54-0500 SaO2% (BldA) [Mass fraction] 98 % Soumya Marie MD Work Phone: [facility] [employer] 04-15-2023 09:54-0500 Systolic blood pressure 148 mm[Hg] Soumya Marie MD Work Phone: [employer] 12-01-2021 14:28-0400 SaO2% (BldA) [Mass fraction] 89.9 % [facility] 06-09-2021 11:04-0400 Blood Pressure Location Cintia Alves Jr. [facility] 06-09-2021 11:04-0400 Diastolic blood pressure 76 mm[Hg] Cintia Alves Jr. [facility] 06-09-2021 11:04-0400 Heart rate 63 /min Cintia Alves Jr. [facility] 06-09-2021 11:04-0400 Respiratory rate 16 /min Cintia Alves Jr. [facility] 06-09-2021 11:04-0400 Systolic blood pressure 120 mm[Hg] Cintia Alves Jr. [facility] 05-12-2021 08:37-0400 Blood Pressure Location Cintia Alves Jr. [facility] 05-12-2021 08:37-0400 Body temperature 97.52 [degF] Cintia Alves Jr. [facility] 05-12-2021 08:37-0400 Diastolic blood pressure 73 mm[Hg] Cintia Alves Jr. [facility] 05-12-2021 08:37-0400 Heart rate 79 /min Cintia Alves Jr. [facility] 05-12-2021 08:37-0400 Mean blood pressure 87 mm[Hg] Cintia Alves Jr. [facility] 05-12-2021 08:37-0400 Systolic blood pressure 115 mm[Hg] Cintia Alves Jr. [facility] 05-12-2021 08:36-0400 Blood Pressure Location Cintia Alves Jr. [facility] 05-12-2021 08:36-0400 Diastolic blood pressure 74 mm[Hg] Cintia Alves Jr[facility] 05-12-2021 08:36-0400 Heart rate 78 /min Cintia Alves Jr. [facility] 05-12-2021 08:36-0400 Mean blood pressure 93 mm[Hg] Cintia Alves Jr[facility] 05-12-2021 08:36-0400 Respiratory rate 18 /min Cintia Alves Jr. [facility] 05-12-2021 08:36-0400 SaO2% (BldA) [Mass fraction] 94 % Cintia Alves Jr. [facility] 05-12-2021 08:36-0400 Systolic blood pressure 132 mm[Hg] Cintia Alves Jr[facility] 12-04-2019 07:25-0400 Body Temperature 98.6 [degF] [facility] [place] 12-04-2019 07:25-0400 BP Diastolic 86 mm[Hg] [facility] , [place] 12-04-2019 07:25-0400 BP Systolic 158 mm[Hg] [facility] , [place] 12-04-2019 07:25-0400 Pulse (Heart Rate) 63 /min [facility] [place] 12-04-2019 07:25-0400 Pulse Oximetry 94 % [place] 12-04-2019 07:25-0400 Respiratory Rate 16 /min Boy [place], [place] 12-04-2019 04:00-0400 BMI (Body Mass Index) 34.07 kg/m2 [place] 12-04-2019 04:00-0400 Body weight 110.81 kg [place] 12-03-2019 06:32-0400 Height 180.3 cm [place] 11-19-2019 13:41-0400 BP Diastolic 95 mm[Hg] [address] 11-19-2019 13:41-0400 BP Systolic 151 mm[Hg] [address] 11-19-2019 12:18-0400 BMI (Body Mass Index) 32.62 kg/m2 [address] 11-19-2019 12:18-0400 Body Temperature 98.1 [degF] [address] 11-19-2019 12:18-0400 Body weight 106.[address] 11-19-2019 12:18-0400 Height 180.[address] 11-19-2019 12:18-0400 Pulse (Heart Rate) 67 /min [address] 11-19-2019 12:18-0400 Pulse Oximetry 98 % [address] 11-19-2019 12:18-0400 Respiratory Rate 18 /min [address] Encounters Encounter Date Encounter Type Care Provider Facility Start: 06-17-2023 End: 06-17-2023 [facility] Start: 06-16-2023 End: 06-16-2023 [facility] Start: 06-13-2023 End: 06-13-2023 [facility] Start: 06-12-2023 End: 06-16-2023 Evaluation and management of inpatient LYSSA CARDENAS [facility] Start: 06-11-2023 End: 06-16-2023 Evaluation and management of inpatient ANJELICA LLAMAS [facility] Start: 06-11-2023 End: 06-16-2023 Evaluation and management of inpatient JENNY A [facility] Start: 06-11-2023 End: 06-12-2023 Emergency department [facility] Start: 06-11-2023 Encounter for other preprocedural examination ANA Ariza [facility] Start: 05-20-2023 End: 05-21-2023 ambulatory [facility] Start: 05-12-2023 End: 05-13-2023 ambulatory [facility] Start: 05-11-2023 End: 05-11-2023 ambulatory [facility] Start: 05-11-2023 End: 05-11-2023 Office outpatient visit 40 minutes [facility] ISRRAEL-MICHELLE Work Phone: [facility] Comment on above: Mixed headache (Prim kenya Dx); Blepharospasm of right eye; 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 Start: 05-03-2023 End: 05-03-2023 ambulatory [facility] Start: 05-03-2023 End: 05-03-2023 Office consultation new/estab patient 60 min Rosa Maria Rome MD Work Phone: [facility] Comment on above: Adrenal disorder ( S-HCC) Start: 05-02-2023 Sukumar Michel MD Work Phone: [facility] Start: 04-15-2023 End: 04-15-2023 ambulatory MAYSEL Emmanuel [facility] Start: 04-15-2023 End: 04-15-2023 Office outpatient visit 25 minutes Carolina Richard MD Work Phone: [facility] Comment on above: 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) (Primary Dx); Syncope, unspecified syncope type; Hypertension, unspecified type Start: 04-14-2023 Telephone encounter Desirae Herrera CMA [facility] Start: 03-24-2023 End: 03-24-2023 [facility] Start: 03-21-2023 Telephone encounter Maxwell loyola MD Work Phone: [facility] Comment on above: Hospital Follow-up Start: 03-19-2023 End: 03-22-2023 Evaluation and management of inpatient [facility] Start: 03-18-2023 End: 03-22-2023 Evaluation and management of inpatient [facility] Start: 03-17-2023 End: 03-22-2023 Evaluation and management of inpatient [facility] Start: 03-15-2023 End: 03-22-2023 Evaluation and management of inpatient [facility] Start: 03-14-2023 End: 03-15-2023 Emergency department patient visit JENNY Hector [facility] Start: 02-10-2023 End: 02-11-2023 ambulatory [facility] Start: 01-31-2023 End: 02-01-[address] [facility] Start: 04-19-2022 End: 04-19-[address] JENNY CAST Facility:[facility] Start: 01-24-2022 End: 01-24-[address] BECK SAENZ Facility:[facility] Start: 12-01-2021 End: 12-02-2021 ambulatory VERNELL WILKERSON Facility:[facility] Start: 12-01-2021 End: 12-02-2021 ambulatory VERNELL WILKERSON . Facility:[facility] Start: 12-01-2021 End: 12-01-2021 Lab Drop off VERNELL WILKERSON [facility] Start: 11-09-2021 End: 11-10-[address] KAY MARROQUIN Facility: Start: 08-18-2021 End: 08-19-2021 ambulatory Cint[facility] Alves [facility] Start: 08-18-2021 End: 08-18-2021 Patient encounter procedure Cintia Alves Jr. [facility] Start: 06-09-2021 ambulatory Cintia Alves Facility:[facility] Start: 06-09-2021 End: 06-10-2021 ambulatory Cintia Alves [facility] Start: 06-09-2021 End: 06-09-2021 Patient encounter procedure Cintia Alves Jr. [facility] Start: 05-21-2021 End: 05-21-2021 ambulatory Cintia Alves Facility:[facility] Start: 05-20-2021 Encounter for preprocedural cardiovascular examination DR CINTIA Banuelos [facility] Start: 05-16-2021 End: 05-17-[address] CINTIA Banuelos Facility: Start: 05-15-2021 ambulatory Cintia Alves Facility:[facility] Start: 05-12-2021 End: 05-13-2021 ambulatory Cintia Alves Facility:[facility] Start: 05-12-2021 End: 05-12-2021 Patient encounter procedure Cintia Alves Jr. [facility] Start: 04-30-2021 ambulatory Cintia Alves Facility:[facility] Start: 04-28-2021 End: 04-29-2021 ambulatory Cintia Alves [facility] Start: 04-10-2021 End: 04-13-2021 ambulatory [facility] Start: 04-02-2021 End: 04-03-2021 ambulatory Cintia Alves Facility:[facility] Start: 03-31-2021 End: 04-03-2021 ambulatory AZUCENA EVANS [facility] Start: 02-25-2021 ambulatory Cintia Alves Facility:[facility] Start: 02-24-2021 End: 02-25-2021 ambulatory Cintia Alves Facility:[facility] Start: 01-13-2021 ambulatory Cintia Alves Facility:[facility] Start: 12-03-2019 End: 12-04-2019 Subsequent hospital visit by physician Boy Polk Work Phone: [facility] Start: 11-29-2019 End: 12-03-2019 Subsequent hospital visit by physician Kathya Pat Rm 4 [facility] PRE[facility]MIT [facility] Start: 11-19-2019 End: 11-23-2019 Subsequent hospital visit by physician Kathya Hurley Rm 1 [facility] Start: 03-09-2018 End: 03-10-2018 Patient encounter procedure CARLOS EVANS Facility:[facility] Start: 01-26-2018 End: 01-27-2018 Patient encounter procedure CARLOS EVANS Facility:[facility] Start: 12-29-2017 End: 12-30-2017 Patient encounter procedure CARLOS EVANS Facility:[facility] Start: 12-01-2017 End: 12-02-2017 Patient encounter procedure HEMA VILCHIS Facility:[facility] Start: 11-18-2017 End: 11-19-2017 Patient encounter procedure KRISHNA CHRISTIAN Facility:[facility] Start: 11-15-2017 Encounter for other specified special examinations CARLOS EVANS [facility] Start: 11-15-2017 End: 11-16-2017 Patient encounter procedure CARLOS EVANS Facility:[facility] Start: 11-15-2017 Patient encounter status Nathaly Milligan MD Work Phone: [employer] Start: 07-25-2017 End: 07-26-2017 Patient encounter procedure JAYESH LAZO Facility:[facility] Start: 05-27-2017 End: 05-28-2017 Patient encounter procedure TONJA COBURN Facility:[facility] Start: 05-04-2017 End: 05-05-2017 Patient encounter procedure Maira Alyssa Facility:[facility] Encounter for other specified special examinations CARLOS EVANS [facility] Procedures Date Procedure Procedure Detail Performing Clinician Start: 05-11-2023 Follow-up visit Follow-up CIPRIANO COBURN Start: 05-11-2023 Adult depression scr eening assessment Tonja Coburn ENGINE PILOT-PRESSROOM SUPERVISOR Work Phone: Start: 04-15-2023 Follow-up visit Follow-up SOUMYA Benitez FRANK Start: 03-16-2023 Adult depression scr eening assessment Maxwell Milligan MD Work Phone: Start: 05-21-2021 Circumcision Cintia Magy Jr. Start: 12-04-2019 BASIC METABOLIC PANE L [...] Start: 11-29-2019 COVID-19 AMBULATORY Andi s E Alas Work Phone: Start: 11-19-2019 Hemoglobin glycosylated a1c Boy Polk Work Phone: Start: 11-19-2019 Prothrombin time Boy Polk Work Phone: Start: 11-19-2019 Thromboplastin time partial plasma/whole blood Boy Polk Work Phone: Start: 11-19-2019 Urnls dip stick/tabl et rgnt auto w/o microscopy Boy Polk Work Phone: Start: 11-19-2019 Iadna s aureus methi cillin resist amp probe tq Boy Murillollah Work Phone: Start: 11-18-2017 ANESTH LOWER ARM [...] Date Care Activity Detail Author Start: 10-31-2029 DTaP,Tdap and Td Vaccines (2 - Td or Tdap) DTaP,Tdap and Td Vaccines (2 - Td or Tdap) [facility] Start: 10-31-2029 DTaP/Tdap/Td vaccine (2 - Td) DTaP/Tdap/Td vaccine (2 - Td) [place] Start: 05-10-2024 Adult BMI Screening [facility] Start: 05-10-2024 Depression Screening Depression Screening [facility] Start: 05-10-2024 Tobacco Screening Tobacco [facility]ening [facility] Start: 05-02-2024 Adult BMI Screening Adult [facility] Screening [facility] Start: 05-02-2024 Tobacco Screening Tobacco Screening [facility] Start: 04-14-2024 Adult BMI Screening Adult [facility] Screening [facility] Start: 04-14-2024 Tobacco Screening Tobacco Screening [facility] Start: 03-19-2024 Adult BMI Screening Adult [facility] Screening [facility] Start: 03-16-2024 Depression Screening Depression Screening [facility] Start: 09-22-2023 Tobacco Screening Tobacco Screening [facility] Start: 08-25-2023 End: 08-25-2023 Patient encounter procedure 08/25/2023 2:15 PM EDT Appointment [facility] [address] [place] [address] [facility] Start: 08-23-2023 End: 08-23-2023 Patient encounter procedure 08/23/2023 2:30 PM EDT Office Visit [facility] [address] [place] [address] Kaykay Michel MD [address] [place] [address] [facility] Start: 08-12-2023 End: 08-12-2023 Patient encounter procedure 08/12/2023 10:15 AM EDT Office Visit [facility] [address] [place] [address] Rosa Maria Rome MD [address] [place] [address] [facility] Start: 05-12-2023 End: 05-12-2023 Patient encounter procedure 05/12/2023 1:15 PM EDT Appointment [facility] [address] [place] [address] [facility] Start: 05-03-2023 End: 05-03-2023 Patient encounter procedure 05/03/2023 2:00 PM EDT Office Visit [facility] [address] [place] [address] Rosa Maria Rome MD [address] [place] [address] [facility] Start: 04-22-2023 End: 04-14-2024 Wireless Telemetry (In Office) Wireless Telemetry (In Office) Cardiac Services Routine Syncope, unspecified syncope type Expected: 04/22/2023 (Approximate), Expires: 04/14/2024 [facility] Work Phone: Comment on above: Expected: 04/22/2023 (Approximate), Expi res: 04/14/2024 Start: 04-15-2023 End: 04-15-2023 Patient encounter procedure 04/15/2023 10:15 AM EST Office Visit [facility] [address] [place] [address] Carolina Richard MD [address] [place] [address] Soumya Marie MD [address] [place] [address] [facility] Start: 10-15-2022 COVID-19 Vaccine ( season) COVID-19 Vaccine () [facility] Start: 08-24-2022 ambulatory [facility] Start: 12-03-2019 End: 12-03-2019 Hospital Encounter [facility] Comment on above: INTRATHECAL PUMP REPLACEMENT AND CATHETE R REVISION Start: 11-29-2019 End: 11-29-2019 Appointment 11/29/2019 Appointment Pre-Admission Testing [facility] Start: 11-19-2019 Annual Wellness Visit (AWV) Annual Wellness Visit (AWV) [place] Start: 10-16-2019 Influenza vaccination Flu vaccine (#1) [place] Start: 2013 Fall Risk Screening Fall Risk Screening [facility] Start: 1998 Screening for malignant neoplasm of colon Colon cancer screen colonoscopy [place] Start: 08-29-1967 DTaP/Tdap/Td vaccine (1 - Tdap) DTaP/Tdap/Td vaccine (1 - Tdap) [place] Start: 1966 Adult BMI Follow Up Plan Adult BMI Follow Up Plan [facility] Start: 1958 Lipid panel Lipid screen [place], [place] Start: 1948 Abdominal aortic aneurysm screening AAA screen [facility] [place] Start: 1948 Creatinine measurement Creatinine monitoring [facility] Start: 1948 Hepatitis C screening Hepatitis C screen [facility] [place] Start: 1948 Medicare Annual Wellness Visit Medicare Annual Wellness Visit [employer] Start: 1948 Potassium monitoring Potassium monitoring [facility] [place] End: 05-02-2024 ACTH ACTH Lab Routine Adrenal disorder ([facility]) 1 Occurrences starting 05/03/2023 until 05/02/2024 [employer] Comment on above: 1 Occurrences starting 05/03/2023 until 05/02/2024 End: 05-02-2024 Aldosterone Note: Restrict Location Aldosterone Note: Restrict Location Lab Routine Adrenal disorder ([facility]) 1 Occurrences starting 05/03/2023 until 05/02/2024 [employer] Comment on above: 1 Occurrences starting 05/03/2023 until 05/02/2024 End: 05-02-2024 Comprehensive metabolic 2000 panel - Serum or Plasma Comprehensive metabolic panel Lab Routine Adrenal disorder ([facility]) 1 Occurrences starting 05/03/2023 until 05/02/2024 [employer] Comment on above: 1 Occurrences starting 05/03/2023 until 05/02/2024 Continuous pulse oximetry Pulse oximetry, continuous Respiratory Care Routine Every 4hr until discontinued starting 12/03/2019 [place] Comment on above: Every 4hr until discontinued starting End: 05-02-2024 Cortisol Cortisol Lab Routine Adrenal disorder ([facility]) 1 Occurrences starting 05/03/2023 until 05/02/2024 [employer] Comment on above: 1 Occurrences starting 05/03/2023 until 05/02/2024 End: 11-29-2019 COVID-19 COVID-19 Lab Routine One Time for 1 Occurrences starting 11/29/2019 until 11/29/2019 [place] Comment on above: One Time for 1 Occurrences starting 11/14 until 11/29/2019 End: 05-02-2024 DHEA-sulfate DHEA-sulfate Lab Routine Adrenal disorder ([facility]) 1 Occurrences starting 05/03/2023 until 05/02/2024 [employer] Comment on above: 1 Occurrences starting 05/03/2023 until 05/02/2024 Intermittent pulse oximetry Pulse Oximetry Spot Check Respiratory Care Routine As Needed until discontinued starting 12/03/2019 [facility] Comment on above: As Needed until discontinued starting End: 05-02-2024 Metanephrines, Fract Free Metanephrines, Fract Free Lab Routine Adrenal disorder ([facility]) 1 Occurrences starting 05/03/2023 until 05/02/2024 [employer] Work Phone: Comment on above: 1 Occurrences starting 05/03/2023 until 05/02/2024 Oxygen therapy [Minimum Data Set] Initiate Oxygen Therapy Protocol Respiratory Care Routine Daily until discontinued starting 12/03/2019 [facility] Comment on above: Daily until discontinued starting 2019 End: 05-02-2024 Renin Activity Renin Activity Lab Routine Adrenal disorder ([facility]) 1 Occurrences starting 05/03/2023 until 05/02/2024 [employer] Comment on above: 1 Occurrences starting 05/03/2023 until 05/02/2024 Wireless Telemetry ( In Office) Wireless Telemetry (In Office) Cardiac Services Routine Syncope, unspecified syncope type 04/15/2023 10:45 AM EST [employer] Immunizations Immunization Date Immunization Notes Care Provider Hallie nixon 11-08-2022 Influenza, High-dose , Quadrivalent Maxwell Milligan MD [facility] Phone[facility] 11-08-2022 RSV, recombinant, protein subunit RSVpreF, adjuvant reconstituted, 0.5 mL, PF Maxwell Milligan MD Work Phone: [facility] 10-23-2020 Influenza Vaccine, Quadrivalent, Adjuvanted Maxwell Milligan MD Work Phone: [facility] 07-16-2020 SARS-CoV-2 (COVID-19 ) Ad26 vaccine, recombinant Cintia Alves Jr. [facility] 06-18-2020 SARS-CoV-2 (COVID-19 ) Ad26 vaccine, recombinant Cintia Shawn Allen [facility] 04-28-2020 COVID-19, mRNA, LNP- S, PF, 30mcg/0.3mL Dose Maxwell Milligan MD Work Phone: [facility] 04-07-2020 COVID-19, mRNA, LNP- S, PF, 30mcg/0.3mL Dose Maxwell Milligan MD Work Phone: [facility] 11-01-2019 influenza, injectabl e, quadrivalent, preservative free Maxwell Milligan MD Work Phone: [facility] 11-01-2019 Influenza, Quadv, adjuvanted, 65 yrs +, IM, PF (Fluad) [address] 11-01-2019 tetanus toxoid, redu rich diphtheria toxoid, and acellular pertussis vaccine, adsorbed [address], [place] 12-07-2018 Seasonal trivalent influenza vaccine, adjuvanted, preservative free Maxwell Milligan MD Work Phone: [facility] 10-26-2017 Seasonal trivalent influenza vaccine, adjuvanted, preservative free [address] 10-26-2017 zoster vaccine recombinant [address] 06-22-2017 zoster vaccine recombinant [address] 09-27-2016 Seasonal trivalent influenza vaccine, adjuvanted, preservative free [address] 11-06-2015 influenza, high dose seasonal, preservative-free [address] 11-06-2015 pneumococcal conjuga te vaccine, [address] 10-31-2015 pneumococcal conjuga te vaccine, [address] 10-28-2014 influenza, high dose seasonal, preservative-free [address] 10-18-2013 pneumococcal polysaccharide vaccine, [address] Payers Date Payer Category Payer Private Health Insurance [employer] [id number] 2013-Present [address] [address] [place] [address] [id number] 1985 Medicare MEDICARE MEDICAR E PART A & B [id number] 1985-Present [phone] [address] [place] [address] [id number] .[id number] 1959 Medicare [id number] [id number] .2.7.3.596759.315 1959 Unknown [id number] 1948 Unknown [id number] 2.16.840.1.888131.3.579 .2.647 1948 Unknown [id number] 2.16.840.1.899673.3.579 .2.647 1948 Unknown [id number] 2.16.840.1.295253.3.579 .2.647 1948 Unknown [id number] 2.16.840.1.466858.3.579 .2.647 1948 Unknown [id number] 2.16.840.1.067336.3.579 .2.647 1948 Unknown [id number] 2.16.840.1.805981.3.579 .2.647 1948 Unknown [id number] 2.16.840.1.164678.3.579 .2.647 1948 Unknown [id number] 2.16.840.1.247376.3.579 .2.647 1948 Unknown [id number] 2.16.840.1.005768.3.579 .2.647 1948 Unknown [id number] 2.16.840.1.299733.3.579 .2.177 1948 Unknown [id number] 2.16.840.1.591541.3.579 .2.177 1948 Unknown [id number] 2.16.840.1.541785.3.579 .2.177 1948 Unknown [id number] 2.16.840.1.051175.3.579 .2. 1948 Unknown [id number] 2.16.840.1.929461.3.579 .2. 1948 Unknown [id number] 2.16.840.1.434551.3.579 .2. 1948 Unknown [id number] 2.16.840.1.903597.3.579 .2 1948 Unknown [id number] 2.16.840.1.291800.3.579 .2 1948 Unknown [id number] 2.16.840.1.014964.3.579 .2 1948 Unknown [id number] 2.16.840.1.487848.3.579 .2 1948 Unknown [id number] 2.16.840.1.830512.3.579 .2 1948 Unknown [id number] 2.16.840.1.368739.3.579 .2 1948 Unknown [id number] 2.16.840.1.115297.3.579 .2 1948 Unknown [id number] 2.16.840.1.182781.3.579 .2 1948 Unknown [id number] 2.16.840.1.817309.3.579 .2 1948 Unknown [id number] 2.16.840.1.241626.3.579 .2 1948 Unknown [id number] 2.16.840.1.728908.3.579 .2.593 1948 Unknown [id number] 2.16.840.1.180701.3.579 .2.593 1948 Unknown [id number] 2.16.840.1.538980.3.579 .2.593 1948 Unknown [id number] 2.16.840.1.397006.3.579 .2.593 1948 Unknown [id number] 2.16.840.1.567597.3.579 .2.593 1948 Unknown [id number] 2.16.840.1.797309.3.579 .2.1285 1948 Unknown [id number] 2.16.840.1.976917.3.579 .2.1285 1948 Unknown [id number] 2.16.840.1.368289.3.579 .2.1285 1948 Unknown [id number] 2.16.840.1.682239.3.579 .2.1285 1948 Unknown [id number] 2.16.840.1.154290.3.579 .2.1285 1948 Unknown [id number] 2.16.840.1.003158.3.579 .2.1285 1948 Unknown [id number] 2.16.840.1.605691.3.579 .2.1285 1948 Unknown [id number] 2.16.840.1.315098.3.579 .2.1285 1948 Unknown [id number] 2.16.840.1.276985.3.579 .2.1285 1948 Unknown [id number] 2.16.840.1.372119.3.579 .2.1285 1948 Unknown [id number] 2.16.840.1.109107.3.579 .2.1285 1948 Unknown [id number] 2.16.840.1.323548.3.579 .2.1285 1948 Unknown [id number] 2.16.840.1.297660.3.579 .2.1285 1948 Unknown [id number] 2.16.840.1.315381.3.579 .2.1285 1948 Unknown [id number] 2.16.840.1.961671.3.579 .2.1285 1948 Unknown [id number] 2.16.840.1.512894.3.579 .2.1285 1948 Unknown [id number] 2.16.840.1.259071.3.579 .2.1285 1948 Unknown [id number] 2.16.840.1.929204.3.579 .2.1285 1948 Unknown [id number] 2.16.840.1.737160.3.579 .2.1285 1948 Unknown [id number] 2.16.840.1.885459.3.579 .2.1285 1948 Unknown [id number] 2.16.840.1.650103.3.579 .2.1285 1948 Unknown [id number] 2.16.840.1.630639.3.579 .2.1285 1948 Unknown [id number] 2.16.840.1.871356.3.579 .2.1285 1948 Unknown [id number] 2.16.840.1.415995.3.579 .2.1285 1948 Unknown [id number] 2.16.840.1.661915.3.579 .2.1285 1948 Unknown [id number] 2.16.840.1.473494.3.579 .2.1285 1948 Unknown [id number] 2.16.840.1.424609.3.579 .2.1286 1948 Unknown [id number] 2.16.840.1.790152.3.579 .2.1286 1948 Unknown [id number] 2.16.840.1.040986.3.579 .2.1286 1948 Unknown [id number] 2.16.840.1.178042.3.579 .2.1286 Medicare [id number] Social History Date Type Detail Facility Start: 11-19-2019 End: 01-19-2022 Tobacco smoking status NHIS Former sm[place] End: 03-08-2007 History of tobacco use Cigarette [place] Start: 11-19-2019 End: 01-19-2022 Tobacco use and exposure Never used [place] Start: 11-19-2019 End: 12-03-2019 Alcohol intake Ex-drinker (finding) [facility] Start: 11-19-2019 Tobacco Comment quit smoking 1 2 years ago (written 11/19/2019) [place] Start: 1950 Sex Assigned At Not on file [place] Exposure to SARS-CoV -2 (event) Not sure [place] Start: 03-12-2020 End: 03-16-2023 Sex Assigned At Male [facility] End: 03-08-2007 History of tobacco use Current smoker [facility] Start: 03-12-2020 End: 01-19-2022 Cigarettes smoked current (pack per day) - Reported 1 [facility] Start: 09-21-2022 End: 05-11-2023 Alcohol intake Current non-drinker of alcohol (finding) [facility] How often to you hav e a drink containing alcohol? Never [facility] How many standard drinks containing alcohol do you have on a typical day? Patient does not drink [facility] Medical Equipment Procedure Code Equipment Code Equipment Origin al Text Equipment Identifier Dates Pump Infuse Pain Synchromed Ii 40ml - [id number] Start: 12-03-2019 Cath Ascenda 114cm [id number] Start: 12-03-2019 Cap Lck Quartex Spne Thrd Rpl Special [id number] - [id number] Start: 03-24-2022 Dilaudid Infusio n Pump-06/21/2013 [id number] Start: 06-21-2013 Comment on above: Description: 1.5T/3T head/torso/extremity Cezar Spnl Quartex 55mm 4mm Crv Ns Lf - [id number] Start: 03-24-2022 Screw Bn 14mm 3.5mm Pa Spne Quartex Ns Lf - [id number] Start: 03-24-2022 Goals Date Patient Goal Desired Activity /State Personal health goal Comment on above: Formatting of this n ote might be different from the original. Evaluation of progress towards goal: Pt will return to his [facility] facility. Functional Status Date Assessment Result Facility 08-18-2021 Functional Status N/A [facility] Clinical Notes 04-02-2021 to 05-11-2023 Tonja Coburn APRN-PRESSROOM SUPERVISOR - 05/11/2023 11:30 AM EDTPatient Landon Rome MD - 05/03/2023 2:00 PM EDTPatient InstructionsSoumya Marie MD - 04/15/2023 10:15 AM EST Note Date & Type Note Facility 05-11-2023 History of Present illness Narrative Images from the original note were not included. [address] [facility] [address] Patient: Kylie Rueda Date of : 1950 Encounter Date: 05/11/2023 History of Present Illness: The patient is a 72 y.o. male, an established patient, and is here for Follow-up (Chief complaint headache.) Kylie Rueda has history of sudden onset of slurred speech, right-sided numbness, and right facial weakness in conjunction with fever (101.7 degrees) and right temporal burning on 12/04/2014. Diagnosed with ischemic stroke the etiology most likely related to small vessel disease. The stroke was not visible on CT (MRI was contra-indicated) and the main residual neurological signs included right-sided numbness (face and body), and right hemifacial spasm, with daily stabbing eye pain, photophobia, and lacrimation. My last assessment on 10/28/2021 he had improved - stable headache disorder. He was most bothered with increase in frequency of hemifacial spasm on right related to missed botox therapy. He also was concerned with weakness and muscle atrophy between thumb and 1st finger on right hand which made it difficult to pinch small items; such as nail clippers. He reported past history of right wrist fracture repaired by insertion of a steel plate. With regards to, new symptom described as lower right arm shakes (infrequent) started after the last visit in July 2021. Shaking completely stopped when he tightens muscles in his arm and rest, sometimes triggered by lifting items or using his thumb and 1st finger. Denied new symptoms of stroke or TIA. He was last evaluated by Dr. Michel on 01/28/2022 pmh presumed L MCA infarct 2014 (no MRI, no clear encephalomalacia on CTH), chronic LLE and back pain, COPD, depression/anxiety, chief complaint headache. He also reported R hand weakness ongoing for near year, pain as well. A CTH was negative, recommended MRI Brain and C-spine, but never had testing done (him and Daughter not sure. Daughter reported possible TIA sx last week, with confusion, generalized weakness, shaking, and headache (daughter reported BP variation at the time, unsure of details, and sx ongoing for ~1 week). Evaluated at OSH ED no records available, and started on Aspirin 81 mg. R facial hemispasm and blepharospasm. Bioccipital headaches (possible neuralgia), stable on CBX 400 BID. Occasional R eye blepharospasm improved w/ Botox. Follows w/ pain management Dr. Polk, PCP. On Verapamil ER 240 mg bedtime, Lyrica 100 BID, Cymbalta 60, Dilaudid Pain pump and oxycodone to control low back pain, Baclofen 10 TID, Diazepam 5 mg, 4 times/day, THC Gummies. Neurological examination w/ chronic LLE weakness, continued R hand and RUE significant weakness, atrophy. Prior CTA head/neck, CTH, as per above, reviewed. No MRI Brain/C-spine imaging does not appear to have been completed. IMPRESSION: 1.) Possible L sided repeat infarct causing R hand weakness vs. Cervical pathology vs. Worsening ulnar and median neuropathy. EMG severe R median neuropathy, R ulnar entrapment, and L sided carpal tunnel as well. 2.) History of presumed L sided infarct, possible recent TIA? 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 Today he presents unaccompanied using Rollator (walker on wheels with seat) and reports the following information: Currently resides in [facility]. He drove self to appointment. He comments on being aware to pull off the road if he starts to feel dizzy. Since the last visit, he reports the headaches unchanged in character and location. He reports experiencing headache everyday starting in the back of neck to back of head to forehead. He has a current slight headache, intensity 1/10 across forehead, no accompany symptoms. He has new neurological symptoms. On 03/14/2023 he was evaluated at [facility] for episodes of unresponsiveness, reported could not feel his legs, able to follow some commands. Stroke Alert. Diagnosis Altered mental status, weakness in extremities. Transferred to [facility] inpatient 03/15/2023 - 03/21/2023 Primary discharge diagnosis: Syncope, Sepsis secondary to UTI. Secondary Discharge diagnosis: Recrudescence, Possibly Adrenal insufficiency. Recently evaluated by cardiology, Dx Adrenal disorder, additional testing ordered. Since hospital discharge, he reports one fall after he felt dizzy that occurred a few weeks ago, witness by his daughter. He recalls he felt dizzy, went out for a short time felt okay on awakening. He comments daughter says did not hit head . He underwent neck surgery on 03/24/2022 at [facility]. Posterior laminectomy fusion C3-C6. Headache characteristics: Date # Days /Mo Total # Days/Mo Severe # Days/Mo Disabling TRINH # Days/Mo Acute meds used 05/11/2023 Daily 5-6 0 Daily Tylenol 2 tablets every 6 hours. 01/28/2022 15 0 0 0 10/28/2021 10 0 0 0 07/24/2021 See note - - - 12/31/2020 16 (mild 4/week) 0 0 0 06/25/2020 30 0 0 0 06/12/2019 8 0 0 8 01/30/19 few 0 0 0 - Aura: None - Quality: Stabbing - Location at onset: Back of head and behind eyes (mostly right) or confucianism. 05/11/2023 back of neck - Radiation: None 05/11/2023 to back of head to forehead. - Maximum severity: 04/23 previously 03/26 - Associated symptoms: tingling, burning in right lower face tightness twitching right orbicularis oculi and right jaw triggered by eating or activities involving jaw. 05/11/2023 no twitching since botox therapy - Duration of headache: 1-3 hours after treatment with Tylenol previously Varies - Comorbidities: anxiety, asthma, COPD, depression, GERD, hyperlipidemia, hypertension, SOB, stroke, syncope, TIA Treatment: Preventive: Past: Magnesium oxide Present: Quarterly botox therapy for hemifacial spasms found effective to prevent facial twitching. Continues Carbamazepine ER 400 mg every 12 hours. Denies side effects. Continues Verapamil ER 240 mg bedtime (prescribed by PCP) . Continues Clopidogrel 75 mg once a day prescribed by other provider Continues Lyrica 100 mg twice a by prescribed by other provider No longer use THC Gummies. Abortive: Past: None Present: Tylenol 2 tablets every 6 hours administered by nurse at [facility]. Other treatments: 05/11/2023 Dilaudid Pain pump to control low back pain with Dr. Polk 05/11/2023 Physical therapy at assisted living residence. TESTS: 03/20/2023 ACTH abnormal 78.6H 03/21/2023 CBC abnormal RBC 3.33L, Hgb 10.0L, Hct 29.0L 03/21/2023 BMP abnormal glucose 108H 08/11/2012 MRI brain without contrast. INDICATION: Trouble with memory, slurred speech, falls, confusion. FINDINGS: The ventricles and sulci are within normal limits for age. There is no hydrocephalus. There is no restricted diffusion to suggest acute infarction. There are no foci of abnormal parenchymal signal. There is no midline shift, mass-effect, or abnormal extra-axial fluid collections. Pituitary gland is not abnormally enlarged. There is no evidence for a Chiari I malformation. The orbital apices are clear. The flow voids of the [place] are visualized, implying that the vessels are patent. There is scattered mild paranasal sinus mucosal thickening, with a mucous retention cyst at the right maxillary sinus. IMPRESSION: No acute infarction. No acute intracranial findings. 12/04/2014 CT brain: mild chronic white matter disease, no infarct or mass. sinus disease in ethmoid and maxillary sinus 12/04/2014 CTA brain and carotids: negative 12/04/2014-12/07/2014 Cardiac Telemetry: no atrial fibrillation 11/09/2016 EEG is abnormal due to mild, intermittent left frontal slowing of the background. This infers structural or functional abnormality over the left frontal lobe, although this is not an epilepticform finding. No epileptiform abnormalities are noted, however, that does not exclude the possibility of intermittent seizure activity. No facial twitching occurred during this recording. 12/02/[address] Agustina Roman PhD 01/25/2017 CT brain without contrast IMPRESSION: Mild chronic microvascular ischemic changes without evidence of acute intracranial pathology. 05/27/2017 Carotid Duplex bilateral. IMPRESSION 1. Antegrade flow of both vertebral arteries. 2. Stenosis in the range of 0-15% in both internal carotid arteries. 05/13/2018 CT brain without contrast Stroke alert. FINDINGS: There is no evidence for acute intracranial hemorrhage. There is no hydrocephalus, mass effect, or midline shift. Hawthorne-white differentiation is preserved with no CT evidence for an acute infarct. There is mucosal thickening of the paranasal sinuses with a mucous retention cyst or polyp within the right maxillary sinus. IMPRESSION: No evidence for an acute intracranial process. 09/04/2021 CT brain without contrast FINDINGS: The ventricular system is normal in size and configuration. There is normal differentiation of hawthorne and white matters. There is no evidence of intracranial hemorrhage or acute pathology. The cerebellum and brainstem are unremarkable.No mass effect, midline shift of the structures or extra-axial fluid collections are noted. The calvarium is intact. Mucosal thickening is seen in multiple paranasal sinuses consistent with chronic sinusitis. Mastoid air cells are clear. IMPRESSION: 1. No evidence of intracranial hemorrhage, hypodense abnormality or acute pathology. 2. Chronic paranasal sinusitis. 09/04/2021 Echo complete with contrast. Interpretation: Left Ventricle: Left ventricle appears normal in size. There is mild increased wall thickness/hypertrophy. Systolic function is normal with an ejection fraction of 60-65%. Right Ventricle: Normal tricuspid annular plane systolic excursion. Aortic Valve: There is no regurgitation or stenosis. Mitral Valve: There is mild regurgitation. There is no evidence of mitral valve stenosis. Tricuspid Valve: Tricuspid valve appears to be normal. The leaflets exhibit normal excursion. There is trace regurgitation. There is no evidence of tricuspid valve stenosis. Pericardium: There is a right pleural effusion. Aorta: The aortic root is normal in size. 03/15/2023 MRI lumbar spine with and without contrast IMPRESSION: 1. Multilevel degenerative changes lumbar spine, similar compared to prior, most prominent at L4-L5 where there is moderate spinal canal stenosis.. 2. Nonspecific myositis of the posterior paraspinal musculature. 3. Edema and enhancement about the lower lumbar facets favored to be degenerative. There are associated small facet effusions, although no definite facet joint irregularity. Infection could be considered, although much less likely. 4. Atrophic kidneys with multiple T1 dark lesions, possibly cysts, although indeterminate, please see ultrasound exam. 03/17/2023 MRI cervical spine without contrast IMPRESSION:Evaluation is limited to sagittal planes. No definite acute abnormalities are identified. Posterior element fusion and laminectomies from C3 to C6. Mild to moderate spinal canal stenosis at C2-C3, C6-C7, and C7-T1. No corresponding cord signal abnormality. Neural foramina are not well visualized on the provided sequences. Minimal anterolisthesis of C2 on C3. Approximately 4 mm of anterolisthesis of C7 on T1, unchanged. 03/17/2023 MRI brain without contrast. There is no cortical signal characteristic abnormality. Gradient echo sequences show no significant susceptibility to suggest hemorrhage or hemosiderin deposition. The diffusion-weighted images show no evidence of diffusion restriction or acute intracranial ischemia. Corresponding ADC map unremarkable. Ventricles are nondilated. Cerebral volume appears age appropriate. Minimal white matter changes noted, age appropriate. Trace fluid present within the right mastoid air cells. Paranasal sinuses appear clear. No flow void abnormality. IMPRESSION: No acute intracranial findings. Allergies: Iodinated contrast media and Sulfa (sulfonamide antibiotics) Past Medical, Family, Surgical, and Social History Update: The following portions of the patient's history were reviewed and updated as appropriate: allergies, current medications, past family history, past medical history, past social history, past surgical history and problem list. Past Medical History: Diagnosis Date Anxiety Arthritis Asthma Benign prostate hyperplasia Cataract CHF (congestive heart failure) ([facility]) Chronic constipation Chronic pain syndrome COPD (chronic obstructive pulmonary disease) ([facility]) Dental disease upper and lower Depression Diastolic dysfunction Disc disorder of lumbar region GERD (gastroesophageal reflux disease) HL (hearing loss) left HLD (hyperlipidemia) HTN (hypertension) Low back pain Multiple lung nodules Obesity Orthostatic hypotension Peptic ulceration Pneumonia Pulmonary hypertension ([facility]) SOB (shortness of breath) Stroke ([facility]) 2014 Syncope and collapse TIA (transient ischemic attack) 02/08/2022 Visual impairment Glasses Family History Problem Relation Age of Onset Memory loss Mother No Known Problems Father Lung cancer Sister Rheum arthritis Sister Stomach cancer Maternal Grandfather Anesthesia problems Neg Hx Bleeding Disorder Neg Hx Clotting disorder Neg Hx Diabetes Neg Hx Prostate cancer Neg Hx Colon cancer Neg Hx Heart attack Neg Hx Stroke Neg Hx Past Surgical History: Procedure Laterality Date Cardiac catheterization 09/20/2019 Performed by Royer Lazar MD at [facility] CARDIAC CATH LABS COLONOSCOPY N/A 11/05/2016 Performed by Cole Ny MD at [facility] Coronary angiogram and right heart and left ventricular gram/pressure N/A 09/20/2019 Performed by Royer Lazar MD at [facility] CARDIAC CATH LABS FORAMINOTOMY C5-6 Left 03/24/2022 Performed by Reid Whatley MD at [facility] PAIN PUMP SURGERY 12/03/2019 POSTERIOR LAMINECTOMY FUSION CERVICAL MULTI LEVEL/C3-C6 N/A 03/24/2022 Performed by Reid Whatley MD at [facility] TIBIA FRACTURE SURGERY Current Outpatient Medications Medication Sig Dispense Refill acetaminophen (TYLENOL) 500 mg tablet Take 1 tablet (500 mg total) by mouth every 4 (four) hours as needed Indications: backache. aspirin 81 mg Take 1 tablet (81 mg total) by mouth in the morning. atorvastatin (LIPITOR) 40 mg tablet Take 1 tablet (40 mg total) by mouth in the morning. baclofen (LIORESAL) 10 mg tablet Take 1 tablet (10 mg total) by mouth 3 (three) times a day as needed Indications: muscle spasms caused by a spinal disease. carBAMazepine XR (TEGretol XR) 400 mg 12 hr tablet take 1 tablet by mouth twice a day 180 tablet 1 clopidogreL (PLAVIX) 75 mg tablet Take 1 tablet (75 mg total) by mouth in the morning. 30 tablet 11 diazePAM (VALIUM) 5 mg tablet Take 1 tablet (5 mg total) by mouth 4 (four) times a day as needed. DULoxetine (CYMBALTA) 30 mg capsule Take 2 capsules (60 mg total) by mouth in the morning. fluticasone propionate (FLONASE) 50 mcg/actuation nasal spray Administer 1 spray into each nostril in the morning. furosemide (LASIX) 40 mg tablet Take 1 tablet (40 mg total) by mouth daily as needed. HYDROMORPHONE HCL/PF (DILAUDID, PF, INJ) by continuous epidural route. levalbuterol (XOPENEX HFA) 45 mcg/actuation inhaler inhale 2 puffs by mouth and INTO THE LUNGS every 4 hours if needed for shortness of breath levalbuterol (XOPENEX) 0.63 mg/3 mL nebulizer solution Inhale 3 mL (0.63 mg total) by nebulization 3 (three) times a day. lisinopriL (PRINIVIL,ZESTRIL) 5 mg tablet Take 1 tablet (5 mg total) by mouth in the morning. (Patient taking differently: Take 2 tablets (10 mg total) by mouth in the morning.) 90 tablet 02 loratadine (CLARITIN) 10 mg tablet Take 1 tablet (10 mg total) by mouth in the morning. 0 montelukast (SINGULAIR) 10 mg tablet Take 1 tablet (10 mg total) by mouth nightly. 30 tablet 10 omeprazole (PriLOSEC) 40 mg capsule Take 1 capsule (40 mg total) by mouth as needed. 0 oxyCODONE (ROXICODONE) 5 mg immediate release tablet Take 1 tablet (5 mg total) by mouth every 8 (eight) hours as needed. pregabalin (LYRICA) 100 mg capsule Take 1 capsule (100 mg total) by mouth in the morning and 1 capsule (100 mg total) before bedtime. STIOLTO RESPIMAT 2.5-2.5 mcg/actuation mist Inhale 2 puffs in the morning. terazosin (HYTRIN) 2 mg capsule Take 1 capsule (2 mg total) by mouth nightly Indications: enlarged prostate with urination problem. 0 verapamil SR (CALAN-SR) 240 mg CR tablet Take 1 tablet (240 mg total) by mouth nightly. CEPHalexin (KEFLEX) 500 mg capsule Take 1 capsule (500 mg total) by mouth 3 (three) times a day. (Patient not taking: Reported on 05/11/2023) dextromethorphan HBr (CREOMULSION ADULT FORMULA) 20 mg/15 mL solution Take by mouth. As needed for cough. polyethylene glycol 3350 (MIRALAX ORAL) Take by mouth. Dissolve 1 capful in liquid and give by mouth daily. No current facility-administered medications for this visit. (All medications reviewed and updated by provider since last office visit or hospitalization) Tobacco History: Social History Tobacco Use Smoking Status Former Packs/day: 1.00 Years: 40.00 Additional pack years: 0.00 Total pack years: 40.00 Types: Cigarettes Quit date: 03/08/2007 Years since quittin.1 Smokeless Tobacco Never (If patient a smoker, smoking cessation counseling offered) Social History: Social History Substance and Sexual Activity Alcohol Use No Alcohol/week: 0.0 standard drinks of alcohol Review of Systems: Review of Systems HENT: Positive for tinnitus. Negative for congestion, sinus pressure and sinus pain. Eyes: Negative for photophobia, pain and visual disturbance. Respiratory: Positive for cough (not currently) and shortness of breath (COPD). Negative for chest tightness. Cardiovascular: Negative for chest pain, palpitations and leg swelling. High blood pressure Gastrointestinal: Negative for abdominal pain, constipation, diarrhea, nausea and vomiting. Genitourinary: Negative for difficulty urinating. Musculoskeletal: Positive for arthralgias, myalgias and neck pain. Negative for neck stiffness. Skin: Negative for rash. Neurological: Positive for dizziness (Not currently) and weakness (general in legs, swelling in lower extremities). Negative for tremors, seizures, syncope, speech difficulty, light-headedness, numbness and headaches. Hematological: Bruises/bleeds easily. Psychiatric/Behavioral: Positive for sleep disturbance. Negative for confusion. The patient is not nervous/anxious. Physical Exam: Vitals: Vitals: 05/11/23 1113 BP: 128/78 BP Site: Right Arm BP Postition: Sitting Pulse: 70 Weight: 116.7 kg (257 lb 4.8 oz) Height: 177.8 cm (5' 10 ) Neurological Physical Exam: Physical Exam: Mental Status: Orientation: Oriented. Level of consciousness: alert. Knowledge: good and consistent with education. Intact short-term memory and intact long-term memory. Vocabulary is normal. Memory: Appears normal. Attention span is normal. Concentration is normal. Speech: Normal quality and patient has normal vocabulary. Language: Normal. Cranial Nerves: CN II: Normal tracking, no evidence of visual field defect. Optic Discs: Attempted - difficult to view related to small pupils. CN III, IV, : CN III: PERRLA, EOM full and no nystagmus.Slight ptosis on left. CN V: Denies decrease in cold sensations on exam.. CN VII: Facial expression fully symmetric. Normal expression without sporadic facial muscle spasms upper cheek and periorbital.. CN VIII: CN VIII normal. Intact to finger rubbing on right and left. CN IX, X: CN IX and X normal. CN XI: CN XI normal. Right sternocleidomastoid strength normal. Left sternocleidomastoid strength normal. Right trapezius strength normal. Left trapezius strength normal. CN XII: Tongue protrudes midline. Motor: Muscle Bulk: Normal. Decrease bulk posterior right hand between thumb and 1st finger.. Muscle Tone: Normal. Right upper extremity muscle tone normal.Left upper extremity muscle tone normal.Right lower extremity muscle tone normal.Left lower extremity muscle tone normal. Power: Pronator drift: None. Bradykinesia: None. Muscle Strength: Right shoulder abductors: 5/5 Left shoulder abductors: 5/5 Right elbow flexors: 5/5 Left elbow flexors: 5/5 Right elbow extensors: 5/5 Left elbow extensors: 5/5 Right wrist flexors: 5 Left wrist flexors: 5 Right wrist extensors: 5/5 Left wrist extensors: 5/5 Right hip flexors: 5/5 Left hip flexors: 5/5 Right knee extensors: 4/5 Left knee extensors: 4/5 Right knee flexors: 4/5 Left knee flexors: 4/5 Right foot dorsiflexors: 4/5 Left foot dorsiflexors: 4/5 Right foot plantar flexors: 4/5 Left foot plantar flexors: 4/5 Right thumb flexors: Weak Left thumb flexors: Strong Right thumb extensors: Weak Left thumb extensors: Strong Right tipple supervisor strength: Strong Left tipple supervisor strength: Strong Right upper extremity strength 5/5 Left upper extremity strength 5/5 Right lower extremity strength 4/5 Left lower extremity strength 4/5 Comments (left): Decrease strength thumb and 1st finger on right hand 4/5 Fasciculations: No Myotonia: No myotonia. Sensory: Light touch normal in upper and lower extremities. Sensation: Prior exam revealed Decreased pinprick and temperature on right leg since 11/2014 stroke and on left leg (chronic). . Gait/Coord/DTR: Gait: Antalgic stooped posture due to chronic back pain. No leaning. Using walker on wheels to assist with ambulation.. Coordination: Normal. Balance is poor (stooped posture due to chronic back pain). Finger to nose normal on right. Finger to nose normal on left. Tremor: Absent. Negative findings: no past pointing right, no past pointing left, no intention tremor right, no intention tremor left, no resting tremor right, no resting tremor on left, no pill rolling tremor on right, no pill rolling tremor on left and no right head resting tremor. No postural tremor. Involuntary Movements: no abnormal movement. Myoclonus: None. Reflexes: Right brachioradialis 2+ Left brachioradialis 2+ Right biceps 2+ Left biceps 2+ Right patellar 2+ Left patellar 2+ Right achilles reflex grade: ankle swelling. Left achilles reflex grade: ankle swelling. Right tipple supervisor 2+ Left tipple supervisor 2+ Right plantar reflex: Strong plantar and dorsi flexions bilateral. Right ankle clonus absent and left ankle clonus absent. General Exam: Constitutional: Well-developed, well-nourished and overweight . Assistive devices: Walker on wheels with seat.. Eyes: Normal appearance, no icterus. Neck: Normal appearance, normal range of motion and Nicely healed surgical incision posterior neck.. Cardiovascular: Normal rate, regular rhythm, right edema, left edema and Bilateral ankle swelling. Cardiovascular: no murmur, no right carotid bruit and no left carotid bruit. Vascular: Abnormal Lower Extremity Right lower extremity edema: non-pitting Edema location: Ankle swelling Left lower extremity edema: non-pitting Edema location: Ankle swelling Skin: Warm and dryNicely healed scar right anterior wrist s/p steel plate implanted r/t fractured wrist in the past (per patient report). Redness bilateral pretibial (R>L). . Psychiatric: Normal mood/affect, good eye contact, behaving normally and normal thought content. Musculoskeletal: Tenderness: Slight tenderness bitemple, bifrontal, bioccipitals, cervical paraspinal muscles, upper trapezii..Pulmonary: Effort: Pulmonary effort is normal. Abdominal: Comments: Pain pump device implanted left lower abdomen. Assessment and Plan: Kylie was seen today for follow-up. 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) Problem List Cardiovascular and Mediastinum Cerebrovascular accident (CVA) ([facility]) (Chronic) Nervous and Auditory Hemifacial spasm (Chronic) Overview Right sided Mixed headache - Primary Blepharospasm of right eye Other Late effects of cerebrovascular disease ASSESSMENT: Kylie Rueda has worsening in headache with increase in frequency to everyday occurrence, with severe exacerbating pain on a few days in a month. Headache character unchanged, location changed from previous headaches re: onset starts back of neck then radiates upward to back of head to forehead. I think he is at risk for medication overuse headache related to daily use of Tylenol for acute treatment. Blepharospasm significantly improved since receiving quarterly Botox therapy, and no facial spasm observed. He has not experienced shaking or weakness in upper extremities. Hospitalized earlier this year for altered mental changes, evaluated for stroke, diagnosed syncope. Followed by cardiology. Exam positive for mild ptosis on left, slight tenderness head, neck, and shoulders. Improved right hand tipple supervisor compared to my last examination in 2021, chronic weakness in lower extremities without local weakness, numbness, or tingling. Swelling in lower legs especially ankles. Reports diagnosed with cellulitis pretibial regions (R>L). I personally reviewed with patient laboratory, radiographic, and medical studies which were pertinent for today's visit. I discussed and he agrees to the following: Continue pain management with Dr. Polk Continue current medications prescribed by other providers. Stroke: Continue Aspirin, Plavix Right hemifacial Spasm, Blepharospasm: - Continue quarterly botox therapy Mixed Headache -Continue Carbamazepine 400 mg twice daily - Botox injections administered on 05/11/2023 splenius capitis, temporalis, frontalis by Ritika Diggs MD/Jean Salazar MD Follow up: [address] Michel Total time spent was 39 minutes: Preparing to see the patient (e.g., review of tests) Obtaining and/or reviewing separately obtained history Performing a medically appropriate examination and/or evaluation Counseling and educating the patient/family/caregiver Ordering medications, tests, or procedures Referring and communicating with other health care rep (not separately reported) Documenting clinical information in the electronic or other health record NIURKA WOODRUFF APRN-CRNP 05/13/23 1429 documented in this encounter [facility] [employer] 05-11-2023 Instructions NIURKA Woodruff - 05/11/2023 11:30 AM EDT Continue current treatment regimen. Consider to try botox therapy for headache prevention. documented in this encounter [facility] 05-03-2023 History of Present illness Narrative Reason for Visit: Kylie Rueda is a 72 y.o. male who is being seen today in consultation at the request of Jenny Cast MD for evaluation of an adrenal pathology. History of Present Illness: Having recurrent presyncopal events with occpassing out episodes. Follow up with neurology and cardiology. Had holter monitoring - waiting for results. Denies any unexplained abd pain / nausea / vomiting / weight loss. Reports episodes with palpitations/shaking/sweating/flus jame - couple of times a week. Did not check blood sugars or BP during these episodes. Had neck and back surgeries in the past. Past Medical History: Diagnosis Date Anxiety Arthritis Asthma Benign prostate hyperplasia Cataract CHF (congestive heart failure) ([facility]) Chronic constipation Chronic pain syndrome COPD (chronic obstructive pulmonary disease) ([facility]) Dental disease upper and lower Depression Diastolic dysfunction Disc disorder of lumbar region GERD (gastroesophageal reflux disease) HL (hearing loss) left HLD (hyperlipidemia) HTN (hypertension) Low back pain Multiple lung nodules Obesity Orthostatic hypotension Peptic ulceration Pneumonia Pulmonary hypertension ([facility]) SOB (shortness of breath) Stroke ([facility]) 2014 Syncope and collapse TIA (transient ischemic attack) 02/08/2022 Visual impairment Glasses Past Surgical History: Procedure Laterality Date Cardiac catheterization 09/20/2019 Performed by Royer Lazar MD at [facility] CARDIAC CATH LABS COLONOSCOPY N/A 11/05/2016 Performed by Cole Ny MD at [facility] Coronary angiogram and right heart and left ventricular gram/pressure N/A 09/20/2019 Performed by Royer Lazar MD at [facility] CARDIAC CATH LABS FORAMINOTOMY C5-6 Left 03/24/2022 Performed by Reid Whatley MD at [facility] PAIN PUMP SURGERY 12/03/2019 POSTERIOR LAMINECTOMY FUSION CERVICAL MULTI LEVEL/C3-C6 N/A 03/24/2022 Performed by Reid Whatley MD at [facility] TIBIA FRACTURE SURGERY Current Outpatient Medications: acetaminophen (TYLENOL) 500 mg tablet, Take 1 tablet (500 mg total) by mouth every 4 (four) hours as needed Indications: backache., Disp: , Rfl: aspirin 81 mg, Take 1 tablet (81 mg total) by mouth in the morning., Disp: , Rfl: atorvastatin (LIPITOR) 40 mg tablet, Take 1 tablet (40 mg total) by mouth in the morning., Disp: , Rfl: baclofen (LIORESAL) 10 mg tablet, Take 1 tablet (10 mg total) by mouth 3 (three) times a day as needed Indications: muscle spasms caused by a spinal disease., Disp: , Rfl: carBAMazepine XR (TEGretol XR) 400 mg 12 hr tablet, take 1 tablet by mouth twice a day, Disp: 180 tablet, Rfl: 1 CEPHalexin (KEFLEX) 500 mg capsule, Take 1 capsule (500 mg total) by mouth 3 (three) times a day., Disp: , Rfl: clopidogreL (PLAVIX) 75 mg tablet, Take 1 tablet (75 mg total) by mouth in the morning., Disp: 30 tablet, Rfl: 11 diazePAM (VALIUM) 5 mg tablet, Take 1 tablet (5 mg total) by mouth 4 (four) times a day as needed., Disp: , Rfl: DULoxetine (CYMBALTA) 30 mg capsule, Take 2 capsules (60 mg total) by mouth in the morning., Disp: , Rfl: fluticasone propionate (FLONASE) 50 mcg/actuation nasal spray, Administer 1 spray into each nostril in the morning., Disp: , Rfl: furosemide (LASIX) 40 mg tablet, Take 1 tablet (40 mg total) by mouth daily as needed., Disp: , Rfl: HYDROMORPHONE HCL/PF (DILAUDID, PF, INJ), by continuous epidural route., Disp: , Rfl: levalbuterol (XOPENEX HFA) 45 mcg/actuation inhaler, inhale 2 puffs by mouth and INTO THE LUNGS every 4 hours if needed for shortness of breath, Disp: , Rfl: lisinopriL (PRINIVIL,ZESTRIL) 5 mg tablet, Take 1 tablet (5 mg total) by mouth in the morning. (Patient taking differently: Take 2 tablets (10 mg total) by mouth in the morning.), Disp: 90 tablet, Rfl: 02 loratadine (CLARITIN) 10 mg tablet, Take 1 tablet (10 mg total) by mouth in the morning., Disp: , Rfl: 0 montelukast (SINGULAIR) 10 mg tablet, Take 1 tablet (10 mg total) by mouth nightly., Disp: 30 tablet, Rfl: 10 omeprazole (PriLOSEC) 40 mg capsule, Take 1 capsule (40 mg total) by mouth as needed., Disp: , Rfl: 0 oxyCODONE (ROXICODONE) 5 mg immediate release tablet, Take 1 tablet (5 mg total) by mouth every 8 (eight) hours as needed., Disp: , Rfl: pregabalin (LYRICA) 100 mg capsule, Take 1 capsule (100 mg total) by mouth in the morning and 1 capsule (100 mg total) before bedtime., Disp: , Rfl: STIOLTO RESPIMAT 2.5-2.5 mcg/actuation mist, Inhale 2 puffs in the morning., Disp: , Rfl: terazosin (HYTRIN) 2 mg capsule, Take 1 capsule (2 mg total) by mouth nightly Indications: enlarged prostate with urination problem., Disp: , Rfl: 0 verapamil SR (CALAN-SR) 240 mg CR tablet, Take 1 tablet (240 mg total) by mouth nightly., Disp: , Rfl: Allergies Allergen Reactions Iodinated Contrast Media Anaphylaxis Sulfa (Sulfonamide Antibiotics) Family History Problem Relation Age of Onset Memory loss Mother No Known Problems Father Lung cancer Sister Rheum arthritis Sister Stomach cancer Maternal Grandfather Anesthesia problems Neg Hx Bleeding Disorder Neg Hx Clotting disorder Neg Hx Diabetes Neg Hx Prostate cancer Neg Hx Colon cancer Neg Hx Heart attack Neg Hx Stroke Neg Hx Social History: reports that he quit smoking about 16 years ago. His smoking use included cigarettes. He has a 40 pack-year smoking history. He has never used smokeless tobacco. He reports that he does not currently use drugs after having used the following drugs: Marijuana. He reports that he does not drink alcohol. Review of Systems: 12 systems were reviewed and were negative except for what has been mentioned above. Physical Exam: Vitals: 05/03/23 1425 BP: 132/79 Pulse: 79 Weight: 115.7 kg (255 lb 1.6 oz) Body mass index is 36.6 kg/m . General appearance: Awake alert and oriented in no acute distress, does not appear cushingoid, does not appear Acromegaloid. HEENT: Normocephalic, atraumatic. SKIN: No acanthosis nigricans noted on neck HAIR: Normal facial hair growth, no hirsuitism. EYES: No exopthalmos present, extraocular movement intact (EOMI), no lid retraction noted, no chemosis. MOUTH/JAW: No lip enlargement, No widening of teeth spaces. NECK: Thyroid is normal in size. CHEST: No nasal flaring, no cough. ACROMEGALIC EXTREMITY FEATURES: Are not present. EXTREMITIES: No edema. NEUROLOGIC: Alert and oriented. Labs: Latest Reference Range & Units 07/28/21 13:02 03/15/23 22:47 03/19/23 15:19 03/21/23 07:21 Hemoglobin A1C Confirmation 4.4 - 6.4 % 5.8 TSH 0.49 - 4.67 uIU/mL 0.88 T4, free 0.61 - 1.60 ng/dL 0.40 (L) Cortisol, Plasma ug/dL 6.6 17.0 DHEA-SO4 5 - 253 ug/dL 25 Imaging: CT abdomen from March 2017 did not show any evidence of abnormal pathology Assessment/Plan: Kylie Rueda presents today for evaluation of an adrenal evaluation. 1. Adrenal disorder ([facility]) - given his symptoms will screen for adrenal pathology. - discussed about adrenal insufficiency, pheochromocytoma - pathophysiology and management options were briefly discussed - also recommended pt to check BP and Blood sugars during these episodes - Metanephrines, Fract Free; Future - Cortisol; Future - ACTH; Future - Comprehensive metabolic panel; Future - Renin Activity; Future - Aldosterone Note: Restrict Location; Future - DHEA-sulfate; Future Return to clinic: -3 months Rosa Maria Rome MD [facility] [address] [facility] [address] [facility] [id number] Dept: [phone] FAX: [phone] documented in this encounter [facility] 05-03-2023 Instructions Rosa Maria Rome MD - 05/03/2023 2:00 PM EDT Do labs 8 am and fating Since Plasma Metanephrines are easily elevated by physical and emotional stimuli, the following patient preparation is required: 1. An overnight fast prior to specimen collection. 2. You will need to stop taking epinephrine and epinephrine-like drugs at least one week before having your test done. 3. Do not take acetaminophen for 48 hours before the specimen is drawn. 4. Do not use or drink caffeine, coffee, tea, chocolate, or alcoholic beverages or consume medications and tobacco for at least four hours before the specimen is drawn documented in this encounter [facility] 05-02-2023 Miscellaneous Notes This patient has not been seen in a while and recently had a hospitalization; I recommend a follow-up w/ either myself or Nehemias Coburn next available. Kaykay Michel MD documented in this encounter [facility] 05-02-2023 Telephone encounter Note This patient has not been seen in a while and recently had a hospitalization; I recommend a follow-up w/ either myself or Nehemias Coburn next available. Kaykay Michel MD [facility] [employer] [facility] 04-15-2023 History of Present illness Narrative Kylie Rueda Date of visit: 04/15/2023 Date of : 1950 Age: 72 y.o. Patient Active Problem List Diagnosis History of tobacco use Chronic obstructive pulmonary disease ([facility]) Cerebrovascular accident (CVA) ([facility]) Dysarthria Mixed anxiety depressive disorder HLD (hyperlipidemia) HTN (hypertension) Orthostatic hypotension History of transient cerebral ischemia Shortness of breath Tachycardia Chronic bilateral low back pain Neuralgia Late effects of cerebrovascular disease Lumbosacral radiculopathy Mixed headache Depressive disorder Anxiety Vision disturbance Myoclonus Preoperative evaluation to rule out surgical contraindication Hemifacial spasm Blepharospasm TIA (transient ischemic attack) Allergic rhinitis Dysphagia Blepharospasm of right eye Severe obesity (BMI 35.0-39.9) with comorbidity ([facility]) Obesity (BMI 30-39.9) Heart failure with preserved left ventricular function (HFpEF) ([facility]) Decreased pinch strength Shaking Degenerative cervical spinal stenosis Other spondylosis with myelopathy, cervical region Encephalopathy Allergies Allergen Reactions Iodinated Contrast Media Anaphylaxis Sulfa (Sulfonamide Antibiotics) Current Outpatient Medications Medication Sig Dispense Refill acetaminophen (TYLENOL) 500 mg tablet Take 1 tablet (500 mg total) by mouth every 4 (four) hours as needed Indications: backache. aspirin 81 mg Take 1 tablet (81 mg total) by mouth in the morning. atorvastatin (LIPITOR) 40 mg tablet Take 1 tablet (40 mg total) by mouth in the morning. baclofen (LIORESAL) 10 mg tablet Take 1 tablet (10 mg total) by mouth 3 (three) times a day as needed Indications: muscle spasms caused by a spinal disease. carBAMazepine XR (TEGretol XR) 400 mg 12 hr tablet take 1 tablet by mouth twice a day 180 tablet 0 CEPHalexin (KEFLEX) 500 mg capsule Take 1 capsule (500 mg total) by mouth 3 (three) times a day. clopidogreL (PLAVIX) 75 mg tablet Take 1 tablet (75 mg total) by mouth in the morning. 30 tablet 11 diazePAM (VALIUM) 5 mg tablet Take 1 tablet (5 mg total) by mouth 4 (four) times a day as needed. DULoxetine (CYMBALTA) 30 mg capsule Take 2 capsules (60 mg total) by mouth in the morning. fluticasone propionate (FLONASE) 50 mcg/actuation nasal spray Administer 1 spray into each nostril in the morning. furosemide (LASIX) 40 mg tablet Take 1 tablet (40 mg total) by mouth daily as needed. HYDROMORPHONE HCL/PF (DILAUDID, PF, INJ) by continuous epidural route. levalbuterol (XOPENEX HFA) 45 mcg/actuation inhaler inhale 2 puffs by mouth and INTO THE LUNGS every 4 hours if needed for shortness of breath lisinopriL (PRINIVIL,ZESTRIL) 5 mg tablet Take 1 tablet (5 mg total) by mouth in the morning. (Patient taking differently: Take 2 tablets (10 mg total) by mouth in the morning.) 90 tablet 02 loratadine (CLARITIN) 10 mg tablet Take 1 tablet (10 mg total) by mouth in the morning. 0 montelukast (SINGULAIR) 10 mg tablet Take 1 tablet (10 mg total) by mouth nightly. 30 tablet 10 omeprazole (PriLOSEC) 40 mg capsule Take 1 capsule (40 mg total) by mouth as needed. 0 oxyCODONE (ROXICODONE) 5 mg immediate release tablet Take 1 tablet (5 mg total) by mouth every 8 (eight) hours as needed. pregabalin (LYRICA) 100 mg capsule Take 1 capsule (100 mg total) by mouth in the morning and 1 capsule (100 mg total) before bedtime. STIOLTO RESPIMAT 2.5-2.5 mcg/actuation mist Inhale 2 puffs in the morning. terazosin (HYTRIN) 2 mg capsule Take 1 capsule (2 mg total) by mouth nightly Indications: enlarged prostate with urination problem. 0 verapamil SR (CALAN-SR) 240 mg CR tablet Take 1 tablet (240 mg total) by mouth nightly. No current facility-administered medications for this visit. Chief Complaint Patient presents with Follow-up EST PT F/U SYNCOPE SCHED W/ PT History of Present Illness Kylie is here after being admitted to [facility] with an episode of transient loss of consciousness. Recnetly admitted to [facility] for episode of confusion, decreased level of consciousness, followed by generalized weakness and apathy. According to patient's , patient was doing well till Tuesday. Was in his wheelchair, then he fell down and hit his head on the floor, the event was not witnessed. The patient felt he may have blacked out. Patient tried to get up however he felt weak and he fell down again. Subsequent Tuesday,, the patient was found to be unresponsive, he was taken to [facility] with persistent altered mental status for some time. He underwent a detailed evaluation by Neurology and was evaluated by our director group sales at [facility]. He had no arrhythmias while there. Did have some transient low blood pressures but also had dizziness that correlated with being normotensive. His symptoms were not postural. He is now ambulating around. He has some rare dizziness that has not associated with being supine. No palpitations. He is some mild chronic shortness of breath that has not changed. No orthopnea. No PND. He lives in assisted living. Past Medical History: Diagnosis Date Anxiety Arthritis Asthma Benign prostate hyperplasia Cataract CHF (congestive heart failure) ([facility]) Chronic constipation Chronic pain syndrome COPD (chronic obstructive pulmonary disease) ([facility]) Dental disease upper and lower Depression Diastolic dysfunction Disc disorder of lumbar region GERD (gastroesophageal reflux disease) HL (hearing loss) left HLD (hyperlipidemia) HTN (hypertension) Low back pain Multiple lung nodules Obesity Orthostatic hypotension Peptic ulceration Pneumonia Pulmonary hypertension ([facility]) SOB (shortness of breath) Stroke ([facility]) 2014 Syncope and collapse TIA (transient ischemic attack) 02/08/2022 Visual impairment Glasses No data recorded No data recorded No data recorded Past Surgical History: Procedure Laterality Date Cardiac catheterization 09/20/2019 Performed by Royer Lazar MD at [facility] C[facility] CATH LABS COLONOSCOPY N/A 11/05/2016 Performed by Cole Ny MD at [facility] Coronary angiogram and right heart and left ventricular gram/pressure N/A 09/20/2019 Performed by Royer Lazar MD at [facility] CARDI[facility] CATH LABS FORAMINOTOMY C5-6 Left 03/24/2022 Performed by Reid Whatley MD at [facility] PAIN PUMP SURGERY 12/03/2019 POSTERIOR LAMINECTOMY FUSION CERVICAL MULTI LEVEL/C3-C6 N/A 03/24/2022 Performed by Reid Whatley MD at [facility] TIBIA FRACTURE SURGERY Family History Problem Relation Age of Onset Memory loss Mother No Known Problems Father Lung cancer Sister Rheum arthritis Sister Stomach cancer Maternal Grandfather Anesthesia problems Neg Hx Bleeding Disorder Neg Hx Clotting disorder Neg Hx Diabetes Neg Hx Prostate cancer Neg Hx Colon cancer Neg Hx Heart attack Neg Hx Stroke Neg Hx Social History Socioeconomic History Marital status: Spouse name: Not on file Number of children: Not on file Years of education: Not on file Highest education level: Not on file Occupational History Not on file Tobacco Use Smoking status: Former Packs/day: 1.00 Years: 40.00 Additional pack years: 0.00 Total pack years: 40.00 Types: Cigarettes Quit date: 03/08/2007 Years since quittin.1 Smokeless tobacco: Never Vaping Use Vaping Use: Never used Substance and Sexual Activity Alcohol use: No Alcohol/week: 0.0 standard drinks of alcohol Drug use: Not Currently Types: Marijuana Sexual activity: Defer Other Topics Concern Caffeine Use Yes Social History Narrative Lives alone in a one story home with one step into the home. Walk in shower; has a tub as well. Has a walker and a shower chair. Has a dog. Social Determinants of Health Financial Resource Strain: Not on file Food Insecurity: No Food Insecurity (04/15/2023) Hunger Screening Food Insecurity - Worry: Never True Food Insecurity - Inability: Never True Transportation Needs: Not on file Physical Activity: Not on file Stress: Not on file Social Connections: Not on file Interpersonal Safety: Not on file Housing Instability: Not on file Review of Systems Review of Systems Constitutional: Positive for malaise/fatigue. HENT: Positive for hearing loss. Eyes: Positive for blurred vision. Cardiovascular: Positive for chest pain. Respiratory: Positive for shortness of breath and wheezing. Endocrine: Negative. Hematologic/Lymphatic: Bruises/bleeds easily. Skin: Positive for rash. Musculoskeletal: Positive for back pain, joint swelling and muscle weakness. Neurological: Positive for light-headedness, loss of balance and numbness. Psychiatric/Behavioral: Positive for depression. The patient is nervous/anxious. Vascular: Negative. CARDIOVASCULAR: Please review HPI. Physical Examination General appearance: Alert, oriented and cooperative. In no acute distress. Skin: Warm and dry to touch. Head: Normocephalic, without obvious abnormality, atraumatic. Ears, Nose, Mouth, Throat: Throat clear without erythema or exudate. Dentition intact. Eyes: Conjunctivae unremarkable, EOM intact. Neck: Neck supple, trachea midline. Respiratory: Clear to auscultation bilaterally, no use of accessory muscles. Cardiovascular: RRR with normal S1 and S2 with no murmurs. Gastrointestinal: Soft, non-tender. Bowel sounds normal. Musculoskeletal: No peripheral edema. Neurologic: Oriented to time, person and place, affect appropriate. No focal/major motor defects noted. Psychiatric: Appropriate mood, memory and judgement. VITAL SIGNS: BP 148/88 (BP Site: Left Arm, BP Postition: Sitting) Pulse 73 Ht 177.8 cm (5' 10 ) Wt 113.4 kg (250 lb) SpO2 98% BMI 35.87 kg/m Orders Placed or Reconciled This Encounter Medications aspirin 81 mg Sig: Take 1 tablet (81 mg total) by mouth in the morning. verapamil SR (CALAN-SR) 240 mg CR tablet Sig: Take 1 tablet (240 mg total) by mouth nightly. furosemide (LASIX) 40 mg tablet Sig: Take 1 tablet (40 mg total) by mouth daily as needed. CEPHalexin (KEFLEX) 500 mg capsule Sig: Take 1 capsule (500 mg total) by mouth 3 (three) times a day. Medications Discontinued During This Encounter Medication Reason verapamil SR (CALAN-SR) 180 mg CR tablet trimethoprim-polymyxin B (POLYTRIM) 10,000 unit- 1 mg/mL drops magnesium hydroxide (MILK OF MAGNESIA) 400 mg/5 mL suspension levalbuterol (XOPENEX) 0.63 mg/3 mL nebulizer solution albuterol (PROVENTIL,VENTOLIN) 2.5 mg /3 mL (0.083 %) nebulizer solution albuterol (PROVENTIL HFA;VENTOLIN HFA) 90 mcg/actuation inhaler IMPRESSIONS/PLAN 1. Syncope, unspecified syncope type - Ambulatory referral to Cardiology (Non-[facility]) - Wireless Telemetry (In Office); Future 2. Heart failure with preserved left ventricular function (HFpEF) ([facility]) 3. Hypertension, unspecified type 1. Chronic ALEXANDRA; Normal cors (RA 13 PA 46/23/33, W 21) 08/2019 was hypertensive day of cath 2. Normal LVEF no significant valve abnormalities 3. Mild HFpEF 4. Recent altered mental status, possible syncope 5. No overt chonotropic incompetence on remote Holter 6. History of TIA 7. Essential HTN 8. Dizziness, not associated with standing DNR CCA Currently at assisted living Loss of consciousness, doubt this was arrhythmic but event monitor was planned. I think we could do a 7 day wireless telemetry. Relatively low suspicion that any of these episodes or any of his symptoms are related to arrhythmias. I would recommend checking his blood pressure regularly if we can do that at the assisted living. It sounds like his blood pressure somewhat labile. He does not have orthostatic type symptoms however and gets a lot of dizziness just sitting around. Will start checking his blood pressure regularly and daily if possible for the next couple weeks at his nursing facility and get the monitor. TODAYS ORDERS Orders Placed This Encounter Procedures Wireless Telemetry (In Office) FOLLOW UP Return in about 4 months (around 08/15/2023). PCP: Jenny Cast MD Referring Physician: Cleveland Lindo MD [address] [place] [address] Images from the original note were not included. documented in this encounter [facility] 04-14-2023 Miscellaneous Notes Called patient to remind them to bring their most current copy of their medication list with them to their appt. Patient verbalizes understanding. documented in this encounter [facility] 04-14-2023 Telephone encounter Note Called patient to remind them to bring their most current copy of their medication list with them to their appt. Patient verbalizes understanding. [facility] 03-21-2023 Miscellaneous Notes ----- Message from Maxwell Milligan MD sent at 03/20/2023 5:17 PM EST ----- Follow-up 2-3 weeks. Patient needs 30 days event monitor after seeing him in office. No need to place order now. Telephone call to patient to schedule appt. No answer and no voicemail. documented in this encounter [facility] 03-21-2023 Telephone encounter Note ----- Message from Maxwell Milligan MD sent at 03/20/2023 5:17 PM EST ----- Follow-up 2-3 weeks. Patient needs 30 days event monitor after seeing him in office. No need to place order now. [facility] [employer] 03-21-2023 Telephone encounter Note Telephone call to patient to schedule appt. No answer and no voicemail. [facility] [employer] 08-18-2021 Hospital Discharge instructions Patient Education 08/18/2021 [...] urethra. Follow these instructions at home: Take gego-trz-atpquiq and prescription medicines only as told by [...] 01/31/2006 Document Revised: 12/26/2018 Document Reviewed: 03/07/2017 [employer] Patient Education 2020 [employer]. Follow Up Care 06/09/2021 11:49:23 With:Shawn Allen MD, Cintia Hernandez, URO Address: [facility] [address], [place] [address] [phone] When: Unknown [facility] 06-09-2021 Hospital Discharge instructions Patient Education 06/09/2021 [...] personal one. It is often based on buddhist, social, or cultural beliefs. Circumcision is most [...] 01/28/2001 Document Revised: 07/17/2018 Document Reviewed: 07/17/2018 [employer] Patient Education 2020 [employer]. Follow Up Care 06/03/2021 11:02:25 With:Shawn Allen MD, Cintia Hernandez, URO Address: [facility] [address], [place] [address]- When:08/09/2021 [facility] 05-17-[address] CHEST WO CON CLINICAL: [...] authenticated by: JESSA FISHMAN Date: 2021-05-17 09:46 [facility] 05-01-2021 Note [id number]:127 [facility] 04-06-2021 Note [id number]:127 [facility] 04-02-2021 Note Cystoscopy ? Voiding after the [...] you have a fever over 100 degrees. [facility] Evaluation + Plan note Future Appointments Appointment Date:05/21/2021 11:00:00 AM Scheduled Provider: Location:[facility] Appointment Type:Surgery FT [facility] Evaluation + Plan note Future Appointments Appointment Date:08/18/2021 10:15:00 AM Scheduled Provider:Shawn Allen MD, Cintia Hernandez Location:[facility] Appointment Type:URO Office Visit [facility] Evaluation + Plan note Future Appointments Appointment Date:08/24/2022 10:45:00 AM Scheduled Provider:Cintia Alves Jr., MD Location:[facility] Appointment Type:URO Office Visit Diagnostic Tests PendingPSA Total 08/18/21 [facility] Evaluation + Plan note Future Appointments Appointment Date:08/24/2022 10:45:00 AM Scheduled Provider:Cintia Alves Jr., MD Location:[facility] Appointment Type:URO Office Visit [facility] Evaluation note Diagnosis Heart failure with preserved left ventricular function (HFpEF) ([facility] Primary Syncope, unspecified syncope type Hypertension, unspecified type [facility] Adrenal disorder ([facility]) Unspecified disorder of adrenal glands [facility] Diagnosis Mixed headache- Primary 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 Cerebrovascular accident (CVA) due to occlusion of left middle cerebral artery ([facility]) [facility] N[facility] No data available for this section [facility] No data available for this section [facility] filedocumented in this encounter [facility] filedocumented in this encounter [facility] filedocumented in this encounter [facility] filedocumented in this encounter [facility] No data available for this section [facility] Summary Purpose Family History No Family History [...] Inactivated Comments Full Code 12/03/2019 9:56 AM Documents on File Type Date Recorded Patient Roof Bolting [employer] Expl anation Durable Power of Batch Records Clerk 03/24/2022 8:18 AM [email or web address] Latest Code Status on File Code Status Date Activated Date Inactivated Comments DNR Comfort Care Arrest (DNR-CCA) [place] 03/15/2023 8:58 PM 03/21/2023 1:26 PM Code Status History Code Status Date Activated Date Inactivated Comments Full Code 03/15/2023 7:55 PM 03/15/2023 8:58 PM Full Code 03/24/2022 3:51 PM 03/27/2022 8:48 PM Documents on File Type Date Recorded Patient Roof Bolting [employer] Expl anation DNR Physician Order 04/12/2023 3:13 PM Durable Power of Batch Records Clerk 03/24/2022 8:18 AM [email or web address] Documents on File Type Date Recorded Patient Roof Bolting [employer] Expl anation DNR Physician Order 04/12/2023 3:13 PM Durable Power of Batch Records Clerk 03/24/2022 8:18 AM [email or web address] Latest Code Status on File Code Status Date Activated Date Inactivated Comments DNR Comfort Care Arrest (DNR-CCA) [place] 03/15/2023 8:58 PM 03/21/2023 1:26 PM Code Status History Code Status Date Activated Date Inactivated Comments Full Code 03/15/2023 7:55 PM 03/15/2023 8:58 PM Full Code 03/24/2022 3:51 PM 03/27/2022 8:48 PM Hospital Course * Jennifer Nava MD - 12/04/2019 1:44 PM EDT [facility] Office: [phone] Segun Andino DO, Edvin Park DO, Durga [...] Shanks MD, Jorge Sauceda MD, Gina Gross COLLATERAL ANALYST, Vale Hazel COLLATERAL ANALYST, Susy Villalta COLLATERAL ANALYST, Marily Wade MARINE DIESEL TECHNICIAN, Ayo Mcnair COLLATERAL ANALYST, Joselito COLLATERAL ANALYST, Lulú Campa COLLATERAL ANALYST, Ruthie Lizarraga COLLATERAL ANALYST, Boy Craven COLLATERAL ANALYST, Paul Estrada PA-C, Florence Ni COLLATERAL ANALYST, Lyssa Rich COLLATERAL ANALYST, Lali Burciaga COLLATERAL ANALYST, Narcisa Benitez COLLATERAL ANALYST, Vanessa Isabel COLLATERAL ANALYST, Reema Quintana COLLATERAL ANALYST [facility] Discharge Summary Patient ID: Kylie Rueda : 1950 ACCOUNT: [id number] Patient Location : Patient's PCP: Jenny Cast [...] Condition: stable Hospital Stay: Hospital Course: Kylie Ruead is a 69 y.o. male who was [...] Home Physician Follow Up: Boy Polk MD [address] [facility] [address] [place] [id number] Go on 12/10/2019 Appointment 12-10-19 at 1:45pm Jenny Cast [address] [facility] [address] In 1 week Requiring Further Evaluation/Follow Up [...] Everywhere. * Acute Pain Management: General Info (Panamanian) * Surgery Post-op: General Info (Panamanian) documented in this encounter History of Present Illness * Sammie Appiah RN - 12/04/2019 2:02 PM EDT Pt discharged to home per wc with dgt. No scripts at this time. Pt to f/u with dr polk if pain continues or worsens on 12/04 * Jennifer Nava MD - 12/04/2019 8:04 AM EDT [facility] Office: [phone] Segun Andino DO, Edvin Park DO, Durga White DO, Yoan Kamara DO, Anjelica Cornelius MD, Luda Rm MD, Jennifer Nvaa MD, Jess Pollard MD, Mikal Stevens MD, Aria Fowler MD, MD [place], Valente Dawn MD, Chey Aceves MD, Yobany Zazueta DO, Jac Curiel MD, Ramo Gee MD, Gerardo Gates DO, Smita May MD, Carlos Early DO, Pietro Shanks MD, MD Christian, Gina Gross CNP, Vale Hazel CNP, Susy Villalta, COLLATERAL ANALYST, Marily Wade, MARINE DIESEL TECHNICIAN,Ayo Mcnair, COLLATERAL ANALYST, Claribel Salmon, COLLATERAL ANALYST, Lulú Campa, COLLATERAL ANALYST, Ruthie Lizarraga CNP, Boy Craven CNP, Paul Estrada PA-C, Florence Ni DNP, Lyssa Rich COLLATERAL ANALYST, Lali Burciaga, COLLATERAL ANALYST, Narcisa Benitez, COLLATERAL ANALYST, Vanessa Isabel COLLATERAL ANALYST, Reema Quintana, COOPER [facility] Daily Progress Note Admit Date: 12/03/2019 [...] TIA x 1) CHF (congestive heart failure) ([facility]) Chronic back pain COPD (chronic obstructive pulmonary disease) ([facility]) History of cardiac cath 09/21/2019 normal coronary arteries, normal left ventricular systolic function History of palpitations Hypertension Mild pulmonary hypertension ([facility]) per cardiac catheterization from 09/2019. Shortness of [...] No results for input(s): PROT, LABALBU, LABA1C, L3EPMNJ, E9FWDVW, FT4, TSH, AST, ALT, LDH, GGT, ALKPHOS, BILITOT, BILIDIR, AMMONIA, AMYLASE, LIPASE, LACTATE, CHOL, HDL, LDLCHOLESTEROL, CHOLHDLRATIO, TRIG, VLDL, BNP, TROPONINI, CKTOTAL, CKMB, CKMBINDEX, RF, WICHO in the last 72 hours. Specific [place], UA Date Value Ref Range Status 11/19/2019 [...] AM EDT No C/O Mild sweating Pain 5-6/10 S/P intrathecal pump replacement No headache No [...] classified Post-op pain Other acute postoperative pain Reason for Referral Specialty Diagnoses / Procedures Referred By Contac t Referred To Contact Diagnoses Syncope, unspecified syncope type Procedures Wireless Telemetry (In Office) Soumya Marie MD [address] [place] [address] Referral ID Status Reason Start Date Expiration Date V isits Requested Visits Authorized [id number] Pending Review 04/15/2023 04/14/2024 1 1 Additional Source Comments (unrecognized sect ion and content) No Status Records FoundNo Status Records FoundNo Status Records FoundNo Status Records FoundNo Status Records FoundNo Status Records FoundNo Status Records FoundNo Status Records Found INFORMATION SOURCE (unrecogn ized section and content) DATE CREATED AUTHOR 03/28/2018 [facility] DATE CREATED AUTHOR AUTHOR'S ORGANIZ ATION 04/12/2021 [facility] DATE CREATED AUTHOR AUTHOR'S ORGANIZ ATION 12/10/2021 Heredia Teller [facility] DATE CREATED AUTHOR AUTHOR'S ORGANIZ ATION 05/05/2022 [facility] DATE CREATED AUTHOR AUTHOR'S ORGANIZ ATION 09/30/2022 [facility] DATE CREATED AUTHOR AUTHOR'S ORGANIZ ATION 05/12/2023 [facility] DATE CREATED AUTHOR AUTHOR'S ORGANIZ ATION 06/13/2023 [facility] DATE CREATED AUTHOR AUTHOR'S ORGANIZ ATION 06/17/2023 [facility] Reason for Visit (unrecogniz ed section and content) Status Reason Specialty Diagnoses / Procedures Referre d By Contact Referred To Contact Diagnoses Lumbar radiculopathy DX LUMBAR RADICULOPATHY Procedures [place] NJX DX/THER SBST INTRLMNR CRV/THRC W/IMG GDN INSERT/ REPLACE INFUSN PUMP,PROGRAMMABLE INTRATHECAL PUMP REPLACEMENT AND CATHETER REVISION Boy Polk MD [address] [place] [address] [facility] Reason Onset Date Comments Hospital Follow-up 03/21/2023 Reason Comments Follow-up EST PT F/U SYNCOPE S CHED W/ PT Specialty Diagnoses / Procedures Referred By Contac t Referred To Contact Cardiology Diagnoses Syncope, unspecified syncope type Cleveland Lindo MD [address] [place] [address] Mike Amato MD [address] [place] [address] Referral ID Status Reason Start Date Expiration Date Visits Requested Visits Authorized [id number] Pending Review Specialty Services Required 03/21/2023 03/20/2024 1 1 Reason Comments Med Refill Reason Comments New Patient Specialty Diagnoses / Procedures Referred By Frederick baker Referred To Contact Endocrinology Diagnoses Syncope, unspecified syncope type Cleveland Lindo MD [address] [place] [address] [facility] [address] [address] Referral ID Status Reason Start Date Expiration Date Visits Requested Visits Authorized [id number] Pending Review Specialty Services Required 03/21/2023 03/20/2024 1 1 Reason Comments Follow-up Chief complaint head ache. Care Team (unrecognized sect ion and content) Reconciliation Analyst Relationship Specialty Start Date End Date Jenny Cast MD [address] [place] [address] PCP - General Family Medicine 03/15/16 Reconciliation Analyst Relationship Specialty Start Date End Date Jenny Cast MD [address] [place] [address] PCP - General Family Medicine 03/15/16 Reconciliation Analyst Relationship Specialty Start Date End Date Jenny Cast MD [address] [place] [address] PCP - General Family Medicine 03/15/16 Reconciliation Analyst Relationship Specialty Start Date End Date Jenny Cast MD [address] [place] [address] PCP - General Family Medicine 03/15/16 Reconciliation Analyst Relationship Specialty Start Date End Date Jenny Cast MD [address] [place] [address] PCP - General Family Medicine 03/15/16 Reconciliation Analyst Relationship Specialty Start Date End Date Jenny Cast MD [address] [place] [phone] PCP - General Family Medicine 03/15/16 FOR RECORDS PERTAINING TO PATIENTS WHO ARE [...] BE BASED ON THE PRIMARY CLINICAL RECORDS. [facility]. provides no warranty or guarantee of the accuracy or completeness of information in this document.
--- NOTE | 2023-06-17 20:34 | ECG_ITS ---
[facility] Test Date: 2023-06-17 Pat Name: KYLIE RUEDA Department: Room: - Gender: Male Coat Joiner: : 1950 Requested By: [id number] Order Number: [id number] Reading MD: HAYDER HOUSTON Measurements Intervals [place] Rate: 80 P: 64 TN: 196 QRS: 8 QRSD: 96 T: 67 QT: 364 QTc: 400 Interpretive Statements 1100 Sinus rhythm 9110 normal ECG Compared to ECG 03/14/2023 09:30:15 No significant changes Electronically Signed On 06-19-2023 10:49:14 EDT by HAYDER HOUSTON
--- NOTE | 2023-06-17 20:36 | ED_ITS ---
HPI HPI - General Adult General Chief complaint: Weakness Stated complaint: LACK OF CARE, RECENT SURGERY Time Seen by Provider: 06/17/23 19:59 Source: patient Mode of arrival: Wheelchair Limitations: no limitations History of Present Illness HPI narrative: 72-year-old male presents to the emergency department because he does not feel he is getting appropriate care at the [place] [facility] is. 5 days ago he had left hip replacement and he went back to the [place] [facility] last night. He states they are not giving him pain medication and they are not changing his dressing and he wet the bed and they did not change the sheets. He is unhappy that they are so he came here to seek further care. He has no new symptoms such as fever or a fall. Related Data Home Medications ?Medication ?Instructions ?Recorded ?Confirmed albuterol sulfate 90 mcg/actuation 1 inh inhalation Q4H PRN shortness 08/19/22 03/14/23 aerosol inhaler of breath or wheezing atorvastatin 40 mg tablet 40 mg PO DAILY 08/19/22 03/14/23 baclofen 10 mg tablet 10 mg PO TID 08/19/22 03/14/23 carbamazepine 400 mg 400 mg PO Q12H 08/19/22 03/14/23 tablet,extended release,12 hr clopidogrel 75 mg tablet 75 mg PO DAILY 08/19/22 03/14/23 diazepam 5 mg tablet 5 mg PO Q6H anxiety 08/19/22 03/14/23 duloxetine 60 mg capsule,delayed 60 mg PO DAILY 08/19/22 03/14/23 release fluticasone propionate 50 1 spray intranasal DAILY 08/19/22 03/14/23 mcg/actuation nasal spray,suspension levalbuterol tartrate 45 2 puff inhalation Q6H 08/19/22 03/14/23 mcg/actuation aerosol inhaler lisinopril 10 mg tablet 10 mg PO DAILY 08/19/22 03/14/23 loratadine 10 mg PO DAILY 08/19/22 03/14/23 magnesium hydroxide 400 mg/5 mL 30 ml PO DAILY PRN constipation 08/19/22 03/14/23 oral suspension montelukast 10 mg tablet 10 mg PO DAILY 08/19/22 03/14/23 omeprazole 40 mg capsule,delayed 40 mg PO DAILY 08/19/22 03/14/23 release oxycodone 5 mg capsule 5 mg PO Q8H PRN pain 08/19/22 03/14/23 pregabalin 100 mg capsule 100 mg PO Q12H 08/19/22 03/14/23 terazosin 2 mg capsule 2 mg PO DAILY 08/19/22 03/14/23 verapamil 240 mg tablet,extended 240 mg PO DAILY 08/19/22 03/14/23 release aspirin 81 mg tablet,delayed 81 mg PO DAILY 03/14/23 03/14/23 release tiotropium 2.5 mcg-olodaterol 2.5 2 inh inhalation Q24H 03/15/23 03/15/23 mcg/actuation mist for inhalation (Stiolto Respimat) Allergies Allergy/AdvReac Type Severity Reaction Status Date / Time Iodinated Contrast Media AdvReac Intermediate Verified 06/17/23 20:08 Opioid HPI Opioid Management Most Recent Opioid Data: Last Pain Scale 8 06/17/23 21:47 Ur Phencyclidine Scrn Negative (NEGATIVE) 03/14/23 09:08 Review of Systems ROS Narrative A ten point review of systems is negative except as noted above. PFSH PFSH Medical History Dehydration ?E86.0 - Dehydration (ICD-10) Acute renal failure ?N17.9 - Acute kidney failure, unspecified (ICD-10) BPH (benign prostatic hyperplasia) ?N40.0 - Benign prostatic hyperplasia without lower urinary tract symptoms (ICD-10) Lumbar degenerative disc disease ?M51.36 - Other intervertebral disc degeneration, lumbar region (ICD-10) Hyperlipidemia ?E78.5 - Hyperlipidemia, unspecified (ICD-10) Congestive heart failure ?I50.9 - Heart failure, unspecified (ICD-10) Neuropathy ?G62.9 - Polyneuropathy, unspecified (ICD-10) Acute kidney injury ?N17.9 - Acute kidney failure, unspecified (ICD-10) Surgical History H/O lumbosacral spine surgery ?Z98.890 - Other specified postprocedural states (ICD-10) H/O cervical spine surgery ?Z98.890 - Other specified postprocedural states (ICD-10) Family History Sister Family history of cancer Social History Within the past year, how often did you have a drink containing alcohol: never Within the past year, how often did you have six or more drinks on one occasion: never Score interpretation: A score less than 4 is consistent with normal alcohol consumption. Smoking status: Former smoker Second hand tobacco smoke exposure: No Non-prescribed substance use: denies use Previous occupational history: retired Known occupational exposures/hazards: No Highest level of school completed/degree received: high school graduate In a typical week, how many times do you talk on the telephone with family, friends, or neighbors: twice per week How often do you get together with friends or relatives: 3 or more times per week How often do you attend pentecostal or orthodoxy services: never Do you belong to any clubs or organizations such as pentecostal groups unions, fraternal or athletic groups, or school groups: no Little interest or pleasure in doing things: several days Feeling down, depressed, or hopeless: several days Feel stressed/tense/nervous/anxious/difficulty sleeping: to some extent Due to disability, difficulty making decisions: No Do you think of yourself as: straight/heterosexual Gender Identity: male Exam Narrative Exam Narrative: Nurses note and vital signs reviewed and patient is not hypoxic. General: The patient appears well and in no apparent distress. Skin: Warm, dry, no pallor noted. There is no rash noted. There is an area of erythema just proximal to the right antecubital fossa where he had an IV previously. There is no fluctuance. Head: Normocephalic, atraumatic Eye: Normal conjunctiva, no drainage Ears, Nose, Mouth, and Throat: oral mucosa is moist. Nares patent. Cardiovascular: Regular Rate and Rhythm Respiratory: Patient is in no distress, no accessory muscle use, lungs are clear to auscultation, no wheezing, rales or rhonchi Back: non-tender GI: Soft and nontender Musculoskeletal: Left hip surgical incision is healing well with no dehiscence. Leidy in place. Neurological: A&O, normal speech Psychiatric: Cooperative Constitutional Vital Signs, click to edit/add: Last Vital Signs Temp 98.2 F 06/17/23 20:04 Pulse 88 06/17/23 21:15 Resp 28 H 06/17/23 21:15 BP 128/64 06/17/23 21:30 Pulse Ox 98 06/17/23 21:15 O2 Del Method Room Air 06/17/23 20:04 Course Vital Signs Vital signs: Vital Signs Temperature 98.2 F 06/17/23 20:04 Pulse Rate 89 06/17/23 20:04 Respiratory Rate 16 06/17/23 20:04 Blood Pressure 173/82 H 06/17/23 20:04 Pulse Oximetry 92 L 06/17/23 20:04 Oxygen Delivery Method Room Air 06/17/23 20:04 Temperature 98.2 F 06/17/23 20:04 Pulse Rate 88 06/17/23 21:15 Respiratory Rate 28 H 06/17/23 21:15 Blood Pressure 128/64 06/17/23 21:30 Pulse Oximetry 98 06/17/23 21:15 Oxygen Delivery Method Room Air 06/17/23 20:04 Medical Decision Making MDM Narrative Medical decision making narrative: The patient and his family is not satisfied with the care he has been getting from the current [facility]. He will be admitted with high school social studies tutor consult. Differential Diagnosis Differential Diagnosis: Postoperative pain, generalized weakness, poor social situation Lab Data Lab results reviewed: Yes I reviewed the patient's lab results Labs: Lab Results 06/17/23 06/17/23 Range/Units 20:40 20:50 WBC 10.0 (4.0-11.0) 10^3/uL RBC 2.93 L (4.70-6.10) 10^6/uL Hgb 8.9 L (14.0-18.0) g/dL Hct 27.0 L (42.0-54.0) % MCV 92.2 (80.0-94.0) fL MCH 30.4 (25.9-34.0) pg MCHC 33.0 (29.9-35.2) g/dL RDW 12.7 (11.0-15.0) % Plt Count 387 (150-450) 10^3/uL MPV 9.0 L (9.5-13.5) fL Neut % (Auto) 65.6 (43.0-75.0) % Lymph % (Auto) 20.6 (20.5-60.0) % Swift % (Auto) 8.9 (1.7-12.0) % Eos % (Auto) 3.7 (0.9-7.0) % Baso % (Auto) 0.8 (0.2-2.0) % Neut # (Auto) 6.5 (1.4-6.5) 10^3/uL Lymph # (Auto) 2.1 (1.2-3.8) 10^3/uL Swift # (Auto) 0.9 H (0.3-0.8) 10^3/uL Eos # (Auto) 0.4 (0.0-0.7) 10^3/uL Baso # (Auto) 0.1 (0.0-0.1) 10^3/uL Abs Immat Gran (auto) 0.04 H (0.00-0.03) 10^3/uL Imm/Tot Granulo (auto) 0.4 (0.0-0.5) % Sodium 135 L (136-145) mmol/L Potassium 4.4 (3.5-5.1) mmol/L Chloride 98 (98-107) mmol/L Carbon Dioxide 29.3 (21.0-32.0) mmol/L Anion Gap 12.1 BUN 18.0 (7.0-18.0) mg/dL Creatinine 0.93 (0.70-1.30) mg/dL Est GFR ( Amer) >60 (>=60) Est GFR (Non-Af Amer) >60 (>=60) BUN/Creatinine Ratio 19.4 Glucose 136 H (74-106) mg/dL Calcium 9.5 (8.5-10.1) mg/dL Discharge Plan Discharge Stand Alone Forms: Portal Instructions Chief Complaint: Weakness Clinical Impression: Generalized weakness Patient Disposition: Admitted as Observation Time of Disposition Decision: 22:01 Condition: Good Prescriptions / Home Meds: No Action atorvastatin 40 mg tablet 40 mg PO DAILY baclofen 10 mg tablet 10 mg PO TID carbamazepine 400 mg tablet extended release 12 hr 400 mg PO Q12H clopidogrel 75 mg tablet 75 mg PO DAILY diazepam 5 mg tablet 5 mg PO Q6H duloxetine 60 mg capsule,delayed release(DR/EC) 60 mg PO DAILY levalbuterol tartrate 45 mcg/actuation HFA aerosol inhaler 2 puff INHALATION Q6H lisinopril 10 mg tablet 10 mg PO DAILY montelukast 10 mg tablet 10 mg PO DAILY pregabalin 100 mg capsule 100 mg PO Q12H terazosin 2 mg capsule 2 mg PO DAILY albuterol sulfate 90 mcg/actuation HFA aerosol inhaler 1 inh INHALATION Q4H PRN (Reason: shortness of breath or wheezing) fluticasone propionate 50 mcg/actuation spray,suspension 1 spray INTRANASAL DAILY loratadine 10 mg PO DAILY magnesium hydroxide 400 mg/5 mL suspension 30 ml PO DAILY PRN (Reason: constipation) omeprazole 40 mg capsule,delayed release(DR/EC) 40 mg PO DAILY oxycodone 5 mg capsule 5 mg PO Q8H PRN (Reason: pain) verapamil 240 mg tablet extended release 240 mg PO DAILY aspirin 81 mg tablet,delayed release (DR/EC) 81 mg PO DAILY Stiolto Respimat 2.5-2.5 mcg/actuation mist 2 inh INHALATION Q24H Print Language: Bermudian Referrals: NU HERNANDEZ [Primary Care Provider] - 1 week
[2023-06-17 20:59] LABS: Basophils Absolute Auto 0.1 10^3/uL (0.0-0.1); Basophils Percent Auto 0.8 % (0.2-2.0); Eosinophils Absolute Auto 0.4 10^3/uL (0.0-0.7); Eosinophils Percent Auto 3.7 % (0.9-7.0); Hemoglobin 8.9 g/dL (14.0-18.0); Immature Granulocytes Abs Auto 0.04 10^3/uL (0.00-0.03); Immature Granulocytes Pct Auto 0.4 % (0.0-0.5); Lymphocytes Absolute Auto 2.1 10^3/uL (1.2-3.8); Lymphocytes Percent Auto 20.6 % (20.5-60.0); Mean Corpuscular Hemoglobin 30.4 pg (25.9-34.0); Mean Corpuscular Volume 92.2 fL (80.0-94.0); Monocytes Absolute Auto 0.9 10^3/uL (0.3-0.8); Monocytes Percent Auto 8.9 % (1.7-12.0); Neutrophils Absolute Auto 6.5 10^3/uL (1.4-6.5); Neutrophils Percent Auto 65.6 % (43.0-75.0); Platelet Count 387 10^3/uL (150-450); Red Blood Count 2.93 10^6/uL (4.70-6.10); Red Cell Distribution Width 12.7 % (11.0-15.0)
[2023-06-17 21:09] LABS: Anion Gap 12.1; BUN Creatinine Ratio 19.4; Calcium 9.5 mg/dL (8.5-10.1); Carbon Dioxide 29.3 mmol/L (21.0-32.0); Chloride 98 mmol/L (98-107); Estimated GFR (African America >60 (>=60); Estimated GFR (Non-African Ame >60 (>=60); Glucose 136 mg/dL (74-106); Potassium 4.4 mmol/L (3.5-5.1); Sodium 135 mmol/L (136-145)
[2023-06-17] MEDS: OXYCODONE HCL/ACETAMINOPHEN 5MG/325MG 1 TAB PO (21:47)
[2023-06-17] MEDS: MORPHINE SULFATE 2 MG/ML SYRINGE IV (23:21)
[2023-06-18] VITALS (15 sets, daily range): BP systolic 105–160; BP diastolic 62–83; PULSE 61–80; TEMP 36.7–36.9; O2SAT 2–98; BMI 33.9
--- OUTSIDE RECORDS SUMMARY | 2023-06-18 00:33 | XMS_ITS | CCD ---
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 Role Phone CARLOS EVANS Admitting Unavailable CARLOS EVANS Attending Unavailable CAST, JENNY Referring Unavailable CAST, JENNY Primary Care Unavailable CARLOS EVANS Admitting Unavailable CARLOS EVANS Attending Unavailable CAST, JENNY Referring Unavailable CAST, JENNY Primary Care Unavailable Maira Shah Admitting Unavailable Maira Shah Attending Unavailable CAST, EJNNY Referring Unavailable CAST, JENNY Primary Care Unavailable [...] Referring Unavailable CAST, JENNY Primary Care Unavailable [place] Procedure Practitioner Unavailab SHELLI AmosIL Surgeon Unavailable [place] Procedure Practitioner Unavailab JOANNA Rose Surgeon Unavailable HEMA VILCHIS Admitting Unavailable HEMA VILCHIS Attending Unavailable CAST, JENNY Referring Unavailable CAST, JENNY Primary Care Unavailable Cast, Jenny A Primary Care Provider [phone] AZUCENA EVANS Referring Unavailable CAST, JENNY A Primary Care Unavailable CRISTINALISAL Referring Unavailable CAST, JENNY A Primary Care Unavailable CAST, JENNY A Primary Care Unavailable AZUCENA EVANS Referring Unavailable JENNY CAST Primary Care Physician [phone] Cintia Alves Attending Unavailable Shawn, Cintia Hernandez [...] Attending Unavailable DAVON ORTIZ Admitting Unavailable JESSA DAAM Consulting Unavailable CARA, DR KAY Baltazar Consulting [...] Care Unavailable HASEEN, TORIBIO Referring Unavailable HASEEN, TORIBIO Referring Unavailable CAST, JENNY A Primary Care Unavailable LYSSA CARDENAS Referring Unavailable CAST, JENNY A Primary Care Unavailable CAST, JENNY A Referring Unavailable CAST, JENNY A Primary Care Unavailable RADHA, MOHAMNAD MAHMOUD Referring Unavail able HASEEN, OTRIBIO Referring Unavailable CAST, JENNY A Primary Care [...] Propensity to adverse reactions to drug 0 [place], [place] (5 sources) Contrast media; Translations: [contrast media (iodine-based)] Drug allergy Anaphylaxis (disorder) [facility] (1 source) Iodine (And Iodine Containting Drugs) Drug allergy (disorder) [facility] (1 source) Pneumovax 23 Drug allergy (disorder) 5 [facility] (9 sources) Sulfonamides (Antibiotic); Translations: [SULFA (SULFONAMIDE ANTIBIOTICS)] Propensity to adverse reactions to drug 0 [place] (9 sources) Iodinated Contrast Media; Translations: [IODINATED CONTRAST MEDIA] Propensity to adverse reactions to drug 8 Anaphylaxis [facility] Medications Current Medications Medication Drug Class(es) [...] 1.33 mg/ml oral solution (1 source) Uncompetitive Z-vvyyij-K-aspartate Receptor Antagonist, Sigma-1 Agonist dextromethorphan HBr (CREOMULSION [...] Start: 12-03-2019 take 1 capsule by mo [facility] once daily 30 mg, Oral, DAILY, First [...] Active Start: 02-24-2021 take 1 capsule by [facility] three times daily oxyCODONE 5 mg Cap 5 mg = 1 cap(s), Oral, TID, Refills(s) 0, Pain Start Date: 02/24/21 Status: Ordered Start: 12-03-2019 oxyCODONE (AMARI ICODONE) immediate release tablet 10 mg polyethylene glycol 3350 80122 mg powder for oral solution (1 source) [...] bedtime), # 30 cap(s), Refills(s) 6, Pharmacy: [facility] [address], [address], cm, 04/28/21 12:55:00 EDT, Height/Length [...] Drug Class(es) Dates Sig (Normalized) Sig (Original) [id number] 200 actuat albuterol 0.09 mg/actuat metered dose [...] every other day 0 Active polymyxin b 67072 unt/ml / trimethoprim 1 mg/ml ophthalmic solution [...] 01-26-2018 Chronic Other aftercare (1 source) Other long-term (current) drug therapy; Translations: [OTH STEEL TESTER CURRENT DRUG THERAPY] Onset: 04-20-2022 Episodic Other aftercare (1 source) 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0-0.2 [facility] Comment on above: Performed By: #### P INR, 33626-0, THYR, CMP, 2777-1, 74923-2 #### [facility] ([id number]) [address], [address] [place] [address] ABSOLUTE NEUTROPHIL 4.4 X10E9/L Normal 1.5-6.6 [facility] Comment on above: Performed By: #### P INR, 17217-4, THYR, CMP, 2776-02, #### [facility] ([id number]) [address] [address] Basophils/100 WBC (Bld) 1.1 % Normal [facility] Comment on above: Performed By: #### P INR, 45638-6, THYR, CMP, 2776-02, #### [facility] ([id number]) [address] [address] Eosinophils (Bld) [#/Vol] 0.3 10*3/uL Normal 0.0-0.4 [facility] Comment on above: Performed By: #### P INR, 94123-4, THYR, CMP, 2776-02, #### [facility] ([id number]) [address] [address] Eosinophils/100 WBC (Bld) 4.3 % Normal [facility] Comment on above: Performed By: #### P INR, 57323-1, THYR, CMP, 2776-02, #### [facility] ([id number]) [address] [address] Erythrocyte distribution width (RBC) [Ratio] 13.1 % Normal 11.5-15.0 [facility] Comment on above: Performed By: #### P INR, 20080-0, THYR, CMP, 2776-02, #### [facility] ([id number]) [address] [address] Hematocrit (Bld) [Volume fraction] 22.7 % Low 39-49 [facility] Comment on above: Performed By: #### P INR, 98180-0, THYR, CMP, 2776-02, #### [facility] ([id number]) [address] [address] Hemoglobin (Bld) [Mass/Vol] 7.8 g/dL Low 13.0-17.0 [facility] Comment on above: Performed By: #### P INR, 38325-7, THYR, CMP, 2776-02, #### [facility] ([id number]) [address] [address] Lymphocytes (Bld) [#/Vol] 2.1 10*3/uL Normal 1.0-3.5 [facility] Comment on above: Performed By: #### P INR, 12138-7, THYR, CMP, 2776-02, #### [facility] ([id number]) [address] [address] Lymphocytes/100 WBC (Bld) 26.2 % Normal [facility] Comment on above: Performed By: #### P INR, 19611-6, THYR, CMP, 2776-02, #### [facility] ([id number]) [address] [address] MCH (RBC) [Entitic mass] 30.9 pg Normal 27-34 [facility] Comment on above: Performed By: #### P INR, 89959-1, THYR, CMP, 2776-02, #### [facility] ([id number]) [address] [address] MCHC (RBC) [Mass/Vol] 34.6 g/dL Normal 32-36 [facility] Comment on above: Performed By: #### P INR, 90064-9, THYR, CMP, 2776-02, #### [facility] ([id number]) [address] [address] [place] [address] MCV (RBC) [Entitic vol] 89 fL Normal 80-100 [facility] Comment on above: Performed By: #### P INR, 99686-4, THYR, CMP, 2776-, #### [facility] ([id number]) [address], [address] [place] [address] Monocytes (Bld) [#/Vol] 0.9 10*3/uL Normal 0-0.9 [facility] Comment on above: Performed By: #### P INR, 57715-4, THYR, CMP, 2776-, #### [facility] ([id number]) [address], [address] [place] [address] Monocytes/100 WBC (Bld) 12.0 % Normal [facility] Comment on above: Performed By: #### P INR, 16745-3, THYR, CMP, 2776-, #### [facility] ([id number]) [address], [address] [place] [address] Neutrophils/100 WBC (Bld) 56.4 % Normal [facility] Comment on above: Performed By: #### P INR, 34672-4, THYR, CMP, 2776-02, #### [facility] ([id number]) [address], [address] [place] [address] Platelet mean volume (Bld) [Entitic vol] 7.5 fL Normal 7-12 [facility] Comment on above: Performed By: #### P INR, 55147-7, THYR, CMP, 2776-, #### [facility] ([id number]) [address], [address] [place] [address] Platelets (Bld) [#/Vol] 316 10*3/uL Normal 150-450 [facility] Comment on above: Performed By: #### P INR, 14722-2, THYR, CMP, 2776-, #### [facility] ([id number]) [address], [address] [place] [address] RBC COUNT 2.54 X10E12/L Low 4.10-5.70 [facility] Comment on above: Performed By: #### P INR, 55591-5, THYR, CMP, 2776-, #### [facility] ([id number]) [address], [address] [place] [address] WBC (Bld) [#/Vol] 7.9 10*3/uL Normal 4.0-11.0 [facility] Comment on above: Performed By: #### P INR, 29731-1, THYR, CMP, 2776-, #### [facility] ([id number]) [address], [address] [place] [address] COMPREHENSIVE METABOLIC PANE Reagan 06-16-2023 Albumin [Mass/Vol] 3.3 g/dL Normal 3.2-5.3 [facility] Comment on above: Performed By: #### P INR, 64728-8, THYR, CMP, 2776-, #### [facility] ([id number]) [address], [address] [place] [address] ALP [Catalytic activity/Vol] 56 U/L Normal 39-130 [facility] Comment on above: Performed By: #### P INR, 04034-3, THYR, CMP, 2776-, #### [facility] ([id number]) [address], [address] [place] [address] ALT [Catalytic activity/Vol] 23 U/L Normal 0-40 [facility] Comment on above: Performed By: #### P INR, 56651-6, THYR, CMP, 2776-, #### [facility] ([id number]) [address], [address] [place] [address] Anion gap [Moles/Vol] 7 mmol/L Normal 5-15 [facility] Comment on above: Performed By: #### P INR, 50371-1, THYR, CMP, 2776-02, #### [facility] ([id number]) [address], [address] [place] [address] AST [Catalytic activity/Vol] 35 U/L Normal 0-41 [facility] Comment on above: Performed By: #### P INR, 12557-6, THYR, CMP, 2776-02, #### [facility] ([id number]) [address], [address] [place] [address] Bilirubin [Mass/Vol] 0.4 mg/dL Normal 0.3-1.2 [facility] Comment on above: Performed By: #### P INR, 38470-5, THYR, CMP, 2776-02, #### [facility] ([id number]) [address], [address] [place] [address] Calcium [Mass/Vol] 9.1 mg/dL Normal 8.5-10.5 [facility] Comment on above: Performed By: #### P INR, 43152-1, THYR, CMP, 2776-02, #### [facility] ([id number]) [address], [address] [place] [address] Chloride [Moles/Vol] 101 mmol/L Normal 98-109 [facility] Comment on above: Performed By: #### P INR, 99621-4, THYR, CMP, 2776-02, #### [facility] ([id number]) [address], [address] [place] [address] CO2 [Moles/Vol] 28 mmol/L Normal 22-32 [facility] Comment on above: Performed By: #### P INR, 42198-2, THYR, CMP, 2776-02, #### [facility] ([id number]) [address], [address] [place] [address] Creatinine [Mass/Vol] 0.82 mg/dL Normal 0.60-1.30 [facility] Comment on above: Result Comment: METH OD TRACEABLE TO IDMS STANDARD Performed By: #### P INR, 60992-4, THYR, CMP, 2776-02, #### [facility] ([id number]) [address], [address] [place] [address] eGFR (CKD-EPI) NON-RACE DEPENDENT >90 Normal >59 [facility] Comment on above: Result Comment: Reported eGFR is based on the CKD-EPI 2020 equation that does not use a race coefficient. Performed By: #### P INR, 05788-4, THYR, CMP, 2776-02, #### [facility] ([id number]) [address], [address] [place] [address] Glucose [Mass/Vol] 127 mg/dL High 65-99 [facility] Comment on above: Performed By: #### P INR, 20409-1, THYR, CMP, 2776-02, #### [facility] ([id number]) [address] [address] [place] [address] Potassium [Moles/Vol] 4.6 mmol/L Normal 3.5-5.0 [facility] Comment on above: Performed By: #### P INR, 84542-8, THYR, CMP, 2776-02, #### [facility] ([id number]) [address] [address] [place] [address] Protein [Mass/Vol] 5.9 g/dL Low 6.0-8.0 [facility] Comment on above: Performed By: #### P INR, 14006-8, THYR, CMP, 2776-02, #### [facility] ([id number]) [address], [address] [place] [address] Sodium [Moles/Vol] 136 mmol/L Normal 134-146 [facility] Comment on above: Performed By: #### P INR, 67304-7, THYR, CMP, 2776-02, #### [facility] ([id number]) [address], [address] [place] [address] Urea nitrogen [Mass/Vol] 23 mg/dL Normal 5-27 [facility] Comment on above: Performed By: #### P INR, 96112-7, THYR, CMP, 2776-02, #### [facility] ([id number]) [address], [address] [place] [address] MAGNESIUMon 06-16-2023 Magnesium [Mass/Vol] 1.8 mg/dL Normal 1.8-2.6 [facility] Comment on above: Performed By: #### P INR, 88476-4, THYR, CMP, 2776-02, #### [facility] ([id number]) [address], [address] [place] [address] BASIC METABOLIC PANLon 06-13 Anion gap [Moles/Vol] 7 mmol/L Normal 5-15 [facility] Comment on above: Performed By: #### P INR, 47644-4, THYR, CMP, 2776-02, #### [facility] ([id number]) [address], [address] [place] [address] Calcium [Mass/Vol] 8.6 mg/dL Normal 8.5-10.5 [facility] Comment on above: Performed By: #### P INR, 16741-1, THYR, CMP, 2776-02, #### [facility] ([id number]) [address], [address] [place] [address] Chloride [Moles/Vol] 100 mmol/L Normal 98-109 [facility] Comment on above: Performed By: #### P INR, 04688-0, THYR, CMP, 2776-02, #### [facility] ([id number]) [address], [address] [place] [address] CO2 [Moles/Vol] 28 mmol/L Normal 22-32 [facility] Comment on above: Performed By: #### P INR, 68526-5, THYR, CMP, 2776-02, #### [facility] ([id number]) [address] [facility] [address] [place] [address] Creatinine [Mass/Vol] 0.88 mg/dL Normal 0.60-1.30 [facility] Comment on above: Result Comment: METH OD TRACEABLE TO IDMS STANDARD Performed By: #### P INR, 06704-9, THYR, CMP, 2776-02, #### [facility] ([id number]) [address], [facility] [address] [place] [address] eGFR (CKD-EPI) NON-RACE DEPENDENT >90 Normal >59 [facility] Comment on above: Result Comment: Reported eGFR is based on the CKD-EPI 2020 equation that does not use a race coefficient. Performed By: #### P INR, 31009-8, THYR, CMP, 2776-02, #### [facility] ([id number]) [address] [place] [address] Glucose [Mass/Vol] 110 mg/dL High 65-99 [facility] Comment on above: Performed By: #### P INR, 12321-2, THYR, CMP, 2776-02, #### [facility] ([id number]) [address], [address] [place] [address] Potassium [Moles/Vol] 4.2 mmol/L Normal 3.5-5.0 [facility] Comment on above: Performed By: #### P INR, 15646-5, THYR, CMP, 2776-02, #### [facility] ([id number]) [address], [address] [place] [address] Sodium [Moles/Vol] 135 mmol/L Normal 134-146 [facility] Comment on above: Performed By: #### P INR, 76783-2, THYR, CMP, 2776-02, #### [facility] ([id number]) [address], [address] [place] [address] Urea nitrogen [Mass/Vol] 25 mg/dL Normal 5-27 [facility] Comment on above: Performed By: #### P INR, 46301-2, THYR, CMP, 2776-02, #### [facility] ([id number]) [address], [address] [place] [address] COMPLETE BLOOD COUNTon 06-13 Erythrocyte distribution width (RBC) [Ratio] 13.5 % Normal 11.5-15.0 [facility] Comment on above: Performed By: #### P INR, 01769-1, THYR, CMP, 2776-02, #### [facility] ([id number]) [address], [address] [place] [address] Hematocrit (Bld) [Volume fraction] 23.8 % Low 39-49 [facility] Comment on above: Performed By: #### P INR, 27096-8, THYR, CMP, 2776-02, #### [facility] ([id number]) [address], [address] [place] [address] Hemoglobin (Bld) [Mass/Vol] 8.2 g/dL Low 13.0-17.0 [facility] Comment on above: Performed By: #### P INR, 89845-4, THYR, CMP, 2776-, #### [facility] ([id number]) [address], [address] [place] [address] MCH (RBC) [Entitic mass] 30.8 pg Normal 27-34 [facility] Comment on above: Performed By: #### P INR, 91146-6, THYR, CMP, 2776-, #### [facility] ([id number]) [address], [address] [place] [address] MCHC (RBC) [Mass/Vol] 34.5 g/dL Normal 32-36 [facility] Comment on above: Performed By: #### P INR, 12298-8, THYR, CMP, 2776-, #### [facility] ([id number]) [address], [address] [place] [address] MCV (RBC) [Entitic vol] 89 fL Normal 80-100 [facility] Comment on above: Performed By: #### P INR, 66291-0, THYR, CMP, 2776-02, #### [facility] ([id number]) [address] [facility] [address] [place] [address] Platelet mean volume (Bld) [Entitic vol] 7.5 fL Normal 7-12 [facility] Comment on above: Performed By: #### P INR, 23979-3, THYR, CMP, 2776-, #### [facility] ([id number]) [address] [address] [place] [address] Platelets (Bld) [#/Vol] 234 10*3/uL Normal 150-450 [facility] Comment on above: Performed By: #### P INR, 66762-7, THYR, CMP, 2776-, #### [facility] ([id number]) [address], [address] [place] [address] RBC COUNT 2.67 X10E12/L Low 4.10-5.70 [facility] Comment on above: Performed By: #### P INR, 61448-8, THYR, CMP, 2776-02, #### [facility] ([id number]) [address], [address] [place] [address] WBC (Bld) [#/Vol] 7.4 10*3/uL Normal 4.0-11.0 [facility] Comment on above: Performed By: #### P INR, 77063-8, THYR, CMP, 2776-02, #### [facility] ([id number]) [address], [address] [place] [address] MAGNESIUMon 06-14-2023 Magnesium [Mass/Vol] 2.1 mg/dL Normal 1.8-2.6 [facility] Comment on above: Performed By: #### P INR, 66018-5, THYR, CMP, 2776-02, #### [facility] ([id number]) [address], [address] [place] [address] BASIC METABOLIC PANLon 06-12 Anion gap [Moles/Vol] 8 mmol/L Normal 5-15 [facility] Comment on above: Performed By: #### P INR, 31294-9, THYR, CMP, 2776-02, #### [facility] ([id number]) [address], [address] [place] [address] Calcium [Mass/Vol] 8.1 mg/dL Low 8.5-10.5 [facility] Comment on above: Performed By: #### P INR, 14729-7, THYR, CMP, 2776-02, #### [facility] ([id number]) [address], [address] [place] [address] Chloride [Moles/Vol] 101 mmol/L Normal 98-109 [facility] Comment on above: Performed By: #### P INR, 18949-7, THYR, CMP, 2776-02, #### [facility] ([id number]) [address], [address] [place] [address] CO2 [Moles/Vol] 25 mmol/L Normal 22-32 [facility] Comment on above: Performed By: #### P INR, 14839-2, THYR, CMP, 2776-, #### [facility] ([id number]) [address], [address] [place] [address] Creatinine [Mass/Vol] 1.07 mg/dL Normal 0.60-1.30 [facility] Comment on above: Result Comment: METH OD TRACEABLE TO IDMS STANDARD Performed By: #### P INR, 93627-3, THYR, CMP, 2776-02, #### [facility] ([id number]) [address], [address] [place] [address] GFR/1.73 sq M.predicted among non-blacks MDRD (S/P/Bld) [Vol rate/Area] 73 mL/min/{1.73_m2} Normal >59 [facility] Comment on above: Result Comment: Reported eGFR is based on the CKD-EPI 2020 equation that does not use a race coefficient. Performed By: #### P INR, 46254-9, THYR, CMP, 2776-, #### [facility] ([id number]) [address], [address] [place] [address] Glucose [Mass/Vol] 108 mg/dL High 65-99 [facility] Comment on above: Performed By: #### P INR, 26013-2, THYR, CMP, 2776-, #### [facility] ([id number]) [address], [address] [place] [address] Potassium [Moles/Vol] 4.2 mmol/L Normal 3.5-5.0 [facility] Comment on above: Performed By: #### P INR, 86566-2, THYR, CMP, 2776-02, #### [facility] ([id number]) [address], [address] [place] [address] Sodium [Moles/Vol] 134 mmol/L Normal 134-146 [facility] Comment on above: Performed By: #### P INR, 53929-5, THYR, CMP, 2776-02, #### [facility] ([id number]) [address] [address] [place] [address] Urea nitrogen [Mass/Vol] 23 mg/dL Normal 5-27 [facility] Comment on above: Performed By: #### P INR, 46925-8, THYR, CMP, 2776-02, #### [facility] ([id number]) [address] [address] [place] [address] COMPLETE BLOOD COUNTon 06-12 Erythrocyte distribution width (RBC) [Ratio] 13.4 % Normal 11.5-15.0 [facility] Comment on above: Performed By: #### P INR, 92095-0, THYR, CMP, 2776-02, #### [facility] ([id number]) [address] [address] [place] [address] Hematocrit (Bld) [Volume fraction] 22.3 % Low 39-49 [facility] Comment on above: Performed By: #### P INR, 60155-9, THYR, CMP, 2776-02, #### [facility] ([id number]) [address], [address] [place] [address] Hemoglobin (Bld) [Mass/Vol] 7.7 g/dL Low 13.0-17.0 [facility] Comment on above: Performed By: #### P INR, 58813-2, THYR, CMP, 2776-02, #### [facility] ([id number]) [address], [address] [place] [address] MCH (RBC) [Entitic mass] 30.8 pg Normal 27-34 [facility] Comment on above: Performed By: #### P INR, 69857-5, THYR, CMP, 2776-02, #### [facility] ([id number]) [address], [facility] [address] [place] [address] MCHC (RBC) [Mass/Vol] 34.5 g/dL Normal 32-36 [facility] Comment on above: Performed By: #### P INR, 59096-6, THYR, CMP, 2776-02, #### [facility] ([id number]) [address], [address] [place] [address] MCV (RBC) [Entitic vol] 89 fL Normal 80-100 [facility] Comment on above: Performed By: #### P INR, 97986-5, THYR, CMP, 2776-02, #### [facility] ([id number]) [address], [address] [place] [address] Platelet mean volume (Bld) [Entitic vol] 7.6 fL Normal 7-12 [facility] Comment on above: Performed By: #### P INR, 69824-0, THYR, CMP, 2776-02, #### [facility] ([id number]) [address], [address] [place] [address] Platelets (Bld) [#/Vol] 263 10*3/uL Normal 150-450 [facility] Comment on above: Performed By: #### P INR, 93271-8, THYR, CMP, 2776-02, #### [facility] ([id number]) [address], [address] [place] [address] RBC COUNT 2.50 X10E12/L Low 4.10-5.70 [facility] Comment on above: Performed By: #### P INR, 43589-9, THYR, CMP, 2776-02, #### [facility] [facility] ([id number]) [address], [address] [place] [address] WBC (Bld) [#/Vol] 7.4 10*3/uL Normal 4.0-11.0 [facility] Comment on above: Performed By: #### P INR, 22949-4, THYR, CMP, 2776-02, #### [facility] ([id number]) [address], [address] [place] [address] HGB AND HCTon 06-13-2023 Hematocrit (Bld) [Volume fraction] 23.8 % Low 39-49 [facility] Comment on above: Performed By: #### P INR, 87952-5, THYR, CMP, 2776-02, #### [facility] ([id number]) [address], [address] [place] [address] Hemoglobin (Bld) [Mass/Vol] 8.2 g/dL Low 13.0-17.0 [facility] Comment on above: Performed By: #### P INR, 49869-6, THYR, CMP, 2776-02, #### [facility] ([id number]) [address], [address] [place] [address] MAGNESIUMon 06-13-2023 Magnesium [Mass/Vol] 2.2 mg/dL Normal 1.8-2.6 [facility] Comment on above: Performed By: #### P INR, 47293-9, THYR, CMP, 2776-02, #### [facility] ([id number]) [address], [address] [place] [address] BASIC METABOLIC PANLon 06-11 Anion gap [Moles/Vol] 8 mmol/L Normal 5-15 [facility] Comment on above: Performed By: #### P INR, 09726-4, THYR, CMP, 2776-02, #### [facility] ([id number]) [address], [address] [place] [address] Calcium [Mass/Vol] 8.8 mg/dL Normal 8.5-10.5 [facility] Comment on above: Performed By: #### P INR, 50321-3, THYR, CMP, 2776-02, #### [facility] ([id number]) [address], [address] [place] [address] Chloride [Moles/Vol] 97 mmol/L Low 98-109 [facility] Comment on above: Performed By: #### P INR, 16098-3, THYR, CMP, 2776-02, #### [facility] ([id number]) [address], [address] [place] [address] CO2 [Moles/Vol] 27 mmol/L Normal 22-32 [facility] Comment on above: Performed By: #### P INR, 53904-7, THYR, CMP, 2776-02, #### [facility] ([id number]) [address], [address] [place] [address] Creatinine [Mass/Vol] 0.71 mg/dL Normal 0.60-1.30 [facility] Comment on above: Result Comment: METH OD TRACEABLE TO IDMS STANDARD Performed By: #### P INR, 06285-5, THYR, CMP, 2776-02, #### [facility] ([id number]) [address], [address] [place] [address] eGFR (CKD-EPI) NON-RACE DEPENDENT >90 Normal >59 [facility] Comment on above: Result Comment: Reported eGFR is based on the CKD-EPI 2020 equation that does not use a race coefficient. Performed By: #### P INR, 68903-7, THYR, CMP, 2776-02, #### [facility] ([id number]) [address], [facility] [address] [place] [address] Glucose [Mass/Vol] 126 mg/dL High 65-99 [facility] Comment on above: Performed By: #### P INR, 82930-8, THYR, CMP, 2776-02, #### [facility] ([id number]) [address] [address] [place] [address] Potassium [Moles/Vol] 4.1 mmol/L Normal 3.5-5.0 [facility] Comment on above: Performed By: #### P INR, 13661-0, THYR, CMP, 2776-02, #### [facility] ([id number]) [address] [address] [place] [address] Sodium [Moles/Vol] 132 mmol/L Low 134-146 [facility] Comment on above: Performed By: #### P INR, 46116-3, THYR, CMP, 2776-02, #### [facility] ([id number]) [address] [address] [place] [address] Urea nitrogen [Mass/Vol] 13 mg/dL Normal 5-27 [facility] Comment on above: Performed By: #### P INR, 16629-0, THYR, CMP, 2776-02, #### [facility] ([id number]) [address] [address] [place] [address] COMPLETE BLOOD COUNTon 06-11 Erythrocyte distribution width (RBC) [Ratio] 13.4 % Normal 11.5-15.0 [facility] Comment on above: Performed By: #### P INR, 54108-7, THYR, CMP, 2776-02, #### [facility] ([id number]) [address], [address] [place] [address] Hematocrit (Bld) [Volume fraction] 32.3 % Low 39-49 [facility] Comment on above: Performed By: #### P INR, 19686-9, THYR, CMP, 2776-02, #### [facility] ([id number]) [address], [facility] [address] [place] [address] Hemoglobin (Bld) [Mass/Vol] 11.1 g/dL Low 13.0-17.0 [facility] Comment on above: Performed By: #### P INR, 70658-3, THYR, CMP, 2776-02, #### [facility] ([id number]) [address], [facility] [address] [place] [address] MCH (RBC) [Entitic mass] 30.5 pg Normal 27-34 [facility] Comment on above: Performed By: #### P INR, 64506-0, THYR, CMP, 2776-02, #### [facility] ([id number]) [address], [address] [place] [address] MCHC (RBC) [Mass/Vol] 34.4 g/dL Normal 32-36 [facility] Comment on above: Performed By: #### P INR, 84816-8, THYR, CMP, 2776-02, #### [facility] ([id number]) [address], [facility] [address] [place] [address] MCV (RBC) [Entitic vol] 89 fL Normal 80-100 [facility] Comment on above: Performed By: #### P INR, 36491-4, THYR, CMP, 2776-02, #### [facility] ([id number]) [address], [address] [place] [address] Platelet mean volume (Bld) [Entitic vol] 7.5 fL Normal 7-12 [facility] Comment on above: Performed By: #### P INR, 11712-5, THYR, CMP, 2776-02, #### [facility] ([id number]) [address], [address] [place] [address] Platelets (Bld) [#/Vol] 351 10*3/uL Normal 150-450 [facility] Comment on above: Performed By: #### P INR, 30116-3, THYR, CMP, 2776-02, #### [facility] ([id number]) [address], [address] [place] [address] RBC COUNT 3.65 X10E12/L Low 4.10-5.70 [facility] Comment on above: Performed By: #### P INR, 03896-6, THYR, CMP, 2776-02, #### [facility] ([id number]) [address], [address] [place] [address] WBC (Bld) [#/Vol] 7.5 10*3/uL Normal 4.0-11.0 [facility] Comment on above: Performed By: #### P INR, 33832-3, THYR, CMP, 2776-02, #### [facility] ([id number]) [address], [address] [place] [address] MAGNESIUMon 06-12-2023 Magnesium [Mass/Vol] 1.9 mg/dL Normal 1.8-2.6 [facility] Comment on above: Performed By: #### P INR, 60704-8, THYR, CMP, 2777-1, 76666-7 #### [facility] ([id number]) [address], [address] [place] [address] XR HIP LT 2-3 VIEWS W OR [...] Anthony MD on 06/12/2023 6:30 PM Normal [facility] BASIC METABOLIC PANLon 06-10 Anion gap [Moles/Vol] 7 mmol/L Normal 5-15 [facility] Comment on above: Performed By: #### F EPR, 19532-1, 2857-1, 2276-4, 2284-8, 2131-10 #### [facility] ([id number]) [address], [address] [place] [address] Calcium [Mass/Vol] 8.9 mg/dL Normal 8.5-10.5 [facility] Comment on above: Performed By: #### F EPR, 34612-3, 2857-1, 2276-4, 2284-8, 2131-10 #### [facility] ([id number]) [address], [address] [place] [address] Chloride [Moles/Vol] 94 mmol/L Low 98-109 [facility] Comment on above: Performed By: #### F EPR, 38644-8, 2857-1, 2276-4, 2284-8, 2131-10 #### [facility] ([id number]) [address], [address] [place] [address] CO2 [Moles/Vol] 26 mmol/L Normal 22-32 [facility] Comment on above: Performed By: #### F EPR, 81022-7, 2857-1, 2276-4, 2283-8, 2131-10 #### [facility] ([id number]) [address], [address] [place] [address] Creatinine [Mass/Vol] 0.89 mg/dL Normal 0.70-1.20 [facility] Comment on above: Result Comment: METH OD TRACEABLE TO IDMS STANDARD Performed By: #### F EPR, 50223-4, 2857-1, 6-4, 2283-8, 2131-10 #### [facility] ([id number]) [address], [facility] [address] [place] [address] GFR/1.73 sq M.predicted among non-blacks MDRD (S/P/Bld) [Vol rate/Area] 90 mL/min/{1.73_m2} Normal >59 [facility] Comment on above: Result Comment: Reported eGFR is based on the CKD-EPI 2020 equation that does not use a race coefficient. Performed By: #### F EPR, 43756-1, 2857-1, 2275-4, 2283-09, 2131-10 #### [facility] ([id number]) [address], [address] [place] [address] Glucose [Mass/Vol] 112 mg/dL High 65-99 [facility] Comment on above: Performed By: #### F EPR, 63174-4, 2857-1, 6-4, 2283-8, 2131-10 #### [facility] ([id number]) [address], [address] [place] [address] Potassium [Moles/Vol] 4.5 mmol/L Normal 3.5-5.0 [facility] Comment on above: Performed By: #### F EPR, 69512-3, 2857-1, 2276-4, 2283-8, 2131-10 #### [facility] ([id number]) [address], [facility] [address] [place] [address] Sodium [Moles/Vol] 127 mmol/L Low 134-146 [facility] Comment on above: Performed By: #### F EPR, 30313-3, 2857-1, 2276-4, 2283-8, 2131-10 #### [facility] ([id number]) [address], [facility] [address] [place] [address] Urea nitrogen [Mass/Vol] 18 mg/dL Normal 5-27 [facility] Comment on above: Performed By: #### F EPR, 77653-9, 2857-1, 2275-4, 2283-8, 2131-10 #### [facility] ([id number]) [address], [facility] [address] [place] [address] CBC AND AUTO DIFFon 06-11-19 24 ABSOLUTE BASOPHIL 0.1 X10E9/L Normal 0.0-0.2 [facility] Comment on above: Performed By: #### F EPR, 68102-4, 2857-1, 6-4, 2283-09, 2131-10 #### [facility] ([id number]) [address], [facility] [address] [place] [address] ABSOLUTE NEUTROPHIL 3.5 X10E9/L Normal 1.5-6.6 [facility] Comment on above: Performed By: #### F EPR, 55777-0, 2857-1, 2276-4, 2283-8, 2131-10 #### [facility] ([id number]) [address] [address] Basophils/100 WBC (Bld) 1.2 % Normal [facility] Comment on above: Performed By: #### F EPR, 09396-3, 2857-1, 2276-4, 2283-8, 2131-10 #### [facility] ([id number]) [address], [address] [place] [address] Eosinophils (Bld) [#/Vol] 0.3 10*3/uL Normal 0.0-0.4 [facility] Comment on above: Performed By: #### F EPR, 43528-5, 2857-1, 2276-4, 2284-8, 2131-10 #### [facility] ([id number]) [address], [facility] [address] [place] [address] Eosinophils/100 WBC (Bld) 4.4 % Normal [facility] Comment on above: Performed By: #### F EPR, 00624-7, 2857-1, 2276-4, 2283-8, 2131-10 #### [facility] ([id number]) [address], [facility] [address] [place] [address] Erythrocyte distribution width (RBC) [Ratio] 13.3 % Normal 11.5-15.0 [facility] Comment on above: Performed By: #### F EPR, 24800-5, 2857-1, 2276-4, 2283-8, 2131-10 #### [facility] ([id number]) [address], [facility] [address] [place] [address] Hematocrit (Bld) [Volume fraction] 31.1 % Low 39-49 [facility] Comment on above: Performed By: #### F EPR, 87909-7, 2857-1, 2276-4, 2283-8, 2131-10 #### [facility] ([id number]) [address], [facility] [address] [place] [address] Hemoglobin (Bld) [Mass/Vol] 10.9 g/dL Low 13.0-17.0 [facility] Comment on above: Performed By: #### F EPR, 18448-5, 2857-1, 2276-4, 2283-8, 2131-10 #### [facility] ([id number]) [address], [facility] [address] [place] [address] Lymphocytes (Bld) [#/Vol] 2.1 10*3/uL Normal 1.0-3.5 [facility] Comment on above: Performed By: #### F EPR, 85422-3, 2857-1, 2276-4, 2284-8, 2131-10 #### [facility] ([id number]) [address], [facility] [address] [place] [address] Lymphocytes/100 WBC (Bld) 31.2 % Normal [facility] Comment on above: Performed By: #### F EPR, 46482-0, 2857-1, 2276-4, 2283-8, 2131-10 #### [facility] ([id number]) [address] [address] MCH (RBC) [Entitic mass] 30.8 pg Normal 27-34 [facility] Comment on above: Performed By: #### F EPR, 76054-4, 2857-1, 2276-4, 2283-8, 2131-10 #### [facility] ([id number]) [address] [address] MCHC (RBC) [Mass/Vol] 35.1 g/dL Normal 32-36 [facility] Comment on above: Performed By: #### F EPR, 41942-9, 2857-1, 2276-4, 2283-8, 2131-10 #### [facility] ([id number]) [address] [address] MCV (RBC) [Entitic vol] 88 fL Normal 80-100 [facility] Comment on above: Performed By: #### F EPR, 84540-8, 2857-1, 2276-4, 2284-8, 2131-10 #### [facility] ([id number]) [address] [address] [place] [address] Monocytes (Bld) [#/Vol] 0.7 10*3/uL Normal 0-0.9 [facility] Comment on above: Performed By: #### F EPR, 38092-1, 2857-1, 2276-4, 2284-8, 2131-10 #### [facility] ([id number]) [address], [facility] [address] [place] [address] Monocytes/100 WBC (Bld) 10.1 % Normal [facility] Comment on above: Performed By: #### F EPR, 29966-4, 2857-1, 2276-4, 2283-8, 2131-10 #### [facility] ([id number]) [address], [facility] [address] [place] [address] Neutrophils/100 WBC (Bld) 53.1 % Normal [facility] Comment on above: Performed By: #### F EPR, 78205-3, 2857-1, 2276-4, 2283-8, 2131-10 #### [facility] ([id number]) [address], [facility] [address] [place] [address] Platelet mean volume (Bld) [Entitic vol] 7.0 fL Normal 7-12 [facility] Comment on above: Performed By: #### F EPR, 15981-6, 2857-1, 2276-4, 2283-8, 2131-10 #### [facility] ([id number]) [address], [address] [place] [address] Platelets (Bld) [#/Vol] 348 10*3/uL Normal 150-450 [facility] Comment on above: Performed By: #### F EPR, 49377-3, 2857-1, 2276-4, 2284-8, 2131-10 #### [facility] ([id number]) [address], [address] [place] [address] RBC COUNT 3.53 X10E12/L Low 4.10-5.70 [facility] Comment on above: Performed By: #### F EPR, 00900-7, 2857-1, 2276-4, 4-8, 2131-10 #### [facility] ([id number]) [address], [address] [place] [address] WBC (Bld) [#/Vol] 6.6 10*3/uL Normal 4.0-11.0 [facility] Comment on above: Performed By: #### F EPR, 71844-9, 2857-1, 2276-4, 2283-8, 2131-10 #### [facility] ([id number]) [address] [place] [address] IRON PROFILEon 06-11-2023 Iron [Mass/Vol] 48 ug/dL Low 50-212 [facility] Comment on above: Performed By: #### P INR, 85841-2, THYR, CMP, 7-, #### [facility] ([id number]) [address], [address] [place] [address] IRON BINDING 295 ug/dL Normal 250-425 [facility] Comment on above: Performed By: #### P INR, 93142-2, THYR, CMP, 2777-, #### [facility] ([id number]) [address], [address] [place] [address] IRON SATURATION 16 % SATURATION Low 20-50 [facility] Comment on above: Performed By: #### P INR, 89137-8, THYR, CMP, 7-, #### [facility] ([id number]) [address], [address] [place] [address] Natriuretic peptide B [Mass/ Vol]on 06-11-2023 Natriuretic peptide B (Bld) [Mass/Vol] 68 pg/mL Normal <100.0 [facility] Comment on above: Performed By: #### P INR, 89288-9, THYR, CMP, 2776-02, #### [facility] ([id number]) [address], [address] [place] [address] Osmolality (U) [Osmolality]o n 06-11-2023 URINE OSMOLALITY 458 mOsm/kg H2 Normal 300-1300 [facility] Comment on above: Performed By: #### P INR, 12154-8, THYR, CMP, 2776-02, #### [facility] ([id number]) [address], [address] [place] [address] Prealbumin IA [Mass/Vol]on 0 06-11-2023 Prealbumin [Mass/Vol] 24 mg/dL Normal 18-45 [facility] Comment on above: Performed By: #### F EPR, 35765-5, 2857-1, 2276-4, 2284-8, 2131-10 #### [facility] ([id number]) [address], [address] [place] [address] SODIUMon 06-11-2023 Sodium [Moles/Vol] 130 mmol/L Low 134-146 [facility] Comment on above: Performed By: #### P INR, 18737-0, THYR, CMP, 2776-02, #### [facility] ([id number]) [address], [address] [place] [address] URINE SODIUM,RANDOMon 2023 Sodium (U) [Moles/Vol] 84 mmol/L Normal [facility] Comment on above: Performed By: #### P INR, 23306-0, THYR, CMP, 2776-02, #### [facility] ([id number]) [address], [address] [place] [address] Vitamin D+Metabolites [Mass/ Vol]on 04-27-2024 VITAMIN D 25 HYD TOT 19.2 ng/mL Low 30-100 [facility] Comment on above: Result Comment: Vitamin D status 25 [place] Vitamin D Deficiency <20 ng/mL Insufficiency 20-29 ng/mL Sufficiency 30-100 ng/mL Toxicity >100 ng/mL NOTE: A pediatric reference range has not been established by the steel tester of this kit. The [employer] recommends a Vitamin D level of = or >20ng/mL in infants and children. Performed By: #### F EPR, 24799-6, 2857-1, 2276-4, 2284-8, 2132-9 #### [facility] ([id number]) [address], [address] [place] [address] XR ANKLE LT MIN 3 VWSon 05-16 [...] Benitez MD on 06/11/2023 9:06 PM Normal [facility] XR CHEST 1 VWon 06-11-2023 XR [...] Anjelica Barros on 06/11/2023 6:42 AM Normal [facility] XR HIP LT 2-3 VIEWS W OR [...] Anjelica Barros on 06/11/2023 7:07 AM Normal [facility] Aldosterone [Mass/Vol]on ALDOSTERONE 8.8 ng/dL Normal [facility] Comment on above: Result Comment: NOTE INTERPRETIVE [...] reference intervals for this test in the [facility] Test Directory ([employer]). Performed By: [employer] [address] [place] [address] Criminal Defense Lawyer: Elías Dupree MD, PhD CLIA Number: [id number] Performed By: #### F EPR, 47225-2, 2857-1, 2276-4, 2284-8, 2132-9 #### [facility] ([id number]) [address] [facility] [place] [address] COMPREHENSIVE METABOLIC PANE [facility] 05-20-2023 Albumin [Mass/Vol] 4.0 g/dL Normal 3.2-5.3 [facility] Comment on above: Performed By: #### C RIGO BARBOZA METNF #### [facility] ([id number]) [address] [place] [address] ALP [Catalytic activity/Vol] 73 U/L Normal 39-130 [facility] Comment on above: Performed By: #### C RIGO BARBOZA METLIZETTE #### [facility] ([id number]) [address] [place] [address] ALT [Catalytic activity/Vol] 17 U/L Normal 0-40 [facility] Comment on above: Performed By: #### C RIGO BARBOZA METLIZETTE #### [facility] ([id number]) [address] [place] [address] Anion gap [Moles/Vol] 10 mmol/L Normal 5-15 [facility] Comment on above: Performed By: #### C RIGO BARBOZA METLIZETTE #### [facility] ([id number]) [address] [place] [address] AST [Catalytic activity/Vol] 19 U/L Normal 0-41 [facility] Comment on above: Performed By: #### C RIGO BARBOZA METLIZETTE #### [facility] ([id number]) [address] [place] [address] 17892 Bilirubin [Mass/Vol] 0.3 mg/dL Normal 0.3-1.2 [facility] Comment on above: Performed By: #### C RIGO BARBOZA, METLIZETTE #### [facility] ([id number]) [address] [place] [address] 43908 Calcium [Mass/Vol] 9.1 mg/dL Normal 8.5-10.5 [facility] Comment on above: Performed By: #### C RIGO BARBOZA METNF #### [facility] ([id number]) [address] [place] [address] 65718 Chloride [Moles/Vol] 92 mmol/L Low 98-109 [facility] Comment on above: Performed By: #### C RIGO BARBOZA METNF #### [facility] ([id number]) [address] [place] [address] 08769 CO2 [Moles/Vol] 27 mmol/L Normal 22-32 [facility] Comment on above: Performed By: #### C RIGO BARBOZA METNF #### [facility] ([id number]) [address] [place] [address] 26058 Creatinine [Mass/Vol] 0.77 mg/dL Normal 0.70-1.20 [facility] Comment on above: Result Comment: METH OD TRACEABLE TO IDMS STANDARD Performed By: #### C RIGO BARBOZA METNF #### [facility] ([id number]) [address] [place] [address] 83540 eGFR (CKD-EPI) NON-RACE DEPENDENT >90 Normal >59 [facility] Comment on above: Result Comment: Reported eGFR is based on the CKD-EPI 1 equation that does not use a race coefficient. Performed By: #### C RIGO BARBOZA METLIZETTE #### [facility] ([id number]) [address] [place] [address] 73450 Glucose [Mass/Vol] 100 mg/dL High 65-99 [facility] Comment on above: Performed By: #### C RIGO BARBOZA METLIZETTE #### [facility] ([id number]) [address] [place] [address] 20594 Potassium [Moles/Vol] 4.2 mmol/L Normal 3.5-5.0 [facility] Comment on above: Performed By: #### C RIGO BARBOZA METNF #### [facility] ([id number]) [address] [place] [address] Protein [Mass/Vol] 7.2 g/dL Normal 6.0-8.0 [facility] Comment on above: Performed By: #### C RIGO BARBOZA, METNF #### [facility] ([id number]) [address] [place] [address] 69753 Sodium [Moles/Vol] 129 mmol/L Low 134-146 [facility] Comment on above: Performed By: #### C JABARI, RENACT, METNF #### [facility] ([id number]) [address] [place] [address] 81931 Urea nitrogen [Mass/Vol] 11 mg/dL Normal 5-27 [facility] Comment on above: Performed By: #### C JABARI, RIGO, METNF #### [facility] ([id number]) [address] [place] [address] 61949 Corticotropin (P) [Mass/Vol] on 05-20-2023 ACTH 46.4 pg/mL Normal 7.2-63.3 [facility] Comment on above: Result Comment: NOTE ACTH Reference Range: 7-10 am: 7.2 - 63.3 pg/mL Test Performed By: [facility] [address] [place] [address] Criminal Defense Lawyer: Maureen Grace III #[id number] Performed By: #### F EPR, 72708-6, 2857-1, 2276-4, 2284-8, 2132-9 #### [facility] ([id number]) [address] [place] [address] [address] [place] [address] Cortisol [Mass/Vol]on 2023 CORTISOL 10.3 ug/dL Normal [facility] Comment on above: Result Comment: Due to the diurnal variation of cortisol levels in normal subjects, all cortisol measurements should be referenced to the time of day of sample collection. AM Cortisol Age>=6 6.7-22.4 ug/dL PM Cortisol Age>=6 <10 ug/dL Performed By: #### 2 143-6 #### [facility] ([id number]) [address], [address] [place] [address] DHEA-S [Mass/Vol]on 05-20-19 24 DHEA S 19 ug/dL Normal 5-253 [facility] Comment on above: Performed By: #### F EPR, 94626-0, 2857-1, 2276-4, 2284-8, 2132-9 #### [facility] ([id number]) [address], [address] [place] [address] METANEPH FRACT FREEon 2023 METANEPHRINE FREE <15 Normal 12-67 [facility] Comment on above: Result Comment: NOTE Reference Ranges: Hypertensive adult > or = 18 yrs old: 12-72 pg/mL Normotensive adult > or = 18 yrs old: 12-67 pg/mL Normotensive children < 18 yrs old: 10-95 pg/mL Performed By: #### C RIGO BARBOZA, BRIAN #### [facility] ([id number]) [address] [place] [address], [place] [address] NORMETANEPHRINE FREE 91 pg/mL Normal 18-101 [facility] Comment on above: Result Comment: NOTE [...] developed and its performance characteristics determined by [facility]'s Soumya Rodriguez [facility] [place] ([facility] It has not been cleared or approved by the FDA. [facility] is regulated under CLIA as qualified to perform high-complexity testing. This test is used for clinical purposes. It should not be regarded as investigational or for research. Test Performed By: [facility] [address] [place] [address] Criminal Defense Lawyer: Lewis Maxwell III, M.D. CLIA #[id number] Performed By: #### C MP, RENACT, METNF #### [facility] ([id number]) [address] [place] [address], [place] [address] RENIN ACTIVITYon 05-20-2023 RENIN ACTIVITY 0.7 ng/mL/hr Normal [facility] Comment on above: Result Comment: NOTE INTERPRETIVE [...] developed and its performance characteristics determined by [employer]. It has not been cleared or approved by the US Food and Drug Administration. This test was performed in a CLIA certified laboratory and is intended for clinical purposes. Performed By: [facility] [employer] [address] [place] [address] Criminal Defense Lawyer: Elías Dupree MD, PhD CLIA Number: [id number] Performed By: #### C MP, RENACT, METNF #### [facility] ([id number]) [address] [place] [address], [place] [address] BASIC METABOLIC PANLon 03-21 Anion gap [Moles/Vol] 8 mmol/L Normal 5-15 [facility] Comment on above: Performed By: #### P INR, 59426-4, THYR, CMP, 7-, 24348-2 #### [facility] ([id number]) [address], [address] [place] [address] Calcium [Mass/Vol] 8.9 mg/dL Normal 8.5-10.5 [facility] Comment on above: Performed By: #### P INR, 96418-0, THYR, CMP, 7-, 42261-4 #### [facility] ([id number]) [address] [place] [address] Chloride [Moles/Vol] 106 mmol/L Normal 98-109 [facility] Comment on above: Performed By: #### P INR, 33062-4, THYR, CMP, 2776-02, #### [facility] ([id number]) [address] [address] [place] [address] CO2 [Moles/Vol] 29 mmol/L Normal 22-32 [facility] Comment on above: Performed By: #### P INR, 72409-5, THYR, CMP, 2776-02, #### [facility] ([id number]) [address] [address] Creatinine [Mass/Vol] 0.67 mg/dL Normal 0.60-1.30 [facility] Comment on above: Result Comment: METH OD TRACEABLE TO IDMS STANDARD Performed By: #### P INR, 22064-8, THYR, CMP, 2776-02, #### [facility] ([id number]) [address], [address] [address] eGFR (CKD-EPI) NON-RACE DEPENDENT >90 Normal >59 [facility] Comment on above: Result Comment: Reported eGFR is based on the CKD-EPI 2020 equation that does not use a race coefficient. Performed By: #### P INR, 09068-5, THYR, CMP, 2776-02, #### [facility] ([id number]) [address] [address] Glucose [Mass/Vol] 108 mg/dL High 65-99 [facility] Comment on above: Performed By: #### P INR, 24993-7, THYR, CMP, 2776-02, #### [facility] ([id number]) [address] [address] Potassium [Moles/Vol] 3.9 mmol/L Normal 3.5-5.0 [facility] Comment on above: Performed By: #### P INR, 58394-2, THYR, CMP, 2776-02, #### [facility] ([id number]) [address], [address] [place] [address] Sodium [Moles/Vol] 143 mmol/L Normal 134-146 [facility] Comment on above: Performed By: #### P INR, 64608-6, THYR, CMP, 2776-02, #### [facility] ([id number]) [address], [address] [place] [address] Urea nitrogen [Mass/Vol] 8 mg/dL Normal 5-27 [facility] Comment on above: Performed By: #### P INR, 58757-9, THYR, CMP, 2776-02, #### [facility] ([id number]) [address], [facility] [address] [place] [address] COMPLETE BLOOD COUNTon 03-21 Erythrocyte distribution width (RBC) [Ratio] 13.3 % Normal 11.5-15.0 [facility] Comment on above: Performed By: #### P INR, 44732-7, THYR, CMP, 2776-02, #### [facility] ([id number]) [address], [address] [place] [address] Hematocrit (Bld) [Volume fraction] 29.0 % Low 39-49 [facility] Comment on above: Performed By: #### P INR, 73185-9, THYR, CMP, 2776-02, #### [facility] ([id number]) [address] [address] [place] [address] Hemoglobin (Bld) [Mass/Vol] 10.0 g/dL Low 13.0-17.0 [facility] Comment on above: Performed By: #### P INR, 12072-8, THYR, CMP, 2776-02, #### [facility] ([id number]) [address], [address] [place] [address] MCH (RBC) [Entitic mass] 30.1 pg Normal 27-34 [facility] Comment on above: Performed By: #### P INR, 85657-6, THYR, CMP, 2776-02, #### [facility] ([id number]) [address], [facility] [address] [place] [address] MCHC (RBC) [Mass/Vol] 34.5 g/dL Normal 32-36 [facility] Comment on above: Performed By: #### P INR, 01602-1, THYR, CMP, 2776-02, #### [facility] ([id number]) [address] [address] MCV (RBC) [Entitic vol] 87 fL Normal 80-100 [facility] Comment on above: Performed By: #### P INR, 94798-1, THYR, CMP, 2776-02, #### [facility] ([id number]) [address] [address] [place] [address] Platelet mean volume (Bld) [Entitic vol] 7.4 fL Normal 7-12 [facility] Comment on above: Performed By: #### P INR, 35558-6, THYR, CMP, 2776-02, #### [facility] ([id number]) [address] [address] Platelets (Bld) [#/Vol] 262 10*3/uL Normal 150-450 [facility] Comment on above: Performed By: #### P INR, 93582-4, THYR, CMP, 2776-02, #### [facility] ([id number]) [address] [address] [place] [address] RBC COUNT 3.33 X10E12/L Low 4.10-5.70 [facility] Comment on above: Performed By: #### P INR, 87821-3, THYR, CMP, 2776-02, #### [facility] ([id number]) [address] [facility], [address] [place] [address] WBC (Bld) [#/Vol] 6.4 10*3/uL Normal 4.0-11.0 [facility] Comment on above: Performed By: #### P INR, 56313-1, THYR, CMP, 2776-02, #### [facility] ([id number]) [address] [facility], [address] [place] [address] Corticotropin (P) [Mass/Vol] on 03-21-2023 ACTH 78.6 pg/mL High 7.2-63.3 [facility] Comment on above: Result Comment: NOTE ACTH Reference Range: 7-10 am: 7.2 - 63.3 pg/mL Test Performed By: [place] [address] Criminal Defense Lawyer: Maureen Grace III #[id number] Cortisol [Mass/Vol]on 2023 CORTISOL 17.0 ug/dL Normal [facility] Comment on above: Result Comment: Due to the diurnal variation of cortisol levels in normal subjects, all cortisol measurements should be referenced to the time of day of sample collection. AM Cortisol Age>=6 6.7-22.4 ug/dL PM Cortisol Age>=6 <10 ug/dL Performed By: #### P INR, 17409-8, THYR, CMP, 2776-02, #### [facility] ([id number]) [address] [facility], [address] [place] [address] DHEA-S [Mass/Vol]on 03-21-19 24 DHEA S 25 ug/dL Normal 5-253 [facility] Comment on above: Performed By: #### P INR, 67266-1, THYR, CMP, 2776-02, #### [facility] ([id number]) [address], [address] [place] [address] BASIC METABOLIC PANLon 03-20 Anion gap [Moles/Vol] 7 mmol/L Normal 5-15 [facility] Comment on above: Performed By: #### P INR, 84623-3, THYR, CMP, 2776-02, #### [facility] ([id number]) [address], [address] [place] [address] Calcium [Mass/Vol] 8.5 mg/dL Normal 8.5-10.5 [facility] Comment on above: Performed By: #### P INR, 90374-6, THYR, CMP, 2776-02, #### [facility] ([id number]) [address], [address] [place] [address] Chloride [Moles/Vol] 109 mmol/L Normal 98-109 [facility] Comment on above: Performed By: #### P INR, 59427-8, THYR, CMP, 2776-02, #### [facility] ([id number]) [address], [address] [place] [address] CO2 [Moles/Vol] 27 mmol/L Normal 22-32 [facility] Comment on above: Performed By: #### P INR, 15860-9, THYR, CMP, 2776-02, #### [facility] ([id number]) [address], [address] [place] [address] Creatinine [Mass/Vol] 0.71 mg/dL Normal 0.60-1.30 [facility] Comment on above: Result Comment: METH OD TRACEABLE TO IDMS STANDARD Performed By: #### P INR, 16404-3, THYR, CMP, 2776-02, #### [facility] ([id number]) [address], [address] [place] [address] eGFR (CKD-EPI) NON-RACE DEPENDENT >90 Normal >59 [facility] Comment on above: Result Comment: Reported eGFR is based on the CKD-EPI 2020 equation that does not use a race coefficient. Performed By: #### P INR, 19138-3, THYR, CMP, 2776-02, #### [facility] ([id number]) [address], [address] [place] [address] Glucose [Mass/Vol] 101 mg/dL High 65-99 [facility] Comment on above: Performed By: #### P INR, 13255-3, THYR, CMP, 2776-02, #### [facility] ([id number]) [address], [address] [place] [address] Potassium [Moles/Vol] 3.7 mmol/L Normal 3.5-5.0 [facility] Comment on above: Performed By: #### P INR, 66260-5, THYR, CMP, 2776-02, #### [facility] ([id number]) [address], [address] [place] [address] Sodium [Moles/Vol] 143 mmol/L Normal 134-146 [facility] Comment on above: Performed By: #### P INR, 94014-7, THYR, CMP, 2776-02, #### [facility] ([id number]) [address] [address] [place] [address] Urea nitrogen [Mass/Vol] 11 mg/dL Normal 5-27 [facility] Comment on above: Performed By: #### P INR, 94733-4, THYR, CMP, 2776-02, #### [facility] ([id number]) [address], [address] [place] [address] COMPLETE BLOOD COUNTon 03-20 Erythrocyte distribution width (RBC) [Ratio] 13.3 % Normal 11.5-15.0 [facility] Comment on above: Performed By: #### P INR, 58161-9, THYR, CMP, 2776-02, #### [facility] ([id number]) [address], [address] [place] [address] Hematocrit (Bld) [Volume fraction] 27.2 % Low 39-49 [facility] Comment on above: Performed By: #### P INR, 74559-5, THYR, CMP, 2776-02, #### [facility] ([id number]) [address] [address] [place] [address] Hemoglobin (Bld) [Mass/Vol] 9.4 g/dL Low 13.0-17.0 [facility] Comment on above: Performed By: #### P INR, 47567-5, THYR, CMP, 2776-02, #### [facility] ([id number]) [address], [address] [place] [address] MCH (RBC) [Entitic mass] 29.8 pg Normal 27-34 [facility] Comment on above: Performed By: #### P INR, 86893-9, THYR, CMP, 2776-02, #### [facility] ([id number]) [address], [address] [place] [address] MCHC (RBC) [Mass/Vol] 34.7 g/dL Normal 32-36 [facility] Comment on above: Performed By: #### P INR, 90810-5, THYR, CMP, 2776-02, #### [facility] ([id number]) [address], [address] [place] [address] MCV (RBC) [Entitic vol] 86 fL Normal 80-100 [facility] Comment on above: Performed By: #### P INR, 47105-8, THYR, CMP, 2776-02, #### [facility] ([id number]) [address], [address] [address] Platelet mean volume (Bld) [Entitic vol] 7.3 fL Normal 7-12 [facility] Comment on above: Performed By: #### P INR, 73374-1, THYR, CMP, 2776-02, #### [facility] ([id number]) [address] [address] Platelets (Bld) [#/Vol] 241 10*3/uL Normal 150-450 [facility] Comment on above: Performed By: #### P INR, 08844-8, THYR, CMP, 2776-02, #### [facility] ([id number]) [address] [address] RBC COUNT 3.17 X10E12/L Low 4.10-5.70 [facility] Comment on above: Performed By: #### P INR, 99078-7, THYR, CMP, 2776-02, #### [facility] ([id number]) [address] [address] WBC (Bld) [#/Vol] 6.2 10*3/uL Normal 4.0-11.0 [facility] Comment on above: Performed By: #### P INR, 79433-6, THYR, CMP, 2776-02, #### [facility] ([id number]) [address] [address] [place] [address] BASIC METABOLIC PANLon 03-19 Anion gap [Moles/Vol] 8 mmol/L Normal 5-15 [facility] Comment on above: Performed By: #### P INR, 53623-8, THYR, CMP, 2776-02, #### [facility] ([id number]) [address], [address] [place] [address] Calcium [Mass/Vol] 8.4 mg/dL Low 8.5-10.5 [facility] Comment on above: Performed By: #### P INR, 47670-7, THYR, CMP, 2776-02, #### [facility] ([id number]) [address], [address] [place] [address] Chloride [Moles/Vol] 107 mmol/L Normal 98-109 [facility] Comment on above: Performed By: #### P INR, 39850-4, THYR, CMP, 2776-02, #### [facility] ([id number]) [address], [address] [place] [address] CO2 [Moles/Vol] 27 mmol/L Normal 22-32 [facility] Comment on above: Performed By: #### P INR, 87592-4, THYR, CMP, 2776-02, #### [facility] ([id number]) [address], [address] [place] [address] Creatinine [Mass/Vol] 0.90 mg/dL Normal 0.60-1.30 [facility] Comment on above: Result Comment: METH OD TRACEABLE TO IDMS STANDARD Performed By: #### P INR, 94030-2, THYR, CMP, 2776-02, #### [facility] ([id number]) [address], [address] [place] [address] GFR/1.73 sq M.predicted among non-blacks MDRD (S/P/Bld) [Vol rate/Area] 90 mL/min/{1.73_m2} Normal >59 [facility] Comment on above: Result Comment: Reported eGFR is based on the CKD-EPI 2020 equation that does not use a race coefficient. Performed By: #### P INR, 47936-3, THYR, CMP, 2776-02, #### [facility] ([id number]) [address], [address] [place] [address] Glucose [Mass/Vol] 96 mg/dL Normal 65-99 [facility] Comment on above: Performed By: #### P INR, 74203-3, THYR, CMP, 2776-, #### [facility] ([id number]) [address] [facility] [address] [place] [address] Potassium [Moles/Vol] 3.8 mmol/L Normal 3.5-5.0 [facility] Comment on above: Performed By: #### P INR, 18375-5, THYR, CMP, 2776-02, #### [facility] ([id number]) [address], [address] [place] [address] Sodium [Moles/Vol] 142 mmol/L Normal 134-146 [facility] Comment on above: Performed By: #### P INR, 06427-4, THYR, CMP, 2776-02, #### [facility] ([id number]) [address], [facility] [address] [place] [address] Urea nitrogen [Mass/Vol] 21 mg/dL Normal 5-27 [facility] Comment on above: Performed By: #### P INR, 38202-0, THYR, CMP, 2776-, #### [facility] ([id number]) [address] [facility] [address] [place] [address] COMPLETE BLOOD COUNTon 03-19 Erythrocyte distribution width (RBC) [Ratio] 13.3 % Normal 11.5-15.0 [facility] Comment on above: Performed By: #### P INR, 92381-5, THYR, CMP, 2776-02, #### [facility] ([id number]) [address], [address] [place] [address] Hematocrit (Bld) [Volume fraction] 28.8 % Low 39-49 [facility] Comment on above: Performed By: #### P INR, 13356-3, THYR, CMP, 2776-02, #### [facility] ([id number]) [address], [address] [place] [address] Hemoglobin (Bld) [Mass/Vol] 9.7 g/dL Low 13.0-17.0 [facility] Comment on above: Performed By: #### P INR, 80511-6, THYR, CMP, 2776-02, #### [facility] ([id number]) [address], [address] [place] [address] MCH (RBC) [Entitic mass] 29.8 pg Normal 27-34 [facility] Comment on above: Performed By: #### P INR, 92224-3, THYR, CMP, 2776-02, #### [facility] ([id number]) [address], [address] [place] [address] MCHC (RBC) [Mass/Vol] 33.7 g/dL Normal 32-36 [facility] Comment on above: Performed By: #### P INR, 90896-2, THYR, CMP, 2776-02, #### [facility] ([id number]) [address] [address] [place] [address] MCV (RBC) [Entitic vol] 88 fL Normal 80-100 [facility] Comment on above: Performed By: #### P INR, 53562-3, THYR, CMP, 2776-02, #### [facility] ([id number]) [address], [address] [place] [address] Platelet mean volume (Bld) [Entitic vol] 7.3 fL Normal 7-12 [facility] Comment on above: Performed By: #### P INR, 03723-3, THYR, CMP, 2776-02, #### [facility] ([id number]) [address], [facility] [address] [place] [address] Platelets (Bld) [#/Vol] 234 10*3/uL Normal 150-450 [facility] Comment on above: Performed By: #### P INR, 72240-3, THYR, CMP, 2776-, #### [facility] ([id number]) [address] [facility] [address] [place] [address] RBC COUNT 3.26 X10E12/L Low 4.10-5.70 [facility] Comment on above: Performed By: #### P INR, 99974-5, THYR, CMP, 2776-02, #### [facility] ([id number]) [address] [address] [place] [address] WBC (Bld) [#/Vol] 7.6 10*3/uL Normal 4.0-11.0 [facility] Comment on above: Performed By: #### P INR, 66932-3, THYR, CMP, 2776-02, #### [facility] ([id number]) [address], [address] [place] [address] Cortisol [Mass/Vol]on 2023 CORTISOL 6.6 ug/dL Normal [facility] Comment on above: Result Comment: Due to the diurnal variation of cortisol levels in normal subjects, all cortisol measurements should be referenced to the time of day of sample collection. AM Cortisol Age>=6 6.7-22.4 ug/dL PM Cortisol Age>=6 <10 ug/dL Performed By: #### P INR, 36076-8, THYR, CMP, 2776-02, #### [facility] ([id number]) [address], [address] [place] [address] BASIC METABOLIC PANLon 03-18 Anion gap [Moles/Vol] 9 mmol/L Normal 5-15 [facility] Comment on above: Performed By: #### P INR, 72840-9, THYR, CMP, 2776-02, #### [facility] ([id number]) [address], [address] [place] [address] Calcium [Mass/Vol] 8.3 mg/dL Low 8.5-10.5 [facility] Comment on above: Performed By: #### P INR, 51488-9, THYR, CMP, 2776-02, #### [facility] ([id number]) [address], [address] [place] [address] Chloride [Moles/Vol] 105 mmol/L Normal 98-109 [facility] Comment on above: Performed By: #### P INR, 05458-2, THYR, CMP, 2776-02, #### [facility] ([id number]) [address], [address] [place] [address] CO2 [Moles/Vol] 25 mmol/L Normal 22-32 [facility] Comment on above: Performed By: #### P INR, 37575-1, THYR, CMP, 2776-02, #### [facility] ([id number]) [address], [address] [place] [address] Creatinine [Mass/Vol] 1.32 mg/dL High 0.60-1.30 [facility] Comment on above: Result Comment: METH OD TRACEABLE TO IDMS STANDARD Performed By: #### P INR, 99527-6, THYR, CMP, 2776-02, #### [facility] ([id number]) [address], [address] [place] [address] GFR/1.73 sq M.predicted among non-blacks MDRD (S/P/Bld) [Vol rate/Area] 57 mL/min/{1.73_m2} Low >59 [facility] Comment on above: Result Comment: Reported eGFR is based on the CKD-EPI 2020 equation that does not use a race coefficient. Performed By: #### P INR, 10663-9, THYR, CMP, 2776-02, #### [facility] ([id number]) [address], [address] [place] [address] Glucose [Mass/Vol] 85 mg/dL Normal 65-99 [facility] Comment on above: Performed By: #### P INR, 25192-2, THYR, CMP, 2776-02, #### [facility] ([id number]) [address] [address] [place] [address] Potassium [Moles/Vol] 4.1 mmol/L Normal 3.5-5.0 [facility] Comment on above: Performed By: #### P INR, 61444-5, THYR, CMP, 2776-02, #### [facility] ([id number]) [address], [address] [place] [address] Sodium [Moles/Vol] 139 mmol/L Normal 134-146 [facility] Comment on above: Performed By: #### P INR, 14735-0, THYR, CMP, 2776-02, #### [facility] ([id number]) [address], [address] [place] [address] Urea nitrogen [Mass/Vol] 30 mg/dL High 5-27 [facility] Comment on above: Performed By: #### P INR, 65698-8, THYR, CMP, 2776-02, #### [facility] ([id number]) [address], [address] [place] [address] COMPLETE BLOOD COUNTon 03-18 Erythrocyte distribution width (RBC) [Ratio] 14.0 % Normal 11.5-15.0 [facility] Comment on above: Performed By: #### P INR, 66536-5, THYR, CMP, 2776-02, #### [facility] ([id number]) [address], [address] [place] [address] Hematocrit (Bld) [Volume fraction] 29.6 % Low 39-49 [facility] Comment on above: Performed By: #### P INR, 95025-9, THYR, CMP, 2776-02, #### [facility] ([id number]) [address], [address] [place] [address] Hemoglobin (Bld) [Mass/Vol] 10.1 g/dL Low 13.0-17.0 [facility] Comment on above: Performed By: #### P INR, 55220-9, THYR, CMP, 2776-02, #### [facility] ([id number]) [address], [address] [place] [address] MCH (RBC) [Entitic mass] 30.3 pg Normal 27-34 [facility] Comment on above: Performed By: #### P INR, 15044-8, THYR, CMP, 2776-02, #### [facility] ([id number]) [address], [address] [place] [address] MCHC (RBC) [Mass/Vol] 34.3 g/dL Normal 32-36 [facility] Comment on above: Performed By: #### P INR, 42174-5, THYR, CMP, 2776-, #### [facility] ([id number]) [address], [address] [place] [address] MCV (RBC) [Entitic vol] 89 fL Normal 80-100 [facility] Comment on above: Performed By: #### P INR, 16551-6, THYR, CMP, 2776-, #### [facility] ([id number]) [address], [address] [place] [address] Platelet mean volume (Bld) [Entitic vol] 7.3 fL Normal 7-12 [facility] Comment on above: Performed By: #### P INR, 82824-3, THYR, CMP, 2776-, #### [facility] ([id number]) [address], [address] [place] [address] Platelets (Bld) [#/Vol] 252 10*3/uL Normal 150-450 [facility] Comment on above: Performed By: #### P INR, 92673-1, THYR, CMP, 2776-02, #### [facility] ([id number]) [address], [facility] [address] [place] [address] RBC COUNT 3.34 X10E12/L Low 4.10-5.70 [facility] Comment on above: Performed By: #### P INR, 55713-0, THYR, CMP, 2776-, #### [facility] ([id number]) [address], [facility] [address] [place] [address] WBC (Bld) [#/Vol] 9.4 10*3/uL Normal 4.0-11.0 [facility] Comment on above: Performed By: #### P INR, 18951-2, THYR, CMP, 2776-, #### [facility] ([id number]) [address], [address] [place] [address] Creatinine (U) [Mass/Vol]on 03-18-2023 URINE CREATININE,RDM 81.12 mg/dL Normal [facility] Comment on above: Performed By: #### P INR, 15464-7, THYR, CMP, 2777-1, 58633-4 #### [facility] ([id number]) [address], [address] [place] [address] MR CERVICAL SPINE WO CONTon 03-18-2023 MR [...] Anjelica Barros on 03/18/2023 5:25 AM Normal [facility] MR LUMBAR SPINE W WO CONTon [...] Tovar DO on 03/18/2023 1:57 PM Normal [facility] MR THORACIC SPINE W WO CONTo [...] Anjelica Barros on 03/18/2023 1:44 PM Normal [facility] URINALYSISon 03-18-2023 Bilirubin Ql (U) Negative Normal NEG [facility] BLOOD/HGB Large Abnormal NEG [facility] Color (U) YELLOW Normal YELLOW [facility] Glucose Ql (U) Negative Normal NEG [facility] Ketones Ql (U) Negative Normal NEG [facility] Leukocyte esterase Test strip Ql (U) Large Abnormal NEG [facility] Nitrite Ql (U) Negative Normal NEG [facility] pH (U) 6.0 [pH] Normal 5.0-8.5 [facility] Protein Ql (U) 100 mg/dL Abnormal NEG [facility] R.B.CELLS 131 /hpf High 0-5 [facility] Specific gravity (U) [Rel density] 1.020 Normal 1.003-1.035 [facility] SQUAMOUS EPITHELIUM 1 /hpf Normal 0-5 [facility] TRANSITIONAL EPITH 2 /hpf High 0 [facility] TURBIDITY HAZY Abnormal CLEAR [facility] Urobilinogen (U) [Mass/Vol] mg/dL Normal <1.1 [facility] W.B.CELLS >720 High 0-5 [facility] WBC CLUMPS MODERATE Abnormal NONE [facility] URINE SODIUM,RANDOMon 2023 Sodium (U) [Moles/Vol] 35 mmol/L Normal [facility] Comment on above: Performed By: #### P INR, 19338-9, THYR, CMP, 2777-1, 50415-2 #### [facility] ([id number]) [address] [facility], [address] [place] [address] US RETROPERITONEAL LIMITEDon 03-18-2023 US RETROPERITONEAL LIMITED [...] Clay MD on 03/18/2023 1:38 PM Normal [facility] Acetylcholine receptor qasim ng Ab (S) [Moles/Vol]on 03-17-2023 [facility] BINDING AB 0.0 nmol/L Normal 0.0-0.4 [facility] Comment on above: Result Comment: NOTE [...] developed and its performance characteristics determined by [employer]. It has not been cleared or approved by the US Food and Drug Administration. This test was performed in a CLIA certified laboratory and is intended for clinical purposes. Performed By: [employer] [address] [place] [address] Criminal Defense Lawyer: Elías Dupree MD, PhD CLIA Number: [id number] BASIC METABOLIC PANLon 03-17 Anion gap [Moles/Vol] 9 mmol/L Normal 5-15 [facility] Comment on above: Performed By: #### P INR, 04952-5, THYR, CMP, 2777-1, 14794-3 #### [facility] ([id number]) [address] [facility], [address] [place] [address] Calcium [Mass/Vol] 9.0 mg/dL Normal 8.5-10.5 [facility] Comment on above: Performed By: #### P INR, 93415-3, THYR, CMP, 2776-02, #### [facility] ([id number]) [address], [address] [place] [address] Chloride [Moles/Vol] 103 mmol/L Normal 98-109 [facility] Comment on above: Performed By: #### P INR, 41267-0, THYR, CMP, 2776-02, #### [facility] ([id number]) [address], [address] [place] [address] CO2 [Moles/Vol] 28 mmol/L Normal 22-32 [facility] Comment on above: Performed By: #### P INR, 67267-2, THYR, CMP, 2776-02, #### [facility] ([id number]) [address], [address] [place] [address] Creatinine [Mass/Vol] 0.76 mg/dL Normal 0.60-1.30 [facility] Comment on above: Result Comment: METH OD TRACEABLE TO IDMS STANDARD Performed By: #### P INR, 50989-4, THYR, CMP, 2776-02, #### [facility] ([id number]) [address], [address] [place] [address] eGFR (CKD-EPI) NON-RACE DEPENDENT >90 Normal >59 [facility] Comment on above: Result Comment: Reported eGFR is based on the CKD-EPI 2020 equation that does not use a race coefficient. Performed By: #### P INR, 47439-1, THYR, CMP, 2776-02, #### [facility] ([id number]) [address], [address] [place] [address] Glucose [Mass/Vol] 100 mg/dL High 65-99 [facility] Comment on above: Performed By: #### P INR, 46146-2, THYR, CMP, 2776-02, #### [facility] ([id number]) [address], [address] [place] [address] Potassium [Moles/Vol] 4.4 mmol/L Normal 3.5-5.0 [facility] Comment on above: Result Comment: SPEC IMEN HEMOLYZED, RESULTS INCREASED MODERATELY HEMOLYZED Performed By: #### P INR, 19185-8, THYR, CMP, 2776-02, #### [facility] ([id number]) [address] [address] Sodium [Moles/Vol] 140 mmol/L Normal 134-146 [facility] Comment on above: Performed By: #### P INR, 91092-8, THYR, CMP, 2776-02, #### [facility] ([id number]) [address] [address] Urea nitrogen [Mass/Vol] 20 mg/dL Normal 5-27 [facility] Comment on above: Performed By: #### P INR, 18384-6, THYR, CMP, 2776-02, #### [facility] ([id number]) [address] [address] COMPLETE BLOOD COUNTon 03-17 Erythrocyte distribution width (RBC) [Ratio] 13.6 % Normal 11.5-15.0 [facility] Comment on above: Performed By: #### P INR, 98416-6, THYR, CMP, 2776-02, #### [facility] ([id number]) [address] [address] Hematocrit (Bld) [Volume fraction] 32.8 % Low 39-49 [facility] Comment on above: Performed By: #### P INR, 43180-5, THYR, CMP, 2776-02, #### [facility] ([id number]) [address] [address] [place] [address] Hemoglobin (Bld) [Mass/Vol] 11.3 g/dL Low 13.0-17.0 [facility] Comment on above: Performed By: #### P INR, 30108-0, THYR, CMP, 2776-02, #### [facility] ([id number]) [address], [facility] [address] [place] [address] MCH (RBC) [Entitic mass] 29.9 pg Normal 27-34 [facility] Comment on above: Performed By: #### P INR, 06096-7, THYR, CMP, 2776-02, #### [facility] ([id number]) [address] [address] [place] [address] MCHC (RBC) [Mass/Vol] 34.4 g/dL Normal 32-36 [facility] Comment on above: Performed By: #### P INR, 25851-0, THYR, CMP, 2776-02, #### [facility] ([id number]) [address] [address] [place] [address] MCV (RBC) [Entitic vol] 87 fL Normal 80-100 [facility] Comment on above: Performed By: #### P INR, 16535-0, THYR, CMP, 2776-02, #### [facility] ([id number]) [address] [address] [place] [address] Platelet mean volume (Bld) [Entitic vol] 8.0 fL Normal 7-12 [facility] Comment on above: Performed By: #### P INR, 10604-5, THYR, CMP, 2776-02, #### [facility] ([id number]) [address] [address] [place] [address] Platelets (Bld) [#/Vol] 297 10*3/uL Normal 150-450 [facility] Comment on above: Performed By: #### P INR, 83995-7, THYR, CMP, 2776-02, #### [facility] ([id number]) [address], [address] [place] [address] RBC COUNT 3.77 X10E12/L Low 4.10-5.70 [facility] Comment on above: Performed By: #### P INR, 90276-9, THYR, CMP, 2776-02, #### [facility] ([id number]) [address], [address] [place] [address] WBC (Bld) [#/Vol] 6.5 10*3/uL Normal 4.0-11.0 [facility] Comment on above: Performed By: #### P INR, 88198-3, THYR, CMP, 2776-02, #### [facility] ([id number]) [address], [address] [place] [address] Calcium.ionized (Bld) [Mass/ Vol]on 03-17-2023 IONIZED CALCIUM 5.0 mg/dL Normal 4.5-5.3 [facility] Comment on above: Performed By: #### P INR, 24799-3, THYR, CMP, 2776-02, #### [facility] ([id number]) [address], [address] [place] [address] Glucose Glucometer (BldC) [M ass/Vol]on 03-17-2023 Glucose [Mass/Vol] 111 mg/dL High 65-99 [facility] MAGNESIUMon 03-17-2023 Magnesium [Mass/Vol] 2.9 mg/dL High 1.8-2.6 [facility] Comment on above: Performed By: #### P INR, 22952-3, THYR, CMP, 2776-02, 77266-6 #### [facility] ([id number]) [address] [facility], [address] [place] [address] MR BRAIN WO CONTon MR BRAIN WO [...] Hull MD on 03/17/2023 9:28 PM Normal [facility] Muscle specific receptor tyr osine kinase Ab (S) [Moles/Vol]on 03-17-2023 MuSK Antibody See Below Normal [facility] Comment on above: Result Comment: NOTE TEST RESULT FLAG UNIT REF.RANGE ------ MuSK Antibody 0.00 nmol/L 0.00-0.02 ADDITIONAL INFORMATION This test was developed using an analyte specific reagent. Its performance characteristics were determined by [facility] in a manner consistent with CLIA requirements. This test has not been cleared or approved by the U.S. Food and Drug Administration. Test Performed by: [facility] - [address] [address] [employer] Specialist: Hari Dejesus M.D. Ph.D.; CLIA# [id number] # NO EXTRA SST TUBES. DRAW Striated muscle Ab (S) [Tite r]on 03-17-2023 STRIATED MUSCLE AB See Below Normal [facility] Comment on above: Result Comment: NOTE [...] developed and its performance characteristics determined by [employer]. It has not been cleared or approved by the US Food and Drug Administration. This test was performed in a CLIA certified laboratory and is intended for clinical purposes. Performed By: [employer] [address] [place] [address] Criminal Defense Lawyer: Elías Dupree MD, PhD CLIA Number: [id number] # NO EXTRA SST TUBES. DRAW BASIC METABOLIC PANLon 03-16 Anion gap [Moles/Vol] 7 mmol/L Normal 5-15 [facility] Comment on above: Performed By: #### C GERONIMO, BMP #### [facility] ([id number]) [address] [facility], [address] [place] [address] Calcium [Mass/Vol] 8.9 mg/dL Normal 8.5-10.5 [facility] Comment on above: Performed By: #### C GERONIMO, BMP #### [facility] ([id number]) [address], [address] [place] [address] Chloride [Moles/Vol] 105 mmol/L Normal 98-109 [facility] Comment on above: Performed By: #### C GERONIMO, BMP #### [facility] ([id number]) [address], [address] [place] [address] CO2 [Moles/Vol] 31 mmol/L Normal 22-32 [facility] Comment on above: Performed By: #### C GERONIMO, BMP #### [facility] ([id number]) [address] [address] [place] [address] Creatinine [Mass/Vol] 0.80 mg/dL Normal 0.60-1.30 [facility] Comment on above: Result Comment: METH OD TRACEABLE TO IDMS STANDARD Performed By: #### C GERONIMO, BMP #### [facility] ([id number]) [address], [address] [place] [address] eGFR (CKD-EPI) NON-RACE DEPENDENT >90 Normal >59 [facility] Comment on above: Result Comment: Reported eGFR is based on the CKD-EPI 2020 equation that does not use a race coefficient. Performed By: #### Aries MELTON, BMP #### [facility] ([id number]) [address], [address] [place] [address] Glucose [Mass/Vol] 86 mg/dL Normal 65-99 [facility] Comment on above: Performed By: #### Areis MELTON, BMP #### [facility] ([id number]) [address], [address] [place] [address] Potassium [Moles/Vol] 4.1 mmol/L Normal 3.5-5.0 [facility] Comment on above: Performed By: #### Aries MELTON, BMP #### [facility] ([id number]) [address], [address] [place] [address] Sodium [Moles/Vol] 143 mmol/L Normal 134-146 [facility] Comment on above: Performed By: #### C GERONIMO, BMP #### [facility] ([id number]) [address] [facility] [address] [place] [address] Urea nitrogen [Mass/Vol] 14 mg/dL Normal 5-27 [facility] Comment on above: Performed By: #### C GERONIMO, BMP #### [facility] ([id number]) [address] [address] [place] [address] COMPLETE BLOOD COUNTon 03-16 Erythrocyte distribution width (RBC) [Ratio] 13.7 % Normal 11.5-15.0 [facility] Comment on above: Performed By: #### C GERONIMO, BMP #### [facility] ([id number]) [address] [address] [place] [address] Hematocrit (Bld) [Volume fraction] 32.1 % Low 39-49 [facility] Comment on above: Performed By: #### Aries MELTON, BMP #### [facility] ([id number]) [address] [address] [place] [address] Hemoglobin (Bld) [Mass/Vol] 11.1 g/dL Low 13.0-17.0 [facility] Comment on above: Performed By: #### Aries MELTON, BMP #### [facility] ([id number]) [address] [address] [place] [address] MCH (RBC) [Entitic mass] 30.1 pg Normal 27-34 [facility] Comment on above: Performed By: #### Aries MELTON, BMP #### [facility] ([id number]) [address] [address] [place] [address] MCHC (RBC) [Mass/Vol] 34.6 g/dL Normal 32-36 [facility] Comment on above: Performed By: #### C GERONIMO, BMP #### [facility] ([id number]) [address], [address] [place] [address] MCV (RBC) [Entitic vol] 87 fL Normal 80-100 [facility] Comment on above: Performed By: #### C BC, BMP #### [facility] ([id number]) [address], [address] [place] [address] Platelet mean volume (Bld) [Entitic vol] 8.0 fL Normal 7-12 [facility] Comment on above: Performed By: #### C GERONIMO, BMP #### [facility] ([id number]) [address], [address] [place] [address] Platelets (Bld) [#/Vol] 275 10*3/uL Normal 150-450 [facility] Comment on above: Performed By: #### C GERONIMO, BMP #### [facility] ([id number]) [address], [address] [place] [address] RBC COUNT 3.68 X10E12/L Low 4.10-5.70 [facility] Comment on above: Performed By: #### C GERONIMO, BMP #### [facility] ([id number]) [address], [address] [place] [address] WBC (Bld) [#/Vol] 7.0 10*3/uL Normal 4.0-11.0 [facility] Comment on above: Performed By: #### C GERONIMO, BMP #### [facility] ([id number]) [address], [address] [place] [address] COMPREHENSIVE METABOLIC PANE Reagan 03-16-2023 Albumin [Mass/Vol] 3.5 g/dL Normal 3.2-5.3 [facility] Comment on above: Performed By: #### P INR, 02806-5, THYR, CMP, 2777-1, 57500-1 #### [facility] ([id number]) [address], [address] [place] [address] ALP [Catalytic activity/Vol] 70 U/L Normal 39-130 [facility] Comment on above: Performed By: #### P INR, 25501-1, THYR, CMP, 2776-, #### [facility] ([id number]) [address], [address] [place] [address] ALT [Catalytic activity/Vol] 11 U/L Normal 0-40 [facility] Comment on above: Performed By: #### P INR, 32430-9, THYR, CMP, 2776-, #### [facility] ([id number]) [address], [address] [place] [address] Anion gap [Moles/Vol] 8 mmol/L Normal 5-15 [facility] Comment on above: Performed By: #### P INR, 62744-9, THYR, CMP, 2776-, #### [facility] ([id number]) [address], [address] [place] [address] AST [Catalytic activity/Vol] 19 U/L Normal 0-41 [facility] Comment on above: Performed By: #### P INR, 41151-0, THYR, CMP, 2776-, #### [facility] ([id number]) [address], [address] [place] [address] Bilirubin [Mass/Vol] 0.5 mg/dL Normal 0.3-1.2 [facility] Comment on above: Performed By: #### P INR, 98858-6, THYR, CMP, 2776-, #### [facility] ([id number]) [address], [address] [place] [address] Calcium [Mass/Vol] 8.7 mg/dL Normal 8.5-10.5 [facility] Comment on above: Performed By: #### P INR, 42963-6, THYR, CMP, 2776-02, #### [facility] ([id number]) [address], [address] [place] [address] Chloride [Moles/Vol] 106 mmol/L Normal 98-109 [facility] Comment on above: Performed By: #### P INR, 28377-1, THYR, CMP, 2776-02, #### [facility] ([id number]) [address], [address] [place] [address] CO2 [Moles/Vol] 28 mmol/L Normal 22-32 [facility] Comment on above: Performed By: #### P INR, 33485-0, THYR, CMP, 2776-02, #### [facility] ([id number]) [address], [address] [place] [address] Creatinine [Mass/Vol] 0.78 mg/dL Normal 0.60-1.30 [facility] Comment on above: Result Comment: METH OD TRACEABLE TO IDMS STANDARD Performed By: #### P INR, 01153-8, THYR, CMP, 2776-02, #### [facility] ([id number]) [address], [address] [place] [address] eGFR (CKD-EPI) NON-RACE DEPENDENT >90 Normal >59 [facility] Comment on above: Result Comment: Reported eGFR is based on the CKD-EPI 2021 equation that does not use a race coefficient. Performed By: #### P INR, 47412-9, THYR, CMP, 2776-02, #### [facility] ([id number]) [address], [address] [place] [address] Glucose [Mass/Vol] 87 mg/dL Normal 65-99 [facility] Comment on above: Performed By: #### P INR, 85971-5, THYR, CMP, 2776-02, #### [facility] ([id number]) [address], [address] [place] [address] Potassium [Moles/Vol] 4.2 mmol/L Normal 3.5-5.0 [facility] Comment on above: Performed By: #### P INR, 33793-8, THYR, CMP, 2776-02, #### [facility] ([id number]) [address] [place] [address] Protein [Mass/Vol] 6.2 g/dL Normal 6.0-8.0 [facility] Comment on above: Performed By: #### P INR, 28201-1, THYR, CMP, 2776-02, #### [facility] ([id number]) [address], [address] [place] [address] Sodium [Moles/Vol] 142 mmol/L Normal 134-146 [facility] Comment on above: Performed By: #### P INR, 99603-7, THYR, CMP, 2776-02, #### [facility] ([id number]) [address], [address] [place] [address] Urea nitrogen [Mass/Vol] 15 mg/dL Normal 5-27 [facility] Comment on above: Performed By: #### P INR, 56427-9, THYR, CMP, 2776-02, #### [facility] ([id number]) [address] [place] [address] MAGNESIUMon 03-16-2023 Magnesium [Mass/Vol] 1.9 mg/dL Normal 1.8-2.6 [facility] Comment on above: Performed By: #### P INR, 93205-3, THYR, CMP, 2776-02, #### [facility] ([id number]) [address] [place] [address] PHOSPHORUSon 03-16-2023 Phosphate [Mass/Vol] 3.9 mg/dL Normal 2.4-4.9 [facility] Comment on above: Performed By: #### P INR, 66955-8, THYR, CMP, 2776-02, #### [facility] ([id number]) [address] [facility], [facility] [address] [place] [address] PROTIME AND INRon 03-16-2023 INR Coag (PPP) [Relative time] 1.0 {INR} Normal 0.8-1.1 [facility] Comment on above: Performed By: #### P INR, 43654-8, THYR, CMP, 2776-02, #### [facility] ([id number]) [address] [facility] [address] [place] [address] PT Coag (PPP) [Time] 11.2 s Normal 9.8-13.2 [facility] Comment on above: Performed By: #### P INR, 44098-3, THYR, CMP, 2776-02, #### [facility] ([id number]) [address] [facility] [address] [place] [address] THYROID PROFILEon 03-16-2023 Free T4 [Mass/Vol] 0.40 ng/dL Low 0.61-1.60 [facility] Comment on above: Performed By: #### P INR, 92782-6, THYR, CMP, 2776-02, #### [facility] ([id number]) [address] [facility] [address] [place] [address] TSH 0.88 uIU/mL Normal 0.49-4.67 [facility] Comment on above: Performed By: #### P INR, 26532-1, THYR, CMP, 2776-02, #### [facility] ([id number]) [address] [facility], [address] [place] [address] TROPONIN Ion 03-16-2023 Troponin I.cardiac [Mass/Vol] ng/mL Normal 0.00-0.04 [facility] Comment on above: Performed By: #### P INR, 99105-2, THYR, CMP, 2777-1, 77157-2 #### [facility] ([id number]) [address], [address] [place] [address] URINALYSISon 03-16-2023 Bilirubin Ql (U) Negative Normal NEG [facility] BLOOD/HGB Large Abnormal NEG [facility] Color (U) YELLOW Normal YELLOW [facility] Glucose Ql (U) Negative Normal NEG [facility] Ketones Ql (U) Negative Normal NEG [facility] Leukocyte esterase Test strip Ql (U) MODERATE Abnormal NEG [facility] MUCOUS PRESENT Abnormal NONE [facility] Nitrite Ql (U) Negative Normal NEG [facility] pH (U) 6.0 [pH] Normal 5.0-8.5 [facility] Protein Ql (U) Trace Abnormal NEG [facility] R.B.CELLS 178 /hpf High 0-5 [facility] Specific gravity (U) [Rel density] 1.016 Normal 1.003-1.035 [facility] TURBIDITY CLEAR Normal CLEAR [facility] Urobilinogen (U) [Mass/Vol] mg/dL Normal <1.1 [facility] W.B.CELLS 58 /hpf High 0-5 [facility] URINE CULTUREon 03-16-2023 Bacteria identified Cx [...] <=16 F VANCOMYCIN S 1 F Susceptible [facility] Comment on above: Performed By: #### P INR, 61390-8, THYR, CMP, 2777-1, 48281-1 #### [facility] ([id number]) [address], [address] [place] [address] XR CHEST 1 VWon 03-15-2023 XR CHEST 1 VW XR CHEST 1 VW CHEST 1 VIEW HISTORY: Infection COMPARISON: 03/09/2022 FINDINGS: No focal airspace disease, pulmonary edema, pleural effusions, or pneumothorax. Normal cardiomediastinal silhouette. IMPRESSION: No acute cardiopulmonary disease. Finalized by Vernell Nash MD on 03/15/2023 9:23 PM Normal [facility] FERRITINon 01-31-2023 Ferritin [Mass/Vol] 74 ng/mL Normal 24-336 [facility] Comment on above: Performed By: #### F EPR, 99048-3, 2857-1, 2276-4, 2284-8, 2131-10 #### [facility] ([id number]) [address], [address] [place] [address] Folate [Mass/Vol]on 02-01-20 23 FOLIC ACID 6.9 ng/mL Normal >5.8 [facility] Comment on above: Result Comment: NEW REFERENCE RANGE Performed By: #### F EPR, 21779-0, 2857-1, 2276-4, 2284-8, 2131-10 #### [facility] ([id number]) [address], [address] [place] [address] IRON PROFILEon 01-31-2023 Iron [Mass/Vol] 64 ug/dL Normal 50-212 [facility] Comment on above: Performed By: #### F EPR, 38501-6, 2857-1, 2276-4, 2284-8, 2131-10 #### [facility] ([id number]) [address], [address] [place] [address] IRON BINDING 290 ug/dL Normal 250-425 [facility] Comment on above: Performed By: #### F EPR, 88667-7, 2857-1, 2276-4, 2284-8, 9 #### [facility] ([id number]) [address], [address] [place] [address] IRON SATURATION 22 % SATURATION Normal 20-50 [facility] Comment on above: Performed By: #### F EPR, 17635-8, 2857-1, 2276-4, 4-8, 2131-10 #### [facility] ([id number]) [address], [address] [place] [address] Lipid 1996 panelon 3 Cholesterol [Mass/Vol] 144 mg/dL Low 150-200 [facility] Comment on above: Performed By: #### F EPR, 68993-2, 2857-1, 2276-4, 4-8, 2131-10 #### [facility] ([id number]) [address], [address] [place] [address] Cholesterol in HDL [Mass/Vol] 58 mg/dL Normal >39 [facility] Comment on above: Result Comment: HDL <40 mg/dL - High Risk HDL > or = 40mg/dL- Desirable HDL >60 mg/dL - Negative Risk Performed By: #### F EPR, 49492-5, 2857-1, 2276-4, 2284-8, 9 #### [facility] ([id number]) [address], [address] [place] [address] Cholesterol in LDL [Mass/Vol] 57 mg/dL Normal <130 [facility] Comment on above: Result Comment: LDL <100 mg/dL - Desirable LDL >160 mg/dL - High Risk Performed By: #### F EPR, 30150-9, 2857-1, 2276-4, 2284-8, 2131-10 #### [facility] ([id number]) [address], [facility] [address] [place] [address] Cholesterol in VLDL [Mass/Vol] 29 mg/dL Normal 0-30 [facility] Comment on above: Performed By: #### F EPR, 27656-3, 2857-1, 2276-4, 2284-8, 2131-10 #### [facility] ([id number]) [address], [facility] [address] [place] [address] CHOLESTEROL:HDL 2.5 Normal 1.0-5.0 [facility] Comment on above: Performed By: #### F EPR, 73760-9, 2857-1, 2276-4, 4-8, 2131-10 #### [facility] ([id number]) [address], [facility] [address] [place] [address] Triglyceride [Mass/Vol] 147 mg/dL Normal 27-150 [facility] Comment on above: Performed By: #### F EPR, 56014-1, 2857-1, 2276-4, 2284-8, 2131-10 #### [facility] ([id number]) [address], [facility] [address] [place] [address] Prostate specific Ag [Mass/V ol]on 01-31-2023 PSA SCREEN 0.17 ng/mL Normal 0.00-4.00 [facility] Comment on above: Result Comment: The method used for this test is Camron Cecile DXI chemiluminescent immunoassay. Values obtained by different assay methods cannot be used interchangeably. Performed By: #### F EPR, 24647-8, 2857-1, 2276-4, 2284-8, 9 #### [facility] ([id number]) [address] [facility] [address], [address] [place] [address] VITAMIN B12on 01-31-2023 Cobalamin (Vitamin B12) [Mass/Vol] 273 pg/mL Normal 180-914 [facility] Comment on above: Performed By: #### F EPR, 56666-0, 2857-1, 2276-4, 2284-8, 2132-9 #### [facility] ([id number]) [address] [facility], [address] [place] [address] DRUG SCREEN, UR-RFLEX CONFIR 09-29-2022 ALCOHOL, UR. Negative Normal (< 10 - Cutof) [facility] Comment on above: Order Comment: FACIL ITY: [facility] [id number] Performed By: #### D S-M+ #### [facility] [address] [facility], [address] AMPHETAMINES, UR. Negative Normal (< 500 - Cutof) [facility] Comment on above: Order Comment: FACIL ITY: [facility] [id number] Performed By: #### D S-M+ #### [facility] [address] [facility], [address] BARBITURATES, UR. Negative Normal (< 300 - Cutof) [facility] Comment on above: Order Comment: FACIL ITY: [facility] [id number] Performed By: #### D S-M+ #### [facility] [address] [facility], [address] BENZODIAZEPINES, UR. Positive High (< 100 - Cutof) [facility] Comment on above: Order Comment: FACIL ITY: [facility] [id number] Result Comment: DAMIR ODIAZEPINES URINE SCREEN = POSITIVE Specimen sent for confirmation testing for benzodiazepines - [facility] test # [id number] Performed By: #### D S-M+ #### [facility] [address] [facility], [address] COCAINE METAB. UR. Negative Normal (< 150 - Cutof) [facility] Comment on above: Order Comment: FACIL ITY: [facility] [id number] Performed By: #### D S-M+ #### [facility] [address] [facility], [address] CREAT, URINE 120.53 MG/DL Normal (20.00 - 370.0) [facility] Comment on above: Order Comment: FACIL ITY: [facility] [id number] Performed By: #### D S-M+ #### [facility] [address] [facility], [address] FENTANYL, UR SCREEN Negative Normal (< 1.0 - Cutof) [facility] Comment on above: Order Comment: FACIL ITY: [facility] [id number] Performed By: #### Emmanuel S-M+ #### [facility] [address] [facility], [address] HEROIN METAB. UR. Negative Normal (< 10 - Cutof) [facility] Comment on above: Order Comment: FACIL ITY: [facility] [id number] Performed By: #### Emmanuel S-M+ #### [facility] [address] [facility], [address] METHADONE METAB. UR. Negative Normal (< 100 - Cutof) [facility] Comment on above: Order Comment: FACIL ITY: [facility] [id number] Performed By: #### D S-M+ #### [facility] [address] [facility], [address] OPIATES, UR. Positive High (< 100 - Cutof) [facility] Comment on above: Order Comment: FACIL ITY: [facility] [id number] Result Comment: OPIA UDAY URINE SCREEN = POSITIVE Specimen sent for confirmation testing for opiates to include oxycodone - [facility] test # [id number] Performed By: #### D S-M+ #### [facility] [address] [place], [address] OXYCODONE, UR. Positive High (< 100 - Cutof) [facility] Comment on above: Order Comment: FACIL ITY: [facility] [id number] Result Comment: OXYC ODONE URINE SCREEN = POSITIVE Specimen sent for confirmation testing for opiates to include oxycodone - [facility] test # [id number] Performed By: #### D S-M+ #### [facility] [address] [place], [address] pH (U) 5.0 [pH] Normal (5.0 - 9.0) [facility] Comment on above: Order Comment: FACIL ITY: [facility] [id number] Performed By: #### D S-M+ #### [facility] [address] [place], [address] PHENCYCLIDINE, UR. Negative Normal (< 25 - Cutof) [facility] Comment on above: Order Comment: FACIL ITY: [facility] [id number] Performed By: #### D S-M+ #### [facility] [address] [place], [address] THC METABOLITE, UR. Negative Normal (< 20 - Cutof) [facility] Comment on above: Order Comment: FACIL ITY: [facility] [id number] Performed By: #### D S-M+ #### [facility] [address] [place], [address] TRAMADOL, UR SCREEN Negative Normal (< 200 - Cutof) [facility] Comment on above: Order Comment: FACIL ITY: [facility] [id number] Result Comment: This drug testing is for medical treatment only. Analysis was performed as non-forensic testing and the results should be used only by healthcare providers to render diagnosis or treatment, or to monitor the progress of medical conditions. Performed By: #### D S-M+ #### [facility] [address] [place], [address] BASIC MET PANEL W/GFRon 07-3 -2022 Calcium [Mass/Vol] 8.8 mg/dL Normal (8.6 - 10.6) [facility] Comment on above: Performed By: #### C BC/D, CHEM-B #### [facility] [address] [place], [address] Chloride [Moles/Vol] 98 mmol/L Normal (98 - 107) [facility] Comment on above: Performed By: #### C BC/D, CHEM-B #### [facility] [address] [place], [address] CO2 [Moles/Vol] 34 mmol/L High (22 - 30) [facility] Comment on above: Performed By: #### C BC/D, CHEM-B #### [facility] [address] [place], [address] Creatinine [Mass/Vol] 0.75 mg/dL Normal (0.66 - 1.25) [facility] Comment on above: Performed By: #### C BC/D, CHEM-B #### [facility] [address] [place], [address] GFR- AMER 123.2 ML/M1.7 Normal (60.0 - 161.8) [facility] Comment on above: Performed By: #### C BC/D, CHEM-B #### [facility] [address] [place], [address] GFR-NON AFRIC-AMER 101.8 ML/M1.7 Normal (60.0 - 133.8) [facility] Comment on above: Performed By: #### C BC/D, CHEM-B #### [facility] [address] [place], [address] Glucose [Mass/Vol] 132 mg/dL High (74 - 106) [facility] Comment on above: Performed By: #### Aries MELTON/Emmanuel, CHEM-B #### [facility] [address] [place], [address] Potassium [Moles/Vol] 4.1 mmol/L Normal (3.5 - 5.1) [facility] Comment on above: Performed By: #### Aries MELTON/Emmanuel, CHEM-B #### [facility] [address] [place], [address] Sodium [Moles/Vol] 140 mmol/L Normal (137 - 145) [facility] Comment on above: Performed By: #### Aries MELTON/Emmanuel, CHEM-B #### [facility] [address] [place], [address] Urea nitrogen [Mass/Vol] 13 mg/dL Normal (9 - 20) [facility] Comment on above: Performed By: #### Aries MELTON/Emmanuel, CHEM-B #### [facility] [address] [place], [address] CBC WITH DIFFon 09-13-2022 ABS BASOPHIL 0.07 x10^3ul Normal (0.00 - 0.16) [facility] Comment on above: Order Comment: FACIL ITY: DR CAST - OFFICE [id number] Performed By: #### Aries MELTON/Emmanuel, CHEM-B #### [facility] [address] [place], [address] ABS EOSINOPHIL 0.23 x10^3ul Normal (0.00 - 0.40) [facility] Comment [facility]: Order Comment: FACIL ITY: DR CAST - OFFICE [id number] Performed By: #### Aries MELTON/Emmanuel, CHEM-B #### [facility] [address] [place], [address] ABS IMMATURE GRANS 0.02 x10^3ul Normal (0.00 - 0.11) [facility] Comment on above: Order Comment: FACIL ITY: DR CAST - OFFICE [id number] Performed By: #### C BC/D, CHEM-B #### [facility] [address] [place], [address] ABS LYMPHOCYTE 1.95 x10^3ul Normal (0.96 - 5.40) [facility] Comment on above: Order Comment: FACIL ITY: DR CAST - OFFICE [id number] Performed By: #### C BC/D, CHEM-B #### [facility] [address] [place], [address] ABS MONOCYTE 0.63 x10^3ul Normal (0.10 - 1.00) [facility] Comment on above: Order Comment: FACIL ITY: DR CAST - OFFICE [id number] Performed By: #### C BC/D, CHEM-B #### [facility] [address] [place], [address] ABS NEUTROPHIL 2.41 x10^3ul Normal (1.50 - 7.00) [facility] Comment on above: Order Comment: FACIL ITY: DR CAST - OFFICE [id number] Performed By: #### C BC/D, CHEM-B #### [facility] [address] [place], [address] Basophils/100 WBC (Bld) 1.3 % Normal () [facility] Comment on above: Order Comment: FACIL ITY: DR CAST - OFFICE [id number] Performed By: #### C BC/D, CHEM-B #### [facility] [address] [place], [address] Eosinophils/100 WBC (Bld) 4.3 % Normal () [facility] Comment on above: Order Comment: FACIL ITY: DR CAST - OFFICE [id number] Performed By: #### C BC/D, CHEM-B #### [facility] [address] [place], [address] Hematocrit (Bld) [Volume fraction] 33.1 % Low (42.0 - 52.0) [facility] Comment on above: Order Comment: FACIL ITY: DR CAST - OFFICE [id number] Performed By: #### C BC/D, CHEM-B #### [facility] [address] [place], [address] Hemoglobin (Bld) [Mass/Vol] 10.6 g/dL Low (14.0 - 18.0) [facility] Comment on above: Order Comment: FACIL ITY: DR CAST - OFFICE [id number] Performed By: #### C BC/D, CHEM-B #### [facility] [address] [place], [address] IMMATURE GRANS (IG) 0.4 % Normal () [facility] Comment on above: Order Comment: FACIL ITY: DR CAST - OFFICE [id number] Performed By: #### C BC/D, CHEM-B #### [facility] [address] [place], [address] LYMPS 36.7 % Normal () [facility] Comment on above: Order Comment: FACIL ITY: DR CAST - OFFICE [id number] Performed By: #### C BC/D, CHEM-B #### [facility] [address] [place], [address] MCH (RBC) [Entitic mass] 29.8 pg Normal (27.0 - 33.0) [facility] Comment on above: Order Comment: FACIL ITY: DR CAST - OFFICE [id number] Performed By: #### C BC/D, CHEM-B #### [facility] [address] [place], [address] MCHC (RBC) [Mass/Vol] 32.0 g/dL Normal (30.0 - 37.0) [facility] Comment on above: Order Comment: FACIL ITY: DR CAST - OFFICE [id number] Performed By: #### C BC/D, CHEM-B #### [facility] [address] [place], [address] MCV (RBC) [Entitic vol] 93.0 fL Normal (80.0 - 94.0) [facility] Comment on above: Order Comment: FACIL ITY: DR CAST - OFFICE [id number] Performed By: #### C BC/D, CHEM-B #### [facility] [address] [place], [address] MONOS 11.9 % Normal () [facility] Comment on above: Order Comment: FACIL ITY: DR CAST - OFFICE [id number] Performed By: #### C BC/D, CHEM-B #### [facility] [address] [place], [address] PLT 292 x10^3ul Normal (130 - 400) [facility] Comment on above: Order Comment: FACIL ITY: DR CAST - OFFICE [id number] Performed By: #### C BC/D, CHEM-B #### [facility] [address] [place], [address] RBC 3.56 x10^6ul Low (4.70 - 6.10) [facility] Comment on above: Order Comment: FACIL ITY: DR CAST - OFFICE [id number] Performed By: #### C BC/D, CHEM-B #### [facility] [address] [place], [address] RDW-SD 45.2 fl Normal (37.0 - 49.0) [facility] Comment on above: Order Comment: FACIL ITY: DR CAST - OFFICE [id number] Performed By: #### C BC/D, CHEM-B #### [facility] [address] [place], [address] SEGS 45.4 % Normal () [facility] Comment on above: Order Comment: FACIL ITY: DR CAST - OFFICE [id number] Performed By: #### C BC/D, CHEM-B #### [facility] [address] [place], [address] WBC 5.31 x10^3ul Normal (3.80 - 10.60) [facility] Comment on above: Order Comment: FACIL ITY: DR CAST - OFFICE [id number] Performed By: #### C BC/D, CHEM-B #### [facility] [address] [facility], [address] DRUG SCREEN, UR-RFLEX CONFIR 06-29-2022 ALCOHOL, UR. Negative Normal (< 10 - Cutof) [facility] Comment on above: Order Comment: FACIL ITY: [facility] [id number] Performed By: #### D S-M+ #### [facility] [address] [facility], [address] AMPHETAMINES, UR. Negative Normal (< 500 - Cutof) [facility] Comment on above: Order Comment: FACIL ITY: [facility] [id number] Performed By: #### D S-M+ #### [facility] [address] [facility], [address] BARBITURATES, UR. Negative Normal (< 300 - Cutof) [facility] Comment on above: Order Comment: FACIL ITY: [facility] [id number] Performed By: #### D S-M+ #### [facility] [address] [facility], [address] BENZODIAZEPINES, UR. Positive High (< 100 - Cutof) [facility] Comment on above: Order Comment: FACIL ITY: [facility] [id number] Result Comment: DAMIR ODIAZEPINES URINE SCREEN = POSITIVE Specimen sent for confirmation testing for benzodiazepines - [facility] test # [id number] Performed By: #### D S-M+ #### [facility] [address] [facility], [address] COCAINE METAB. UR. Negative Normal (< 150 - Cutof) [facility] Comment on above: Order Comment: FACIL ITY: [facility] [id number] Performed By: #### D S-M+ #### [facility] [address] [place], [address] CREAT, URINE 75.27 MG/DL Normal (20.00 - 370.0) [facility] Comment on above: Order Comment: FACIL ITY: [facility] [id number] Performed By: #### D S-M+ #### [facility] [address] [place], [address] FENTANYL, UR SCREEN Negative Normal (< 1.0 - Cutof) [facility] Comment on above: Order Comment: FACIL ITY: [facility] [id number] Performed By: #### D S-M+ #### [facility] [address] [place], [address] HEROIN METAB. UR. Negative Normal (< 10 - Cutof) [facility] Comment on above: Order Comment: FACIL ITY: [facility] [id number] Performed By: #### D S-M+ #### [facility] [address] [place], [address] METHADONE METAB. UR. Negative Normal (< 100 - Cutof) [facility] Comment on above: Order Comment: FACIL ITY: [facility] [id number] Performed By: #### D S-M+ #### [facility] [address] [place], [address] OPIATES, UR. Positive High (< 100 - Cutof) [facility] Comment on above: Order Comment: FACIL ITY: [facility] [id number] Result Comment: OPIA UDAY URINE SCREEN = POSITIVE Specimen sent for confirmation testing for opiates to include oxycodone - [facility] test # [id number] Performed By: #### D S-M+ #### [facility] [facility] [address] [place], [address] OXYCODONE, UR. Positive High (< 100 - Cutof) [facility] Comment on above: Order Comment: FACIL ITY: [facility] [id number] Result Comment: OXYC ODONE URINE SCREEN = POSITIVE Specimen sent for confirmation testing for opiates to include oxycodone - [facility] test # [id number] Performed By: #### D S-M+ #### [facility] [address] [place], [address] pH (U) 6.0 [pH] Normal (5.0 - 9.0) [facility] Comment on above: Order Comment: FACIL ITY: [facility] [id number] Performed By: #### D S-M+ #### [facility] [address] [facility], [address] PHENCYCLIDINE, UR. Negative Normal (< 25 - Cutof) [facility] Comment on above: Order Comment: FACIL ITY: [facility] [id number] Performed By: #### D S-M+ #### [facility] [address] [facility], [address] THC METABOLITE, UR. Negative Normal (< 20 - Cutof) [facility] Comment on above: Order Comment: FACIL ITY: [facility] [id number] Performed By: #### D S-M+ #### [facility] [address] [place], [address] TRAMADOL, UR SCREEN Negative Normal (< 200 - Cutof) [facility] Comment on above: Order Comment: FACIL ITY: [facility] [id number] Result Comment: This drug testing is for medical treatment only. Analysis was performed as non-forensic testing and the results should be used only by healthcare providers to render diagnosis or treatment, or to monitor the progress of medical conditions. Performed By: #### D S-M+ #### [facility] [address] [place], [address] XR FOOT LT MIN 3 VIEWSon XR FOOT LT MIN 3 VIEWS EXAM: XR FOOT LT MIN 3 VIEWS Please see tibia-fibula x-rays of same day Electronically authenticated by: JESSA ADAM Date: 2022-04-19 17:08 Normal [facility] XR HUMERUS LT MIN 2Von 04-19 [...] by: JESSA ADAM Date: 2022-04-19 16:58 Normal [facility] XR TIB_FIB LT 2Von XR TIB_FIB LT [...] by: JESSA ADAM Date: 2022-04-19 17:07 Normal [facility] CBC AUTO DIFFon 01-24-2022 BASO # 0.1 103/ul Normal 0.0-0.1 [facility] Comment on above: Performed By: #### C BC #### [facility] [address] [place] [address] Dr. Terence Hilario Basophils/100 WBC (Bld) 0.5 % Normal 0.2-2.0 [facility] Comment on above: Performed By: #### C BC #### [facility] [address] [place] [address] Dr. Terence Hilario EO # 0.2 103/ul Normal 0.0-0.7 [facility] Comment on above: Performed By: #### C BC #### [facility] [address] [place] [address] Dr. Terence Hilario Eosinophils/100 WBC (Bld) 1.8 % Normal 0.9-7.0 [facility] Comment on above: Performed By: #### C BC #### [facility] [address] [place] [address] Dr. Terence Hilario Erythrocyte distribution width (RBC) [Ratio] 13.4 % Normal 11.0-15.0 [facility] Comment on above: Performed By: #### C BC #### [facility] [address] [place] [address] Dr. Terence Hilario Hematocrit (Bld) [Volume fraction] 34.4 % Critically low 42.0-54.0 [facility] Comment on above: Performed By: #### C BC #### [facility] [address] [place] [address] Dr. Terence Hilario Hemoglobin (Bld) [Mass/Vol] 11.4 g/dL Critically low 14.0-18.0 [facility] Comment on above: Performed By: #### C BC #### [facility] [address] [place] [address] Dr. Terence Hilario IG # 0.04 10e3/ul Critically high 0.00-0.03 [facility] Comment on above: Performed By: #### C BC #### [facility] [address] [place] [address] Dr. Terence Hilario IG % 0.3 % Normal 0.0-0.5 [facility] Comment on above: Performed By: #### C BC #### [facility] [address] [place] [address] Dr. Terence Hilario LYMPH # 1.6 103/ul Normal 1.2-3.8 [facility] Comment on above: Performed By: #### C BC #### [facility] [address] [place] [address] Dr. Terence Hilario Lymphocytes/100 WBC (Bld) 12.6 % Critically low 20.5-60.0 [facility] Comment on above: Performed By: #### C BC #### [facility] [address] [place] [address] Dr. Terence Hilario MANUAL DIFF REQ NO Normal [facility] Comment on above: Performed By: #### C BC #### [facility] [address] [place] [address] Dr. Terence Hilario MCH (RBC) [Entitic mass] 30.5 pg Normal 25.9-34.0 [facility] Comment on above: Performed By: #### C BC #### [facility] [address] [place] [address] Dr. Terence Hilario MCHC (RBC) [Mass/Vol] 33.1 g/dL Normal 29.9-35.2 [facility] Comment on above: Performed By: #### C BC #### [facility] [facility] [address] [place] [address] Dr. Terence Hilario MCV (RBC) [Entitic vol] 92.0 fL Normal 80.0-94.0 [facility] Comment on above: Performed By: #### C BC #### [facility] [address] [place] [address] Dr. Terence Hilario MONO # 1.0 103/ul Critically high 0.3-0.8 [facility] Comment on above: Performed By: #### C BC #### [facility] [address] [place] [address] Dr. Terence Hilario Monocytes/100 WBC (Bld) 7.7 % Normal 1.7-12.0 [facility] Comment on above: Performed By: #### C BC #### [facility] [address] [place] [address] Dr. Terence Hilario NEUT # 9.5 103/ul Critically high 1.4-6.5 [facility] Comment on above: Performed By: #### C BC #### [facility] [address] [place] [address] Dr. Terence Hilario Neutrophils/100 WBC (Bld) 77.1 % Critically high 43.0-75.0 [facility] Comment on above: Performed By: #### C BC #### [facility] [address] [address] [address] Terence Hilario Platelet mean volume (Bld) [Entitic vol] 8.6 fL Critically low 9.5-13.5 [facility] Comment on above: Performed By: #### C BC #### [facility] [address] [address] [address] Terence Hilario PLT 241 103/ul Normal 150-450 [facility] Comment on above: Performed By: #### C BC #### [facility] [id number] Terence Hilario RBC 3.74 106/ul Critically low 4.70-6.10 [facility] Comment on above: Performed By: #### C BC #### [facility] [id number] Terence Hilario WBC 12.3 103/ul Critically high 4.0-11.0 [facility] Comment on above: Performed By: #### C BC #### [facility] [address] [place], [place] [id number] Dr. Terence Hilario CT HEAD WO CONon [...] LALITO SHOOK Date: 2022-01-24 10:20 Normal [facility] PROF 14(COMP METB)on 022 Albumin [Mass/Vol] 3.4 g/dL Normal 3.4-5.0 [facility] Comment on above: Performed By: #### H GB #### [facility] [address] [place] [address] Dr. Terence Hilario Albumin/Globulin [Mass ratio] 0.9 {ratio} Normal [facility] Comment on above: Performed By: #### H GB #### [facility] [address] [place] [address] Dr. Terence Hilario ALP [Catalytic activity/Vol] 73 U/L Normal 46-116 [facility] Comment on above: Performed By: #### H GB #### [facility] [address] [address] [address] Terence Hilario ALT [Catalytic activity/Vol] 24 U/L Normal 16-63 [facility] Comment on above: Performed By: #### H GB #### [facility] [address] [address] [address] Terence Hilario Anion gap [Moles/Vol] 12.4 mmol/L Normal [facility] Comment on above: Performed By: #### H GB #### [facility] [address] [address] [address] Terence Hilario AST [Catalytic activity/Vol] 21 U/L Normal 15-37 [facility] Comment on above: Performed By: #### H GB #### [facility] [address] [address] [address] Terence Hilario Bilirubin [Mass/Vol] 0.3 mg/dL Normal 0.2-1.0 [facility] Comment on above: Performed By: #### H GB #### [facility] [address] [address] [address] Terence Hilario Calcium [Mass/Vol] 8.7 mg/dL Normal 8.5-10.1 [facility] Comment on above: Performed By: #### H GB #### [facility] [address] [address] [address] Terence Hilario Chloride [Moles/Vol] 102 mmol/L Normal 98-107 [facility] Comment on above: Performed By: #### H GB #### [facility] [address] [address] [address] Terence Hilario CO2 [Moles/Vol] 31.5 mmol/L Normal 21.0-32.0 [facility] Comment on above: Performed By: #### H GB #### [facility] [address] [place] [address] Dr. Terence Hilario Creatinine [Mass/Vol] 1.09 mg/dL Normal 0.70-1.30 [facility] Comment on above: Performed By: #### H GB #### [facility] [address] [place] [address] Dr. Terence Hilario EGFR-AF SAMOAN >60 Normal >=60 [facility] Comment on above: Performed By: #### H GB #### [facility] [address] [place] [address] Dr. Terence Hilario EGFR-NON AF SAMOAN >60 Normal >=60 [facility] Comment on above: Performed By: #### H GB #### [facility] [address] [place] [address] Dr. Terence Hilario Globulin (S) [Mass/Vol] 3.8 g/dL Normal [facility] Comment on above: Performed By: #### H GB #### [facility] [address] [place] [address] Dr. Terence Hilario Glucose [Mass/Vol] 158 mg/dL Critically high 74-106 [facility] Comment on above: Performed By: #### H GB #### [facility] [address] [place] [address] Dr. Terence Hilario Potassium [Moles/Vol] 3.9 mmol/L Normal 3.5-5.1 [facility] Comment on above: Performed By: #### H GB #### [facility] [address] [address] [address] Terence Hilario Protein [Mass/Vol] 7.2 g/dL Normal 6.4-8.2 [facility] Comment on above: Performed By: #### H GB #### [facility] [address] [address] [address] Terence Hilario Sodium [Moles/Vol] 142 mmol/L Normal 136-145 [facility] Comment on above: Performed By: #### H GB #### [facility] [address] [address] [address] Terence Hilario Urea nitrogen [Mass/Vol] 12.0 mg/dL Normal 7.0-18.0 [facility] Comment on above: Performed By: #### H GB #### [facility] [address] [address] [address] Terence Hilario Urea nitrogen/Creatinine [Mass ratio] 11.0 mg/mg Normal [facility] Comment on above: Performed By: #### H GB #### [facility] [address] [address] [address] Terence Hilario DRUG SCREEN, UR-RFLEX CONFIR [facility] 12-30-2021 ALCOHOL, UR. Negative Normal (< 10 - Cutof) [facility] Comment on above: Order Comment: FACIL ITY: [facility] [id number] Performed By: #### D S-M+ #### [facility] [address] [place], [id number] AMPHETAMINES, UR. Negative Normal (< 500 - Cutof) [facility] Comment on above: Order Comment: FACIL ITY: [facility] [id number] Performed By: #### D S-M+ #### [facility] [address] [place], [address] BARBITURATES, UR. Negative Normal (< 300 - Cutof) [facility] Comment on above: Order Comment: FACIL ITY: [facility] [id number] Performed By: #### Emmanuel S-M+ #### [facility] [address] [facility], [address] BENZODIAZEPINES, UR. Positive High (< 100 - Cutof) [facility] Comment on above: Order Comment: [facility] [id number] Result Comment: DAMIR ODIAZEPINES URINE SCREEN = POSITIVE Specimen sent for confirmation testing for benzodiazepines - [facility] test # [id number] Performed By: #### D S-M+ #### [facility] [address] [facility], [address] COCAINE METAB. UR. Negative Normal (< 150 - Cutof) [facility] Comment on above: Order Comment: FACIL ITY: [facility] [id number] Performed By: #### Emmanuel S-M+ #### [facility] [address] [facility], [address] CREAT, URINE 80.50 MG/DL Normal (20.00 - 370.0) [facility] Comment on above: Order Comment: FACIL ITY: [facility] [id number] Performed By: #### Emmanuel S-M+ #### [facility] [address] [facility], [address] FENTANYL, UR SCREEN Negative Normal (< 1.0 - Cutof) [facility] Comment on above: Order Comment: [facility]IL ITY[facility] [id number] Performed By: #### D S-M+ #### [facility] [address] [facility], [address] HEROIN METAB. UR. Negative Normal (< 10 - Cutof) [facility] Comment on above: Order Comment: FACIL ITY[facility] [id number] Performed By: #### Emmanuel S-M+ #### [facility] [address] [place], [address] METHADONE METAB. UR. Negative Normal (< 100 - Cutof) [facility] Comment on above: Order Comment: FACIL ITY: [facility] [id number] Performed By: #### D S-M+ #### [facility] [address] [place], [address] OPIATES, UR. Positive High (< 100 - Cutof) [facility] Comment on above: Order Comment: FACIL ITY: [facility] [id number] Result Comment: OPIA UDAY URINE SCREEN = POSITIVE Specimen sent for confirmation testing for opiates to include oxycodone - [facility] test # [id number] Performed By: #### D S-M+ #### [facility] [address] [place], [address] OXYCODONE, UR. Positive High (< 100 - Cutof) [facility] Comment on above: Order Comment: FACIL ITY: [facility] [id number] Result Comment: OXYC ODONE URINE SCREEN = POSITIVE Specimen sent for confirmation testing for opiates to include oxycodone - [facility] test # [id number] Performed By: #### D S-M+ #### [facility] [address] [place], [address] pH (U) 5.0 [pH] Normal (5.0 - 9.0) [facility] Comment on above: Order Comment: FACIL ITY: [facility] [id number] Performed By: #### D S-M+ #### [facility] [address] [place], [address] PHENCYCLIDINE, UR. Negative Normal (< 25 - Cutof) [facility] Comment on above: Order Comment: FACIL ITY: [facility] [id number] Performed By: #### D S-M+ #### [facility] [address] [place], [address] THC METABOLITE, UR. Negative Normal (< 20 - Cutof) [facility] Comment on above: Order Comment: FACIL ITY: [facility] [id number] Performed By: #### D S-M+ #### [facility] [address] [facility], [address] TRAMADOL, UR SCREEN Negative Normal (< 200 - Cutof) [facility] Comment on above: Order Comment: FACIL ITY: [facility] [id number] Result Comment: This drug testing is for medical treatment only. Analysis was performed as non-forensic testing and the results should be used only by healthcare providers to render diagnosis or treatment, or to monitor the progress of medical conditions. Performed By: #### D S-M+ #### [facility] [address] [facility], [address] Coding Summary.on 12-09-2021 Coding Summary. CD:[id number] Gh 0bWw+PGhlYWQ+OE8UGERfE 50aeDYibJ5JK0rBPN4BBLZ RJREAAN0HFL8liWR6IUxwB 2VybiAv NnlvlDEoTS98YXo4FOJ5aW ddHVgzeF0hrAYxY6k2VpWc HU17wK66QBkjYOYhKdS2Rz ZpbjsgbWFy P6epCrWseURdXng+PHRhYm xlIHdpZHRoPScxMDAlJyBz pAouOD5kOh8cJNGvEDBumY xhcHNlOiBj u1tzLIReKYqkDR2vgVveF0 YqtAD6GWKsu7o6Dp76tLY+ HAOsNIX8iDfbICqny038Qm Fwz4ciVQW6 nAUlCVujPSJ1V20jo4A6ZF YaUCDuWRT8dJP9bO6tyZio xiujT8JewMWoKoM2FBR1tP JciT2bjZde poxqcQ1zMrx+B23UTP5EIE ZEOF1TAwo6C6CtYoiaaBB+ XD43VEVkFP50hFRygLXzv9 uvhEg5AuOl NSCrOVF9zMmsZHllj5LqFZ TgW05tdUXlk8N8XKJvcQja vLMlUjAuvCR3jW5rUBntrn lih0alrybo Jgiuy5oqzy17pM70M45dRL myTXZpEBP7MMPhFBLfyMsg lj7aqX7vEw8+QTvwz3yvd6 gbkTa6CnLv WWNsraJfcSecKVF3l0KxCk 98I5LllXlaa8MwGnq5go90 oZKcu6U4nLZ9QWygQBHmeF 1cYGhbUjF8 LRKjGdAnrX68rHSpMBehUy 2pqJxypBnpCA6jBEZyjkcf ASWscY8uRAIrbSOgrVlzQX 4wNTBpbjtm w563JiWqBAM8SWTmlNUoY7 NlzN4fPdWoCGNvMKVcS0Zj gNKhFSbyW607HOoyIlU0BU TqhuEuB9Mq TEXkcEhxBsL3e2T2Ke8St2 XqqafeRJL2IPriQMTcHgP2 SlMkLgI7S9HwDqo4VIOhrZ caZF8oW8Wo GWKnjzsmhtsanZA9TXRiVO DjkT75eEIqRUexPo4yj6L6 i803SLDnZJCtzN69Ab5wgY ogMTBwdCBU vW0wwqtsw9tgxpldMzHtBL KaDXi6COh9IAXwpOqzDnPs GOK4XvV1MUW7yOBziY6zeY iehogufT6h Oyc+S38nfT7tTHW0XUU5vr kiBQSvtaSwVR38TA03T1Nd PjwvdGFibGU+PGRpdiBzdH njFN3hVdPs v6jav4GmDFibK0KwWKEvKZ fnNbs4OHOiYFL6vIK5wY6h JBSwKFedb7J3iMR3C3Zxbx Sgry0wx5sm IZVqMJsoP85ceXBov9A6SW TeiDS0AMFfnBdpFcYryS50 Oyc+WPTwfTazl0JwNdrkn1 prn4zivNv2 KgNlBSUkhrRhsIewHBQ7q2 AvVm97E83gODgaCHGdRGXz EHYbXFUjpPqozr7gxC7mUt 8+PGNvbCB3 iGB1dM7tWKDzHkT0IZfbU4 35AqYolPAhLsxzy7rcs2ev xVp0ItLbRLKnniYcwSlmOH U0u9SsYb76 J24rZMclTEGpUMYvMEQzMG IrgEkbdy6bsZ6oIu0+PC9j x6tlri67cJ99xFC+PHRkIH B5fGkkGZku RBMvjC0jDZbiYlS8SBJvHb YrbT31eMHzZIkoZz0nzQxa fDaxHM5bQPOfbxxvp189Ie Uqh4wnRYYx iDZaTKxjOED4Y10rb8B9EU EgVDKiFTS4sYW6vU8ufUbu bjogbGVmdDsgdmVydGljYW oqGAdqA803 IHRvcDsnPlBhdGllbnQgTm VrQYv4U6ZuZvk1BRRwxKtn NV1fjIXcCLixNw0mgDanzB fpCF2wGVXu lwlpv002TkOqm5ubYXEcyU TnUYahUBY5X59sr9S0OOOa OTVfNFQ7gEA7eR8pzJiwre ogbGVmdDsg oaPndQymMGqiNLxmQ240OD RvcDsnPkJpcnRoIERhdGU6 PZ71DT81vGJqw4J5hSZ2V8 BhZGRpbmct xfemsTC6OCAkRSLpuZ76Gx 5jgTlhXe7fHTTiBDE9WBPe lZKsG7TqxK1eNiYtTZMmFL ZoW1UeyOIp SEayZ873SItwQjU8HIUzdj FeF3ReXPJenIygPcB8k5S9 Yt2OO5B9GY20BB74cAEaa2 M9nAO6X7Te SXBwtzvlakntiDK2FQMqYE NydB94Hs1pkUdrAf1gWTWk ZXG6DTYuuGTdL8YngV7xBg AjMDAwMDAw R0ArkVRpZMtgX196YTfxWq D0GUGjmhBcI0AuAKEbbWek WpN2t6W9Pn3THGd1SL67XH 64iNCry8Y0 wRR3C5CvDFHfaiwcdwkwyQ G4MHSeKOFhsV05Ms4gqRhf Qb9zRXOfJIH3QUKsdGNdM7 RriU3rToXt GXImSNQyM9DhfYDmJGnkZ9 11YPfjJkS4BDUukeZbY2Qb BAAgiCeyAmK9i4C0Ls9XXM WiLY86WKJ9 rMB3BP05TM80J8JhQdmzlW FibGU+PHRhYmxlIHdpZHRo WZjnOISkEhTzsRawSR0jGo 9yZGVyLWNv oVjtmEOcJgRlb9xeKVJyGS jwNL6thUakY1FsbJP5ZRMl v0x5Hd55C32iW8MhsOD+PG BljGQ0dOI1 zO9kHqVhDxR7EBlyR969Tg YloUNeTejul0mvs9xvwBi6 FkU6SPHapdTfyOwaDYK3t8 ZqGz27B08y IHdpZHRoPSIxNSUiIHZhbG gtca8ikU2aOq7+PGNvbCB3 kSF3oG6fTcYiAaK6EHfiI5 49InRvcCIv Yytae9hlu7htjLv1BcSdUP FmypMazZbuHVC3w0XmHd61 W9DsaKsfz7AhTla1bf02qC Cgy7Z1cCJ0 N3PrQECcxayvbWRvdJozEE 0wACGqwvuyQCQqeH0rSPBg Q1d5KlQlFdO8FScsG1Mfxv S6BLEsbCUq NNibFHB8Y33mz7Q6PBPoAN LuHSZ2qGM1yB8rlVupvxuv bGVmdDsgdmVydGljYWwtYW ylI615DSKy nQbiIRAajY1lFKMbjFAvrC vdOH6cSKQmzonoOeWKWohZ AqYhYZGCEo0SRK98AY01eY Cqy7T4gMH9 U0UjWWBnprlhlgyhjBE0JT AiOBLnyJ27bQXaALscSt3j z6N4e800TBShWSNueQ55Uf 9udDogMTBw eTTIgW4tykajx4sysojaUb EnQKWmDGm3XOt2IQWpxGfd YlDrBQT4ZmH6CFG9aHEhyJ 1hbGlnbjog lF3sSsv+MDliBBKwZCn6LH wvdGQ+AHChLIV0oKujEYjy YZJrjP1lHUKiP6b3TxCvXx B8MPeoJ1Dw UINlhkpkZi37eB3eIyDxLn V1CZkaS3SuzlI2QEKxiKCy QXpvLNX9A25cg8D1NZEwUA OeQRF9hEB7 vP0zuVhyvjedlQNebBwpyl VoaUttUBiqCMziI157UXEb hYaeHijnPLlyFCTfRO33YI 00aYWit0C7 pPV0G2ZxDZSpgwhvhqtoeO Q2FSAwTCKdlO97sUCpHVgk Pn3my9Q2q088WTMcDENpbN 43Yy9fhVfs NJFehKQOeL4mdcdel0kxjc liBpXuEAIkYMj1YIm3CZJj pXwpJdYcEJU3ThG3BPM9zW JznP6lwEst jrqdkH0oBpl+TWFsZTwvdG Q+FOQlNNJ4vDvzQJeaKXBp qU4cIQOgU5b8ZbQrSgT7RN ppS8MbUWZz eszwDg04lV1bPmLwYnZ7RS alT4SehkF8LZOqnDMnWJjd DOJ3P92bf5H3WIKlBVGdSV B8tIP6dY6x bGlnbjogbGVmdDsgdmVydG ypRAljRJraL782QARtfZuf WtpsWjABht1wED2xTscnwS Q+XZ65vy54 L5GyMmdtGxn9TXChTHB5qN N9wJ8xUKLhRWroi6T0jYL1 A0CqbkBztj2gj6pmWERyBI yoV57ecDHa o0Q7HQSeeUH8GJRbvHnsJt CsnC65Cdn+CYCigIidu1Fx Buhat0rdl1vuhNw2GsMrLK IgdmFsaWdu HHE1c4UoZv47Q92mEBimNZ VhJSOwKMFkBPTvsDpnbk4n rE5xQa1+BDBixJZ8mIA4jU 6rSsLwLjU5 NGdjB318QbLgePFxJoyrj7 trq5xqgKe2GlMtSLUxhrIf dCpwTET1t9PhDg48W0PxyZ lsd6QnXgm5 hn56eMFqb1M7eLO4A5WjZU JtqrgopCHyzOwrKK6rZQBe ktjzNZFujW4xLKWbX5o5Pu AsWvA4OCgz R2RwlzP7QSUkgKGjRDRoxQ KEyP9lnmyca5fcwihvJcLn ULTxRRg0EAd5RVFlnNxpOo AdYFB5UfH6 TXI5zLOncC3xwOcewypyeI 9wOyc+MHj5h6crvXVoRQ1s yAR0IU50GG26aGFxv5R8lL O4P1SgHWNr ngyhwvzbgHM4ZQIcNVMhkC 61Oo8zbQftWp4lFBNbNWS3 NXAuwSJpV3GyjU1eUrWtVM MsCIBeY4Zd pKLoPNaoX788QCyfHpL1KX XgczPxP0OtKDSexEfiZnK1 b4S6Ub7NLZ98MM07QQ05yA Vpn3L3sLC6 R2YjLRLjiheegcjiyUI7DW ErQCSftF67Go5toDjyMq5m HGVqMGR2IPTowNIcU3LrdN 9yOiAjMDAw OYKkZ8SnqOGeJEzzW410XQ xfKnU5CIOlqpOmY1HyECFk iWqdWyU8y3I5Xb8INx99IN 63WK09mYWk q6K9cFK8A6BzYISbwieyyh hisEK7YAWfYLGjuE64Zb9j hWndAg9mNXRaBZS0NENxyU XdZ6ReiD0x UbDzANAzCYJiZ9FfzRMmXY poJ052RFnsZrD2HELuyuQq J0YvXDOlqFzuCbD4s9C4Ag 1BOOgrvgh6 Y4YpUfuemFR+UC34HLHqAX 90nKPfdVKfr2emuNt8GfSg TRPmWRF2fQzvEEbzn5SvSD ErZ47jxNQr c2U6 (more content not included)... Normal [facility] Blood Gas Art, with Lytes, G joseline, [place] 12-01-2021 a/A Ratio Art 64.70 % Normal >=0.80 [facility] Comment on above: Performed By: #### 4 [id number] ####[facility] [id number] [place] [address] AaDO2 Art 30.4 mmHg High 5.0-15.0 [facility] Comment on above: Performed By: #### 4 [id number] ####[facility] [id number] [place] [address] Allens Test Not Applicable Normal [facility] Comment on above: Performed By: #### 4 [id number] ####[facility] [id number] [place] [address] Base Excess Arterial 2.8 mmol/L Normal >=2.8 [facility] Comment on above: Performed By: #### 4 [id number] ####[facility] [id number] [place] [address] cCa2+ Art 4.83 mg/dL Normal 4.40-5.30 [facility] Comment on above: Performed By: #### 4 [id number] ####[facility] [id number] [place] [address] cCl- Art 103.0 mmol/L Normal 101.0-111.0 [facility] Comment on above: Performed By: #### 4 [id number] ####[facility] [address] [place] [address] cGlu Art 110 mg/dL High 55-99 [facility] Comment on above: Performed By: #### 4 [id number] ####[address] [address] cK+ Art 4.3 mmol/L Normal 3.5-5.3 [facility] Comment on above: Performed By: #### 4 [id number] ####[address] [address] cLac Art 1.6 mmol/L Normal .5-2.2 [facility] Comment on above: Performed By: #### 4 [id number] ####[address] [address] police sergeant+ Art 140.0 mmol/L Normal 135.0-145.0 [facility] Comment on above: Performed By: #### 4 [id number] ####[facility] [address] [place] [address] Drawn by MAGALIE Invalid Interpretation Code [facility] Comment on above: Performed By: #### 4 [id number] ####[facility] [address] [place] [address] FCOHb Art 1.1 % Low 1.5-4.9 [facility] Comment on above: Result Comment: Refe rence range Nonsmoker <1.5% Smoker <5.0% Heavy Smoker <9.0% Performed By: #### 4 [id number] ####[address] [place] [address] FIO2 BG 21 Invalid Interpretation Code [facility] Comment on above: Performed By: #### 4 [id number] ####[address] [address] FMetHb Art 0.2 % Normal 0.0-1.9 [facility] Comment on above: Performed By: #### 4 [id number] ####[address] [address] FO2Hb Art 88.7 % Low 93.0-100.0 [facility] Comment on above: Performed By: #### 4 [id number] ####[address] [address] HCO3 (Bld) [Moles/Vol] 26.7 mmol/L High 22.0-26.0 [facility] Comment on above: Performed By: #### 4 [id number] ####[address] [address] Hemoglobin (Bld) [Mass/Vol] 11.1 g/dL Low 12.0-17.0 [facility] Comment on above: Performed By: #### 4 [id number] ####[address] [address] Oxygen saturation in Blood 89.9 % Low 95.0-100.0 [facility] Comment on above: Performed By: #### 4 [id number] ####[address] [address] P CO2 Arterial 51.4 mmHg High 35.0-45.0 [facility] Comment on above: Performed By: #### 4 [id number] ####[address] [address] P O2 Arterial 55.7 mmHg Low 80.0-100.0 [facility] Comment on above: Performed By: #### 4 [id number] ####[facility] [address] [place] [address] pH Arterial 7.361 Normal 7.350-7.450 [facility] Comment on above: Performed By: #### 4 [id number] ####[facility] [id number] [place] [address] Sample Site R Radial Normal [facility] Comment on above: Performed By: #### [id number] ####[facility] [id number] [place] [address] Sample Type Arterial Draw Normal [facility] Comment on above: Performed By: #### [id number] ####[facility] [id number] [place] [address] FT Blood GasesOrdered By: Ra eliseo Herrera [...] - 2.2 mmol/L [facility] Resp Auto SS police sergeant+ Art 140.0 mmol/L Normal 135.0 - 145.0 mmol/L [facility] Resp Auto SS Drawn by MAGALIE Invalid Interpretation Code [facility] Resp Auto SS FCOHb Art 1.1 % Low 1.5 - 4.9 % [facility] Resp Auto SS FIO2 BG 21 Invalid Interpretation Code [facility] Resp Auto SS FMetHb Art 0.2 % Normal 0.0 - 1.9 % [facility] Resp Auto SS FO2Hb Art 88.7 % Low 93.0 - 100.0 % [facility] Resp Auto SS HCO3 (Bld) [Moles/Vol] 26.7 mmol/L High 22.0 - 26.0 mmol/L [facility] Resp Auto SS Hemoglobin (Bld) [Mass/Vol] 11.1 g/dL Low 12.0 - 17.0 gm/dL [facility] Resp Auto SS P CO2 Arterial 51.4 mm[Hg] High 35.0 - 45.0 mmHg [facility] Resp Auto SS P O2 Arterial 55.7 mm[Hg] Low 80.0 - 100.0 mmHg [facility] Resp Auto SS pH Arterial 7.361 Normal 7.350 - 7.450 [facility] Resp Auto SS Sample Site R Radial (12/01/21 2:28 PM) Normal [facility] Resp Auto SS Sample Type Arterial Draw (12/01/21 2:28 PM) Normal [facility] Resp Auto SS HEMOGLOBINon 12-01-2021 Hemoglobin (Bld) [Mass/Vol] 11.1 g/dL Critically low 14.0-18.0 [facility] Comment on above: Performed By: #### H GB #### [facility] [address] [place] [address] Dr. Terence Hilario LAB TESTINGon 12-01-2021 RECV HEADER SEE SCANNED REPORT I N HPF Normal [facility] Comment on above: Performed By: #### H GB #### [facility] [address] [address] [address] Terence Hilario REV FROM REF LAB 12/01/21 [facility] Comment on above: Performed By: #### H GB #### [facility] [address] [address] [address] eTrence Hilario SENT TO REF LAB 12/01/21 [facility] Comment on above: Performed By: #### H GB #### [facility] [address] [address] [address] Terence Hilario Physician Orderon 12-01-2021 Physician Order [id number]:[id number] Normal [facility] CT CHEST WO CONon 11-11-2021 CT [...] by: KAY MARROQUIN Date: 2021-11-11 06:41 Normal [facility] Ambulatory Visit Summaryon 0 08-18-2021 Ambulatory Visit [...] MD, Cintia Hernandez Where: [facility] Patient Educationon 08-19-19 Patient Education Urology Benign [...] Follow these instructions at home: ? Take qbjs-vfo-vzihmwz and prescription medicines only as told by [...] You d (more content not included)... Normal [facility] Urology Office/Clinic Noteon 08-18-2021 Urology Office/Clinic [...] [facility] [address], [place] [address] [phone] Additional Instructions: Patient Education Benign Prostatic Hyperplasia [...] tab(s), Oral (more content not included)... Normal [facility] Comment on above: Result Comment: Elec [...] KYLIE RUEDA/Sex: 1950 Male Med Rec #: [id number] Physician: Cintia Alves Jr., MD Financial #: [id number] Pt. Type: A Room/Bed: [place] [address] Admit/Disch: 05/21/21 08:27:49 - 05/21/21 13:00:00 Institution: [...] Salazar Role Performed HEATH Surgeon - Primary Ornamenter Hand - Primary Time In 05/21/21 10:02:00 05/21/21 [...] Mimi Alicea CST, Merlyn Baltazar Role Performed Ornamenter Hand - Primary Staff - Other Scrub - [...] and tissue Entry 1 Skin Integrity Intact, [place], Warm, and Skin Abnormality No Dry Outcomes [...] CIRCUMCISION A (more content not included)... Normal [facility] Patient Educationon 06-10-19 Patient Education Urology [...] personal one. It is often based on restorationism, social, or cultural beliefs. Circumcision is most [...] 01/28/2001 Document Revised: 07/17/2018 Document Reviewed: 07/17/2018 [employer] Patient Education ? 2019 [employer]. [facility] Urology Office/Clinic Noteon 06-09-2021 Urology Office/Clinic [...] 08/09/2021 EDT [facility] [address] [place] [address]- Additional Instructions: Patient Education Circumcision Information Billy [...] Daily o (more content not included)... Normal [facility] Comment on above: Result Comment: Elec tronically Signed By: Shawn Allen MD, Cintia Hernandez\.br\Date and Time Signed: 06/09/21 11:51 EDT\.br\Electronically Co-Signed By: Billy Bell.br\Date and Time Co-Signed: 06/09/21 11:49 EDT IntraOperative Documentson 0 06-02-2021 IntraOperative Documents [id number]#1.0 0CD:127 Normal [facility] Coding Summary.on 05-28-2021 Coding Summary. CD:[id number] Gh 0bWw+PGhlYWQ+YT4FHZLgL 09kbPXbuP1FN5aXGG3JHME DKXPSBS1AQH8qzST9NStbB 2VybiAv BioueSHaOY49OMr3SPC6tG swLWkolJ8owJSrB9h2FbOs AM48nJ24FHypMDUcMoB5Wj ZpbjsgbWFy G3rcJdSufWRzBxw+PHRhYm xlIHdpZHRoPScxMDAlJyBz mNqrUQ9gDl3xOALyBZAzyE xhcHNlOiBj z8koWMCuMNxbUN1voLbxE4 CliJO8VVKts4r1Bj36zMW+ JLZiMCK5pOhiMTtcf383Zu Ubx1bqEKS5 iHWmXFdkFGJ0A87ji4T5FQ LyDRCfEPO5tHN7dD8unRvh ciiyN1DxmOPrOxP6ONM6fW GmvU4enLed ljebhO7vRue+A70KLD1BUH ZMEJ4XGuk3V2ZpSgvioQT+ FS41OJViFM93rHSznPQmn4 kmeMo2UiYt CFWhXCD5iCmoBWsim9HlXY EzG10cvFNka8T3FPCgsKfa aDAkQcQpqON5zU8tHCcqfs kwp3gztwpb Esfcb7rodh28eM43L17gHX qoBANjULI3DMKhZVEvpDxq tg9taC4sYc8+HImoe8dio7 lbbDy1ZcMm OHAuurKehBwkWOQ4y7FfUf 85N6DbgVnrx3XiPos7px20 aCVli2C7nHA3JCvyOPMobU 0tDTtoHdT0 KSFeQuCvzM17rJOxGOptXa 9mvKpbhPvkYQ0gUKCxbgul UDQkoD6iGLOkxASxgOpeQP 4wNTBpbjtm x869ElUsBZU8PXVoqEUjQ0 JjnX9hYaPoRTLvAMPpW5Qj pXOrCLpnN322IUlhLxL4ZT NzlzYeS2Pk DCQizFogSgQ5c3B2Kb2Jq0 JqerkiMSN0BAxgJOA3LdF3 ToWbWgK9W9CcMpw4PZKsaI cgMM6uZ8Yc UVSgfbvggecbaET3HQYxAS GfqM14mXHqURyjRh0oi6C8 p544RQBtTALwhR89Hv8ijF ogMTBwdCBU qM0laoudg8xoumfzFcClYI NdRSy0QIx1IMAzsOwhRzYl KIB6MlH9QHC8xHMldH4ueZ bcfvupoN7y Oyc+E93dkT4jARW0KXL8pq ohELUpxjIwQZ93TP26R0De PjwvdGFibGU+PGRpdiBzdH jfZZ5cYnRs k0nud6XjKAeaU4NcTPFlIV opFuq4LLXsMHH6vNO3cK6f YIAcMSmol3M8aAI8W3Pchn Hbxt7ph9qc MIPbDMbuP72stLObj7L6OS BrmEE6DHKuaFgwYtEsdL18 Oyc+WMYblAugs1JhHeprs2 nwi2eczUc8 OyHaXMGhnyHrxVkuDFD5f0 GsHq87M65lTUemXRRmIWGv JWKaZZIgzIimey2ezM3uWh 8+PGNvbCB3 pNU6aX0yNSMdElR1PNqlA5 21FzDvsYWgJghhu5qyc0bc jCd9CrHvJIGzhdEwgIahDN X4a4ZqWa27 U06iTDqnLCYuQSWaIRDuZK DptPwhno3ozF9gHu8+PC9j y4dyfn83nE05iSW+PHRkIH L4lAnbEBin PQLjyL9oSImmOkB4LKOxKx AdfU02lNHhCRndDd5ovBab rUfqBM4xZBCdpnnmh578Bl Smy0vcUGLq yMBjRZqcWDX0R38pd1F3ZD QsZDOwMDA9vTM2cY7dkApw bjogbGVmdDsgdmVydGljYW ujNFvtC633 IHRvcDsnPlBhdGllbnQgTm RjMPv4D6BvRio9UUWodMgi OL0umJGlLQmyWj5suClvtA juTD7pYLGf txlzu984MnDzb2uuMIHeyQ LaMIyfALM9F26ei1Z4SPFf ECYbERC7bWN0dM6aqRdolw ogbGVmdDsg ybPiiTdoVUmsTIplF464YF RvcDsnPkJpcnRoIERhdGU6 JE68PB33oUHce8G6iVF8D4 BhZGRpbmct elyrdYL7ASCvJSRvoM42Wp 1dcBvjCp3tXEBnJZT4ZHQb hBLcJ2UkiJ9tIwCqYOJhEJ HhI7JcrZVx OQwwN358FVqkBbS3OBNicz UhA2TcMJVroHuuEaU0x2V7 Gw4UN9D5LN92JH13bYWlf9 N5iCM1Q9Kw LYTbzzdjcrkdxTD8BOXgJT WlpA84Ko8bsCyxMs3lROEi YIQ0PTBphSCbL4HbyC1fIx AjMDAwMDAw R2JvlSVrFExfX984XGfxIc F8SPHalpDyX5QtXJOchOnz YkO6w3C6Kf0ZIYp9OG98WX 83tPJrd9E5 uWF4I5MxZHBkfutraligfZ W4HQRbOXKquV69Ui6zlQep Wv2aFCRbTMQ9XASubQAvG5 SguH3aAxKx BYHmRLCaU1DwhGDiNJlfW8 89JIjaGrF9SZPoobHpT4Jm HZVajXalQhW3c8Y0Nh6YOA LxZX17SHS4 tHV5FJ41DB13R6SxPnokqX FibGU+PHRhYmxlIHdpZHRo JGwwJKJfVaNbzNipTI1bCr 9yZGVyLWNv hStxeSVzClSdd6wiZCDxZY inDW6diEvvU4JdbPD2WPGs e3y6Vf79H51xN1GkvXF+PG CsaKG1yKK9 mH2sOzHkQeR9HHogD108Zo KkkOQkUprgs1nsr5ahiEg1 ViH7YDZtwxAqiPgdYQY3i4 JwBu76B01t IHdpZHRoPSIxNSUiIHZhbG qnky0fpM9eBh3+PGNvbCB3 rCH2eC8wRnTpSvH0PPffC2 49InRvcCIv Swhyz0atx0wezVq2XkNaAW AmcmAvjItsYJS2m3RjNr39 P0RleCgfv0EbIhk7zw84cM Etp5Y8vNU9 U6MaRWBgvopmuRBjkYepVE 9xUSQqfqvxXEMmiT9hXMQz T7e5KjYkFtC9SDilN4Jvyp H8EBQklSBj ARalPUC6X02nu3Y5XGFvAF CyUBY8aXW5yR6duYmllsng bGVmdDsgdmVydGljYWwtYW dxS866ATEc zBgkQPVxqP3rLDNemAGcaE mxFX4eKVSyzabqLlGZSpiW QdYyMNTJFh6EIX20ZA50hZ Spi0J6iRD8 P1NzRJMrficypojesKW0IS FkHIAafZ38uXSiNGzyKk9i x8O9y656XDCuYQRqqZ54Ih 9udDogMTBw ySPJiN8vwwcpr1fisxvaKl FrZYQhJYs7HAm9SBVbnLxd BsLzCPR9PqJ8GIR6nVOjaC 1hbGlnbjog fW5mHhu+WOhoVROfMWt7JI wvdGQ+WEOoFHE6xIqjAOtt XIZviV9dQLEjZ3f5SzSuRl I3ATihS5Dm ZMRbipavAz66dG3eCsRtVp V2GUzbV1HerfB2LCIjrEMj GIluEKA2X71jv5D5QKGaZL DmMOP3bDQ3 uA9prPrubnlihUFlgMmrcp HlrQrqNQwwYBqxU052WCBv qJbvHiqaQSwdXLSyQD15JV 33lUXet6K7 eAI9H5PjNMJaqnmnrtpsnR N0HEKuXHLtxZ75bGHmJVzd Qd7yl8O5i250GCOwJJMtdA 02Vw9emJos XYSheOFHgC7krjtqu3aqxe cpSsTgLUFmHPg3RMt5VWZz wMkiHePqEMB1MuW0QKA7fJ DomJ3rgDss evvxdM7aYfe+TWFsZTwvdG Q+UHMyEOY3zGofRQiyTLPs pC8zMWLiS9c1YtQcUrW0XO qwL5XhUCFh brstXw01yH4xRgPtEiF6YG xoB2BsocH3IDAqxGXvATfn BLV3F33km1H5KIRqHPAaED Q8jIZ1hZ9r bGlnbjogbGVmdDsgdmVydG fbHRypICbwH027HNGvbYvo CsHjRyIyCAMdibjuQ4YxXB QCMZvbE8Ui F7VmeFqsqOM+QX55ci48K5 ShVwjeJim3ERDpGQM0qYJ5 vE0vXJKnGXbhm1T8gER3W9 RsruVnhw9o x3hoZUKiYNxiT85czUNxt0 T6YLAqwPU0QCHriDncDpMm bI88Owz+HULetNbzr5QpXt sgj1xky5vu dCf9AhBgARDvjyNyaZfcBT G9n1ObGq99F73rHLgqPMPo QGHmRGHeHPKavDmodf6hmB 9wIi8+PGNv tVQ0kWB3wG1uWmCkXmN3ZS ctF863BfHsrREtVheuf9hz y9goiQv1MnOtDISsyrYgqO qbQAA9k8Sm Vt56F3KlxVsfe9DnBhf2la 12eJPtv2Q4vPD5I0ApEUPu goajzPZlmTcdCI1eNUEswt woCLHuuB8w LJCvH3y2DgGgPyL7LHkaH4 IdjuL5CBBhqYBfKLVduWBC uD5guiitj4yloybpFqQkCD ZsEEo5ZQy7 YJQvwDjvXtNfKOO2KsS3LE D0fRLqvR5bkKgaxsjbxU3d Oyc+HFe2y5hpqJBrSO9ujA I1SI14EK33 sFAkf1P5mDH0P5CfKCNaof rqjzsfiZX1BOEnGYKvqF94 Ff0siLsxEl1qGIHzGPN4FL UofIXwE1Ok wM7mQhLtURJlIMOlD4RkmH UvHVmdX932SFufStR4ZDYo grWeZ9RwFVZgoVlpSdW3t3 M8Lw7YDJ17 WR68NE77zFZyb9S5rZP4P4 YwZGSivprnsnipoFY3LCTn AEDgxV18Ef5nnVuzOi5tPX FoDGJ1DXHw iCTtY1MehC3uHpJfYYCxKF WgE5KeyIAhOWjgN794XNwi UcB7ZKUrhtWgO5DaZRAzvN ppSkH1c8O7 Tr6ZRc73MQ15MA43jOKmw4 J6kYM7W7HrSMYmpaenowml iJA2SJMaDKDohI77Kb9umE qmDe7uQDOu ISS1OJVrlKOuK3TbkO8zWy XtDQJaYMLgR5HsxFNrVEhw T694ILjbEsI7CZKrnkEsF4 FsLWFsaWdu MrL1m2H7Ji0SPNpryax3Q6 RkPjwvdHI+PC06QWMzTH30 cLVjnDLjx1rdlHd6IgZcML BgMIT7jHor PSdi (more content not included)... Normal [facility] Progress Note-Physicianon Progress Note-Physician Patient: KYLIE RUEDA Age: 70 years Sex: Male : 1950 Associated Diagnoses: None Author: Rhys Salazar Jr, DO Postoperative Information Post Operative Note: Post Anesthesia Care Unit. Anesthetic utilized: General. Health Status Allergies: Allergic Reactions (Selected) Severity Not Documented Contrast media (iodine-based)- Anaphylaxis. Problem list: All Problems BPH with urinary obstruction / SNOMED CT 5132916519 / Confirmed Back injury / SNOMED CT 0325324821 / Confirmed Complaint of insomnia / SNOMED CT 918610479 / Confirmed Phimosis / SNOMED CT 2407176378 / Confirmed Urge incontinence / SNOMED CT 854048540 / Confirmed Resolved: CVA (cerebrovascular accident) / SNOMED CT 655991795 Resolved: Acid reflux / SNOMED CT 228839247 Resolved: Hx of shortness of breath / SNOMED CT 9152232733 Resolved: High blood cholesterol level / SNOMED CT 16355031 Physical Examination Vital Signs 05/21/2021 11:25 EDT [...] 24 hr (more content not included)... Normal [facility] Comment on above: Result Comment: Elec [...] bedtime), # 30 cap(s), Refills(s) 6, Pharmacy: [facility], [address], cm, 04/28/21 12:55:00 EDT, Height/Length [...] BPH with urinary obstruction / SNOMED CT 1058014007 / Confirmed Back injury / SNOMED CT 6306379794 / Confirmed Complaint of insomnia / SNOMED CT 515837175 / Confirmed Phimosis / SNOMED CT 9557487689 / Confirmed Urge incontinence / SNOMED CT 247683292 / Confirmed Resolved: CVA (cerebrovascular accident) / SNOMED CT 487716762 Resolved: Acid reflux / SNOMED CT 008984322 Resolved: Hx of shortness of breath / SNOMED CT 0795298778 Resolved: High blood cholesterol level / SNOMED CT 11492526 Histories Past Medical History: No active or resolved past medical history items have been selected or recorded. Family History: No family history items have been selected or recorded. Procedure history: History of hernia repair (7253642839). Arthroscopy of knee (132553502). Complex reconstruction operations on wrist and hand(excluding arthroplasty) (600378923). Cardiac catheterization, combined right and left heart (55943444). Pain management medication delivery system pump (2615972575). Social History Social & Psychosocial Habits Alcohol [...] Mean Arterial (more content not included)... Normal [facility] Comment on above: Result Comment: Elec tronically Signed By: Rhys Salazar Jr, DO\.br\Date and Time Signed: 05/27/21 09:32 EDT Postoperative Documentson Postoperative Documents [id number]#1. 00CD:127 [facility] Consent for Anesthesiaon Consent for Anesthesia [id number]#1. 00CD:127 [facility] Consent for Procedure/Surger yon 05-22-2021 Consent for Procedure/Surgery [id number]#1. 00CD:127 [facility] Discharge Instructionson Discharge Instructions [id number]#1. 00CD:127 [facility] IntraOperative Documentson 0 05-22-2021 IntraOperative Documents [id number]#1. 00CD:127 [facility] IntraOperative Documents [id number]#1. 00CD:127 Normal [facility] Preoperative Documentson Preoperative Documents [id number]#1. 00CD:127 Normal [facility] Preoperative Documents [id number]#1. 00CD:127 Normal [facility] Consent for Treatmenton Consent for Treatment [id number]#1.0 0CD:127 Normal [facility] H&P Updateon 05-21-2021 H&P Update [id number]#1 .00CD:127 Normal [facility] Inpatient Patient Summaryon 05-21-2021 Inpatient Patient Summary [address] [address] [facility] Clinical Discharge Instructions PERSON INFORMATION Name: KYLIE RUEDA PHYSICIANS Admitting Physician: Shawn Allen MD, Cintia Hernandez Attending Physician: Cintia Alves Jr., MD PCP: DAVID GARCIA, JENNY Discharge Diagnosis: Phimosis Comment: PATIENT EDUCATION INFORMATION Instructions: Circumcision, Adult, Care After, Lzmb-mf-Egdv; Post Op Patient Instructions - FT (Custom) (CUSTOM) Medication Leaflets: Follow up: With: Address: When: [facility] [address] [place], [place] [id number] [facility] () Within 2 to 4 weeks Comments: Postop visit wound check. MEDICATION LIST New Medications [facility], [address] [place] [id number], [phone] acetaminophen-oxycodon e (Percocet 5 mg-325 mg oral [...] day (in the morning)., heart Comment: Normal [facility] Main OR PACU I Recordon Main OR PACU I Record PACU Phase I Docum ent Type FT Summary Primary Physician: Alves Cintia Allen MD Finalized Date/Time: 05/21/21 11:29:49 Pt. Name: KYLIE RUEDA/Sex: 1950 Male Med Rec #: [id number] Physician: Cintia Alves Jr., MD Financial #: [id number] Pt. Type: A Room/Bed: [place] [address] Admit/Disch: 05/21/21 08:27:49 - Institution: Case Times [...] By: Tonja Gómez RN 05/21/21 11:29 Normal [facility] Main OR PACU II Recordon Main OR PACU II Record PACU Phase II Document Type FT Summary Primary Physician: Cintia Alves Jr., MD Finalized Date/Time: 05/21/21 12:59:05 Pt. Name: RUEDAKYLIE/Sex: 1950 Male Med Rec #: [id number] Physician: Cintia Alves Jr., MD Financial #: [id number] Pt. Type: A Room/Bed: / Admit/Disch: 05/21/21 [...] By: Iesha Majano RN 05/21/21 12:59 Normal [facility] Main OR Preoperative Recordo n 05-21-2021 Main OR Preoperative Record PreOp Document Type FT Summary Primary Physician: Cintia Alves Jr., MD Finalized Date/Time: 05/21/21 10:19:02 Pt. Name: MOHIT KYLIE /Sex: 1950 Male Med Rec #: [id number] Physician: Cintia Alves Jr., MD Financial #: [id number] Pt. Type: A Room/Bed: [place] [address] Admit/Disch: 05/21/21 08:27:49 - Institution: Case Times [...] By: Marifer Rodriguez RN 05/21/21 10:19 Normal [facility] Monitor Recordon 05-21-2021 Monitor Record [id number]#1. 00CD:127 Normal [facility] Monitor Record [id number]#1. 00CD:127 Normal [facility] Operative Reporton 2 Operative Report Patient: KYLIE RUEDA Age: 70 years Sex: Male : 1950 Associated Diagnoses: None Author: Cintia Alves Jr., MD Postoperative Information Procedure: Elective circumcision Date/ Time: 05/21/2021 10:55:00 Preoperative Diagnosis: Phimosis (MOC46-LQ N47.1, Discharge, Medical). Postoperative Diagnosis: Phimosis (GRE66-SV N47.1, Discharge, Medical). Performed by: Cintia Alves [...] Loss: 00 ml. Complications Anesthesia type: General. [facility] Comment on above: Result Comment: Elec tronically Signed By: Shawn Allen MD, Cintia Hernandez\.br\Date and Time Signed: 05/21/21 11:00 EDT Outpatient Surgery Discharge Instructionon 05-21-2021 Outpatient Surgery Discharge Instruction [place] [id number] Patient Discharge Instructions PERSON INFORMATION Name: KYLIE RUEDA Date of : 1950 Current Date: 05/21/2021 10:56:51 PHYSICIANS Admitting Physician: Shawn Allen MD, Cintia Hernandez Discharge Diagnosis: Phimosis KYLIE RUDEA has been given the following list of [...] [facility] [address] [place] [id number] [facility] (1) Within 2 to 4 [...] to serve you. Thank you for choosing [facility] HERE ARE THE MEDICATION CHANGES THAT OCCURRED DURING YOUR HOSPITAL STAY New Medications [facility], [address] [facility], [place] [id number], [phone] acetaminophen-oxycodon e (Percocet 5 mg-325 mg oral [...] cannot use soap and water, use hand clinical informatics spec. ? Change your bandage as told by your doctor. ? Leave stitches (sutures), s (more content not included)... Normal [facility] Patient Education - Texton 0 05-21-2021 [...] cannot use soap and water, use hand clinical informatics spec. ? Change your bandage as told by [...] it is okay. ? Take or apply emuy-rdo-oqqkjbc and prescription medicines only as told by [...] 07/19/2008 Document Revised: 01/13/2018 Document Reviewed: 02/08/2017 [employer] Patient Education ? 2019 [employer]. [facility] Consultation Noteon 05-21-19 22 Consultation Note [id number]#1.00 CD:127 [facility] Outside Recordson 05-20-2021 Outside Records [id number]#1. 00CD:127 [facility] RAD - CT Reporton 05-19-2021 RAD - CT Report [id number]#1.00 CD:127 [facility] Coding Summary.on 05-14-2021 Coding Summary. CD:[id number]:[id number] Gh 0bWw+PGhlYWQ+SE0SQOWhH 32ahGKpxB4VN6lHMN0ILTZ KMZDCBV7QCS5voKX6TChpC 2VybiAv PbmebMGrCV39IWj2DPS7yL ubSXugoU0caWYiL6z8CrRb ZU17lM25XRdcXNXlVlY8Tg ZpbjsgbWFy S8koOqGilWBlIkm+PHRhYm xlIHdpZHRoPScxMDAlJyBz dCeyKX2yWq5dQLCpYBAppY xhcHNlOiBj x1iwTUIpMHqaQP3ynEhfQ1 GddPM5DWWyd6z3Zz84gNB+ GYDnKTN5eLnlGRjax020Sk Wdy5vcCVZ6 aUKhXManGSL3H87kl4T2ZA IjNMJqHOM1kFU4hM7lbBns ohwlJ6InmEXxOwL3IDF6aC CceH0elThg zqrhfO1mHxk+W20EGN0XQL MZEG8ZUnx5F1XjYwvnsSF+ EZ21IJPhCT05yOOquXDdg7 shhPc9VyJq VCYiGKY7iKwvMSwpe5ZtWO PjC45zxSDmw6E0GEIzjIxv iWCrSsLkmLE8zU4rDZtkhu giu8tjblht Mhdgp2ojvw58nZ19D09lTH soMKKfMAY2PUKqQWShqFpq gx1khW5fEq4+DNfpp5iht7 higPo2WmPu FNIofeYfmHyqECW2e5PoYd 64K4UdkVbyd2WpRsz3ze45 mHJsn9G2rOU6VSfjPWDsvL 5xEDeyAvS7 LDIeCmBalR28aXKmRPwbXn 3waYzanIngBB1oOHUenqab FISbxM6fEDVczFNztCvuME 4wNTBpbjtm u272AiJhMEM8EFKboYSiY5 UkjG2uRmOePZXjIXToI2Fn mIDhSWzjH113CCacMzC9DQ TtzeRxU3Zw GXDkeVmkBmP5i5Q8Ys3Rk6 XagwrbDOK4IOluZAJwSfCt BvOpOsW1D7NcKrn7OSZeiW osWM7dK6Bs DIMqhcjplxijaPK9SZOsGR MirI04xOIwHXruWl6xq8E5 s905IOWsYPTqqL59Th6trD ogMTBwdCBU uO8exxbfl1gabrnoLcZyHL MkIMg3LMc5SYWzyAdkDoMn BSU2UeC7CJV8mTMtcW1rlZ jnksnleF7s Oyc+R57anO7mNZQ9HYV0jn kiCSSmfpFwAF42MA43K3Tx PjwvdGFibGU+PGRpdiBzdH nwVY2lTlOg e8yvz0UiATraZ7TwJFHfJY fqYpp2BTVdQCJ4aVD1iZ3c BMRuVLlyh9L7hYN3A0Tcpt Mezg5fg3zb KDPbMAnkE04ihFCyb1E8MP CavZF1DLGpmTnhRxSvrG41 Oyc+VWUiyQnnm3PuXghnz8 yeq0motLh0 NtIiJBZronWtdAwyOQM3i0 TnQe71J40xZHrsFYXhQYAb FFLkNQPnzQcsuw4pyU8sKj 8+PGNvbCB3 jVZ1rH0dVYAqMaG3KBzrL2 98XeQpqHPuZjlkl6imq5sb yNr5LeIeMAMlydEzbFnjZI U1e4ByWc02 E04vAJqhVWCbBLAgEZDaRC FzlLwrwb6shJ9lHf5+PC9j z9ezpz95tR51gTU+PHRkIH M8kVtqZXis DLXvfA8zFHowIsJ1PQJcEs OszN92iEHpSVabZt3izHml sCcwHH1sIENbtolfy786Ai Cdt6dfTMVb yEUcZGhqLMX4B19am3B2PO QjSLPxFHR4kGI7hP8imQde bjogbGVmdDsgdmVydGljYW qiSSlyW489 IHRvcDsnPlBhdGllbnQgTm MdVZm4J1OqPpt1OYHhfIbn NP9dbISlORpoXz3htVtfgG gkWB8cAFWd owagb589NlJew9ixKMOpvW AaEYpmSCP2S72gi9A7SGHg JKLbUSX8dSP2iQ7ztBnrwo ogbGVmdDsg iuJhcOyvWXowQMylL402LD RvcDsnPkJpcnRoIERhdGU6 VB61YM42uMTym8K4zXR5T4 BhZGRpbmct rvfkpRD5GBYhSZSdfQ33Dn 1poMxjOl3rLGWiBRO3GUSh hXDlN8AptL0nUaMsLAVoDR HkP3SzkVTg SBqlN216GEemNjZ9EITcmo MtP8OxTJGpyRkoBnQ1m4U9 Kb9KE1T6QA76VA82gSTkl5 M1lNW7M3Va GHZaotwzhavmyRN6ZELhZD OlwW86Qh2xiExrDx6eSYXz PMH5NFBtxWTkU4PcfV3dXs AjMDAwMDAw N7ZcvFBsKLubC364FCcjTg K5MQYtglPaD1SzKPZwvDsq FsD6f3C2Wd4AEDd0VP97VA 70yXMcg7F7 jNV7W5XcTHPitewksebpnK I2XJXzOXPcqV82Qx3grUan Sy6xQPWnSTQ5QGAynTUxE1 MdaD6fDjSl VXTyCEKeC9OfoCGgDVxzU9 39KBgiClN8UYTxrnHaN8Dk LYGciThrEhT4g9S3Dc0OXS SnBY06HCY3 mOF8HI67WW06S6UiRrnecD FibGU+PHRhYmxlIHdpZHRo RYqxUCGpFtCybVlcPQ3gOx 9yZGVyLWNv jLcsaGTuTaAna6thNYDwMP uxHE6glQwnY8BzaGV4KHSj p7w3Hg17B83eG1HlrNB+PG ZzpWS6qSS3 vF3bTxIxBmD5CLdzA762Mt RbrFAsVhzsc6ena5utsOd4 OgO5ZSPsayQdsDweAEL8n1 KfQh56C22t IHdpZHRoPSIxNSUiIHZhbG mbcl2uaZ8iXm8+PGNvbCB3 rGN3kA3qIuTcAeC3HNwaJ9 49InRvcCIv Ppnjx2pvc5ksvPc2QmPlEG WzkkOicLgiBLP3u3YiUm32 H4PlhFixt8CwBhf3hr01uE Ler5R0vJS6 B4XfROHefaqqyDVdhGcwBH 8sQBZmhmdtQTGvvH3rSFEd L6a5GnMgLrN3FGvoP1Bzwk K5ASYktLUa SWgfEKX4B50er7S0HNWcQT HjRIO5xAT1gX4xzRisfwwp bGVmdDsgdmVydGljYWwtYW foA704RBDv nLkhIZGrgB6yKSNhsMZnpN koIW5nCKSrchqnNyUGHdhH NaHsCZOQEr8FFT12SC27gZ Fjj4T5kHA4 D4OuVAUcckbnivbicFY3JG YdJJUriX18cRCrBFjzSm2c s9N9q136PCBlIYDzlC49Ba 9udDogMTBw wCWBxC4awyhye4yhzvrzZr RsXXTqFLm0ZBv3EGBmbNvu DsJnCMS3FyM5USP0rMQzcK 1hbGlnbjog dC3lWlp+HZddAUFiSSi1CA wvdGQ+RWGiQIA3jSjhMLqo LSSpfF2oAZMfF9y7XxGvYc Z4NQzoN0Ft TKGgrmvvKi55vB8dCzAxAl G8PFedH7AbtjZ6XFLwmIPn WIvjYOX7S15qi3Y4PVYvDU KzIZR3rFR9 qO1foMvsblslyEFyeMvtit AxqQlaTAzwNPgnG347GSHv cSpiTmwkYYnrYDBaQS97NM 68lPFwv5B2 zVY1L1ByZEFdkkhnqcfakG X0JOTqXBSdjP72vNZlNKlh Vc1qd6L5o401ZXYfUMBwjP 54Mr4gnAih FRAppBHKxL7khlpob7hpan xqTtQdPXLoUAj4GEm4UTTn iQlaAiCxDFY8HaN0DVA8oW CecV9liWzp vfixjR5rCgf+TWFsZTwvdG Q+MGSbSLP0dMikFRxfRBNy bQ7tQOIdF7c6QrIbLyX3WT rtG6SyYAKv ronxFb10dA2cAcQkUkC5SB qbO4JxlyC7CLSnkTWpCPxb OWW1C73wb5S0VETrOAEnPY F1uFG1jY3s bGlnbjogbGVmdDsgdmVydG rqXYstWUbnQ456SIXzhTix Mg47uTGjqXrtqrR1D7TyPx wvdHI+PC90 FAItBZ17yBBjwNLdj3fdrB c0JrCaDBKsWAT0wWqaJBex h5EaTIFiL23lvWRnt7R1KQ NvbGxhcHNl FrCieHF0aK6yIVxwkrvma1 avegmmNoyuc9mkrw94aY78 G68sNZanOSDxVOQiLXZjVT EyuBlvms9u dG4xJf4+OORmcIS1zDJ9lS 6hZiFzQiD6GLtzT615ZyEc dKGjJbaey6dou0oygZf1Pw IwJSIgdmFs wCksANE5h2DdJv89H44sGF dpZHRoPSIyMCUiIHZhbGln nl2jtS3aBs3+RP9bh2zsqe 55dU86rYF+ YGUpKRR8rGzeJOvjZKEpxE 5kPQqbUfX9IUCiWqZfsE05 pXDhLMdyDp4mdKsajNomRQ 4wNTBpbjtm r712XdUoc6mwVBBoaGHyLB vyTPL5S58oy5O7WMJtMABu SBJ5yNG9vN6wkPojktiolL VmdDsgdmVy zPhcLOzpKNsjJ354BRNpbP ysSmIzjJWcI1pzheBGEI5p OjwvdGQ+XHFnZJV4jDbeKP kaPILcgA0e GBPnG4v9RjBgAsU5CHqdS2 AvurB8DSEweUFbOCIxoYFW fT9kmpfkh3aalgspFeGyAH JbMEw0RLx7 VSBqoZymMpRgABB5ZhT2LO J5nZDxrK2obEgfbeudlF7r Oyc+RklOOjwvdGQ+PHRkIH W1mKemJLhu XWSfsM1kDLKfG4q4AeDsDc L5ITphJ7GwmcE4JAThiARa TQRpzSIAkU5sfenoy2ayih ogIzAwMDAw GQw9NMj4JRBywLrsTtOhYW R4YjL6BGJ5fSAspO7zsPwt awsqiC3hZct+TVJOOjwvdG Q+PHRkIHN0 qVjxPUknKJZoaE7vAKTfQ0 e9SrFkNvY9EQoqW5YzyeW6 DGHwrBVkEQGzeDUYdD0hcs ole6lrwzvl DnQhYKAfFMa4BEi7KNMbpN ceUbCeUHA2KiY2GPF0lQOe nO4pmHuhbhcmjM0nMwi+UG O1XJK6PL77 QX48F7DuVrhwmZMwsZF+PH RhYmxlIHdpZHRoPScxMDAl BiMruTltZG5vKv9qMGYkXS NvbGxhcHNl OiBj (more content not included)... Normal [facility] XR Chest 2 Viewson XR Chest [...] MD Transcribed by: SENA Technologist: WILFRIDO Normal [facility] Auto Diffon 05-12-2021 Basophils/100 WBC (Bld) 0.4 % Normal 0.0-2.0 [facility] Comment on above: Order Comment: Order Added by Discern Expert. Performed By: #### 1 [id number], [id number] ####[facility] [id number] [place] [address] Basophils/Leukocytes Auto (Bld) [Pure # fraction] 0.0 E9/L Normal 0.0-0.2 [facility] Comment on above: Order Comment: Order Added by Discern Expert. Performed By: #### 1 [id number], [id number], [id number], [id number] ####[facility] [id number] [place] [address] Eosinophils/100 WBC (Bld) 0.2 % Normal 0.0-8.0 [facility] Comment on above: Order Comment: Order Added by Discern Expert. Performed By: #### 1 [id number], [id number], [id number], [id number] ####[facility] [id number] [place] [address] Eosinophils/Leukocyte s Auto (Bld) [Pure # fraction] 0.0 E9/L Normal 0.0-0.5 [facility] Comment on above: Order Comment: Order Added by Discern Expert. Performed By: #### 1 [id number], [id number], [id number], [id number] ####[address] [place] [address] Lymphocytes/100 WBC (Bld) 15.1 % Normal 14.0-50.0 [facility] Comment on above: Order Comment: Order Added by Discern Expert. Performed By: #### 1 [id number], [id number], 7272409, 8101750, [id number] ####[address] [place] [address] Lymphocytes/Leukocyte s Auto (Bld) [Pure # fraction] 1.8 E9/L Normal 1.0-4.0 [facility] Comment on above: Order Comment: Order Added by Emma Expert. Performed By: #### 1 [id number], 0255664, [id number], [id number] ####[address] [place] [address] Monocytes/100 WBC (Bld) 11.7 % Normal 4.0-14.0 [facility] Comment on above: Order Comment: Order Added by Emma Expert. Performed By: #### 1 [id number], [id number], [id number], [id number], [id number] ####[address] [place] [address] Monocytes/Leukocytes Auto (Bld) [Pure # fraction] 1.4 E9/L High 0.2-1.0 [facility] Comment on above: Order Comment: Order Added by Emma Expert. Performed By: #### 1 [id number], 2077908, 1550856, 8785186, [id number] ####[address] [place] [address] Neutrophils/100 WBC (Bld) 72.6 % Normal 36.0-75.0 [facility] Comment on above: Order Comment: Order Added by Emma Expert. Performed By: #### 1 [id number], 5178854, 3255650, 9545155, 91829234 ####[facility] [address] [place] [address] Neutrophils/Leukocyte s Auto (Bld) [Pure # fraction] 8.8 E9/L High 2.0-7.5 [facility] Comment on above: Order Comment: Order Added by Discern Expert. Performed By: #### 1 0055755, 1838194, 1170378, 0879575, [id number] ####[facility] [address] [place] [address] BMPon 05-12-2021 Anion gap [Moles/Vol] 12 mmol/L Normal 6-16 [facility] Comment on above: Performed By: #### 1 2828553, 0868623, 4625376, 6515733, 42716066 ####[facility] [address] [place] [address] Calcium [Mass/Vol] 9.0 mg/dL Normal 8.9-11.1 [facility] Comment on above: Performed By: #### 1 0921674, 3285010, 2721182, 0147514, 01927824 ####[facility] [address] [place] [address] Chloride [Moles/Vol] 101 mmol/L Normal 101-111 [facility] Comment on above: Performed By: #### 1 9660935, 5802088, 2310244, 6090768, 61377986 ####[facility] [address] [place] [address] CO2 [Moles/Vol] 27 mmol/L Normal 21-31 [facility] Comment on above: Performed By: #### 1 7225664, 4186638, 0352063, 3050013, 23330512 ####[facility] [address] [place] [address] Creatinine [Mass/Vol] 0.9 mg/dL Normal 0.5-1.3 [facility] Comment on above: Performed By: #### 1 4379551, 9755927, 1668793, 9476397, 57010552 ####[facility] [address] [place] [address] Glucose [Mass/Vol] 140 mg/dL Normal 55-199 [facility] Comment on above: Result Comment: If t his glucose result represents a fasting glucose, interpretation should refer to the following reference range: 55-99 mg/dL Performed By: #### 1 1403313, 2958876, 8674169, 6968056, 20047743 ####[facility] [address] [place] [address] Potassium [Moles/Vol] 3.8 mmol/L Normal 3.5-5.3 [facility] Comment on above: Performed By: #### 1 0848195, 3268140, 9475039, 4318634, 75272511 ####[facility] [address] [place] [address] Sodium [Moles/Vol] 136 mmol/L Normal 135-145 [facility] Comment on above: Performed By: #### 1 8933639, 8262556, 6713139, 4854569, 87857533 ####[facility] [address] [place] [address] Urea nitrogen [Mass/Vol] 13 mg/dL Normal 5-21 [facility] Comment on above: Performed By: #### 1 6103232, 0493017, 8141579, 8320787, 86623109 ####[facility] [address] [place] [address] Urea nitrogen/Creatinine [Mass ratio] 14 No Units Normal 10-20 [facility] Comment on above: Performed By: #### 1 7827143, 4402827, 3716554, 6163422, 10118956 ####[facility] [address] [place] [address] CBC w/ Auto Diffon 2 Erythrocyte distribution width (RBC) [Ratio] 13.3 % Normal 10.9-14.2 [facility] Comment on above: Performed By: #### 1 2943513, 5767122, 5032208, 2403571, 52112315 ####[facility] [address] [place] [address] Hematocrit (Bld) [Volume fraction] 31.7 % Low 37.7-49.0 [facility] Comment on above: Performed By: #### 1 7669051, 8518982, 4180852, 2998789, 73463959 ####[address] [place] [address] Hemoglobin (Bld) [Mass/Vol] 11.1 g/dL Low 13.5-17.5 [facility] Comment on above: Performed By: #### 1 5365573, 9903057, 9411203, 7428931, 38937925 ####[address] [place] [address] MCH (RBC) [Entitic mass] 29.9 pg Normal 27.0-34.0 [facility] Comment on above: Performed By: #### 1 6672530, 7715141, 7822091, 5353719, 92076179 ####[address] [address] MCHC (RBC) [Mass/Vol] 34.9 g/dL Normal 31.4-36.0 [facility] Comment on above: Performed By: #### 1 3103672, 0132636, 1673415, 1016290, 10255212 ####[address] [address] MCV (RBC) [Entitic vol] 85.5 fL Normal 80.0-100.0 [facility] Comment on above: Performed By: #### 1 3913655, 8291169, 3190184, 3635001, 77008753 ####[address] [address] Platelet mean volume (Bld) [Entitic vol] 7.5 fL Normal 6.4-10.8 [facility] Comment on above: Performed By: #### 1 7199389, 4349302, 5254866, 9334872, 59589733 ####[facility] [address] [place] [address] Platelets (Bld) [#/Vol] 295.0 E9/L Normal 150.0-500.0 [facility] Comment on above: Performed By: #### 1 4038576, 2326046, 0263192, 9172571, 74268596 ####[facility] [address] [place] [address] RBC (Bld) [#/Vol] 3.7 E12/L Low 4.3-5.9 [facility] Comment on above: Performed By: #### 1 6090981, 7467594, 0431041, 3934339, 18688386 ####[facility] [address] [place] [address] WBC corrected for nucl RBC Auto (Bld) [#/Vol] 12.2 E9/L High 4.0-11.0 [facility] Comment on above: Performed By: #### 1 2918130, 5834065, 8711865, 1641255, 84059171 ####[facility] [address] [place] [address] CHEMISTRYOrdered By: SYSTEM SYSTEM on 05-12-2021 Anion gap [Moles/Vol] 12 mmol/L Normal 6 - 16 mEq/L [facility] [place] Remisol Calcium [Mass/Vol] 9.0 mg/dL Normal 8.9 [...] rate/Area] mL/min/1.73 m2 Normal >=59mL/min/1. 73 m2 [facility] [place] [facility] Chem S Glucose [...] 31.1 s Normal 25.1 - 36.5 second(s) [facility] Auto Coag INR Coag (PPP) [Relative time] 1.2 {INR} Invalid Interpretation Code [facility] [place] [facility] Auto Coag PT Coag (PPP) [Time] 14.9 s High 10.2 - 12.9 second(s) [facility] [facility] Auto Coag Consent for Treatmenton 04-15 Consent for Treatment [id number]#1.0 0CD:127 Normal [facility] HEMATOLOGYOrdered By: SYSTEM SYSTEM on 05-12-2021 [...] Coag (PPP) [Time] 31.1 second(s) Normal 25.1-36.5 [facility] Comment on above: Result Comment: Hepa rin therapeutic range (represented by Anti-Factor Xa activity of 0.2 - 0.4 U/mL) corresponds to PTT of 56.6 - 109.0 sec. Performed By: #### 1 0678957, 1855285, 0475607, 0566127, 21291720 ####[facility] [address] [place] [address] INR Coag (PPP) [Relative time] 1.2 {INR} Invalid Interpretation Code [facility] Comment on above: Result Comment: INR results are specifically intended to assess patients stabilized on long-term Anticoagulation therapy suggested INR?s ?Less Intensive Anticoagulation? 2.0 ? 3.0 Conventional Range 3.0 ? 4.5 Performed By: #### 1 4790383, 7238550, 8018545, 8746781, 29975439 ####[facility] [address] [place] [address] PT Coag (PPP) [Time] 14.9 second(s) High 10.2-12.9 [facility] Comment on above: Performed By: #### 1 3950589, 2541953, 7217135, 8495428, 92135671 ####[facility] [address] [place] [address] eGFRon 05-12-2021 GFR/1.73 sq M.predicted among blacks MDRD (S/P/Bld) [Vol rate/Area] mL/min/{1.73_m2} Normal >=59 [facility] Comment on above: Order Comment: Order added by Discern Expert. Result Comment: eGFR is race adjusted. AA=. Performed By: #### 1 1884084, 0122792, 8346932, 9571300, 31350264 ####[facility] [address] [place] [address] GFR/1.73 sq M.predicted among non-blacks MDRD (S/P/Bld) [Vol rate/Area] mL/min/{1.73_m2} Normal >=59 [facility] Comment on above: Order Comment: Order added by Discern Expert. Result Comment: Roping Tender theron kidney disease could be indicated at eGFR's of less than 60 mL/min/1.73m2. Kidney failure is indicated at less than 15 mL/min/1.73m2. Performed By: #### 1 7890035, 2366928, 0263130, 9177354, 48568452 ####[facility] [address] [place] [address] Ambulatory Visit Summaryon 0 04-28-2021 Ambulatory Visit [...] influenza virus vaccine, inactivated (Fluad Quadrivalent PF [id number]) loratadine (Claritin) montelukast omeprazole (omeprazole 40 mg [...] [facility] [address], [place] [address]- Medications What How Much When Instructions Unchanged [...] body store (more content not included)... Normal [facility] Patient Educationon 04-29-19 Patient Education Nutrition [...] You could (more content not included)... Normal [facility] Urology Office/Clinic Noteon 04-28-2021 Urology Office/Clinic [...] bedtime), # 30 cap(s), Refills(s) 6, Pharmacy: [facility], 181, cm, 04/28/21 12:55:00 EDT, Height/Length Dosing, 115, kg, 04/28/21 12:55:00 EDT, Weight Dosing Efrem (more content not included)... Normal [facility] Comment on above: Result Comment: Elec [...] Charlie Farmer MD 04/10/21 Final result Normal [facility] Coding Summary.on 04-06-2021 Coding Summary. CD:[id number] Gh 0bWw+PGhlYWQ+MD8ZSGMeE 06saQHlhI3TI2cOOE5TJZO RXIHGBM3TEG9qvLI8KTzjH 2VybiAv QbkvqQOdKY80JHe6HXH6kW axQVyqcN7qkSUwS8m2JuMh RT22oT11MShtVQTpJlR5Gw ZpbjsgbWFy U0asLsNcmDWeGeb+PHRhYm xlIHdpZHRoPScxMDAlJyBz vFqmUL4qLn1pZKOcYGUdvH xhcHNlOiBj w6qiGCVgFNneLW0cmUwhW7 SttJZ9BMBro9f9Yl88yHC+ PQGdBTD9pQzpJTyga585Mr Tbs4mqYVX2 dFQqAXeyHQQ2C15pa7E3CL NqPUExPEG6tMJ7mX0xmBin btysD2DimIGsVjF6WXJ0pG LobD3mzTmc tturlL9mGkb+A74XCN9FNV JDVV5MDno3R9ZdJavrnZX+ QB33CLWoAS24uIEjtVHdn8 byyRy9OhBh GYMxCDM2kCxbIEncn4JaKI TlX51dnRDmb1U1SLLbyVlv zKUsYlWitID4vD5lYVfitx yfp9apxido Sxhio9hkou18pH94M54bMA qhFBLjGAG4BCZhQBXfmWol xo5dsI8wDn5+HDblr3kwm6 kjrLg4TcGw DKCqicIolYuyNID5u0IqGw 95N0JskLvjr1GfIuu8wx49 mPFff7L1eFJ7GInjEONfhW 3zLHikBfB7 GRSdWmYhnM41kUDyOGfbFw 2knRhewWggIK0fOOExvuwn FZXslF2wASHltAMyaUdwYG 4wNTBpbjtm r114CoVyFII1ILBqiVJnB8 RcfQ2sXxKhKKVyPGEkH5Hj yPOxDYbdE844GVclDbX9XM YyucBfR7Gq WTHacCqsDvG4n5H9Pk7Cr1 InpoapFAZ5GLinXPJaWlRz FuPbShI0Z4SdAmm4JXXipT dpJW6eB4Di CLJwdwguddxvoFE3PDWbNK CltM96mWUbMJoeSt3wi9O7 d322ZSRkWDXapP89Ns9udC ogMTBwdCBU rQ4pgkqyo1mvlmloMhQtOK RyRXd3UHb0JVGjmGilFsNb VRJ4VzB7KVI1bKTbfG1rcG zhquvmkT5o Oyc+N59sbT3vIUK2KHL2wv jpIFFcegEmBA07YO96F6Lr PjwvdGFibGU+PGRpdiBzdH ciTQ0sTaZq c3xzx5AmISsyQ2NhLRXbHV laXgl0LYXbWCJ1oYA9rT6c EVUtWKmid3W5mNX1N8Qvza Cooa9sd5br DQXoZTsaE71lyZXvp3D8EK CjyAJ2BDHvkHzpArBcpJ68 Oyc+VVYmuSczr6NdUvgmn0 avs6pjrMa7 UtHyNABhzrDwrZlgHDQ8l4 IiNc33S17mCHhlBXHmGQCs QMQvMAPwmTeohe3zxF5lPu 8+PGNvbCB3 kPZ5gY0lNPAsWkZ1SVopP9 82BhLhkDZwRqsah9gqv0mo jVc3WjBxZKAceyXorCmyDA V1q7ArOa55 E77sOBumSYQjUECxSFPfQY AkaLnahi4ccB0eSj1+PC9j v3vdys41vP40uGG+PHRkIH C0nPdjSViy OPBbtU4sAQnaDxW0HERtYb AbkQ93pOBtDTldVp8fsBzs wRzvES5mGNFmddlzw038Sr Eql6uzWXKz vNMqFMgvKLZ9C22vi5H5SX YdQTJzETA1eEJ3wA6edBhx bjogbGVmdDsgdmVydGljYW hiISmpG824 IHRvcDsnPlBhdGllbnQgTm NdZEg5K3BaFvu6UTYfwIza YM6caLVnGKtzOs0wfBpqzL miOA3aJYBe bcslt236ZkMjt2uhLDZcsD DhJOurOBZ0H24ok3J4QWFz NANdUTR6kEM8tY2tgRgqbg ogbGVmdDsg zoCqbEbeMQhrTKneM263DC RvcDsnPkJpcnRoIERhdGU6 RX14WT99oSTee1M6gXQ8U7 BhZGRpbmct zngoqHV4XXAaOPKohG24Yu 2qkBbfCs1qIXPoIFP5FAEg jNHbQ0FsmZ3cAsPxQNGpJE WzE5UzaVHo ZJkjY499FSgrCnP0FITyga OmN4ZbJWPtcUmjNwS3k6I9 Zz4CP0X7JW18ME29lZTnl8 X3dAN0K5Dv DRHuqpeyyiespHI0CHRxPB GvoG28Ml2vgNjvZd6pHFMt EBD8ESJarVYiC7VsmC1rJt AjMDAwMDAw E1KkrJQgPBscK683HPlkYl Q2LSKjsyPeM3FyLTSnoLpg UtT5q5M7Ur0CJMa6CE13AZ 12jTCtn1O0 eVV2D6OsSAAzwfnayfeplC T3LYKiQDWqcQ60Fz0egGuw Gk6oGSVuUUM1AHSlzVRcA5 KumO1hGiUy SRCaHMVuR9XteVYuZIeuY7 36MZgpHwU3XIUzmgOuQ4Pf TWWujRakWxC8g0T9Mi1NAF JzRE85XCC0 kTH1FT99PE85W0XcAcjoeQ FibGU+PHRhYmxlIHdpZHRo OUoxNEKgNmHfpYhxQD5wCp 9yZGVyLWNv xIxrpPJtWrGkd7biZHUpCK ljHS2cwIlxQ8PwlJA8LPJs y9j2Yr96C14sK2XodTO+PG PimWM2jTJ3 kQ1wRnAaXpA2FTogT637Ug EixVLhMnesv9ubn7rlmQl1 FiM3JBCixvJkaPwjAET3j1 DoCs20X70l IHdpZHRoPSIxNSUiIHZhbG uwkc7oaZ2cHv8+PGNvbCB3 jVY3vE3iZrJvTcK5IPtmY9 49InRvcCIv Wmlhs8cfy5zzfQg0EuGsDQ PwnmSbbXaaLSM2k0PbMb54 L2HgmNgwf5WeFri2sq53eQ Nhb6X3dYM4 V4StPWDgrzzazKDovSrpRE 0lMJKijfomEZDazN1fKFMf L5s9MwTxJaM9QWchI9Dmcn S4ZERjvBBk GUbvXXP9U03pc3G8HPMlEX FvPGU5sNB5dF4dzMshoeie bGVmdDsgdmVydGljYWwtYW phY429UZEd pYftZBYcmR6aPTQzeJNnbJ avXV8qVLCohvydHoQHOpkZ PeBeORJGZt4WAB14CH42wS Eka2J5gWT0 W2SePHWqoqalxrrheQN0SP TmSOMuaV44wTYwQLnfEw1f n0N8z148JAOuFMHokL08Wb 9udDogMTBw ySBFvX3itcozt8jxvjtxSb IoGELiNKf8GGp6PJMdoMzx FfNmGEU6IuJ5UIG8fRQhmT 1hbGlnbjog wP2qFti+DZrfKYEbFUc7FL wvdGQ+DKOzARQ8eSvaJEad KEIgdI8hUUKvZ5n2UtQhSt X3AJdgA5Sr AUQskgssDa88iQ6dKfUiDp Y3LFahJ7QvooZ2OQTfqEBn YAldZBW7X50rt8D1HKKdWO IjUWB2lWA3 jU9xgSablsrlxHWcxAcbne GxbVbyUNrzNMrlE653BZOn kGqaGidrCKskVMDuJQ30GT 99tOOhi2Q5 iHF3E6JpBLLyplnkzeuqrA R0ZTHqMDUtqP54uWCfIUfi Et5nd4V1v713KFBkKEVweE 30Po7kaGrk ARScxYRRhN6einldz7xuvj raOcJvXIVaRAw8KZq8CHWx rOalCeVyVAQ0BrW5RFR4uN DqmI3hqSal upysfJ4wMux+TWFsZTwvdG Q+NHTfDUX3iDwrEDvjWDGj lQ6kHLFhQ4h9TsZbGdT1WT hyA6DzVGHb jwgiVz43oR5cDaLwNjF7WA mpJ5HfvrU9SDXbmHMqOLoi LLG7J73rc8S9JXBzRASsNY D1eKE8wO5v bGlnbjogbGVmdDsgdmVydG cpOHpnXShzQ288BQAnvJvc Fx88qMNjjQzhhiW1D7MrPr wvdHI+PC90 IVLvZR55nABeoUQiw2sgxQ s3AdVcEGGgTUV2nZknYJmz q5ShZRKsV83ekLAfx5U2BR NvbGxhcHNl CtQfsZI1tA2xGVmmnujdq6 wyeozlItscq4ynqz43yC30 U33hFKjbUJRsCNWdUURbCV EfcQkods8c nH8nHo1+JPFviWB2jPJ9jN 9eGpJmNpL7BIycY959ChGt aFOfXcnxi0qaz4tqsEn7Dc IwJSIgdmFs xTmbIEU1x9UxUz48K95cUX dpZHRoPSIyMCUiIHZhbGln tz7bjN5uBt9+LK1bf1rtwo 99eN83iBL+ YIRtZHZ1vWgpVUtoLVNeqO 3oOEfyTqL8NHLiRdNkiS50 fHTsZEjlMx4yaFphwFkzCC 4wNTBpbjtm a873WtQfy0vwZEDbxVOlGR ssYJF9J74vd6W1IIUrOWYj PKW7zXN7sX9hwJepnsvssU VmdDsgdmVy kPbbJIcsTNknQ092MGRtkT itZxLmdYQnI9qbemYOYB0e OjwvdGQ+YMPoTHY6aNtpFP uwEGMpcX0a AIWhG9t5KtSkYpC4RLrqR7 YjwkZ2PSEfkUBwDWCewOCQ eF3zfvehm4nncgpbGrBfOH WjEIe8WRy6 JUDkyWohZoNiSLL3OaM7KM N8aVLkqV2amQmkgfspdD4u Oyc+RklOOjwvdGQ+PHRkIH S0cQeaIGmv HSOwvZ6xSNIaR8f8BaCoAv S8TEwtO5HqmtW1BIIxwEVy MFAgwRQMwH6oeobbn9wpax ogIzAwMDAw SPa1RNf3IRQpkNohWaSpLM F8JwG2DNQ1nMQouX8tnHda wawswH0qZik+TVJOOjwvdG Q+PHRkIHN0 oErfCErmIMJktL6bZCYbJ5 f3UrFfHoZ5BFgpT4ImefP6 PLQdmHThWGQujFOInL1wsy hxu9kiqcql XfJaXVNvFIv3EPk7CTCttX dbLpAfZXX6RgB0VOE7zARo zX0obLdgmnyxzE3jWku+UG B3XVB5LO42 AZ17Q4EyLvrreVWhvHB+PH RhYmxlIHdpZHRoPScxMDAl ZmQfcNdaZW1iHh3pIWFoLG NvbGxhcHNl OiBj (more content not included)... Normal [facility] Consent for Procedure/Surger yon 04-06-2021 Consent for Procedure/Surgery [id number]#1. 00CD:127 [facility] IntraOperative Documentson 0 04-06-2021 IntraOperative Documents [id number]#1. 00CD:127 [facility] Consent for Treatmenton 03-17 Consent for Treatment [id number] 0CD:127 [facility] Main OR Intraoperative Recor don 04-02-2021 Main OR Intraoperative Record IntraOp Document Type FTURO Summary Primary Physician: Cintia Alves Jr., MD Finalized Date/Time: 04/02/21 08:45:09 Pt. Name: KYLIE RUEDA/Sex: 1950 Male Med Rec #: [id number] Physician: Cintia Alves Jr., MD Financial #: [id number] Pt. Type: O Room/Bed: / Admit/Disch: 04/02/21 [...] [place] CST Role Performed Surgeon - Primary Ornamenter Hand - Primary Scrub - Primary Time In [...] Class 2 - Clean-Contaminated Last Modified By: IMKE Lira RN, Racquel 04/02/21 08:45:01 General Case [...] MIKE Lira RN, Ruthann 04/02/21 08:45 Normal [facility] Main OR Preoperative Recordo n 04-02-2021 Main OR Preoperative Record Holding Area Document Type FTURO Summary Primary Physician: Cintia Alves Jr., MD Finalized Date/Time: 04/02/21 08:26:32 Pt. Name: KYLIE RUEDA/Sex: 1950 Male Med Rec #: [id number] Physician: Cintia Alves Jr., MD Financial #: [id number] Pt. 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 Normal [facility] Comment on above: Result Comment: Elec [...] urine. The Urethra was dilated to: 24 Citizen Of [place] w/ sounds. Devices Implanted: None. Removal: Cystoscope is removed, The patient tolerated it well. Postoperative Information Discharge: Patient is discharged home with antibiotic coverage, Follow up arranged, This patient was started on a trial of tamsulosin 0.4 mg daily. A new prescription was sent to the pharmacy. We will plan follow-up with [facility] in the office in 1 month.. Normal [facility] Comment on above: Result Comment: Elec tronically Signed By: Cintia Alves Jr., MD\.br\Date and Time Signed: 04/02/21 08:52 EST [employer] 02-24-2021 Forms [id number] 0CD:127 Normal [facility] Patient Educationon 02-24-19 Patient Education BMI [...] height. This can be done either in [place] ([place] or metric measurements. Note that charts are available to help you find your BMI quickly and easily without having to do these calculations yourself. To calculate your BMI in [place] measurements, your health care provider will: [...] problems. ? BMI can be measured using Bangl[place]hi measurements or metric measurements. ? To interpret [...] 10/12/2004 Document Revised: 01/13/2018 Document Reviewed: 12/14/2017 [employer] Patient Education ? 2020 [employer] Nutrition BMI for Adults Body mass [...] height. This can be done either in [place] ([place] or metric measurements. Note that charts are available to help you find your BMI quickly and easily without having to do these calculations yourself. To calculate your BMI in [place] ([place] measurements, your health care provider will: [...] sq (more content not included)... Normal [facility] Urology Office/Clinic Noteon 02-24-2021 Urology Office/Clinic Note [...] day(s), # 2 tab(s), Refills(s) 0, Pharmacy: [address], 02/24 (more content not included)... Normal [facility] Comment on above: Result Comment: Elec tronically Signed By: Shawn Allen MD, Cintia Hernandez\.br\Date and Time Signed: 02/24/21 12:54 EST\.br\Electronically Co-Signed By: Vanessa Herring MA\.br\Date and Time Co-Signed: 02/24/21 12:11 EST Basic Metabolic Panel w/ Ref gee to [facility] 12-04-2019 Anion gap [Moles/Vol] 7 mmol/L Low 9 - 17 mmol/L [place] Bun/Cre Ratio 12 [place] Calcium [Mass/Vol] 8.8 mg/dL 8.6 - 10. 4 mg/dL [place] Chloride [Moles/Vol] 100 mmol/L 98 - 10 7 mmol/L [place] CO2 [Moles/Vol] 28 mmol/L 20 - 31 mmol/L [place] Creatinine [Mass/Vol] 0.68 mg/dL Low 0.7 - 1.2 mg/dL [place] GFR >60 >60 mL/min [place] GFR Non- >60 >60 mL/min [place] GFR/1.73 sq M predicted among non-blacks MDRD (S/P/Bld) [Vol rate/Area] NOT REPORTED [place] GFR/1.73 sq M predicted among non-blacks MDRD (S/P/Bld) [Vol rate/Area] [place] Comment on above: Average GFR for 70 o r more years old: 75 mL/min/1.73sq m Chronic Kidney Disease: <60 mL/min/1.73sq m Kidney failure: <15 mL/min/1.73sq m eGFR calculated using average adult body mass. Additional eGFR calculator available at: http://www.[employer]/multiple_crcl_2011.htm Glucose [Mass/Vol] 120 mg/dL High 70 - 99 mg/dL [place] Interpretation and review of laboratory results Abnormal [place] Potassium [Moles/Vol] 4.0 mmol/L 3.7 - 5.3 mmol/L [place] Sodium [Moles/Vol] 135 mmol/L 135 - 144 mmol/L [place] Urea nitrogen [Mass/Vol] 8 mg/dL 8 - 23 mg/dL [place] CBCon 12-04-2019 Erythrocyte distribution width (RBC) [Ratio] 12.1 % 11.8 - 14.4 % [place] Hematocrit (Bld) [Volume fraction] 33.1 % Low 40.7 - 50.3 % [place] Hemoglobin (Bld) [Mass/Vol] 10.9 g/dL Low 13 - 17 g/dL [place] Interpretation and review of laboratory results Abnormal [place] MCH (RBC) [Entitic mass] 29.5 pg 25.2 - 33.5 pg [place] MCHC (RBC) [Mass/Vol] 32.9 g/dL 28.4 - 34.8 g/dL [place] MCV (RBC) [Entitic vol] 89.5 fL 82.6 - 102.9 fL [place] Platelet mean volume (Bld) [Entitic vol] 8.7 fL 8.1 - 13.5 fL [place] Platelets (Bld) [#/Vol] 253 10*3/uL [place] RBC (Bld) [#/Vol] 3.70 10*6/uL Low 4.21 - 5.7 7 m/uL [place] WBC (Bld) [#/Vol] 7.9 10*3/uL [place] WBC (Bld) [#/Vol] 0.0 10*3/uL 0.0 per 10 0 WBC [place] [facility] 12-04-2019 INR Coag (PPP) [Relative time] 1.1 {INR} [place] Comment on above: Non-therapeutic Range: INR = 0.9-1.2 Therapeutic Range: Moderate Anticoagulant Intensity: INR = 2.0-3.0 High Anticoagulant Intensity: INR = 2.5-3.5 PT Coag (PPP) [Time] 13.8 s [place] FLUORO FOR SURGICAL PROCEDUR ESon 12-03-2019 Radiology exam is complete. No Radiologist dictation. Please follow up with ordering provider. [place] XR LUMBAR SPINE (2-3 VIEWS)o n 12-03-2019 [place], [facility] Incoming Radiant Results From [facility] [employer] - 12/03/2019 8:59 AM EDT EXAMINATION: SPOT [...] See separate procedure report for more information. [facility] above. See separate procedure report for more information. [facility]: SPOT FLUOROSCOPIC IMAGES 12/03/2019 8:39 [...] demonstrates pain pump catheter projecting over spine.. [facility] LAMBERT Covid-19 Ambulatoryon 2019 SARS-CoV-2, [place] Not Detected Not Detected [facility] Comment on above: (NOTE) This nucleic acid amplification test was developed and its performance characteristics determined by [facility]. Nucleic acid amplification tests include PCR and [...] detected) result in this assay. Performed At: [facility] [address] [place], [place] [id number] Carlos Young MD Ph:[phone] MRSA DNA Probe, Nasalon MRSA, DNA, Nasal NEGATIVE: MRSA DNA n ot detected by nucleic acid amplification. NEGATIVE: MRSA DNA not detected by nucleic acid amplificati [place] Comment on above: Results should be used as an adjunct to nosocomial control efforts to identify patients needing enhanced precautions. The test is not intended to identify patients with staphylococcal infections. Results should not be used to guide or monitor treatment for MRSA infections. Specimen Description .NASAL SWAB [place] APTTon 11-19-2019 aPTT Coag (Bld) [Time] 26.3 s [place], [place] Comment on above: IV Heparin Therapy Range: 62.0-94.0 Hemoglobin A1Con 11-19-2019 Glucose [Mass/Vol] 114 mg/dL [place] Comment on above: The ADA and AACC rec ommend providing the estimated average glucose result to permit better patient understanding of their HBA1c result. HbA1c (Bld) [Mass fraction] 5.6 % 4 - 6 % [place] PTon 11-19-2019 INR Coag (PPP) [Relative time] 1.0 {INR} [place] Comment on above: Non-therapeutic Range: INR = 0.9-1.2 Therapeutic Range: Moderate Anticoagulant Intensity: INR = 2.0-3.0 High Anticoagulant Intensity: INR = 2.5-3.5 PT Coag (PPP) [Time] 12.7 s [place], [place] URINALYSISon 11-19-2019 Bilirubin Urine Negative NEGATIVE [place] Color, UA YELLOW YELLOW [place] Glucose, Ur Negative NEGATIVE [place] Ketones Ql (U) Negative NEGATIVE [place] Leukocyte esterase Test strip Ql (U) Negative NEGATIVE [place] Nitrite, Urine Negative NEGATIVE [place] pH, UA 6.5 [place] Protein (U) [Mass/Vol] Negative NEGATIVE [place] Specific [place], UA 1.010 [place], [place] Turbidity UA CLEAR CLEAR [place] Urinalysis Comments Microscopic exam not performed based on chemical results unless requested in original order. [place] Urine Hgb Negative NEGATIVE [place] Urobilinogen, Urine Normal Normal [place] WRIST RIGHT 3 VWSon 03-09-19 19 WRIST RIGHT 3 VWS [facility] Department of Radiology [address] [place] [address] ======== Patient Name: KYLIE RUEDA : 1950 Sex: M Age: Race: White Pt. Location: Patient Status: O Ordered Date: 03/09/2018 12:55:00 PM Completed Date: 03/09/2018 12:54 PM Requesting Provider: CARLOS EVANS Attending Provider: CARLOS EVANS Report Copy To: JENNY CAST Signs & Symptoms: S52.541D Alves's fracture of r radius, subs for cordelia case I10 History: [place] Comments: , , , Ordering Provider - CARLOS WALTERS-C , Exam: WRIST RIGHT 3 [facility] ======== WRIST RIGHT 3 S 03/09/2018 12:54 [...] study Electronically signed by:Savannah Mark. Transcribed by: [email or web address], User Resident: Electronically Signed by: SAVANNAH MARK @ 03/09/2018 02:08 PM Normal [facility] Comment on above: Order Comment: , , = ========= , Ordering Provider - CARLOS EVANS PA-C , WRIST RIGHT 2 VWSon 01-27-20 18 WRIST RIGHT 2 S [facility] Department of Radiology [address] [place] [id number] ======== Patient Name: KYLIE RUEDA : [...] fracture Electronically signed by:Savannah Mark. Transcribed by: [email or web address], User Resident: Electronically Signed by: SAVANNAH MARK @ 01/26/2018 01:07 PM Normal [facility] Comment on above: Order Comment: , Yany ws (X-RAY, WRIST): PA, Lateral , Views (X-RAY, WRIST): PA, Lateral , , , Ordering Provider - CARLOS EVANS PA-C , WRIST RIGHT 3 [facility] 12-30-19 18 WRIST RIGHT 3 [facility] Department of Radiology [address] [place] [id number] ======== Patient Name: KYLIE RUEDA : 1950 Sex: M Age: Race: White Pt. Location: Patient Status: O Ordered Date: 12/29/2017 12:55:00 PM Completed Date: 12/29/2017 12:53 PM Requesting Provider: CARLOS EVANS Attending Provider: CARLOS EVANS Report Copy To: JENNY CAST Signs & Symptoms: S52.541A Alves's fracture of right radius, init for clos fx I10 History: [place] Comments: , Views (X-RAY, WRIST): PA, Lateral , Views (X-RAY, WRIST): PA, Lateral , , , Ordering Alisha - CARLOS EVANS PA-C , Exam: WRIST RIGHT 3 [facility] ======== WRIST RIGHT 3 [facility] 12/29/2017 12:53 PM EST SIGNS AND SYMPTOMS: [...] alignment Electronically signed by:Savannah Mark. Transcribed by: [email or web address], User Resident: Electronically Signed by: SAVANNAH MARK @ 12/29/2017 02:02 PM Normal [facility] Comment on above: Order Comment: , Yany ws (X-RAY, WRIST): PA, Lateral , Views (X-RAY, WRIST): PA, Lateral , , , Ordering Provider - CARLOS CRISTINA PA-C , WRIST RIGHT 3 [facility] 12-02-19 18 WRIST RIGHT 3 [facility] Department of Radiology [address] [place] [id number] ======== Patient Name: KYLIE RUEDA : 1950 Sex: M Age: Race: White Pt. Location: Patient Status: O Ordered Date: 12/01/2017 10:20:00 AM Completed Date: 12/01/2017 10:20 AM Requesting Provider: HEMA VILCHIS Attending Provider: HEMA VILCHIS Report Copy To: JENNY CAST Signs & Symptoms: S59.577E Oth intartic fracture of lower end of [...] alignment Electronically signed by:Savannah Mark. Transcribed by: [email or web address], User Resident: Electronically Signed by: SAVANNAH MARK @ 12/01/2017 04:09 PM Normal [facility] Comment on above: Order Comment: , Vie ws (X-RAY, WRIST): Radiologic Protocol , Weight Bearing?: N , With or Without Brace/Cast/Collar: With , Views (X-RAY, WRIST): Radiologic Protocol , Weight Bearing?: N , With or Without Brace/Cast/Collar: With , , , Ordering Provider - HEMA VILCHIS PA-C , Operative Reporton 8 Operative Report MR#: [id number] S [facility] Pt. Name: Kylie Rueda Room #: [...] tendon. Blunt dissection was carried out using [place] scissors. The tendon sheath was incised longitudinally. [...] any fracture hematoma as well as a [place]. Irrigation was then used. The fracture was [...] days. He was provided a prescription for [place] to be taken for pain. He may [...] Colón MD Date Trans: 11/18/2017 09:15 P/shane [id number] cc: Jenny Cast M.D. [address] [facility] [address] Normal [facility] POC GLUCOSE LABon 11-18-2017 Glucose mass conc 118 mg/dL High 70-100 [facility] Comment on above: Performed By: #### 8 5499 #### [address] WRIST RIGHT 2 VWSon 11-19-19 18 WRIST RIGHT 2 VWS [facility] Department of Radiology [address] [place] [id number] ======== Patient Name: KYLIE RUEDA : 1950 Sex: M Age: Race: White Pt. Location: [facility] Patient Status: O Ordered Date: 11/18/2017 10:15:00 [...] Documentation Electronically signed by:Savannah Mark. Transcribed by: [email or web address], User Resident: Electronically Signed by: SAVANNAH MARK @ 11/18/2017 12:08 PM Normal [facility] Comment on above: Order Comment: ORIF RIGHT DISTAL RADIUS APTTon 11-15-2017 aPTT Coag time (Bld) 29.2 s Normal 25.0-35.0 [facility] Comment on above: Order Comment: patie [...] THIS PURPOSE. Performed By: #### 5 6101, [address] #### [facility] [address] BASIC METABOLIC PANELon 10-0 Calcium mass conc 9.4 mg/dL Normal 8.6-10.3 [facility] Comment on above: Performed By: #### 0 0071 #### [facility] [address] [place] [address], [place] Chloride molar conc 99 mmol/L Normal 98-107 [facility] Comment on above: Performed By: #### 0 0071 #### [facility] [address] [place] [address], [place] CO2 molar conc 32 mmol/L High 21-31 [facility] Comment on above: Performed By: #### 0 0071 #### [facility] [address] [place] [address], [place] Creatinine mass conc 0.88 mg/dL Normal 0.70-1.30 [facility] Comment on above: Performed By: #### 0 0071 #### [facility] [address] [place] [address], [place] GFR/1.73 sq M predicted among blacks MDRD vol rate/area (S/P/Bld) mL/min/{1.73_m2} Normal >60 [facility] Comment on above: Performed By: #### 0 0071 #### [facility] [address] [place] [address], [place] GFR/1.73 sq M predicted among non-blacks MDRD vol rate/area (S/P/Bld) mL/min/{1.73_m2} Normal >60 [facility] Comment on above: Performed By: #### 0 0071 #### [facility] [address] [place] [address], [place] Glucose mass conc 109 mg/dL High 70-100 [facility] Comment on above: Performed By: #### 0 0071 #### [facility] [address] [place] [address], [place] Potassium molar conc 4.7 mmol/L Normal 3.5-5.1 [facility] Comment on above: Performed By: #### 0 0071 #### [facility] [address] Sodium molar conc 136 mmol/L Normal 136-145 [facility] Comment on above: Performed By: #### 0 0071 #### [facility] [address] Urea nitrogen mass conc 14 mg/dL Normal 7-25 [facility] Comment on above: Performed By: #### 0 0071 #### [facility] [address] CBC W/DIFFon 11-15-2017 ABS BASOPHILS 0.1 10*3/uL Normal 0.0-0.2 [facility] Comment on above: Performed By: #### 5 0103 #### [facility] [address] ABS IMM GRANS 0.0 10*3/uL Normal 0.0-0.2 [facility] Comment on above: Performed By: #### 5 0103 #### [facility] [address] ABS NEUTROPHILS 4.6 10*3/uL Normal 1.6-7.6 [facility] Comment on above: Performed By: #### 5 0103 #### [facility] [address] [facility]. [address] Basophils #/vol (Bld) 0.7 % Normal 0.0-1.0 [facility] Comment on above: Performed By: #### 5 0103 #### [facility] [address] Eosinophils #/vol (Bld) 0.4 10*3/uL Normal 0.0-0.5 [facility] Comment on above: Performed By: #### 5 0103 #### [facility] [address] [facility]. [address] Eosinophils/100 WBC (Bld) 4.1 % Normal 0.0-6.0 [facility] Comment on above: Performed By: #### 5 0103 #### [facility] [address] [facility]. [address] Erythrocyte distribution width Ratio (RBC) 12.3 % Normal 11.5-15.0 [facility] Comment on above: Performed By: #### 5 0103 #### [facility] [address] [facility]. [address] Hematocrit Volume Fraction (Bld) 34.9 % Low 39.0-50.0 [facility] Comment on above: Performed By: #### 5 0103 #### [facility] [address] [facility]. [address] Hemoglobin mass conc (Bld) 11.7 g/dL Low 13.0-17.0 [facility] Comment on above: Performed By: #### 5 0103 #### [facility] [address] [facility]. [address] IMMATURE GRANS 0.2 % Normal 0.0-1.0 [facility] Comment on above: Performed By: #### 5 3 #### [facility] [address] Lymphocytes #/vol (Bld) 2.5 10*3/uL Normal 1.2-4.0 [facility] Comment on above: Performed By: #### 5 3 #### [facility] [address] [place] [address], [facility] Lymphocytes/100 WBC (Bld) 29.0 % Normal 20.0-45.0 [facility] Comment on above: Performed By: #### 5 3 #### [facility] [address] [place] [address], [facility] MCH Entitic mass (RBC) 29.3 pg Normal 27.0-33.0 [facility] Comment on above: Performed By: #### 5 102 #### [facility] [address] MCHC mass conc (RBC) 33.5 g/dL Normal 32.0-35.0 [facility] Comment on above: Performed By: #### 102 #### [facility] [address] MCV Entitic volume (RBC) 87.3 fL Normal 82.0-98.0 [facility] Comment on above: Performed By: #### 5 3 #### [facility] [address] Monocytes #/vol (Bld) 1.0 10*3/uL Normal 0.1-1.0 [facility] Comment on above: Performed By: #### 5 102 #### [facility] [address] MONOS 12.0 % Normal 5.0-12.0 [facility] Comment on above: Performed By: #### 5 102 #### [facility] [address] Neutrophils/100 WBC (Bld) 54.0 % Normal 40.0-72.0 [facility] Comment on above: Performed By: #### 3 #### [facility] [address] Nucleated RBC/100 WBC Ratio (Bld) 0 % Normal 0-0 [facility] Comment on above: Performed By: #### 5 102 #### [facility] [address] PLAT CNT 288 10*3/uL Normal 150-400 [facility] Comment on above: Performed By: #### 5 102 #### [facility] [address] RBC #/vol (Bld) 4.00 10*6/uL Low 4.20-5.70 [facility] Comment on above: Performed By: #### 5 0103 #### [facility] [address] [place] [address], [facility] WBC #/vol (Bld) 8.53 10*3/uL Normal 4.00-10.60 [facility] Comment on above: Performed By: #### 5 0103 #### [facility] [address] [facility] [address] PROTHROMBIN TIMEon 8 INR Coag RelTime (PPP) 1.01 {INR} Normal 0.91-1.16 [facility] Comment on above: Order Comment: Patie [...] CHEST 1995;108:[id number]. Performed By: #### 5 6101, [address]5948 #### [facility] [address] Prothrombin time (PT) Coag time (PPP) 13.3 s Normal 12.3-14.8 [facility] Comment on above: Order Comment: Patie [...] OF SAMPLING. Performed By: #### 5 6101, 277[address] #### [facility] [address] PAIN MANAGEMENT DRUG PANEL 2 [id number] 05-04-2017 6-ACETYLMORPHINE Not Detected Normal [facility] Comment on above: Order Comment: Please call [facility] at [phone] [employer] [address] [employer] consultation or assistance with interpretation if needed. 7-AMINOCLONAZEPAM Not Detected Normal [facility] Comment on above: Order Comment: Please call [facility] at [phone] [employer] consultation or assistance with interpretation if needed. ALPRAZOLAM Not Detected Normal [facility] Comment on above: Order Comment: Please call [facility] at [phone] [employer] consultation or assistance with interpretation if needed. AMPHETAMINE Not Detected Normal [facility] Comment on above: Order Comment: Please call [facility] at [phone] [employer] consultation or assistance with interpretation if needed. BETTZ-[id number] Not Detected Normal [facility] Comment on above: Order Comment: Please call [facility] at [phone] [employer] consultation or assistance with interpretation if needed. BARITURATES Not Detected Normal [facility] Comment on above: Order Comment: Please call [facility] at [phone] [employer] consultation or assistance with interpretation if needed. Benzoylecgonine Ql (U) Not Detected Normal [facility] Comment on above: Order Comment: Please call [facility] at [phone] [employer] consultation or assistance with interpretation if needed. BUPRENORPHINE Not Detected Normal [facility] Comment on above: Order Comment: Please call [facility] at [phone] for [employer] consultation or assistance with interpretation if needed. CLONAZEPAM Not Detected Normal [facility] Comment on above: Order Comment: Please call [facility] at [phone] [employer] consultation or assistance with interpretation if needed. CODEINE URINE Not Detected Normal [facility] Comment on above: Order Comment: Please call [facility] at [phone] [employer] consultation or assistance with interpretation if needed. CREATININE URINE 102.9 mg/dL Normal 20.0-400.0 [facility] Comment on above: Order Comment: Please call [facility] at [phone] [employer] consultation or assistance with interpretation if needed. DIAZEPAM Not Detected Normal [facility] Comment on above: Order Comment: Please call [facility] Consult [employer] at [phone] [employer] consultation or assistance with interpretation if needed. EER PAIN MGT DRUG PANEL, HIGH RES See Note Normal [facility] Comment on above: Order Comment: Please call [facility] Consult [employer] at [phone] [employer] consultation or assistance with interpretation if needed. Result Comment: Acce ss [email or web address] Enhanced Report using either link below: -Direct access: [email or web address] -Enter Username, Password: [email or web address] Username: [email or web address] Password: [email or web address] Performed by [employer], [address] [place] [id number] [email or web address], Vinayak Marin MD - Lab. Director ETHYL GLUCURONIDE Not Detected Normal [facility] Comment on above: Order Comment: Please call [employer] at [phone] [employer] consultation or assistance with interpretation if needed. FENTANYL Not Detected Normal [facility] Comment on above: Order Comment: Please call [facility] at [phone] [employer] consultation or assistance with interpretation if needed. HYDROCODONE Not Detected Normal [facility] Comment on above: Order Comment: Please call [facility] at [phone] [employer] consultation or assistance with interpretation if needed. HYDROMORPHONE Present Normal [facility] Comment on above: Order Comment: Please call [facility] at [phone] [employer] consultation or assistance with interpretation if needed. LORAZEPAM Not Detected Normal [facility] Comment on above: Order Comment: Please call [facility] at [phone] [employer] consultation or assistance with interpretation if needed. MARIJUANA METABOLITE Not Detected Normal [facility] Comment on above: Order Comment: Please call [facility] at [phone] [employer] consultation or assistance with interpretation if needed. MDA Not Detected Normal [facility] Comment on above: Order Comment: Please call [facility] at [phone] [employer] consultation or assistance with interpretation if needed. MDEA- SHEEBA Not Detected Normal [facility] Comment on above: Order Comment: Please call [facility] at [phone] [employer] consultation or assistance with interpretation if needed. MDMA- ECSTASY Not Detected Normal [facility] Comment on above: Order Comment: Please call [facility] at [phone] [employer] consultation or assistance with interpretation if needed. MEPERIDINE Not Detected Normal [facility] Comment on above: Order Comment: Please call [facility] at [phone] [employer] consultation or assistance with interpretation if needed. Methadone Ql (U) Not Detected Normal [facility] Comment on above: Order Comment: Please call [facility] at [phone] [employer] consultation or assistance with interpretation if needed. METHAMPHETAMINE Not Detected Normal [facility] Comment on above: Order Comment: Please call [facility] at [phone] [employer] consultation or assistance with interpretation if needed. METHYLPHENIDATE Not Detected Normal [facility] Comment on above: Order Comment: Please call [facility] at [phone] [employer] consultation or assistance with interpretation if needed. MIDAZOLAM Not Detected Normal [facility] Comment on above: Order Comment: Please call [facility] at [phone] [employer] consultation or assistance with interpretation if needed. MORPHINE Not Detected Normal [facility] Comment on above: Order Comment: Please call [facility] at [phone] [employer] consultation or assistance with interpretation if needed. NORBUPRENORPHINE Not Detected Normal [facility] Comment on above: Order Comment: Please call [facility] at [phone] [employer] consultation or assistance with interpretation if needed. NORDIAZEPAM Present Normal [facility] Comment on above: Order Comment: Please call [facility] at [phone] [employer] consultation or assistance with interpretation if needed. NORFENTANYL Not Detected Normal [facility] Comment on above: Order Comment: Please call [facility] at [phone] [employer] consultation or assistance with interpretation if needed. NORHYDROCODONE Not Detected Normal [facility] Comment on above: Order Comment: Please call [facility] at [phone] [employer] consultation or assistance with interpretation if needed. NOROXYCODONE Present Normal [facility] Comment on above: Order Comment: Please call [facility] at [phone] [employer] consultation or assistance with interpretation if needed. NOROXYMORPHONE Not Detected Normal [facility] Comment on above: Order Comment: Please call [facility] at [phone] [employer] consultation or assistance with interpretation if needed. OXAZEPAM Present Normal [facility] Comment on above: Order Comment: Please call [facility] at [phone] [employer] consultation or assistance with interpretation if needed. OXYCODONE Present Normal [facility] Comment on above: Order Comment: Please call [facility] at [phone] [employer] consultation or assistance with interpretation if needed. OXYMORPHONE Not Detected Normal [facility] Comment on above: Order Comment: Please call [facility] at [phone] [employer] consultation or assistance with interpretation if needed. PAIN MANAGEMENT DRUG PANEL See Below Normal [facility] Comment on above: Order Comment: Please call [facility] at [phone] [employer] consultation or assistance with interpretation if needed. [...] developed and its performance characteristics determined by [employer]. The U.S. Food and Drug Administration has not approved or cleared this test; however, FDA clearance or approval is not currently required for clinical use. The results are not intended to be used as the sole means for clinical diagnosis or patient management decisions. PCP Not Detected Normal [facility] Comment on above: Order Comment: Please call [facility] Consult [employer] at [phone] [employer] consultation or assistance with interpretation if needed. PHENTERMINE Not Detected Normal [facility] Comment on above: Order Comment: Please call [facility] Consult [employer] at [phone] [employer] consultation or assistance with interpretation if needed. Protein mass conc Not Detected Normal [facility] Comment on above: Order Comment: Please call [facility] Consult [employer] at [phone] [employer] consultation or assistance with interpretation if needed. Result Comment: The carisoprodol immunoassay has cross-reactivity to carisoprodol and meprobamate. TAPENTADOL Not Detected Normal [facility] Comment on above: Order Comment: Please call [facility] at [phone] [employer] consultation or assistance with interpretation if needed. [id number]-TTPV Not Detected Normal [facility] Comment on above: Order Comment: Please call [facility] at [phone] [employer] consultation or assistance with interpretation if needed. TEMAZEPAM Present Normal [facility] Comment on above: Order Comment: Please call [facility] at [phone] [employer] consultation or assistance with interpretation if needed. TRAMADOL Not Detected Normal [facility] Comment on above: Order Comment: Please call [facility] at [phone] for Senior [employer] [address] [employer] Developer consultation or assistance with interpretation if needed. ZOLPIDEM Not Detected Normal [facility] Comment on above: Order Comment: Please call [facility] at [phone] Sql Developer consultation or assistance with interpretation if needed. Vital Signs Date Time Vital Sign Value Performing Clinician Didi yepez 05-11-2023 11:13040 Body height 177.8 cm Tonja BAH Work Phone: [facility] 05-11-2023 11:13040 Body mass index (BMI) [Ratio] 36.92 kg/m2 Tonja Coburn APRN-MICHELLE Work Phone: [facility] 05-11-2023 11:13040 Body weight 116.71 kg Tonja BAH Work Phone: [facility] 05-11-2023 11:13-0400 Diastolic blood pressure 78 mm[Hg] Tonja Coburn APRN-MICHELLE Work Phone: [facility] 05-11-2023 11:13040 Heart rate 70 /min Tonja Coburn APRN-MICHELLE Work Phone: [facility] 05-11-2023 11:13-0400 Systolic blood pressure 128 mm[Hg] Tonja Coburn APRN-MICHELLE Work Phone: [facility] 05-03-2023 14:25-0400 Body mass index (BMI) [Ratio] 36.6 kg/m2 Rosa Maria Rome MD Work Phone: [facility] 05-03-2023 14:25-0400 Body weight 115.71 kg Rosa Maria infante MD Work Phone: [facility] [employer] 05-03-2023 14:25-0400 Diastolic blood pressure 79 mm[Hg] Rosa Maria Rome MD Work Phone: [facility] 05-03-2023 14:25-0400 Heart rate 79 /min Rosa Maria infante MD Work Phone: [facility] 05-03-2023 14:25-0400 Systolic blood pressure 132 mm[Hg] Rosa Maria Rome MD Work Phone: [facility] 04-15-2023 09:54-0500 Body height 177.8 cm Soumya Marie MD Work Phone: [facility] [employer] 04-15-2023 09:54-0500 Body mass index (BMI) [Ratio] 35.87 kg/m2 Soumya Marie MD Work Phone: [facility] 04-15-2023 09:54-0500 Body weight 113.4 kg Soumya Marie MD Work Phone: [facility] [employer] 04-15-2023 09:54-0500 Diastolic blood pressure 88 mm[Hg] Soumya Marie MD Work Phone: [facility] 04-15-2023 09:54-0500 Heart rate 73 /min Soumya Marie MD Work Phone: [facility] 04-15-2023 09:54-0500 SaO2% (BldA) [Mass fraction] 98 % Soumya Marie MD Work Phone: [facility] [employer] 04-15-2023 09:54-0500 Systolic blood pressure 148 mm[Hg] Soumya Marie MD Work Phone: [employer] 12-01-2021 14:28-0400 SaO2% (BldA) [Mass fraction] 89.9 % VERNELL WILKERSON [facility] Resp Auto SS 06-09-2021 11:04-0400 Blood Pressure Location Cintia Alves Jr. [facility] 06-09-2021 11:04-0400 Diastolic blood pressure 76 mm[Hg] Cintia Alves Jr. [facility] 06-09-2021 11:04-0400 Heart rate 63 /min Cintia Alves Jr. [facility] 06-09-2021 11:04-0400 Respiratory rate 16 /min Cintia Alves Jr. [facility] 06-09-2021 11:04-0400 Systolic blood pressure 120 mm[Hg] Cintia Alves Jr. [facility] 05-12-2021 08:37-0400 Blood Pressure Location Cintia Alves Jr. [facility] 05-12-2021 08:37-0400 Body temperature 97.52 [degF] Cintia Alves Jr. [facility] 05-12-2021 08:37-0400 Diastolic blood pressure 73 mm[Hg] Cintia Alves Jr. [facility] 05-12-2021 08:37-0400 Heart rate 79 /min Cintia Alves Jr. [facility] 05-12-2021 08:37-0400 Mean blood pressure 87 mm[Hg] Cintia Alves Jr. [facility] 05-12-2021 08:37-0400 Systolic blood pressure 115 mm[Hg] Cintia Alves Jr. [facility] 05-12-2021 08:36-0400 Blood Pressure Location Cintia Alves Jr. [facility] 05-12-2021 08:36-0400 Diastolic blood pressure 74 mm[Hg] Cintia Alves Jr. [facility] 05-12-2021 08:36-0400 Heart rate 78 /min Cintia Alves Jr. [facility] 05-12-2021 08:36-0400 Mean blood pressure 93 mm[Hg] Cintia Alves Jr. [facility] 05-12-2021 08:36-0400 Respiratory rate 18 /min Cintia Alves Jr. [facility] 05-12-2021 08:36-0400 SaO2% (BldA) [Mass fraction] 94 % Cintia Alves Jr. [facility] 05-12-2021 08:36-0400 Systolic blood pressure 132 mm[Hg] Cintia Alves Jr. [facility] 12-04-2019 07:25-0400 Body Temperature 98.6 [degF] [facility] [place] 12-04-2019 07:25-0400 BP Diastolic 86 mm[Hg[facility] [place] 12-04-2019 07:25-0400 BP Systolic 158 mm[Hg] [facility] [place] 12-04-2019 07:25-0400 Pulse (Heart Rate) 63 /min [facility] [place] 12-04-2019 07:25-0400 Pulse Oximetry 94 % [place] 12-04-2019 07:25-0400 Respiratory Rate 16 /min Boy L[place], [place] 12-04-2019 04:00-0400 BMI (Body Mass Index) 34.07 kg/m2 [place] 12-04-2019 04:00-0400 Body weight 110.81 kg [place] 12-03-2019 06:32-0400 Height 180.3 cm [place] 11-19-2019 13:41-0400 BP Diastolic 95 mm[Hg] [address] 11-19-2019 13:41-0400 BP Systolic 151 mm[Hg] [address] 11-19-2019 12:18-0400 BMI (Body Mass Index) 32.62 kg/m2 [address] 11-19-2019 12:18-0400 Body Temperature 98.1 [degF] [address] 11-19-2019 12:18-0400 Body weight 106.[address] 11-19-2019 12:18-0400 Height 180.[address] 11-19-2019 12:18-0400 Pulse (Heart Rate) 67 /min [address] 11-19-2019 12:18-0400 Pulse Oximetry 98 % [address] 11-19-2019 12:18-0400 Respiratory Rate 18 /min [address] Encounters Encounter Date Encounter Type Care Provider Facility Start: 06-17-2023 End: 06-17-2023 [facility] Start: 06-16-2023 End: 06-16-2023 [facility] Start: 06-13-2023 End: 06-13-2023 [facility] Start: 06-12-2023 End: 06-16-2023 Evaluation and management of inpatient LYSSA CARDENAS [facility] Start: 06-11-2023 End: 06-16-2023 Evaluation and management of inpatient ANJELICA LLAMAS [facility] Start: 06-11-2023 End: 06-16-2023 Evaluation and management of inpatient JENNY A [facility] Start: 06-11-2023 End: 06-12-2023 Emergency department patient visit [facility] Start: 06-11-2023 Encounter for other preprocedural examination ANA Ariza [facility] Start: 05-20-2023 End: 05-21-2023 ambulatory [facility] Start: 05-12-2023 End: 05-13-2023 ambulatory [facility] Start: 05-11-2023 End: 05-11-[address] 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; Late effects of cerebrovascular disease; Cerebrovascular accident (CVA) due to occlusion of left middle cerebral artery ([facility]) Start: 05-03-2023 End: 05-03-2023 ambulatory [facility] Start: 05-03-2023 End: 05-03-2023 Office consultation new/estab patient 60 min Rosa Maria Rome MD Work Phone: [facility] Comment on above: Adrenal disorder ( S-HCC) Start: 05-02-2023 Sukumar Michel MD Work Phone: [facility] Start: 04-15-2023 End: 04-15-2023 ambulatory [place] [facility] Start: 04-15-2023 End: 04-15-2023 Office outpatient visit 25 minutes Carolina Richard MD Work Phone: [facility] Comment on above: 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) ([facility]) (Primary Dx); Syncope, unspecified syncope type; Hypertension, unspecified type Start: 04-14-2023 Telephone encounter Desirae Herrera CMA [facility] Start: 03-24-2023 End: 03-24-2023 [facility] Start: 03-21-2023 Telephone encounter Maxwell loyola MD Work Phone: [facility] Comment on above: Hospital Follow-up Start: 03-19-2023 End: 03-22-2023 Evaluation and management of inpatient [facility] Start: 03-18-2023 End: 03-22-2023 Evaluation and management of inpatient [facility] Start: 03-17-2023 End: 03-22-2023 Evaluation and management of inpatient [facility] Start: 03-15-2023 End: 03-22-2023 Evaluation and management of inpatient [facility] Start: 03-14-2023 End: 03-15-2023 Emergency department patient visit [facility] Start: 02-10-2023 End: 02-11-2023 ambulatory [facility] Start: 01-31-2023 End: 02-01-[address] [facility] Start: 04-19-2022 End: 04-19-[address] JENNY CAST Facility:[facility] Start: 01-24-2022 End: 01-24-[address] BECK SAENZ Facility:[facility] Start: 12-01-2021 End: 12-02-2021 ambulatory VERNELL WILKERSON Facility:[facility] Start: 12-01-2021 End: 12-02-2021 ambulatory VERNELL WILKERSON . Facility:[facility] Start: 12-01-2021 End: 12-01-2021 Lab Drop off VERNELL WILKERSON [facility] Start: 11-09-2021 End: 11-10-[address] KAY MARROQUIN Facility: Start: 08-18-2021 End: 08-19-2021 ambulatory Cintia Alves Facility:[facility] Start: 08-18-2021 End: 08-18-2021 Patient encounter procedure Cintia Alves Jr. [facility] Start: 06-09-2021 ambulatory Cintia Alves Facility:[facility] Start: 06-09-2021 End: 06-10-2021 ambulatory Cintia Alves Facility:[facility] Start: 06-09-2021 End: 06-09-2021 Patient encounter procedure Cintia Alves Jr. [facility] Start: 05-21-2021 End: 05-21-2021 ambulatory Cintia Alves Facility:[facility] Start: 05-20-2021 Encounter for preprocedural cardiovascular examination DR CINTIA Banuelos [facility] Start: 05-16-2021 End: 05-17-[address] CINTIA Banuelos Facility: Start: 05-15-2021 ambulatory Cintia Alves Facility:[facility] Start: 05-12-2021 End: 05-13-2021 ambulatory Cintia Alves Facility:[facility] Start: 05-12-2021 End: 05-12-2021 Patient encounter procedure Cintia Alves Jr. [facility] Start: 04-30-2021 ambulatory Cintia Alves Facility:[facility] Start: 04-28-2021 End: 04-29-2021 ambulatory Cintia Alves Facility:[facility] Start: 04-10-2021 End: 04-13-2021 ambulatory [facility] Start: 04-02-2021 End: 04-03-2021 ambulatory Cintia Alves Facility:[facility] Start: 03-31-2021 End: 04-03-2021 ambulatory AZUCENA EVANS [facility] Start: 02-25-2021 ambulatory Cintia Alves Facility:[facility] [...] End: 03-10-2018 Patient encounter procedure CARLOS EVANS Facility:[facility] Start: 01-26-2018 End: 01-27-2018 Patient encounter procedure CARLOS EVANS Facility:[facility] Start: 12-29-2017 End: 12-30-2017 Patient encounter procedure CARLOS EVANS Facility:[facility] Start: 12-01-2017 End: 12-02-2017 Patient encounter procedure HEMA VILCHIS Facility:[facility] Start: 11-18-2017 End: 11-19-2017 Patient encounter procedure KRISHNA CHRISTIAN Facility:[facility] Start: 11-15-2017 Encounter for other specified special examinations CARLOS EVANS [facility] Start: 11-15-2017 End: 11-16-2017 Patient encounter procedure CARLOS EVANS Facility:[facility] Start: 11-15-2017 Patient encounter status Nathaly Milligan MD Work Phone: [facility] Start: 07-25-2017 End: 07-26-2017 Patient encounter procedure JAYESH LAZO Facility:[facility] Start: 05-27-2017 End: 05-28-2017 Patient encounter procedure TONJA COBURN Facility:[facility] Start: 05-04-2017 End: 05-05-2017 Patient encounter procedure Maira Alyssa Facility:[facility] Encounter for other specified special examinations CARLOS EVANS [facility] Procedures Date Procedure Procedure Detail Performing Clinician Start: 05-11-2023 Follow-up visit Follow-up CIPRIANO COBURN Start: 05-11-2023 Adult depression scr eening assessment Tonja Coburn VARS[employer]BALL COACH-FRENCH TUTOR Work Phone: Start: 04-15-2023 Follow-up visit Follow-up [...] Start: 11-19-2019 Thromboplastin time partial plasma/whole blood Byo Polk Work Phone: Start: 11-19-2019 Urnls dip [...] Td Vaccines (2 - Td or Tdap) [facility] Start: 10-31-2029 DTaP/Tdap/Td vaccine (2 - Td) DTaP/Tdap/Td vaccine (2 - Td) [place] Start: 05-10-2024 Adult BMI Screening [facility] Start: 05-10-2024 Depression Screening Depression Screening [facility] Start: 05-10-2024 Tobacco Screening Tobacco [facility]ening [facility] Start: 05-02-2024 Adult BMI Screening Adult [facility] Screening [facility] Start: 05-02-2024 Tobacco Screening Tobacco [facility]ening [facility] Start: 04-14-2024 Adult BMI Screening Adult [facility] Screening [facility] Start: 04-14-2024 Tobacco Screening [facility]ening [facility] Start: 03-19-2024 Adult BMI Screening Adult [facility]ening [facility] Start: 03-16-2024 Depression Screening Depression Screening [facility] Start: 09-22-2023 Tobacco Screening Tobacco [facility]ening [facility] Start: 08-25-2023 End: 08-25-2023 Patient encounter procedure 08/25/2023 2:15 PM EDT Appointment [facility] [address] [place] [address] [facility] Start: 08-23-2023 End: 08-23-2023 Patient encounter procedure 08/23/2023 2:30 PM EDT Office Visit [facility] [address] [place] [address] Kaykay Michel MD [address] [place] [address] [facility] Start: 08-12-2023 End: 08-12-2023 Patient encounter procedure 08/12/2023 10:15 AM EDT Office Visit [facility] [address] [place] [address] Rosa Maria Rome MD [address] [place] [address] [facility] Start: 05-12-2023 End: 05-12-2023 Patient encounter procedure 05/12/2023 1:15 PM EDT Appointment [facility] [address] [place] [address] [facility] Start: 05-03-2023 End: 05-03-2023 Patient encounter procedure 05/03/2023 2:00 PM EDT Office Visit [facility] [address] [place] [address] Rosa Maria Rome MD [address] [place] [address] [facility] Start: 04-22-2023 End: 04-14-2024 Wireless Telemetry (In Office) Wireless Telemetry (In Office) Cardiac Services Routine Syncope, unspecified syncope type Expected: 04/22/2023 (Approximate), Expires: 04/14/2024 [facility] Work Phone: Comment on above: Expected: 04/22/2023 (Approximate), Expi res: 04/14/2024 Start: 04-15-2023 End: 04-15-2023 Patient encounter procedure 04/15/2023 10:15 AM EST Office Visit [facility] [address] [place] [address] Carolina Richard MD [address] [place] [address] Soumya Marie MD [address] [place] [address] [facility] Start: 10-15-2022 COVID-19 Vaccine ( season) COVID-19 Vaccine () [facility] Start: 08-24-2022 ambulatory Ambulatory Facility:[facility] Start: 12-03-2019 End: 12-03-2019 Hospital Encounter [facility] Comment on above: INTRATHECAL PUMP REPLACEMENT AND CATHETE R REVISION Start: 11-29-2019 End: 11-29-2019 Appointment 11/29/2019 Appointment Pre-Admission Testing [facility] PRE-ADMIT TESTING Start: 11-19-2019 Annual Wellness Visit (AWV) Annual Wellness Visit (AWV) [place] Start: 10-16-2019 Influenza vaccination Flu vaccine (#1) [place], [place] Start: 2013 Fall Risk Screening Fall Risk Screening [facility] Start: 1998 Screening for malignant neoplasm of colon Colon cancer screen colonoscopy [place], [place] Start: 08-29-1967 DTaP/Tdap/Td vaccine (1 - Tdap) DTaP/Tdap/Td vaccine (1 - Tdap) [place] Start: 1966 Adult BMI Follow Up Plan Adult BMI Follow Up Plan [facility] Start: 1958 Lipid panel Lipid screen [place], [place] Start: 1948 Abdominal aortic aneurysm screening AAA screen [facility] Start: 1948 Creatinine measurement Creatinine monitoring [facility] Start: 1948 Hepatitis C screening Hepatitis C screen [facility] Start: 1948 Medicare Annual Wellness Visit Medicare Annual Wellness Visit [facility] Start: 1948 Potassium monitoring Potassium monitoring [facility] End: 05-02-2024 ACTH ACTH Lab Routine Adrenal disorder ([facility]) 1 Occurrences starting 05/03/2023 until 05/02/2024 [facility] Comment on above: 1 Occurrences starting 05/03/2023 until 05/02/2024 End: 05-02-2024 Aldosterone Note: Restrict Location Aldosterone Note: Restrict Location Lab Routine Adrenal disorder ([facility]) 1 Occurrences starting 05/03/2023 until 05/02/2024 [facility] Comment on above: 1 Occurrences starting 05/03/2023 until 05/02/2024 End: 05-02-2024 Comprehensive metabolic 2000 panel - Serum or Plasma Comprehensive metabolic panel Lab Routine Adrenal disorder ([facility]) 1 Occurrences starting 05/03/2023 until 05/02/2024 [facility] Comment on above: 1 Occurrences starting 05/03/2023 until 05/02/2024 Continuous pulse oximetry Pulse oximetry, continuous Respiratory Care Routine Every 4hr until discontinued starting 12/03/2019 [place] Comment on above: Every 4hr until discontinued starting End: 05-02-2024 Cortisol Cortisol Lab Routine Adrenal disorder ([facility]) 1 Occurrences starting 05/03/2023 until 05/02/2024 [facility] Comment on above: 1 Occurrences starting 05/03/2023 until 05/02/2024 End: 11-29-2019 COVID-19 COVID-19 Lab Routine One Time for 1 Occurrences starting 11/29/2019 until 11/29/2019 [place] Comment on above: One Time for 1 Occurrences starting 11/14 until 11/29/2019 End: 05-02-2024 DHEA-sulfate DHEA-sulfate Lab Routine Adrenal disorder ([facility]) 1 Occurrences starting 05/03/2023 until 05/02/2024 [facility] Comment on above: 1 Occurrences starting 05/03/2023 until 05/02/2024 Intermittent pulse oximetry Pulse Oximetry Spot Check Respiratory Care Routine As Needed until discontinued starting 12/03/2019 [facility] Comment on above: As Needed until discontinued starting End: 05-02-2024 Metanephrines, Fract Free Metanephrines, Fract Free Lab Routine Adrenal disorder ([facility]) 1 Occurrences starting 05/03/2023 until 05/02/2024 [facility] Work Phone: Comment on above: 1 Occurrences starting 05/03/2023 until 05/02/2024 Oxygen therapy [Minimum Data Set] Initiate Oxygen Therapy Protocol Respiratory Care Routine Daily until discontinued starting 12/03/2019 [facility] Comment on above: Daily until discontinued starting 2019 End: 05-02-2024 Renin Activity Renin Activity Lab Routine Adrenal disorder ([facility]) 1 Occurrences starting 05/03/2023 until 05/02/2024 [facility] Comment on above: 1 Occurrences starting 05/03/2023 until 05/02/2024 Wireless Telemetry ( In Office) Wireless Telemetry (In Office) Cardiac Services Routine Syncope, unspecified syncope type 04/15/2023 10:45 AM EST [facility] Immunizations Immunization Date Immunization Notes Care Provider Hallie nixon 11-08-2022 Influenza, High-dose , Quadrivalent Maxwell Milligan MD [facility] 11-08-2022 RSV, recombinant, protein subunit RSVpreF, adjuvant reconstituted, 0.5 mL, PF Maxwell Milligan MD Work [facility] 10-23-2020 Influenza Vaccine, Quadrivalent, Adjuvanted Maxwell Milligan MD Work [facility] 07-16-2020 SARS-CoV-2 (COVID-19 ) Ad26 vaccine, recombinant Cintia Alves Jr. [facility] 06-18-2020 SARS-CoV-2 (COVID-19 ) Ad26 vaccine, recombinant Cintia Shawn Allen [facility] 04-28-2020 COVID-19, mRNA, LNP- S, PF, 30mcg/0.3mL Dose Maxwell Milligan MD Work Phone: [facility] 04-07-2020 COVID-19, mRNA, LNP- S, PF, 30mcg/0.3mL Dose Maxwell Milligan MD Work Phone: [facility] 11-01-2019 influenza, injectabl e, quadrivalent, preservative free Maxwell Milligan MD Work Phone: [facility] 11-01-2019 Influenza, Quadv, adjuvanted, 65 yrs +, IM, PF (Fluad) [address] 11-01-2019 tetanus toxoid, redu rich diphtheria toxoid, and acellular pertussis vaccine, adsorbed [address], [place] 12-07-2018 Seasonal trivalent influenza vaccine, adjuvanted, preservative free Maxwell Milligan MD Work Phone: [facility] 10-26-2017 Seasonal trivalent influenza vaccine, adjuvanted, preservative free [address], [place] 10-26-2017 zoster vaccine recombinant [address] 06-22-2017 zoster vaccine recombinant [address] 09-27-2016 Seasonal trivalent influenza vaccine, adjuvanted, preservative free [address] 11-06-2015 influenza, high dose seasonal, preservative-free [address] 11-06-2015 pneumococcal conjuga te vaccine, [address] 10-31-2015 pneumococcal conjuga te vaccine, [address], [place] 10-28-2014 influenza, high dose seasonal, preservative-free [address], [place] 10-18-2013 pneumococcal polysaccharide vaccine, [address] Payers Date Payer Category Payer Private Health Insurance [employer] [id number] 2013-Present [address] [address] [place] [address] [id number] 1985 Medicare MEDICARE MEDICAR E PART A & B [id number] 1985-Present [phone] [address] [place] [address] [id number] 1959 Medicare [id number] 1959 Unknown [id number] 1948 Unknown [id number] 1948 Unknown [id number] 2.16.840.1.902316.3.579 .2.647 1950 Unknown [id number] 2.16.840.1.057948.3.579 .2.647 1950 Unknown [id number] 2.16.840.1.340591.3.579 .2.647 1950 Unknown [id number] 2.16.840.1.752463.3.579 .2.647 1950 Unknown [id number] 2.16.840.1.879022.3.579 .2.647 1950 Unknown [id number] 2.16.840.1.795958.3.579 .2.647 1950 Unknown [id number] 2.16.840.1.484840.3.579 .2.647 1950 Unknown [id number] 2.16.840.1.383310.3.579 .2.647 1950 Unknown [id number] 2.16.840.1.589368.3.579 .2.177 1950 Unknown [id number] 2.16.840.1.291949.3.579 .2.177 1948 Unknown [id number] 2.16.840.1.542929.3.579 .2.177 1948 Unknown [id number] 2.16.840.1.293708.3.579 .2. 1950 Unknown [id number] 2.16.840.1.392254.3.579 .2. 1950 Unknown [id number] 2.16.840.1.851654.3.579 .2. 1948 Unknown [id number] 2.16.840.1.899464.3.579 .2 1950 Unknown [id number] 2.16.840.1.098414.3.579 .2 1950 Unknown [id number] 2.16.840.1.224469.3.579 .2 1948 Unknown [id number] 2.16.840.1.385054.3.579 .2 1948 Unknown [id number] 2.16.840.1.091120.3.579 .2 1948 Unknown [id number] 2.16.840.1.098568.3.579 .2 1948 Unknown [id number] 2.16.840.1.148795.3.579 .2 1948 Unknown [id number] 2.16.840.1.833646.3.579 .2 1948 Unknown [id number] 2.16.840.1.364309.3.579 .2 1948 Unknown [id number] 2.16.840.1.728936.3.579 .2 1948 Unknown [id number] 2.16.840.1.913552.3.579 .2.593 1948 Unknown [id number] 2.16.840.1.689113.3.579 .2.593 1948 Unknown [id number] 2.16.840.1.222635.3.579 .2.593 1948 Unknown [id number] 2.16.840.1.100532.3.579 .2.593 1948 Unknown [id number] 2.16.840.1.050748.3.579 .2.593 1948 Unknown [id number] 2.16.840.1.804204.3.579 .2.1285 1948 Unknown [id number] 2.16.840.1.493523.3.579 .2.1285 1948 Unknown [id number] 2.16.840.1.601426.3.579 .2.1285 1948 Unknown [id number] 2.16.840.1.668141.3.579 .2.1285 1948 Unknown [id number] 2.16.840.1.167594.3.579 .2.1285 1948 Unknown [id number] 2.16.840.1.387371.3.579 .2.1285 1948 Unknown [id number] 2.16.840.1.434945.3.579 .2.1285 1948 Unknown [id number] 2.16.840.1.857918.3.579 .2.1285 1948 Unknown [id number] 2.16.840.1.943071.3.579 .2.1285 1948 Unknown [id number] 2.16.840.1.891851.3.579 .2.1285 1948 Unknown [id number] 2.16.840.1.594887.3.579 .2.1285 1948 Unknown [id number] 2.16.840.1.590120.3.579 .2.1285 1948 Unknown [id number] 2.16.840.1.694838.3.579 .2.1285 1948 Unknown [id number] 2.16.840.1.444165.3.579 .2.1285 1948 Unknown [id number] 2.16.840.1.062373.3.579 .2.1285 1948 Unknown [id number] 2.16.840.1.610267.3.579 .2.1285 1948 Unknown [id number] 2.16.840.1.074480.3.579 .2.1285 1948 Unknown [id number] 2.16.840.1.375441.3.579 .2.1285 1948 Unknown [id number] 2.16.840.1.852489.3.579 .2.1285 1948 Unknown [id number] 2.16.840.1.997753.3.579 .2.1285 1948 Unknown [id number] 2.16.840.1.661672.3.579 .2.1285 1948 Unknown [id number] 2.16.840.1.744099.3.579 .2.1285 1948 Unknown [id number] 2.16.840.1.631375.3.579 .2.1285 1948 Unknown [id number] 2.16.840.1.961392.3.579 .2.1285 1948 Unknown [id number] 2.16.840.1.785514.3.579 .2.1285 1948 Unknown [id number] 2.16.840.1.950798.3.579 .2.1285 1948 Unknown [id number] 2.16.840.1.303760.3.579 .2.1286 1948 Unknown [id number] 2.16.840.1.423598.3.579 .2.1286 1948 Unknown [id number] 2.16.840.1.206975.3.579 .2.1286 1948 Unknown [id number] 2.16.840.1.100675.3.579 .2.1286 Medicare [id number] Social History Date Type Detail Facility Start: 11-19-2019 End: 01-19-2022 Tobacco smoking status NHIS Former smoker [place] End: 03-08-2007 History of tobacco use Cigarette Smoker [place] Start: 11-19-2019 End: 01-19-2022 Tobacco use and exposure Never used [place] Start: 11-19-2019 End: 12-03-2019 Alcohol intake Ex-drinker (finding) [facility] Start: 11-19-2019 Tobacco Comment quit smoking 1 2 years ago (written 11/19/2019) [place] Start: 1950 Sex Assigned At Not on file [place] Exposure to SARS-CoV -2 (event) Not sure [place] Start: 03-12-2020 End: 03-16-2023 Sex Assigned At Male [facility] End: 03-08-2007 History of tobacco use Current smoker [facility] Start: 03-12-2020 End: 01-19-2022 Cigarettes smoked current (pack per day) - Reported 1 [facility] Start: 09-21-2022 End: 05-11-2023 Alcohol intake Current non-drinker of alcohol (finding) [facility] How often to you hav e a drink containing alcohol? Never [facility] How many standard drinks containing alcohol do you have on a typical day? Patient does not drink [facility] Medical Equipment Procedure Code Equipment Code Equipment Origin al Text Equipment Identifier Dates Pump Infuse Pain Synchromed Ii 40ml - [id number] Start: 12-03-2019 Cath Ascenda 114cm [id number] Start: 12-03-2019 Cap Lck Quartex Spne Thrd Rpl Special [id number] - [id number] Start: 03-24-2022 Dilaudid Infusio n Pump-06/21/2013 [id number] Start: 06-21-2013 Comment on above: Description: 1.5T/3T head/torso/extremity Cezar Spnl Quartex 55mm 4mm Crv Ns Lf - [id number] Start: 03-24-2022 Screw Bn 14mm 3.5mm Pa Spne Quartex Ns Lf - [id number] Start: 03-24-2022 Goals Date Patient Goal Desired Activity /State Personal health goal Comment on above: Formatting of this n ote might be different from the original. Evaluation of progress towards goal: Pt will return to his AL facility. Functional Status Date Assessment Result Facility 08-18-2021 Functional Status N/A [facility] Clinical Notes 04-02-2021 to 05-11-2023 Tonja Coburn APRN-FRENCH TUTOR - 05/11/2023 11:30 AM EDTPatient Landon Rome MD - 05/03/2023 2:00 PM EDTPatient InstructionsSoumya Marie MD - 04/15/2023 10:15 AM EST Note Date & Type Note Facility 05-11-2023 History of Present illness Narrative Images from the original note were not included. [address] [facility] [address] Patient: Kylie Rueda Date of : 1950 [...] information: Currently resides in [facility]. He drove self to appointment. He comments [...] symptoms. On 03/14/2023 he was evaluated at [facility] for episodes of unresponsiveness, reported could not feel his legs, able to follow some commands. Stroke Alert. Diagnosis Altered mental status, weakness in extremities. Transferred to [facility] inpatient 03/15/2023 - 03/21/2023 Primary discharge diagnosis: [...] He underwent neck surgery on 03/24/2022 at [facility]. Posterior laminectomy fusion C3-C6. Headache characteristics: Date [...] head and behind eyes (mostly right) or bahai. 05/11/2023 back of neck - Radiation: None [...] 6 hours administered [facility] at [facility]. Other treatments: 05/11/2023 Dilaudid Pain pump [...] are clear. The flow voids of the [place] are visualized, implying that the [...] prostate hyperplasia Cataract CHF (congestive heart failure) ([facility]) Chronic constipation Chronic pain syndrome COPD (chronic obstructive pulmonary disease) ([facility]) Dental disease upper and lower Depression Diastolic dysfunction Disc disorder of lumbar region GERD (gastroesophageal reflux disease) HL (hearing loss) left HLD (hyperlipidemia) HTN (hypertension) Low back pain Multiple lung nodules Obesity Orthostatic hypotension Peptic ulceration Pneumonia Pulmonary hypertension ([facility]) SOB (shortness of breath) Stroke ([facility]) 2014 Syncope and collapse TIA (transient ischemic [...] 09/20/2019 Performed by Royer Lazar MD at [facility] COLONOSCOPY N/A 11/05/2016 Performed by Cole Ny MD at [facility] Coronary angiogram and right heart and left ventricular gram/pressure N/A 09/20/2019 Performed by Royer Lazar MD at [facility] FORAMINOTOMY C5-6 Left 03/24/2022 Performed by Reid Whatley MD at [facility] PAIN PUMP SURGERY 12/03/2019 POSTERIOR LAMINECTOMY FUSION CERVICAL MULTI LEVEL/C3-C6 N/A 03/24/2022 Performed by Reid Whatley MD at [facility] TIBIA FRACTURE SURGERY Current Outpatient Medications [...] extensors: Weak Left thumb extensors: Strong Right felt machine mechanic strength: Strong Left felt machine mechanic strength: Strong Right upper extremity strength 5/5 [...] Left achilles reflex grade: ankle swelling. Right felt machine mechanic 2+ Left felt machine mechanic 2+ Right plantar reflex: Strong plantar and [...] to occlusion of left middle cerebral artery ([facility]) Problem List Cardiovascular and Mediastinum Cerebrovascular accident (CVA) ([facility]) (Chronic) Nervous and Auditory Hemifacial spasm (Chronic) [...] head, neck, and shoulders. Improved right hand felt machine mechanic compared to my last examination in 2021, [...] procedures Referring and communicating with other health healthcare architect (not separately reported) Documenting clinical information in the electronic or other health record NIURKA WOODRUFF APRN-CRNP 05/13/23 1429 documented [facility] this encounter [facility] [employer] 05-11-2023 Instructions NIURKA Woodruff - 05/11/2023 11:30 AM EDT Continue current treatment regimen. Consider to try botox therapy for headache prevention. documented [facility] this encounter [facility] 05-03-2023 History of Present illness Narrative Reason [...] prostate hyperplasia Cataract CHF (congestive heart failure) ([facility]) Chronic constipation Chronic pain syndrome COPD (chronic obstructive pulmonary disease) ([facility]) Dental disease upper and lower Depression Diastolic dysfunction Disc disorder of lumbar region GERD (gastroesophageal reflux disease) HL (hearing loss) left HLD (hyperlipidemia) HTN (hypertension) Low back pain Multiple lung nodules Obesity Orthostatic hypotension Peptic ulceration Pneumonia Pulmonary hypertension ([facility]) SOB (shortness of breath) Stroke ([facility]) 2014 Syncope and collapse TIA (transient ischemic attack) 02/08/2022 Visual impairment Glasses Past Surgical History: Procedure Laterality Date Cardiac catheterization 09/20/2019 Performed by Royer Lazar MD at [facility] COLONOSCOPY N/A 11/05/2016 Performed by Cole Ny MD at [facility] Coronary angiogram and right heart and left ventricular gram/pressure N/A 09/20/2019 Performed by Royer Lazar MD at [facility] FORAMINOTOMY C5-6 Left 03/24/2022 Performed by Reid Whatley MD at [facility] PAIN PUMP SURGERY 12/03/2019 POSTERIOR LAMINECTOMY FUSION CERVICAL MULTI LEVEL/C3-C6 N/A 03/24/2022 Performed by Reid Whatley MD at [facility] TIBIA FRACTURE SURGERY Current Outpatient Medications: [...] of an adrenal evaluation. 1. Adrenal disorder ([facility]) - given his symptoms will screen for [...] clinic: -3 months Rosa Maria Rome MD [facility] [address] [facility] [address] [facility] [address] Dept: [phone] FAX: [phone] documented in this encounter [facility] 05-03-2023 Instructions Rosa Maria Rome MD [...] specimen is drawn documented in this encounter [facility] 05-02-2023 Miscellaneous Notes This patient has not been seen in a while and recently had a hospitalization; I recommend a follow-up w/ either myself or Nehemias Coburn next available. Kaykay Michel MD documented in this encounter [facility] 05-02-2023 Telephone encounter Note This patient has not been seen in a while and recently had a hospitalization; I recommend a follow-up w/ either myself or Nehemias Coburn next available. Kaykay Michel MD [facility] 04-15-2023 History of Present illness Narrative Kylie Rueda Date of visit: 04/15/2023 Date of : 1950 Age: 72 y.o. Patient Active Problem List Diagnosis History of tobacco use Chronic obstructive pulmonary disease ([facility]) Cerebrovascular accident (CVA) ([facility]) Dysarthria Mixed anxiety depressive disorder HLD (hyperlipidemia) [...] eye Severe obesity (BMI 35.0-39.9) with comorbidity ([facility]) Obesity (BMI 30-39.9) Heart failure with preserved left ventricular function (HFpEF) ([facility]) Decreased pinch strength Shaking Degenerative cervical spinal [...] Kylie is here after being admitted to [facility] with an episode of transient loss of consciousness. Recnetly admitted to [facility] for episode of confusion, decreased level of [...] to be unresponsive, he was taken to [facility] with persistent altered mental status for some time. He underwent a detailed evaluation by Neurology and was evaluated by our assembler golf wood head at [facility]. He had no arrhythmias while there. Did [...] prostate hyperplasia Cataract CHF (congestive heart failure) ([facility]) Chronic constipation Chronic pain syndrome COPD (chronic obstructive pulmonary disease) ([facility]) Dental disease upper and lower Depression Diastolic dysfunction Disc disorder of lumbar region GERD (gastroesophageal reflux disease) HL (hearing loss) left HLD (hyperlipidemia) HTN (hypertension) Low back pain Multiple lung nodules Obesity Orthostatic hypotension Peptic ulceration Pneumonia Pulmonary hypertension ([facility]) SOB (shortness of breath) Stroke ([facility]) 2014 Syncope and collapse TIA (transient ischemic attack) 02/08/2022 Visual impairment Glasses No data recorded No data recorded No data recorded Past Surgical History: Procedure Laterality Date Cardiac catheterization 09/20/2019 Performed by Royer Lazar MD at [facility] COLONOSCOPY N/A 11/05/2016 Performed by Cole Ny MD at [facility] Coronary angiogram and right heart and left ventricular gram/pressure N/A 09/20/2019 Performed by Royer Lazar MD at [facility] FORAMINOTOMY C5-6 Left 03/24/2022 Performed by Reid Whatley MD at [facility] PAIN PUMP SURGERY 12/03/2019 POSTERIOR LAMINECTOMY FUSION CERVICAL MULTI LEVEL/C3-C6 N/A 03/24/2022 Performed by Reid Whatley MD at [facility] TIBIA FRACTURE SURGERY Family History Problem [...] failure with preserved left ventricular function (HFpEF) ([facility]) 3. Hypertension, unspecified type 1. Chronic ALEXANDRA; [...] Cast MD Referring Physician: Cleveland Lindo MD [address] [place] [address] Images from the original note were not included. documented in this encounter [facility] 04-14-2023 Miscellaneous Notes Called patient to remind them to bring their most current copy of their medication list with them to their appt. Patient verbalizes understanding. documented in this encounter [facility] 04-14-2023 Telephone encounter Note Called patient to remind them to bring their most current copy of their medication list with them to their appt. Patient verbalizes understanding. [facility] 03-21-2023 Miscellaneous Notes ----- Message from Maxwell Milligan MD sent at 03/20/2023 5:17 PM EST ----- Follow-up 2-3 weeks. Patient needs 30 days event monitor after seeing him in office. No need to place order now. Telephone call to patient to schedule appt. No answer and no voicemail. documented in this encounter [facility] 03-21-2023 Telephone encounter Note ----- Message from Maxwell Milligan MD sent at 03/20/2023 5:17 PM EST ----- Follow-up 2-3 weeks. Patient needs 30 days event monitor after seeing him in office. No need to place order now. [facility] 03-21-2023 Telephone encounter Note Telephone call to patient to schedule appt. No answer and no voicemail. [facility] 08-18-2021 Hospital Discharge instructions Patient Education 08/18/2021 [...] urethra. Follow these instructions at home: Take uryy-fqs-nzairfn and prescription medicines only as told by [...] 01/31/2006 Document Revised: 12/26/2018 Document Reviewed: 03/07/2017 [employer] Patient Education 2020 [employer]. Follow Up Care 06/09/2021 11:49:23 With:Shawn Allen MD, Cintia Hernandez, URO Address: [facility] [address], [place] [address] [phone] When: Unknown [facility] 06-09-2021 Hospital Discharge instructions Patient Education 06/09/2021 [...] personal one. It is often based on restorationism, social, or cultural beliefs. Circumcision is most [...] 01/28/2001 Document Revised: 07/17/2018 Document Reviewed: 07/17/2018 [employer] Patient Education 2020 [employer]. Follow Up Care 06/03/2021 11:02:25 With:Shawn Allen MD, Cintia Hernandez, URO Address: [facility] [address], [place] [address]- When:08/09/2021 [facility] 05-17-[address] CHEST WO CON [...] authenticated by: JESSA FISHMAN Date: 2021-05-17 09:46 [facility] 05-01-2021 Note [id number]:127 [facility] 04-06-2021 Note [id number]:127 [facility] 04-02-2021 Note Cystoscopy ? Voiding after [...] you have a fever over 100 degrees. [facility] Evaluation + Plan note Future Appointments Appointment Date:05/21/2021 11:00:00 AM Scheduled Provider: Location:[facility] Appointment Type:Surgery FT [facility] Evaluation + Plan note Future Appointments Appointment Date:08/18/2021 10:15:00 AM Scheduled Provider:Shawn Allen MD, Cintia Hernandez Location:[facility] Appointment Type:URO Office Visit [facility] Evaluation + Plan note Future Appointments Appointment Date:08/24/2022 10:45:00 AM Scheduled Provider:Cintia Alves Jr., MD Location:[facility] Appointment Type:URO Office Visit Diagnostic Tests PendingPSA Total 08/18/21 [facility] Evaluation + Plan note Future Appointments Appointment Date:08/24/2022 10:45:00 AM Scheduled Provider:Cintia Alves Jr., MD Location:[facility] Appointment Type:URO Office Visit [facility] Evaluation note Diagnosis Heart failure with preserved left ventricular function (HFpEF) ([facility] Primary Syncope, unspecified syncope type Hypertension, unspecified type [facility] Diagnosis Adrenal disorder ([facility]) Unspecified disorder of adrenal glands [facility] Diagnosis Mixed headache- Primary 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 Cerebrovascular accident (CVA) due to occlusion of left middle cerebral artery ([facility]) [facility] Narrative No data available for this section [facility] No data available for this section [facility]ructionsNot on filedocumented in this encounter [facility] on filedocumented in this encounter [facility] on filedocumented in this encounter [facility] on filedocumented in this encounter [facility] No data available for this section 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 anation DNR Physician Order 04/12/2023 3:13 PM Durable Power of Founder And President 03/24/2022 8:18 AM [email or web address] Documents on File Type Date Recorded 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 Expl anation DNR Physician Order 04/12/2023 3:13 PM Durable Power of Founder And President 03/24/2022 8:18 AM [email or web address] Latest Code Status on File Code Status Date Activated Date Inactivated Comments DNR Comfort Care Arrest (DNR-CCA) [place] 03/15/2023 8:58 PM 03/21/2023 1:26 PM Code Status History Code Status Date Activated Date Inactivated Comments Full Code 03/15/2023 7:55 PM 03/15/2023 8:58 PM Full Code 03/24/2022 3:51 PM 03/27/2022 8:48 PM Hospital Course * Jennifer Nava MD - 12/04/2019 1:44 PM EDT [facility] Office: [phone] Segun Andino DO, Edvin Park DO, Durga White DO, Yoan Kamara DO, Anjelica Cornelius MD, Luda Rm MD, Jennifer Nava MD, Jess Pollard MD, Mikal Stevens MD, Aria [place] MD, Benji Schaefer MD, Valente Dawn MD, Chey Aceves MD, Yobany aZzueta DO, Jac Curiel MD, Ramo Gee MD, Gerardo Gates DO, Smita May MD, Carlos Early DO, Pietro Shanks MD, Jorge Sauceda MD, Gina Gross MAJOR GENERAL, Vale Hazel MAJOR GENERAL, Susy Villalta MAJOR GENERAL, Marily Wade FOREST FIRE FIGHTER, Ayo Mcnair MAJOR GENERAL, Joselito MAJOR GENERAL, Lulú Campa MAJOR GENERAL, Ruthie Lizarraga MAJOR GENERAL, Boy Craven MAJOR GENERAL, Paul Estrada PA-C, Florence Ni MAJOR GENERAL, Lyssa Rich MAJOR GENERAL, Lali Burciaga MAJOR GENERAL, Narcisa Benitez MAJOR GENERAL, Vanessa Isabel MAJOR GENERAL, Reema Quintana MAJOR GENERAL [facility] Discharge Summary Patient ID: Kylie Rueda : 1950 ACCOUNT: [id number] Patient Location : Patient's PCP: Jenny Cast [...] Home Physician Follow Up: Boy Polk MD [address] [facility] [address] [place] [id number] Go on 12/10/2019 Appointment 12-10-19 at 1:45pm Jenny Cast [address] [facility] [address] In 1 week Requiring Further Evaluation/Follow Up [...] Everywhere. * Acute Pain Management: General Info (Bangladeshi) * Surgery Post-op: General Info (Bangladeshi) documented in this encounter History of Present Illness * Sammie Appiah RN - 12/04/2019 2:02 PM EDT Pt discharged to home per wc with dgt. No scripts at this time. Pt to f/u with dr polk if pain continues or worsens on 12/04 * Jennifer Nava MD - 12/04/2019 8:04 AM EDT [facility] Office: [phone] Segun Andino DO, Edvin Park DO, Durga [...] Gross CNP, Vale Hazel CNP, Susy Villalta, MAJOR GENERAL, Marily Wade, FOREST FIRE FIGHTER,Ayo Mcnair, MAJOR GENERAL, Claribel Salmon, MAJOR GENERAL, Lulú Campa, MAJOR GENERAL, Ruthie Lizarraga CNP, Boy Craven CNP, Paul Estrada PA-C, Florence Ni DNP, Lyssa Rich MAJOR GENERAL, Lali Burciaga, MAJOR GENERAL, Narcisa Benitez, MAJOR GENERAL, Vanessa Isabel MAJOR GENERAL, Reema Quintana, COOPER [facility] Daily Progress Note Admit Date: 12/03/2019 [...] discussed with Nursing staff . Background History: Kyile Rueda is 69 y.o. male Who was [...] TIA x 1) CHF (congestive heart failure) ([facility]) Chronic back pain COPD (chronic obstructive pulmonary disease) ([facility]) History of cardiac cath 09/21/2019 normal coronary arteries, normal left ventricular systolic function History of palpitations Hypertension Mild pulmonary hypertension ([facility]) per cardiac catheterization from 09/2019. Shortness of [...] No results for input(s): PROT, LABALBU, LABA1C, Z3EJNDW, E2GDUFQ, FT4, TSH, AST, ALT, LDH, GGT, ALKPHOS, BILITOT, BILIDIR, AMMONIA, AMYLASE, LIPASE, LACTATE, CHOL, HDL, LDLCHOLESTEROL, CHOLHDLRATIO, TRIG, VLDL, BNP, TROPONINI, CKTOTAL, CKMB, CKMBINDEX, RF, WICHO in the last 72 hours. Specific [place], UA Date Value Ref Range Status 11/19/2019 [...] Soumya Marie MD [address] [place] [address] Referral ID Status Reason Start Date Expiration Date V isits Requested Visits Authorized [id number] Pending Review 04/15/2023 04/14/2024 1 1 Additional Source Comments (unrecognized sect ion and content) No Status Records FoundNo Status Records FoundNo Status Records FoundNo Status Records FoundNo Status Records FoundNo Status Records FoundNo Status Records FoundNo Status Records Found INFORMATION SOURCE (unrecogn ized section and content) DATE CREATED AUTHOR 03/28/2018 [facility] DATE CREATED AUTHOR AUTHOR'S ORGANIZ ATION 04/12/2021 [facility] DATE CREATED AUTHOR AUTHOR'S ORGANIZ ATION 12/10/2021 [facility] DATE CREATED AUTHOR AUTHOR'S ORGANIZ ATION 05/05/2022 [facility] DATE CREATED AUTHOR AUTHOR'S ORGANIZ ATION 09/30/2022 [facility] DATE CREATED AUTHOR AUTHOR'S ORGANIZ ATION 05/12/2023 [facility] DATE CREATED AUTHOR AUTHOR'S ORGANIZ ATION 06/13/2023 [facility] DATE CREATED AUTHOR AUTHOR'S ORGANIZ ATION 06/17/2023 [facility] Reason for Visit (unrecogniz ed section and content) Status Reason Specialty Diagnoses / Procedures Referre d By Contact Referred To Contact Diagnoses Lumbar radiculopathy DX LUMBAR RADICULOPATHY Procedures VT NJX DX/THER SBST INTRLMNR CRV/THRC W/IMG GDN INSERT/ REPLACE INFUSN PUMP,PROGRAMMABLE INTRATHECAL PUMP REPLACEMENT AND CATHETER REVISION Boy Polk MD [address] [place] [address] [facility] Reason Onset Date Comments Hospital Follow-up 03/21/2023 Reason Comments Follow-up EST PT F/U SYNCOPE S CHED W/ PT Specialty Diagnoses / Procedures Referred By Contac t Referred To Contact Cardiology Diagnoses Syncope, unspecified syncope type Cleveland Lindo MD [address] [place] [address] Mike Amato MD [address] [place] [address] Referral ID Status Reason Start Date Expiration Date Visits Requested Visits Authorized [id number] Pending Review Specialty Services Required 03/21/2023 03/20/2024 1 1 Reason Comments Med Refill Reason Comments New Patient Specialty Diagnoses / Procedures Referred By Frederick baker Referred To Contact Endocrinology Diagnoses Syncope, unspecified syncope type Cleveland Lindo MD [address] [place] [address] [facility] [address] [address] Referral ID Status Reason Start Date Expiration Date Visits Requested Visits Authorized [id number] Pending Review Specialty Services Required 03/21/2023 03/20/2024 1 1 Reason Comments Follow-up Chief complaint head ache. 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 Relationship Specialty Start Date End Date Jenny Cast MD [address] [place] [address] PCP - General Family Medicine 03/15/16 Crane Assembler Relationship Specialty Start Date End Date Jenny Cast MD [address] [place] [address] PCP - General Family Medicine 03/15/16 Crane Assembler Relationship Specialty Start Date End Date Jenny Cast MD [address] [place] [address] PCP - General Family Medicine 03/15/16 Crane Assembler Relationship Specialty Start Date End Date Jenny Cast MD [address] [place] [address] PCP - General Family Medicine 03/15/16 Crane Assembler Relationship Specialty Start Date End Date Jenny Cast MD [address] [place] [address] PCP - General Family Medicine 03/15/16 Crane Assembler Relationship Specialty Start Date End Date Jenny Cast MD [address] [place] [phone] PCP - General Family Medicine 03/15/16 [...] BE BASED ON THE PRIMARY CLINICAL RECORDS. [employer] [facility]. provides no warranty or guarantee of the accuracy or completeness of information in this document.
[2023-06-18] MEDS: OXYCODONE HCL 5 MG TABLET PO ×2 (03:13→16:36)
[2023-06-18] MEDS: DIAZEPAM 5 MG TABLET PO ×2 (03:14→20:01)
[2023-06-18] MEDS: ONDANSETRON PF 4 MG/2 ML VIAL IV (03:14)
[2023-06-18] MEDS: BACLOFEN 10 MG TABLET PO ×3 (05:35→21:54)
[2023-06-18 05:39] LABS: Hemoglobin 7.2 g/dL (14.0-18.0); Mean Corpuscular Hemoglobin 29.4 pg (25.9-34.0); Mean Corpuscular Volume 91.8 fL (80.0-94.0); Mean Platelet Volume 9.4 fL (9.5-13.5); Platelet Count 349 10^3/uL (150-450); Red Blood Count 2.45 10^6/uL (4.70-6.10); Red Cell Distribution Width 12.8 % (11.0-15.0); White Blood Count 8.4 10^3/uL (4.0-11.0)
[2023-06-18 05:42] LABS: Bilirubin Urine NEGATIVE (NEGATIVE); Blood Urine NEGATIVE (NEGATIVE); Clarity Urine CLEAR (CLEAR); Color Urine YELLOW (YELLOW); Glucose Urine UA NEGATIVE (NEGATIVE); Ketones Urine NEGATIVE (NEGATIVE); Leukocyte Esterase Urine NEGATIVE (NEGATIVE); Nitrite Urine NEGATIVE (NEGATIVE); Protein Urine NEGATIVE (NEG/TRACE); Urobilinogen Urine 0.2 EU/dL (0.2-1.0); pH Urine 6.5 (5.0-9.0)
[2023-06-18 05:46] LABS: Anion Gap 9.9; BUN Creatinine Ratio 21.2; Carbon Dioxide 29.3 mmol/L (21.0-32.0); Chloride 100 mmol/L (98-107); Estimated GFR (African America >60 (>=60); Estimated GFR (Non-African Ame >60 (>=60); Glucose 118 mg/dL (74-106); Potassium 4.2 mmol/L (3.5-5.1); Sodium 135 mmol/L (136-145)
[2023-06-18 05:48] LABS: WBC Urine 0-2 #/HPF (NONE SEEN)
[2023-06-18] MEDS: IPRATROPIUM/ALBUTEROL SULFATE 3 ML AMPUL.NEB IH ×4 (05:48→21:04)
[2023-06-18 05:49] LABS: Bacteria Urine NONE SEEN #/HPF (NONE SEEN); Cast Seen? NONE SEEN #/LPF (NONE SEEN); Crystals Seen? None Seen #/HPF (None Seen); Mucus Urine NONE SEEN (NONE SEEN); RBC Urine NONE SEEN #/HPF (0-2); Squamous Epithelial Cell Urine NONE SEEN #/LPF (NONE/RARE); Urine Culture Indicated NO
[2023-06-18 05:59] LABS: Hematocrit 22.5 % (42.0-54.0)
[2023-06-18 06:30] LABS: Hemoglobin 7.5 g/dL (14.0-18.0)
[2023-06-18 06:33] LABS: Hematocrit 23.1 % (42.0-54.0)
[2023-06-18] MEDS: ENOXAPARIN SODIUM 40 MG/0.4 ML SYRINGE SUBQ (08:25)
[2023-06-18] MEDS: CLOPIDOGREL BISULFATE 75 MG TABLET PO (08:25)
[2023-06-18] MEDS: LISINOPRIL 5 MG TABLET PO (08:25)
[2023-06-18] MEDS: OMEPRAZOLE 40 MG CAPSULE.DR PO (08:25)
[2023-06-18] MEDS: ASPIRIN 81 MG TABLET.DR PO (08:25)
[2023-06-18] MEDS: DULOXETINE HCL 60 MG CAPSULE.DR PO (08:25)
[2023-06-18] MEDS: VERAPAMIL HCL ER 240 MG TABLET PO (08:25)
[2023-06-18] MEDS: CETIRIZINE HCL 10 MG TABLET PO (08:25)
[2023-06-18] MEDS: PREGABALIN 100 MG CAPSULE PO ×2 (08:25→20:01)
[2023-06-18] MEDS: FLUTICASONE PROPIONATE 50 MCG NASAL SPRAY 1 SPRAY NS (08:26)
[2023-06-18] MEDS: ACETAMINOPHEN 325 MG TABLET 650 MG PO ×2 (08:30→20:00)
[2023-06-18 09:57] LABS: Hemoglobin 7.3 g/dL (14.0-18.0); Mean Corpuscular HGB Conc 32.4 g/dL (29.9-35.2); Mean Corpuscular Hemoglobin 30.2 pg (25.9-34.0); Mean Platelet Volume 9.2 fL (9.5-13.5); Platelet Count 315 10^3/uL (150-450); Red Blood Count 2.42 10^6/uL (4.70-6.10); Red Cell Distribution Width 12.8 % (11.0-15.0); White Blood Count 7.8 10^3/uL (4.0-11.0)
[2023-06-18 10:06] LABS: Hematocrit 22.5 % (42.0-54.0)
[2023-06-18] MEDS: FUROSEMIDE 40 MG TABLET PO (11:30)
[2023-06-18] MEDS: CARBAMAZEPINE 200 MG TABLET 400 MG PO ×2 (11:30→20:01)
--- NOTE | 2023-06-18 12:52 | P.HP_ITS ---
HPI H&P: HPI History of Present Illness Chief complaint: LACK OF CARE, RECENT SURGERY Narrative: 72 y o male had left hip arthroplasty at [facility] about 5-6 days ago. He was discharged to a local rehab facility and was brought in last night for poorly controlled pain, concerns related to the care provided to him at local rehab. He reports that his pain was not appropriately treated and that he felt he was not receiving post operative care that he needed. I spoke to his daughter who jackie mcleand that he was not even receiving his usual medications and had missed his regular medications while at local rehab. Patient was seen earlier today. He reports his left leg is hurting. He has limit ed mobility at hip joint. There is bruising noted over left hip joint/post operative site. Surgical scar does not appear infected. Patient was noted to have anemia upon admission with progressive decline in his Hb. No overt bleeding noted other than possibility of post op bleeding in joint space/subcutaneous tissue at surgical site because of bruising noted on exam. Patient was originally admitted for observation. He has already spent on midnight in the hospital and given his progressive decline in Hb post operatively, he is expected to stay for a minimum of another midnight for monitoring his hemoglobin after transfusion to ensure that his Hb remains stable. He will also need adequate pain control, PT/OT evaluation. I ordered one unit PRBC for the patient. Will check H&H after transfusion Opioid HPI Opioid Management Most Recent Opioid Data: Last Pain Scale 0 06/18/23 11:31 Last Pain Assessment 06/18/23 13:00 Last MAR Pain Assessment 06/18/23 11:31 Last ORT Total Score 0 06/18/23 04:46 Last ORT Risk Category Low Risk 06/18/23 04:46 Ur Phencyclidine Scrn Negative (NEGATIVE) 03/14/23 09:08 Review of Systems ROS Status of ROS 10 or more systems reviewed and unremark able except as noted in history and below [facility] Medical History (Updated 06/18/23 @ 13:10 by Shaikh Michael MD) Hypertension ?I10 - Essential (primary) hypertension (ICD-10) Paroxysmal atrial fibrillation ?I48.0 - Paroxysmal atrial fibrillation (ICD-10) Generalized weakness ?R53.1 - Weakness (ICD-10) Generalized weakness ?R53.1 - Weakness (ICD-10) Near syncope ?R55 - Syncope and collapse (ICD-10) Altered mental status ?R41.82 - Altered mental status, unspecified (ICD-10) COPD (chronic obstructive pulmonary disease) ?J44.9 - Chronic obstructive pulmonary disease, unspecified (ICD-10) Dehydration ?E86.0 - Dehydration (ICD-10) Acute renal failure ?N17.9 - Acute kidney failure, unspecified (ICD-10) BPH (benign prostatic hyperplasia) ?N40.0 - Benign prostatic hyperplasia without lower urinary tract symptoms (ICD-10) Lumbar degenerative disc disease ?M51.36 - Other intervertebral disc degeneration, lumbar region (ICD-10) Hyperlipidemia ?E78.5 - Hyperlipidemia, unspecified (ICD-10) Congestive heart failure ?I50.9 - Heart failure, unspecified (ICD-10) Neuropathy ?G62.9 - Polyneuropathy, unspecified (ICD-10) Acute kidney injury ?N17.9 - Acute kidney failure, unspecified (ICD-10) Surgical History (Updated 06/18/23 @ 13:04 by Shaikh Michael MD) H/O lumbosacral spine surgery ?Z98.890 - Other specified postprocedural states (ICD-10) H/O cervical spine surgery ?Z98.890 - Other specified postprocedural states (ICD-10) Family History Sister Family history of cancer Social History Within the past year, how often did you have a drink containing alcohol: never Within the past year, how often did you have six or more drinks on one occasion: never Score interpretation: A score less than 4 is consistent with normal alcohol consumption. Smoking status: Former smoker Second hand tobacco smoke exposure: No Non-prescribed substance use: denies use Previous occupational history: retired Known occupational exposures/hazards: No Highest level of school completed/degree received: high school graduate In a typical week, how many times do you talk on the telephone with family, friends, or neighbors: twice per week How often do you get together with friends or relatives: 3 or more times per week How often do you attend anglican or rastafari services: never Do you belong to any clubs or organizations such as anglican groups unions, [employer] or athletic groups, or school groups: no Little interest or pleasure in doing things: several days Feeling down, depressed, or hopeless: several days Feel stressed/tense/nervous/anxious/difficulty sleeping: to some extent Due to disability, difficulty making decisions: No Do you think of yourself as: straight/heterosexual Gender Identity: male Meds Home Medications and Allergies Home Medications ?Medication ?Instructions ?Recorded ?Confirmed ?Type atorvastatin 40 mg tablet 40 mg PO BEDTIME 08/19/22 06/18/23 History baclofen 10 mg tablet 10 mg PO TID 08/19/22 06/18/23 History carbamazepine 400 mg 400 mg PO Q12H 08/19/22 06/18/23 History tablet,extended release,12 hr clopidogrel 75 mg tablet 75 mg PO DAILY 08/19/22 06/18/23 History diazepam 5 mg tablet 5 mg PO Q6H PRN anxiety 08/19/22 06/18/23 History duloxetine 60 mg capsule,delayed 60 mg PO DAILY 08/19/22 06/18/23 History release fluticasone propionate 50 1 spray intranasal DAILY 08/19/22 06/18/23 History mcg/actuation nasal spray,suspension levalbuterol tartrate 45 2 puff inhalation Q6H PRN 08/19/22 06/18/23 History mcg/actuation aerosol inhaler shortness of breath magnesium hydroxide 400 mg/5 mL 30 ml PO DAILY PRN constipation 08/19/22 06/18/23 History oral suspension montelukast 10 mg tablet 10 mg PO BEDTIME 08/19/22 06/18/23 History omeprazole 40 mg capsule,delayed 40 mg PO DAILY 08/19/22 06/18/23 History release oxycodone 5 mg capsule 5 mg PO Q8H PRN pain 08/19/22 06/18/23 History pregabalin 100 mg capsule 100 mg PO Q12H 08/19/22 06/18/23 History terazosin 2 mg capsule 2 mg PO BEDTIME 08/19/22 06/18/23 History verapamil 240 mg tablet,extended 240 mg PO DAILY 08/19/22 06/18/23 History release aspirin 81 mg tablet,delayed 81 mg PO DAILY 03/14/23 06/18/23 History release tiotropium 2.5 mcg-olodaterol 2.5 2 inh inhalation Q24H 03/15/23 06/18/23 History mcg/actuation mist for inhalation (Stiolto Respimat) furosemide 40 mg tablet 40 mg PO DAILY 06/18/23 06/18/23 History lisinopril 5 mg tablet 5 mg PO DAILY 06/18/23 06/18/23 History Allergies Allergy/AdvReac Type Severity Reaction Status Date / Time Iodinated Contrast Media AdvReac Intermediate Verified 06/17/23 20:08 Exam Constitutional Vital Signs, click to edit/add: Last Vital Signs Temp 98.2 F 06/18/23 11:39 Pulse 61 06/18/23 11:39 Resp 16 06/18/23 11:39 BP 115/74 06/18/23 11:39 Pulse Ox 98 06/18/23 11:39 O2 Del Method Room Air 06/18/23 11:39 O2 Flow Rate 2 06/18/23 05:48 Common normals: no apparent distress and oriented x3 General appearance: cooperative and comfortable Nutritional appearance: obese Respiratory Common normals: normal respiratory effort, no use of accessory muscles and clear to auscultation bilaterally Effort & inspection: able to speak in complete sentences Cardio Common normals: no JVD, regular rate, regular rhythm, S1 normal heart sound and S2 normal heart sound GI Common normals: Normal to inspection, nondistended, normoactive bowel sounds present, soft to palpation, non-tender and no hepatosplenomegaly Extremity Other: Left Leg - surgical site does not appear to be infected but has superficial bruising. No fluctuance noted. Neuro Common normals: oriented x3, moves all extremities and no focal motor deficits Psych Common normals: mental status grossly normal, thought process normal, denies homicidal ideation and denies suicidal ideation Results Labs Labs: Short CBC 06/17/23 06/18/23 06/18/23 Range/Units 20:50 04:34 06:24 WBC 10.0 8.4 (4.0-11.0) 10^3/uL Hgb 8.9 L 7.2 L 7.5 L (14.0-18.0) g/dL Hct 27.0 L 22.5 L* 23.1 L* (42.0-54.0) % Plt Count 387 349 (150-450) 10^3/uL 05/04/24 Range/Units 09:36 WBC 7.8 (4.0-11.0) 10^3/uL Hgb 7.3 L (14.0-18.0) g/dL Hct 22.5 L* (42.0-54.0) % Plt Count 315 (150-450) 10^3/uL BMP 06/17/23 06/18/23 20:40 04:34 Sodium 135 L 135 L Potassium 4.4 4.2 Chloride 98 100 Carbon Dioxide 29.3 29.3 BUN 18.0 17.0 Creatinine 0.93 0.80 Glucose 136 H 118 H Calcium 9.5 9.0 Urine 06/18/23 Range/Units 05:00 Urine Color Yellow (YELLOW) Urine Clarity Clear (CLEAR) Urine pH 6.5 (5.0-9.0) Ur Specific [place] 1.020 (1.005-1.025) Urine Protein Negative (NEG/TRACE) mg/dL Urine Glucose (UA) Negative (NEGATIVE) mg/dL Assessment and Plan Assessment and Plan (1) Postoperative anemia due to acute blood loss: Assessment and Plan: Baseline Hb of 10, presented with Hb of 8.9 --> now down to 7.3 No overt bleeding but has bruising and swelling over left hip at surgical site. Order Hip XR. Transfuse one unit PRBC. Monitor H&H closely. If persistent/progressive decline, will need orthopedic surgery input/recs. (2) S/P total left hip arthroplasty: Assessment and Plan: Recent surgery about 5 days ago. XR ordered PT/OT eval. . (3) Generalized weakness: Assessment and Plan: PT/OT eval ordered. Likely multifactorial and mainly because of poor mobility from recent hip surgery resulting in overall decline in functional status (4) Paroxysmal atrial fibrillation: Assessment and Plan: C/w verapamil (5) Hypertension: Assessment and Plan: Well controlled/ C/w home meds Qualifiers: Hypertension type: primary hypertension Qualified Code(s): I10 - Essential (primary) hypertension (6) COPD (chronic obstructive pulmonary disease): Assessment and Plan: Stable. No bronchospasm or wheezing noted C/w home meds Qualifiers: COPD type: unspecified COPD Qualified Code(s): J44.9 - Chronic obstructive pulmonary disease, unspecified (7) Congestive heart failure: Assessment and Plan: C/w home meds. Euvolemic. Qualifiers: Heart failure chronicity: chronic Heart failure type: diastolic Qualified Code(s): I50.32 - Chronic diastolic (congestive) heart failure (8) Hyperlipidemia: Assessment and Plan: c/w lipitor. Qualifiers: Hyperlipidemia type: unspecified Qualified Code(s): E78.5 - Hyperlipidemia, unspecified
[2023-06-18 13:00] LABS: Percent Iron Saturation 12.2 %
--- NOTE | 2023-06-18 13:04 | XR_ITS ---
The [address] [address] Patient Name: KYLIE RUEDA MRN: [id number] date: 1950 Sex: M Assigned Patient Location: [place] Current Patient Location: [place] Accession/Order Number: [id number] Exam Date: 06/18/2023 13:45 Report Date: 06/18/2023 15:50 At the request of: SHAIKH JESSICA Procedure: XR hip LT 2V w/ pelvis EXAM: XR hip LT 2V w/ pelvis 06/18/2023. HISTORY: Left hip pain after having left hip replacement surgery 3 days ago. COMPARISON: None. TECHNIQUE: A frontal view of the pelvis and 2 views of the left hip were obtained. FINDINGS: There is a radiopaque pain pump device projecting over the left iliac bone which degrades evaluation of this region. There are degenerative changes of the visualized lower lumbar spine. There is a femoral hemiarthroplasty prosthesis in the proximal left femoral metadiaphysis. This is cemented in place. No hardware complication, fracture or dislocation is seen. There is a skin staple row along the lateral aspect of the left hip. XR/XR hip LT 2V w/ pelvis IMPRESSION: Status post recent left hip hemiarthroplasty without evidence of hardware complication, fracture or dislocation. Electronically authenticated by: ELMIRA HARRIS Date: 06/18/2023 15:50
[2023-06-18] MEDS: IRON SUCROSE COMPLEX 200 MG in 0.9 % SODIUM CHLORIDE 100 ML 220 MG IV (15:03)
[2023-06-18 15:56] LABS: Hemoglobin 8.6 g/dL (14.0-18.0)
[2023-06-18 21:10] LABS: Hemoglobin 8.6 g/dL (14.0-18.0)
[2023-06-18] MEDS: ATORVASTATIN CALCIUM 40 MG TABLET PO (21:54)
[2023-06-18] MEDS: MONTELUKAST SODIUM 10 MG TABLET PO (21:54)
[2023-06-18] MEDS: TERAZOSIN HCL 1 MG CAPSULE 2 MG PO (21:54)
[2023-06-19] VITALS (16 sets, daily range): BP systolic 90–117; BP diastolic 52–71; PULSE 66–88; TEMP 36.4–36.8; O2SAT 88–97
[2023-06-19] MEDS: OXYCODONE HCL 5 MG TABLET PO ×4 (01:37→23:15)
[2023-06-19] MEDS: DIAZEPAM 5 MG TABLET PO ×3 (01:37→23:00)
[2023-06-19] MEDS: ONDANSETRON PF 4 MG/2 ML VIAL IV ×2 (01:37→20:32)
[2023-06-19] MEDS: IPRATROPIUM/ALBUTEROL SULFATE 3 ML AMPUL.NEB IH ×4 (04:02→20:30)
[2023-06-19] MEDS: BACLOFEN 10 MG TABLET PO ×3 (05:58→21:32)
[2023-06-19 09:09] LABS: Hematocrit 25.9 % (42.0-54.0); Hemoglobin 8.3 g/dL (14.0-18.0)
[2023-06-19] MEDS: CARBAMAZEPINE 200 MG TABLET 400 MG PO ×2 (09:12→20:32)
[2023-06-19] MEDS: OMEPRAZOLE 40 MG CAPSULE.DR PO (09:15)
[2023-06-19] MEDS: FLUTICASONE PROPIONATE 50 MCG NASAL SPRAY 1 SPRAY NS (09:15)
[2023-06-19] MEDS: CETIRIZINE HCL 10 MG TABLET PO (09:15)
[2023-06-19] MEDS: PREGABALIN 100 MG CAPSULE PO ×2 (09:16→20:32)
[2023-06-19] MEDS: FERROUS SULFATE 325 MG TABLET PO (09:16)
[2023-06-19] MEDS: DULOXETINE HCL 60 MG CAPSULE.DR PO (09:17)
[2023-06-19] MEDS: ASPIRIN 81 MG TABLET.DR PO (09:28)
[2023-06-19] MEDS: ENOXAPARIN SODIUM 40 MG/0.4 ML SYRINGE SUBQ (09:29)
[2023-06-19] MEDS: CLOPIDOGREL BISULFATE 75 MG TABLET PO (09:29)
--- NOTE | 2023-06-19 11:28 | P.IMPN_ITS ---
Progress Note: A&P Assessment and Plan (1) Postoperative anemia due to acute blood loss: Assessment and Plan: Baseline Hb of 10, presented with Hb of 8.9 --> 7.3 No overt bleeding. Received one unit PRBC 06/18/23 Hb stable 8.6 --> 8.6 --> 8.3 Monitor. (2) S/P total left hip arthroplasty: Assessment and Plan: No acute abnormality on XR Poorly controlled pain. Patient encouraged to participate in physical therapy. Continue physical therapy and occupational therapy. (3) Generalized weakness: Assessment and Plan: Due to recent surgery and poorly controlled pain. PT and OT treatment (4) Paroxysmal atrial fibrillation: Assessment and Plan: Continue verapamil. In normal sinus rhythm. (5) Hypertension: Assessment and Plan: Continue with Home medications.Blood pressure at goal Qualifiers: Hypertension type: primary hypertension Qualified Code(s): I10 - Essential (primary) hypertension (6) COPD (chronic obstructive pulmonary disease): Assessment and Plan: no Active bronchospasm or wheezing. Continue with home medications Qualifiers: COPD type: unspecified COPD Qualified Code(s): J44.9 - Chronic obstructive pulmonary disease, unspecified (7) Congestive heart failure: Assessment and Plan: Euvolemic. Continue with Lasix, lisinopril. Qualifiers: Heart failure type: diastolic Heart failure chronicity: chronic Quali fied Code(s): I50.32 - Chronic diastolic (congestive) heart failure (8) Hyperlipidemia: Assessment and Plan: Continue with Lipitor Qualifiers: Hyperlipidemia type: unspecified Qualified Code(s): E78.5 - Hype rlipidemia, unspecified Plan Patient continues to have poorly controlled pain, poor mobility. Continue with physical therapy and occupational therapy. Adjusted patient's pain medication. Monitor hemoglobin. Internal Medicine - PN: Subj Subjective Interval history: Patient seen and examined. No overnight events. Hemoglobin is stable. Denies any transfusion reaction. He reports poorly controlled left hip pain Otherwise he has no active complaints to offer Exam Constitutional Vital Signs, click to edit/add: Last Vital Signs Temp 98.2 F 06/19/23 04:45 Pulse 80 06/19/23 10:44 Resp 20 06/19/23 10:44 BP 95/54 06/19/23 09:15 Pulse Ox 92 L 06/19/23 10:44 O2 Del Method Room Air 06/19/23 10:44 O2 Flow Rate 2 06/19/23 04:45 Common normals: no apparent distress and oriented x3 General appearance: cooperative and comfortable Nutritional appearance: obese Respiratory Common normals: normal respiratory effort, no use of accessory muscles and clear to auscultation bilaterally Effort & inspection: able to speak in complete sentences Cardio Common normals: no JVD, regular rate, regular rhythm, S1 normal heart sound and S2 normal heart sound Extremity Other: Left Leg - surgical site does not appear to be infected but has superficial bruising. No fluctuance noted. Neuro Common normals: oriented x3, moves all extremities and no focal motor deficits Psych Common normals: mental status grossly normal, thought process normal, denies homicidal ideation and denies suicidal ideation Internal Medicine - PN: Obj Da Labs Labs: Laboratory Results - last 24 hr 06/17/23 06/18/23 06/18/23 20:50 06:24 15:50 Hgb 8.6 L Hct 26.0 L Iron 28.0 L TIBC 229.0 L % Saturation 12.2 Ferritin 479.0 H Vitamin B12 204.0 Folate 9.20 Crossmatch See Detail 06/18/23 06/19/23 21:04 09:02 Hgb 8.6 L 8.3 L Hct 26.0 L 25.9 L Iron TIBC % Saturation Ferritin Vitamin B12 Folate Crossmatch
[2023-06-19 20:35] LABS: Hematocrit 27.5 % (42.0-54.0); Hemoglobin 8.8 g/dL (14.0-18.0)
[2023-06-19] MEDS: TERAZOSIN HCL 1 MG CAPSULE 2 MG PO (21:30)
[2023-06-19] MEDS: MONTELUKAST SODIUM 10 MG TABLET PO (21:31)
[2023-06-19] MEDS: ATORVASTATIN CALCIUM 40 MG TABLET PO (21:32)
[2023-06-19] MEDS: ACETAMINOPHEN 325 MG TABLET 650 MG PO (23:15)
[2023-06-20 04:00] VITALS: BP 104/62; PULSE 69; TEMP 36.8; O2SAT 95
[2023-06-20] MEDS: ACETAMINOPHEN 325 MG TABLET 650 MG PO (04:12)
[2023-06-20 04:33] VITALS: PULSE 68; O2SAT 93
[2023-06-20] MEDS: IPRATROPIUM/ALBUTEROL SULFATE 3 ML AMPUL.NEB IH ×2 (04:33→10:45)
[2023-06-20 05:15] LABS: Hematocrit 25.7 % (42.0-54.0); Hemoglobin 8.3 g/dL (14.0-18.0)
[2023-06-20] MEDS: BACLOFEN 10 MG TABLET PO ×2 (05:32→13:29)
[2023-06-20 07:14] VITALS: BP 122/57; PULSE 66; TEMP 36.9; O2SAT 94
[2023-06-20] MEDS: LISINOPRIL 5 MG TABLET PO (08:30)
[2023-06-20] MEDS: FERROUS SULFATE 325 MG TABLET PO (08:30)
[2023-06-20] MEDS: ASPIRIN 81 MG TABLET.DR PO (08:31)
[2023-06-20] MEDS: CETIRIZINE HCL 10 MG TABLET PO (08:31)
[2023-06-20] MEDS: DULOXETINE HCL 60 MG CAPSULE.DR PO (08:31)
[2023-06-20] MEDS: CARBAMAZEPINE 200 MG TABLET 400 MG PO (08:31)
[2023-06-20] MEDS: CLOPIDOGREL BISULFATE 75 MG TABLET PO (08:31)
[2023-06-20] MEDS: OMEPRAZOLE 40 MG CAPSULE.DR PO (08:31)
[2023-06-20] MEDS: PREGABALIN 100 MG CAPSULE PO (08:31)
[2023-06-20] MEDS: FUROSEMIDE 40 MG TABLET PO (08:31)
[2023-06-20] MEDS: VERAPAMIL HCL ER 240 MG TABLET PO (08:31)
[2023-06-20] MEDS: FLUTICASONE PROPIONATE 50 MCG NASAL SPRAY 1 SPRAY NS (08:32)
[2023-06-20] MEDS: ENOXAPARIN SODIUM 40 MG/0.4 ML SYRINGE SUBQ (08:32)
[2023-06-20] MEDS: OXYCODONE HCL 5 MG TABLET PO (09:19)
--- NOTE | 2023-06-20 09:32 | SWNOTE1 ---
SW received phone call from doctor on Tuesday in regards to patient. Pt was at [facility], but needs new facility. SW also received an email in regards to pt and concerns about [facility]. SW to reach out to [facility] in regards to pt.
--- NOTE | 2023-06-20 10:03 | CM.NOTE ---
Rounds made with Dr. Rodriguez, discussed with pt discharge today and need to decided on skilled facility. Pt verbalizes he would like to go to [facility]. Message SW about pt requesting [facility] and wishes are not to go back to [place].
--- NOTE | 2023-06-20 10:09 | SWNOTE1 ---
SW spoke to case management and pt would SW to check in to [facility]. [facility] does not have a bed open for pt. SW went in to speak with pt and let him know [facility] does not have openings. Pt would like SW to call his daughter. HEBERT called and spoke with Kathy, pt's daughter, in regards to discharge planning and issues at [facility]. Pt's daughter voiced she is aware of the issues at [facility] and her concern is that [facility] has not reported anything. SW did suggest that daughter calls [facility]. She voiced her friend just told her about doing that this morning, she has the number. At this point SW is not going to do anything else in regards to concerns with [facility], as family is addressing this. HEBERT spoke with Kathy about discharge plans. Kathy would like HEBERT to try [facility] in [place]. HEBERT reached out and left voicemail for admissions at [facility].
[2023-06-20 10:46] VITALS: PULSE 78; O2SAT 78
[2023-06-20 10:48] VITALS: O2SAT 94
[2023-06-20] MEDS: MAGNESIUM HYDROXIDE 2,400 MG/10 ML ORAL.SUSP 2400 MG PO (10:51)
--- NOTE | 2023-06-20 10:52 | CM.NOTE ---
Important Message From Medicare discussed with pt, pt verbalizes understanding and signs paper. Original given to pt and copy placed on pt's chart.
--- NOTE | 2023-06-20 11:11 | SWNOTE1 ---
HEBERT spoke to admissions at [facility] and she will review and let me know about beds. HEBERT did inform her that pt was at [facility] but was not happy with his care. SW attempting to get information about previous hospital stay from [facility]. SW received email from Alyssa at [facility] with his 3 day stay information and that pt was at [facility] prior to skilled and she wondereed if he was returning to [place] after skilled. SW to find out. Referral sent to [facility]. Referral included face sheet, ED note, H&P, provider notes, case management report, wound consult, nursing notes, diagnostic imaging, med list, and PT/OT notes.
[2023-06-20 11:12] VITALS: BP 124/70; PULSE 83; TEMP 36.9; O2SAT 94
--- NOTE | 2023-06-20 13:52 | P.DS_ITS ---
DS: Providers Provider Date of admission: 06/18/23 12:52 Primary care physician: NU HERNANDEZ Admitting clinician: Shaikh Michael Attending physician on admission: Shaikh Michael Consults: 06/17/23 22:06 Consult to Requirements Manager Routine Has provider been notified: No Reason for consult:: Other Other reason:: New SNF placement 06/18/23 09:00 Occupational Therapy Eval and Treat Routine Reason for consultation: s/p lf hip replacement Has provider been notified: No Physical Therapy Eval and Treat Routine Reason for consultation: s/p lf hip replacement Has provider been notified: No Attending physician on discharge: Shaikh Michael Discharging clinician: Shaikh Michael Anticipated date of discharge: 06/20/23 DS: Diagnosis Discharge Diagnosis (1) Postoperative anemia due to acute blood loss: Assessment and plan: Required blood transfusion. Hb remained stable. (2) S/P total left hip arthroplasty: Assessment and plan: PT/OT eval. No acute finding on XR. Stable for d/c (3) Generalized weakness: Assessment and plan: Improved during course of admission. PT/OT eval. Dce'ed to rehab (4) Paroxysmal atrial fibrillation: Assessment and plan: In NSR. Not on AC. (5) Hypertension: Assessment and plan: At goal. C/w home meds Qualifiers: Hypertension type: primary hypertension Qualified Code(s): I10 - Essential (primary) hypertension (6) COPD (chronic obstructive pulmonary disease): Assessment and plan: Stable. No brochospasm. Cw same Qualifiers: COPD type: unspecified COPD Qualified Code(s): J44.9 - Chronic obstructive pulmonary disease, unspecified (7) Congestive heart failure: Assessment and plan: Euvolemic. Continued on home medications Qualifiers: Heart failure type: diastolic Heart failure chronicity: chronic Qualified Code(s): I50.32 - Chronic diastolic (congestive) heart failure (8) Hyperlipidemia: Assessment and plan: C/w Lipitor Qualifiers: Hyperlipidemia type: unspecified Qualified Code(s): E78.5 - Hyperlipidemia, unspecified DS: Summary Hospital Course Hospital Course: 72 y o male with recent left hip arthroplasty at [facility] came in for poorly controlled pain, concerns related to the care provided to him at local rehab. He reported that his pain was not appropriately treated and that he felt he was not receiving post operative care that he needed. He was noted to have anemia and required transfusion. There was no evidence of active bleeding. Patient was monitored for anemia, and his post op pain managed while inpatient. He also worked with PT/OT and is stable for discharge to local rehab to continue his rehab Status at Discharge Functional status at discharge: uses cane/walker Overall status at discharge: patient is progressing back to baseline Time Spent with Patient Time attestation: Total time spent providing and/or coordinating discharge services: Exam Constitutional Vital Signs, click to edit/add: Last Vital Signs Temp 98.4 F 06/20/23 11:12 Pulse 83 06/20/23 11:12 Resp 18 06/20/23 11:12 BP 124/70 06/20/23 11:12 Pulse Ox 94 L 06/20/23 11:12 O2 Del Method Room Air 06/20/23 11:12 O2 Flow Rate 1 06/19/23 20:33 Common normals: no apparent distress and oriented x3 General appearance: cooperative and comfortable Nutritional appearance: obese Respiratory Common normals: normal respiratory effort, no use of accessory muscles and clear to auscultation bilaterally Effort & inspection: able to speak in complete sentences Cardio Common normals: no JVD, regular rate, regular rhythm, S1 normal heart sound and S2 normal heart sound Extremity Other: Left Leg - surgical site does not appear to be infected but has superficial bruising. No fluctuance noted. Neuro Common normals: oriented x3, moves all extremities and no focal motor deficits Psych Common normals: mental status grossly normal, thought process normal, denies homicidal ideation and denies suicidal ideation DS: Data Data Completed and Pending Labs on day of discharge: Labs from last 24 hours 06/20/23 06/19/23 04:07 20:20 Hgb 8.3 L 8.8 L Hct 25.7 L 27.5 L Discharge Plan Discharge Disposition: Xfer Inpatient Rehab Fac Condition: Good Discharge Medications: Continued atorvastatin 40 mg tablet 40 mg PO BEDTIME baclofen 10 mg tablet 10 mg PO TID carbamazepine 400 mg tablet extended release 12 hr 400 mg PO Q12H clopidogrel 75 mg tablet 75 mg PO DAILY diazepam 5 mg tablet 5 mg PO Q6H PRN (Reason: anxiety) duloxetine 60 mg capsule,delayed release(DR/EC) 60 mg PO DAILY levalbuterol tartrate 45 mcg/actuation HFA aerosol inhaler 2 puff INHALATION Q6H PRN (Reason: shortness of breath) montelukast 10 mg tablet 10 mg PO BEDTIME pregabalin 100 mg capsule 100 mg PO Q12H terazosin 2 mg capsule 2 mg PO BEDTIME fluticasone propionate 50 mcg/actuation spray,suspension 1 spray INTRANASAL DAILY magnesium hydroxide 400 mg/5 mL suspension 30 ml PO DAILY PRN (Reason: constipation) omeprazole 40 mg capsule,delayed release(DR/EC) 40 mg PO DAILY oxycodone 5 mg capsule 5 mg PO Q8H PRN (Reason: pain) verapamil 240 mg tablet extended release 240 mg PO DAILY aspirin 81 mg tablet,delayed release (DR/EC) 81 mg PO DAILY Stiolto Respimat 2.5-2.5 mcg/actuation mist 2 inh INHALATION Q24H furosemide 40 mg tablet 40 mg PO DAILY lisinopril 5 mg tablet 5 mg PO DAILY Print Language: Telugu 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 Leonardo on 06/23/2023 at 2:30pm [phone] Follow up with orthopedic in 2-3 weeks
--- NOTE | 2023-06-20 14:36 | SWNOTE1 ---
[facility] is able to accept pt. HEBERT notified pt's daughter, pt, and nursing. HEBERT reached out to doctor for discharge order. HEBERT sent over dc med rec and DNR code status to [facility]. HEBERT completed HENS. HEBERT spoke to trips but they can't be here until 5:15, the nursing facility requested pt arrive before 5:00. HEBERT spoke to pt's daughter and she will transport and she will be here around 4:00. HEBERT notified nursing, pt, and [facility] of time. Pt is going there skilled. HEBERT took packet to med/surge floor.
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
== END 2023-06-20 15:10 | DRG 812 ==
LOC: ER 22:02 → MS 06-18 00:31
PROVIDERS: Registered Nurse; Admitting Provider Internal Medicine; Emergency Provider Emergency Medicine; PCP Family Medicine; Visit Provider Internal Medicine
DX: D62 Acute posthemorrhagic anemia (principal); I50.32 Chronic diastolic (congestive) heart failure; I11.0 Hypertensive heart disease with heart failure; Z96.642 Presence of left artificial hip joint; R53.1 Weakness; I48.0 Paroxysmal atrial fibrillation; J44.9 Chronic obstructive pulmonary disease, unspecified; E78.5 Hyperlipidemia, unspecified; G62.9 Polyneuropathy, unspecified; N40.0 Benign prostatic hyperplasia without lower urinary tract symptoms; Z87.891 Personal history of nicotine dependence; Z79.02 Long term (current) use of antithrombotics/antiplatelets; Z91.041 Radiographic dye allergy status; Z79.82 Long term (current) use of aspirin; Z79.899 Other long term (current) drug therapy
CPT/HCPCS: 36415; 36430; 73502; 80048; 81001; 82607; 82728; 82746; 83540; 83550; 85014; 85018; 85025; 85027; 86850; 86900; 86901; 93005; 94640; 94761; 96365; 96366; 96372; 96375; 96376; 97161; 97165; 97530; 99285; J1756; P9016